=== PATIENT | male | born 1955 | race Hispanic/Latino ===

== ENCOUNTER 2017-03-17 17:38 | Inpatient (IN) | payer OTHER ==
[2017-03-17] MEDS ORDERED: NACL 0.9% 1000 ML 1,000 ML IV ONE (19:54)
[2017-03-17] MEDS ORDERED: ATIVAN IV ONE ×2 (19:54→23:19)
--- NOTE | 2017-03-17 20:03 | Emergency Department Report ---
ED Alcohol HPI - General Chief Complaint: Alcohol Stated Complaint: DIZZINESS Time Seen by Provider: 03/17/17 19:45 Source: patient, family Mode of arrival: Ambulatory Limitations: Altered Mental Status - History of Present Illness Initial Comments: 61 yo male who comes in today due to falls. The patient was brought in via ems after being found outside. The patient is under the influence of etoh, and also admits to a history of etoh abuse. He states that he wants to stop etoh intake. Denies any other pertinent past medical history. MD Complaint: alcohol intoxication Last Drink: unknown Chronic Alcohol Use: Yes Previous Visits for Alcohol Intoxication?: No Recent Trauma: Yes (falls-frequent ) Associated Symptoms: other (left wrist pain ) Treatments Prior to Arrival: none - Related Data Home Medications Medication Instructions Recorded Confirmed Last Taken No Known Home Medications [No 06/30/15 06/30/15 Unknown Reported Home Medications] Allergies Allergy/AdvReac Type Severity Reaction Status Date / Time olanzapine [From Zyprexa] Allergy Nausea Verified 07/01/15 10:54 ED Review of Systems ROS: Stated complaint: DIZZINESS Other details as noted in HPI Constitutional: denies: chills, fever Eyes: denies: eye pain, eye discharge, vision change Respiratory: denies: cough, shortness of breath, wheezing Cardiovascular: denies: chest pain, palpitations Endocrine: no symptoms reported Gastrointestinal: denies: abdominal pain, nausea, diarrhea Genitourinary: denies: urgency, dysuria Musculoskeletal: arthralgia, myalgia Skin: denies: rash, lesions Neurological: denies: headache, weakness, paresthesias Psychiatric: anxiety Hematological/Lymphatic: denies: easy bleeding, easy bruising ED Past Medical Hx - Past Medical History Previous Medical History?: Yes Hx Seizures: Yes Hx Psychiatric Treatment: Yes (anxiety psychosis) Additional medical history: Other Hx is unclear - Surgical History Past Surgical History?: Yes Additional Surgical History: R knee surgery, left lung injury - Social History Smoking Status: Unknown if ever smoked Substance Use Type: Alcohol - Medications Home Medications: Home Medications Medication Instructions Recorded Confirmed Last Taken Type No Known Home Medications [No 06/30/15 06/30/15 Unknown History Reported Home Medications] ED Physical Exam - General Limitations: Altered Mental Status General appearance: anxious - Head Head exam: Present: atraumatic, normocephalic - Eye Eye exam: Present: normal appearance - ENT ENT exam: Present: mucous membranes moist - Neck Neck exam: Present: normal inspection - Respiratory Respiratory exam: Present: normal lung sounds bilaterally. Absent: respiratory distress - Cardiovascular Cardiovascular Exam: Present: regular rate, normal rhythm. Absent: systolic murmur, diastolic murmur, rubs, gallop - Extremities Exam Extremities exam: Present: normal inspection - Back Exam Back exam: Present: normal inspection - Neurological Exam Neurological exam: Present: alert, other (anxious ) - Psychiatric Psychiatric exam: Present: anxious - Skin Skin exam: Present: warm, dry, intact, normal color. Absent: rash ED Course Vital Signs 03/17/17 03/17/17 19:23 21:44 Temperature 98.7 F Pulse Rate 84 54 L Respiratory 16 16 Rate Blood Pressure 128/75 Blood Pressure 130/72 [Left] O2 Sat by Pulse 96 96 Oximetry - Reevaluation(s) Reevaluation #1: 03/17/17 22:52 I spoke with the hospitalist about admitting the patient. Patient to be admitted for hyponatremia, dehydration, and a history of etoh abuse. ED Medical Decision Making - Lab Data Result diagrams: 03/17/17 20:05 03/17/17 20:05 - Radiology Data Radiology results: report reviewed (CT head/cervical spine-negative, forearm/ wrist radiograph-negative) - Medical Decision Making History of etoh abuse History of falls Hyponatremia Dehydration - Differential Diagnosis History of etoh abuse, history of falls, hyponatremia, dehydration Critical care attestation.: If time is entered above; I have spent that time in minutes in the direct care of this critically ill patient, excluding procedure time. ED Disposition Clinical Impression: ETOH abuse, Hyponatremia, Falls Disposition: OP ADMIT IP TO THIS HOSP Is pt being admited?: Yes Does the pt Need Aspirin: No Condition: Stable Referrals: NATALIA COLLAZO MD [Primary Care Provider] - 3-5 Days Time of Disposition: 22:57
[2017-03-17 20:08] LABS: Amphetamine Screen,Urine PRESUMPTIVE NEGATIVE; Benzodiazepines Screen,Urine PRESUMPTIVE NEGATIVE; Cannabinoid Screen,Urine PRESUMPTIVE NEGATIVE; Cocaine Screen,Urine PRESUMPTIVE NEGATIVE; Methadone Screen,Urine PRESUMPTIVE NEGATIVE; Opiate Screen,Urine PRESUMPTIVE NEGATIVE
[2017-03-17 20:15] LABS: Basophils % (Auto) 0.2 % (0.0-1.8); Eosinophils % (Auto) 0.1 % (0.0-4.3); Hemoglobin 13.6 gm/dl (11.8-15.2); Lymphocytes # (Auto) 1.5 K/mm3 (1.2-5.4); Mean Corpuscular HGB Conc 35 % (32-34); Mean Corpuscular Hemoglobin 33 pg (28-32); Mean Corpuscular Volume 94 fl (84-94); Monocytes % (Auto) 13.5 % (0.0-7.3); Platelet Count 197 K/mm3 (140-440); Red Blood Count 4.18 M/mm3 (3.65-5.03); Red Cell Distribution Width 13.9 % (13.2-15.2)
[2017-03-17] MEDS: 1: FOLVITE 1 MG, INFUVITE 10 ML, VITAMIN B-1 100 MG in NACL 0.9% 1000 ML 988.8 ML 2: NA IV SCH ×2 (20:20→20:41)
[2017-03-17 20:32] LABS: Alanine Aminotransferase 20 units/L (7-56); Albumin 3.7 g/dL (3.9-5); BUN/Creatinine Ratio 18; Blood Urea Nitrogen 9 mg/dL (9-20); Calcium 8.3 mg/dL (8.4-10.2); Hemolysis Index 15
--- NOTE | 2017-03-17 20:41 | Cat Scan Report ---
FINAL REPORT EXAM: CT HEAD/BRAIN WO CON HISTORY: fall TECHNIQUE: CT head without contrast PRIORS: None. FINDINGS: No acute intra-axial or extra-axial hemorrhage is identified. There is no evidence of midline shift or mass effect. The ventricles and sulci are within normal limits. Contreras-white matter differentiation is intact. No acute parenchymal abnormalities seen. Bony calvarium is grossly intact. There is mucosal thickening within the maxillary sinuses bilaterally IMPRESSION: Chronic maxillary sinusitis No acute intracranial findings
--- NOTE | 2017-03-17 20:47 | Cat Scan Report ---
FINAL REPORT EXAM: CT CERVICAL SPINE WO CON HISTORY: fall TECHNIQUE: CT cervical spine with reconstructions PRIORS: None. FINDINGS: Vertebral bodies demonstrate normal height and alignment. There is spondylosis with multiple prominent anterior osteophytes some of which are bridging throughout the cervical spine. There is disc space narrowing C3-C4-C5-C6 and C6-C7. The facet joints demonstrate normal alignment. The spinous processes are intact. Craniocervical junction is unremarkable. C1 and C2 are intact. IMPRESSION: Spondylosis multilevel degenerative disc disease No acute traumatic abnormality identified
--- NOTE | 2017-03-17 21:43 | XRay Report ---
FINAL REPORT PROCEDURE: Left forearm. TECHNIQUE: Single view. HISTORY: Injury, arm pain. COMPARISON: No prior studies are available for comparison. FINDINGS: The bones appear intact. There are no definite fractures. There is arthritis involving the radiocarpal joint. The soft tissues are unremarkable. IMPRESSION: Limited study. No evidence of fracture.
--- NOTE | 2017-03-17 21:44 | XRay Report ---
FINAL REPORT PROCEDURE: Left wrist. TECHNIQUE: Two views. HISTORY: Injury, wrist pain. COMPARISON: No prior studies are available for comparison. FINDINGS: The bones appear intact without evidence of fracture. There is osteoarthritis involving the radiocarpal joint. There is osteoarthritis involving the articulation of the 1st metacarpal with the trapezium. The soft tissues are unremarkable. IMPRESSION: Osteoarthritis. No evidence of fracture.
[2017-03-17] MEDS ORDERED: NACL 0.9% 1000 ML 1,000 ML IV SCH ×2 (23:00→23:45)
--- NOTE | 2017-03-17 23:55 | History and Physical Report ---
History of Present Illness Date of examination: 03/17/17 History of present illness: 61-year-old man with a history of alcohol abuse, hypertension, seizure, anxiety was brought to the emergency room because he sustained a fall, complaining of pain in the wrist. His last drink was 4 days ago Review Of Systems: Constitutional: no weight loss Ears, eyes, nose, mouth and throat: no nasal congestion, no nasal discharge, no sinus pressure, blurry vision, diplopia Neck: No neck pain or rigidity. Cardiovascular: No chest pain, palpitations Respiratory: No shortness of breath, cough Gastrointestinal: No abdominal pain, hematochezia Genitourinary : no dysuria, frequency , hematuria Musculoskeletal: no muscle ache Integumentary: no rash, no pruritis Neurological: no parathesias, focal weakness Endocrine: no cold or heat intolerance, no polyuria or polydipsia Hematologic/Lymphatic: no easy bruising, no easy bleeding, no gland swelling Allergic/Immunologic: no urticaria, no angioedema. PAST MEDICAL HISTORY:alcohol abuse, hypertension, seizure, anxiety PAST SURGICAL HISTORY: Right knee, neck surgery FAMILY HISTORY: Hypertension SOCIAL HISTORY: Drinks alcohol, refuse to quantify, no alcohol, drugs Medications and Allergies Allergies Allergy/AdvReac Type Severity Reaction Status Date / Time olanzapine [From Zyprexa] Allergy Nausea Verified 07/01/15 10:54 Home Medications Medication Instructions Recorded Confirmed Last Taken Type No Known Home Medications [No 06/30/15 06/30/15 Unknown History Reported Home Medications] Active Meds: Active Medications Folic Acid 1 mg/ Multivitamins /Minerals 10 ml/ Thiamine HCl 100 mg/ Sodium Chloride 1,000 mls @ 125 mls/hr IV .BY DURATION [facility] Last Admin: 03/17/17 20:41 Dose: 125 mls/hr Sodium Chloride (Nacl 0.9% 1000 Ml) 1,000 mls @ 125 mls/hr IV .BY DURATION [facility] Last Admin: 03/17/17 20:20 Dose: 125 mls/hr Sodium Chloride (Nacl 0.9% 1000 Ml) 1,000 mls @ 125 mls/hr IV DIRECT [facility] Exam - Physical Exam Narrative exam: Gen. appearance: Patient lying in bed in no acute distress HEENT: Normocephalic/atraumatic, pupils equal round reactive to light, extra occular movement intact, no scleral icterus, no JVD or thyromegaly or nodule, neck is supple, mucous membrane moist, no erythema or exudate Heart: S1-S2, regular rate and rhythm Lungs: Clear to auscultation bilateral breathing comfortable Abdomen: Positive bowel sounds, nontender, nondistended, no organomegaly Extremities: No edema, cyanosis, clubbing Neuro:: Oriented 3 , cranial nerves II-12 intact, speech, motor intact, + tremors Skin: No rash, nodules, warm dry - Constitutional Vitals: Temp Pulse Resp BP Pulse Ox 98.7 F 54 L 16 130/72 96 03/17/17 19:23 03/17/17 21:44 03/17/17 21:44 03/17/17 21:44 03/17/17 21:44 Results - Labs CBC & Chem 7: 03/23/17 05:45 03/23/17 05:45 Labs: Abnormal lab results 03/17/17 03/17/17 Range/Units 20:05 20:05 WBC 15.0 H (4.5-11.0) K/mm3 MCH 33 H (28-32) pg MCHC 35 H (32-34) % Lymph % (Auto) 10.0 L (13.4-35.0) % [place] % (Auto) 13.5 H (0.0-7.3) % [place] # 2.0 H (0.0-0.8) K/mm3 Seg Neutrophils % 76.2 H (40.0-70.0) % Seg Neutrophils # 11.4 H (1.8-7.7) K/mm3 Sodium 121 L (137-145) mmol/L Potassium 3.5 L (3.6-5.0) mmol/L Chloride 79.5 L (98-107) mmol/L Creatinine 0.5 L (0.8-1.5) mg/dL Glucose 118 H (75-100) mg/dL Calcium 8.3 L (8.4-10.2) mg/dL AST 49 H (5-40) units/L Total Protein 6.0 L (6.3-8.2) g/dL Albumin 3.7 L (3.9-5) g/dL - Imaging and Cardiology CT Scan - head: report reviewed Assessment and Plan CT spine, x-ray of the wrist and forearm reviewed Assessment Hyponatremia Alcohol abuse Seizure Hypertension Anxiety Plan Admit to medicine Start IV fluid, monitor sodium level Start CIWA protocol with IV Ativan Continued appropriate option medicationS DVT prophylaxis
[2017-03-17] MEDS ORDERED: MILK OF MAGNESIA PO PRN (23:56)
[2017-03-17] MEDS ORDERED: DULCOLAX PR PRN (23:56)
[2017-03-17] MEDS ORDERED: ZOFRAN IV PRN (23:56)
[2017-03-18] MEDS: LEVAQUIN 750MG/150ML 750 MG/150 ML BAG IV SCH ×2 (00:29→11:13)
[2017-03-18] MEDS ORDERED: ATIVAN ONE (00:33)
[2017-03-18] MEDS ORDERED: LEVAQUIN 750MG/150ML 750 MG/150 ML BAG IV ONE (00:34)
[2017-03-18 08:07] LABS: Basophils % (Auto) 0.5 % (0.0-1.8); Eosinophils % (Auto) 0.2 % (0.0-4.3); Hematocrit 38.4 % (35.5-45.6); Hemoglobin 13.4 gm/dl (11.8-15.2); Lymphocytes # (Auto) 1.2 K/mm3 (1.2-5.4); Lymphocytes % (Auto) 13.7 % (13.4-35.0); Mean Corpuscular HGB Conc 35 % (32-34); Mean Corpuscular Hemoglobin 33 pg (28-32); Mean Corpuscular Volume 93 fl (84-94); Monocytes # (Auto) 1.1 K/mm3 (0.0-0.8); Platelet Count 167 K/mm3 (140-440); Red Blood Count 4.11 M/mm3 (3.65-5.03); Red Cell Distribution Width 13.6 % (13.2-15.2)
[2017-03-18 08:36] LABS: BUN/Creatinine Ratio 14; Blood Urea Nitrogen 7 mg/dL (9-20); Calcium 8.1 mg/dL (8.4-10.2); Hemolysis Index 13
[2017-03-18 10:01] LABS: BUN/Creatinine Ratio 14; Blood Urea Nitrogen 7 mg/dL (9-20); Calcium 8.1 mg/dL (8.4-10.2); Hemolysis Index 15
[2017-03-18] MEDS: LOVENOX SUB-Q SCH (11:14)
[2017-03-18] MEDS: ATIVAN IV PRN ×2 (12:11→20:45)
[2017-03-18] MEDS: TYLENOL PO PRN (14:44)
[2017-03-18] MEDS: NACL 0.9% 1000 ML 1,000 ML IV SCH (14:49)
[2017-03-18 15:02] LABS: BUN/Creatinine Ratio 13; Blood Urea Nitrogen 9 mg/dL (9-20); Calcium 8.1 mg/dL (8.4-10.2); Hemolysis Index 6
--- NOTE | 2017-03-18 17:42 | Progress Note ---
Assessment and Plan Hyponatremia Alcohol abuse Hypokalemia and hypomagnesemia Seizure Hypertension Anxiety DVD Spine Plan Continue with IV fluid, monitor sodium level CIWA protocol with IV Ativan Anti Seizurre meds Continue with antihypertensive medications Supplemental potassium and magnesium DVT prophylaxis Subjective Date of service: 03/18/17 Principal diagnosis: alcohol withdrawal Interval history: Complains of not being able to sleep and shaking Objective - Constitutional Vitals: Vital Signs - 12hr 03/18/17 03/18/17 07:51 14:48 Temperature 99.3 F 98.8 F Pulse Rate 70 61 Respiratory 20 18 Rate Blood Pressure 133/68 99/56 O2 Sat by Pulse 93 93 Oximetry General appearance: Present: no acute distress, well-nourished - EENT Eyes: PERRL, EOM intact Ears: bilateral: normal - Neck Neck: supple, normal ROM - Respiratory Respiratory effort: normal Respiratory: bilateral: CTA - Cardiovascular Rhythm: regular Heart Sounds: Present: S1 & S2. Absent: gallop, rub Extremities: pulses intact, No edema, normal color, Full ROM - Gastrointestinal General gastrointestinal: Present: soft, non-tender, non-distended, normal bowel sounds - Integumentary Integumentary: clear, warm, dry - Musculoskeletal Musculoskeletal: 1, strength equal bilaterally - Neurologic Neurologic: moves all extremities - Psychiatric Psychiatric: memory intact, appropriate mood/affect, intact judgment & insight - Labs CBC & Chem 7: 03/18/17 Unknown 03/18/17 Unknown Labs: Abnormal lab results 03/17/17 03/17/17 03/18/17 Range/Units 20:05 20:05 09:05 WBC 15.0 H (4.5-11.0) K/mm3 MCH 33 H (28-32) pg MCHC 35 H (32-34) % Lymph % (Auto) 10.0 L (13.4-35.0) % [place] % (Auto) 13.5 H (0.0-7.3) % [place] # 2.0 H (0.0-0.8) K/mm3 Seg Neutrophils % 76.2 H (40.0-70.0) % Seg Neutrophils # 11.4 H (1.8-7.7) K/mm3 Sodium 121 L 128 L (137-145) mmol/L Potassium 3.5 L 3.0 L (3.6-5.0) mmol/L Chloride 79.5 L 88.3 L (98-107) mmol/L BUN 7 L (9-20) mg/dL Creatinine 0.5 L 0.5 L (0.8-1.5) mg/dL Glucose 118 H (75-100) mg/dL Calcium 8.3 L 8.1 L (8.4-10.2) mg/dL AST 49 H (5-40) units/L Total Protein 6.0 L (6.3-8.2) g/dL Albumin 3.7 L (3.9-5) g/dL 03/18/17 03/18/17 03/18/17 Range/Units 12:40 Unknown Unknown WBC (4.5-11.0) K/mm3 MCH 33 H (28-32) pg MCHC 35 H (32-34) % Lymph % (Auto) (13.4-35.0) % [place] % (Auto) 13.0 H (0.0-7.3) % [place] # 1.1 H (0.0-0.8) K/mm3 Seg Neutrophils % 72.6 H (40.0-70.0) % Seg Neutrophils # (1.8-7.7) K/mm3 Sodium 131 L 130 L D (137-145) mmol/L Potassium 3.0 L 3.0 L (3.6-5.0) mmol/L Chloride 89.5 L 89.6 L (98-107) mmol/L BUN 7 L (9-20) mg/dL Creatinine 0.7 L 0.5 L (0.8-1.5) mg/dL Glucose 102 H (75-100) mg/dL Calcium 8.1 L 8.1 L (8.4-10.2) mg/dL AST (5-40) units/L Total Protein (6.3-8.2) g/dL Albumin (3.9-5) g/dL
[2017-03-18] MEDS ORDERED: D5W/0.45% NACL/KCL 30 MEQ 30 MEQ/1,000 ML BAG IV SCH (18:00)
[2017-03-18] MEDS ORDERED: MAGNESIUM SULFATE 4GM/100ML 4 GM/100 ML BAG IV ONE (20:00)
[2017-03-18] MEDS ORDERED: VITAMIN B-1 100 MG, FOLVITE 1 MG, INFUVITE 10 ML in NACL 0.9% 1000 ML 1,000 ML IV ONE (20:00)
[2017-03-19] MEDS: ATIVAN IV PRN ×5 (00:42→20:50)
[2017-03-19] MEDS: LOVENOX SUB-Q SCH (10:02)
[2017-03-19] MEDS: FOLVITE PO SCH (10:02)
[2017-03-19] MEDS: VITAMIN B-1 PO SCH (10:02)
[2017-03-19] MEDS: LEVAQUIN PO SCH (10:03)
[2017-03-19] MEDS: THERAGRAN Tab PO SCH (10:03)
--- NOTE | 2017-03-19 18:11 | Progress Note ---
Assessment and Plan Delirium tremens Hyponatremia Alcohol abuse Hypokalemia and hypomagnesemia Seizure Hypertension Anxiety DVD Spine Plan Continue with IV fluid, monitor sodium level CIWA protocol with IV Ativan Anti Seizurre meds Continue with antihypertensive medications Supplemental potassium and magnesium DVT prophylaxis Subjective Date of service: 03/19/17 Principal diagnosis: alcohol withdrawal Interval history: Complains of not being able to sleep and shaking. Confused. Objective - Constitutional Vitals: Vital Signs - 12hr 03/19/17 03/19/17 07:46 17:08 Temperature 98.1 F 98.7 F Pulse Rate 99 H 113 H Respiratory 20 18 Rate Blood Pressure 149/81 144/89 O2 Sat by Pulse 95 97 Oximetry General appearance: Present: no acute distress, well-nourished, other (confused) - EENT Eyes: PERRL, EOM intact - Neck Neck: supple, normal ROM - Respiratory Respiratory effort: normal Respiratory: bilateral: CTA - Breasts Breasts: normal - Cardiovascular Rhythm: regular Heart Sounds: Present: S1 & S2. Absent: gallop, rub Extremities: pulses intact, No edema, normal color, Full ROM - Gastrointestinal General gastrointestinal: Present: soft, non-tender, non-distended, normal bowel sounds - Integumentary Integumentary: clear, warm, dry - Musculoskeletal Musculoskeletal: 1, strength equal bilaterally - Neurologic Neurologic: moves all extremities - Psychiatric Psychiatric: memory intact, appropriate mood/affect, intact judgment & insight - Labs CBC & Chem 7: 03/18/17 Unknown 03/18/17 Unknown
[2017-03-19] MEDS ORDERED: KCL 20MEQ/100ML 20 MEQ/100 ML BAG IV SCH (19:00)
[2017-03-19] MEDS: KCL 10MEQ/100ML 10 MEQ/100 ML BAG IV SCH (20:32)
[2017-03-19] MEDS: K-DUR PO SCH (21:11)
[2017-03-20] MEDS: KCL 10MEQ/100ML 10 MEQ/100 ML BAG IV SCH ×2 (00:02→03:41)
[2017-03-20] MEDS: ATIVAN IV PRN ×6 (00:02→19:26)
[2017-03-20] MEDS: D5W/0.45% NACL/KCL 30 MEQ 30 MEQ/1,000 ML BAG IV SCH ×2 (08:43→23:09)
[2017-03-20] MEDS: THERAGRAN Tab PO SCH (09:33)
[2017-03-20] MEDS: LOVENOX SUB-Q SCH (09:33)
[2017-03-20] MEDS: LEVAQUIN PO SCH (09:34)
[2017-03-20] MEDS: K-DUR PO SCH ×2 (09:34→23:10)
[2017-03-20] MEDS: FOLVITE PO SCH (09:34)
[2017-03-20] MEDS: VITAMIN B-1 PO SCH (09:37)
--- NOTE | 2017-03-20 13:56 | Progress Note ---
Assessment and Plan 61-year-old man with a history of alcohol abuse, hypertension, seizure, anxiety was brought to the emergency room because he sustained a fall, complaining of pain in the wrist. His last drink was 4 days ago Delirium tremens Hyponatremia Alcohol abuse Hypokalemia and hypomagnesemia Seizure Hypertension Anxiety DJD of the spine Plan Continue with IV fluid, monitor sodium level CIWA protocol with IV Ativan Anti Seizurre meds Continue with antihypertensive medications Supplemental potassium and magnesium Recheck labs DVT prophylaxis Subjective Date of service: 03/20/17 Principal diagnosis: alcohol withdrawal Interval history: Drowsy. Just had ativan per pt's nurse. No ovrnight event reported to me Objective - Exam Narrative Exam: Constitutional: Drowsy from lorazepam. Head: Normocephalic atraumatic Eyes: Pupils are equal round and reactive to light Nose: No enlarged turbinates, no septal deviation. Mouth: Moist mucous membranes. Neck: Supple no thyromegaly. No bruit. No JVD Heart: Regular rate and rhythm, S1-S2 abnormal. No rubs murmurs or gallop Lungs: Clear to auscultation bilaterally no rales or rhonchi Abdomen: Soft, nontender. Bowel sound are present. Extremities: No edema no cyanosis and no clubbing. Neuro: Drowsy. all his limbs. Second to 12th cranial nerves intact Skin: No rashes no hyperemic spots Psychiatry: Drowsy. Calm. - Constitutional Vitals: Vital Signs - 12hr 03/20/17 03/20/17 03/20/17 04:58 08:11 12:40 Temperature 97.9 F 98.9 F Pulse Rate 60 97 H 67 Respiratory 20 20 Rate Blood Pressure 153/113 161/82 152/90 O2 Sat by Pulse 95 97 96 Oximetry - Labs CBC & Chem 7: 03/18/17 Unknown 03/18/17 Unknown
[2017-03-20 14:25] LABS: Basophils # (Auto) 0.1 K/mm3 (0.0-0.1); Basophils % (Auto) 0.6 % (0.0-1.8); Eosinophils # (Auto) 0.1 K/mm3 (0.0-0.4); Eosinophils % (Auto) 0.8 % (0.0-4.3); Hematocrit 39.7 % (35.5-45.6); Hemoglobin 13.7 gm/dl (11.8-15.2); Lymphocytes # (Auto) 1.2 K/mm3 (1.2-5.4); Lymphocytes % (Auto) 10.4 % (13.4-35.0); Mean Corpuscular HGB Conc 35 % (32-34); Mean Corpuscular Hemoglobin 33 pg (28-32); Mean Corpuscular Volume 95 fl (84-94); Monocytes # (Auto) 1.7 K/mm3 (0.0-0.8); Monocytes % (Auto) 14.3 % (0.0-7.3); Platelet Count 218 K/mm3 (140-440); Red Cell Distribution Width 14.1 % (13.2-15.2)
[2017-03-20 14:57] LABS: BUN/Creatinine Ratio 8; Blood Urea Nitrogen 4 mg/dL (9-20); Calcium 8.5 mg/dL (8.4-10.2); Hemolysis Index 12
[2017-03-21] MEDS: ATIVAN IV PRN ×5 (00:30→22:11)
[2017-03-21 06:53] LABS: Hematocrit 40.5 % (35.5-45.6); Mean Corpuscular HGB Conc 35 % (32-34); Mean Corpuscular Hemoglobin 33 pg (28-32); Mean Corpuscular Volume 97 fl (84-94); Platelet Count 204 K/mm3 (140-440); Red Blood Count 4.19 M/mm3 (3.65-5.03); Red Cell Distribution Width 14.1 % (13.2-15.2)
[2017-03-21 07:01] LABS: BUN/Creatinine Ratio 10; Blood Urea Nitrogen 6 mg/dL (9-20); Calcium 8.8 mg/dL (8.4-10.2); Hemolysis Index 14
[2017-03-21 08:25] LABS: Band Neutrophils # (Manual) 0.3 K/mm3; Basophils % (Manual) 0 % (0.0-1.8); Total Cells Counted 100
[2017-03-21 08:26] LABS: Anisocytosis Few
[2017-03-21] MEDS: K-DUR PO SCH ×2 (10:20→22:11)
[2017-03-21] MEDS: FOLVITE PO SCH (10:20)
[2017-03-21] MEDS: LEVAQUIN PO SCH (10:20)
[2017-03-21] MEDS: LOVENOX SUB-Q SCH (10:20)
[2017-03-21] MEDS: THERAGRAN Tab PO SCH (10:21)
[2017-03-21] MEDS: VITAMIN B-1 PO SCH (10:21)
--- NOTE | 2017-03-21 19:29 | Progress Note ---
Assessment and Plan 61-year-old man with a history of alcohol abuse, hypertension, seizure, anxiety was brought to the emergency room because he sustained a fall, complaining of pain in the wrist. His last drink was 4 days ago Delirium tremens Hyponatremia Alcohol abuse Hypokalemia and hypomagnesemia Seizure Hypertension Anxiety DJD of the spine Plan Continue with IV fluid, monitor sodium level CIWA protocol with IV Ativan Anti Seizurre meds Continue with antihypertensive medications Supplemental potassium and magnesium Recheck labs DVT prophylaxis Disposition: For placement Subjective Date of service: 03/21/17 Principal diagnosis: alcohol withdrawal Interval history: Drowsy. still confused. No overnight event reported to me. reviewed lab and radiological data Objective - Exam Narrative Exam: Constitutional: Drowsy from lorazepam. Head: Normocephalic atraumatic Eyes: Pupils are equal round and reactive to light Nose: No enlarged turbinates, no septal deviation. Mouth: Moist mucous membranes. Neck: Supple no thyromegaly. No bruit. No JVD Heart: Regular rate and rhythm, S1-S2 abnormal. No rubs murmurs or gallop Lungs: Clear to auscultation bilaterally no rales or rhonchi Abdomen: Soft, nontender. Bowel sound are present. Extremities: No edema no cyanosis and no clubbing. Neuro: Drowsy. all his limbs. Second to 12th cranial nerves intact Skin: No rashes no hyperemic spots Psychiatry: Drowsy. Calm. - Constitutional Vitals: Vital Signs - 12hr 03/21/17 07:51 Temperature 99.5 F Pulse Rate 105 H Respiratory 30 H Rate Blood Pressure 126/84 O2 Sat by Pulse 96 Oximetry - Labs CBC & Chem 7: 03/21/17 04:40 03/21/17 04:40 Labs: Abnormal lab results 03/21/17 03/21/17 Range/Units 04:40 04:40 MCV 97 H (84-94) fl MCH 33 H (28-32) pg MCHC 35 H (32-34) % Seg Neuts % (Manual) 77.0 H (40.0-70.0) % Lymphocytes % (Manual) 11.0 L (13.4-35.0) % Monocytes % (Manual) 8.0 H (0.0-7.3) % Lymphocytes # (Manual) 1.1 L (1.2-5.4) K/mm3 Sodium 130 L (137-145) mmol/L Chloride 91.7 L (98-107) mmol/L BUN 6 L (9-20) mg/dL Creatinine 0.6 L (0.8-1.5) mg/dL Glucose 121 H (75-100) mg/dL
[2017-03-22] MEDS: ATIVAN IV PRN ×2 (02:48→23:43)
[2017-03-22] MEDS: NACL 0.9% 1000 ML 1,000 ML IV SCH ×2 (05:55→23:44)
[2017-03-22 07:33] LABS: Mean Corpuscular HGB Conc 33 % (32-34); Mean Corpuscular Hemoglobin 32 pg (28-32); Mean Corpuscular Volume 96 fl (84-94); Platelet Count 209 K/mm3 (140-440); Red Blood Count 4.08 M/mm3 (3.65-5.03); Red Cell Distribution Width 14.5 % (13.2-15.2)
[2017-03-22 07:48] LABS: BUN/Creatinine Ratio 15; Blood Urea Nitrogen 9 mg/dL (9-20); Calcium 8.3 mg/dL (8.4-10.2); Hemolysis Index 1
[2017-03-22 08:50] LABS: Basophils % (Manual) 0 % (0.0-1.8); Total Cells Counted 100
[2017-03-22 08:51] LABS: Anisocytosis Few; Macrocytosis Few; Platelet Estimate Consistent w Auto
[2017-03-22] MEDS: FOLVITE PO SCH (09:49)
[2017-03-22] MEDS: THERAGRAN Tab PO SCH (09:49)
[2017-03-22] MEDS: VITAMIN B-1 PO SCH (09:49)
[2017-03-22] MEDS: K-DUR PO SCH ×2 (09:49→22:52)
[2017-03-22] MEDS: LOVENOX SUB-Q SCH (09:49)
[2017-03-22] MEDS: LEVAQUIN PO SCH (09:50)
--- NOTE | 2017-03-22 10:05 | Progress Note ---
Assessment and Plan Assessment and plan: 61-year-old man with a history of alcohol abuse, hypertension, seizure, anxiety was brought to the emergency room because he sustained a fall, complaining of pain in the wrist. His last drink was 4 days ago Delirium tremens Hyponatremia Alcohol abuse Hypokalemia and hypomagnesemia Seizure Hypertension Anxiety DJD of the spine Plan Continue with IV fluid, monitor sodium level CIWA protocol with IV Ativan Anti Seizure meds Continue with antihypertensive medications Supplemental potassium and magnesium Recheck labs DVT prophylaxis Disposition: For placement History Interval history: Generalized weakness Hospitalist Physical - Physical exam Narrative exam: Gen Appearance: Not in acute distress HEENT: Normocephalic, atraumatic Lungs:Clear to auscultation bilaterally, no crackles or wheeze Heart :S1 and S2 regular, no murmurs, rubs or gallop Abdomen: Soft, non-tender, non distended, Normal bowel sounds Extremities no edema clubbing no cyanosis, Neuro: Awake,alert, no focal neurological signs - Constitutional Vitals: Temp Pulse Resp BP Pulse Ox 99.8 F H 109 H 20 116/60 97 03/21/17 23:30 03/22/17 08:19 03/21/17 23:30 03/22/17 08:19 03/22/17 08:19 Results - Labs CBC & Chem 7: 03/23/17 05:45 03/23/17 05:45 Labs: Laboratory Last Values WBC 7.3 K/mm3 (4.5-11.0) 03/22/17 06:40 RBC 4.08 M/mm3 (3.65-5.03) 03/22/17 06:40 Hgb 13.0 gm/dl (11.8-15.2) 03/22/17 06:40 Hct 39.0 % (35.5-45.6) 03/22/17 06:40 MCV 96 fl (84-94) H 03/22/17 06:40 MCH 32 pg (28-32) 03/22/17 06:40 MCHC 33 % (32-34) 03/22/17 06:40 RDW 14.5 % (13.2-15.2) 03/22/17 06:40 Plt Count 209 K/mm3 (140-440) 03/22/17 06:40 Lymph % (Auto) 10.4 % (13.4-35.0) L 03/20/17 13:44 Major % (Auto) Practice Managers 03/22/17 06:40 Eos % (Auto) 0.8 % (0.0-4.3) 03/20/17 13:44 Baso % (Auto) 0.6 % (0.0-1.8) 03/20/17 13:44 Lymph # 1.2 K/mm3 (1.2-5.4) 03/20/17 13:44 Major # 1.7 K/mm3 (0.0-0.8) H 03/20/17 13:44 Eos # 0.1 K/mm3 (0.0-0.4) 03/20/17 13:44 Baso # 0.1 K/mm3 (0.0-0.1) 03/20/17 13:44 Add Manual Diff Complete 03/22/17 06:40 Total Counted 100 03/22/17 06:40 Seg Neutrophils % 73.9 % (40.0-70.0) H 03/20/17 13:44 Seg Neuts % (Manual) 65.0 % (40.0-70.0) 03/22/17 06:40 Band Neutrophils % 0 % 03/22/17 06:40 Lymphocytes % (Manual) 11.0 % (13.4-35.0) L 03/22/17 06:40 Reactive Lymphs % (Man) 0 % 03/22/17 06:40 Monocytes % (Manual) 22.0 % (0.0-7.3) H 03/22/17 06:40 Eosinophils % (Manual) 2.0 % (0.0-4.3) 03/22/17 06:40 Basophils % (Manual) 0 % (0.0-1.8) 03/22/17 06:40 Metamyelocytes % 0 % 03/22/17 06:40 Myelocytes % 0 % 03/22/17 06:40 Promyelocytes % 0 % 03/22/17 06:40 Blast Cells % 0 % 03/22/17 06:40 Nucleated RBC % Not Reportable 03/22/17 06:40 Seg Neutrophils # 8.7 K/mm3 (1.8-7.7) H 03/20/17 13:44 Seg Neutrophils # Man 4.7 K/mm3 (1.8-7.7) 03/22/17 06:40 Band Neutrophils # 0.0 K/mm3 03/22/17 06:40 Lymphocytes # (Manual) 0.8 K/mm3 (1.2-5.4) L 03/22/17 06:40 Abs React Lymphs (Man) 0.0 K/mm3 03/22/17 06:40 Monocytes # (Manual) 1.6 K/mm3 (0.0-0.8) H 03/22/17 06:40 Eosinophils # (Manual) 0.1 K/mm3 (0.0-0.4) 03/22/17 06:40 Basophils # (Manual) 0.0 K/mm3 (0.0-0.1) 03/22/17 06:40 Metamyelocytes # 0.0 K/mm3 03/22/17 06:40 Myelocytes # 0.0 K/mm3 03/22/17 06:40 Promyelocytes # 0.0 K/mm3 03/22/17 06:40 Blast Cells # 0.0 K/mm3 03/22/17 06:40 WBC Morphology Not Reportable 03/22/17 06:40 Hypersegmented Neuts Not Reportable 03/22/17 06:40 Hyposegmented Neuts Not Reportable 03/22/17 06:40 Hypogranular Neuts Not Reportable 03/22/17 06:40 Smudge Cells Not Reportable 03/22/17 06:40 Toxic Granulation Not Reportable 03/22/17 06:40 Toxic Vacuolation Not Reportable 03/22/17 06:40 Dohle Bodies Not Reportable 03/22/17 06:40 Pelger-Huet Anomaly Not Reportable 03/22/17 06:40 Lana Rods Not Reportable 03/22/17 06:40 Platelet Estimate Consistent w auto 03/22/17 06:40 Clumped Platelets Not Reportable 03/22/17 06:40 Plt Clumps, EDTA Not Reportable 03/22/17 06:40 Large Platelets Not Reportable 03/22/17 06:40 Giant Platelets Not Reportable 03/22/17 06:40 Platelet Satelliting Not Reportable 03/22/17 06:40 Plt Morphology Comment Not Reportable 03/22/17 06:40 RBC Morphology Not Reportable 03/22/17 06:40 Dimorphic RBCs Not Reportable 03/22/17 06:40 Polychromasia Not Reportable 03/22/17 06:40 Hypochromasia Not Reportable 03/22/17 06:40 Poikilocytosis Not Reportable 03/22/17 06:40 Anisocytosis Few 03/22/17 06:40 Microcytosis Not Reportable 03/22/17 06:40 Macrocytosis Few 03/22/17 06:40 Spherocytes Not Reportable 03/22/17 06:40 Pappenheimer Bodies Not Reportable 03/22/17 06:40 Sickle Cells Not Reportable 03/22/17 06:40 Target Cells Not Reportable 03/22/17 06:40 Tear Drop Cells Not Reportable 03/22/17 06:40 Ovalocytes Not Reportable 03/22/17 06:40 Helmet Cells Not Reportable 03/22/17 06:40 Alfonso-Earth Bodies Not Reportable 03/22/17 06:40 [place] Rings Not Reportable 03/22/17 06:40 Osman Cells Not Reportable 03/22/17 06:40 Bite Cells Not Reportable 03/22/17 06:40 Crenated Cell Not Reportable 03/22/17 06:40 Elliptocytes Not Reportable 03/22/17 06:40 Acanthocytes (Spur) Not Reportable 03/22/17 06:40 Rouleaux Not Reportable 03/22/17 06:40 Hemoglobin C Crystals Not Reportable 03/22/17 06:40 Schistocytes Not Reportable 03/22/17 06:40 Malaria parasites Not Reportable 03/22/17 06:40 Shahzad Bodies Not Reportable 03/22/17 06:40 Hem Pathologist Commnt No 03/22/17 06:40 Sodium 132 mmol/L (137-145) L 03/22/17 06:40 Potassium 4.2 mmol/L (3.6-5.0) 03/22/17 06:40 Chloride 95.5 mmol/L (98-107) L 03/22/17 06:40 Carbon Dioxide 25 mmol/L (22-30) 03/22/17 06:40 Anion Gap 16 mmol/L 03/22/17 06:40 BUN 9 mg/dL (9-20) 03/22/17 06:40 Creatinine 0.6 mg/dL (0.8-1.5) L 03/22/17 06:40 Estimated GFR > 60 ml/min 03/22/17 06:40 BUN/Creatinine Ratio 15 % 03/22/17 06:40 Glucose 107 mg/dL (75-100) H 03/22/17 06:40 Calcium 8.3 mg/dL (8.4-10.2) L 03/22/17 06:40 Phosphorus 2.40 mg/dL (2.5-4.5) L 03/20/17 14:14 Magnesium 1.50 mg/dL (1.7-2.3) L 03/20/17 14:14 Total Bilirubin 1.20 mg/dL (0.1-1.2) 03/17/17 20:05 AST 49 units/L (5-40) H 03/17/17 20:05 ALT 20 units/L (7-56) 03/17/17 20:05 Alkaline Phosphatase 75 units/L (35-129) 03/17/17 20:05 Total Protein 6.0 g/dL (6.3-8.2) L 03/17/17 20:05 Albumin 3.7 g/dL (3.9-5) L 03/17/17 20:05 Albumin/Globulin Ratio 1.6 % 03/17/17 20:05 Urine Opiates Screen Presumptive negative 03/17/17 19:49 Urine Methadone Screen Presumptive negative 03/17/17 19:49 Ur Barbiturates Screen Presumptive negative 03/17/17 19:49 Ur Phencyclidine Scrn Presumptive negative 03/17/17 19:49 Ur Amphetamines Screen Presumptive negative 03/17/17 19:49 U Benzodiazepines Scrn Presumptive negative 03/17/17 19:49 Urine Cocaine Screen Presumptive negative 03/17/17 19:49 U Marijuana (THC) Screen Presumptive negative 03/17/17 19:49 Drugs of Abuse Note Disclamer 03/17/17 19:49 Plasma/Serum Alcohol < 0.01 gm% (0-0.07) 03/17/17 20:05
[2017-03-22 12:10] LABS: Magnesium 1.5 mg/dL (1.7-2.3)
[2017-03-22] MEDS ORDERED: MAGNESIUM SULFATE 4GM/100ML 4 GM/100 ML BAG IV ONE (14:11)
[2017-03-22] MEDS: TYLENOL PO PRN (23:45)
[2017-03-23] MEDS: ATIVAN IV PRN ×2 (03:15→22:02)
[2017-03-23 06:51] LABS: Hematocrit 36.1 % (35.5-45.6); Hemoglobin 12.4 gm/dl (11.8-15.2); Mean Corpuscular HGB Conc 34 % (32-34); Mean Corpuscular Hemoglobin 33 pg (28-32); Mean Corpuscular Volume 95 fl (84-94); Platelet Count 214 K/mm3 (140-440); Red Cell Distribution Width 14.7 % (13.2-15.2)
[2017-03-23 08:23] LABS: BUN/Creatinine Ratio 15; Blood Urea Nitrogen 9 mg/dL (9-20); Hemolysis Index 3
[2017-03-23 08:51] LABS: Anisocytosis Few; Band Neutrophils # (Manual) 0.1 K/mm3; Basophils % (Manual) 0 % (0.0-1.8); Total Cells Counted 100
[2017-03-23] MEDS: LEVAQUIN PO SCH (10:18)
[2017-03-23] MEDS: K-DUR PO SCH ×2 (10:18→22:02)
[2017-03-23] MEDS: FOLVITE PO SCH (10:18)
[2017-03-23] MEDS: THERAGRAN Tab PO SCH (10:18)
[2017-03-23] MEDS: LOVENOX SUB-Q SCH (10:19)
[2017-03-23] MEDS: VITAMIN B-1 PO SCH (10:19)
[2017-03-23] MEDS: NACL 0.9% 1000 ML 1,000 ML IV SCH ×2 (10:20→22:02)
--- NOTE | 2017-03-23 16:56 | Progress Note ---
Hospitalist Physical - Physical exam Narrative exam: Gen Appearance: Not in acute distress HEENT: Normocephalic, atraumatic Lungs:Clear to auscultation bilaterally, no crackles or wheeze Heart :S1 and S2 regular, no murmurs, rubs or gallop Abdomen: Soft, non-tender, non distended, Normal bowel sounds Extremities no edema clubbing no cyanosis, Neuro: AAO x 3, normal speech, no focal neurological signs - Constitutional Vitals: Temp Pulse Resp BP Pulse Ox 98.6 F 100 H 18 124/82 96 03/23/17 15:15 03/23/17 15:15 03/23/17 15:15 03/23/17 15:15 03/23/17 15:15 General appearance: Present: no acute distress, well-nourished, other (confused) Results - Labs CBC & Chem 7: 03/23/17 05:45 03/23/17 05:45 Labs: Laboratory Last Values WBC 6.6 K/mm3 (4.5-11.0) 03/23/17 05:45 RBC 3.80 M/mm3 (3.65-5.03) 03/23/17 05:45 Hgb 12.4 gm/dl (11.8-15.2) 03/23/17 05:45 Hct 36.1 % (35.5-45.6) 03/23/17 05:45 MCV 95 fl (84-94) H 03/23/17 05:45 MCH 33 pg (28-32) H 03/23/17 05:45 MCHC 34 % (32-34) 03/23/17 05:45 RDW 14.7 % (13.2-15.2) 03/23/17 05:45 Plt Count 214 K/mm3 (140-440) 03/23/17 05:45 Lymph % (Auto) 10.4 % (13.4-35.0) L 03/20/17 13:44 [place]mer % (Auto) Developer Programmer 03/23/17 05:45 Eos % (Auto) 0.8 % (0.0-4.3) 03/20/17 13:44 Baso % (Auto) 0.6 % (0.0-1.8) 03/20/17 13:44 Lymph # 1.2 K/mm3 (1.2-5.4) 03/20/17 13:44 [place] # 1.7 K/mm3 (0.0-0.8) H 03/20/17 13:44 Eos # 0.1 K/mm3 (0.0-0.4) 03/20/17 13:44 Baso # 0.1 K/mm3 (0.0-0.1) 03/20/17 13:44 Add Manual Diff Complete 03/23/17 05:45 Total Counted 100 03/23/17 05:45 Seg Neutrophils % 73.9 % (40.0-70.0) H 03/20/17 13:44 Seg Neuts % (Manual) 62.0 % (40.0-70.0) 03/23/17 05:45 Band Neutrophils % 1.0 % 03/23/17 05:45 Lymphocytes % (Manual) 15.0 % (13.4-35.0) 03/23/17 05:45 Reactive Lymphs % (Man) 0 % 03/23/17 05:45 Monocytes % (Manual) 18.0 % (0.0-7.3) H 03/23/17 05:45 Eosinophils % (Manual) 4.0 % (0.0-4.3) 03/23/17 05:45 Basophils % (Manual) 0 % (0.0-1.8) 03/23/17 05:45 Metamyelocytes % 0 % 03/23/17 05:45 Myelocytes % 0 % 03/23/17 05:45 Promyelocytes % 0 % 03/23/17 05:45 Blast Cells % 0 % 03/23/17 05:45 Nucleated RBC % Not Reportable 03/23/17 05:45 Seg Neutrophils # 8.7 K/mm3 (1.8-7.7) H 03/20/17 13:44 Seg Neutrophils # Man 4.1 K/mm3 (1.8-7.7) 03/23/17 05:45 Band Neutrophils # 0.1 K/mm3 03/23/17 05:45 Lymphocytes # (Manual) 1.0 K/mm3 (1.2-5.4) L 03/23/17 05:45 Abs React Lymphs (Man) 0.0 K/mm3 03/23/17 05:45 Monocytes # (Manual) 1.2 K/mm3 (0.0-0.8) H 03/23/17 05:45 Eosinophils # (Manual) 0.3 K/mm3 (0.0-0.4) 03/23/17 05:45 Basophils # (Manual) 0.0 K/mm3 (0.0-0.1) 03/23/17 05:45 Metamyelocytes # 0.0 K/mm3 03/23/17 05:45 Myelocytes # 0.0 K/mm3 03/23/17 05:45 Promyelocytes # 0.0 K/mm3 03/23/17 05:45 Blast Cells # 0.0 K/mm3 03/23/17 05:45 WBC Morphology Not Reportable 03/23/17 05:45 Hypersegmented Neuts Not Reportable 03/23/17 05:45 Hyposegmented Neuts Not Reportable 03/23/17 05:45 Hypogranular Neuts Not Reportable 03/23/17 05:45 Smudge Cells Not Reportable 03/23/17 05:45 Toxic Granulation Not Reportable 03/23/17 05:45 Toxic Vacuolation Not Reportable 03/23/17 05:45 Dohle Bodies Not Reportable 03/23/17 05:45 Pelger-Huet Anomaly Not Reportable 03/23/17 05:45 Lana Rods Not Reportable 03/23/17 05:45 Platelet Estimate Not Reportable 03/23/17 05:45 Clumped Platelets Not Reportable 03/23/17 05:45 Plt Clumps, EDTA Not Reportable 03/23/17 05:45 Large Platelets Not Reportable 03/23/17 05:45 Giant Platelets Not Reportable 03/23/17 05:45 Platelet Satelliting Not Reportable 03/23/17 05:45 Plt Morphology Comment Not Reportable 03/23/17 05:45 RBC Morphology Not Reportable 03/23/17 05:45 Dimorphic RBCs Not Reportable 03/23/17 05:45 Polychromasia Not Reportable 03/23/17 05:45 Hypochromasia Not Reportable 03/23/17 05:45 Poikilocytosis Not Reportable 03/23/17 05:45 Anisocytosis Few 03/23/17 05:45 Microcytosis Not Reportable 03/23/17 05:45 Macrocytosis Not Reportable 03/23/17 05:45 Spherocytes Not Reportable 03/23/17 05:45 Pappenheimer Bodies Not Reportable 03/23/17 05:45 Sickle Cells Not Reportable 03/23/17 05:45 Target Cells Not Reportable 03/23/17 05:45 Tear Drop Cells Not Reportable 03/23/17 05:45 Ovalocytes Not Reportable 03/23/17 05:45 Helmet Cells Not Reportable 03/23/17 05:45 Alfonso-Ak Chin Bodies Not Reportable 03/23/17 05:45 [place] Rings Not Reportable 03/23/17 05:45 Osman Cells Not Reportable 03/23/17 05:45 Bite Cells Not Reportable 03/23/17 05:45 Crenated Cell Not Reportable 03/23/17 05:45 Elliptocytes Not Reportable 03/23/17 05:45 Acanthocytes (Spur) Not Reportable 03/23/17 05:45 Rouleaux Not Reportable 03/23/17 05:45 Hemoglobin C Crystals Not Reportable 03/23/17 05:45 Schistocytes Not Reportable 03/23/17 05:45 Malaria parasites Not Reportable 03/23/17 05:45 Shahzad Bodies Not Reportable 03/23/17 05:45 Hem Pathologist Commnt No 03/23/17 05:45 Sodium 135 mmol/L (137-145) L 03/23/17 05:45 Potassium 4.4 mmol/L (3.6-5.0) 03/23/17 05:45 Chloride 98.6 mmol/L (98-107) 03/23/17 05:45 Carbon Dioxide 23 mmol/L (22-30) 03/23/17 05:45 Anion Gap 18 mmol/L 03/23/17 05:45 BUN 9 mg/dL (9-20) 03/23/17 05:45 Creatinine 0.6 mg/dL (0.8-1.5) L 03/23/17 05:45 Estimated GFR > 60 ml/min 03/23/17 05:45 BUN/Creatinine Ratio 15 % 03/23/17 05:45 Glucose 106 mg/dL (75-100) H 03/23/17 05:45 Calcium 8.0 mg/dL (8.4-10.2) L 03/23/17 05:45 Phosphorus 3.00 mg/dL (2.5-4.5) 03/22/17 11:09 Magnesium 2.00 mg/dL (1.7-2.3) 03/23/17 05:45 Total Bilirubin 1.20 mg/dL (0.1-1.2) 03/17/17 20:05 AST 49 units/L (5-40) H 03/17/17 20:05 ALT 20 units/L (7-56) 03/17/17 20:05 Alkaline Phosphatase 75 units/L (35-129) 03/17/17 20:05 Total Protein 6.0 g/dL (6.3-8.2) L 03/17/17 20:05 Albumin 3.7 g/dL (3.9-5) L 03/17/17 20:05 Albumin/Globulin Ratio 1.6 % 03/17/17 20:05 Urine Opiates Screen Presumptive negative 03/17/17 19:49 Urine Methadone Screen Presumptive negative 03/17/17 19:49 Ur Barbiturates Screen Presumptive negative 03/17/17 19:49 Ur Phencyclidine Scrn Presumptive negative 03/17/17 19:49 Ur Amphetamines Screen Presumptive negative 03/17/17 19:49 U Benzodiazepines Scrn Presumptive negative 03/17/17 19:49 Urine Cocaine Screen Presumptive negative 03/17/17 19:49 U Marijuana (THC) Screen Presumptive negative 03/17/17 19:49 Drugs of Abuse Note Disclamer 03/17/17 19:49 Plasma/Serum Alcohol < 0.01 gm% (0-0.07) 03/17/17 20:05
[2017-03-23] MEDS: TYLENOL PO PRN (22:03)
[2017-03-24] MEDS: NACL 0.9% 1000 ML 1,000 ML IV SCH (06:25)
[2017-03-24] MEDS: LEVAQUIN PO SCH (11:33)
[2017-03-24] MEDS: K-DUR PO SCH (11:33)
[2017-03-24] MEDS: THERAGRAN Tab PO SCH (11:33)
[2017-03-24] MEDS: FOLVITE PO SCH (11:33)
[2017-03-24] MEDS: VITAMIN B-1 PO SCH (11:34)
[2017-03-24] MEDS: LOVENOX SUB-Q SCH (11:34)
--- NOTE | 2017-03-24 12:15 | Discharge Summary ---
Providers - Providers Date of Admission: 03/17/17 23:56 Date of discharge: 03/24/17 Attending physician: NATALIA GOMEZ 03/23/17 10:13 Physical Therapy Evaluation and Treat [CONS] Routine Comment: Reason For Exam: Gen weakness Primary care physician: NATALIA COLLAZO Hospitalization Condition: Fair Disposition: DC-01 TO HOME OR SELFCARE Core Measure Documentation - Palliative Care Palliative Care/ Comfort Measures: Not Applicable - Core Measures Any of the following diagnoses?: none Exam - Constitutional Vitals: Temp Pulse Resp BP Pulse Ox 97.6 F 91 H 20 144/86 95 03/24/17 07:44 03/24/17 00:23 03/24/17 07:44 03/24/17 07:44 03/24/17 00:23 Plan Activity: advance as tolerated Diet: regular Additional Instructions: 1.Follow up with PCP or [facility] in 1 week. Follow up with: NATALIA COLLAZO MD [Primary Care Provider] - 3-5 Days Prescriptions: Atenolol [Tenormin] 25 mg PO QDAY #30 tablet Folic Acid [Folvite] 1 mg PO DAILY #30 tablet Multivitamin Tab [Multiple Vitamin TAB (Theragran)] 1 each PO DAILY #30 tablet Thiamine [Vitamin B-1] 100 mg PO QDAY #30 tablet
[2017-03-24] MEDS ORDERED: TENORMIN PO SCH (13:00)
[2017-03-24 13:42] VITALS: BP 127/73
== END 2017-03-24 16:20 | disposition home or self-care (01) | DRG 92 ==
LOC: ED 17:38 → 3A 23:56
PROVIDERS: ADMIT Internal Medicine; ATTEND Internal Medicine
DX: G25.2 Other specified forms of tremor (principal); E87.1 Hypo-osmolality and hyponatremia; F41.9 Anxiety disorder, unspecified; F10.10 Alcohol abuse, uncomplicated; Y90.9 Presence of alcohol in blood, level not specified; E87.6 Hypokalemia; E83.42 Hypomagnesemia; Z82.49 Family history of ischemic heart disease and other diseases of the circulatory system; Z88.8 Allergy status to other drugs, medicaments and biological substances
CPT/HCPCS: 36415; 70450; 72125; 80048; 80053; 80307; 80320; 83735; 84100; 85007; 85025; G0480; J1650; J1956; J2060; J3411; J3475; J3480; J7030

== ENCOUNTER 2017-03-25 18:51 | Emergency (ER) | payer SELFPAY ==
[2017-03-25] MEDS ORDERED: NACL 0.9% 1000 ML 1,000 ML IV ONE (23:25)
[2017-03-26] MEDS ORDERED: TYLENOL ONE (01:00)
[2017-03-26 01:01] LABS: Hematocrit 35.3 % (35.5-45.6); Hemoglobin 12.3 gm/dl (11.8-15.2); Mean Corpuscular HGB Conc 35 % (32-34); Mean Corpuscular Hemoglobin 33 pg (28-32); Mean Corpuscular Volume 94 fl (84-94); Platelet Count 413 K/mm3 (140-440); Red Blood Count 3.77 M/mm3 (3.65-5.03); Red Cell Distribution Width 14.2 % (13.2-15.2)
[2017-03-26] MEDS ORDERED: TYLENOL PO ONE (01:01)
[2017-03-26 01:04] LABS: BUN/Creatinine Ratio 20; Blood Urea Nitrogen 10 mg/dL (9-20); Calcium 8.5 mg/dL (8.4-10.2); Hemolysis Index 6
--- NOTE | 2017-03-26 01:22 | XRay Report ---
FINAL REPORT PROCEDURE: XR KNEE BILAT 1-2V TECHNIQUE: RIGHT knee radiographs, AP, lateral and sunrise views. CPT 19390 HISTORY: fall COMPARISON: No prior studies are available for comparison. FINDINGS: RIGHT KNEE: There is moderate degenerative arthrosis of the knee and patellofemoral joint. There are ossified bodies in the popliteal fossa which could be fabellas. Ossification in chronic popliteal cyst also considered. There is no fracture or malalignment. LEFT KNEE: There is chronic degenerative arthrosis of the knee joint and patellofemoral joint. There is no fracture or malalignment. Soft tissues are unremarkable. IMPRESSION: Chronic changes as described. There is no acute abnormality..
[2017-03-26 04:03] LABS: Band Neutrophils # (Manual) 0.3 K/mm3; Total Cells Counted 100
[2017-03-26 04:04] LABS: RBC Morphology Normal
[2017-03-26] MEDS ORDERED: NORCO 5/325 PO ONE (07:35)
--- NOTE | 2017-03-26 07:42 | Emergency Department Report ---
HPI - General Chief Complaint: Fall Time Seen by Provider: 03/26/17 07:23 - HPI HPI: Room 19 The patient is a 61-year-old male presenting with a chief complaint knee pain and back pain. Patient states for the past 2-3 days his knees would "pop out of place." The patient states yesterday he fell in the snow injuring his knees and low back. The patient is requesting a walker Location: [See above] Duration: 2-3 days Quality: Pain Severity: Moderate Modifying factors: [see above] Context: [see above] Mode of transportation: [not driving] ED Past Medical Hx - Past Medical History Hx Seizures: Yes Hx Psychiatric Treatment: Yes (anxiety psychosis) Additional medical history: Other Hx is unclear - Surgical History Past Surgical History?: No Additional Surgical History: R knee surgery, left lung injury - Family History Family history: no significant - Social History Smoking Status: Never Smoker Substance Use Type: None (denies illicit drug use) - Medications Home Medications: Home Medications Medication Instructions Recorded Confirmed Last Taken Type Atenolol [Tenormin] 25 mg PO QDAY #30 tablet 03/24/17 Unknown Rx Folic Acid [Folvite] 1 mg PO DAILY #30 tablet 03/24/17 Unknown Rx Multivitamin Tab [Multiple Vitamin 1 each PO DAILY #30 tablet 03/24/17 Unknown Rx TAB (Theragran)] Thiamine [Vitamin B-1] 100 mg PO QDAY #30 tablet 03/24/17 Unknown Rx HYDROcodone/APAP 5-325 [[place] 1 - 2 each PO Q6HR PRN #14 tablet 03/26/17 Unknown Rx 5/325] Naproxen [Naprosyn] 500 mg PO Q12H PRN #20 tablet 03/26/17 Unknown Rx ED Review of Systems ROS: Stated complaint: ETOH KNEES HURT Other details as noted in HPI Musculoskeletal: back pain, arthralgia Physical Exam - Physical Exam Vital Signs: Vital Signs 03/25/17 03/26/17 03/26/17 23:06 03:28 07:03 Temperature 98.9 F Pulse Rate 102 H 68 Respiratory 20 20 Rate Blood Pressure 74/50 115/68 [Left] O2 Sat by Pulse 98 Oximetry Physical Exam: GENERAL: The patient is well-developed male with poor hygiene lying on stretcher not appearing to be in acute distress HEENT: Normocephalic. Atraumatic. Extraocular motions are intact. Patient has moist mucous membranes. Partial blindness NECK: Supple. Trachea midline CHEST/LUNGS: Clear to auscultation. There is no respiratory distress noted. HEART/CARDIOVASCULAR: Regular. There is no tachycardia. There is no gallop rub or murmur. ABDOMEN: Abdomen is soft, nontender. Patient has normal bowel sounds. There is no abdominal distention. SKIN: There is no rash. There is no edema. There is no diaphoresis. NEURO: The patient is awake, alert, and oriented. The patient is cooperative. The patient has no focal neurologic deficits. The patient has normal speech. Cranial nerves II through XII grossly intact (except cranial nerve II with patient's partial blindness), no drift MUSCULOSKELETAL: There is no lumbar axial step off. No effusion appreciated or knees bilaterally. There is no evidence of acute injury. ED Course Vital Signs 03/25/17 03/26/17 03/26/17 23:06 03:28 07:03 Temperature 98.9 F Pulse Rate 102 H 68 Respiratory 20 20 Rate Blood Pressure 74/50 115/68 [Left] O2 Sat by Pulse 98 Oximetry ED Medical Decision Making - Lab Data Result diagrams: 03/25/17 23:18 03/25/17 23:18 Laboratory Tests 03/25/17 03/25/17 23:18 23:18 WBC 8.6 RBC 3.77 Hgb 12.3 Hct 35.3 L MCV 94 MCH 33 H MCHC 35 H RDW 14.2 Plt Count 413 [place] % (Auto) Hairspring Setter Add Manual Diff Complete Total Counted 100 Seg Neuts % (Manual) 68.0 Band Neutrophils % 3.0 Lymphocytes % (Manual) 14.0 Reactive Lymphs % (Man) 0 Monocytes % (Manual) 11.0 H Eosinophils % (Manual) 2.0 Basophils % (Manual) 2.0 H Metamyelocytes % 0 Myelocytes % 0 Promyelocytes % 0 Blast Cells % 0 Nucleated RBC % Not Reportable Seg Neutrophils # Man 5.8 Band Neutrophils # 0.3 Lymphocytes # (Manual) 1.2 Abs React Lymphs (Man) 0.0 Monocytes # (Manual) 0.9 H Eosinophils # (Manual) 0.2 Basophils # (Manual) 0.2 H Metamyelocytes # 0.0 Myelocytes # 0.0 Promyelocytes # 0.0 Blast Cells # 0.0 WBC Morphology Not Reportable Hypersegmented Neuts Not Reportable Hyposegmented Neuts Not Reportable Hypogranular Neuts Not Reportable Smudge Cells Not Reportable Toxic Granulation Not Reportable Toxic Vacuolation Not Reportable Dohle Bodies Not Reportable Pelger-Huet Anomaly Not Reportable Lana Rods Not Reportable Platelet Estimate Appears normal Clumped Platelets Not Reportable Plt Clumps, EDTA Not Reportable Large Platelets Not Reportable Giant Platelets Not Reportable Platelet Satelliting Not Reportable Plt Morphology Comment Not Reportable RBC Morphology Normal Dimorphic RBCs Not Reportable Polychromasia Not Reportable Hypochromasia Not Reportable Poikilocytosis Not Reportable Anisocytosis Not Reportable Microcytosis Not Reportable Macrocytosis Not Reportable Spherocytes Not Reportable Pappenheimer Bodies Not Reportable Sickle Cells Not Reportable Target Cells Not Reportable Tear Drop Cells Not Reportable Ovalocytes Not Reportable Helmet Cells Not Reportable Alfonso-George Bodies Not Reportable [place] Rings Not Reportable Osman Cells Not Reportable Bite Cells Not Reportable Crenated Cell Not Reportable Elliptocytes Not Reportable Acanthocytes (Spur) Not Reportable Rouleaux Not Reportable Hemoglobin C Crystals Not Reportable Schistocytes Not Reportable Malaria parasites Not Reportable Shahzad Bodies Not Reportable Hem Pathologist Commnt No Sodium 130 L Potassium 4.3 Chloride 94.2 L Carbon Dioxide 20 L Anion Gap 20 BUN 10 Creatinine 0.5 L Estimated GFR > 60 BUN/Creatinine Ratio 20 Glucose 97 Calcium 8.5 - Radiology Data Radiology results: report reviewed (bilateral knee x-ray), image reviewed ( bilateral knee x-ray, lumbar spine x-ray) interpreted by me: Bilateral knee [id number] changes. No acute fracture seen Lumbar spine x-ray-no acute fracture. Degenerative changes FINAL REPORT PROCEDURE: XR KNEE BILAT 1-2V TECHNIQUE: RIGHT knee radiographs, AP, lateral and sunrise views. CPT 52938 HISTORY: fall COMPARISON: No prior studies are available for comparison. FINDINGS: RIGHT KNEE: There is moderate degenerative arthrosis of the knee and patellofemoral joint. There are ossified bodies in the popliteal fossa which could be fabellas. Ossification in chronic popliteal cyst also considered. There is no fracture or malalignment. LEFT KNEE: There is chronic degenerative arthrosis of the knee joint and patellofemoral joint. There is no fracture or malalignment. Soft tissues are unremarkable. IMPRESSION: Chronic changes as described. There is no acute abnormality.. Transcribed By: CO Dictated By: EVANGELISTA AKERS MD Electronically Authenticated By: EVANGELISTA AKERS MD Signed Date/Time: 03/25/172044 DD/ 44 TD/TT: 03/25/172044 - Differential Diagnosis arthritis, knee contusion, lumbar strain Critical care attestation.: If time is entered above; I have spent that time in minutes in the direct care of this critically ill patient, excluding procedure time. ED Disposition Clinical Impression: Arthralgia, Back pain Disposition: TO HOME OR SELFCARE Is pt being admited?: No Does the pt Need Aspirin: No Condition: Stable Instructions: Low Back Strain (ED), Arthralgia (ED) Additional Instructions: Return to the emergency department immediately should you develop worsening symptoms, fever, inability to tolerate food or liquid or any other concerns. Prescriptions: HYDROcodone/APAP 5-325 [[place] 5/325] 1 - 2 each PO Q6HR PRN #14 tablet PRN Reason: Pain Naproxen [Naprosyn] 500 mg PO Q12H PRN #20 tablet PRN Reason: Pain Referrals: NATALIA COLLAZO MD [Primary Care Provider] - 3-5 Days JORGE LUIS MELENDEZ MD [Staff Physician] - 3-5 Days (Dr. Melendez is an orthopedic surgeon. Please follow up with him for further evaluation) Time of Disposition: 08:19
[2017-03-26 08:53] VITALS: BP 124/78
--- NOTE | 2017-03-26 08:58 | XRay Report ---
FINAL REPORT EXAM: XRAY LUMBAR LIMITED HISTORY: lumbar pain from fall TECHNIQUE: Three views lumbar spine PRIORS: None. FINDINGS: Mild leftward convexity of the lumbar spine is centered at L3. Diffuse anterior bridging endplate spondylosis. Diffuse mild intervertebral disc space narrowing. Vertebral body heights are otherwise preserved. No listhesis, spondylolysis or other fracture. IMPRESSION: No definite acute lumbar spine findings. Consider additional imaging including CT/MRI for worsening/persistent symptoms.
== END 2017-03-26 08:53 | disposition home or self-care (01) ==
LOC: ED 18:51
DX: M25.561 Pain in right knee (principal); M54.9 Dorsalgia, unspecified
CPT/HCPCS: 36415; 72100; 73560; 80048; 85007; 85025; 96360; 99284; J7030

== ENCOUNTER 2017-10-14 12:21 | Emergency (ER) | payer OTHER ==
[2017-10-14] MEDS ORDERED: NACL 0.9% 1000 ML 1,000 ML ONE (12:35)
[2017-10-14] MEDS ORDERED: NACL 0.9% 1000 ML 1,000 ML IV ONE ×2 (12:42)
--- NOTE | 2017-10-14 12:44 | Emergency Department Report ---
ED Dizziness HPI - General Chief Complaint: Dizziness Stated Complaint: LOW BP Time Seen by Provider: 10/14/17 12:39 Source: patient, EMS Mode of arrival: Stretcher Limitations: No Limitations - History of Present Illness Initial Comments: She was a 62-year-old male has a history of homelessness who states he 's been walking around in the sun quite a bit for the last 2 days and started becoming dizzy today. Patient was found by EMS attempted blood pressure 88/60. Patient states is worse when he stands. Patient denies any vomiting diarrhea or chest pain but does state he has some dry mouth. - Related Data Previous Rx's Medication Instructions Recorded Last Taken Type Atenolol [Tenormin] 25 mg PO QDAY #30 tablet 03/24/17 Unknown Rx Folic Acid [Folvite] 1 mg PO DAILY #30 tablet 03/24/17 Unknown Rx Multivitamin Tab [Multiple Vitamin 1 each PO DAILY #30 tablet 03/24/17 Unknown Rx TAB (Theragran)] Thiamine [Vitamin B-1] 100 mg PO QDAY #30 tablet 03/24/17 Unknown Rx HYDROcodone/APAP 5-325 [[place] 1 - 2 each PO Q6HR PRN #14 tablet 03/26/17 Unknown Rx 5/325] Naproxen [Naprosyn] 500 mg PO Q12H PRN #20 tablet 03/26/17 Unknown Rx Allergies Allergy/AdvReac Type Severity Reaction Status Date / Time olanzapine [From Zyprexa] Allergy Nausea Verified 07/01/15 10:54 ED Review of Systems ROS: Stated complaint: LOW BP Other details as noted in HPI Comment: All other systems reviewed and negative ED Past Medical Hx - Past Medical History Hx Hypertension: Yes Hx Seizures: Yes Hx Psychiatric Treatment: Yes (anxiety psychosis) Additional medical history: Other Hx is unclear - Surgical History Additional Surgical History: R knee surgery, left lung injury - Social History Smoking Status: Former Smoker Substance Use Type: Prescribed - Medications Home Medications: Home Medications Medication Instructions Recorded Confirmed Last Taken Type Atenolol [Tenormin] 25 mg PO QDAY #30 tablet 03/24/17 Unknown Rx Folic Acid [Folvite] 1 mg PO DAILY #30 tablet 03/24/17 Unknown Rx Multivitamin Tab [Multiple Vitamin 1 each PO DAILY #30 tablet 03/24/17 Unknown Rx TAB (Theragran)] Thiamine [Vitamin B-1] 100 mg PO QDAY #30 tablet 03/24/17 Unknown Rx HYDROcodone/APAP 5-325 [[place] 1 - 2 each PO Q6HR PRN #14 tablet 03/26/17 Unknown Rx 5/325] Naproxen [Naprosyn] 500 mg PO Q12H PRN #20 tablet 03/26/17 Unknown Rx ED Physical Exam - General Limitations: No Limitations General appearance: alert, in no apparent distress - Head Head exam: Present: atraumatic, normocephalic - Eye Eye exam: Present: normal appearance - ENT ENT exam: Present: mucous membranes dry - Neck Neck exam: Present: normal inspection - Respiratory Respiratory exam: Present: normal lung sounds bilaterally. Absent: respiratory distress, wheezes, rales, rhonchi - Cardiovascular Cardiovascular Exam: Present: regular rate, normal rhythm. Absent: systolic murmur, diastolic murmur, rubs, gallop - GI/Abdominal GI/Abdominal exam: Present: soft, normal bowel sounds. Absent: distended, tenderness, guarding, rebound - Rectal Rectal exam: Present: deferred - Extremities Exam Extremities exam: Present: normal inspection - Back Exam Back exam: Present: normal inspection - Neurological Exam Neurological exam: Present: alert, oriented X3 - Psychiatric Psychiatric exam: Present: normal affect, normal mood - Skin Skin exam: Present: warm, dry, intact, normal color. Absent: rash ED Course Vital Signs 10/14/17 10/14/17 10/14/17 12:24 13:46 15:03 Temperature 98 F 98.2 F Pulse Rate 92 H 104 H Respiratory 18 18 23 Rate Blood Pressure 108/64 Blood Pressure 122/79 [Left] O2 Sat by Pulse 96 96 95 Oximetry 10/14/17 18:52 Temperature Pulse Rate 79 Respiratory 18 Rate Blood Pressure Blood Pressure 122/79 [Left] O2 Sat by Pulse 100 Oximetry ED Medical Decision Making - Lab Data Result diagrams: 10/14/17 12:48 10/14/17 12:48 - Medical Decision Making IV fluids were ordered. For greater the time the patient's IV infusion rate was quite slow secondary to the IV had this was replaced and the patient received adequate bolus. Patient is feeling much improved after IV fluids is able to stand without dizziness blood pressure is improved patient be discharged home. Critical care attestation.: If time is entered above; I have spent that time in minutes in the direct care of this critically ill patient, excluding procedure time. ED Disposition Clinical Impression: Dehydration Hypotension Qualifiers: Hypotension type: hypotension due to hypovolemia Qualified Code(s): I95.89 - Other hypotension; E86.1 - Hypovolemia Disposition: DC-01 TO HOME OR SELFCARE Is pt being admited?: No Does the pt Need Aspirin: No Condition: Stable
[2017-10-14 13:13] LABS: Hematocrit 38.7 % (35.5-45.6); Hemoglobin 13.5 gm/dl (11.8-15.2); Mean Corpuscular HGB Conc 35 % (32-34); Mean Corpuscular Hemoglobin 37 pg (28-32); Mean Corpuscular Volume 107 fl (84-94); Platelet Count 253 K/mm3 (140-440); Red Blood Count 3.63 M/mm3 (3.65-5.03); Red Cell Distribution Width 14.4 % (13.2-15.2)
[2017-10-14 14:14] LABS: BUN/Creatinine Ratio 13; Blood Urea Nitrogen 9 mg/dL (9-20); Hemolysis Index 16
[2017-10-14 14:43] LABS: Total Cells Counted 100
[2017-10-14 14:44] LABS: Anisocytosis 1+; Basophils % (Manual) 0 % (0.0-1.8); Eosinophils % (Manual) 0 % (0.0-4.3); Macrocytosis 1+; Platelet Estimate Consistent w Auto
[2017-10-14 19:51] VITALS: BP 149/82
== END 2017-10-14 19:42 | disposition home or self-care (01) ==
LOC: ED 12:21
DX: E86.0 Dehydration (principal); I95.89 Other hypotension; E86.1 Hypovolemia; I10 Essential (primary) hypertension; F41.9 Anxiety disorder, unspecified; F23 Brief psychotic disorder; Z88.8 Allergy status to other drugs, medicaments and biological substances; Z87.891 Personal history of nicotine dependence
CPT/HCPCS: 36415; 80048; 85007; 85025; 96360; 96361; 99284; G0480; J7030; 80320

== ENCOUNTER 2017-12-22 19:36 | Emergency (ER) | payer OTHER ==
[2017-12-22] MEDS ORDERED: ATIVAN IV ONE (22:06)
[2017-12-22] MEDS ORDERED: NACL 0.9% 1000 ML 1,000 ML IV ONE (22:06)
--- NOTE | 2017-12-22 22:12 | Emergency Department Report ---
HPI - General Chief Complaint: Seizure Time Seen by Provider: 12/22/17 21:19 - HPI HPI: Room 18 The patient is 62-year-old male presenting with chief complaint seizure. The patient states she has a history of seizure disorder has not had his Dilantin in one month. Patient states she had a seizure today and [place] Bystanders found the patient insisted with EMS. Patient now only complains of chronic pain from her previously injured left wrist. The patient states he is homeless Location: [facility] Duration: [See above] Quality: Unknown Severity: Moderate Modifying factors: [see above] Context: [see above] Mode of transportation: [not driving] ED Past Medical Hx - Past Medical History Hx Hypertension: Yes Hx Seizures: Yes Hx Psychiatric Treatment: Yes (anxiety psychosis) Additional medical history: Other Hx is unclear - Surgical History Additional Surgical History: R knee surgery, left lung injury - Family History Family history: no significant - Social History Smoking Status: Never Smoker Substance Use Type: None (denies illicit drug use and states he hasn't consumed alcohol heavily for 10 years) - Medications Home Medications: Home Medications Medication Instructions Recorded Confirmed Last Taken Type Atenolol [Tenormin] 25 mg PO QDAY #30 tablet 03/24/17 Unknown Rx Folic Acid [Folvite] 1 mg PO DAILY #30 tablet 03/24/17 Unknown Rx Multivitamin Tab [Multiple Vitamin 1 each PO DAILY #30 tablet 03/24/17 Unknown Rx TAB (Theragran)] Thiamine [Vitamin B-1] 100 mg PO QDAY #30 tablet 03/24/17 Unknown Rx HYDROcodone/APAP 5-325 [[place] 1 - 2 each PO Q6HR PRN #14 tablet 03/26/17 Unknown Rx 5/325] Naproxen [Naprosyn] 500 mg PO Q12H PRN #20 tablet 03/26/17 Unknown Rx ED Review of Systems ROS: Stated complaint: HEADACHE, LEFT WRIST PAIN, RT KNEE PAIN Other details as noted in HPI Constitutional: no symptoms reported Eyes: denies: eye pain ENT: denies: throat pain Respiratory: no symptoms reported Cardiovascular: denies: chest pain Endocrine: no symptoms reported Gastrointestinal: denies: abdominal pain Genitourinary: denies: dysuria Musculoskeletal: arthralgia, myalgia Neurological: denies: headache Physical Exam - Physical Exam Vital Signs: Vital Signs 12/22/17 12/22/17 19:50 20:01 Temperature 97.9 F 97.8 F Pulse Rate 122 H 112 H Respiratory 24 24 Rate Blood Pressure 115/86 115/86 O2 Sat by Pulse 97 96 Oximetry Physical Exam: GENERAL: The patient is well-developed well-nourished male sitting on stretcher not appearing to be in acute distress. [] HEENT: Normocephalic. Atraumatic. Extraocular motions are intact. Patient has moist mucous membranes. NECK: Supple. Trachea midline CHEST/LUNGS: Clear to auscultation. There is no respiratory distress noted. HEART/CARDIOVASCULAR: Regular. There is no tachycardia. There is no gallop rub or murmur. ABDOMEN: Abdomen is soft, nontender. Patient has normal bowel sounds. There is no abdominal distention. SKIN: There is no rash. There is no edema. There is no diaphoresis. NEURO: The patient is awake, alert, and oriented. The patient is cooperative. The patient has no focal neurologic deficits. The patient has normal speech. Cranial nerves II through XII grossly intact, no drift MUSCULOSKELETAL: There is no evidence of acute injury. ED Course Vital Signs 12/22/17 12/22/17 19:50 20:01 Temperature 97.9 F 97.8 F Pulse Rate 122 H 112 H Respiratory 24 24 Rate Blood Pressure 115/86 115/86 O2 Sat by Pulse 97 96 Oximetry ED Medical Decision Making - Differential Diagnosis seizure disorder Critical care attestation.: If time is entered above; I have spent that time in minutes in the direct care of this critically ill patient, excluding procedure time. ED Disposition Clinical Impression: Seizures, Homelessness Condition: Stable
[2017-12-22 22:57] LABS: Hematocrit 39.3 % (35.5-45.6); Hemoglobin 13.8 gm/dl (11.8-15.2); Mean Corpuscular HGB Conc 35 % (32-34); Mean Corpuscular Hemoglobin 37 pg (28-32); Mean Corpuscular Volume 106 fl (84-94); Platelet Count 172 K/mm3 (140-440); Red Cell Distribution Width 16.2 % (13.2-15.2)
[2017-12-22 23:13] LABS: Alanine Aminotransferase 53 units/L (7-56); Albumin 3.5 g/dL (3.9-5); BUN/Creatinine Ratio 13; Blood Urea Nitrogen 10 mg/dL (9-20); Calcium 8.4 mg/dL (8.4-10.2); Hemolysis Index 3
[2017-12-22] MEDS ORDERED: CEREBYX 1,000 MG.PE in NACL 0.9% 100 ML IV ONE (23:17)
[2017-12-22 23:41] LABS: Basophils % (Manual) 0 % (0.0-1.8); Platelet Estimate Consistent w Auto; RBC Morphology Normal; Total Cells Counted 100
[2017-12-23 13:19] VITALS: BP 123/72
== END 2017-12-23 10:20 | disposition home or self-care (01) ==
LOC: ED 19:36
DX: R56.9 Unspecified convulsions (principal); F29 Unspecified psychosis not due to a substance or known physiological condition; F41.9 Anxiety disorder, unspecified; I10 Essential (primary) hypertension; Z59.0 Homelessness; Z88.8 Allergy status to other drugs, medicaments and biological substances
CPT/HCPCS: 36415; 80053; 80185; 85007; 85025; 96365; 96375; 99284; J2060; J7030; Q2009

== ENCOUNTER 2017-12-23 12:03 | Emergency (ER) | payer SELFPAY ==
[2017-12-23 12:20] VITALS: BP 123/104
== END 2017-12-23 12:30 | disposition left against medical advice (07) ==
LOC: ED 12:03
DX: Z00.8 Encounter for other general examination (principal); Z53.21 Procedure and treatment not carried out due to patient leaving prior to being seen by health care provider

== ENCOUNTER 2017-12-26 01:04 | Inpatient (IN) | payer OTHER ==
[2017-12-26] MEDS ORDERED: ASPIRIN PO ONE (01:30)
[2017-12-26 02:00] LABS: Hematocrit 44.3 % (35.5-45.6); Hemoglobin 15.4 gm/dl (11.8-15.2); Mean Corpuscular HGB Conc 35 % (32-34); Mean Corpuscular Hemoglobin 37 pg (28-32); Mean Corpuscular Volume 106 fl (84-94); Platelet Count 204 K/mm3 (140-440); Red Blood Count 4.17 M/mm3 (3.65-5.03); Red Cell Distribution Width 15.8 % (13.2-15.2)
[2017-12-26 02:15] LABS: BUN/Creatinine Ratio 8; Blood Urea Nitrogen 4 mg/dL (9-20); Calcium 8.7 mg/dL (8.4-10.2); Hemolysis Index 140
[2017-12-26 02:49] LABS: Band Neutrophils # (Manual) 0.3 K/mm3; Eosinophils % (Manual) 0 % (0.0-4.3); Total Cells Counted 100
[2017-12-26 02:50] LABS: Large Platelets Few; RBC Morphology Normal
--- NOTE | 2017-12-26 06:12 | Emergency Department Report ---
ED Chest Pain HPI - General Chief Complaint: Chest Pain Stated Complaint: CHEST PAIN Time Seen by Provider: 12/26/17 06:11 Source: patient, EMS Mode of arrival: Stretcher Limitations: No Limitations - History of Present Illness Initial Comments: Patient is homeless. He is an alcoholic and he said he fell and hit his head. Patient is a poor historian and attempt to get a good history from him was unsuccessful. MD Complaint: chest pain -: Sudden Onset: other (Alcoholic) Pain Location: substernal Pain Radiation: none Severity: mild Severity scale (0 -10): 2 Quality: aching Consistency: constant Improves With: nothing Worsens With: nothing Treatments Prior to Arrival: none Aspirin use within the Past 7 Days: (0) No - Related Data On Oral Contraceptives: No Previous Rx's Medication Instructions Recorded Last Taken Type Atenolol [Tenormin] 25 mg PO QDAY #30 tablet 03/24/17 Unknown Rx Folic Acid [Folvite] 1 mg PO DAILY #30 tablet 03/24/17 Unknown Rx Multivitamin Tab [Multiple Vitamin 1 each PO DAILY #30 tablet 03/24/17 Unknown Rx TAB (Theragran)] Thiamine [Vitamin B-1] 100 mg PO QDAY #30 tablet 03/24/17 Unknown Rx HYDROcodone/APAP 5-325 [[place] 1 - 2 each PO Q6HR PRN #14 tablet 03/26/17 Unknown Rx 5/325] Naproxen [Naprosyn] 500 mg PO Q12H PRN #20 tablet 03/26/17 Unknown Rx Phenytoin Sodium Extended 300 mg PO QHS #90 capsule 12/23/17 Unknown Rx [Dilantin] Allergies Allergy/AdvReac Type Severity Reaction Status Date / Time olanzapine [From Zyprexa] Allergy Nausea Verified 12/23/17 12:17 Heart Score - HEART Score History: Slightly suspicious EKG: Non-specific Age: 45-65 Risk factors: No known risk factors Troponin: < normal limit HEART Score: 2 - Critical Actions Critical Actions: 0-3 pts:0.9-1.7%risk of adverse cardiac event.Candidate for discharge ED Review of Systems ROS: Stated complaint: CHEST PAIN Other details as noted in HPI Comment: All other systems reviewed and negative Constitutional: denies: chills, fever Eyes: denies: eye pain, eye discharge, vision change ENT: denies: ear pain, throat pain Respiratory: denies: cough, shortness of breath, wheezing Cardiovascular: denies: chest pain, palpitations Endocrine: no symptoms reported Gastrointestinal: denies: abdominal pain, nausea, diarrhea Genitourinary: denies: urgency, dysuria Musculoskeletal: denies: back pain, joint swelling, arthralgia Skin: denies: rash, lesions Neurological: denies: headache, weakness, paresthesias Psychiatric: denies: anxiety, depression Hematological/Lymphatic: denies: easy bleeding, easy bruising ED Past Medical Hx - Past Medical History Hx Hypertension: Yes Hx Seizures: Yes Hx Psychiatric Treatment: Yes (anxiety psychosis) Additional medical history: Other Hx is unclear - Surgical History Additional Surgical History: R knee surgery, left lung injury - Social History Smoking Status: Current Every Day Smoker Substance Use Type: None - Medications Home Medications: Home Medications Medication Instructions Recorded Confirmed Last Taken Type Atenolol [Tenormin] 25 mg PO QDAY #30 tablet 03/24/17 Unknown Rx Folic Acid [Folvite] 1 mg PO DAILY #30 tablet 03/24/17 Unknown Rx Multivitamin Tab [Multiple Vitamin 1 each PO DAILY #30 tablet 03/24/17 Unknown Rx TAB (Theragran)] Thiamine [Vitamin B-1] 100 mg PO QDAY #30 tablet 03/24/17 Unknown Rx HYDROcodone/APAP 5-325 [[place] 1 - 2 each PO Q6HR PRN #14 tablet 03/26/17 Unknown Rx 5/325] Naproxen [Naprosyn] 500 mg PO Q12H PRN #20 tablet 03/26/17 Unknown Rx Phenytoin Sodium Extended 300 mg PO QHS #90 capsule 12/23/17 Unknown Rx [Dilantin] ED Physical Exam - General Limitations: No Limitations General appearance: alert, in no apparent distress - Head Head exam: Present: atraumatic, normocephalic - Eye Eye exam: Present: normal appearance - ENT ENT exam: Present: normal exam, mucous membranes moist, other (Poor dentition.) - Neck Neck exam: Present: normal inspection - Respiratory Respiratory exam: Present: normal lung sounds bilaterally. Absent: respiratory distress - Cardiovascular Cardiovascular Exam: Present: regular rate, normal rhythm. Absent: systolic murmur, diastolic murmur, rubs, gallop - GI/Abdominal GI/Abdominal exam: Present: soft, normal bowel sounds - Rectal Rectal exam: Present: deferred - Extremities Exam Extremities exam: Present: normal inspection, full ROM - Back Exam Back exam: Present: normal inspection - Neurological Exam Neurological exam: Present: alert, oriented X3 - Psychiatric Psychiatric exam: Present: normal affect, normal mood - Skin Skin exam: Present: warm, dry, intact, normal color. Absent: rash ED Course Vital Signs 12/26/17 01:31 Temperature 98 F Pulse Rate 98 H Respiratory 18 Rate Blood Pressure 142/79 O2 Sat by Pulse 97 Oximetry - Consultations Consultation #1: 12/26/17 07:58 [employer] Operator hospitalist nurse transition Dr. Sood. She wants patient to be admitted to Dr. Gabo So for further management. HEBER score - Heber Score Age > 65: (0) No Aspirin use within the Past 7 Days: (0) No 3 or more CAD Risk Factors: (0) No 2 or more Angina events in past 24 hrs: (0) No Known CAD with more than 50% Stenosis: (0) No Elevated Cardiac Markers: (0) No ST Deviation Greater than 0.5mm: (0) No HEBER Score: 0 ED Medical Decision Making - Lab Data Result diagrams: 12/26/17 01:32 12/26/17 01:32 Lab Results 12/26/17 12/26/17 12/26/17 Range/Units 01:32 01:32 04:34 WBC 6.4 (4.5-11.0) K/mm3 RBC 4.17 (3.65-5.03) M/mm3 Hgb 15.4 H (11.8-15.2) gm/dl Hct 44.3 (35.5-45.6) % MCV 106 H (84-94) fl MCH 37 H (28-32) pg MCHC 35 H (32-34) % RDW 15.8 H (13.2-15.2) % Plt Count 204 (140-440) K/mm3 Hall % (Auto) Teaching Specialists Add Manual Diff Complete Total Counted 100 Seg Neuts % (Manual) 63.0 (40.0-70.0) % Band Neutrophils % 5.0 % Lymphocytes % (Manual) 13.0 L (13.4-35.0) % Reactive Lymphs % (Man) 0 % Monocytes % (Manual) 17.0 H (0.0-7.3) % Eosinophils % (Manual) 0 (0.0-4.3) % Basophils % (Manual) 2.0 H (0.0-1.8) % Metamyelocytes % 0 % Myelocytes % 0 % Promyelocytes % 0 % Blast Cells % 0 % Nucleated RBC % Not Reportable Seg Neutrophils # Man 4.0 (1.8-7.7) K/mm3 Band Neutrophils # 0.3 K/mm3 Lymphocytes # (Manual) 0.8 L (1.2-5.4) K/mm3 Abs React Lymphs (Man) 0.0 K/mm3 Monocytes # (Manual) 1.1 H (0.0-0.8) K/mm3 Eosinophils # (Manual) 0.0 (0.0-0.4) K/mm3 Basophils # (Manual) 0.1 (0.0-0.1) K/mm3 Metamyelocytes # 0.0 K/mm3 Myelocytes # 0.0 K/mm3 Promyelocytes # 0.0 K/mm3 Blast Cells # 0.0 K/mm3 WBC Morphology Not Reportable Hypersegmented Neuts Not Reportable Hyposegmented Neuts Not Reportable Hypogranular Neuts Not Reportable Smudge Cells Not Reportable Toxic Granulation Not Reportable Toxic Vacuolation Not Reportable Dohle Bodies Not Reportable Pelger-Huet Anomaly Not Reportable Lana Rods Not Reportable Platelet Estimate Appears normal Clumped Platelets Not Reportable Plt Clumps, EDTA Not Reportable Large Platelets Few Giant Platelets Not Reportable Platelet Satelliting Not Reportable Plt Morphology Comment Not Reportable RBC Morphology Normal Dimorphic RBCs Not Reportable Polychromasia Not Reportable Hypochromasia Not Reportable Poikilocytosis Not Reportable Anisocytosis Not Reportable Microcytosis Not Reportable Macrocytosis Not Reportable Spherocytes Not Reportable Pappenheimer Bodies Not Reportable Sickle Cells Not Reportable Target Cells Not Reportable Tear Drop Cells Not Reportable Ovalocytes Not Reportable Helmet Cells Not Reportable [place] Bodies Not Reportable [place] Rings Not Reportable [place] Cells Not Reportable Bite Cells Not Reportable Crenated Cell Not Reportable Elliptocytes Not Reportable Acanthocytes (Spur) Not Reportable Rouleaux Not Reportable Hemoglobin C Crystals Not Reportable Schistocytes Not Reportable Malaria parasites Not Reportable Shahzad Bodies Not Reportable Hem Pathologist Commnt No Sodium 123 L D (137-145) mmol/L Potassium 4.7 (3.6-5.0) mmol/L Chloride 83.8 L (98-107) mmol/L Carbon Dioxide 25 (22-30) mmol/L Anion Gap 19 mmol/L BUN 4 L (9-20) mg/dL Creatinine 0.5 L (0.8-1.5) mg/dL Estimated GFR > 60 ml/min BUN/Creatinine Ratio 8 % Glucose 111 H (75-100) mg/dL Calcium 8.7 (8.4-10.2) mg/dL Troponin T < 0.010 < 0.010 (0.00-0.029) ng/mL - EKG Data -: EKG Interpreted by Me Rate: normal (96) - EKG Data When compared to previous EKG there are: previous EKG unavailable Interpretation: nonspecific ST-T wave pete 12/26/17 06:31 Atrial Fibrillation, Multiple Artifacts, No STEMI. - Radiology Data Radiology results: report reviewed, image reviewed - Medical Decision Making Atypical Chest pain. Alcohol Abuse. Patient will be admitted to the hospital for management of his hyponatremia and alcohol withdrawal. Critical Care Time: Yes Critical care time in (mins) excluding proc time.: 40 Critical care attestation.: If time is entered above; I have spent that time in minutes in the direct care of this critically ill patient, excluding procedure time. ED Disposition Clinical Impression: Acute hyponatremia, Alcohol abuse, Homelessness Alcohol withdrawal Qualifiers: Complication of substance-induced condition: uncomplicated Qualified Code(s): F10.230 - Alcohol dependence with withdrawal, uncomplicated Falls Qualifiers: Encounter type: initial encounter Qualified Code(s): W19.XXXA - Unspecified fall, initial encounter Disposition: OP ADMIT IP TO THIS HOSP Is pt being admited?: Yes Does the pt Need Aspirin: No Condition: Stable Referrals: PRIMARY CARE,MD [Primary Care Provider] - 3-5 Days Time of Disposition: 07:56
[2017-12-26] MEDS ORDERED: VITAMIN B-1 100 MG, FOLVITE 1 MG, INFUVITE 10 ML in NACL 0.9% 1000 ML 1,000 ML IV ONE (06:25)
[2017-12-26] MEDS ORDERED: NACL 0.9% 1000 ML 1,000 ML IV ONE (06:26)
--- NOTE | 2017-12-26 06:58 | Cat Scan Report ---
FINAL REPORT EXAM: CT HEAD/BRAIN WO CON HISTORY: Headache TECHNIQUE: CT imaging acquired through the head without intravenous contrast. Transaxial reformations are provided. PRIORS: 03/17/2017 FINDINGS: The ventricles, cisterns and sulci are within normal limits. No intraparenchymal or extra-axial mass, hemorrhage, or mass effect. Contreras and white-matter differentiation is within normal limits for patient age. Normal spherical shape of the globes. No significant abnormality involving the imaged portions of the paranasal sinuses and mastoid air cells. No skull or facial fracture visualized. IMPRESSION: No acute intracranial abnormality. Consider additional imaging for worsening/persistent symptoms.
--- NOTE | 2017-12-26 07:09 | XRay Report ---
FINAL REPORT EXAM: XR CHEST 1V AP HISTORY: Chest pain TECHNIQUE: AP portable view(s) of the chest obtained. PRIORS: None. FINDINGS: No mediastinal shift. Cardiac silhouette is not enlarged. No pneumothorax, effusion, or focal pulmonary opacity identified. No acute skeletal findings. IMPRESSION: No acute pulmonary finding identified.
[2017-12-26] MEDS ORDERED: ATIVAN IV ONE (07:10)
[2017-12-26 07:22] LABS: INR 0.9 (0.87-1.13)
[2017-12-26 07:23] LABS: Partial Thromboplastin Time 25.8 Sec. (24.2-36.6)
[2017-12-26 07:28] LABS: Albumin 3.6 g/dL (3.9-5); Bilirubin,Direct 0.3 mg/dL (0-0.2)
--- NOTE | 2017-12-26 10:11 | History and Physical Report ---
History of Present Illness Date of examination: 12/26/17 Date of admission: 12/26/17 07:56 Chief complaint: fall History of present illness: This is a 62-year-old male who presents with chief complaint status post fall. Patient reportedly from the ER record suffered a fall and hit his head. Patient is a poor historian and cannot give a complete events of why he is in the hospital. Patient reports that he has had some nausea and vomiting 4 in the emergency room waiting area. He denies any hematemesis. Patient has a history of EtOH abuse and is homeless. The patient had a recent ER visit on for seizure. The patient reportedly takes Dilantin for seizure disorder. No reports of seizure activity with this admission. However, patient again is a poor historian. No reports of fever chills. No cough, or cold-like symptoms. Past History Past Medical History: seizures Past Surgical History: No surgical history Social history: alcohol abuse Family history: no significant family history Medications and Allergies Allergies Allergy/AdvReac Type Severity Reaction Status Date / Time olanzapine [From Zyprexa] Allergy Nausea Verified 12/23/17 12:17 Home Medications Medication Instructions Recorded Confirmed Last Taken Type Atenolol [Tenormin] 25 mg PO QDAY #30 tablet 03/24/17 Unknown Rx Folic Acid [Folvite] 1 mg PO DAILY #30 tablet 03/24/17 Unknown Rx Multivitamin Tab [Multiple Vitamin 1 each PO DAILY #30 tablet 03/24/17 Unknown Rx TAB (Theragran)] Thiamine [Vitamin B-1] 100 mg PO QDAY #30 tablet 03/24/17 Unknown Rx HYDROcodone/APAP 5-325 [[place] 1 - 2 each PO Q6HR PRN #14 tablet 03/26/17 Unknown Rx 5/325] Naproxen [Naprosyn] 500 mg PO Q12H PRN #20 tablet 03/26/17 Unknown Rx Phenytoin Sodium Extended 300 mg PO QHS #90 capsule 12/23/17 Unknown Rx [Dilantin] Active Meds: Active Medications Thiamine HCl 100 mg/ Folic Acid 1 mg/ Multivitamins/Minerals 10 ml/ Sodium Chloride 1,011.2 mls @ 250 mls/hr IV ONCE ONE Stop: 12/26/17 10:27 Review of Systems All systems: negative Exam - Constitutional Vitals: Temp Pulse Resp BP Pulse Ox 98 F 98 H 18 142/79 97 12/26/17 01:31 12/26/17 01:31 12/26/17 01:31 12/26/17 01:31 12/26/17 01:31 General appearance: Present: no acute distress, well-nourished - EENT Eyes: Present: PERRL ENT: hearing intact, clear oral mucosa - Neck Neck: Present: supple, normal ROM - Respiratory Respiratory effort: normal Respiratory: bilateral: CTA - Cardiovascular Heart Sounds: Present: S1 & S2. Absent: rub, click - Extremities Extremities: pulses symmetrical, No edema Peripheral Pulses: within normal limits - Abdominal General gastrointestinal: Present: soft, non-tender, non-distended, normal bowel sounds Male genitourinary: Present: normal - Integumentary Integumentary: Present: clear, warm, dry - Musculoskeletal Musculoskeletal: gait normal, strength equal bilaterally - Psychiatric Psychiatric: appropriate mood/affect, intact judgment & insight - Neurologic Neurologic: CNII-XII intact, moves all extremities Results - Labs CBC & Chem 7: 12/26/17 01:32 12/26/17 01:32 Labs: Laboratory Last Values WBC 6.4 K/mm3 (4.5-11.0) 12/26/17 01:32 RBC 4.17 M/mm3 (3.65-5.03) 12/26/17 01:32 Hgb 15.4 gm/dl (11.8-15.2) H 12/26/17 01:32 Hct 44.3 % (35.5-45.6) 12/26/17 01:32 MCV 106 fl (84-94) H 12/26/17 01:32 MCH 37 pg (28-32) H 12/26/17 01:32 MCHC 35 % (32-34) H 12/26/17 01:32 RDW 15.8 % (13.2-15.2) H 12/26/17 01:32 Plt Count 204 K/mm3 (140-440) 12/26/17 01:32 Page % (Auto) Clinical Rehab Specialist 12/26/17 01:32 Add Manual Diff Complete 12/26/17 01:32 Total Counted 100 12/26/17 01:32 Seg Neuts % (Manual) 63.0 % (40.0-70.0) 12/26/17 01:32 Band Neutrophils % 5.0 % 12/26/17 01:32 Lymphocytes % (Manual) 13.0 % (13.4-35.0) L 12/26/17 01:32 Reactive Lymphs % (Man) 0 % 12/26/17 01:32 Monocytes % (Manual) 17.0 % (0.0-7.3) H 12/26/17 01:32 Eosinophils % (Manual) 0 % (0.0-4.3) 12/26/17 01:32 Basophils % (Manual) 2.0 % (0.0-1.8) H 12/26/17 01:32 Metamyelocytes % 0 % 12/26/17 01:32 Myelocytes % 0 % 12/26/17 01:32 Promyelocytes % 0 % 12/26/17 01:32 Blast Cells % 0 % 12/26/17 01:32 Nucleated RBC % Not Reportable 12/26/17 01:32 Seg Neutrophils # Man 4.0 K/mm3 (1.8-7.7) 12/26/17 01:32 Band Neutrophils # 0.3 K/mm3 12/26/17 01:32 Lymphocytes # (Manual) 0.8 K/mm3 (1.2-5.4) L 12/26/17 01:32 Abs React Lymphs (Man) 0.0 K/mm3 12/26/17 01:32 Monocytes # (Manual) 1.1 K/mm3 (0.0-0.8) H 12/26/17 01:32 Eosinophils # (Manual) 0.0 K/mm3 (0.0-0.4) 12/26/17 01:32 Basophils # (Manual) 0.1 K/mm3 (0.0-0.1) 12/26/17 01:32 Metamyelocytes # 0.0 K/mm3 12/26/17 01:32 Myelocytes # 0.0 K/mm3 12/26/17 01:32 Promyelocytes # 0.0 K/mm3 12/26/17 01:32 Blast Cells # 0.0 K/mm3 12/26/17 01:32 WBC Morphology Not Reportable 12/26/17 01:32 Hypersegmented Neuts Not Reportable 12/26/17 01:32 Hyposegmented Neuts Not Reportable 12/26/17 01:32 Hypogranular Neuts Not Reportable 12/26/17 01:32 Smudge Cells Not Reportable 12/26/17 01:32 Toxic Granulation Not Reportable 12/26/17 01:32 Toxic Vacuolation Not Reportable 12/26/17 01:32 Dohle Bodies Not Reportable 12/26/17 01:32 Pelger-Huet Anomaly Not Reportable 12/26/17 01:32 Lana Rods Not Reportable 12/26/17 01:32 Platelet Estimate Appears normal 12/26/17 01:32 Clumped Platelets Not Reportable 12/26/17 01:32 Plt Clumps, EDTA Not Reportable 12/26/17 01:32 Large Platelets Few 12/26/17 01:32 Giant Platelets Not Reportable 12/26/17 01:32 Platelet Satelliting Not Reportable 12/26/17 01:32 Plt Morphology Comment Not Reportable 12/26/17 01:32 RBC Morphology Normal 12/26/17 01:32 Dimorphic RBCs Not Reportable 12/26/17 01:32 Polychromasia Not Reportable 12/26/17 01:32 Hypochromasia Not Reportable 12/26/17 01:32 Poikilocytosis Not Reportable 12/26/17 01:32 Anisocytosis Not Reportable 12/26/17 01:32 Microcytosis Not Reportable 12/26/17 01:32 Macrocytosis Not Reportable 12/26/17 01:32 Spherocytes Not Reportable 12/26/17 01:32 Pappenheimer Bodies Not Reportable 12/26/17 01:32 Sickle Cells Not Reportable 12/26/17 01:32 Target Cells Not Reportable 12/26/17 01:32 Tear Drop Cells Not Reportable 12/26/17 01:32 Ovalocytes Not Reportable 12/26/17 01:32 Helmet Cells Not Reportable 12/26/17 01:32 [place]fon[place] Bodies Not Reportable 12/26/17 01:32 [place] Rings Not Reportable 12/26/17 01:32 [place] Cells Not Reportable 12/26/17 01:32 Bite Cells Not Reportable 12/26/17 01:32 Crenated Cell Not Reportable 12/26/17 01:32 Elliptocytes Not Reportable 12/26/17 01:32 Acanthocytes (Spur) Not Reportable 12/26/17 01:32 Rouleaux Not Reportable 12/26/17 01:32 Hemoglobin C Crystals Not Reportable 12/26/17 01:32 Schistocytes Not Reportable 12/26/17 01:32 Malaria parasites Not Reportable 12/26/17 01:32 Shahzad Bodies Not Reportable 12/26/17 01:32 Hem Pathologist Commnt No 12/26/17 01:32 PT 12.6 Sec. (12.2-14.9) 12/26/17 06:54 INR 0.90 (0.87-1.13) 12/26/17 06:54 APTT 25.8 Sec. (24.2-36.6) 12/26/17 06:54 Sodium 123 mmol/L (137-145) L D 12/26/17 01:32 Potassium 4.7 mmol/L (3.6-5.0) 12/26/17 01:32 Chloride 83.8 mmol/L (98-107) L 12/26/17 01:32 Carbon Dioxide 25 mmol/L (22-30) 12/26/17 01:32 Anion Gap 19 mmol/L 12/26/17 01:32 BUN 4 mg/dL (9-20) L 12/26/17 01:32 Creatinine 0.5 mg/dL (0.8-1.5) L 12/26/17 01:32 Estimated GFR > 60 ml/min 12/26/17 01:32 BUN/Creatinine Ratio 8 % 12/26/17 01:32 Glucose 111 mg/dL (75-100) H 12/26/17 01:32 Calcium 8.7 mg/dL (8.4-10.2) 12/26/17 01:32 Magnesium 1.10 mg/dL (1.7-2.3) L 12/26/17 06:58 Total Bilirubin 1.10 mg/dL (0.1-1.2) 12/26/17 06:58 Direct Bilirubin 0.3 mg/dL (0-0.2) H 12/26/17 06:58 Indirect Bilirubin 0.8 mg/dL 12/26/17 06:58 AST 153 units/L (5-40) H 12/26/17 06:58 ALT 65 units/L (7-56) H 12/26/17 06:58 Alkaline Phosphatase 151 units/L (35-129) H 12/26/17 06:58 Troponin T < 0.010 ng/mL (0.00-0.029) 12/26/17 07:15 NT-Pro-B Natriuret Pep 352.8 pg/mL (0-900) 12/26/17 06:58 Total Protein 6.7 g/dL (6.3-8.2) 12/26/17 06:58 Albumin 3.6 g/dL (3.9-5) L 12/26/17 06:58 Albumin/Globulin Ratio 1.2 % 12/26/17 06:58 Plasma/Serum Alcohol 0.05 % (0-0.07) 12/26/17 06:58 Assessment and Plan Assessment and plan: s/p fall. CT scan of the head shows no acute intracranial abnormalities. PT evaluation. EtOH abuse. Patient will placed on CIWA protocol. Seizure disorder. Resume home medication of Dilantin. Seizure precautions. Consider EEG. Hyponatremia. Continue IV fluid normal saline. Metabolic encephalopathy. Continue to treat underlying causes. Treatment hyponatremia and check ammonia levels.
[2017-12-26] MEDS ORDERED: SODIUM CHLORIDE FLUSH SYRINGE 10 ML IV PRN (10:14)
[2017-12-26] MEDS ORDERED: ZOFRAN IV PRN (10:14)
[2017-12-26] MEDS ORDERED: LOVENOX SUB-Q ONE (12:19)
[2017-12-26] MEDS ORDERED: NACL 0.9% 1000 ML 1,000 ML ONE (12:19)
[2017-12-26] MEDS: LOVENOX SUB-Q SCH (12:28)
[2017-12-26] MEDS ORDERED: ATIVAN ONE (12:29)
[2017-12-26] MEDS ORDERED: MAGNESIUM SULFATE IV ONE (13:10)
[2017-12-26 13:12] LABS: Bilirubin,Urine NEG (Negative); Blood,Urine NEG (Negative); Color,Urine Yellow (Yellow); Protein,Urine <15 mg/dL mg/dL (Negative)
[2017-12-26 13:21] LABS: Amphetamine Screen,Urine PRESUMPTIVE NEGATIVE; Benzodiazepines Screen,Urine PRESUMPTIVE NEGATIVE; Cannabinoid Screen,Urine PRESUMPTIVE NEGATIVE; Cocaine Screen,Urine PRESUMPTIVE NEGATIVE; Methadone Screen,Urine PRESUMPTIVE NEGATIVE; Opiate Screen,Urine PRESUMPTIVE NEGATIVE
[2017-12-26] MEDS ORDERED: MAGNESIUM SULFATE 2GM/50ML 2 GM/50 ML BAG IV ONE (14:00)
[2017-12-26] MEDS: TYLENOL PO PRN (14:12)
[2017-12-26] MEDS ORDERED: ATIVAN IV PRN ×2 (14:15)
[2017-12-26] MEDS: ATIVAN IV PRN ×2 (14:37→17:14)
[2017-12-26] MEDS: NACL 0.9% 1000 ML 1,000 ML IV SCH (16:15)
[2017-12-26] MEDS: SODIUM CHLORIDE FLUSH SYRINGE 10 ML IV SCH (22:16)
[2017-12-27 04:47] LABS: Basophils % (Auto) 0.6 % (0.0-1.8); Eosinophils % (Auto) 0.6 % (0.0-4.3); Hematocrit 36.8 % (35.5-45.6); Hemoglobin 12.9 gm/dl (11.8-15.2); Lymphocytes # (Auto) 0.5 K/mm3 (1.2-5.4); Lymphocytes % (Auto) 12.8 % (13.4-35.0); Mean Corpuscular HGB Conc 35 % (32-34); Mean Corpuscular Hemoglobin 37 pg (28-32); Mean Corpuscular Volume 106 fl (84-94); Monocytes # (Auto) 0.5 K/mm3 (0.0-0.8); Monocytes % (Auto) 11.4 % (0.0-7.3); Platelet Count 143 K/mm3 (140-440); Red Blood Count 3.47 M/mm3 (3.65-5.03); Red Cell Distribution Width 16.3 % (13.2-15.2)
[2017-12-27 05:01] LABS: BUN/Creatinine Ratio 10; Blood Urea Nitrogen 7 mg/dL (9-20); Hemolysis Index 6
[2017-12-27] MEDS: NACL 0.9% 1000 ML 1,000 ML IV SCH ×2 (05:52→22:16)
[2017-12-27] MEDS: K-DUR PO SCH ×2 (09:43→15:24)
[2017-12-27] MEDS: LOVENOX SUB-Q SCH (09:43)
[2017-12-27] MEDS: TYLENOL PO PRN ×3 (09:49→22:23)
[2017-12-27] MEDS: SODIUM CHLORIDE FLUSH SYRINGE 10 ML IV SCH ×2 (09:52→21:37)
--- NOTE | 2017-12-27 11:27 | Progress Note ---
Assessment and Plan Assessment and plan: s/p fall. CT scan of the head shows no acute intracranial abnormalities. PT evaluation. Alcohol withdrawal syndrome. On [facility] protocol. Seizure disorder. Resume home medication of Dilantin. Seizure precautions.. Hyponatremia. improved, Continue IV fluid normal saline. Metabolic encephalopathy. Continue to treat underlying causes. Treatment hyponatremia. doing better History Interval history: Patient presented with fall. Diagnosed with alcohol withdrawal, very poor eyesight Hospitalist Physical - Physical exam Narrative exam: GEN: Not in acute distress, HEENT: Normocephalic, atraumatic, Neck: supple, No JVD Lungs: Clear to auscultation bilaterally, no crackles, no wheeze Heart:S1 and S2 regular, no murmurs, rubs or gallop, Abd:soft, non-tender, non-distended, normal bowel sounds Ext: No edema, no clubbing, no cyanosis Neuro: AAO x 3, tremors both hands, - Constitutional Vitals: Temp Pulse Resp BP Pulse Ox 100.4 F H 101 H 18 156/90 93 12/27/17 06:15 12/27/17 06:15 12/27/17 06:15 12/27/17 06:15 12/27/17 06:15 General appearance: Present: no acute distress, well-nourished Results - Labs CBC & Chem 7: 12/27/17 04:32 12/27/17 04:32 Labs: Laboratory Last Values WBC 4.1 K/mm3 (4.5-11.0) L 12/27/17 04:32 RBC 3.47 M/mm3 (3.65-5.03) L 12/27/17 04:32 Hgb 12.9 gm/dl (11.8-15.2) 12/27/17 04:32 Hct 36.8 % (35.5-45.6) D 12/27/17 04:32 MCV 106 fl (84-94) H 12/27/17 04:32 MCH 37 pg (28-32) H 12/27/17 04:32 MCHC 35 % (32-34) H 12/27/17 04:32 RDW 16.3 % (13.2-15.2) H 12/27/17 04:32 Plt Count 143 K/mm3 (140-440) 12/27/17 04:32 Lymph % (Auto) 12.8 % (13.4-35.0) L 12/27/17 04:32 [place] % (Auto) 11.4 % (0.0-7.3) H 12/27/17 04:32 Eos % (Auto) 0.6 % (0.0-4.3) 12/27/17 04:32 Baso % (Auto) 0.6 % (0.0-1.8) 12/27/17 04:32 Lymph # 0.5 K/mm3 (1.2-5.4) L 12/27/17 04:32 [place] # 0.5 K/mm3 (0.0-0.8) 12/27/17 04:32 Eos # 0.0 K/mm3 (0.0-0.4) 12/27/17 04:32 Baso # 0.0 K/mm3 (0.0-0.1) 12/27/17 04:32 Add Manual Diff Complete 12/26/17 01:32 Total Counted 100 12/26/17 01:32 Seg Neutrophils % 74.6 % (40.0-70.0) H 12/27/17 04:32 Seg Neuts % (Manual) 63.0 % (40.0-70.0) 12/26/17 01:32 Band Neutrophils % 5.0 % 12/26/17 01:32 Lymphocytes % (Manual) 13.0 % (13.4-35.0) L 12/26/17 01:32 Reactive Lymphs % (Man) 0 % 12/26/17 01:32 Monocytes % (Manual) 17.0 % (0.0-7.3) H 12/26/17 01:32 Eosinophils % (Manual) 0 % (0.0-4.3) 12/26/17 01:32 Basophils % (Manual) 2.0 % (0.0-1.8) H 12/26/17 01:32 Metamyelocytes % 0 % 12/26/17 01:32 Myelocytes % 0 % 12/26/17 01:32 Promyelocytes % 0 % 12/26/17 01:32 Blast Cells % 0 % 12/26/17 01:32 Nucleated RBC % Not Reportable 12/26/17 01:32 Seg Neutrophils # 3.1 K/mm3 (1.8-7.7) 12/27/17 04:32 Seg Neutrophils # Man 4.0 K/mm3 (1.8-7.7) 12/26/17 01:32 Band Neutrophils # 0.3 K/mm3 12/26/17 01:32 Lymphocytes # (Manual) 0.8 K/mm3 (1.2-5.4) L 12/26/17 01:32 Abs React Lymphs (Man) 0.0 K/mm3 12/26/17 01:32 Monocytes # (Manual) 1.1 K/mm3 (0.0-0.8) H 12/26/17 01:32 Eosinophils # (Manual) 0.0 K/mm3 (0.0-0.4) 12/26/17 01:32 Basophils # (Manual) 0.1 K/mm3 (0.0-0.1) 12/26/17 01:32 Metamyelocytes # 0.0 K/mm3 12/26/17 01:32 Myelocytes # 0.0 K/mm3 12/26/17 01:32 Promyelocytes # 0.0 K/mm3 12/26/17 01:32 Blast Cells # 0.0 K/mm3 12/26/17 01:32 WBC Morphology Not Reportable 12/26/17 01:32 Hypersegmented Neuts Not Reportable 12/26/17 01:32 Hyposegmented Neuts Not Reportable 12/26/17 01:32 Hypogranular Neuts Not Reportable 12/26/17 01:32 Smudge Cells Not Reportable 12/26/17 01:32 Toxic Granulation Not Reportable 12/26/17 01:32 Toxic Vacuolation Not Reportable 12/26/17 01:32 Dohle Bodies Not Reportable 12/26/17 01:32 Pelger-Huet Anomaly Not Reportable 12/26/17 01:32 Lana Rods Not Reportable 12/26/17 01:32 Platelet Estimate Appears normal 12/26/17 01:32 Clumped Platelets Not Reportable 12/26/17 01:32 Plt Clumps, EDTA Not Reportable 12/26/17 01:32 Large Platelets Few 12/26/17 01:32 Giant Platelets Not Reportable 12/26/17 01:32 Platelet Satelliting Not Reportable 12/26/17 01:32 Plt Morphology Comment Not Reportable 12/26/17 01:32 RBC Morphology Normal 12/26/17 01:32 Dimorphic RBCs Not Reportable 12/26/17 01:32 Polychromasia Not Reportable 12/26/17 01:32 Hypochromasia Not Reportable 12/26/17 01:32 Poikilocytosis Not Reportable 12/26/17 01:32 Anisocytosis Not Reportable 12/26/17 01:32 Microcytosis Not Reportable 12/26/17 01:32 Macrocytosis Not Reportable 12/26/17 01:32 Spherocytes Not Reportable 12/26/17 01:32 Pappenheimer Bodies Not Reportable 12/26/17 01:32 Sickle Cells Not Reportable 12/26/17 01:32 Target Cells Not Reportable 12/26/17 01:32 Tear Drop Cells Not Reportable 12/26/17 01:32 Ovalocytes Not Reportable 12/26/17 01:32 Helmet Cells Not Reportable 12/26/17 01:32 [place] Bodies Not Reportable 12/26/17 01:32 [place] Rings Not Reportable 12/26/17 01:32 [place] Cells Not Reportable 12/26/17 01:32 Bite Cells Not Reportable 12/26/17 01:32 Crenated Cell Not Reportable 12/26/17 01:32 Elliptocytes Not Reportable 12/26/17 01:32 Acanthocytes (Spur) Not Reportable 12/26/17 01:32 Rouleaux Not Reportable 12/26/17 01:32 Hemoglobin C Crystals Not Reportable 12/26/17 01:32 Schistocytes Not Reportable 12/26/17 01:32 Malaria parasites Not Reportable 12/26/17 01:32 Shahzad Bodies Not Reportable 12/26/17 01:32 Hem Pathologist Commnt No 12/26/17 01:32 PT 12.6 Sec. (12.2-14.9) 12/26/17 06:54 INR 0.90 (0.87-1.13) 12/26/17 06:54 APTT 25.8 Sec. (24.2-36.6) 12/26/17 06:54 Sodium 134 mmol/L (137-145) L D 12/27/17 04:32 Potassium 3.2 mmol/L (3.6-5.0) L D 12/27/17 04:32 Chloride 97.8 mmol/L (98-107) L 12/27/17 04:32 Carbon Dioxide 26 mmol/L (22-30) 12/27/17 04:32 Anion Gap 13 mmol/L 12/27/17 04:32 BUN 7 mg/dL (9-20) L 12/27/17 04:32 Creatinine 0.7 mg/dL (0.8-1.5) L 12/27/17 04:32 Estimated GFR > 60 ml/min 12/27/17 04:32 BUN/Creatinine Ratio 10 % 12/27/17 04:32 Glucose 97 mg/dL (75-100) 12/27/17 04:32 Calcium 8.0 mg/dL (8.4-10.2) L 12/27/17 04:32 Phosphorus 2.70 mg/dL (2.5-4.5) 12/27/17 04:37 Magnesium 1.60 mg/dL (1.7-2.3) L 12/27/17 04:37 Total Bilirubin 1.10 mg/dL (0.1-1.2) 12/26/17 06:58 Direct Bilirubin 0.3 mg/dL (0-0.2) H 12/26/17 06:58 Indirect Bilirubin 0.8 mg/dL 12/26/17 06:58 AST 153 units/L (5-40) H 12/26/17 06:58 ALT 65 units/L (7-56) H 12/26/17 06:58 Alkaline Phosphatase 151 units/L (35-129) H 12/26/17 06:58 Ammonia 33.0 umol/L (25-60) 12/26/17 13:49 Troponin T < 0.010 ng/mL (0.00-0.029) 12/26/17 07:15 NT-Pro-B Natriuret Pep 352.8 pg/mL (0-900) 12/26/17 06:58 Total Protein 6.7 g/dL (6.3-8.2) 12/26/17 06:58 Albumin 3.6 g/dL (3.9-5) L 12/26/17 06:58 Albumin/Globulin Ratio 1.2 % 12/26/17 06:58 Urine Color Yellow (Yellow) 12/26/17 12:02 Urine Turbidity Clear (Clear) 12/26/17 12:02 Urine pH 8.0 (5.0-7.0) H 12/26/17 12:02 Ur Specific [place] 1.005 (1.003-1.030) 12/26/17 12:02 Urine Protein <15 mg/dl mg/dL (Negative) 12/26/17 12:02 Urine Glucose (UA) Neg mg/dL (Negative) 12/26/17 12:02 Urine Ketones Neg mg/dL (Negative) 12/26/17 12:02 Urine Blood Neg (Negative) 12/26/17 12:02 Urine Nitrite Neg (Negative) 12/26/17 12:02 Urine Bilirubin Neg (Negative) 12/26/17 12:02 Urine Urobilinogen 2.0 mg/dL (<2.0) 12/26/17 12:02 Ur Leukocyte Esterase Tr (Negative) 12/26/17 12:02 Urine WBC (Auto) 3.0 /HPF (0.0-6.0) 12/26/17 12:02 Urine RBC (Auto) 1.0 /HPF (0.0-6.0) 12/26/17 12:02 Urine Opiates Screen Presumptive negative 12/26/17 12:02 Urine Methadone Screen Presumptive negative 12/26/17 12:02 Ur Barbiturates Screen Presumptive negative 12/26/17 12:02 Ur Phencyclidine Scrn Presumptive negative 12/26/17 12:02 Ur Amphetamines Screen Presumptive negative 12/26/17 12:02 U Benzodiazepines Scrn Presumptive negative 12/26/17 12:02 Urine Cocaine Screen Presumptive negative 12/26/17 12:02 U Marijuana (THC) Screen Presumptive negative 12/26/17 12:02 Drugs of Abuse Note Disclamer 12/26/17 12:02 Plasma/Serum Alcohol 0.05 % (0-0.07) 12/26/17 06:58
[2017-12-27] MEDS ORDERED: AFLURIA QUAD 2018-2019 SYRINGE IM ONE (12:00)
[2017-12-27] MEDS: TENORMIN PO SCH (15:25)
[2017-12-27] MEDS: ATIVAN IV PRN ×2 (15:49→23:59)
[2017-12-28 03:34] LABS: BUN/Creatinine Ratio 14; Blood Urea Nitrogen 7 mg/dL (9-20); Calcium 7.8 mg/dL (8.4-10.2); Hemolysis Index 12
--- NOTE | 2017-12-28 09:30 | Progress Note ---
Assessment and Plan Assessment and plan: s/p fall. CT scan of the head shows no acute intracranial abnormalities. Alcohol withdrawal syndrome. On [facility] protocol. Seizure disorder. Resume home medication of Dilantin. Seizure precautions.. Hyponatremia. improved, Continue IV fluid normal saline. Hypokalemia. Improved Hypomagnesemia. Give Mg iv and repeat in am left wrist swollen. No acute fracture seen on x ray Metabolic encephalopathy. Continue to treat underlying causes. Treatment hyponatremia. Doing better History Interval history: Patient presented with multiple falls. Diagnosed with alcohol withdrawal, very poor eyesight Hospitalist Physical - Physical exam Narrative exam: GEN: Not in acute distress, HEENT: Normocephalic, atraumatic, Neck: supple, No JVD Lungs: Clear to auscultation bilaterally, no crackles, no wheeze Heart:S1 and S2 regular, no murmurs, rubs or gallop, Abd:soft, non-tender, non-distended, normal bowel sounds Ext: No edema, no clubbing, no cyanosis Neuro: AAO x 3, tremors both hands, - Constitutional Vitals: Temp Pulse Resp BP Pulse Ox 99.9 F H 78 18 159/92 94 12/28/17 04:40 12/28/17 04:40 12/28/17 04:40 12/28/17 04:40 12/28/17 04:40 General appearance: Present: no acute distress, well-nourished Results - Labs CBC & Chem 7: 12/27/17 04:32 12/28/17 02:57 Labs: Laboratory Last Values WBC 4.1 K/mm3 (4.5-11.0) L 12/27/17 04:32 RBC 3.47 M/mm3 (3.65-5.03) L 12/27/17 04:32 Hgb 12.9 gm/dl (11.8-15.2) 12/27/17 04:32 Hct 36.8 % (35.5-45.6) D 12/27/17 04:32 MCV 106 fl (84-94) H 12/27/17 04:32 MCH 37 pg (28-32) H 12/27/17 04:32 MCHC 35 % (32-34) H 12/27/17 04:32 RDW 16.3 % (13.2-15.2) H 12/27/17 04:32 Plt Count 143 K/mm3 (140-440) 12/27/17 04:32 Lymph % (Auto) 12.8 % (13.4-35.0) L 12/27/17 04:32 Schley % (Auto) 11.4 % (0.0-7.3) H 12/27/17 04:32 Eos % (Auto) 0.6 % (0.0-4.3) 12/27/17 04:32 Baso % (Auto) 0.6 % (0.0-1.8) 12/27/17 04:32 Lymph # 0.5 K/mm3 (1.2-5.4) L 12/27/17 04:32 Schley # 0.5 K/mm3 (0.0-0.8) 12/27/17 04:32 Eos # 0.0 K/mm3 (0.0-0.4) 12/27/17 04:32 Baso # 0.0 K/mm3 (0.0-0.1) 12/27/17 04:32 Add Manual Diff Complete 12/26/17 01:32 Total Counted 100 12/26/17 01:32 Seg Neutrophils % 74.6 % (40.0-70.0) H 12/27/17 04:32 Seg Neuts % (Manual) 63.0 % (40.0-70.0) 12/26/17 01:32 Band Neutrophils % 5.0 % 12/26/17 01:32 Lymphocytes % (Manual) 13.0 % (13.4-35.0) L 12/26/17 01:32 Reactive Lymphs % (Man) 0 % 12/26/17 01:32 Monocytes % (Manual) 17.0 % (0.0-7.3) H 12/26/17 01:32 Eosinophils % (Manual) 0 % (0.0-4.3) 12/26/17 01:32 Basophils % (Manual) 2.0 % (0.0-1.8) H 12/26/17 01:32 Metamyelocytes % 0 % 12/26/17 01:32 Myelocytes % 0 % 12/26/17 01:32 Promyelocytes % 0 % 12/26/17 01:32 Blast Cells % 0 % 12/26/17 01:32 Nucleated RBC % Not Reportable 12/26/17 01:32 Seg Neutrophils # 3.1 K/mm3 (1.8-7.7) 12/27/17 04:32 Seg Neutrophils # Man 4.0 K/mm3 (1.8-7.7) 12/26/17 01:32 Band Neutrophils # 0.3 K/mm3 12/26/17 01:32 Lymphocytes # (Manual) 0.8 K/mm3 (1.2-5.4) L 12/26/17 01:32 Abs React Lymphs (Man) 0.0 K/mm3 12/26/17 01:32 Monocytes # (Manual) 1.1 K/mm3 (0.0-0.8) H 12/26/17 01:32 Eosinophils # (Manual) 0.0 K/mm3 (0.0-0.4) 12/26/17 01:32 Basophils # (Manual) 0.1 K/mm3 (0.0-0.1) 12/26/17 01:32 Metamyelocytes # 0.0 K/mm3 12/26/17 01:32 Myelocytes # 0.0 K/mm3 12/26/17 01:32 Promyelocytes # 0.0 K/mm3 12/26/17 01:32 Blast Cells # 0.0 K/mm3 12/26/17 01:32 WBC Morphology Not Reportable 12/26/17 01:32 Hypersegmented Neuts Not Reportable 12/26/17 01:32 Hyposegmented Neuts Not Reportable 12/26/17 01:32 Hypogranular Neuts Not Reportable 12/26/17 01:32 Smudge Cells Not Reportable 12/26/17 01:32 Toxic Granulation Not Reportable 12/26/17 01:32 Toxic Vacuolation Not Reportable 12/26/17 01:32 Dohle Bodies Not Reportable 12/26/17 01:32 Pelger-Huet Anomaly Not Reportable 12/26/17 01:32 Lana Rods Not Reportable 12/26/17 01:32 Platelet Estimate Appears normal 12/26/17 01:32 Clumped Platelets Not Reportable 12/26/17 01:32 Plt Clumps, EDTA Not Reportable 12/26/17 01:32 Large Platelets Few 12/26/17 01:32 Giant Platelets Not Reportable 12/26/17 01:32 Platelet Satelliting Not Reportable 12/26/17 01:32 Plt Morphology Comment Not Reportable 12/26/17 01:32 RBC Morphology Normal 12/26/17 01:32 Dimorphic RBCs Not Reportable 12/26/17 01:32 Polychromasia Not Reportable 12/26/17 01:32 Hypochromasia Not Reportable 12/26/17 01:32 Poikilocytosis Not Reportable 12/26/17 01:32 Anisocytosis Not Reportable 12/26/17 01:32 Microcytosis Not Reportable 12/26/17 01:32 Macrocytosis Not Reportable 12/26/17 01:32 Spherocytes Not Reportable 12/26/17 01:32 Pappenheimer Bodies Not Reportable 12/26/17 01:32 Sickle Cells Not Reportable 12/26/17 01:32 Target Cells Not Reportable 12/26/17 01:32 Tear Drop Cells Not Reportable 12/26/17 01:32 Ovalocytes Not Reportable 12/26/17 01:32 Helmet Cells Not Reportable 12/26/17 01:32 Alfonso-[place] Bodies Not Reportable 12/26/17 01:32 [place] Rings Not Reportable 12/26/17 01:32 Osman Cells Not Reportable 12/26/17 01:32 Bite Cells Not Reportable 12/26/17 01:32 Crenated Cell Not Reportable 12/26/17 01:32 Elliptocytes Not Reportable 12/26/17 01:32 Acanthocytes (Spur) Not Reportable 12/26/17 01:32 Rouleaux Not Reportable 12/26/17 01:32 Hemoglobin C Crystals Not Reportable 12/26/17 01:32 Schistocytes Not Reportable 12/26/17 01:32 Malaria parasites Not Reportable 12/26/17 01:32 Shahzad Bodies Not Reportable 12/26/17 01:32 Hem Pathologist Commnt No 12/26/17 01:32 PT 12.6 Sec. (12.2-14.9) 12/26/17 06:54 INR 0.90 (0.87-1.13) 12/26/17 06:54 APTT 25.8 Sec. (24.2-36.6) 12/26/17 06:54 Sodium 132 mmol/L (137-145) L 12/28/17 02:57 Potassium 3.6 mmol/L (3.6-5.0) 12/28/17 02:57 Chloride 98.1 mmol/L (98-107) 12/28/17 02:57 Carbon Dioxide 23 mmol/L (22-30) 12/28/17 02:57 Anion Gap 15 mmol/L 12/28/17 02:57 BUN 7 mg/dL (9-20) L 12/28/17 02:57 Creatinine 0.5 mg/dL (0.8-1.5) L 12/28/17 02:57 Estimated GFR > 60 ml/min 12/28/17 02:57 BUN/Creatinine Ratio 14 % 12/28/17 02:57 Glucose 93 mg/dL (75-100) 12/28/17 02:57 Lactic Acid 0.50 mmol/L (0.7-2.0) L 12/28/17 01:11 Calcium 7.8 mg/dL (8.4-10.2) L 12/28/17 02:57 Phosphorus 2.70 mg/dL (2.5-4.5) 12/27/17 04:37 Magnesium 1.60 mg/dL (1.7-2.3) L 12/27/17 04:37 Total Bilirubin 1.10 mg/dL (0.1-1.2) 12/26/17 06:58 Direct Bilirubin 0.3 mg/dL (0-0.2) H 12/26/17 06:58 Indirect Bilirubin 0.8 mg/dL 12/26/17 06:58 AST 153 units/L (5-40) H 12/26/17 06:58 ALT 65 units/L (7-56) H 12/26/17 06:58 Alkaline Phosphatase 151 units/L (35-129) H 12/26/17 06:58 Ammonia 33.0 umol/L (25-60) 12/26/17 13:49 Troponin T < 0.010 ng/mL (0.00-0.029) 12/26/17 07:15 NT-Pro-B Natriuret Pep 352.8 pg/mL (0-900) 12/26/17 06:58 Total Protein 6.7 g/dL (6.3-8.2) 12/26/17 06:58 Albumin 3.6 g/dL (3.9-5) L 12/26/17 06:58 Albumin/Globulin Ratio 1.2 % 12/26/17 06:58 Urine Color Yellow (Yellow) 12/26/17 12:02 Urine Turbidity Clear (Clear) 12/26/17 12:02 Urine pH 8.0 (5.0-7.0) H 12/26/17 12:02 Ur Specific [place] 1.005 (1.003-1.030) 12/26/17 12:02 Urine Protein <15 mg/dl mg/dL (Negative) 12/26/17 12:02 Urine Glucose (UA) Neg mg/dL (Negative) 12/26/17 12:02 Urine Ketones Neg mg/dL (Negative) 12/26/17 12:02 Urine Blood Neg (Negative) 12/26/17 12:02 Urine Nitrite Neg (Negative) 12/26/17 12:02 Urine Bilirubin Neg (Negative) 12/26/17 12:02 Urine Urobilinogen 2.0 mg/dL (<2.0) 12/26/17 12:02 Ur Leukocyte Esterase Tr (Negative) 12/26/17 12:02 Urine WBC (Auto) 3.0 /HPF (0.0-6.0) 12/26/17 12:02 Urine RBC (Auto) 1.0 /HPF (0.0-6.0) 12/26/17 12:02 Urine Opiates Screen Presumptive negative 12/26/17 12:02 Urine Methadone Screen Presumptive negative 12/26/17 12:02 Ur Barbiturates Screen Presumptive negative 12/26/17 12:02 Ur Phencyclidine Scrn Presumptive negative 12/26/17 12:02 Ur Amphetamines Screen Presumptive negative 12/26/17 12:02 U Benzodiazepines Scrn Presumptive negative 12/26/17 12:02 Urine Cocaine Screen Presumptive negative 12/26/17 12:02 U Marijuana (THC) Screen Presumptive negative 12/26/17 12:02 Drugs of Abuse Note Disclamer 12/26/17 12:02 Plasma/Serum Alcohol 0.05 % (0-0.07) 12/26/17 06:58
[2017-12-28] MEDS: K-DUR PO SCH (09:55)
[2017-12-28] MEDS: TENORMIN PO SCH (09:55)
[2017-12-28] MEDS: LOVENOX SUB-Q SCH (09:56)
[2017-12-28] MEDS ORDERED: MAGNESIUM SULFATE 4GM/100ML 4 GM/100 ML BAG IV ONE (10:00)
--- NOTE | 2017-12-28 10:19 | XRay Report ---
LEFT WRIST, 3 views: HISTORY: Pain, swelling. Compared to 03/17/17. Mild osteopenia is suspected. 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 No evidence for acute fracture, dislocation or ligamentous injury. 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 Moderate diffuse soft tissue swelling. IMPRESSION: Chronic findings as outlined above. No acute injury is appreciated on x-ray. Soft tissue swelling.
[2017-12-28] MEDS: SODIUM CHLORIDE FLUSH SYRINGE 10 ML IV SCH ×2 (10:36→22:19)
[2017-12-28] MEDS: TYLENOL PO PRN ×2 (11:54→18:59)
[2017-12-28] MEDS: ATIVAN IV PRN ×2 (14:54→20:47)
[2017-12-28] MEDS: NACL 0.9% 1000 ML 1,000 ML IV SCH (18:58)
[2017-12-29] MEDS: TYLENOL PO PRN ×3 (05:45→20:13)
[2017-12-29 07:27] LABS: BUN/Creatinine Ratio 14; Blood Urea Nitrogen 7 mg/dL (9-20); Calcium 8.2 mg/dL (8.4-10.2); Hemolysis Index 8
--- NOTE | 2017-12-29 10:27 | Progress Note ---
Assessment and Plan Assessment and plan: s/p fall. CT scan of the head shows no acute intracranial abnormalities. Alcohol withdrawal syndrome. Continue [facility] protocol. Seizure disorder. Resume home medication of Dilantin. Seizure precautions.. Hyponatremia. improved, Continue IV fluid normal saline. Hypokalemia. Improved Hypomagnesemia. Now resolved left wrist swollen. No acute fracture seen on x ray Metabolic encephalopathy. Continue to treat underlying causes. Treatment hyponatremia. Fever. Blood cultures drawn Doing better. Poss dc tomorrow History Interval history: Patient presented with multiple falls. Diagnosed with alcohol withdrawal, very poor eyesight, Fever Hospitalist Physical - Physical exam Narrative exam: GEN: Not in acute distress, HEENT: Normocephalic, atraumatic, Neck: supple, No JVD Lungs: Clear to auscultation bilaterally, no crackles, no wheeze Heart:S1 and S2 regular, no murmurs, rubs or gallop, Abd:soft, non-tender, non-distended, normal bowel sounds Ext: No edema, no clubbing, no cyanosis Neuro: AAO x 3, tremors both hands, - Constitutional Vitals: Temp Pulse Resp BP Pulse Ox 99.2 F 70 18 152/89 95 12/29/17 05:45 12/29/17 05:45 12/29/17 05:45 12/29/17 05:45 12/29/17 05:45 General appearance: Present: no acute distress Results - Labs CBC & Chem 7: 12/27/17 04:32 12/29/17 05:48 Labs: Laboratory Last Values WBC 4.1 K/mm3 (4.5-11.0) L 12/27/17 04:32 RBC 3.47 M/mm3 (3.65-5.03) L 12/27/17 04:32 Hgb 12.9 gm/dl (11.8-15.2) 12/27/17 04:32 Hct 36.8 % (35.5-45.6) D 12/27/17 04:32 MCV 106 fl (84-94) H 12/27/17 04:32 MCH 37 pg (28-32) H 12/27/17 04:32 MCHC 35 % (32-34) H 12/27/17 04:32 RDW 16.3 % (13.2-15.2) H 12/27/17 04:32 Plt Count 143 K/mm3 (140-440) 12/27/17 04:32 Lymph % (Auto) 12.8 % (13.4-35.0) L 12/27/17 04:32 Bee % (Auto) 11.4 % (0.0-7.3) H 12/27/17 04:32 Eos % (Auto) 0.6 % (0.0-4.3) 12/27/17 04:32 Baso % (Auto) 0.6 % (0.0-1.8) 12/27/17 04:32 Lymph # 0.5 K/mm3 (1.2-5.4) L 12/27/17 04:32 Bee # 0.5 K/mm3 (0.0-0.8) 12/27/17 04:32 Eos # 0.0 K/mm3 (0.0-0.4) 12/27/17 04:32 Baso # 0.0 K/mm3 (0.0-0.1) 12/27/17 04:32 Add Manual Diff Complete 12/26/17 01:32 Total Counted 100 12/26/17 01:32 Seg Neutrophils % 74.6 % (40.0-70.0) H 12/27/17 04:32 Seg Neuts % (Manual) 63.0 % (40.0-70.0) 12/26/17 01:32 Band Neutrophils % 5.0 % 12/26/17 01:32 Lymphocytes % (Manual) 13.0 % (13.4-35.0) L 12/26/17 01:32 Reactive Lymphs % (Man) 0 % 12/26/17 01:32 Monocytes % (Manual) 17.0 % (0.0-7.3) H 12/26/17 01:32 Eosinophils % (Manual) 0 % (0.0-4.3) 12/26/17 01:32 Basophils % (Manual) 2.0 % (0.0-1.8) H 12/26/17 01:32 Metamyelocytes % 0 % 12/26/17 01:32 Myelocytes % 0 % 12/26/17 01:32 Promyelocytes % 0 % 12/26/17 01:32 Blast Cells % 0 % 12/26/17 01:32 Nucleated RBC % Not Reportable 12/26/17 01:32 Seg Neutrophils # 3.1 K/mm3 (1.8-7.7) 12/27/17 04:32 Seg Neutrophils # Man 4.0 K/mm3 (1.8-7.7) 12/26/17 01:32 Band Neutrophils # 0.3 K/mm3 12/26/17 01:32 Lymphocytes # (Manual) 0.8 K/mm3 (1.2-5.4) L 12/26/17 01:32 Abs React Lymphs (Man) 0.0 K/mm3 12/26/17 01:32 Monocytes # (Manual) 1.1 K/mm3 (0.0-0.8) H 12/26/17 01:32 Eosinophils # (Manual) 0.0 K/mm3 (0.0-0.4) 12/26/17 01:32 Basophils # (Manual) 0.1 K/mm3 (0.0-0.1) 12/26/17 01:32 Metamyelocytes # 0.0 K/mm3 12/26/17 01:32 Myelocytes # 0.0 K/mm3 12/26/17 01:32 Promyelocytes # 0.0 K/mm3 12/26/17 01:32 Blast Cells # 0.0 K/mm3 12/26/17 01:32 WBC Morphology Not Reportable 12/26/17 01:32 Hypersegmented Neuts Not Reportable 12/26/17 01:32 Hyposegmented Neuts Not Reportable 12/26/17 01:32 Hypogranular Neuts Not Reportable 12/26/17 01:32 Smudge Cells Not Reportable 12/26/17 01:32 Toxic Granulation Not Reportable 12/26/17 01:32 Toxic Vacuolation Not Reportable 12/26/17 01:32 Dohle Bodies Not Reportable 12/26/17 01:32 Pelger-Huet Anomaly Not Reportable 12/26/17 01:32 Lana Rods Not Reportable 12/26/17 01:32 Platelet Estimate Appears normal 12/26/17 01:32 Clumped Platelets Not Reportable 12/26/17 01:32 Plt Clumps, EDTA Not Reportable 12/26/17 01:32 Large Platelets Few 12/26/17 01:32 Giant Platelets Not Reportable 12/26/17 01:32 Platelet Satelliting Not Reportable 12/26/17 01:32 Plt Morphology Comment Not Reportable 12/26/17 01:32 RBC Morphology Normal 12/26/17 01:32 Dimorphic RBCs Not Reportable 12/26/17 01:32 Polychromasia Not Reportable 12/26/17 01:32 Hypochromasia Not Reportable 12/26/17 01:32 Poikilocytosis Not Reportable 12/26/17 01:32 Anisocytosis Not Reportable 12/26/17 01:32 Microcytosis Not Reportable 12/26/17 01:32 Macrocytosis Not Reportable 12/26/17 01:32 Spherocytes Not Reportable 12/26/17 01:32 Pappenheimer Bodies Not Reportable 12/26/17 01:32 Sickle Cells Not Reportable 12/26/17 01:32 Target Cells Not Reportable 12/26/17 01:32 Tear Drop Cells Not Reportable 12/26/17 01:32 Ovalocytes Not Reportable 12/26/17 01:32 Helmet Cells Not Reportable 12/26/17 01:32 Alfonso-[place] Bodies Not Reportable 12/26/17 01:32 [place] Rings Not Reportable 12/26/17 01:32 Osman Cells Not Reportable 12/26/17 01:32 Bite Cells Not Reportable 12/26/17 01:32 Crenated Cell Not Reportable 12/26/17 01:32 Elliptocytes Not Reportable 12/26/17 01:32 Acanthocytes (Spur) Not Reportable 12/26/17 01:32 Rouleaux Not Reportable 12/26/17 01:32 Hemoglobin C Crystals Not Reportable 12/26/17 01:32 Schistocytes Not Reportable 12/26/17 01:32 Malaria parasites Not Reportable 12/26/17 01:32 Shahzad Bodies Not Reportable 12/26/17 01:32 Hem Pathologist Commnt No 12/26/17 01:32 PT 12.6 Sec. (12.2-14.9) 12/26/17 06:54 INR 0.90 (0.87-1.13) 12/26/17 06:54 APTT 25.8 Sec. (24.2-36.6) 12/26/17 06:54 Sodium 133 mmol/L (137-145) L 12/29/17 05:48 Potassium 4.0 mmol/L (3.6-5.0) 12/29/17 05:48 Chloride 98.6 mmol/L (98-107) 12/29/17 05:48 Carbon Dioxide 25 mmol/L (22-30) 12/29/17 05:48 Anion Gap 13 mmol/L 12/29/17 05:48 BUN 7 mg/dL (9-20) L 12/29/17 05:48 Creatinine 0.5 mg/dL (0.8-1.5) L 12/29/17 05:48 Estimated GFR > 60 ml/min 12/29/17 05:48 BUN/Creatinine Ratio 14 % 12/29/17 05:48 Glucose 85 mg/dL (75-100) 12/29/17 05:48 Lactic Acid 0.50 mmol/L (0.7-2.0) L 12/28/17 01:11 Calcium 8.2 mg/dL (8.4-10.2) L 12/29/17 05:48 Phosphorus 2.70 mg/dL (2.5-4.5) 12/27/17 04:37 Magnesium 1.70 mg/dL (1.7-2.3) 12/29/17 05:48 Total Bilirubin 1.10 mg/dL (0.1-1.2) 12/26/17 06:58 Direct Bilirubin 0.3 mg/dL (0-0.2) H 12/26/17 06:58 Indirect Bilirubin 0.8 mg/dL 12/26/17 06:58 AST 153 units/L (5-40) H 12/26/17 06:58 ALT 65 units/L (7-56) H 12/26/17 06:58 Alkaline Phosphatase 151 units/L (35-129) H 12/26/17 06:58 Ammonia 33.0 umol/L (25-60) 12/26/17 13:49 Troponin T < 0.010 ng/mL (0.00-0.029) 12/26/17 07:15 NT-Pro-B Natriuret Pep 352.8 pg/mL (0-900) 12/26/17 06:58 Total Protein 6.7 g/dL (6.3-8.2) 12/26/17 06:58 Albumin 3.6 g/dL (3.9-5) L 12/26/17 06:58 Albumin/Globulin Ratio 1.2 % 12/26/17 06:58 Urine Color Yellow (Yellow) 12/26/17 12:02 Urine Turbidity Clear (Clear) 12/26/17 12:02 Urine pH 8.0 (5.0-7.0) H 12/26/17 12:02 Ur Specific [place] 1.005 (1.003-1.030) 12/26/17 12:02 Urine Protein <15 mg/dl mg/dL (Negative) 12/26/17 12:02 Urine Glucose (UA) Neg mg/dL (Negative) 12/26/17 12:02 Urine Ketones Neg mg/dL (Negative) 12/26/17 12:02 Urine Blood Neg (Negative) 12/26/17 12:02 Urine Nitrite Neg (Negative) 12/26/17 12:02 Urine Bilirubin Neg (Negative) 12/26/17 12:02 Urine Urobilinogen 2.0 mg/dL (<2.0) 12/26/17 12:02 Ur Leukocyte Esterase Tr (Negative) 12/26/17 12:02 Urine WBC (Auto) 3.0 /HPF (0.0-6.0) 12/26/17 12:02 Urine RBC (Auto) 1.0 /HPF (0.0-6.0) 12/26/17 12:02 Urine Opiates Screen Presumptive negative 12/26/17 12:02 Urine Methadone Screen Presumptive negative 12/26/17 12:02 Ur Barbiturates Screen Presumptive negative 12/26/17 12:02 Ur Phencyclidine Scrn Presumptive negative 12/26/17 12:02 Ur Amphetamines Screen Presumptive negative 12/26/17 12:02 U Benzodiazepines Scrn Presumptive negative 12/26/17 12:02 Urine Cocaine Screen Presumptive negative 12/26/17 12:02 U Marijuana (THC) Screen Presumptive negative 12/26/17 12:02 Drugs of Abuse Note Disclamer 12/26/17 12:02 Plasma/Serum Alcohol 0.05 % (0-0.07) 12/26/17 06:58
[2017-12-29] MEDS: TENORMIN PO SCH (11:05)
[2017-12-29] MEDS: K-DUR PO SCH (11:05)
[2017-12-29] MEDS: LOVENOX SUB-Q SCH (11:06)
[2017-12-29] MEDS: SODIUM CHLORIDE FLUSH SYRINGE 10 ML IV SCH ×2 (11:07→21:08)
[2017-12-29] MEDS: ATIVAN IV PRN (11:13)
[2017-12-29] MEDS: FOLVITE PO SCH (14:27)
[2017-12-29] MEDS: THERAGRAN Tab PO SCH (14:27)
[2017-12-29] MEDS: NACL 0.9% 1000 ML 1,000 ML IV SCH (21:10)
[2017-12-29] MEDS ORDERED: DILANTIN PO SCH (22:00)
[2017-12-30] MEDS: TENORMIN PO SCH (09:32)
[2017-12-30] MEDS: K-DUR PO SCH (09:32)
[2017-12-30] MEDS: LOVENOX SUB-Q SCH (09:32)
[2017-12-30] MEDS: THERAGRAN Tab PO SCH (09:33)
[2017-12-30] MEDS: FOLVITE PO SCH (09:33)
[2017-12-30] MEDS: TYLENOL PO PRN ×2 (09:35→14:56)
[2017-12-30] MEDS: SODIUM CHLORIDE FLUSH SYRINGE 10 ML IV SCH (10:00)
[2017-12-30] MEDS ORDERED: NORVASC PO SCH (10:00)
--- NOTE | 2017-12-30 10:26 | Discharge Summary ---
Providers - Providers Date of Admission: 12/26/17 07:56 Date of discharge: 12/30/17 Attending physician: NATALIA GOMEZ 12/27/17 11:47 Consult to Wound/ET Nurse [CONS] Routine Reason For Exam: wound eval 12/27/17 13:03 Physical Therapy Evaluation and Treat [CONS] Routine Comment: Reason For Exam: multiple falls Primary care physician: SONOGRAPHER Hospitalization Condition: Fair Disposition: DC-01 TO HOME OR SELFCARE Exam - Constitutional Vitals: Temp Pulse Resp BP Pulse Ox 98.4 F 124 H 20 150/103 96 12/30/17 05:34 12/30/17 09:33 12/30/17 05:34 12/30/17 09:33 12/30/17 05:34 Plan Activity: advance as tolerated Diet: regular Durable Medical Equipment Needed Upon Discharge: Walker-Rolling Additional Instructions: 1.Follow up with PCP or [facility] in 1 week. Follow up with: PRIMARY CARE,MD [Primary Care Provider] - 3-5 Days Prescriptions: amLODIPine [Norvasc] 5 mg PO QDAY #30 tablet Atenolol [Tenormin] 50 mg PO QDAY #30 tablet Multivitamin Tab [Multiple Vitamin TAB (Theragran)] 1 each PO DAILY #30 tablet Phenytoin Sodium Extended [Dilantin] 300 mg PO QHS #30 capsule Thiamine [Vitamin B-1] 100 mg PO QDAY #30 tablet
[2017-12-30] MEDS: ATIVAN IV PRN (10:45)
[2017-12-30] MEDS: NACL 0.9% 1000 ML 1,000 ML IV SCH (11:02)
[2017-12-30 12:58] VITALS: BP 134/81
== END 2017-12-30 15:05 | disposition home or self-care (01) | DRG 640 ==
LOC: ED 01:04 → 4A 07:56 → 3A 10:27
PROVIDERS: ADMIT Hospitalist; ATTEND Internal Medicine
DX: E87.1 Hypo-osmolality and hyponatremia (principal); G93.41 Metabolic encephalopathy; F10.239 Alcohol dependence with withdrawal, unspecified; G40.909 Epilepsy, unspecified, not intractable, without status epilepticus; E87.6 Hypokalemia; E83.42 Hypomagnesemia; F17.200 Nicotine dependence, unspecified, uncomplicated; M79.89 Other specified soft tissue disorders; Z79.899 Other long term (current) drug therapy
CPT/HCPCS: 36415; 70450; 71045; 80048; 80074; 80185; 80307; 80320; 81001; 82140; 82962; 83735; 83880; 84100; 84484; 85007; 85025; 85610; 85730; 87040; 87086; 90686; 93005; 93010; 96361; 96365; 96366; 96375; G0480; J1650; J2060; J3411; J3475; J7030

== ENCOUNTER 2019-01-04 22:02 | Emergency (ER) | payer SELFPAY ==
--- NOTE | 2019-01-04 22:35 | Emergency Department Report ---
Blank Doc - Documentation Documentation: 63-year-old male that presents with SZ and right hip pain after SZ. This initial assessment/diagnostic orders/clinical plan/treatment(s) is/are subject to change based on patient's health status, clinical progression and re- assessment by fellow clinical providers in the ED. Further treatment and workup at subsequent clinical providers discretion. Patient/guardians urged not to elope from the ED as their condition may be serious if not clinically assessed and managed. Initial orders include: 1- Patient sent to [facility] for further evaluation and treatment 2- EKG 3- labs 4- CT head
[2019-01-04 23:20] LABS: Mean Corpuscular HGB Conc 37 % (32-34); Mean Corpuscular Volume 100 fl (84-94); Platelet Count 317 K/mm3 (140-440); Red Blood Count 3.88 M/mm3 (3.65-5.03); Red Cell Distribution Width 16.2 % (13.2-15.2)
[2019-01-04 23:40] LABS: Albumin 3.9 g/dL (3.9-5); BUN/Creatinine Ratio 11; Blood Urea Nitrogen 9 mg/dL (9-20); Calcium 8.7 mg/dL (8.4-10.2); Hemolysis Index 478
[2019-01-04 23:51] LABS: Hematocrit 38.9 % (35.5-45.6); Hemoglobin 14.2 gm/dl (11.8-15.2)
[2019-01-04 23:52] LABS: Alanine Aminotransferase 28 units/L (7-56)
--- NOTE | 2019-01-05 01:08 | Cat Scan Report ---
CT HEAD WITHOUT CONTRAST INDICATION: Seizure TECHNIQUE: All CT scans at this location are performed using CT dose reduction for ALARA by means of automated exposure control. COMPARISON: 06/22/2018 FINDINGS: BRAIN: No hemorrhage or mass effect are seen. No evidence of acute infarction is noted. Mild white ma tter microvascular changes are noted. ORBITS: Normal as visualized. SOFT TISSUES OF HEAD: Normal. CALVARIUM: Normal. VISUALIZED PARANASAL SINUSES AND MASTOID AIR CELLS: Visualized sinuses are clear. Right mastoid thick ening is unchanged. ADDITIONAL FINDINGS: None. IMPRESSION: No acute intracranial abnormality. Signer Name: Wesley So MD Signed: 01/05/2019 1:03 AM Workstation Name: [id number]
[2019-01-05] MEDS ORDERED: SODIUM CHLORIDE 0.9% 1000 ML 1,000 ML IV ONE ×2 (01:20→03:49)
--- NOTE | 2019-01-05 01:23 | Emergency Department Report ---
HPI - General Chief Complaint: Seizure Time Seen by Provider: 01/04/19 22:31 - HPI HPI: Room 17 The patient is a 63-year-old male presenting with a chief complaint seizure. The patient has a history of seizure disorder but states she's been noncompliant with Dilantin secondary to being unable to afford the medication. Patient states she had a seizure today prompted him to come to the emergency department. Patient complains of pain in the neck and left hip since the seizure. Location: [See above] Duration: [See above] Quality: [See above] Severity: [See above] Timing: [See above] Context: [See above] Modifying factors: [See above] Associated signs and symptoms: [see above] ED Past Medical Hx - Past Medical History Previous Medical History?: Yes Hx Hypertension: Yes Hx Seizures: Yes Hx Psychiatric Treatment: Yes (anxiety psychosis) Additional medical history: Other Hx is unclear - Surgical History Past Surgical History?: Yes Additional Surgical History: R knee surgery, left lung injury - Family History Family history: no significant - Social History Smoking Status: Current Some Day Smoker Substance Use Type: None - Medications Home Medications: Home Medications Medication Instructions Recorded Confirmed Last Taken Type Folic Acid [Folvite] 1 mg PO DAILY #30 tablet 03/24/17 01/01/18 Unknown Rx Atenolol [Tenormin] 50 mg PO QDAY #30 tablet 12/30/17 01/01/18 Unknown Rx Multivitamin Tab [Multiple Vitamin 1 each PO DAILY #30 tablet 12/30/17 01/01/18 Unknown Rx TAB (Theragran)] Thiamine [Vitamin B-1] 100 mg PO QDAY #30 tablet 12/30/17 01/01/18 Unknown Rx amLODIPine 5 mg PO QDAY #30 tablet 12/30/17 01/01/18 Unknown Rx Phenytoin Sodium Extended 400 mg PO QHS #120 capsule 01/04/18 Unknown Rx [Dilantin] Phenytoin [Dilantin] 100 mg PO Q8HR #90 capsule 01/05/19 Unknown Rx ED Review of Systems ROS: Stated complaint: SEIZURE,LEFT HIP PAIN Other details as noted in HPI Constitutional: no symptoms reported Eyes: denies: eye pain ENT: denies: throat pain Respiratory: no symptoms reported Cardiovascular: denies: chest pain Endocrine: no symptoms reported Musculoskeletal: arthralgia Physical Exam - Physical Exam Vital Signs: Vital Signs 01/04/19 22:32 Temperature 97.5 F L Pulse Rate 89 Respiratory 16 Rate Blood Pressure 135/77 O2 Sat by Pulse 97 Oximetry Physical Exam: GENERAL: The patient is well-developed well-nourished male sitting in wheelchair not appearing to be in acute distress. [] HEENT: Normocephalic. Atraumatic. Extraocular motions are intact. Patient has moist mucous membranes. NECK: Supple. Trachea midline. No axial step off CHEST/LUNGS: Clear to auscultation. There is no respiratory distress noted. HEART/CARDIOVASCULAR: Regular. There is no tachycardia. There is no gallop rub or murmur. ABDOMEN: Abdomen is soft, nontender. Patient has normal bowel sounds. There is no abdominal distention. SKIN: There is no rash. There is no edema. There is no diaphoresis. NEURO: The patient is awake, alert, and oriented. The patient is cooperative. The patient has no focal neurologic deficits. The patient has normal speech MUSCULOSKELETAL: There is no evidence of acute injury. ED Course Vital Signs 01/04/19 22:32 Temperature 97.5 F L Pulse Rate 89 Respiratory 16 Rate Blood Pressure 135/77 O2 Sat by Pulse 97 Oximetry ED Medical Decision Making - Lab Data Result diagrams: 01/04/19 22:59 01/05/19 05:02 Laboratory Tests 01/04/19 01/04/19 01/04/19 22:59 22:59 22:59 WBC 6.4 RBC 3.88 Hgb 14.2 Hct 38.9 MCV 100 H MCH 37 H MCHC 37 H RDW 16.2 H Plt Count 317 Baso % (Auto) First Dyer Add Manual Diff Complete Total Counted 100 Seg Neuts % (Manual) 71.0 H Band Neutrophils % 0 Lymphocytes % (Manual) 18.0 Reactive Lymphs % (Man) 0 Monocytes % (Manual) 11.0 H Eosinophils % (Manual) 0 Basophils % (Manual) 0 Metamyelocytes % 0 Myelocytes % 0 Promyelocytes % 0 Blast Cells % 0 Nucleated RBC % Not Reportable Seg Neutrophils # Man 4.5 Band Neutrophils # 0.0 Lymphocytes # (Manual) 1.2 Abs React Lymphs (Man) 0.0 Monocytes # (Manual) 0.7 Eosinophils # (Manual) 0.0 Basophils # (Manual) 0.0 Metamyelocytes # 0.0 Myelocytes # 0.0 Promyelocytes # 0.0 Blast Cells # 0.0 WBC Morphology Not Reportable Hypersegmented Neuts Not Reportable Hyposegmented Neuts Not Reportable Hypogranular Neuts Not Reportable Smudge Cells Not Reportable Toxic Granulation Not Reportable Toxic Vacuolation Not Reportable Dohle Bodies Not Reportable Pelger-Huet Anomaly Not Reportable Lana Rods Not Reportable Platelet Estimate Consistent w auto Clumped Platelets Not Reportable Plt Clumps, EDTA Not Reportable Large Platelets Not Reportable Giant Platelets Not Reportable Platelet Satelliting Not Reportable Plt Morphology Comment Not Reportable RBC Morphology Not Reportable Dimorphic RBCs Not Reportable Polychromasia Not Reportable Hypochromasia Not Reportable Poikilocytosis Not Reportable Anisocytosis 1+ Microcytosis Not Reportable Macrocytosis Not Reportable Spherocytes Not Reportable Pappenheimer Bodies Not Reportable Sickle Cells Not Reportable Target Cells Not Reportable Tear Drop Cells Not Reportable Ovalocytes Not Reportable Helmet Cells Not Reportable Alfonso-Baskin Bodies Not Reportable [place] Rings Not Reportable [place] Cells Not Reportable Bite Cells Not Reportable Crenated Cell Not Reportable Elliptocytes Not Reportable Acanthocytes (Spur) Not Reportable Rouleaux Not Reportable Hemoglobin C Crystals Not Reportable Schistocytes Not Reportable Malaria parasites Not Reportable Shahzad Bodies Not Reportable Hem Pathologist Commnt No Sodium 124 L Potassium 5.9 H Chloride 87.9 L Carbon Dioxide 24 Anion Gap 18 BUN 9 Creatinine 0.8 Estimated GFR > 60 BUN/Creatinine Ratio 11 Glucose 76 Calcium 8.7 Total Bilirubin 0.30 AST 75 H ALT 28 Alkaline Phosphatase 101 Troponin T < 0.010 Total Protein 7.1 Albumin 3.9 Albumin/Globulin Ratio 1.2 Urine Color Urine Turbidity Urine pH Ur Specific [place] Urine Protein Urine Glucose (UA) Urine Ketones Urine Blood Urine Nitrite Urine Bilirubin Urine Urobilinogen Ur Leukocyte Esterase Urine WBC (Auto) Urine RBC (Auto) Salicylates < 0.3 L Urine Opiates Screen Urine Methadone Screen Acetaminophen Ur Barbiturates Screen Phenytoin Ur Phencyclidine Scrn Ur Amphetamines Screen U Benzodiazepines Scrn Urine Cocaine Screen U Marijuana (THC) Screen Drugs of Abuse Note Plasma/Serum Alcohol 01/04/19 01/04/19 01/05/19 22:59 22:59 01:23 WBC RBC Hgb Hct MCV MCH MCHC RDW Plt Count Baso % (Auto) Add Manual Diff Total Counted Seg Neuts % (Manual) Band Neutrophils % Lymphocytes % (Manual) Reactive Lymphs % (Man) Monocytes % (Manual) Eosinophils % (Manual) Basophils % (Manual) Metamyelocytes % Myelocytes % Promyelocytes % Blast Cells % Nucleated RBC % Seg Neutrophils # Man Band Neutrophils # Lymphocytes # (Manual) Abs React Lymphs (Man) Monocytes # (Manual) Eosinophils # (Manual) Basophils # (Manual) Metamyelocytes # Myelocytes # Promyelocytes # Blast Cells # WBC Morphology Hypersegmented Neuts Hyposegmented Neuts Hypogranular Neuts Smudge Cells Toxic Granulation Toxic Vacuolation Dohle Bodies Pelger-Huet Anomaly Lana Rods Platelet Estimate Clumped Platelets Plt Clumps, EDTA Large Platelets Giant Platelets Platelet Satelliting Plt Morphology Comment RBC Morphology Dimorphic RBCs Polychromasia Hypochromasia Poikilocytosis Anisocytosis Microcytosis Macrocytosis Spherocytes Pappenheimer Bodies Sickle Cells Target Cells Tear Drop Cells Ovalocytes Helmet Cells Alfonso-Baskin Bodies [place] Rings [place] Cells Bite Cells Crenated Cell Elliptocytes Acanthocytes (Spur) Rouleaux Hemoglobin C Crystals Schistocytes Malaria parasites Shahzad Bodies Hem Pathologist Commnt Sodium 126 L Potassium 4.3 D Chloride 87.8 L Carbon Dioxide 25 Anion Gap 18 BUN 11 Creatinine 0.8 Estimated GFR > 60 BUN/Creatinine Ratio 14 Glucose 86 Calcium 9.2 Total Bilirubin AST ALT Alkaline Phosphatase Troponin T Total Protein Albumin Albumin/Globulin Ratio Urine Color Urine Turbidity Urine pH Ur Specific [place] Urine Protein Urine Glucose (UA) Urine Ketones Urine Blood Urine Nitrite Urine Bilirubin Urine Urobilinogen Ur Leukocyte Esterase Urine WBC (Auto) Urine RBC (Auto) Salicylates Urine Opiates Screen Urine Methadone Screen Acetaminophen < 5.0 L Ur Barbiturates Screen Phenytoin Ur Phencyclidine Scrn Ur Amphetamines Screen U Benzodiazepines Scrn Urine Cocaine Screen U Marijuana (THC) Screen Drugs of Abuse Note Plasma/Serum Alcohol 0.14 H 01/05/19 01/05/19 01/05/19 02:40 02:40 05:02 WBC RBC Hgb Hct MCV MCH MCHC RDW Plt Count Baso % (Auto) Add Manual Diff Total Counted Seg Neuts % (Manual) Band Neutrophils % Lymphocytes % (Manual) Reactive Lymphs % (Man) Monocytes % (Manual) Eosinophils % (Manual) Basophils % (Manual) Metamyelocytes % Myelocytes % Promyelocytes % Blast Cells % Nucleated RBC % Seg Neutrophils # Man Band Neutrophils # Lymphocytes # (Manual) Abs React Lymphs (Man) Monocytes # (Manual) Eosinophils # (Manual) Basophils # (Manual) Metamyelocytes # Myelocytes # Promyelocytes # Blast Cells # WBC Morphology Hypersegmented Neuts Hyposegmented Neuts Hypogranular Neuts Smudge Cells Toxic Granulation Toxic Vacuolation Dohle Bodies Pelger-Huet Anomaly Lana Rods Platelet Estimate Clumped Platelets Plt Clumps, EDTA Large Platelets Giant Platelets Platelet Satelliting Plt Morphology Comment RBC Morphology Dimorphic RBCs Polychromasia Hypochromasia Poikilocytosis Anisocytosis Microcytosis Macrocytosis Spherocytes Pappenheimer Bodies Sickle Cells Target Cells Tear Drop Cells Ovalocytes Helmet Cells Alfonso-Baskin Bodies [place] Rings [place] Cells Bite Cells Crenated Cell Elliptocytes Acanthocytes (Spur) Rouleaux Hemoglobin C Crystals Schistocytes Malaria parasites Shahzad Bodies Hem Pathologist Commnt Sodium 132 L Potassium Chloride Carbon Dioxide Anion Gap BUN Creatinine Estimated GFR BUN/Creatinine Ratio Glucose Calcium Total Bilirubin AST ALT Alkaline Phosphatase Troponin T Total Protein Albumin Albumin/Globulin Ratio Urine Color Yellow Urine Turbidity Clear Urine pH 6.0 Ur Specific [place]man 1.010 Urine Protein <15 mg/dl Urine Glucose (UA) Neg Urine Ketones Neg Urine Blood Neg Urine Nitrite Neg Urine Bilirubin Neg Urine Urobilinogen < 2.0 Ur Leukocyte Esterase Neg Urine WBC (Auto) 1.0 Urine RBC (Auto) 1.0 Salicylates Urine Opiates Screen Presumptive negative Urine Methadone Screen Presumptive negative Acetaminophen Ur Barbiturates Screen Presumptive negative Phenytoin Ur Phencyclidine Scrn Presumptive negative Ur Amphetamines Screen Presumptive negative U Benzodiazepines Scrn Presumptive negative Urine Cocaine Screen Presumptive negative U Marijuana (THC) Screen Presumptive negative Drugs of Abuse Note Disclamer Plasma/Serum Alcohol 01/05/19 Unknown WBC RBC Hgb Hct MCV MCH MCHC RDW Plt Count Baso % (Auto) Add Manual Diff Total Counted Seg Neuts % (Manual) Band Neutrophils % Lymphocytes % (Manual) Reactive Lymphs % (Man) Monocytes % (Manual) Eosinophils % (Manual) Basophils % (Manual) Metamyelocytes % Myelocytes % Promyelocytes % Blast Cells % Nucleated RBC % Seg Neutrophils # Man Band Neutrophils # Lymphocytes # (Manual) Abs React Lymphs (Man) Monocytes # (Manual) Eosinophils # (Manual) Basophils # (Manual) Metamyelocytes # Myelocytes # Promyelocytes # Blast Cells # WBC Morphology Hypersegmented Neuts Hyposegmented Neuts Hypogranular Neuts Smudge Cells Toxic Granulation Toxic Vacuolation Dohle Bodies Pelger-Huet Anomaly Lana Rods Platelet Estimate Clumped Platelets Plt Clumps, EDTA Large Platelets Giant Platelets Platelet Satelliting Plt Morphology Comment RBC Morphology Dimorphic RBCs Polychromasia Hypochromasia Poikilocytosis Anisocytosis Microcytosis Macrocytosis Spherocytes Pappenheimer Bodies Sickle Cells Target Cells Tear Drop Cells Ovalocytes Helmet Cells Alfonso-Baskin Bodies [place] Rings [place] Cells Bite Cells Crenated Cell Elliptocytes Acanthocytes (Spur) Rouleaux Hemoglobin C Crystals Schistocytes Malaria parasites Shahzad Bodies Hem Pathologist Commnt Sodium Potassium Chloride Carbon Dioxide Anion Gap BUN Creatinine Estimated GFR BUN/Creatinine Ratio Glucose Calcium Total Bilirubin AST ALT Alkaline Phosphatase Troponin T Total Protein Albumin Albumin/Globulin Ratio Urine Color Urine Turbidity Urine pH Ur Specific [place]man Urine Protein Urine Glucose (UA) Urine Ketones Urine Blood Urine Nitrite Urine Bilirubin Urine Urobilinogen Ur Leukocyte Esterase Urine WBC (Auto) Urine RBC (Auto) Salicylates Urine Opiates Screen Urine Methadone Screen Acetaminophen Ur Barbiturates Screen Phenytoin 1.2 L Ur Phencyclidine Scrn Ur Amphetamines Screen U Benzodiazepines Scrn Urine Cocaine Screen U Marijuana (THC) Screen Drugs of Abuse Note Plasma/Serum Alcohol - Radiology Data Radiology results: report reviewed (CT head, CT cervical spine), image reviewed (CT head, CT cervical spine, left hip x-ray) interpreted by me: Left hip x-ray-no acute fractures. Prosthesis in place [facility] [address] [place] [address] Cat Scan Report Signed Patient: ANDREW RASHID MR#: [id number] : 1955 Acct:[id number] Age/Sex: 63 / M ADM Date: 01/04/19 Loc: ED Attending Dr: Ordering Physician: SANGITA COBOS MD Date of Service: 01/05/19 Procedure(s): CT cervical spine wo con Accession Number(s): [id number] cc: SANGITA COBOS MD CT CERVICAL SPINE WITHOUT CONTRAST INDICATION: pain after seizure TECHNIQUE: All CT scans at this location are performed using CT dose reduction for ALARA by means of automated exposure control. Axial CT images were obtained through the cervical spine. Sagittal and coronal reformatted images were produced. COMPARISON: None available. Cervical spine findings: Prominent cervical degene rative changes are noted. Prominent disc space narrowing is seen at C5-6 and C6- 7. Slight anterolisthesis at C5-6 and probably related to degenerative change. Degenerative changes are seen at C3-4 with slight retrolisthesis and moderate disc space narrowing. Multiple anterior osteophytes are seen and small posterior osteophytes are noted at C6-7. Mild facet arthritic changes are seen. C1 to arthritic changes are noted. No obvious disc herniation is seen. No fractures are noted. Additional findings: None. IMPRESSION: No acute findings. Signer Name: Wesley So MD Signed: 01/05/2019 3:15 AM Workstation Name: [id number] Transcribed By: GJ Dictated By: Wesley So MD Electronically A uthenticated By: Wesley So MD Signed Date/Time: 01/05/19314 DD/ 9 TD/TT: [facility] [address] [place] [address] Cat Scan Report Signed Patient: ANDREW RASHID MR#: [id number] : 1955 Acct:[id number] Age/Sex: 63 / M ADM Date: 01/04/19 Loc: ED Attending Dr: Ordering Physician: JEFFREY MADISON NP Date of Service: 01/04/19 Procedure(s): CT head/brain wo con Accession Number(s): [id number] cc: JEFFREY MADISON NP CT HEAD WITHOUT CONTRAST INDICATION: Seizure TECHNIQUE: All CT scans at this location a re performed using CT dose reduction for ALARA by means of automated exposure control. COMPARISON: 06/22/2018 FINDINGS: BRAIN: No hemorrhage or mass effect are seen. No evidence of acute infarction is noted. Mild white matter microvascular changes are noted. ORBITS: Normal as visualized. SOFT TISSUES OF HEAD: Normal. CALVARIUM: Normal. VISUALIZED PARANASAL SINUSES AND MASTOID AIR CELLS: Visualized sinuses are clear. Right mastoid thickening is unchanged. ADDITIONAL FINDINGS: None. IMPRESSION: No acute intracranial abnormality. Signer Name: Wesley So MD Signed: 01/05/2019 1:03 AM Workstation Name: [id number] Transcribed By: HOSSEIN Dictated By: Wesley So MD Electronically Authentica sun By: Wesley So MD Signed Date/Time: 01/05/19 0103 DD/ 0058 TD/TT: [facility] [address] [place] [address] XRay Report Signed Patient: ANDREW RASHID MR#: [id number] : 1955 Acct:[id number] Age/Sex: 63 / M ADM Date: 01/04/19 Loc: ED Attending Dr: Ordering Physician: SANGITA COBOS MD Date of Service: 01/05/19 Procedure(s): XR hip 2-3V LT Accession Number(s): [id number] cc: SANGITA COBOS MD Fluoro Time In Minutes: LEFT HIP 3 VIEWS 0126 INDICATION: pain after seizure COMPARISON: None available. FINDINGS: Mild lower lumbar degenerative changes are seen. Left hip prosthesis is noted. No fractures or dislocations are seen. Signer Name: Wesley So MD Signed: 01/05/2019 3:25 AM Workstation Name: [id number] Transcribed By: HOSSEIN Dictated By: Wesley So MD Electronically Authenticated By: Joaquina So MD Signed Date/Time: 01/05/19324 DD/ 3 TD/TT: - Differential Diagnosis seizure disorder Critical care attestation.: If time is entered above; I have spent that time in minutes in the direct care of this critically ill patient, excluding procedure time. ED Disposition Clinical Impression: Seizure, Acute cervical myofascial strain, Hyponatremia Disposition: -01 TO HOME OR SELFCARE Is pt being admited?: No Does the pt Need Aspirin: No Condition: Stable Instructions: Muscle Strain (ED) Additional Instructions: Return to the emergency department should you develop worsening symptoms, inability to tolerate food or liquids, high fever or any other concerns Prescriptions: Phenytoin [Dilantin] 100 mg PO Q8HR #90 capsule Referrals: PRIMARY CAREMD [Primary Care Provider] - 3-5 Days FELICITA SANTANA MD [Staff Physician] - 3-5 Days Time of Disposition: 05:42
[2019-01-05 01:58] LABS: BUN/Creatinine Ratio 14; Blood Urea Nitrogen 11 mg/dL (9-20); Calcium 9.2 mg/dL (8.4-10.2); Hemolysis Index 72
[2019-01-05] MEDS ORDERED: FOSPHENYTOIN 1,000 MG.PE in SODIUM CHLORIDE 0.9% 100 ML IV ONE (02:45)
--- NOTE | 2019-01-05 03:19 | Cat Scan Report ---
CT CERVICAL SPINE WITHOUT CONTRAST INDICATION: pain after seizure TECHNIQUE: All CT scans at this location are performed using CT dose reduction for ALARA by means of automated exposure control. Axial CT images were obtained through the cervical spine. Sagittal and co farshad reformatted images were produced. COMPARISON: None available. Cervical spine findings: Prominent cervical degenerative changes are noted. Prominent disc space narr owing is seen at C5-6 and C6-7. Slight anterolisthesis at C5-6 and probably related to degenerative c hange. Degenerative changes are seen at C3-4 with slight retrolisthesis and moderate disc space narro wing. Multiple anterior osteophytes are seen and small posterior osteophytes are noted at C6-7. Mild facet arthritic changes are seen. C1 to arthritic changes are noted. No obvious disc herniation is se en. No fractures are noted. Additional findings: None. IMPRESSION: No acute findings. Signer Name: Wesley So MD Signed: 01/05/2019 3:15 AM Workstation Name: [id number]
[2019-01-05 03:21] LABS: Bilirubin,Urine NEG (Negative); Blood,Urine NEG (Negative); Color,Urine Yellow (Yellow); Protein,Urine <15 mg/dL mg/dL (Negative); Urobilinogen,Urine < 2.0 mg/dL (<2.0)
[2019-01-05 03:28] LABS: Amphetamine Screen,Urine PRESUMPTIVE NEGATIVE; Benzodiazepines Screen,Urine PRESUMPTIVE NEGATIVE; Cannabinoid Screen,Urine PRESUMPTIVE NEGATIVE; Cocaine Screen,Urine PRESUMPTIVE NEGATIVE; Methadone Screen,Urine PRESUMPTIVE NEGATIVE; Opiate Screen,Urine PRESUMPTIVE NEGATIVE
--- NOTE | 2019-01-05 03:29 | XRay Report ---
LEFT HIP 3 VIEWS 0126 INDICATION: pain after seizure COMPARISON: None available. FINDINGS: Mild lower lumbar degenerative changes are seen. Left hip prosthesis is noted. No fractures or dislocations are seen. Signer Name: Wesley So MD Signed: 01/05/2019 3:25 AM Workstation Name: [id number]
[2019-01-05 03:58] LABS: Anisocytosis 1+; Basophils % (Manual) 0 % (0.0-1.8); Eosinophils % (Manual) 0 % (0.0-4.3); Platelet Estimate Consistent w Auto; Total Cells Counted 100
[2019-01-05 05:32] VITALS: BP 138/72
== END 2019-01-05 06:00 | disposition home or self-care (01) ==
LOC: ED 22:02
DX: S16.1XXA Strain of muscle, fascia and tendon at neck level, initial encounter (principal); E87.1 Hypo-osmolality and hyponatremia; M25.552 Pain in left hip; R56.9 Unspecified convulsions; I10 Essential (primary) hypertension; F41.9 Anxiety disorder, unspecified; F17.200 Nicotine dependence, unspecified, uncomplicated; Z79.899 Other long term (current) drug therapy; Z98.890 Other specified postprocedural states; Z88.8 Allergy status to other drugs, medicaments and biological substances; Z91.14 Patient's other noncompliance with medication regimen; X58.XXXA Exposure to other specified factors, initial encounter; Y93.89 Activity, other specified; Y92.89 Other specified places as the place of occurrence of the external cause; Y99.8 Other external cause status
CPT/HCPCS: 36415; 70450; 72125; 73502; 80048; 80053; 80185; 80307; 81001; 84295; 84484; 85007; 85025; 93005; 93010; 96365; 96366; 99285; J7030; Q2009; 80320; G0480

== ENCOUNTER 2019-01-05 21:27 | Emergency (ER) | payer SELFPAY ==
[2019-01-06] MEDS ORDERED: PHENYTOIN 100 MG CAPSULE.ER PO ONE (00:11)
--- NOTE | 2019-01-06 00:14 | Emergency Department Report ---
HPI - General Chief Complaint: Fall Time Seen by Provider: 01/06/19 00:05 - HPI HPI: Room 19 The patient is a 63-year-old male presenting with a chief complaint of headache after seizure and fall. The patient states just prior to arrival he had a seizu re and fell striking the right side of his head. Patient complains of having a swollen area to the right side of his head and right-sided headache. Location: [See above] Duration: [See above] Quality: [See above] Severity: [See above] Timing: [See above] Context: [See above] Modifying factors: [See above] Associated signs and symptoms: [see above] ED Past Medical Hx - Past Medical History Hx Hypertension: Yes Hx Seizures: Yes Hx Psychiatric Treatment: Yes (anxiety psychosis) Additional medical history: Other Hx is unclear - Surgical History Past Surgical History?: No Additional Surgical History: R knee surgery, left lung injury - Family History Family history: no significant - Social History Smoking Status: Never Smoker Substance Use Type: None - Medications Home Medications: Home Medications Medication Instructions Recorded Confirmed Last Taken Type Folic Acid [Folvite] 1 mg PO DAILY #30 tablet 03/24/17 01/01/18 Unknown Rx Atenolol [Tenormin] 50 mg PO QDAY #30 tablet 12/30/17 01/01/18 Unknown Rx Multivitamin Tab [Multiple Vitamin 1 each PO DAILY #30 tablet 12/30/17 01/01/18 Unknown Rx TAB (Theragran)] Thiamine [Vitamin B-1] 100 mg PO QDAY #30 tablet 12/30/17 01/01/18 Unknown Rx amLODIPine 5 mg PO QDAY #30 tablet 12/30/17 01/01/18 Unknown Rx Phenytoin Sodium Extended 400 mg PO QHS #120 capsule 01/04/18 Unknown Rx [Dilantin] Phenytoin [Dilantin] 100 mg PO Q8HR #90 capsule 01/05/19 Unknown Rx Ibuprofen [Motrin 800 MG tab] 800 mg PO Q8HR PRN #10 tablet 01/06/19 Unknown Rx ED Review of Systems ROS: Stated complaint: FELL Other details as noted in HPI Neurological: headache Physical Exam - Physical Exam Vital Signs: Vital Signs 01/05/19 21:32 Temperature 98.5 F Pulse Rate 93 H Respiratory 20 Rate Blood Pressure 107/71 O2 Sat by Pulse 97 Oximetry Physical Exam: GENERAL: The patient is well-developed well-nourished male lying on stretcher not appearing to be in acute distress. [] HEENT: Normocephalic. Approximately 1 cm pome the right parietal region. Extraocular motions are intact. Patient has moist mucous membranes. NECK: Supple. Trachea midline CHEST/LUNGS: Clear to auscultation. There is no respiratory distress noted. HEART/CARDIOVASCULAR: Regular. There is no tachycardia. There is no gallop rub or murmur. ABDOMEN: Abdomen is soft, nontender. Patient has normal bowel sounds. There is no abdominal distention. SKIN: There is no rash. There is no edema. There is no diaphoresis. NEURO: The patient is awake, alert, and oriented. The patient is cooperative. The patient has no focal neurologic deficits. The patient has normal speech. Cranial nerves II through XII grossly intact, no drift MUSCULOSKELETAL: There is no evidence of acute injury. ED Course Vital Signs 01/05/19 21:32 Temperature 98.5 F Pulse Rate 93 H Respiratory 20 Rate Blood Pressure 107/71 O2 Sat by Pulse 97 Oximetry ED Medical Decision Making - Radiology Data Radiology results: report reviewed (CT head), image reviewed (CT head) [facility] [address] [place] [address] Cat Scan Report Signed Patient: ANDREW RASHID MR#: [id number] : 1955 Acct:[id number] Age/Sex: 63 / M ADM Date: 01/05/19 Loc: ED Attending Dr: Ordering Physician: SANGITA COBOS MD Date of Service: 01/06/19 Procedure(s): CT head/brain wo con Accession Number(s): [id number] cc: SANGITA COBOS MD CT HEAD WITHOUT CONTRAST INDICATION / CLINICAL INFORMATION: R sided headache after seizure and fall. TECHNIQUE: All CT scans at this location are performed using CT dose reduction for ALARA by means of automated exposure control. COMPARISON: CT dated 01/05/19 FINDINGS: HEMORRHAGE: None. EXTRA-AXIAL SPACES: Normal in size and morphology for the patient's age. VENTRICULAR SYSTEM: Normal in size and morphology for the patient's age. CEREBRAL PARENCHYMA: No significant abnormality. No acute territorial infarct. MIDLINE SHIFT OR HERNIATION: None. CEREBELLUM / BRAINSTEM: No significant abnormality. ORBITS: Normal as visualized. SOFT TISSUES of HEAD: No significant abnormality. CALVARIUM: No significant abnormality. PARANASAL SINUSES / MASTOID AIR CELLS: Normal as visualized. ADDITIONAL FINDINGS: None. IMPRESSION: 1. No acute intracranial abnormality. No significant change. Signer Name: Jason Dean MD Signed: 01/06/2019 1:18 AM Workstation Name: [id number] Transcribed By: DT Dictated By: Brennan Dean MD Electronically Authenticated By: Brennan Dean MD Signed Date/Time: 01/06/19117 DD/ 2 TD/TT: - Differential Diagnosis closed head injury, ICH, Critical care attestation.: If time is entered above; I have spent that time in minutes in the direct care of this critically ill patient, excluding procedure time. ED Disposition Clinical Impression: Closed head injury, Seizures Disposition: - TO HOME OR SELFCARE Is pt being admited?: No Does the pt Need Aspirin: No Condition: Stable Additional Instructions: Return to the emergency department should you develop worsening symptoms, inability to tolerate food or liquids, high fever or any other concerns Prescriptions: Ibuprofen [Motrin 800 MG tab] 800 mg PO Q8HR PRN #10 tablet PRN Reason: Pain , Severe (7-10) Referrals: PRIMARY CARE, [Primary Care Provider] - 3-5 Days Time of Disposition: 01:30
[2019-01-06] MEDS ORDERED: HYDROcodone/ACETAMINOPHEN 5-325 MG TAB PO ONE (00:59)
--- NOTE | 2019-01-06 01:23 | Cat Scan Report ---
CT HEAD WITHOUT CONTRAST INDICATION / CLINICAL INFORMATION: R sided headache after seizure and fall. TECHNIQUE: All CT scans at this location are performed using CT dose reduction for ALARA by means of automated e xposure control. COMPARISON: CT dated 01/05/19 FINDINGS: HEMORRHAGE: None. EXTRA-AXIAL SPACES: Normal in size and morphology for the patient's age. VENTRICULAR SYSTEM: Normal in size and morphology for the patient's age. CEREBRAL PARENCHYMA: No significant abnormality. No acute territorial infarct. MIDLINE SHIFT OR HERNIATION: None. CEREBELLUM / BRAINSTEM: No significant abnormality. ORBITS: Normal as visualized. SOFT TISSUES of HEAD: No significant abnormality. CALVARIUM: No significant abnormality. PARANASAL SINUSES / MASTOID AIR CELLS: Normal as visualized. ADDITIONAL FINDINGS: None. IMPRESSION: 1. No acute intracranial abnormality. No significant change. Signer Name: Jason Dean MD Signed: 01/06/2019 1:18 AM Workstation Name: [id number]
[2019-01-06 02:59] VITALS: BP 114/54
== END 2019-01-06 02:00 | disposition home or self-care (01) ==
LOC: ED 21:27
DX: S09.90XA Unspecified injury of head, initial encounter (principal); R56.9 Unspecified convulsions; F41.9 Anxiety disorder, unspecified; I10 Essential (primary) hypertension; F29 Unspecified psychosis not due to a substance or known physiological condition; Z98.890 Other specified postprocedural states; Z88.1 Allergy status to other antibiotic agents; W19.XXXA Unspecified fall, initial encounter; Y93.89 Activity, other specified; Y92.89 Other specified places as the place of occurrence of the external cause; Y99.8 Other external cause status
CPT/HCPCS: 70450

== ENCOUNTER 2019-01-12 04:10 | Inpatient (IN) | payer SELFPAY ==
[2019-01-12] MEDS ORDERED: KETOROLAC 30 MG/1 ML INJ IV ONE (05:38)
--- NOTE | 2019-01-12 05:46 | Event Note ---
ED Screening Note Date of service: 01/12/19 Time: 05:41 ED Screening Note: This initial assessment/diagnostic orders/clinical plan/treatment(s) is/are subject to change based on patients health status, clinical progression and re- assessment by fellow clinical providers in the ED. Further treatment and workup at subsequent clinical providers discretion. Patient/guardian urged not to elope from the ED as their condition may be serious if not clinically assessed and managed. Patient is a 63-year-old male with a past history of seizures who is presenting status post seizure. Patient states that he did fall is a and has neck pain. Patient takes Dilantin. Initial orders include: To the head and C-spine been ordered secondary to the patient's fall. Electrolytes and Dilantin level is been ordered.
[2019-01-12 05:54] LABS: Basophils # (Auto) 0.1 K/mm3 (0.0-0.1); Basophils % (Auto) 1.7 % (0.0-1.8); Eosinophils # (Auto) 0.1 K/mm3 (0.0-0.4); Eosinophils % (Auto) 1.7 % (0.0-4.3); Hemoglobin 14.2 gm/dl (11.8-15.2); Lymphocytes # (Auto) 0.9 K/mm3 (1.2-5.4); Lymphocytes % (Auto) 18.4 % (13.4-35.0); Mean Corpuscular HGB Conc 35 % (32-34); Mean Corpuscular Volume 100 fl (84-94); Monocytes # (Auto) 0.8 K/mm3 (0.0-0.8); Monocytes % (Auto) 15.8 % (0.0-7.3); Platelet Count 265 K/mm3 (140-440); Red Cell Distribution Width 15.5 % (13.2-15.2)
[2019-01-12 06:11] LABS: BUN/Creatinine Ratio 16; Blood Urea Nitrogen 8 mg/dL (9-20); Calcium 8.6 mg/dL (8.4-10.2); Hemolysis Index 5
--- NOTE | 2019-01-12 06:59 | Cat Scan Report ---
CT HEAD WITHOUT CONTRAST INDICATION / CLINICAL INFORMATION: Seizure with fall c/o pain. TECHNIQUE: All CT scans at this location are performed using CT dose reduction for ALARA by means of automated e xposure control. COMPARISON: CT dated 01/06/19 FINDINGS: HEMORRHAGE: None. EXTRA-AXIAL SPACES: Normal in size and morphology for the patient's age. VENTRICULAR SYSTEM: Normal in size and morphology for the patient's age. CEREBRAL PARENCHYMA: No significant abnormality. No acute territorial infarct. MIDLINE SHIFT OR HERNIATION: None. CEREBELLUM / BRAINSTEM: No significant abnormality. ORBITS: Normal as visualized. SOFT TISSUES of HEAD: No significant abnormality. CALVARIUM: No significant abnormality. PARANASAL SINUSES / MASTOID AIR CELLS: Normal as visualized. ADDITIONAL FINDINGS: None. IMPRESSION: 1. No acute intracranial abnormality. No significant change. Signer Name: Jason Dean MD Signed: 01/12/2019 6:55 AM Workstation Name: [id number]
--- NOTE | 2019-01-12 07:02 | Cat Scan Report ---
CT CERVICAL SPINE WITHOUT CONTRAST INDICATION / CLINICAL INFORMATION: Patient states he had a seizure with fall and injured his head & neck.. TECHNIQUE: Axial CT images were obtained through the cervical spine. Sagittal and coronal reformatted images wer e produced. All CT scans at this location are performed using CT dose reduction for ALARA by means of automated exposure control. COMPARISON: CT dated 01/05/19 FINDINGS: VERTEBRAE: No significant abnormality. ALIGNMENT: No significant abnormality. DISC SPACES: Mild multilevel disc space narrowing, unchanged. FACET JOINTS: No significant abnormality. CRANIOCERVICAL JUNCTION:No significant abnormality. SPINAL CANAL: No significant abnormality. PARASPINAL SOFT TISSUES: No significant abnormality. ADDITIONAL FINDINGS: None. LUNG APICES: No significant abnormality of visualized lungs. IMPRESSION: 1. No acute abnormality. No significant change. Signer Name: Jason Dean MD Signed: 01/12/2019 6:57 AM Workstation Name: [id number]
[2019-01-12] MEDS ORDERED: SODIUM CHLORIDE 0.9% 1000 ML 1,000 ML IV ONE ×2 (07:11)
[2019-01-12] MEDS ORDERED: PHENYTOIN 100 MG/4 ML ORAL.LIQD PO ONE (08:00)
--- NOTE | 2019-01-12 09:14 | Emergency Department Report ---
ED Seizure HPI - General Chief Complaint: Seizure Stated Complaint: SYNCOPE/SEIZURE Time Seen by Provider: 01/12/19 05:47 Source: patient Mode of arrival: Ambulatory Limitations: No Limitations, Altered Mental Status (seizure reported) - History of Present Illness Initial Comments: Patient reports he had a seizure and fell. Hx seizures and noncompliant with medications Complaint: seizure Description of Episode: tonic-clonic movement Seizure History: history of non-compliance Possible Precipitating Event: head injury Associated Symptoms: denies other symptoms - Related Data Previous Rx's Medication Instructions Recorded Last Taken Type Folic Acid [Folvite] 1 mg PO DAILY #30 tablet 03/24/17 Unknown Rx Atenolol [Tenormin] 50 mg PO QDAY #30 tablet 12/30/17 Unknown Rx Multivitamin Tab [Multiple Vitamin 1 each PO DAILY #30 tablet 12/30/17 Unknown Rx TAB (Theragran)] Thiamine [Vitamin B-1] 100 mg PO QDAY #30 tablet 12/30/17 Unknown Rx amLODIPine 5 mg PO QDAY #30 tablet 12/30/17 Unknown Rx Phenytoin Sodium Extended 400 mg PO QHS #120 capsule 01/04/18 Unknown Rx [Dilantin] Phenytoin [Dilantin] 100 mg PO Q8HR #90 capsule 01/05/19 Unknown Rx Ibuprofen [Motrin 800 MG tab] 800 mg PO Q8HR PRN #10 tablet 01/06/19 Unknown Rx Allergies Allergy/AdvReac Type Severity Reaction Status Date / Time olanzapine [From Zyprexa] Allergy Nausea Verified 12/23/17 12:17 ED Review of Systems ROS: Stated complaint: SYNCOPE/SEIZURE Other details as noted in HPI Other: GENERAL: No weight change, fatigue, fever, chills, or night sweats SKIN: No changes in skin or hair, no itching, no rashes, no jaundice HEAD: No trauma EYES: No blurriness, tearing, itching, acute visual loss, conjunctival discoloration, or scleral icterus EARS: No hearing loss, tinnitus, vertigo, or earache NOSE: No rhinorrhea, stuffiness, sneezing, itching, or epistaxis MOUTH: No bleeding gums, hoarseness, sore throat, or swelling CARDIAC: No new murmur, chest pain, palpitations, dyspnea on exertion, orthopnea, PND, or edema RESPIRATORY: No shortness of breath, wheeze, cough, sputum production, hemoptysis GI: No nausea, vomiting, dysphagia, diarrhea, constipation, hematemesis, melena, hematochezia, or abdominal pain URINARY: No frequency, urgency, polyuria, dysuria, hematuria, or incontinence MUSCULOSKELETAL: No muscle weakness, joint stiffness, decrease in range of alok on, redness, swelling NEUROLOGIC: Seizure. No headache, syncope, loss of sensation, numbness, tingl ing, tremors, weakness, paralysis HEMATOLOGIC: No anemia, easy bruising, bleeding, petechiae, or purpura ENDOCRINE: No hot or cold intolerance, sweating, polyuria, polydipsia or, polyphagia no thyroid problems PSYCHIATRIC: No change in mood, no anxiety, no depression ED Past Medical Hx - Past Medical History Previous Medical History?: Yes Hx Hypertension: Yes Hx Seizures: Yes Hx Psychiatric Treatment: Yes (anxiety psychosis) Additional medical history: Other Hx is unclear - Surgical History Past Surgical History?: Yes Additional Surgical History: R knee surgery, left lung injury - Social History Smoking Status: Former Smoker Substance Use Type: None - Medications Home Medications: Home Medications Medication Instructions Recorded Confirmed Last Taken Type Folic Acid [Folvite] 1 mg PO DAILY #30 tablet 03/24/17 01/01/18 Unknown Rx Atenolol [Tenormin] 50 mg PO QDAY #30 tablet 12/30/17 01/01/18 Unknown Rx Multivitamin Tab [Multiple Vitamin 1 each PO DAILY #30 tablet 12/30/17 01/01/18 Unknown Rx TAB (Theragran)] Thiamine [Vitamin B-1] 100 mg PO QDAY #30 tablet 12/30/17 01/01/18 Unknown Rx amLODIPine 5 mg PO QDAY #30 tablet 12/30/17 01/01/18 Unknown Rx Phenytoin Sodium Extended 400 mg PO QHS #120 capsule 01/04/18 Unknown Rx [Dilantin] Phenytoin [Dilantin] 100 mg PO Q8HR #90 capsule 01/05/19 Unknown Rx Ibuprofen [Motrin 800 MG tab] 800 mg PO Q8HR PRN #10 tablet 01/06/19 Unknown Rx ED Physical Exam - General Limitations: No Limitations - Other Other exam information: GENERAL: Patient in no acute distress HEAD: Normocephalic, atraumatic EYES: PERRLA, EOM intact, no scleral icterus, no conjunctival hemorrhage, visual cabrera and acuity wnl NOSE: No tenderness, discharge, sinus tenderness MOUTH: No erythema, bleeding, exudate HEART: Regular rate and rhythm, no murmur, S1-S2 are auscultated, no edema, pulses are symmetric LUNGS: No respiratory distress. Bilateral breath sounds, No tachypnea, No retractions, No wheezing, rales, rhonchi ABDOMEN: Normal bowel sounds, abdomen soft, no tenderness, no rebound, no guarding, no distention, no masses, no CVA tenderness MUSCULOSKELETAL: Normal joint range of motion, no redness, no swelling, no tenderness NEUROLOGIC: GCS 15, Alert and Oriented x3, Cranial nerves intact, normal sensation, normal strength, no cerebellar deficit, NIHSS 0 SKIN: Skin is warm and dry, no wounds, no rashes ED Course Vital Signs 01/12/19 07:07 Respiratory 13 Rate O2 Sat by Pulse 97 Oximetry ED Medical Decision Making - Lab Data Result diagrams: 01/12/19 05:45 01/12/19 05:45 Laboratory Results - last 24 hr 01/12/19 01/12/19 01/12/19 05:45 05:45 05:45 WBC 4.8 RBC 4.00 Hgb 14.2 Hct 40.0 MCV 100 H MCH 35 H MCHC 35 H RDW 15.5 H Plt Count 265 Lymph % (Auto) 18.4 [place] % (Auto) 15.8 H Eos % (Auto) 1.7 Baso % (Auto) 1.7 Lymph # 0.9 L [place] # 0.8 Eos # 0.1 Baso # 0.1 Seg Neutrophils % 62.4 Seg Neutrophils # 3.0 Sodium 121 L Potassium 4.1 Chloride 86.9 L Carbon Dioxide 23 Anion Gap 15 BUN 8 L Creatinine 0.5 L Estimated GFR > 60 BUN/Creatinine Ratio 16 Glucose 90 Calcium 8.6 Phenytoin 0.9 L Plasma/Serum Alcohol 01/12/19 05:45 WBC RBC Hgb Hct MCV MCH MCHC RDW Plt Count Lymph % (Auto) [place] % (Auto) Eos % (Auto) Baso % (Auto) Lymph # [place] # Eos # Baso # Seg Neutrophils % Seg Neutrophils # Sodium Potassium Chloride Carbon Dioxide Anion Gap BUN Creatinine Estimated GFR BUN/Creatinine Ratio Glucose Calcium Phenytoin Plasma/Serum Alcohol 0.06 - Radiology Data Radiology results: report reviewed - Medical Decision Making Patient comfortable. Reports symptom improvement. Updated with results. Plan admit for further evaluation. Hospitalist updated and accepts admission. Critical care attestation.: If time is entered above; I have spent that time in minutes in the direct care of this critically ill patient, excluding procedure time. ED Disposition Clinical Impression: Hyponatremia, Seizures Disposition: OP ADMIT IP TO THIS HOSP Is pt being admited?: Yes Condition: Stable Referrals: WALLACE GOMEZ MD [Primary Care Provider] - 3-5 Days
[2019-01-12] MEDS ORDERED: ONDANSETRON 4 MG/2 ML INJ IV PRN ×2 (09:15→12:11)
[2019-01-12] MEDS ORDERED: ACETAMINOPHEN 325 MG TAB PO PRN (09:15)
--- NOTE | 2019-01-12 12:26 | History and Physical Report ---
History of Present Illness Date of examination: 01/12/19 Date of admission: 01/12/19 09:15 Chief complaint: Seizure History of present illness: 64-year-old man with past medical history significant for seizure, alcohol dependence, hypertension was presented to the emergency department complaining of seizure episode. Patient said he had seizure episode last night, he fell and hit his neck. Currently patient doesn't have any complaints. In the emergency department, patient has hyponatremia and low Dilantin level. patient said he was not taking dilantin for the last 2 months. REVIEW OF SYSTEMS: GENERAL: no weight change, no fatigue, no fever HEAD: no head ache EYES: no blurry vision, no acute visual loss EARS: no hearing loss, no discharge, no earache NOSE: no stuffiness, no sneezing, no discharge MOUTH, THROAT AND NECK: no bleeding gums, no sore throat, no swollen neck CARDIAC: no palpitations, no dyspnea on exertion, no orthopnea, no PND, no edema, no chest pain RESPIRATORY: no shortness of breath, no wheeze, no cough, no sputum, no hemoptysis, no asthma GI: no decreased appetite, no nausea, no vomiting, no dysphagia, no diarrhea, no constipation, no abdominal pain URINARY: No urgency, hematuria, dysuria or frequency. MUSCULOSKELETAL: no muscle weakness, no pain, no joint stiffness NEUROLOGIC: no loss of sensation/numbness, no tingling, no tremors, no weakness/paralysis HEMATOLOGIC: no anemia, no easy bruising SKIN: no rashes ENDOCRINE: no heat/cold intolerance, no polyuria, no polydipsia, no thyroid problems, no diabetes PSYCHIATRIC: no anxiety, no depression, no suicidal ideations Past History Past Medical History: hypertension, seizures Past Surgical History: total hip replacement Social history: smoking (1-2 cigarettes a day), alcohol abuse (2 ), full code. denies: prescription drug abuse, IV drug use Family history: other (No family history of seizures) Medications and Allergies Allergies Allergy/AdvReac Type Severity Reaction Status Date / Time olanzapine [From Zyprexa] Allergy Nausea Verified 12/23/17 12:17 Home Medications Medication Instructions Recorded Confirmed Last Taken Type Folic Acid [Folvite] 1 mg PO DAILY #30 tablet 03/24/17 01/01/18 Unknown Rx Atenolol [Tenormin] 50 mg PO QDAY #30 tablet 12/30/17 01/01/18 Unknown Rx Multivitamin Tab [Multiple Vitamin 1 each PO DAILY #30 tablet 12/30/17 01/01/18 Unknown Rx TAB (Theragran)] Thiamine [Vitamin B-1] 100 mg PO QDAY #30 tablet 12/30/17 01/01/18 Unknown Rx amLODIPine 5 mg PO QDAY #30 tablet 12/30/17 01/01/18 Unknown Rx Phenytoin Sodium Extended 400 mg PO QHS #120 capsule 01/04/18 Unknown Rx [Dilantin] Phenytoin [Dilantin] 100 mg PO Q8HR #90 capsule 01/05/19 Unknown Rx Ibuprofen [Motrin 800 MG tab] 800 mg PO Q8HR PRN #10 tablet 01/06/19 Unknown Rx Active Meds: Active Medications Acetaminophen (Tylenol) 650 mg PO Q4H PRN PRN Reason: Pain MILD(1-3)/Fever >100.5/CAAL Acetaminophen (Tylenol) 650 mg PO Q4H PRN PRN Reason: Pain MILD(1-3)/Fever >100.5/CAAL Amlodipine Besylate (Amlodipine) 5 mg PO QDAY DG Atenolol (Tenormin) 50 mg PO QDAY DG Docusate Sodium (Colace) 100 mg PO BID DG Famotidine (Pepcid) 20 mg PO BID DG Folic Acid (Folvite) 1 mg PO DAILY DG Sodium Chloride (Nacl 0.9% 1000 Ml) 1,000 mls @ 125 mls/hr IV DIRECT ONE Stop: 01/12/19 15:10 Last Admin: 01/12/19 08:20 Dose: 125 mls/hr Documented by: Sodium Chloride (Nacl 0.9% 1000 Ml) 1,000 mls @ 100 mls/hr IV DIRECT DG Multivitamins (Theragran Tab) 1 each PO DAILY DG Ondansetron HCl (Zofran) 4 mg IV Q8H PRN PRN Reason: Nausea And Vomiting Ondansetron HCl (Zofran) 4 mg IV Q8H PRN PRN Reason: Nausea And Vomiting Phenytoin (Dilantin) 100 mg PO Q8HR DG Phenytoin (Dilantin) 400 mg PO QHS [facility] Sodium Chloride (Sodium Chloride Flush Syringe 10 Ml) 10 ml IV BID DG Sodium Chloride (Sodium Chloride Flush Syringe 10 Ml) 10 ml IV PRN PRN PRN Reason: LINE FLUSH Sodium Chloride (Sodium Chloride Flush Syringe 10 Ml) 10 ml IV BID DG Sodium Chloride (Sodium Chloride Flush Syringe 10 Ml) 10 ml IV PRN PRN PRN Reason: LINE FLUSH Thiamine HCl (Vitamin B-1) 100 mg PO QDAY DG Exam - Physical Exam Narrative exam: Not in cardiopulmonary distress. The patient appeared well nourished and normally developed. Vital signs as documented. Head exam is unremarkable. No scleral icterus . Neck is without jugular venous distension, thyromegaly, or carotid bruits. Lungs are clear to auscultation. Cardiac exam reveals regular rate and Rhythm. Abdominal exam reveals normal bowel sounds, nontender, no organomegaly. Extremities are nonedematous and both femoral and pedal pulses are normal. 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 No focal weakness. - Constitutional Vitals: Temp Pulse Resp BP Pulse Ox 101 H 14 148/82 99 01/12/19 09:46 01/12/19 09:46 01/12/19 11:00 01/12/19 11:00 Results - Labs CBC & Chem 7: 01/12/19 05:45 01/12/19 05:45 Labs: Laboratory Last Values WBC 4.8 K/mm3 (4.5-11.0) 01/12/19 05:45 RBC 4.00 M/mm3 (3.65-5.03) 01/12/19 05:45 Hgb 14.2 gm/dl (11.8-15.2) 01/12/19 05:45 Hct 40.0 % (35.5-45.6) 01/12/19 05:45 MCV 100 fl (84-94) H 01/12/19 05:45 MCH 35 pg (28-32) H 01/12/19 05:45 MCHC 35 % (32-34) H 01/12/19 05:45 RDW 15.5 % (13.2-15.2) H 01/12/19 05:45 Plt Count 265 K/mm3 (140-440) 01/12/19 05:45 Lymph % (Auto) 18.4 % (13.4-35.0) 01/12/19 05:45 [place] % (Auto) 15.8 % (0.0-7.3) H 01/12/19 05:45 Eos % (Auto) 1.7 % (0.0-4.3) 01/12/19 05:45 Baso % (Auto) 1.7 % (0.0-1.8) 01/12/19 05:45 Lymph # 0.9 K/mm3 (1.2-5.4) L 01/12/19 05:45 [place] # 0.8 K/mm3 (0.0-0.8) 01/12/19 05:45 Eos # 0.1 K/mm3 (0.0-0.4) 01/12/19 05:45 Baso # 0.1 K/mm3 (0.0-0.1) 01/12/19 05:45 Seg Neutrophils % 62.4 % (40.0-70.0) 01/12/19 05:45 Seg Neutrophils # 3.0 K/mm3 (1.8-7.7) 01/12/19 05:45 Sodium 121 mmol/L (137-145) L 01/12/19 05:45 Potassium 4.1 mmol/L (3.6-5.0) 01/12/19 05:45 Chloride 86.9 mmol/L (98-107) L 01/12/19 05:45 Carbon Dioxide 23 mmol/L (22-30) 01/12/19 05:45 Anion Gap 15 mmol/L 01/12/19 05:45 BUN 8 mg/dL (9-20) L 01/12/19 05:45 Creatinine 0.5 mg/dL (0.8-1.5) L 01/12/19 05:45 Estimated GFR > 60 ml/min 01/12/19 05:45 BUN/Creatinine Ratio 16 % 01/12/19 05:45 Glucose 90 mg/dL (75-100) 01/12/19 05:45 Calcium 8.6 mg/dL (8.4-10.2) 01/12/19 05:45 Phenytoin 0.9 ug/mL (10.0-20.0) L 01/12/19 05:45 Plasma/Serum Alcohol 0.06 % (0-0.07) 01/12/19 05:45 Assessment and Plan Assessment and plan: Seizure disorder - Patient's put back on Dilantin Medication noncompliance - counselled about medication adherence Hyponatremia - Patient's sodium level was 120 - will monitor sodium level - Patient is on IV fluids Alcohol withdrawal - on [facility] protocol Homelessness - Will consult social security benefits interviewer DVT prophylaxis - On lovenox Disposition - Admit to the floor for inpatient care Advance Directives: Yes VTE prophylaxis?: Chemical Plan of care discussed with patient/family: Yes
[2019-01-12] MEDS ORDERED: SODIUM CHLORIDE 0.9% 1000 ML 1,000 ML IV SCH (13:00)
[2019-01-12] MEDS: MULTIVITAMINS ,THERAPEUTIC TAB PO SCH (16:13)
[2019-01-12] MEDS: THIAMINE 100 MG TAB PO SCH (16:13)
[2019-01-12] MEDS: ACETAMINOPHEN 325 MG TAB PO PRN ×2 (16:13→21:41)
[2019-01-12] MEDS: PHENYTOIN 100 MG CAPSULE.ER PO SCH ×2 (16:14→21:39)
[2019-01-12] MEDS: DOCUSATE SODIUM 100 MG CAP PO SCH ×2 (16:14→21:38)
[2019-01-12] MEDS: FOLIC ACID 1 MG TAB PO SCH (16:14)
[2019-01-12] MEDS: FAMOTIDINE 20 MG TAB PO SCH (21:39)
[2019-01-12] MEDS: ENOXAPARIN 40 MG/0.4 ML INJ SUB-Q SCH (21:39)
[2019-01-12] MEDS ORDERED: PHENYTOIN 100 MG CAPSULE.ER PO SCH (22:00)
[2019-01-13] MEDS: PHENYTOIN 100 MG CAPSULE.ER PO SCH ×3 (05:25→21:51)
[2019-01-13] MEDS: ACETAMINOPHEN 325 MG TAB PO PRN ×4 (05:26→18:36)
[2019-01-13 07:02] LABS: BUN/Creatinine Ratio 15; Blood Urea Nitrogen 9 mg/dL (9-20); Calcium 8.5 mg/dL (8.4-10.2); Hemolysis Index 8
--- NOTE | 2019-01-13 09:31 | Progress Note ---
Assessment and Plan Assessment and plan: Seizure disorder - Patient's put back on Dilantin Medication noncompliance - counselled about medication adherence Hyponatremia - Improved today - will monitor sodium level - Patient is on IV fluids Alcohol withdrawal - on [facility] protocol Homelessness - social media marketing manager consult DVT prophylaxis - On lovenox Disposition - continue inpatient care - Possible DC tomorrow. History Interval history: patient was seen and evaluated this morning, patient didn't have any seizure episode overnight. Hospitalist Physical - Physical exam Narrative exam: Not in cardiopulmonary distress. The patient appeared well nourished and normally developed. Vital signs as documented. Head exam is unremarkable. No scleral icterus . Neck is without jugular venous distension, thyromegaly, or carotid bruits. Lungs are clear to auscultation. Cardiac exam reveals regular rate and Rhythm. Abdominal exam reveals normal bowel sounds, nontender, no organomegaly. Extremities are nonedematous and both femoral and pedal pulses are normal. 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 No focal weakness. - Constitutional Vitals: Temp Pulse Resp BP Pulse Ox 98.7 F 67 16 140/88 96 01/13/19 08:42 01/13/19 07:58 01/13/19 08:42 01/13/19 08:42 01/13/19 07:58 Results - Labs CBC & Chem 7: 01/12/19 05:45 01/13/19 05:12 Labs: Laboratory Last Values WBC 4.8 K/mm3 (4.5-11.0) 01/12/19 05:45 RBC 4.00 M/mm3 (3.65-5.03) 01/12/19 05:45 Hgb 14.2 gm/dl (11.8-15.2) 01/12/19 05:45 Hct 40.0 % (35.5-45.6) 01/12/19 05:45 MCV 100 fl (84-94) H 01/12/19 05:45 MCH 35 pg (28-32) H 01/12/19 05:45 MCHC 35 % (32-34) H 01/12/19 05:45 RDW 15.5 % (13.2-15.2) H 01/12/19 05:45 Plt Count 265 K/mm3 (140-440) 01/12/19 05:45 Lymph % (Auto) 18.4 % (13.4-35.0) 01/12/19 05:45 [place] % (Auto) 15.8 % (0.0-7.3) H 01/12/19 05:45 Eos % (Auto) 1.7 % (0.0-4.3) 01/12/19 05:45 Baso % (Auto) 1.7 % (0.0-1.8) 01/12/19 05:45 Lymph # 0.9 K/mm3 (1.2-5.4) L 01/12/19 05:45 [place] # 0.8 K/mm3 (0.0-0.8) 01/12/19 05:45 Eos # 0.1 K/mm3 (0.0-0.4) 01/12/19 05:45 Baso # 0.1 K/mm3 (0.0-0.1) 01/12/19 05:45 Seg Neutrophils % 62.4 % (40.0-70.0) 01/12/19 05:45 Seg Neutrophils # 3.0 K/mm3 (1.8-7.7) 01/12/19 05:45 Sodium 131 mmol/L (137-145) L 01/13/19 05:12 Potassium 4.1 mmol/L (3.6-5.0) 01/13/19 05:12 Chloride 94.9 mmol/L (98-107) L 01/13/19 05:12 Carbon Dioxide 24 mmol/L (22-30) 01/13/19 05:12 Anion Gap 16 mmol/L 01/13/19 05:12 BUN 9 mg/dL (9-20) 01/13/19 05:12 Creatinine 0.6 mg/dL (0.8-1.5) L 01/13/19 05:12 Estimated GFR > 60 ml/min 01/13/19 05:12 BUN/Creatinine Ratio 15 % 01/13/19 05:12 Glucose 76 mg/dL (75-100) 01/13/19 05:12 Calcium 8.5 mg/dL (8.4-10.2) 01/13/19 05:12 Phenytoin 0.9 ug/mL (10.0-20.0) L 01/12/19 05:45 Plasma/Serum Alcohol 0.06 % (0-0.07) 01/12/19 05:45 Active Medications - Current Medications Current Medications: Generic Name Dose Route Start Last Admin Trade Name Freq PRN Reason Stop Dose Admin Acetaminophen 650 mg 01/12/19 12:11 01/13/19 09:04 Tylenol PO 650 mg Q4H PRN Administration Pain MILD(1-3)/Fever >100.5/CAAL Amlodipine Besylate 5 mg 01/13/19 10:00 Amlodipine PO QDAY DG Atenolol 50 mg 01/13/19 10:00 Tenormin PO QDAY DG Docusate Sodium 100 mg 01/12/19 14:00 01/12/19 21:38 Colace PO 100 mg BID DG Administration Enoxaparin Sodium 40 mg 01/12/19 22:00 01/12/19 21:39 Enoxaparin SUB-Q 40 mg QDAY@2200 DG Administration Famotidine 20 mg 01/12/19 22:00 01/12/19 21:39 Pepcid PO 20 mg BID DG Administration Folic Acid 1 mg 01/12/19 13:00 01/12/19 16:14 Folvite PO 1 mg DAILY DG Administration Sodium Chloride 1,000 mls @ 100 mls/hr 01/13/19 10:00 Nacl 0.9% 1000 Ml IV DIRECT DG Multivitamins 1 each 01/12/19 13:00 01/12/19 16:13 Theragran Tab PO 1 each DAILY DG Administration Ondansetron HCl 4 mg 01/12/19 12:11 Zofran IV Q8H PRN Nausea And Vomiting Phenytoin 100 mg 01/12/19 14:00 01/13/19 05:25 Dilantin PO 100 mg Q8HR DG Administration Phenytoin 400 mg 01/12/19 22:00 01/12/19 21:38 Dilantin PO 400 mg QHS DG Administration Sodium Chloride 10 ml 01/12/19 13:00 01/12/19 21:38 Sodium Chloride Flush Syringe 10 Ml IV 10 ml BID DG Administration Sodium Chloride 10 ml 01/12/19 12:11 Sodium Chloride Flush Syringe 10 Ml IV PRN PRN LINE FLUSH Thiamine HCl 100 mg 01/12/19 13:00 01/12/19 16:13 Vitamin B-1 PO 100 mg QDAY DG Administration
[2019-01-13] MEDS: SODIUM CHLORIDE 0.9% 1000 ML 1,000 ML IV SCH (09:38)
[2019-01-13] MEDS: MULTIVITAMINS ,THERAPEUTIC TAB PO SCH (09:40)
[2019-01-13] MEDS: DOCUSATE SODIUM 100 MG CAP PO SCH ×2 (09:40→21:52)
[2019-01-13] MEDS: atenoloL 50 MG TAB PO SCH (09:40)
[2019-01-13] MEDS: FAMOTIDINE 20 MG TAB PO SCH ×2 (09:40→21:51)
[2019-01-13] MEDS: THIAMINE 100 MG TAB PO SCH (09:40)
[2019-01-13] MEDS: FOLIC ACID 1 MG TAB PO SCH (09:41)
[2019-01-13] MEDS: amLODIPine 5 MG TAB PO SCH (09:41)
[2019-01-13] MEDS: ENOXAPARIN 40 MG/0.4 ML INJ SUB-Q SCH (21:51)
[2019-01-14] MEDS: ACETAMINOPHEN 325 MG TAB PO PRN (03:01)
[2019-01-14] MEDS: SODIUM CHLORIDE 0.9% 1000 ML 1,000 ML IV SCH ×2 (03:02→13:20)
[2019-01-14] MEDS: PHENYTOIN 100 MG CAPSULE.ER PO SCH ×3 (05:17→22:30)
[2019-01-14 08:07] LABS: BUN/Creatinine Ratio 18; Blood Urea Nitrogen 9 mg/dL (9-20); Calcium 8.5 mg/dL (8.4-10.2); Hemolysis Index 10
[2019-01-14] MEDS: MULTIVITAMINS ,THERAPEUTIC TAB PO SCH (11:26)
[2019-01-14] MEDS: DOCUSATE SODIUM 100 MG CAP PO SCH ×2 (11:26→22:30)
[2019-01-14] MEDS: THIAMINE 100 MG TAB PO SCH (11:27)
[2019-01-14] MEDS: FAMOTIDINE 20 MG TAB PO SCH ×2 (11:27→22:30)
[2019-01-14] MEDS: FOLIC ACID 1 MG TAB PO SCH (11:27)
[2019-01-14] MEDS: amLODIPine 5 MG TAB PO SCH (11:27)
[2019-01-14] MEDS: diazePAM 5 MG TAB PO SCH ×2 (11:27→22:30)
[2019-01-14] MEDS: atenoloL 50 MG TAB PO SCH (11:40)
--- NOTE | 2019-01-14 12:42 | Progress Note ---
Assessment and Plan Assessment and plan: Acute on chronic hyponatremia - Na level trended down today - Continue IV fluid, will monitor Alcohol withdrawal - Improved - Continue CIWA protocol Breakthrough seizure in a known seizure disorder - Due to medication noncompliance - Stable - Continue Dilantin. Level low at 0.9 - Continue seizure precautions - pt counselled on compliance Homelessness - social work case manager consulted DVT prophylaxis - On lovenox Disposition - For possible discharge in a.m. if sodium level improves. Pt has high risk for hospital readmission History Interval history: Patient has no new complaints. He denied chest pain or shortness of breath. No abdominal pain, nausea or vomiting. Hospitalist Physical - Constitutional Vitals: Temp Pulse Resp BP Pulse Ox 98.2 F 61 18 135/81 97 01/14/19 11:42 01/14/19 11:42 01/14/19 11:42 01/14/19 11:42 01/14/19 11:42 General appearance: Present: no acute distress, well-nourished, other (Tremors noted on the right arm) - EENT Eyes: Present: PERRL, EOM intact ENT: hearing intact, clear oral mucosa - Neck Neck: Present: supple - Respiratory Respiratory effort: normal Respiratory: bilateral: CTA - Cardiovascular Rhythm: regular Heart Sounds: Present: S1 & S2 - Extremities Extremities: No edema - Abdominal General gastrointestinal: soft, non-tender, normal bowel sounds - Integumentary Integumentary: Present: clear, warm, dry - Psychiatric Psychiatric: cooperative - Neurologic Neurologic: moves all extremities Results - Labs CBC & Chem 7: 01/12/19 05:45 01/14/19 06:38 Labs: Laboratory Last Values WBC 4.8 K/mm3 (4.5-11.0) 01/12/19 05:45 RBC 4.00 M/mm3 (3.65-5.03) 01/12/19 05:45 Hgb 14.2 gm/dl (11.8-15.2) 01/12/19 05:45 Hct 40.0 % (35.5-45.6) 01/12/19 05:45 MCV 100 fl (84-94) H 01/12/19 05:45 MCH 35 pg (28-32) H 01/12/19 05:45 MCHC 35 % (32-34) H 01/12/19 05:45 RDW 15.5 % (13.2-15.2) H 01/12/19 05:45 Plt Count 265 K/mm3 (140-440) 01/12/19 05:45 Lymph % (Auto) 18.4 % (13.4-35.0) 01/12/19 05:45 Butler % (Auto) 15.8 % (0.0-7.3) H 01/12/19 05:45 Eos % (Auto) 1.7 % (0.0-4.3) 01/12/19 05:45 Baso % (Auto) 1.7 % (0.0-1.8) 01/12/19 05:45 Lymph # 0.9 K/mm3 (1.2-5.4) L 01/12/19 05:45 Butler # 0.8 K/mm3 (0.0-0.8) 01/12/19 05:45 Eos # 0.1 K/mm3 (0.0-0.4) 01/12/19 05:45 Baso # 0.1 K/mm3 (0.0-0.1) 01/12/19 05:45 Seg Neutrophils % 62.4 % (40.0-70.0) 01/12/19 05:45 Seg Neutrophils # 3.0 K/mm3 (1.8-7.7) 01/12/19 05:45 Sodium 127 mmol/L (137-145) L 01/14/19 06:38 Potassium 4.3 mmol/L (3.6-5.0) 01/14/19 06:38 Chloride 93.7 mmol/L (98-107) L 01/14/19 06:38 Carbon Dioxide 21 mmol/L (22-30) L 01/14/19 06:38 Anion Gap 17 mmol/L 01/14/19 06:38 BUN 9 mg/dL (9-20) 01/14/19 06:38 Creatinine 0.5 mg/dL (0.8-1.5) L 01/14/19 06:38 Estimated GFR > 60 ml/min 01/14/19 06:38 BUN/Creatinine Ratio 18 % 01/14/19 06:38 Glucose 88 mg/dL (75-100) 01/14/19 06:38 Calcium 8.5 mg/dL (8.4-10.2) 01/14/19 06:38 Phenytoin 0.9 ug/mL (10.0-20.0) L 01/12/19 05:45 Plasma/Serum Alcohol 0.06 % (0-0.07) 01/12/19 05:45 Active Medications - Current Medications Current Medications: Generic Name Dose Route Start Last Admin Trade Name Freq PRN Reason Stop Dose Admin Acetaminophen 650 mg 01/12/19 12:11 01/14/19 03:01 Tylenol PO 650 mg Q4H PRN Administration Pain MILD(1-3)/Fever >100.5/CAAL Amlodipine Besylate 5 mg 01/13/19 10:00 01/14/19 11:27 Amlodipine PO 5 mg QDAY DG Administration Atenolol 50 mg 01/13/19 10:00 01/14/19 11:40 Tenormin PO 50 mg QDAY DG Administration Diazepam 5 mg 01/14/19 10:00 01/14/19 11:27 Valium PO 5 mg BID DG Administration Docusate Sodium 100 mg 01/12/19 14:00 01/14/19 11:26 Colace PO 100 mg BID DG Administration Enoxaparin Sodium 40 mg 01/12/19 22:00 01/13/19 21:51 Enoxaparin SUB-Q 40 mg QDAY@2200 DG Administration Famotidine 20 mg 01/12/19 22:00 01/14/19 11:27 Pepcid PO 20 mg BID GD Administration Folic Acid 1 mg 01/12/19 13:00 01/14/19 11:27 Folvite PO 1 mg DAILY DG Administration Sodium Chloride 1,000 mls @ 125 mls/hr 01/13/19 10:00 01/14/19 03:02 Nacl 0.9% 1000 Ml IV 100 mls/hr DIRECT DG Administration Lorazepam 2 mg 01/14/19 09:26 Ativan IV Q4H PRN Agitation Multivitamins 1 each 01/12/19 13:00 01/14/19 11:26 Theragran Tab PO 1 each DAILY DG Administration Ondansetron HCl 4 mg 01/12/19 12:11 Zofran IV Q8H PRN Nausea And Vomiting Phenytoin 100 mg 01/12/19 14:00 01/14/19 05:17 Dilantin PO 100 mg Q8HR DG Administration Sodium Chloride 10 ml 01/12/19 13:00 01/14/19 11:27 Sodium Chloride Flush Syringe 10 Ml IV 10 ml BID DG Administration Sodium Chloride 10 ml 01/12/19 12:11 Sodium Chloride Flush Syringe 10 Ml IV PRN PRN LINE FLUSH Thiamine HCl 100 mg 01/12/19 13:00 01/14/19 11:27 Vitamin B-1 PO 100 mg QDAY DG Administration
[2019-01-14] MEDS: LORazepam 2 MG/ML VIAL IV PRN ×2 (15:06→22:38)
[2019-01-14] MEDS: ENOXAPARIN 40 MG/0.4 ML INJ SUB-Q SCH (22:30)
[2019-01-15] MEDS: SODIUM CHLORIDE 0.9% 1000 ML 1,000 ML IV SCH (01:59)
[2019-01-15] MEDS: PHENYTOIN 100 MG CAPSULE.ER PO SCH ×2 (05:37→14:21)
[2019-01-15 06:49] LABS: BUN/Creatinine Ratio 18; Blood Urea Nitrogen 11 mg/dL (9-20); Calcium 8.5 mg/dL (8.4-10.2); Hemolysis Index 7
[2019-01-15] MEDS: THIAMINE 100 MG TAB PO SCH (10:36)
[2019-01-15] MEDS: DOCUSATE SODIUM 100 MG CAP PO SCH (10:36)
[2019-01-15] MEDS: MULTIVITAMINS ,THERAPEUTIC TAB PO SCH (10:36)
[2019-01-15] MEDS: FAMOTIDINE 20 MG TAB PO SCH (10:36)
[2019-01-15] MEDS: diazePAM 5 MG TAB PO SCH (10:36)
[2019-01-15] MEDS: amLODIPine 5 MG TAB PO SCH (10:36)
[2019-01-15] MEDS: FOLIC ACID 1 MG TAB PO SCH (10:36)
[2019-01-15] MEDS: atenoloL 50 MG TAB PO SCH (10:46)
--- NOTE | 2019-01-15 14:36 | Discharge Summary ---
Providers - Providers Date of Admission: 01/12/19 09:15 Attending physician: CARYL REN MD 01/14/19 12:52 Consult to Case Management [CONS] Routine Services Needed at Discharge: Other Notified:: housing case manager Additional Physician Instructions: homelessness Primary care physician: [facility] MD MARK Hospitalization Condition: Stable Hospital course: 63-year-old man who presents to the hospital after having a seizure. Patient was put back on Dilantin which had been taking previously. He was counseled about nonadherence Preventative health counseling performed for 17 minutes He was given IV fluids, his serum sodium improved, he received CIWA protocol for alcohol withdrawal He was offered custodial placement given that he was homeless. Diagnosis Status epilepticus Nonadherence to medications Alcohol abuse/dependence Homelessness Hyponatremia Disposition: TO HOME OR SELFCARE Time spent for discharge: 33 mins Core Measure Documentation - Palliative Care Palliative Care/ Comfort Measures: Not Applicable - Core Measures Any of the following diagnoses?: none Exam - Constitutional Vitals: Temp Pulse Resp BP Pulse Ox 98.6 F 61 18 143/81 98 01/15/19 11:31 01/15/19 11:31 01/15/19 11:31 01/15/19 11:31 01/15/19 11:31 General appearance: Present: no acute distress, well-nourished - EENT Eyes: Present: PERRL ENT: hearing intact, clear oral mucosa - Neck Neck: Present: supple, normal ROM - Respiratory Respiratory effort: normal Respiratory: bilateral: CTA - Cardiovascular Heart Sounds: Present: S1 & S2. Absent: rub, click - Extremities Extremities: pulses symmetrical, No edema Peripheral Pulses: within normal limits - Abdominal General gastrointestinal: Present: soft, non-tender, non-distended, normal bowel sounds Male genitourinary: Present: normal - Integumentary Integumentary: Present: clear, warm, dry - Musculoskeletal Musculoskeletal: gait normal, strength equal bilaterally - Psychiatric Psychiatric: appropriate mood/affect, intact judgment & insight - Neurologic Neurologic: CNII-XII intact, moves all extremities Plan Follow up with: WALLACE GOMEZ MD [Primary Care Provider] - 3-5 Days Prescriptions: RX: Phenytoin [Dilantin] 100 mg PO Q8HR #90 capsule RX: Folic Acid [Folvite] 1 mg PO DAILY #30 tablet RX: Multivitamin Tab [Multiple Vitamin TAB (Theragran)] 1 each PO DAILY #30 tablet RX: Thiamine [Vitamin B-1] 100 mg PO QDAY #30 tablet
[2019-01-15 15:56] VITALS: BP 133/76
== END 2019-01-15 16:45 | disposition home or self-care (01) | DRG 101 ==
LOC: ED 04:10 → 4A 09:15
PROVIDERS: ADMIT Internal Medicine; ATTEND Internal Medicine
DX: G40.909 Epilepsy, unspecified, not intractable, without status epilepticus (principal); E87.1 Hypo-osmolality and hyponatremia; F10.239 Alcohol dependence with withdrawal, unspecified; Y90.9 Presence of alcohol in blood, level not specified; W18.39XA Other fall on same level, initial encounter; F17.210 Nicotine dependence, cigarettes, uncomplicated; I10 Essential (primary) hypertension; F41.9 Anxiety disorder, unspecified; Z91.19 Patient's noncompliance with other medical treatment and regimen; Z88.8 Allergy status to other drugs, medicaments and biological substances; Y93.89 Activity, other specified; Y92.098 Other place in other non-institutional residence as the place of occurrence of the external cause; Y99.8 Other external cause status; Z59.0 Homelessness
CPT/HCPCS: 36415; 70450; 72125; 80048; 80185; 80320; 84295; 85025; 96374; G0378; G0480; J1650; J1885; J2060; J7030

== ENCOUNTER 2019-01-16 20:55 | Inpatient (IN) | payer OTHER ==
[2019-01-16 22:14] LABS: Hematocrit 42.3 % (35.5-45.6); Hemoglobin 14.4 gm/dl (11.8-15.2); Mean Corpuscular HGB Conc 34 % (32-34); Mean Corpuscular Volume 102 fl (84-94); Platelet Count 177 K/mm3 (140-440); Red Blood Count 4.15 M/mm3 (3.65-5.03); Red Cell Distribution Width 15.8 % (13.2-15.2)
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
[2019-01-16 22:36] LABS: BUN/Creatinine Ratio 20; Blood Urea Nitrogen 10 mg/dL (9-20); Calcium 8.4 mg/dL (8.4-10.2); Hemolysis Index 42
[2019-01-17] MEDS ORDERED: FOSPHENYTOIN 1,000 MG.PE in SODIUM CHLORIDE 0.9% 100 ML IV ONE (01:00)
--- NOTE | 2019-01-17 01:14 | XRay Report ---
CHEST 1 VIEW INDICATION / CLINICAL INFORMATION: Chest pain. COMPARISON: Chest radiograph 12/26/2017 FINDINGS: SUPPORT DEVICES: None. HEART / MEDIASTINUM: No significant abnormality. LUNGS / PLEURA: No significant pulmonary or pleural abnormality. No pneumothorax. ADDITIONAL FINDINGS: No significant additional findings. IMPRESSION: 1. No acute findings. Signer Name: Chelsea Paniagua MD Signed: 01/16/2019 11:22 PM Workstation Name: [id number]
--- NOTE | 2019-01-17 01:14 | XRay Report ---
XR LEFT HIP 3 VIEWS INDICATION / CLINICAL INFORMATION: hip ppain COMPARISON: Left hip radiograph 01/05/2019 FINDINGS: BONES / JOINT(S): No acute displaced fracture or subluxation. Left hip prosthesis without evidence of complication. Degenerative changes in the visualized lower lumbar spine. SOFT TISSUES: No significant abnormality. ADDITIONAL FINDINGS: None. Signer Name: Chelsea Paniagua MD Signed: 01/16/2019 11:24 PM Workstation Name: [id number]
[2019-01-17 02:16] LABS: Amphetamine Screen,Urine PRESUMPTIVE NEGATIVE; Benzodiazepines Screen,Urine PRESUMPTIVE NEGATIVE; Cannabinoid Screen,Urine PRESUMPTIVE NEGATIVE; Cocaine Screen,Urine PRESUMPTIVE NEGATIVE; Methadone Screen,Urine PRESUMPTIVE NEGATIVE; Opiate Screen,Urine PRESUMPTIVE NEGATIVE
--- NOTE | 2019-01-17 04:26 | History and Physical Report ---
History of Present Illness Date of examination: 01/16/19 Date of admission: 01/17/19 03:51 Chief complaint: Seizures History of present illness: 63-year-old male who was just recently discharged from this hospital for hyponatremia. Had a seizure activity today. He denies any urinary or fecal incontinence. Indicates he has been having some nausea and vomiting and has been unable to tolerate any p.o. intake. Denies any fever or chills, no chest pain or shortness of breath. Past History Past Medical History: hypertension, seizures Past Surgical History: Other (Right knee surgery, neck surgery.) Social history: smoking (Smokes less than half), alcohol abuse (Drinks alcohol occasionally) Family history: no significant family history Medications and Allergies Allergies Allergy/AdvReac Type Severity Reaction Status Date / Time olanzapine [From Zyprexa] Allergy Nausea Verified 12/23/17 12:17 Home Medications Medication Instructions Recorded Confirmed Last Taken Type Atenolol [Tenormin] 50 mg PO QDAY #30 tablet 12/30/17 01/16/19 Unknown Rx amLODIPine 5 mg PO QDAY #30 tablet 12/30/17 01/16/19 Unknown Rx Ibuprofen [Motrin 800 MG tab] 800 mg PO Q8HR PRN #10 tablet 01/06/19 01/16/19 Unknown Rx Folic Acid [Folvite] 1 mg PO DAILY #30 tablet 01/15/19 01/16/19 Unknown Rx Multivitamin Tab [Multiple Vitamin 1 each PO DAILY #30 tablet 01/15/19 01/16/19 Unknown Rx TAB (Theragran)] Phenytoin [Dilantin] 100 mg PO Q8HR #90 capsule 01/15/19 01/16/19 Unknown Rx Thiamine [Vitamin B-1] 100 mg PO QDAY #30 tablet 01/15/19 01/16/19 Unknown Rx diazePAM TAB [Valium] 5 mg PO BID #7 tablet 01/15/19 01/16/19 Unknown Rx Review of Systems Gastrointestinal: nausea, vomiting Exam - Constitutional Vitals: Temp Pulse Resp BP Pulse Ox 97.5 F L 80 16 138/69 97 01/16/19 21:19 01/17/19 04:00 01/17/19 04:00 01/17/19 04:00 01/17/19 04:00 General appearance: Present: no acute distress - EENT Eyes: Present: PERRL, EOM intact ENT: hearing intact, clear oral mucosa, dentition normal - Neck Neck: Present: supple, normal ROM - Respiratory Respiratory: bilateral: CTA - Cardiovascular Rhythm: regular Heart Sounds: Present: S1 & S2 - Extremities Extremities: no ischemia, No edema Peripheral Pulses: within normal limits - Abdominal General gastrointestinal: Present: soft, non-tender, non-distended - Integumentary Integumentary: Present: clear, warm, dry - Musculoskeletal Musculoskeletal: strength equal bilaterally - Psychiatric Psychiatric: appropriate mood/affect, intact judgment & insight - Neurologic Neurologic: CNII-XII intact, moves all extremities Results - Labs CBC & Chem 7: 01/16/19 21:45 01/16/19 21:45 Labs: Abnormal lab results 01/16/19 01/16/19 01/17/19 Range/Units 21:45 21:45 Unknown MCV 102 H (84-94) fl MCH 35 H (28-32) pg RDW 15.8 H (13.2-15.2) % Sodium 120 L D (137-145) mmol/L Chloride 88.4 L (98-107) mmol/L Carbon Dioxide 17 L (22-30) mmol/L Creatinine 0.5 L (0.8-1.5) mg/dL Total Creatine Kinase (55-170) units/L Salicylates < 0.3 L (2.8-20.0) mg/dL Acetaminophen (10.0-30.0) ug/mL Phenytoin 1.2 L (10.0-20.0) ug/mL 01/17/19 01/17/19 Range/Units Unknown Unknown MCV (84-94) fl MCH (28-32) pg RDW (13.2-15.2) % Sodium (137-145) mmol/L Chloride (98-107) mmol/L Carbon Dioxide (22-30) mmol/L Creatinine (0.8-1.5) mg/dL Total Creatine Kinase 49 L (55-170) units/L Salicylates (2.8-20.0) mg/dL Acetaminophen < 5.0 L (10.0-30.0) ug/mL Phenytoin (10.0-20.0) ug/mL Assessment and Plan - Patient Problems (1) Hyponatremia Current Visit: Yes Status: Acute (2) Seizures Current Visit: Yes Status: Acute (3) Nausea & vomiting Current Visit: No Status: Acute (4) DVT prophylaxis Current Visit: Yes Status: Acute (5) Full code status Current Visit: Yes Status: Acute
[2019-01-17] MEDS ORDERED: ACETAMINOPHEN 325 MG TAB PO PRN (06:40)
[2019-01-17] MEDS ORDERED: SODIUM CHLORIDE 0.9% 1000 ML 1,000 ML IV SCH (07:00)
[2019-01-17] MEDS: THIAMINE 100 MG TAB PO SCH (10:10)
[2019-01-17] MEDS: atenoloL 50 MG TAB PO SCH (10:10)
[2019-01-17] MEDS: MULTIVITAMINS ,THERAPEUTIC TAB PO SCH (10:10)
[2019-01-17] MEDS: diazePAM 5 MG TAB PO SCH ×2 (10:10→22:28)
[2019-01-17] MEDS: FOLIC ACID 1 MG TAB PO SCH (10:10)
[2019-01-17] MEDS: amLODIPine 5 MG TAB PO SCH (10:10)
[2019-01-17] MEDS ORDERED: LORazepam 2 MG/ML VIAL IV PRN ×2 (10:54)
[2019-01-17] MEDS ORDERED: LORazepam 2 MG TAB PO PRN (10:54)
[2019-01-17] MEDS ORDERED: ONDANSETRON 4 MG/2 ML INJ IV PRN (10:56)
[2019-01-17] MEDS ORDERED: PNEUMOCOCCAL 23 Valent 0.5 ML VIAL IM ONE (12:00)
[2019-01-17] MEDS: HEPARIN 5,000 UNIT/1 ML VIAL SUB-Q SCH ×2 (13:12→22:28)
[2019-01-17] MEDS: PHENYTOIN 100 MG CAPSULE.ER PO SCH (22:27)
[2019-01-17] MEDS: IBUPROFEN 800 MG TAB PO PRN (23:04)
[2019-01-17] MEDS: D5W/0.9% NACL 1,000 ML IV SCH (23:04)
[2019-01-18] MEDS: HEPARIN 5,000 UNIT/1 ML VIAL SUB-Q SCH ×2 (05:57→14:33)
[2019-01-18] MEDS: PHENYTOIN 100 MG CAPSULE.ER PO SCH ×2 (05:57→14:32)
[2019-01-18] MEDS: D5W/0.9% NACL 1,000 ML IV SCH (06:39)
[2019-01-18] MEDS: atenoloL 50 MG TAB PO SCH (09:19)
[2019-01-18] MEDS: amLODIPine 5 MG TAB PO SCH (09:20)
[2019-01-18] MEDS: FOLIC ACID 1 MG TAB PO SCH (09:20)
[2019-01-18] MEDS: THIAMINE 100 MG TAB PO SCH (09:20)
[2019-01-18] MEDS: MULTIVITAMINS ,THERAPEUTIC TAB PO SCH (09:20)
[2019-01-18] MEDS: diazePAM 5 MG TAB PO SCH (09:20)
[2019-01-18] MEDS: IBUPROFEN 800 MG TAB PO PRN (09:26)
[2019-01-18] MEDS ORDERED: atenoloL 50 MG TAB PO SCH (10:00)
--- NOTE | 2019-01-18 10:04 | Discharge Summary ---
Providers - Providers Date of Admission: 01/17/19 03:51 Attending physician: CARYL REN MD 01/17/19 10:55 Consult to Case Management [CONS] Routine Services Needed at Discharge: Other Family Support Worker Notified:: sue Comment:: homeless Primary care physician: MONITORING SPECIALIST Hospitalization Condition: Fair Hospital course: 63-year-old man with a history of alcoholism and seizure disorder. Patient is currently homeless, abuses tobacco and states that he gets seizures when he stops drinking. Patient received IV fluids, anti epileptic medications, -He was counseled on medication compliance and advised to quit alcohol Preventative health counseling performed for 17 minutes Tobacco abuse/dependence Smoking cessation counseling performed for 10 minutes, nicotine patches when necessary He was offered usp placement and he refused Diagnosis Status epilepticus Delirium tremens Hyponatremia Tobacco abuse/dependence Alcohol dependence/delirium tremens Disposition: - TO HOME OR SELFCARE Time spent for discharge: 35 minutes Core Measure Documentation - Palliative Care Palliative Care/ Comfort Measures: Not Applicable - Core Measures Any of the following diagnoses?: none Exam - Constitutional Vitals: Temp Pulse Resp BP Pulse Ox 97.5 F L 72 14 141/78 94 01/18/19 04:12 01/18/19 09:20 01/18/19 06:04 01/18/19 09:20 01/18/19 04:12 General appearance: Present: no acute distress, well-nourished - EENT Eyes: Present: PERRL ENT: hearing intact, clear oral mucosa - Neck Neck: Present: supple, normal ROM - Respiratory Respiratory effort: normal Respiratory: bilateral: CTA - Cardiovascular Heart Sounds: Present: S1 & S2. Absent: rub, click - Extremities Extremities: pulses symmetrical, No edema Peripheral Pulses: within normal limits - Abdominal General gastrointestinal: Present: soft, non-tender, non-distended, normal bowel sounds Male genitourinary: Present: normal - Integumentary Integumentary: Present: clear, warm, dry - Musculoskeletal Musculoskeletal: gait normal, strength equal bilaterally - Psychiatric Psychiatric: appropriate mood/affect, intact judgment & insight - Neurologic Neurologic: CNII-XII intact, moves all extremities Plan Follow up with: PRIMARY CARE, [Primary Care Provider] - 3-5 Days
[2019-01-18 10:42] LABS: BUN/Creatinine Ratio 18; Blood Urea Nitrogen 9 mg/dL (9-20); Calcium 8.2 mg/dL (8.4-10.2); Hemolysis Index 13
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
[2019-01-18 12:28] VITALS: BP 143/83
== END 2019-01-18 15:45 | disposition home or self-care (01) | DRG 101 ==
LOC: ED 20:55 → 3A 01-17 03:51
PROVIDERS: ADMIT Internal Medicine Geriatric Medicine; ATTEND Internal Medicine
DX: R56.9 Unspecified convulsions (principal); E87.1 Hypo-osmolality and hyponatremia; I10 Essential (primary) hypertension; F10.10 Alcohol abuse, uncomplicated; F17.200 Nicotine dependence, unspecified, uncomplicated; Z79.899 Other long term (current) drug therapy; Z59.0 Homelessness
CPT/HCPCS: 36415; 70450; 71045; 80048; 80185; 80307; 80320; 82550; 82962; 85027; 87116; 90471; 90732; 93005; 93010; 99406; G0378; G0480; J1644; J7030; J7042; Q2009

== ENCOUNTER 2019-02-15 17:48 | Emergency (ER) | payer SELFPAY ==
[2019-02-15 18:27] VITALS: BP 158/92
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
--- NOTE | 2019-02-15 19:12 | XRay Report ---
LEFT HIP 3 VIEWS INDICATION / CLINICAL INFORMATION: fell having hip pain. COMPARISON: 02/14/2019 FINDINGS: Left hip prosthesis remains in position. No fracture or other acute abnormality. Signer Name: Mayank Rogers MD Signed: 02/15/2019 7:08 PM Workstation Name: [id number]
--- NOTE | 2019-02-15 20:47 | Emergency Department Report ---
ED Seizure HPI - General Chief Complaint: Seizure Stated Complaint: BODY PAIN Time Seen by Provider: 02/15/19 18:31 Source: EMS Mode of arrival: Ambulatory Limitations: Other - History of Present Illness Initial Comments: Patient is a 63-year-old mellitus emergency room with complaints of seizure activity. Patient states he had a seizure today. Patient states he has a history of seizures. Patient states he is compliant with his medications. Patient states he takes all of his medications. Patient denies headache. Patient denies chest pain or shortness of breath. Patient denies nausea vomiting. Patient states he is having 10 out of 10 hip pain. Patient states she had a hip replacement in the past. Patient denies fall. Patient denies tra sarmad. Patient denies dizziness. Patient denies headache. Patient states his seizure was witnessed by his friends. Patient states his friend states she did not hit his head. Patient states he only had 1 seizure. MD Complaint: seizure -: Sudden Description of Episode: loss of consciousness, tonic-clonic movement, bladder incontinence -: second(s) Witnessed:: Yes Trauma: No Seizure History: known seizure disorder, compliant with medication Place: street/outdoors Possible Precipitating Event: none Associated Symptoms: denies: chest pain, confusion, cough, diaphoresis, fever/chills, loss of appetite, malaise, rash, shortness of breath, syncope, weakness, tongue injury, shoulder dislocation Treatments Prior to Arrival: none - Related Data Previous Rx's Medication Instructions Recorded Last Taken Type Atenolol [Tenormin] 50 mg PO QDAY #30 tablet 12/30/17 Unknown Rx amLODIPine 5 mg PO QDAY #30 tablet 12/30/17 Unknown Rx Ibuprofen [Motrin 800 MG tab] 800 mg PO Q8HR PRN #10 tablet 01/06/19 Unknown Rx Folic Acid [Folvite] 1 mg PO DAILY #30 tablet 01/15/19 Unknown Rx Multivitamin Tab [Multiple Vitamin 1 each PO DAILY #30 tablet 01/15/19 Unknown Rx TAB (Theragran)] Thiamine [Vitamin B-1] 100 mg PO QDAY #30 tablet 01/15/19 Unknown Rx Phenytoin [Dilantin] 100 mg PO Q8HR 15 Days #45 capsule 02/15/19 Unknown Rx Allergies Allergy/AdvReac Type Severity Reaction Status Date / Time olanzapine [From Zyprexa] Allergy Nausea Verified 02/15/19 18:02 ED Review of Systems ROS: Stated complaint: BODY PAIN Other details as noted in HPI Constitutional: denies: chills, fever Eyes: denies: eye pain, eye discharge, vision change ENT: denies: ear pain, throat pain Respiratory: denies: cough, shortness of breath, wheezing Cardiovascular: denies: chest pain, palpitations Endocrine: no symptoms reported Gastrointestinal: denies: abdominal pain, nausea, diarrhea Genitourinary: denies: urgency, dysuria Musculoskeletal: denies: back pain, joint swelling, arthralgia Skin: denies: rash, lesions Neurological: denies: headache, weakness, paresthesias Psychiatric: denies: anxiety, depression Hematological/Lymphatic: denies: easy bleeding, easy bruising ED Past Medical Hx - Past Medical History Previous Medical History?: Yes Hx Hypertension: Yes Hx Congestive Heart Failure: No Hx Diabetes: No Hx Seizures: Yes Hx Psychiatric Treatment: Yes (anxiety psychosis) Hx Asthma: Yes Hx COPD: No Additional medical history: Other Hx is unclear - Surgical History Past Surgical History?: Yes Additional Surgical History: R knee surgery, left lung injury HIP SURGERY - Family History Family history: no significant - Social History Smoking Status: Current Every Day Smoker Substance Use Type: Alcohol - Medications Home Medications: Home Medications Medication Instructions Recorded Confirmed Last Taken Type Atenolol [Tenormin] 50 mg PO QDAY #30 tablet 12/30/17 01/16/19 Unknown Rx amLODIPine 5 mg PO QDAY #30 tablet 12/30/17 01/16/19 Unknown Rx Ibuprofen [Motrin 800 MG tab] 800 mg PO Q8HR PRN #10 tablet 01/06/19 01/16/19 Unknown Rx Folic Acid [Folvite] 1 mg PO DAILY #30 tablet 01/15/19 01/16/19 Unknown Rx Multivitamin Tab [Multiple Vitamin 1 each PO DAILY #30 tablet 01/15/19 01/16/19 Unknown Rx TAB (Theragran)] Thiamine [Vitamin B-1] 100 mg PO QDAY #30 tablet 01/15/19 01/16/19 Unknown Rx Phenytoin [Dilantin] 100 mg PO Q8HR 15 Days #45 capsule 02/15/19 Unknown Rx ED Physical Exam - General Limitations: No Limitations, Other General appearance: alert, in no apparent distress - Head Head exam: Present: atraumatic, normocephalic - Eye Eye exam: Present: normal appearance, PERRL Pupils: Present: normal accommodation - ENT ENT exam: Present: mucous membranes moist - Neck Neck exam: Present: normal inspection - Respiratory Respiratory exam: Present: normal lung sounds bilaterally. Absent: respiratory distress, wheezes, rales - Cardiovascular Cardiovascular Exam: Present: regular rate, normal rhythm. Absent: systolic murmur, diastolic murmur, rubs, gallop - GI/Abdominal GI/Abdominal exam: Present: soft, normal bowel sounds. Absent: distended, tenderness, guarding - Rectal Rectal exam: Present: deferred - Extremities Exam Extremities exam: Present: normal inspection - Back Exam Back exam: Present: normal inspection - Neurological Exam Neurological exam: Present: alert, oriented X3 - Psychiatric Psychiatric exam: Present: normal affect, normal mood - Skin Skin exam: Present: warm, dry, intact, normal color. Absent: rash ED Course Vital Signs 02/15/19 18:26 Temperature 98.6 F Pulse Rate 97 H Respiratory 24 Rate Blood Pressure 158/92 O2 Sat by Pulse 96 Oximetry - Reevaluation(s) Reevaluation #1: I discussed all results with patient. Patient has not had any seizure activity in the hospital. Patient states she would like some Tylenol for his hip pain. Patient given a gram of Tylenol. Patient is stable for discharge. Patient was discharged home. Patient given discharge instructions. Patient voiced understanding of discharge instructions. 02/15/19 21:12 ED Medical Decision Making - Radiology Data Radiology results: report reviewed, image reviewed interpreted by me: No acute fractures on x-ray. - Medical Decision Making Patient is a 63-year-old male up since emergency room with seizure. Patient has a long history of seizures. Patient is compliant with his medications. Patient given a refill of his medications. Patient had one seizure prior to arrival and did not have any further seizure activity the entire time patient was in the ER and in the waiting room. Patient had complained of left hip pain and had a hip x-ray done which was negative for acute fracture. Patient does not require further evaluation the ER. Patient given a new prescription and discharged home. Patient given discharge instructions. - Differential Diagnosis seizure. Miss doses. Critical care attestation.: If time is entered above; I have spent that time in minutes in the direct care of this critically ill patient, excluding procedure time. ED Disposition Clinical Impression: Seizures Hip pain Qualifiers: Laterality: left Qualified Code(s): M25.552 - Pain in left hip Sprain of left hip Qualifiers: Encounter type: initial encounter Qualified Code(s): S73.102A - Unspecified sprain of left hip, initial encounter Disposition: TO HOME OR SELFCARE Is pt being admited?: No Does the pt Need Aspirin: No Condition: Stable Instructions: Epilepsy (ED), Hip Sprain (ED), Recurrent Seizures Adult (ED) Additional Instructions: Patient to follow up with primary care in 2-3 days. Patient to follow-up with neurologist in 2-3 days. Patient to return to ER if condition worsens. Patient to rest. Patient to continue all meds. Patient to take Tylenol or ibuprofen when necessary for pain. Patient to avoid driving. Prescriptions: Phenytoin [Dilantin] 100 mg PO Q8HR 15 Days #45 capsule Referrals: PRIMARY CARE, [Primary Care Provider] - 3-5 Days Time of Disposition: 21:08
[2019-02-15] MEDS ORDERED: ACETAMINOPHEN 500 MG TAB PO ONE (21:10)
[2019-02-15] MEDS ORDERED: ACETAMINOPHEN 500 MG TAB ONE (21:14)
== END 2019-02-15 21:38 | disposition home or self-care (01) ==
LOC: ED 17:48
DX: S73.102A Unspecified sprain of left hip, initial encounter (principal); R56.9 Unspecified convulsions; I10 Essential (primary) hypertension; F41.9 Anxiety disorder, unspecified; J45.909 Unspecified asthma, uncomplicated; F17.200 Nicotine dependence, unspecified, uncomplicated; F10.10 Alcohol abuse, uncomplicated; Z79.899 Other long term (current) drug therapy; Z88.8 Allergy status to other drugs, medicaments and biological substances; Z59.0 Homelessness; X58.XXXA Exposure to other specified factors, initial encounter; Y93.89 Activity, other specified; Y92.89 Other specified places as the place of occurrence of the external cause; Y99.8 Other external cause status

== ENCOUNTER 2019-02-18 21:01 | Inpatient (IN) | payer OTHER ==
[2019-02-18 22:16] LABS: Hematocrit 40.1 % (35.5-45.6); Hemoglobin 14.2 gm/dl (11.8-15.2); Mean Corpuscular HGB Conc 36 % (32-34); Mean Corpuscular Volume 102 fl (84-94); Platelet Count 218 K/mm3 (140-440); Red Blood Count 3.93 M/mm3 (3.65-5.03); Red Cell Distribution Width 15.2 % (13.2-15.2)
[2019-02-18 22:37] LABS: BUN/Creatinine Ratio 16; Blood Urea Nitrogen 8 mg/dL (9-20); Calcium 9.9 mg/dL (8.4-10.2); Hemolysis Index 65
[2019-02-18] MEDS ORDERED: SODIUM CHLORIDE 0.9% 1000 ML 1,000 ML IV ONE (23:55)
[2019-02-18] MEDS ORDERED: PHENYTOIN 1,000 MG in SODIUM CHLORIDE 0.9% 250ML 250 ML IV ONE (23:56)
[2019-02-18] MEDS ORDERED: LORazepam 2 MG/ML VIAL IV PRN ×2 (23:56)
[2019-02-18] MEDS ORDERED: THIAMINE 100 MG, FOLIC ACID 1 MG, MULTIPLE VITAMIN INJ, ADULT 10 ML in SODIUM CHLORIDE ... IV ONE (23:57)
--- NOTE | 2019-02-19 00:02 | Emergency Department Report ---
ED Seizure HPI - General Chief Complaint: Seizure Stated Complaint: SEIZURE Time Seen by Provider: 02/18/19 23:47 Source: patient, EMS Mode of arrival: Stretcher Limitations: Physical Limitation - History of Present Illness Initial Comments: Patient is 63 years old male, homeless, history of seizure and chronic alcohol abuse with previous history of his withdrawal seizure and DTs. He should also have a history of bipolar disorder. Patient presented to the ER stating that he had two seizures since yesterday. Patient stated that he is not feeling well. Patient also stated that he is hearing voices in seeing stuff that is not there. Patient is shaking. Patient presentation is consistent with DTs. Patient stated that he is unable to refill his Dilantin because he is unable to walk to the pharmacy. MD Complaint: seizure -: days(s) (2) Description of Episode: loss of consciousness, tonic-clonic movement Witnessed:: Yes Trauma: No Seizure History: known seizure disorder, history of withdrawal se Place: street/outdoors Possible Precipitating Event: none Associated Symptoms: denies other symptoms Treatments Prior to Arrival: none - Related Data Previous Rx's Medication Instructions Recorded Last Taken Type Atenolol [Tenormin] 50 mg PO QDAY #30 tablet 12/30/17 Unknown Rx amLODIPine 5 mg PO QDAY #30 tablet 12/30/17 Unknown Rx Ibuprofen [Motrin 800 MG tab] 800 mg PO Q8HR PRN #10 tablet 01/06/19 Unknown Rx Folic Acid [Folvite] 1 mg PO DAILY #30 tablet 01/15/19 Unknown Rx Multivitamin Tab [Multiple Vitamin 1 each PO DAILY #30 tablet 01/15/19 Unknown Rx TAB (Theragran)] Thiamine [Vitamin B-1] 100 mg PO QDAY #30 tablet 01/15/19 Unknown Rx Phenytoin [Dilantin] 100 mg PO Q8HR 15 Days #45 capsule 02/15/19 Unknown Rx Allergies Allergy/AdvReac Type Severity Reaction Status Date / Time olanzapine [From Zyprexa] Allergy Nausea Verified 02/15/19 18:02 ED Review of Systems ROS: Stated complaint: SEIZURE Other details as noted in HPI Comment: All other systems reviewed and negative Constitutional: denies: chills, fever Respiratory: denies: cough, shortness of breath, SOB with exertion, SOB at rest, wheezing Cardiovascular: denies: chest pain, palpitations Gastrointestinal: denies: abdominal pain, nausea, vomiting, diarrhea, constipation, hematemesis, melena, hematochezia Genitourinary: denies: urgency, dysuria Musculoskeletal: denies: back pain Neurological: denies: headache, weakness Psychiatric: anxiety, auditory hallucinations, visual hallucinations. denies: depression, homicidal thoughts, suicidal thoughts ED Past Medical Hx - Past Medical History Previous Medical History?: Yes Hx Hypertension: Yes Hx Congestive Heart Failure: No Hx Diabetes: No Hx Seizures: Yes Hx Psychiatric Treatment: Yes (anxiety psychosis) Hx Asthma: Yes Hx COPD: No Additional medical history: Other Hx is unclear - Surgical History Past Surgical History?: Yes Additional Surgical History: R knee surgery, left lung injury HIP SURGERY - Social History Smoking Status: Never Smoker Substance Use Type: None - Medications Home Medications: Home Medications Medication Instructions Recorded Confirmed Last Taken Type Atenolol [Tenormin] 50 mg PO QDAY #30 tablet 12/30/17 01/16/19 Unknown Rx amLODIPine 5 mg PO QDAY #30 tablet 12/30/17 01/16/19 Unknown Rx Ibuprofen [Motrin 800 MG tab] 800 mg PO Q8HR PRN #10 tablet 01/06/19 01/16/19 Unknown Rx Folic Acid [Folvite] 1 mg PO DAILY #30 tablet 01/15/19 01/16/19 Unknown Rx Multivitamin Tab [Multiple Vitamin 1 each PO DAILY #30 tablet 01/15/19 01/16/19 Unknown Rx TAB (Theragran)] Thiamine [Vitamin B-1] 100 mg PO QDAY #30 tablet 01/15/19 01/16/19 Unknown Rx Phenytoin [Dilantin] 100 mg PO Q8HR 15 Days #45 capsule 02/15/19 Unknown Rx ED Physical Exam - General Limitations: Physical Limitation General appearance: alert, anxious - Head Head exam: Present: atraumatic, normocephalic, normal inspection - Eye Eye exam: Present: normal appearance - ENT ENT exam: Present: normal exam, normal orophraynx, mucous membranes moist - Neck Neck exam: Present: normal inspection, full ROM. Absent: tenderness, meningismus, lymphadenopathy, thyromegaly - Respiratory Respiratory exam: Present: normal lung sounds bilaterally - Cardiovascular Cardiovascular Exam: Present: tachycardia - GI/Abdominal GI/Abdominal exam: Present: soft, normal bowel sounds. Absent: distended, tenderness, guarding, rebound, rigid, organomegaly, mass, bruit, pulsatile mass, hernia - Extremities Exam Extremities exam: Present: normal inspection, full ROM, normal capillary refill. Absent: pedal edema, calf tenderness - Back Exam Back exam: Present: normal inspection, full ROM. Absent: CVA tenderness (R), CVA tenderness (L), muscle spasm, paraspinal tenderness, vertebral tenderness - Neurological Exam Neurological exam: Present: alert, oriented X3, CN II-XII intact, normal gait, reflexes normal. Absent: motor sensory deficit - Psychiatric Psychiatric exam: Present: normal mood, depressed, agitated, anxious. Absent: homicidal ideation, suicidal ideation - Skin Skin exam: Present: warm, intact, normal color ED Course Vital Signs 02/18/19 02/18/19 02/19/19 21:09 21:31 00:15 Temperature 98.1 F 98.1 F Pulse Rate 117 H 117 H 122 H Respiratory 18 18 20 Rate Blood Pressure 164/88 164/88 158/102 O2 Sat by Pulse 96 96 98 Oximetry 02/19/19 02/19/19 02/19/19 00:30 00:45 01:00 Temperature Pulse Rate 116 H 120 H 124 H Respiratory 19 16 16 Rate Blood Pressure 178/103 182/102 182/102 O2 Sat by Pulse 97 92 97 Oximetry 02/19/19 01:04 Temperature Pulse Rate Respiratory 22 Rate Blood Pressure O2 Sat by Pulse 95 Oximetry ED Medical Decision Making - Lab Data Result diagrams: 02/18/19 22:04 02/18/19 22:04 - Medical Decision Making Patient is 63 years old male, homeless, history of seizure and chronic alcohol abuse with previous history of his withdrawal seizure and DTs. He should also have a history of bipolar disorder. Patient presented to the ER stating that he had two seizures since yesterday. Patient stated that he is not feeling well. Patient also stated that he is hearing voices in seeing stuff that is not there. Patient is shaking. Patient presentation is consistent with DTs. Patient stated that he is unable to refill his Dilantin because he is unable to walk to the pharmacy. Patient started on CIWA protocol. Patient found to have a sodium of 125. Patient is started on normal saline. Patient also given Zofran 4 vomiting. I d iscussed the patient is Dr. Clancy, he agreed to admit the patient to medical service for further management. Critical Care Time: Yes Critical care time in (mins) excluding proc time.: 30 Critical care attestation.: If time is entered above; I have spent that time in minutes in the direct care of this critically ill patient, excluding procedure time. ED Disposition Clinical Impression: ETOH abuse, Delirium tremens, Alcohol withdrawal, Seizures, Acute hyponatremia Disposition: DC-09 OP ADMIT IP TO THIS HOSP Is pt being admited?: Yes Condition: Stable
[2019-02-19] MEDS ORDERED: ONDANSETRON 4 MG/2 ML INJ IV ONE (00:59)
[2019-02-19 02:11] LABS: Bacteria,Urine 1+ /HPF (Negative); Bilirubin,Urine NEG (Negative); Blood,Urine NEG (Negative); Color,Urine Yellow (Yellow); Mucus,Urine FEW /HPF
[2019-02-19 02:13] LABS: Amphetamine Screen,Urine PRESUMPTIVE NEGATIVE; Benzodiazepines Screen,Urine PRESUMPTIVE NEGATIVE; Cannabinoid Screen,Urine PRESUMPTIVE NEGATIVE; Cocaine Screen,Urine PRESUMPTIVE NEGATIVE; Methadone Screen,Urine PRESUMPTIVE NEGATIVE; Opiate Screen,Urine PRESUMPTIVE NEGATIVE
[2019-02-19] MEDS: LORazepam 2 MG/ML VIAL IV PRN ×2 (03:41→17:08)
[2019-02-19] MEDS ORDERED: ONDANSETRON 4 MG/2 ML INJ ONE (03:53)
--- NOTE | 2019-02-19 07:20 | History and Physical Report ---
History of Present Illness Date of examination: 02/19/19 Date of admission: 02/19/19 04:43 Chief complaint: Alcohol withdrawal seizures with DTs History of present illness: Patient is 63 years old male, homeless, history of seizure and chronic alcohol abuse, bipolar disorder with previous history of his withdrawal seizure and DTs. Patient presented to the ER stating that he had two seizures since yesterday. Patient stated that he is not feeling well. He also reported hearing voices and seeing stuff that is not there and was shaking at the time of presentation to the ED. He was diagnosed with DTs and was recommended for admission. The patient states he has been unable to refill his Dilantin as he is unable to walk to the pharmacist due to weakness and recurrent seizures. Past History Past Medical History: seizures, other (EtOH dependence) Past Surgical History: No surgical history Social history: Lives alone, full code Family history: no significant family history (Homeless) Medications and Allergies Allergies Allergy/AdvReac Type Severity Reaction Status Date / Time olanzapine [From Zyprexa] Allergy Nausea Verified 02/15/19 18:02 Home Medications Medication Instructions Recorded Confirmed Last Taken Type Atenolol [Tenormin] 50 mg PO QDAY #30 tablet 12/30/17 02/19/19 Unknown Rx amLODIPine 5 mg PO QDAY #30 tablet 12/30/17 02/19/19 Unknown Rx Ibuprofen [Motrin 800 MG tab] 800 mg PO Q8HR PRN #10 tablet 01/06/19 02/19/19 Unknown Rx Folic Acid [Folvite] 1 mg PO DAILY #30 tablet 01/15/19 02/19/19 Unknown Rx Multivitamin Tab [Multiple Vitamin 1 each PO DAILY #30 tablet 01/15/19 02/19/19 Unknown Rx TAB (Theragran)] Thiamine [Vitamin B-1] 100 mg PO QDAY #30 tablet 01/15/19 02/19/19 Unknown Rx Phenytoin [Dilantin] 100 mg PO Q8HR 15 Days #45 capsule 02/15/19 02/19/19 Unknown Rx Active Meds: Active Medications Lorazepam (Ativan) 4 mg IV Q1H PRN PRN Reason: Rolando Last Admin: 02/19/19 00:30 Dose: 4 mg Documented by: Lorazepam (Ativan) 2 mg IV Q1H PRN PRN Reason: PHYLLISAr 8-15 Last Admin: 02/19/19 03:41 Dose: 2 mg Documented by: Lorazepam (Ativan) 4 mg IV Q15MIN PRN PRN Reason: CIWA-Ar >25 Review of Systems All systems: negative Constitutional: weakness, lethargy, no weight loss, no weight gain, no fever, no chills, no sweats, no night sweats, no anorexia, no fatigue, no malaise, no chronic headaches, no poor appetite, no daytime sleepiness, no chronic pain Cardiovascular: no chest pain Respiratory: no cough, no cough with sputum, no excessive sputum, no hemoptysis, no shortness of breath, no dyspnea on exertion Neurological: seizures, tremors, lack of coordination, no change in speech, no change in mentation, no confusion, no memory loss Psychiatric: hallucinations Exam - Physical Exam Narrative exam: VITAL SIGNS: Reviewed. GENERAL: The patient appears normally developed, generalized tremor, flushed appearance. Vital signs as documented. HEAD: No signs of head trauma. EYES: Pupils are equal. Extraocular motions intact. EARS: Hearing grossly intact. MOUTH: Oropharynx is normal. NECK: No adenopathy, no JVD. CHEST: Chest with clear breath sounds bilaterally. No wheezes, rales, or rhonchi. CARDIAC: Tachycardia with regular rhythm. S1 and S2, without murmurs, gallops, or rubs. VASCULAR: Trace dependent edema. Peripheral pulses normal and equal in all extremities. ABDOMEN: Soft, non tender and non distended. No rebound or guarding, and no masses palpated. Bowel Sounds normal. MUSCULOSKELETAL: Good range of motion of all major joints. Extremities without clubbing, cyanosis. Trace dependent edema. NEUROLOGIC EXAM: Alert and oriented x 3 No focal sensory or strength deficits . Speech normal. Follows commands. PSYCHIATRIC: Mood normal. SKIN: detail exam as documented in skin assessment - Constitutional Vitals: Temp Pulse Resp BP Pulse Ox 99.8 F H 109 H 19 126/78 95 02/19/19 03:57 02/19/19 07:00 02/19/19 07:00 02/19/19 07:00 02/19/19 07:00 Results - Labs CBC & Chem 7: 02/18/19 22:04 02/18/19 22:04 Labs: Laboratory Last Values WBC 11.9 K/mm3 (4.5-11.0) H 02/18/19 22:04 RBC 3.93 M/mm3 (3.65-5.03) 02/18/19 22:04 Hgb 14.2 gm/dl (11.8-15.2) 02/18/19 22:04 Hct 40.1 % (35.5-45.6) 02/18/19 22:04 MCV 102 fl (84-94) H 02/18/19 22:04 MCH 36 pg (28-32) H 02/18/19 22:04 MCHC 36 % (32-34) H 02/18/19 22:04 RDW 15.2 % (13.2-15.2) 02/18/19 22:04 Plt Count 218 K/mm3 (140-440) 02/18/19 22:04 Sodium 125 mmol/L (137-145) L 02/18/19 22:04 Potassium 3.9 mmol/L (3.6-5.0) 02/18/19 22:04 Chloride 83.3 mmol/L (98-107) L 02/18/19 22:04 Carbon Dioxide 18 mmol/L (22-30) L 02/18/19 22:04 Anion Gap 28 mmol/L 02/18/19 22:04 BUN 8 mg/dL (9-20) L 02/18/19 22:04 Creatinine 0.5 mg/dL (0.8-1.5) L 02/18/19 22:04 Estimated GFR > 60 ml/min 02/18/19 22:04 BUN/Creatinine Ratio 16 % 02/18/19 22:04 Glucose 120 mg/dL (75-100) H 02/18/19 22:04 Calcium 9.9 mg/dL (8.4-10.2) 02/18/19 22:04 Magnesium 1.60 mg/dL (1.7-2.3) L 02/19/19 00:48 Urine Color Yellow (Yellow) 02/18/19 01:53 Urine Turbidity Clear (Clear) 02/18/19 01:53 Urine pH 7.0 (5.0-7.0) 02/18/19 01:53 Ur Specific [place] 1.010 (1.003-1.030) 02/18/19 01:53 Urine Protein 30 mg/dl mg/dL (Negative) 02/18/19 01:53 Urine Glucose (UA) Neg mg/dL (Negative) 02/18/19 01:53 Urine Ketones Tr mg/dL (Negative) 02/18/19 01:53 Urine Blood Neg (Negative) 02/18/19 01:53 Urine Nitrite Neg (Negative) 02/18/19 01:53 Urine Bilirubin Neg (Negative) 02/18/19 01:53 Urine Urobilinogen 4.0 mg/dL (<2.0) 02/18/19 01:53 Ur Leukocyte Esterase Tr (Negative) 02/18/19 01:53 Urine WBC (Auto) 5.0 /HPF (0.0-6.0) 02/18/19 01:53 Urine RBC (Auto) 3.0 /HPF (0.0-6.0) 02/18/19 01:53 U Epithel Cells (Auto) < 1.0 /HPF (0-13.0) 02/18/19 01:53 Urine Bacteria (Auto) 1+ /HPF (Negative) 02/18/19 01:53 Urine Mucus Few /HPF 02/18/19 01:53 Urine Opiates Screen Presumptive negative 02/18/19 01:53 Urine Methadone Screen Presumptive negative 02/18/19 01:53 Ur Barbiturates Screen Presumptive negative 02/18/19 01:53 Phenytoin 0.9 ug/mL (10.0-20.0) L 02/19/19 00:48 Ur Phencyclidine Scrn Presumptive negative 02/18/19 01:53 Ur Amphetamines Screen Presumptive negative 02/18/19 01:53 U Benzodiazepines Scrn Presumptive negative 02/18/19 01:53 Urine Cocaine Screen Presumptive negative 02/18/19 01:53 U Marijuana (THC) Screen Presumptive negative 02/18/19 01:53 Drugs of Abuse Note Disclamer 02/18/19 01:53 Plasma/Serum Alcohol < 0.01 % (0-0.07) 02/19/19 00:48 Assessment and Plan Assessment and plan: Patient is 63 years old male, homeless, history of seizure and chronic alcohol abuse, bipolar disorder with previous history of his withdrawal seizure and DTs. Patient presented to the ER stating that he had two seizures since yesterday. Patient stated that he is not feeling well. He also reported hearing voices and seeing stuff that is not there and was shaking at the time of presentation to the ED. He was diagnosed with DTs and was recommended for admission. The patient states he has been unable to refill his Dilantin as he is unable to walk to the pharmacist due to weakness and recurrent seizures. * In the ED he was noted to have a sodium of 125 was started on CIWA protocol he also received some Zofran. * He was admitted to [facility] but subsequently downgraded to [facility] * He is talking in complete sentences at this time. Diagnosis Delirium tremens Seizure secondary to alcohol withdrawal Alcohol withdrawal Severe hyponatremia Hypomagnesemia Hypophosphatemia Bipolar disorder Leukocytosis Severe metabolic acidosis Plan Patient clinically stable although still with tachycardia can be safely downgraded to MedSur with telemetry Give bolus normal saline 2 L and resume banana bag CIWA protocol Extensive counseling on compliance provided to the patient patient verbalized understanding he states that his bipolar disorder sometimes affects his thinking no acute manic episode at this time Obtain chest x-ray rule out any aspiration. He reports last drink was 2 days ago Replace electrolytes as needed 15 minutes tobacco cessation counseling also provided Recommended AA on discharge Nicotine patch as needed Case management consult for disposition. Plan discussed with the patient and the ED nurse at bedside. Advance Directives: Yes Plan of care discussed with patient/family: Yes
[2019-02-19] MEDS ORDERED: SODIUM CHLORIDE 0.9% 1000 ML 2,000 ML ONE (07:31)
[2019-02-19] MEDS ORDERED: LORazepam 2 MG/ML VIAL ONE (07:31)
[2019-02-19] MEDS ORDERED: LORazepam 2 MG/ML VIAL IV ONE (07:35)
[2019-02-19] MEDS ORDERED: SODIUM CHLORIDE 0.9% 1000 ML 1,000 ML IV ONE ×2 (07:35→07:36)
[2019-02-19] MEDS ORDERED: SODIUM CHLORIDE 0.9% 1000 ML 1,000 ML IV SCH ×2 (07:45→12:00)
--- NOTE | 2019-02-19 07:58 | XRay Report ---
CHEST 1 VIEW INDICATION / CLINICAL INFORMATION: ASPIRATION. COMPARISON: 01/16/2019 FINDINGS: SUPPORT DEVICES: None. HEART / MEDIASTINUM: No significant abnormality. LUNGS / PLEURA: No significant pulmonary or pleural abnormality. No pneumothorax. ADDITIONAL FINDINGS: No significant additional findings. IMPRESSION: 1. No significant change Signer Name: Abhishek Medel MD Signed: 02/19/2019 7:54 AM Workstation Name: [id number]
[2019-02-19] MEDS ORDERED: 1: FOLIC ACID 1 MG, MULTIPLE VITAMIN INJ, ADULT 10 ML, THIAMINE 100 MG in SODIUM CHLORID IV SCH (08:00)
[2019-02-19] MEDS ORDERED: MAGNESIUM SULFATE 2 GM in SODIUM CHLORIDE 0.9% 50 ML IV ONE (08:30)
[2019-02-19] MEDS: ACETAMINOPHEN 325 MG TAB PO PRN (10:19)
[2019-02-19] MEDS: atenoloL 50 MG TAB PO SCH (10:19)
[2019-02-19] MEDS: amLODIPine 5 MG TAB PO SCH (10:20)
[2019-02-19] MEDS: HEPARIN 5,000 UNIT/1 ML VIAL SUB-Q SCH ×2 (10:21→22:52)
[2019-02-19] MEDS: THIAMINE 100 MG, FOLIC ACID 1 MG, MULTIPLE VITAMIN INJ, ADULT 10 ML in SODIUM CHLORIDE ... IV SCH (12:59)
[2019-02-19] MEDS ORDERED: PHENYTOIN 100 MG CAPSULE.ER PO SCH (14:00)
[2019-02-19] MEDS: PHENYTOIN 100 MG/2 ML VIAL IV SCH ×2 (16:31→22:51)
[2019-02-19] MEDS: SODIUM CHLORIDE 0.9% 1000 ML 1,000 ML IV SCH (22:51)
[2019-02-20] MEDS: LORazepam 2 MG/ML VIAL IV PRN ×3 (00:28→18:00)
[2019-02-20] MEDS: ACETAMINOPHEN 325 MG TAB PO PRN (00:28)
[2019-02-20] MEDS: PHENYTOIN 100 MG/2 ML VIAL IV SCH ×2 (05:28→18:43)
[2019-02-20] MEDS: SODIUM CHLORIDE 0.9% 1000 ML 1,000 ML IV SCH ×2 (06:45→21:35)
[2019-02-20 07:58] LABS: BUN/Creatinine Ratio 11; Blood Urea Nitrogen 8 mg/dL (9-20); Calcium 8.4 mg/dL (8.4-10.2)
[2019-02-20 07:59] LABS: Alanine Aminotransferase 13 units/L (7-56); Albumin 3.5 g/dL (3.9-5); Hemolysis Index 4
[2019-02-20] MEDS: atenoloL 50 MG TAB PO SCH (09:21)
[2019-02-20] MEDS: amLODIPine 5 MG TAB PO SCH (09:21)
[2019-02-20] MEDS: HEPARIN 5,000 UNIT/1 ML VIAL SUB-Q SCH ×2 (09:22→21:34)
[2019-02-20] MEDS ORDERED: MAGNESIUM SULFATE 1 GM in SODIUM CHLORIDE 0.9% 50 ML IV ONE (09:30)
[2019-02-20] MEDS: THIAMINE 100 MG, FOLIC ACID 1 MG, MULTIPLE VITAMIN INJ, ADULT 10 ML in SODIUM CHLORIDE ... IV SCH (10:35)
[2019-02-20] MEDS ORDERED: FLU VACC QUAD 2019-20 (3 YR UP)/PF 60 MCG/0.5 ML SYRINGE IM ONE (12:00)
[2019-02-20] MEDS: POTASSIUM CHLORIDE 10 MEQ 10 MEQ/100 ML BAG IV SCH ×2 (13:01→13:02)
--- NOTE | 2019-02-20 17:50 | Progress Note ---
Assessment and Plan Assessment and plan: Patient is 63 years old male, homeless, history of seizure and chronic alcohol abuse, bipolar disorder with previous history of his withdrawal seizure and DTs. Patient presented to the ER stating that he had two seizures since yesterday. Patient stated that he is not feeling well. He also reported hearing voices and seeing stuff that is not there and was shaking at the time of presentation to the ED. He was diagnosed with DTs and was recommended for admission. The patient states he has been unable to refill his Dilantin as he is unable to walk to the pharmacist due to weakness and recurrent seizures. * In the ED he was noted to have a sodium of 125 was started on CIWA protocol he also received some Zofran. * He was admitted to [facility] but subsequently downgraded to [facility] * He is talking in complete sentences at this time. * Chest x-ray reviewed shows no acute pathology Diagnosis Delirium tremens Seizure secondary to alcohol withdrawal Alcohol withdrawal Severe hyponatremia Hypokalemia Hypomagnesemia Hypophosphatemia Bipolar disorder Leukocytosis Severe metabolic acidosis Plan Continue supportive care We will likely see a further reduction in CIWA score prior to discharge CIWA protocol Sodium is improved, chest x-ray reviewed as noted above. Extensive counseling on compliance provided to the patient patient verbalized understanding he states that his bipolar disorder sometimes affects his thinking no acute manic episode at this time He reports last drink was 2 days ago Replace electrolytes as needed 15 minutes tobacco cessation counseling also provided Recommended AA on discharge Nicotine patch as needed Case management consult for disposition. Plan discussed with the patient and the ED nurse at bedside. Anticipation for discharge tomorrow History Interval history: Patient seen and examined still with increased delirium with a CIWA score of 10 requiring multiple doses of Ativan. Denies any chest pain at this time. Denies any nausea vomiting. Still feels that he has food poisoning but after discussion with him he does understand that his alcoholism played a big role to this. No further diarrhea noted today. Hospitalist Physical - Physical exam Narrative exam: VITAL SIGNS: Reviewed. GENERAL: The patient appears normally developed, generalized tremor, a little more calm today. Vital signs as documented. HEAD: No signs of head trauma. EYES: Pupils are equal. Extraocular motions intact. EARS: Hearing grossly intact. MOUTH: Oropharynx is normal. NECK: No adenopathy, no JVD. CHEST: Chest with clear breath sounds bilaterally. No wheezes, rales, or rhonchi. CARDIAC: Tachycardia with regular rhythm. S1 and S2, without murmurs, gallops, or rubs. VASCULAR: Trace dependent edema. Peripheral pulses normal and equal in all e xtremities. ABDOMEN: Soft, non tender and non distended. No rebound or guarding, and no masses palpated. Bowel Sounds normal. MUSCULOSKELETAL: Good range of motion of all major joints. Extremities without clubbing, cyanosis. Trace dependent edema. NEUROLOGIC EXAM: Alert and oriented x 3 No focal sensory or strength deficits. Speech normal. Follows commands. PSYCHIATRIC: Mood normal. SKIN: detail exam as documented in skin assessment - Constitutional Vitals: Temp Pulse Resp BP Pulse Ox 98.0 F 81 20 158/89 95 02/20/19 12:44 02/20/19 12:44 02/20/19 12:44 02/20/19 12:44 02/20/19 12:44 Results - Labs CBC & Chem 7: 02/18/19 22:04 02/20/19 07:10 Labs: Laboratory Last Values WBC 11.9 K/mm3 (4.5-11.0) H 02/18/19 22:04 RBC 3.93 M/mm3 (3.65-5.03) 02/18/19 22:04 Hgb 14.2 gm/dl (11.8-15.2) 02/18/19 22:04 Hct 40.1 % (35.5-45.6) 02/18/19 22:04 MCV 102 fl (84-94) H 02/18/19 22:04 MCH 36 pg (28-32) H 02/18/19 22:04 MCHC 36 % (32-34) H 02/18/19 22:04 RDW 15.2 % (13.2-15.2) 02/18/19 22:04 Plt Count 218 K/mm3 (140-440) 02/18/19 22:04 Sodium 133 mmol/L (137-145) L 02/20/19 07:10 Potassium 3.1 mmol/L (3.6-5.0) L D 02/20/19 07:10 Chloride 97.0 mmol/L (98-107) L 02/20/19 07:10 Carbon Dioxide 22 mmol/L (22-30) 02/20/19 07:10 Anion Gap 17 mmol/L 02/20/19 07:10 BUN 8 mg/dL (9-20) L 02/20/19 07:10 Creatinine 0.7 mg/dL (0.8-1.5) L 02/20/19 07:10 Estimated GFR > 60 ml/min 02/20/19 07:10 BUN/Creatinine Ratio 11 % 02/20/19 07:10 Glucose 105 mg/dL (75-100) H 02/20/19 07:10 Calcium 8.4 mg/dL (8.4-10.2) D 02/20/19 07:10 Magnesium 1.60 mg/dL (1.7-2.3) L 02/19/19 00:48 Total Bilirubin 0.80 mg/dL (0.1-1.2) 02/20/19 07:10 AST 17 units/L (5-40) 02/20/19 07:10 ALT 13 units/L (7-56) 02/20/19 07:10 Alkaline Phosphatase 83 units/L (35-129) 02/20/19 07:10 Ammonia 61.0 umol/L (25-60) H 02/19/19 10:57 Total Protein 6.1 g/dL (6.3-8.2) L 02/20/19 07:10 Albumin 3.5 g/dL (3.9-5) L 02/20/19 07:10 Albumin/Globulin Ratio 1.3 % 02/20/19 07:10 Urine Color Yellow (Yellow) 02/18/19 01:53 Urine Turbidity Clear (Clear) 02/18/19 01:53 Urine pH 7.0 (5.0-7.0) 02/18/19 01:53 Ur Specific [place] 1.010 (1.003-1.030) 02/18/19 01:53 Urine Protein 30 mg/dl mg/dL (Negative) 02/18/19 01:53 Urine Glucose (UA) Neg mg/dL (Negative) 02/18/19 01:53 Urine Ketones Tr mg/dL (Negative) 02/18/19 01:53 Urine Blood Neg (Negative) 02/18/19 01:53 Urine Nitrite Neg (Negative) 02/18/19 01:53 Urine Bilirubin Neg (Negative) 02/18/19 01:53 Urine Urobilinogen 4.0 mg/dL (<2.0) 02/18/19 01:53 Ur Leukocyte Esterase Tr (Negative) 02/18/19 01:53 Urine WBC (Auto) 5.0 /HPF (0.0-6.0) 02/18/19 01:53 Urine RBC (Auto) 3.0 /HPF (0.0-6.0) 02/18/19 01:53 U Epithel Cells (Auto) < 1.0 /HPF (0-13.0) 02/18/19 01:53 Urine Bacteria (Auto) 1+ /HPF (Negative) 02/18/19 01:53 Urine Mucus Few /HPF 02/18/19 01:53 Urine Opiates Screen Presumptive negative 02/18/19 01:53 Urine Methadone Screen Presumptive negative 02/18/19 01:53 Ur Barbiturates Screen Presumptive negative 02/18/19 01:53 Phenytoin 0.9 ug/mL (10.0-20.0) L 02/19/19 00:48 Ur Phencyclidine Scrn Presumptive negative 02/18/19 01:53 Ur Amphetamines Screen Presumptive negative 02/18/19 01:53 U Benzodiazepines Scrn Presumptive negative 02/18/19 01:53 Urine Cocaine Screen Presumptive negative 02/18/19 01:53 U Marijuana (THC) Screen Presumptive negative 02/18/19 01:53 Drugs of Abuse Note Disclamer 02/18/19 01:53 Plasma/Serum Alcohol < 0.01 % (0-0.07) 02/19/19 00:48 Active Medications - Current Medications Current Medications: Generic Name Dose Route Start Last Admin Trade Name Freq PRN Reason Stop Dose Admin Acetaminophen 650 mg 02/19/19 07:28 02/20/19 00:28 Tylenol PO 650 mg Q6H PRN Administration Pain MILD(1-3)/Fever >100.5/CAAL Amlodipine Besylate 5 mg 02/19/19 10:00 02/20/19 09:21 Amlodipine PO 5 mg QDAY DG Administration Atenolol 50 mg 02/19/19 10:00 02/20/19 09:21 Tenormin PO 50 mg QDAY DG Administration Heparin Sodium (Porcine) 5,000 unit 02/19/19 10:00 02/20/19 09:22 Heparin SUB-Q 5,000 unit Q12HR DG Administration Thiamine HCl 100 mg/ Folic 1,011.2 mls @ 125 mls/hr 02/19/19 10:00 02/20/19 10:35 Acid 1 mg/ Multivitamins/ IV 125 mls/hr Minerals 10 ml/ Sodium DAILY DG Administration Chloride Sodium Chloride 1,000 mls @ 125 mls/hr 02/19/19 15:00 02/20/19 06:45 Nacl 0.9% 1000 Ml IV 125 mls/hr DIRECT DG Administration Lorazepam 4 mg 02/18/19 23:56 02/19/19 00:30 Ativan IV 4 mg Q1H PRN Administration CIWA-Ar 16-25 Lorazepam 2 mg 02/18/19 23:56 02/20/19 09:26 Ativan IV 2 mg Q1H PRN Administration CIWA-Ar 8-15 Lorazepam 4 mg 02/18/19 23:56 Ativan IV Q15MIN PRN CIWA-Ar >25 Phenytoin 100 mg 02/19/19 14:00 02/20/19 05:28 Dilantin IV 100 mg Q8HR DG Administration Sodium Chloride 10 ml 02/19/19 10:00 02/20/19 10:38 Sodium Chloride Flush Syringe 10 Ml IV 10 ml BID DG Administration Sodium Chloride 10 ml 02/19/19 07:28 Sodium Chloride Flush Syringe 10 Ml IV PRN PRN LINE FLUSH Nutrition/Malnutrition Assess - Dietary Evaluation Nutrition/Malnutrition Findings: Nutrition Notes Start: 02/20/19 11:49 Freq: Status: Active Protocol: Document 02/20/19 11:49 CW (Rec: 02/20/19 11:52 CW [id number]) Co-Sign 02/20/19 11:49 LP Nutrition Notes Need for Assessment generated from: [employer] Initial or Follow up Brief Note Subjective/Other Information Pt. has a screen risk assessment of 21; nutrition screening not needed Nutrition Intervention Revisit per MD consult or patient Sign Off request:
[2019-02-20] MEDS: PHENYTOIN 100 MG CAPSULE.ER PO SCH (21:33)
[2019-02-21] MEDS: PHENYTOIN 100 MG CAPSULE.ER PO SCH ×2 (05:30→14:12)
[2019-02-21] MEDS: ACETAMINOPHEN 325 MG TAB PO PRN (06:34)
[2019-02-21] MEDS: LORazepam 2 MG/ML VIAL IV PRN (06:35)
[2019-02-21 07:29] LABS: Hematocrit 37.5 % (35.5-45.6); Hemoglobin 13.2 gm/dl (11.8-15.2); Mean Corpuscular HGB Conc 35 % (32-34); Mean Corpuscular Volume 101 fl (84-94); Platelet Count 164 K/mm3 (140-440); Red Cell Distribution Width 14.5 % (13.2-15.2)
[2019-02-21 07:57] LABS: BUN/Creatinine Ratio 8; Blood Urea Nitrogen 5 mg/dL (9-20); Calcium 8.3 mg/dL (8.4-10.2); Hemolysis Index 4
--- NOTE | 2019-02-21 09:42 | Discharge Summary ---
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 Patient presented to the ER stating that he had two seizures since yesterday. Patient stated that he is not feeling well. He also reported hearing voices and seeing stuff that is not there and was shaking at the time of presentation to the ED. He was diagnosed with DTs and was recommended for admission. The patient states he has been unable to refill his Dilantin as he is unable to walk to the pharmacist due to weakness and recurrent seizures. * In the ED he was noted to have a sodium of 125 was started on CIWA protocol he also received some Zofran. * He was admitted to [facility] but subsequently downgraded to [facility] * He is talking in complete sentences at this time. * Chest x-ray reviewed shows no acute pathology * Patient was treated with [place] protocol and electrolyte replacement with good results. Patient was also noted to be encephalopathic with elevated ammonia level lactulose was initiated and was discharged on the same. His clinical condition is stable we did have extensive discussion on need to be compliant patient verbalized understanding. * Extensive counseling was provided to the patient the need to quit alcohol use he verbalized understanding. Diagnosis Delirium tremens Metabolic Encephalopathy Seizure secondary to alcohol withdrawal Alcohol withdrawal Severe hyponatremia Hypokalemia Hypomagnesemia Hypophosphatemia Bipolar disorder Leukocytosis Severe metabolic acidosis Disposition: DC-01 TO HOME OR SELFCARE Time spent for discharge: Thought approximately Core Measure Documentation - Palliative Care Palliative Care/ Comfort Measures: Not Applicable - Core Measures Any of the following diagnoses?: none Exam - Physical Exam Narrative exam: VITAL SIGNS: Reviewed. GENERAL: The patient appears normally developed, tremor greatly improved. Vital signs as documented. HEAD: No signs of head trauma. EYES: Pupils are equal. Extraocular motions intact. EARS: Hearing grossly intact. MOUTH: Oropharynx is normal. NECK: No adenopathy, no JVD. CHEST: Chest with clear breath sounds bilaterally. No wheezes, rales, or rhonchi. CARDIAC: Tachycardia with regular rhythm. S1 and S2, without murmurs, gallops, or rubs. VASCULAR: Trace dependent edema. Peripheral pulses normal and equal in all extremities. ABDOMEN: Soft, non tender and non distended. No rebound or guarding, and no masses palpated. Bowel Sounds normal. MUSCULOSKELETAL: Good range of motion of all major joints. Extremities without clubbing, cyanosis. Trace dependent edema. NEUROLOGIC EXAM: Alert and oriented x 3 No focal sensory or strength deficits. Speech normal. Follows commands. PSYCHIATRIC: Mood normal. SKIN: detail exam as documented in skin assessment - Constitutional Vitals: Temp Pulse Resp BP Pulse Ox 98.3 F 90 17 177/105 96 02/21/19 04:51 02/21/19 04:51 02/21/19 07:20 02/21/19 04:51 02/21/19 04:51 Plan Activity: advance as tolerated, fall precautions Diet: low fat Special Instructions: record daily BP diary, smoking cessation (also quit etoh) Follow up with: [facility] [Outside] - 7 Days Prescriptions: amLODIPine 5 mg PO QDAY #30 tablet Lactulose [Cephulac] 20 gm PO Q6HR #30 oral.liqd Phenytoin [Dilantin] 100 mg PO Q8HR #90 capsule.er Folic Acid [Folvite] 1 mg PO DAILY #30 tablet chlordiazePOXIDE [Librium] 25 mg PO Q8H #20 capsule Multivitamin Tab [Multiple Vitamin TAB (Theragran)] 1 each PO DAILY #30 tablet Atenolol [Tenormin] 50 mg PO QDAY #30 tablet Thiamine [Vitamin B-1] 100 mg PO QDAY #30 tablet
[2019-02-21] MEDS ORDERED: MAGNESIUM SULFATE 1 GM in SODIUM CHLORIDE 0.9% 50 ML IV ONE (10:30)
[2019-02-21] MEDS: POTASSIUM CHLORIDE 10 MEQ 10 MEQ/100 ML BAG IV SCH ×4 (10:33→14:11)
[2019-02-21] MEDS: atenoloL 50 MG TAB PO SCH (10:33)
[2019-02-21] MEDS: amLODIPine 5 MG TAB PO SCH (10:33)
[2019-02-21] MEDS: HEPARIN 5,000 UNIT/1 ML VIAL SUB-Q SCH (10:38)
[2019-02-21] MEDS: THIAMINE 100 MG, FOLIC ACID 1 MG, MULTIPLE VITAMIN INJ, ADULT 10 ML in SODIUM CHLORIDE ... IV SCH (11:40)
[2019-02-21] MEDS ORDERED: LACTULOSE 20 GM/30 ML ORAL LIQD PO SCH (12:00)
[2019-02-21 12:18] VITALS: BP 151/88
== END 2019-02-21 17:54 | disposition home or self-care (01) | DRG 101 ==
LOC: ED 21:01 → IMCU 02-19 04:43 → 3A 02-19 08:36
PROVIDERS: ADMIT Emergency Medicine; ATTEND Internal Medicine
DX: G40.909 Epilepsy, unspecified, not intractable, without status epilepticus (principal); F10.231 Alcohol dependence with withdrawal delirium; E87.1 Hypo-osmolality and hyponatremia; E87.2 Acidosis; E87.6 Hypokalemia; E83.42 Hypomagnesemia; E83.39 Other disorders of phosphorus metabolism; F31.9 Bipolar disorder, unspecified; D72.829 Elevated white blood cell count, unspecified; Z59.0 Homelessness; F41.9 Anxiety disorder, unspecified; Z60.2 Problems related to living alone; J45.909 Unspecified asthma, uncomplicated; I10 Essential (primary) hypertension; Z88.8 Allergy status to other drugs, medicaments and biological substances
CPT/HCPCS: 36415; 71045; 80048; 80053; 80185; 80307; 80320; 81001; 82140; 83735; 84295; 85027; 87116; 90686; 99406; G0378; G0480; J1165; J1644; J2060; J2405; J3411; J3475; J3480; J7030; J7050

== ENCOUNTER 2019-02-22 03:06 | Emergency (ER) | payer SELFPAY ==
[2019-02-22 04:07] LABS: Basophils % (Auto) 0.9 % (0.0-1.8); Eosinophils # (Auto) 0.1 K/mm3 (0.0-0.4); Eosinophils % (Auto) 1.7 % (0.0-4.3); Hematocrit 39.6 % (35.5-45.6); Lymphocytes # (Auto) 0.9 K/mm3 (1.2-5.4); Lymphocytes % (Auto) 18.6 % (13.4-35.0); Mean Corpuscular HGB Conc 35 % (32-34); Mean Corpuscular Volume 101 fl (84-94); Monocytes # (Auto) 0.7 K/mm3 (0.0-0.8); Monocytes % (Auto) 13.8 % (0.0-7.3); Platelet Count 203 K/mm3 (140-440); Red Blood Count 3.92 M/mm3 (3.65-5.03); Red Cell Distribution Width 14.7 % (13.2-15.2)
[2019-02-22 04:34] LABS: Alanine Aminotransferase 14 units/L (7-56); Albumin 3.9 g/dL (3.9-5); BUN/Creatinine Ratio 10; Blood Urea Nitrogen 5 mg/dL (9-20); Calcium 8.8 mg/dL (8.4-10.2); Hemolysis Index 6
--- NOTE | 2019-02-22 05:22 | Cat Scan Report ---
Head CT without intravenous contrast INDICATION: Seizure COMPARISON: 01/16/2019 FINDINGS: The ventricles are normal in size and position. No hemorrhage or extra-axial fluid collecti on. No edema or mass effect. No focal infarct seen. Portions of the sinuses visualized are clear. No skull fracture identified. May be a small right-sided scalp hematoma. IMPRESSION: Negative head CT Automated exposure control was utilized to diminish radiation dose Signer Name: Abhishek Medel MD Signed: 02/22/2019 5:18 AM Workstation Name: [id number]
--- NOTE | 2019-02-22 05:27 | Cat Scan Report ---
CT of the cervical spine INDICATION: Neck pain following injury tonight FINDINGS: The vertebral body heights are intact with no compression fracture seen. There is moderate to severe disc space narrowing throughout the cervical spine with moderate sized anterior spurs at se veral levels. No subluxation is seen however. There is mild facet arthropathy but no posterior elemen t fracture or facet lock. No evidence of epidural hematoma. The odontoid spinous processes are intact . IMPRESSION: Moderate to severe cervical spondylosis. No acute traumatic abnormality. All CT scans at this location are performed using CT dose reduction for ALARA by means of automated e xposure control Signer Name: Abhishek Medel MD Signed: 02/22/2019 5:22 AM Workstation Name: [id number]
[2019-02-22] MEDS ORDERED: FOSPHENYTOIN 1,000 MG.PE in SODIUM CHLORIDE 0.9% 100 ML IV ONE (07:48)
--- NOTE | 2019-02-22 07:59 | Emergency Department Report ---
HPI - General Chief Complaint: Seizure Time Seen by Provider: 02/22/19 07:48 - HPI HPI: Room 9 The patient is a 63-year-old male presented with a chief complaint of seizures. The patient has a history of seizure disorder but states he has not been taking his Dilantin because he cannot afford the medication. The patient states she is also homeless. The patient had a seizure last night states he injured his left hip during the fall. Location: [See above] Duration: [See above] Quality: [See above] Severity: [See above] Timing: [See above] Context: [See above] Modifying factors: [See above] Associated signs and symptoms: [see above] ED Past Medical Hx - Past Medical History Hx Hypertension: Yes Hx Seizures: Yes Hx Psychiatric Treatment: Yes (anxiety psychosis) Hx Asthma: Yes Additional medical history: Other Hx is unclear - Surgical History Additional Surgical History: R knee surgery, left lung injury HIP SURGERY - Family History Family history: no significant - Social History Smoking Status: Current Some Day Smoker Substance Use Type: Alcohol - Medications Home Medications: Home Medications Medication Instructions Recorded Confirmed Last Taken Type Folic Acid [Folvite] 1 mg PO DAILY #30 tablet 02/21/19 Unknown Rx Lactulose [Cephulac] 20 gm PO Q6HR #30 oral.liqd 02/21/19 Unknown Rx Multivitamin Tab [Multiple Vitamin 1 each PO DAILY #30 tablet 02/21/19 Unknown Rx TAB (Theragran)] Phenytoin [Dilantin] 100 mg PO Q8HR #90 capsule.er 02/21/19 Unknown Rx Thiamine [Vitamin B-1] 100 mg PO QDAY #30 tablet 02/21/19 Unknown Rx amLODIPine 5 mg PO QDAY #30 tablet 02/21/19 Unknown Rx atenoloL [Tenormin] 50 mg PO QDAY #30 tablet 02/21/19 Unknown Rx chlordiazePOXIDE [Librium] 25 mg PO Q8H #20 capsule 02/21/19 Unknown Rx ED Review of Systems ROS: Stated complaint: SEIZURE Other details as noted in HPI Constitutional: no symptoms reported Eyes: denies: eye pain ENT: denies: throat pain Respiratory: no symptoms reported Cardiovascular: denies: chest pain Gastrointestinal: denies: abdominal pain Musculoskeletal: arthralgia Neurological: other (seizure) Physical Exam - Physical Exam Vital Signs: Vital Signs 02/22/19 03:21 Temperature 97.7 F Pulse Rate 75 Respiratory 20 Rate Blood Pressure 166/91 O2 Sat by Pulse 99 Oximetry Physical Exam: GENERAL: The patient is well-developed male with poor hygiene, smelling of urine HEENT: Normocephalic. Atraumatic. Extraocular motions are intact. Patient has moist mucous membranes. NECK: Trachea midline CHEST/LUNGS: There is no respiratory distress noted. SKIN: There is no diaphoresis. NEURO: The patient is awake, alert, and oriented. The patient is cooperative. The patient has no focal neurologic deficits. The patient has normal speech. Cranial nerves II through XII grossly intact MUSCULOSKELETAL: There is no evidence of acute injury. ED Course Vital Signs 02/22/19 03:21 Temperature 97.7 F Pulse Rate 75 Respiratory 20 Rate Blood Pressure 166/91 O2 Sat by Pulse 99 Oximetry ED Medical Decision Making - Lab Data Result diagrams: 02/22/19 03:51 02/22/19 03:51 Laboratory Tests 02/22/19 02/22/19 02/22/19 03:51 03:51 03:51 WBC 5.0 RBC 3.92 Hgb 14.0 Hct 39.6 MCV 101 H MCH 36 H MCHC 35 H RDW 14.7 Plt Count 203 Lymph % (Auto) 18.6 Powell % (Auto) 13.8 H Eos % (Auto) 1.7 Baso % (Auto) 0.9 Lymph # 0.9 L Powell # 0.7 Eos # 0.1 Baso # 0.0 Seg Neutrophils % 65.0 Seg Neutrophils # 3.3 Sodium Potassium Chloride Carbon Dioxide Anion Gap BUN Creatinine Estimated GFR BUN/Creatinine Ratio Glucose Calcium Magnesium 1.50 L Total Bilirubin AST ALT Alkaline Phosphatase Total Protein Albumin Albumin/Globulin Ratio Phenytoin 1.7 L Plasma/Serum Alcohol 02/22/19 02/22/19 03:51 03:51 WBC RBC Hgb Hct MCV MCH MCHC RDW Plt Count Lymph % (Auto) [place] % (Auto) Eos % (Auto) Baso % (Auto) Lymph # Powell # Eos # Baso # Seg Neutrophils % Seg Neutrophils # Sodium 130 L Potassium 3.4 L Chloride 96.7 L Carbon Dioxide 19 L Anion Gap 18 BUN 5 L Creatinine 0.5 L Estimated GFR > 60 BUN/Creatinine Ratio 10 Glucose 95 Calcium 8.8 Magnesium Total Bilirubin 0.40 AST 19 ALT 14 Alkaline Phosphatase 94 Total Protein 6.7 Albumin 3.9 Albumin/Globulin Ratio 1.4 Phenytoin Plasma/Serum Alcohol 0.02 - Radiology Data Radiology results: report reviewed (CT head, CT cervical spine, left hip x-ray), image reviewed (CT head, CT cervical spine) Left hip x-ray (read by radiologist)-left hip prosthesis which appears to be normally located [address] [address] Cat Scan Report Signed Patient: ANDREW RASHID MR#: [id number] : 1955 Acct:[id number] Age/Sex: 63 / M ADM Date: 02/22/19 Loc: ED Attending Dr: Ordering Physician: KAVYA GORDON MD Date of Service: 02/22/19 Procedure(s): CT head/brain wo con Accession Number(s): [id number] cc: KAVYA GORDON MD Head CT without intravenous contrast INDICATION: Seizure COMPARISON: 01/16/2019 FINDINGS: The ventricles are normal in size and position. No hemorrhage or extra-axial fluid collection. No edema or mass effect. No focal infarct seen. Portions of the sinuses visualized are clear. No skull fracture identified. May be a small right-sided scalp hematoma. IMPRESSION: Negative head CT Automated exposure control was utilized to diminish radiation dose Signer Name: Abhishek Medel MD Signed: 02/22/2019 5:18 AM Workstation Name: [id number] Transcribed By: Dictated By: Abhishek Medel MD Electronically Authenticated By: Abhishek Medel MD Signed Date/Time: 02/22/19517 DD/ 4 TD/TT: [address] [address] Cat Scan Report Signed Patient: ANDREW RASHID MR#: [id number] : 1955 Acct:[id number] Age/Sex: 63 / M ADM Date: 02/22/19 Loc: ED Attending Dr: Ordering Physician: KAVYA GORDON MD Date of Service: 02/22/19 Procedure(s): CT cervical spine wo con Accession Number(s): [id number] cc: KAVYA GORDON MD CT of the cervical spine INDICATION: Neck pain following injury tonight FINDINGS: The vertebral body heights are intact with no compression fracture seen. There is moderate to severe disc space narrowing throughout the cervical spine with moderate sized anterior spurs at several levels. No subluxation is seen however. There is mild facet arthropathy but no posterior element fracture or facet lock. No evidence of epidural hematoma. The odontoid spinous processes are intact. IMPRESSION: Moderate to severe cervical spondylosis. No acute traumatic abnormality. All CT scans at this location are performed using CT dose reduction for ALARA by means of automated exposure control Signer Name: Abhishek Medel MD Signed: 02/22/2019 5:22 AM Workstation Name: [id number] Transcribed By: DELILAH Dictated By: Abhishek Medel MD Electronically Authenticated By: Abhishek Medel MD Signed Date/Time: 02/22/19521 DD/ 7 TD/TT: - Differential Diagnosis seizure Critical care attestation.: If time is entered above; I have spent that time in minutes in the direct care of this critically ill patient, excluding procedure time. ED Disposition Clinical Impression: Seizure secondary to subtherapeutic anticonvulsant medication, Left hip pain, Homelessness Disposition: -01 TO HOME OR SELFCARE Is pt being admited?: No Does the pt Need Aspirin: No Condition: Stable Referrals: PRIMARY CARE, [Primary Care Provider] - 3-5 Days Time of Disposition: 11:15 (dispo per social work)
--- NOTE | 2019-02-22 08:28 | XRay Report ---
LEFT HIP 3 VIEWS INDICATION / CLINICAL INFORMATION: pain after fall. COMPARISON: 02/15/2019 FINDINGS: Left bipolar hip prosthesis is present and appears to be normally located. No other significant skele luke abnormality. No change from prior examination dated 02/15/2019 Signer Name: Ken Dye MD FACWendy Signed: 02/22/2019 8:23 AM Workstation Name: [id number]
[2019-02-22 08:52] VITALS: BP 152/88
== END 2019-02-22 10:29 | disposition home or self-care (01) ==
LOC: ED 03:06
DX: R56.9 Unspecified convulsions (principal); M25.552 Pain in left hip; J45.909 Unspecified asthma, uncomplicated; F41.9 Anxiety disorder, unspecified; F17.200 Nicotine dependence, unspecified, uncomplicated; Z79.899 Other long term (current) drug therapy; Z88.6 Allergy status to analgesic agent
CPT/HCPCS: 36415; 70450; 72125; 73502; 80053; 80185; 83735; 85025; 96365; 99285; Q2009; 80320; G0480

== ENCOUNTER 2019-03-08 23:36 | Emergency (ER) | payer SELFPAY ==
[2019-03-09 02:33] VITALS: BP 167/89
[2019-03-09] MEDS ORDERED: KETOROLAC 60 MG/2 ML INJ IM ONE (02:58)
--- NOTE | 2019-03-09 03:35 | XRay Report ---
LEFT HIP 2 VIEWS INDICATION / CLINICAL INFORMATION: pain after fall. COMPARISON: None available. FINDINGS: Left hip prosthesis. No fracture or other acute abnormality. Signer Name: Mayank Rogers MD Signed: 03/09/2019 3:31 AM Workstation Name: [id number]
[2019-03-09 03:39] LABS: Basophils # (Auto) 0.1 K/mm3 (0.0-0.1); Basophils % (Auto) 1.5 % (0.0-1.8); Eosinophils # (Auto) 0.1 K/mm3 (0.0-0.4); Eosinophils % (Auto) 1.5 % (0.0-4.3); Hemoglobin 14.2 gm/dl (11.8-15.2); Lymphocytes # (Auto) 1.3 K/mm3 (1.2-5.4); Lymphocytes % (Auto) 22.1 % (13.4-35.0); Mean Corpuscular HGB Conc 35 % (32-34); Mean Corpuscular Volume 102 fl (84-94); Monocytes # (Auto) 0.9 K/mm3 (0.0-0.8); Monocytes % (Auto) 15.1 % (0.0-7.3); Platelet Count 313 K/mm3 (140-440); Red Blood Count 3.92 M/mm3 (3.65-5.03); Red Cell Distribution Width 14.9 % (13.2-15.2)
[2019-03-09 03:59] LABS: BUN/Creatinine Ratio 15; Blood Urea Nitrogen 9 mg/dL (9-20); Calcium 8.7 mg/dL (8.4-10.2); Hemolysis Index 22
[2019-03-09] MEDS ORDERED: PHENYTOIN 1,000 MG in SODIUM CHLORIDE 0.9% 250ML 250 ML IV ONE (04:29)
--- NOTE | 2019-03-09 05:04 | Emergency Department Report ---
ED Seizure HPI - General Chief Complaint: Seizure Stated Complaint: POSS SEIZURE Time Seen by Provider: 03/09/19 02:54 Source: patient, EMS Mode of arrival: Stretcher Limitations: Physical Limitation - History of Present Illness Initial Comments: 63-year-old male with a past medical history of asthma and seizure disorder as well as schizophrenia and anxiety who is presenting with history of seizures. Patient states that he has been out of his Dilantin for several weeks. Patient states he had several seizures today. Patient states during one of the seizures he may have fallen and hurt his left hip. He denies any current headache or head injury. Patient states that he does have a history of mental health issues however the patient states he is not homicidal suicidal or hearing voices at this time. - Related Data Previous Rx's Medication Instructions Recorded Last Taken Type Folic Acid [Folvite] 1 mg PO DAILY #30 tablet 02/21/19 Unknown Rx Lactulose [Cephulac] 20 gm PO Q6HR #30 oral.liqd 02/21/19 Unknown Rx Multivitamin Tab [Multiple Vitamin 1 each PO DAILY #30 tablet 02/21/19 Unknown Rx TAB (Theragran)] Phenytoin [Dilantin] 100 mg PO Q8HR #90 capsule.er 02/21/19 Unknown Rx Thiamine [Vitamin B-1] 100 mg PO QDAY #30 tablet 02/21/19 Unknown Rx amLODIPine 5 mg PO QDAY #30 tablet 02/21/19 Unknown Rx atenoloL [Tenormin] 50 mg PO QDAY #30 tablet 02/21/19 Unknown Rx chlordiazePOXIDE [Librium] 25 mg PO Q8H #20 capsule 02/21/19 Unknown Rx Ibuprofen [Motrin 600 MG tab] 600 mg PO Q8H PRN #10 tablet 03/09/19 Unknown Rx Phenytoin [Dilantin] 100 mg PO Q8HR #90 capsule 03/09/19 Unknown Rx Allergies Allergy/AdvReac Type Severity Reaction Status Date / Time olanzapine [From Zyprexa] Allergy Nausea Verified 02/15/19 18:02 ED Review of Systems ROS: Stated complaint: POSS SEIZURE Other details as noted in HPI Comment: All other systems reviewed and negative ED Past Medical Hx - Past Medical History Previous Medical History?: Yes Hx Hypertension: Yes Hx Congestive Heart Failure: No Hx Diabetes: No Hx Seizures: Yes Hx Psychiatric Treatment: Yes (anxiety psychosis) Hx Asthma: Yes Hx COPD: No Additional medical history: Other Hx is unclear - Surgical History Past Surgical History?: Yes Additional Surgical History: R knee surgery, left lung injury HIP SURGERY - Social History Smoking Status: Current Some Day Smoker Substance Use Type: Alcohol - Medications Home Medications: Home Medications Medication Instructions Recorded Confirmed Last Taken Type Folic Acid [Folvite] 1 mg PO DAILY #30 tablet 02/21/19 Unknown Rx Lactulose [Cephulac] 20 gm PO Q6HR #30 oral.liqd 02/21/19 Unknown Rx Multivitamin Tab [Multiple Vitamin 1 each PO DAILY #30 tablet 02/21/19 Unknown Rx TAB (Theragran)] Phenytoin [Dilantin] 100 mg PO Q8HR #90 capsule.er 02/21/19 Unknown Rx Thiamine [Vitamin B-1] 100 mg PO QDAY #30 tablet 02/21/19 Unknown Rx amLODIPine 5 mg PO QDAY #30 tablet 02/21/19 Unknown Rx atenoloL [Tenormin] 50 mg PO QDAY #30 tablet 02/21/19 Unknown Rx chlordiazePOXIDE [Librium] 25 mg PO Q8H #20 capsule 02/21/19 Unknown Rx Ibuprofen [Motrin 600 MG tab] 600 mg PO Q8H PRN #10 tablet 03/09/19 Unknown Rx Phenytoin [Dilantin] 100 mg PO Q8HR #90 capsule 03/09/19 Unknown Rx ED Physical Exam - General Limitations: Physical Limitation General appearance: alert, in no apparent distress - Head Head exam: Present: atraumatic, normocephalic - Eye Eye exam: Present: normal appearance - ENT ENT exam: Present: mucous membranes moist - Neck Neck exam: Present: normal inspection - Respiratory Respiratory exam: Present: normal lung sounds bilaterally. Absent: respiratory distress, wheezes, rales, rhonchi - Cardiovascular Cardiovascular Exam: Present: regular rate, normal rhythm, normal heart sounds. Absent: systolic murmur, diastolic murmur, rubs, gallop - GI/Abdominal GI/Abdominal exam: Present: soft, normal bowel sounds. Absent: distended, tenderness, guarding, rebound - Rectal Rectal exam: Present: deferred - Extremities Exam Extremities exam: Present: normal inspection - Back Exam Back exam: Present: normal inspection - Neurological Exam Neurological exam: Present: alert, oriented X3 - Psychiatric Psychiatric exam: Present: normal affect, normal mood - Skin Skin exam: Present: warm, dry, intact, normal color. Absent: rash ED Course Vital Signs 03/09/19 02:31 Temperature 97.8 F Pulse Rate 72 Respiratory 18 Rate Blood Pressure 167/89 [Left] O2 Sat by Pulse 97 Oximetry ED Medical Decision Making - Lab Data Result diagrams: 03/09/19 03:21 03/09/19 03:21 Lab Results 03/09/19 03/09/19 03/09/19 Range/Units 03:21 03:21 03:21 WBC 5.7 (4.5-11.0) K/mm3 RBC 3.92 (3.65-5.03) M/mm3 Hgb 14.2 (11.8-15.2) gm/dl Hct 40.0 (35.5-45.6) % MCV 102 H (84-94) fl MCH 36 H (28-32) pg MCHC 35 H (32-34) % RDW 14.9 (13.2-15.2) % Plt Count 313 (140-440) K/mm3 Lymph % (Auto) 22.1 (13.4-35.0) % [place] % (Auto) 15.1 H (0.0-7.3) % Eos % (Auto) 1.5 (0.0-4.3) % Baso % (Auto) 1.5 (0.0-1.8) % Lymph # 1.3 (1.2-5.4) K/mm3 [place] # 0.9 H (0.0-0.8) K/mm3 Eos # 0.1 (0.0-0.4) K/mm3 Baso # 0.1 (0.0-0.1) K/mm3 Seg Neutrophils % 59.8 (40.0-70.0) % Seg Neutrophils # 3.4 (1.8-7.7) K/mm3 Sodium 137 (137-145) mmol/L Potassium 3.9 (3.6-5.0) mmol/L Chloride 99.6 (98-107) mmol/L Carbon Dioxide 22 (22-30) mmol/L Anion Gap 19 mmol/L BUN 9 (9-20) mg/dL Creatinine 0.6 L (0.8-1.5) mg/dL Estimated GFR > 60 ml/min BUN/Creatinine Ratio 15 % Glucose 83 (75-100) mg/dL Calcium 8.7 (8.4-10.2) mg/dL Phenytoin 0.9 L (10.0-20.0) ug/mL Plasma/Serum Alcohol (0-0.07) % 03/09/19 Range/Units 03:21 WBC (4.5-11.0) K/mm3 RBC (3.65-5.03) M/mm3 Hgb (11.8-15.2) gm/dl Hct (35.5-45.6) % MCV (84-94) fl MCH (28-32) pg MCHC (32-34) % RDW (13.2-15.2) % Plt Count (140-440) K/mm3 Lymph % (Auto) (13.4-35.0) % [place] % (Auto) (0.0-7.3) % Eos % (Auto) (0.0-4.3) % Baso % (Auto) (0.0-1.8) % Lymph # (1.2-5.4) K/mm3 [place] # (0.0-0.8) K/mm3 Eos # (0.0-0.4) K/mm3 Baso # (0.0-0.1) K/mm3 Seg Neutrophils % (40.0-70.0) % Seg Neutrophils # (1.8-7.7) K/mm3 Sodium (137-145) mmol/L Potassium (3.6-5.0) mmol/L Chloride (98-107) mmol/L Carbon Dioxide (22-30) mmol/L Anion Gap mmol/L BUN (9-20) mg/dL Creatinine (0.8-1.5) mg/dL Estimated GFR ml/min BUN/Creatinine Ratio % Glucose (75-100) mg/dL Calcium (8.4-10.2) mg/dL Phenytoin (10.0-20.0) ug/mL Plasma/Serum Alcohol 0.03 (0-0.07) % - Radiology Data LEFT HIP 2 VIEWS INDICATION / CLINICAL INFORMATION: pain after fall. COMPARISON: None available. FINDINGS: Left hip prosthesis. No fracture or other acute abnormality. Signer Name: Mayank Rogers MD Signed: 03/09/2019 3:31 AM Workstation Name: [email or web address] Transcribed By: TM Dictated By: Mayank Rogers MD Electronically Authenticated By: Mayank Rogers MD Signed Date/Time: 03/09/19 0331 - Medical Decision Making Patient's Dilantin level was low and he'll be loaded. Consult to our social insurance specialist has been placed to help the patient does receive his medications that he does not have to continue to come to the emergency department with subtherapeutic levels. His left hip showed no acute fracture the patient will be discharged Critical care attestation.: If time is entered above; I have spent that time in minutes in the direct care of this critically ill patient, excluding procedure time. ED Disposition Clinical Impression: Subtherapeutic serum dilantin level, Seizure, Alcohol abuse Contusion, hip Qualifiers: Encounter type: initial encounter Laterality: left Qualified Code(s): S70.02XA - Contusion of left hip, initial encounter Disposition: DC-01 TO HOME OR SELFCARE Is pt being admited?: No Does the pt Need Aspirin: No Condition: Stable [facility] - 3-5 Days Time of Disposition: 05:04
== END 2019-03-09 08:56 | disposition home or self-care (01) ==
LOC: ED 23:36
DX: S70.02XA Contusion of left hip, initial encounter (principal); F10.10 Alcohol abuse, uncomplicated; G40.909 Epilepsy, unspecified, not intractable, without status epilepticus; F20.9 Schizophrenia, unspecified; I10 Essential (primary) hypertension; J45.909 Unspecified asthma, uncomplicated; F17.200 Nicotine dependence, unspecified, uncomplicated; Z91.14 Patient's other noncompliance with medication regimen; Z79.899 Other long term (current) drug therapy; Z88.8 Allergy status to other drugs, medicaments and biological substances; X58.XXXA Exposure to other specified factors, initial encounter; Y93.89 Activity, other specified; Y92.89 Other specified places as the place of occurrence of the external cause; Y99.8 Other external cause status
CPT/HCPCS: 36415; 73502; 80048; 80185; 85025; 96365; 96372; 99284; J1165; J7050; 80320; G0480

== ENCOUNTER 2019-03-13 19:12 | Emergency (ER) | payer SELFPAY ==
[2019-03-13] MEDS ORDERED: ACETAMINOPHEN 325 MG TAB PO ONE (21:01)
[2019-03-13 21:23] LABS: Basophils # (Auto) 0.1 K/mm3 (0.0-0.1); Basophils % (Auto) 1.3 % (0.0-1.8); Eosinophils # (Auto) 0.1 K/mm3 (0.0-0.4); Eosinophils % (Auto) 1.5 % (0.0-4.3); Lymphocytes # (Auto) 1.2 K/mm3 (1.2-5.4); Lymphocytes % (Auto) 18.8 % (13.4-35.0); Mean Corpuscular HGB Conc 36 % (32-34); Mean Corpuscular Volume 101 fl (84-94); Monocytes # (Auto) 0.9 K/mm3 (0.0-0.8); Platelet Count 218 K/mm3 (140-440); Red Blood Count 3.75 M/mm3 (3.65-5.03); Red Cell Distribution Width 15.1 % (13.2-15.2)
[2019-03-13 21:25] LABS: Hematocrit 37.9 % (35.5-45.6); Hemoglobin 13.8 gm/dl (11.8-15.2)
[2019-03-13 21:49] LABS: Alanine Aminotransferase 18 units/L (7-56); Albumin 3.4 g/dL (3.9-5); BUN/Creatinine Ratio 13; Blood Urea Nitrogen 9 mg/dL (9-20); Calcium 8.4 mg/dL (8.4-10.2); Hemolysis Index 57
--- NOTE | 2019-03-13 21:51 | Emergency Department Report ---
HPI - General Chief Complaint: Seizure Time Seen by Provider: 03/13/19 20:43 - HPI HPI: 63-year-old male presents to the emergency department with a complaint of having a few seizures earlier today. The patient is on Dilantin but has not been able to fill the medication. He says he fell and hit his head earlier today but there was no loss of consciousness. The patient was here 4 days ago, 03/09/19, with the same complaint of seizures at that time. He was found to be subtherapeutic on his Dilantin and given a prescription. The patient says he is unable to fill as he is homeless. Patient also has a psychiatric history of anxiety, depression and schizophrenia. Patient denies any suicidal or homicidal ideations or any current hallucinations. Patient does have a history of alcohol abuse and dependence but denies drinking today. ED Past Medical Hx - Past Medical History Hx Hypertension: Yes Hx Congestive Heart Failure: No Hx Diabetes: No Hx Seizures: Yes Hx Psychiatric Treatment: Yes (anxiety psychosis) Hx Asthma: Yes Hx COPD: No Additional medical history: Other Hx is unclear - Surgical History Additional Surgical History: R knee surgery, left lung injury HIP SURGERY - Social History Smoking Status: Current Every Day Smoker Substance Use Type: Alcohol - Medications Home Medications: Home Medications Medication Instructions Recorded Confirmed Last Taken Type Folic Acid [Folvite] 1 mg PO DAILY #30 tablet 02/21/19 Unknown Rx Lactulose [Cephulac] 20 gm PO Q6HR #30 oral.liqd 02/21/19 Unknown Rx Multivitamin Tab [Multiple Vitamin 1 each PO DAILY #30 tablet 02/21/19 Unknown Rx TAB (Theragran)] Thiamine [Vitamin B-1] 100 mg PO QDAY #30 tablet 02/21/19 Unknown Rx amLODIPine 5 mg PO QDAY #30 tablet 02/21/19 Unknown Rx atenoloL [Tenormin] 50 mg PO QDAY #30 tablet 02/21/19 Unknown Rx chlordiazePOXIDE [Librium] 25 mg PO Q8H #20 capsule 02/21/19 Unknown Rx Ibuprofen [Motrin 600 MG tab] 600 mg PO Q8H PRN #10 tablet 03/09/19 Unknown Rx Phenytoin [Dilantin] 100 mg PO Q8HR #90 capsule 03/09/19 Unknown Rx Phenytoin [Dilantin] 100 mg PO Q8HR #90 capsule.er 03/14/19 Unknown Rx ED Review of Systems ROS: Stated complaint: SICK Other details as noted in HPI Comment: All other systems reviewed and negative Constitutional: denies: chills, fever Eyes: denies: eye pain, vision change Respiratory: denies: cough, shortness of breath Cardiovascular: denies: chest pain, palpitations Gastrointestinal: denies: abdominal pain, vomiting Genitourinary: denies: dysuria, discharge Musculoskeletal: denies: back pain, arthralgia Skin: denies: rash, lesions Neurological: headache, other (seizures). denies: weakness, numbness Psychiatric: anxiety, depression. denies: homicidal thoughts, suicidal thoughts Physical Exam - Physical Exam Vital Signs: Vital Signs 03/13/19 20:40 Temperature 98.4 F Pulse Rate 101 H Respiratory 20 Rate Blood Pressure 125/81 O2 Sat by Pulse 97 Oximetry Physical Exam: GENERAL: The patient is well-developed well-nourished. HEENT: Normocephalic. Atraumatic. Patient has moist mucous membranes. EYES: Extraocular motions are intact. Pupils equal and reactive to light bilaterally. NECK: Supple. Trachea is midline. CHEST/LUNGS: Clear to auscultation. There is no respiratory distress noted. HEART/CARDIOVASCULAR: Regular. There is no tachycardia. ABDOMEN: Abdomen is soft, nontender. Patient has normal bowel sounds. There is no abdominal distention. SKIN:Skin is warm and dry. . NEURO: The patient is awake, alert, and oriented. The patient is cooperative. The patient has no focal neurologic deficits. Normal speech. Cranial nerves II through XII grossly intact. MUSCULOSKELETAL: There is no tenderness or deformity. There is no limitation range of motion. There is no evidence of acute injury. ED Course Vital Signs 03/13/19 20:40 Temperature 98.4 F Pulse Rate 101 H Respiratory 20 Rate Blood Pressure 125/81 O2 Sat by Pulse 97 Oximetry ED Medical Decision Making - Lab Data Result diagrams: 03/13/19 21:08 03/13/19 21:08 - Radiology Data Radiology results: report reviewed Examination: CT of the head without contrast Clinical information: Trauma. Fall. Comparison: CT of the head without contrast, 02/22/2019 Technical: Multiple axial CT images of the head were obtained without intravenous contrast. Sagittal and coronal reformats were obtained. All CTs at this facility utilize dose reduction techniques including automated exposure control, iterative reconstruction and weight based dosing when appropriate to reduce patient radiation dose to as low as reasonable achievable. Findings: There is no CT evidence of acute intracranial hemorrhage or large territorial infarct. The ventricular system remains normal in size. Subtle hypodensities are noted within the bilateral periventricular white matter, similar to the previous study. Evaluation of the calvarium demonstrates no evidence of acute bony fracture. The visualized paranasal sinuses and mastoid air cells are clear. Bilateral orbits and globes a ppear grossly normal. Impression: 1. No CT evidence of acute intracranial process. Examination: CT of the cervical spine without contrast Clinical information: Trauma. Fall. Comparison: CT of the cervical spine, 02/22/2019 Technical: Multiple axial CT images of the cervical spine were obtained without intravenous contrast. Sagittal and coronal reformats were obtained. All CTs at this facility utilize dose reduction techniques including automated exposure control, iterative reconstruction and weight based dosing when appropriate to reduce patient radiation dose to as low as reasonable achievable. Findings: Moderate multilevel bony degenerative change is again noted throughout the cervi jennifer spine, as evidenced by multilevel disc space narrowing, bridging osteophyte formation and facet arthropathy. No subluxation is identified. Vertebral body height appears normal. Limited visualization of soft tissue structures shows no focal abnormality. The bilateral lung apices are clear. Impression: 1. Moderate bony degenerative change throughout the cervical spine. - Medical Decision Making This patient presents to the emergency department with the complaint that he has had one or 2 seizures prior to arrival today. He does have a seizure history but he also has a history of medication noncompliance as he is homeless. This patient was last here 4 days ago for the same issue. Since the patient has been in the emergency department he has been awake, alert, oriented and there has been no further seizure-like activity. He does not have any focal, motor or sensory deficits and his cranial nerves are intact. Given his complaint of having a fall and hitting his head, and knowing the patient has consumed alcohol, I ordered a CT scan of the head and cervical spine. These imaging studies resulted as negative for any fracture, subluxation, bleed, shift, mass or any other acute process. Patient's labs were mostly unremarkable except for subtherapeutic Dilantin level. He was given a loading dose of the Dilantin. His vital signs are stable throughout his ED course. A case management consult has been placed to assist with placement and to see if there is anything that they can do regarding getting him his medications. The patient also requested a refill of his anxiety medication, Ativan. However, given the patient's proclivity for alcohol consumption I do not fill comfortable prescribing him this medication. He will be given a referral for the [facility] which does take walk-in appointments. Despite his psychiatric history, the patient denies any suicidal or homicidal ideations or any hallucinations. - Differential Diagnosis hyperglycemia, medication noncompliance, electrolyte abnormalities Critical Care Time: No Critical care attestation.: If time is entered above; I have spent that time in minutes in the direct care of this critically ill patient, excluding procedure time. ED Disposition Clinical Impression: Seizures, Subtherapeutic serum dilantin level, Noncompliance with medication regimen Disposition: TO HOME OR SELFCARE Is pt being admited?: No Condition: Stable Instructions: Recurrent Seizures Adult (ED) Additional Instructions: Please follow up with a primary care physician in the next few days. Please take your seizure medication. Return to the emergency Department with any worsening of your symptoms or any acute distress. Given your seizure history, you are not allowed to drive a car or operate any heavy machinery until you are cleared by a neurologist for your primary care physician. Given your request for a refill of your anxiety medication, I have given you a referral for the [facility] facility. They take walk-in appointments Tuesday through Tuesday. Prescriptions: Phenytoin [Dilantin] 100 mg PO Q8HR #90 capsule.er Referrals: SHIRA CHRISTIAN MD [Primary Care Provider] - 3-5 Days TANA DEL VALLE MD [Staff Physician] - 3-5 Days [facility] [Outside] - 3-5 Days [facility] [Outside] - 3-5 Days Time of Disposition: 02:36
[2019-03-13] MEDS ORDERED: PHENYTOIN 1,000 MG in SODIUM CHLORIDE 0.9% 250ML 250 ML IV ONE (22:28)
[2019-03-13 22:57] LABS: Bilirubin,Urine NEG (Negative); Blood,Urine NEG (Negative); Color,Urine Yellow (Yellow); Mucus,Urine FEW /HPF; Protein,Urine <15 mg/dL mg/dL (Negative); Urobilinogen,Urine < 2.0 mg/dL (<2.0)
--- NOTE | 2019-03-13 22:59 | Cat Scan Report ---
Examination: CT of the cervical spine without contrast Clinical information: Trauma. Fall. Comparison: CT of the cervical spine, 02/22/2019 Technical: Multiple axial CT images of the cervical spine were obtained without intravenous contrast. Sagittal and coronal reformats were obtained. All CTs at this facility utilize dose reduction techn iques including automated exposure control, iterative reconstruction and weight based dosing when mary ropriate to reduce patient radiation dose to as low as reasonable achievable. Findings: Moderate multilevel bony degenerative change is again noted throughout the cervical spine, as evidenc ed by multilevel disc space narrowing, bridging osteophyte formation and facet arthropathy. No sublux ation is identified. Vertebral body height appears normal. Limited visualization of soft tissue structures shows no focal abnormality. The bilateral lung apices are clear. Impression: 1. Moderate bony degenerative change throughout the cervical spine. Signer Name: Shawna Combs MD Signed: 03/13/2019 10:54 PM Workstation Name: [id number]
[2019-03-13 23:02] LABS: Amphetamine Screen,Urine PRESUMPTIVE NEGATIVE; Cannabinoid Screen,Urine PRESUMPTIVE NEGATIVE; Cocaine Screen,Urine PRESUMPTIVE NEGATIVE; Methadone Screen,Urine PRESUMPTIVE NEGATIVE; Opiate Screen,Urine PRESUMPTIVE NEGATIVE
--- NOTE | 2019-03-13 23:05 | Cat Scan Report ---
Examination: CT of the head without contrast Clinical information: Trauma. Fall. Comparison: CT of the head without contrast, 02/22/2019 Technical: Multiple axial CT images of the head were obtained without intravenous contrast. Sagittal and coronal reformats were obtained. All CTs at this facility utilize dose reduction techniques inc luding automated exposure control, iterative reconstruction and weight based dosing when appropriate to reduce patient radiation dose to as low as reasonable achievable. Findings: There is no CT evidence of acute intracranial hemorrhage or large territorial infarct. The ventricular system remains normal in size. Subtle hypodensities are noted within the bilateral perive ntricular white matter, similar to the previous study. Evaluation of the calvarium demonstrates no evidence of acute bony fracture. The visualized paranasal sinuses and mastoid air cells are clear. Bilateral orbits and globes appear grossly normal. Impression: 1. No CT evidence of acute intracranial process. Signer Name: Shawna Combs MD Signed: 03/13/2019 11:00 PM Workstation Name: [id number]
[2019-03-13 23:17] LABS: Benzodiazepines Screen,Urine PRESUMPTIVE POSITIVE
[2019-03-14 03:09] VITALS: BP 124/72
[2019-03-14] MEDS ORDERED: ACETAMINOPHEN 325 MG TAB ONE (06:34)
[2019-03-14] MEDS ORDERED: ACETAMINOPHEN 325 MG TAB PO ONE (06:42)
--- NOTE | 2019-03-14 14:24 | Consultation ---
History of Present Illness - Reason for Consult Consult date: 03/14/19 Reason for consult: psychiatric assessment - History of Present Psychiatric Illness mr garcia is a 63 year old male, he is aaox3. he appears older than his age, he is dishevel. he reported that he was brought to the ER because he had a seizure. He reports that he eats when he has money and he sleeps Well. He denies SI, stating , "I am episcopalian I would hurt myself . He reports that he has always s ees shallows and hear voices talking but, he doesn't listen, when asked what the voices are saying he states, nothing really, they are there for years. he reports that he hasn't taken medication in about one year. he constantly ask for ativan, Stated, "all I need is some ativan". PAST PSYCHIATRIC HISTORY: Diagnoses: Suicide attempts or Self-harm behavior: NO Prior psychiatric hospitalizations: [facility] 1 year ago Substance Abuse history:yes Previous psychiatric medications tried:can't remember Outpatient treatment: no PAST MEDICAL HISTORY: seizure Family Psychiatric History None reported or documented SOCIAL HISTORY Marital Status: single Living Arrangements:homeless Employment Status: unemployed Access to guns/weapons:no Education: [employer] History of Abuse: no Legal History: yes REVIEW OF SYSTEMS Constitutional: Negative for weight loss ENT: Negative for stridor Respiratory: Negative for cough or hemoptysis All other systems reviewed and are negative MENTAL STATUS General Appearance and Behavior: appear older, good eye contact, cooperative with questioning and polite Cooperation: Cooperative Psychomotor Behavior: within normal limits Mood: OK Affect and affective range: Congruent with stated mood Thought Process: Fluent/Logical and Goal-directed Thought Content: Within reality Speech: Normal volume and Regular rate and rhythm Intellectual Functioning Average Suicidal Ideation: Denies SI Homicidal Ideation: Denies HI Impulse Control: intact Insight and Judgment: normal insight and judgment Memory: Normal Attention: Normal Orientation: alert and oriented RECOMMENDATIONS MEDICATIONS: Risks, benefits and alternatives of medications discussed with the patient, questions answered and consent obtained from patient. PSYCHOTHERAPY: Supportive psychotherapy provided MEDICAL: Per primary team DELIRIUM PRECAUTIONS: Please re-orient patient frequently, keep lights on during the day, and minimize benzodiazepines and opiates as these medications could worsen patient's confusion. PRINCIPAL IOS DEVELOPER: DISPOSITION: Per primary team; no indication for acute inpatient psychiatric hospitalization at this time LEGAL STATUS:voluntary FOLLOW-UP: aaox3, denies SI/HI , contract for safety, sign off Medications and Allergies Allergies Allergy/AdvReac Type Severity Reaction Status Date / Time olanzapine [From Zyprexa] Allergy Nausea Verified 02/15/19 18:02 Home Medications Medication Instructions Recorded Confirmed Last Taken Type Folic Acid [Folvite] 1 mg PO DAILY #30 tablet 02/21/19 Unknown Rx Lactulose [Cephulac] 20 gm PO Q6HR #30 oral.liqd 02/21/19 Unknown Rx Multivitamin Tab [Multiple Vitamin 1 each PO DAILY #30 tablet 02/21/19 Unknown Rx TAB (Theragran)] Thiamine [Vitamin B-1] 100 mg PO QDAY #30 tablet 02/21/19 Unknown Rx amLODIPine 5 mg PO QDAY #30 tablet 02/21/19 Unknown Rx atenoloL [Tenormin] 50 mg PO QDAY #30 tablet 02/21/19 Unknown Rx chlordiazePOXIDE [Librium] 25 mg PO Q8H #20 capsule 02/21/19 Unknown Rx Ibuprofen [Motrin 600 MG tab] 600 mg PO Q8H PRN #10 tablet 03/09/19 Unknown Rx Phenytoin [Dilantin] 100 mg PO Q8HR #90 capsule 03/09/19 Unknown Rx Phenytoin [Dilantin] 100 mg PO Q8HR #90 capsule.er 03/14/19 Unknown Rx Mental Status Exam - Vital signs Last Vital Signs Temp 98.4 F 03/13/19 20:40 Pulse 108 H 03/14/19 02:45 Resp 14 03/14/19 02:45 BP 124/72 03/14/19 06:31 Pulse Ox 95 03/14/19 06:31 Results Result Diagrams: 03/13/19 21:08 03/13/19 21:08 Abnormal lab results 03/13/19 03/13/19 03/13/19 Range/Units 21:08 21:08 21:08 MCV 101 H (84-94) fl MCH 37 H (28-32) pg MCHC 36 H (32-34) % Nicholas % (Auto) 15.0 H (0.0-7.3) % Nicholas # 0.9 H (0.0-0.8) K/mm3 Sodium 131 L (137-145) mmol/L Chloride 96.6 L (98-107) mmol/L Carbon Dioxide 19 L (22-30) mmol/L Creatinine 0.7 L (0.8-1.5) mg/dL AST 41 H (5-40) units/L Albumin 3.4 L (3.9-5) g/dL Phenytoin 0.8 L (10.0-20.0) ug/mL All other labs normal.
== END 2019-03-14 15:30 | disposition home or self-care (01) ==
LOC: ED 19:12
DX: R56.9 Unspecified convulsions (principal); I10 Essential (primary) hypertension; F23 Brief psychotic disorder; J45.909 Unspecified asthma, uncomplicated; F17.200 Nicotine dependence, unspecified, uncomplicated; Z98.890 Other specified postprocedural states; Z79.899 Other long term (current) drug therapy; Z88.8 Allergy status to other drugs, medicaments and biological substances; Z59.0 Homelessness
CPT/HCPCS: 36415; 70450; 72125; 80053; 80185; 80307; 81001; 85025; 96365; 99285; J1165; J7050; 80320; G0480

== ENCOUNTER 2019-04-02 09:38 | Inpatient (IN) | payer OTHER ==
--- NOTE | 2019-04-02 10:54 | XRay Report ---
LEFT WRIST 3 VIEWS INDICATION / CLINICAL INFORMATION: injury. COMPARISON: 12/28/2017 FINDINGS: Diffuse marked degenerative change in the wrist joint and in the thumb carpometacarpal joint. No defi nite acute findings or interval change from prior examination dated 12/28/2017 Signer Name: Ken Dye MD FACR Signed: 04/02/2019 10:49 AM Workstation Name: [id number] [facility]
--- NOTE | 2019-04-02 10:57 | Emergency Department Report ---
ED General Adult HPI - General Chief complaint: Seizure Stated complaint: FALL/ LT WRIST PAIN Time Seen by Provider: 04/02/19 10:02 Source: EMS Mode of arrival: Ambulatory Limitations: No Limitations - History of Present Illness Initial comments: 63 yo M, hx of seizures, presents to ED with left wrist pain. Pt states he had a seizure this morning and sustained an injury to the left wrist. Reports pain and swelling. Patient reports he has injured the same wrist multiple times in the past. -: This morning Location: left, upper extremity Severity scale (0 -10): 8 Quality: aching Consistency: constant Improves with: immobilization Worsens with: movement Associated Symptoms: seizure Treatments Prior to Arrival: none - Related Data Previous Rx's Medication Instructions Recorded Last Taken Type Clindamycin [Clindamycin CAP] 600 mg PO BID #14 capsule 04/04/19 Unknown Rx Folic Acid [Folvite] 1 mg PO DAILY #30 tablet 04/04/19 Unknown Rx Ibuprofen [Motrin 600 MG tab] 600 mg PO Q8H PRN #10 tablet 04/04/19 Unknown Rx Lactulose [Cephulac] 20 gm PO QDAY 30 Days 04/04/19 Unknown Rx Multivitamin Tab [Multiple Vitamin 1 each PO DAILY #30 tablet 04/04/19 Unknown Rx TAB (Theragran)] Phenytoin [Dilantin] 100 mg PO Q8HR #90 capsule 04/04/19 Unknown Rx Thiamine [Vitamin B-1] 100 mg PO QDAY #30 tablet 04/04/19 Unknown Rx amLODIPine 5 mg PO QDAY #30 tablet 04/04/19 Unknown Rx atenoloL [Tenormin] 50 mg PO QDAY #30 tablet 04/04/19 Unknown Rx chlordiazePOXIDE [Librium] 25 mg PO Q8H #7 capsule 04/04/19 Unknown Rx Allergies Allergy/AdvReac Type Severity Reaction Status Date / Time olanzapine [From Zyprexa] Allergy Nausea Verified 02/15/19 18:02 ED Review of Systems ROS: Stated complaint: FALL/ LT WRIST PAIN Other details as noted in HPI Comment: All other systems reviewed and negative Constitutional: denies: fever Musculoskeletal: as per HPI Neurological: denies: headache ED Past Medical Hx - Past Medical History Previous Medical History?: Yes Hx Hypertension: Yes Hx Congestive Heart Failure: No Hx Diabetes: No Hx Seizures: Yes Hx Psychiatric Treatment: Yes (anxiety psychosis) Hx Asthma: Yes Hx COPD: No Additional medical history: Other Hx is unclear - Surgical History Past Surgical History?: Yes Additional Surgical History: R knee surgery, left lung injury HIP SURGERY - Social History Smoking Status: Current Every Day Smoker Substance Use Type: Alcohol - Medications Home Medications: Home Medications Medication Instructions Recorded Confirmed Last Taken Type Clindamycin [Clindamycin CAP] 600 mg PO BID #14 capsule 04/04/19 Unknown Rx Folic Acid [Folvite] 1 mg PO DAILY #30 tablet 04/04/19 Unknown Rx Ibuprofen [Motrin 600 MG tab] 600 mg PO Q8H PRN #10 tablet 04/04/19 Unknown Rx Lactulose [Cephulac] 20 gm PO QDAY 30 Days 04/04/19 Unknown Rx Multivitamin Tab [Multiple Vitamin 1 each PO DAILY #30 tablet 04/04/19 Unknown Rx TAB (Theragran)] Phenytoin [Dilantin] 100 mg PO Q8HR #90 capsule 04/04/19 Unknown Rx Thiamine [Vitamin B-1] 100 mg PO QDAY #30 tablet 04/04/19 Unknown Rx amLODIPine 5 mg PO QDAY #30 tablet 04/04/19 Unknown Rx atenoloL [Tenormin] 50 mg PO QDAY #30 tablet 04/04/19 Unknown Rx chlordiazePOXIDE [Librium] 25 mg PO Q8H #7 capsule 04/04/19 Unknown Rx ED Physical Exam - General Limitations: No Limitations General appearance: alert, in no apparent distress, other (appears unkempt) - Head Head exam: Present: atraumatic, normocephalic - Eye Eye exam: Present: normal appearance - ENT ENT exam: Present: mucous membranes moist - Neck Neck exam: Present: normal inspection, full ROM - Respiratory Respiratory exam: Present: normal lung sounds bilaterally. Absent: respiratory distress - Cardiovascular Cardiovascular Exam: Present: regular rate, normal rhythm - GI/Abdominal GI/Abdominal exam: Absent: distended - Extremities Exam Extremities exam: Present: other (mild swelling to left wrist w/ painful ROM) - Neurological Exam Neurological exam: Present: alert, oriented X3, other (no tremor present). Absent: motor sensory deficit - Psychiatric Psychiatric exam: Present: normal affect, normal mood - Skin Skin exam: Present: warm, dry, intact ED Course Vital Signs 04/02/19 04/02/19 10:00 10:06 Temperature 98.0 F 98.0 F Pulse Rate 92 H 92 H Respiratory 17 17 Rate Blood Pressure 162/90 Blood Pressure 162/90 [Left] O2 Sat by Pulse 99 99 Oximetry ED Medical Decision Making - Lab Data Result diagrams: 04/02/19 11:16 04/03/19 14:43 - Radiology Data Radiology results: report reviewed, image reviewed - Medical Decision Making 63 yo M reports seizure earlier this morning, presents to ED complaining of left wrist pain. Xrays show no acute findings. Dialntin level is low, so pt loaded w/ dilantin. Pt is also hyponatremic, much lower sodium level compared to previous visits. IV fluids initiated. Will admit to hospitalist, Dr Espinosa, for further management. - Differential Diagnosis subtherapeutic dilantin level, fracture, sprain, electrolyte abnormality Critical care attestation.: If time is entered above; I have spent that time in minutes in the direct care of this critically ill patient, excluding procedure time. ED Disposition Clinical Impression: Seizures, Hyponatremia, Contusion of left wrist Disposition: - OP ADMIT IP TO THIS HOSP Is pt being admited?: Yes Condition: Stable Time of Disposition: 12:26
[2019-04-02 11:41] LABS: Basophils # (Auto) 0.1 K/mm3 (0.0-0.1); Basophils % (Auto) 0.6 % (0.0-1.8); Eosinophils % (Auto) 0.1 % (0.0-4.3); Lymphocytes # (Auto) 0.5 K/mm3 (1.2-5.4); Lymphocytes % (Auto) 4.5 % (13.4-35.0); Mean Corpuscular HGB Conc 36 % (32-34); Mean Corpuscular Volume 102 fl (84-94); Monocytes # (Auto) 1.3 K/mm3 (0.0-0.8); Monocytes % (Auto) 11.2 % (0.0-7.3); Platelet Count 236 K/mm3 (140-440); Red Blood Count 4.34 M/mm3 (3.65-5.03); Red Cell Distribution Width 14.8 % (13.2-15.2)
[2019-04-02 11:43] LABS: Hematocrit 44.1 % (35.5-45.6); Hemoglobin 15.8 gm/dl (11.8-15.2)
[2019-04-02 12:01] LABS: BUN/Creatinine Ratio 18; Blood Urea Nitrogen 7 mg/dL (9-20); Calcium 8.7 mg/dL (8.4-10.2); Hemolysis Index 68
[2019-04-02] MEDS ORDERED: SODIUM CHLORIDE 0.9% 1000 ML 1,000 ML IV ONE (12:05)
[2019-04-02] MEDS ORDERED: ONDANSETRON 4 MG/2 ML INJ IV PRN (13:02)
[2019-04-02] MEDS ORDERED: ALBUTEROL 2.5 MG/3 ML NEBU IH PRN (13:02)
--- NOTE | 2019-04-02 13:05 | History and Physical Report ---
History of Present Illness Chief complaint: I had a seizure and fell and hurt my hand History of present illness: 63-year-old male who is homeless with alcohol dependence, seizure disorder, bipolar disorder presents to ED for evaluation. Patient states that he had a seizure this morning and subsequently fell and injured she injured his left wrist. EMS notified and upon arrival the patient was found to be in distress and subsequently transported to [facility] for further care and evaluation. Patient seen and evaluated in the emergency department. Lab and imaging studies reviewed. Patient found to have hyponatremia. X-ray of the left wrist did not reveal an acute fracture. Patient placed in observation status and treated with supportive care, IV fluid resuscitation therapy and repeat BMP to evaluate for serum sodium level changes. Patient denies fever, chills, chest pain, palpitations, shortness of breath, bright red blood per rectum, productive cough, recent ill contacts. Patient is acknowledges noncompliance with medication. Patient denies suicidal/homicidal ideation or formulation of plan. Prior admission on 02/19/2019 reviewed. All medication listed at time of admission has been reconciled. Past History Past Medical History: seizures, other (See HPI) Past Surgical History: No surgical history, Other (Reviewed) Social history: single, alcohol abuse Family history: denies: hypertension Medications and Allergies Allergies Allergy/AdvReac Type Severity Reaction Status Date / Time olanzapine [From Zyprexa] Allergy Nausea Verified 02/15/19 18:02 Home Medications Medication Instructions Recorded Confirmed Last Taken Type Folic Acid [Folvite] 1 mg PO DAILY #30 tablet 02/21/19 Unknown Rx Lactulose [Cephulac] 20 gm PO Q6HR #30 oral.liqd 02/21/19 Unknown Rx Multivitamin Tab [Multiple Vitamin 1 each PO DAILY #30 tablet 02/21/19 Unknown Rx TAB (Theragran)] Thiamine [Vitamin B-1] 100 mg PO QDAY #30 tablet 02/21/19 Unknown Rx amLODIPine 5 mg PO QDAY #30 tablet 02/21/19 Unknown Rx atenoloL [Tenormin] 50 mg PO QDAY #30 tablet 02/21/19 Unknown Rx chlordiazePOXIDE [Librium] 25 mg PO Q8H #20 capsule 02/21/19 Unknown Rx Ibuprofen [Motrin 600 MG tab] 600 mg PO Q8H PRN #10 tablet 01/03/20 Unknown Rx Phenytoin [Dilantin] 100 mg PO Q8HR #90 capsule 03/09/19 Unknown Rx Phenytoin [Dilantin] 100 mg PO Q8HR #90 capsule.er 03/14/19 Unknown Rx Active Meds: Active Medications Acetaminophen (Tylenol) 650 mg PO Q4H PRN PRN Reason: Pain MILD(1-3)/Fever >100.5/CAAL Albuterol (Proventil) 2.5 mg IH Q3HRT PRN PRN Reason: Shortness Of Breath Ondansetron HCl (Zofran) 4 mg IV Q8H PRN PRN Reason: Nausea And Vomiting Sodium Chloride (Sodium Chloride) 1 gm PO BID DG Sodium Chloride (Sodium Chloride Flush Syringe 10 Ml) 10 ml IV BID DG Sodium Chloride (Sodium Chloride Flush Syringe 10 Ml) 10 ml IV PRN PRN PRN Reason: LINE FLUSH Review of Systems Constitutional: weakness, no weight loss, no weight gain, no fever, no chills Ears, nose, mouth and throat: no ear pain, no ear discharge, no nose pain, no nasal congestion Cardiovascular: no chest pain, no palpitations, no edema, no syncope, no lightheadedness, no shortness of breath Respiratory: no cough, no cough with sputum, no hemoptysis, no shortness of doug ath, no dyspnea on exertion Gastrointestinal: no nausea, no vomiting, no diarrhea, no constipation Genitourinary Male: no hematuria, no flank pain, no discharge, no urinary frequency, no urinary hesitancy Rectal: no pain, no incontinence, no bleeding Musculoskeletal: no neck stiffness, no neck pain, no shooting arm pain, no arm numbness/tingling, no low back pain, no shooting leg pain Integumentary: no rash, no pruritis, no redness, no sores, no wounds, no jaundice Neurological: no head injury, no transient paralysis, no weakness, no parathesia s, no tingling, no ataxia Psychiatric: no anxiety, no memory loss, no sleep disturbances, no insomnia, no change in libido, no disorientation, no hallucinations Endocrine: no cold intolerance, no heat intolerance, no excessive thirst, no polydipsia, no polyuria, no nocturia Hematologic/Lymphatic: no easy bruising, no easy bleeding, no lymphedema Allergic/Immunologic: no urticaria, no allergic rhinitis, no persistent infections, no anaphylaxis, no angioedema Exam - Constitutional Vitals: Temp Pulse Resp BP Pulse Ox 98.0 F 92 H 17 162/90 99 04/02/19 10:06 04/02/19 10:06 04/02/19 10:06 04/02/19 10:06 04/02/19 10:06 General appearance: Present: no acute distress, malodorous - EENT Eyes: Present: PERRL ENT: hearing intact, clear oral mucosa - Neck Neck: Present: supple, normal ROM - Respiratory Respiratory effort: normal Respiratory: bilateral: CTA - Cardiovascular Heart Sounds: Present: S1 & S2. Absent: rub, click - Extremities Extremities: pulses symmetrical, No edema Peripheral Pulses: within normal limits - Abdominal General gastrointestinal: Present: soft, non-tender, non-distended, normal bowel sounds Male genitourinary: Present: normal - Integumentary Integumentary: Present: clear, warm, dry - Musculoskeletal Musculoskeletal: gait normal, strength equal bilaterally - Psychiatric Psychiatric: appropriate mood/affect, intact judgment & insight - Neurologic Neurologic: CNII-XII intact, moves all extremities Results - Labs CBC & Chem 7: 04/02/19 11:16 04/02/19 11:16 Labs: Abnormal lab results 04/02/19 04/02/19 04/02/19 Range/Units 11:16 11:16 11:16 WBC 12.0 H (4.5-11.0) K/mm3 Hgb 15.8 H (11.8-15.2) gm/dl MCV 102 H (84-94) fl MCH 36 H (28-32) pg MCHC 36 H (32-34) % Lymph % (Auto) 4.5 L (13.4-35.0) % Baker % (Auto) 11.2 H (0.0-7.3) % Lymph # 0.5 L (1.2-5.4) K/mm3 Baker # 1.3 H (0.0-0.8) K/mm3 Seg Neutrophils % 83.6 H (40.0-70.0) % Seg Neutrophils # 10.0 H (1.8-7.7) K/mm3 Sodium 123 L (137-145) mmol/L Chloride 86.1 L (98-107) mmol/L Carbon Dioxide 18 L (22-30) mmol/L BUN 7 L (9-20) mg/dL Creatinine 0.4 L (0.8-1.5) mg/dL Phenytoin 1.2 L (10.0-20.0) ug/mL Assessment and Plan - Patient Problems (1) Hyponatremia Current Visit: Yes Status: Acute Plan to address problem: IV fluid resuscitation therapy, supportive care, sodium repletion, (2) Alcohol dependence Current Visit: Yes Status: Acute Qualifiers: Complication of substance-induced condition: uncomplicated Plan to address problem: Supportive care, Alcoholics Anonymous follow-up at discharge. Thiamine, folic acid, multivitamin daily. (3) Alcohol withdrawal seizure Current Visit: Yes Status: Acute Qualifiers: Complication of substance-induced condition: uncomplicated Qualified Code(s): F10.230 - Alcohol dependence with withdrawal, uncomplicated Plan to address problem: Banana bag, blood alcohol level, supportive care. (4) DVT prophylaxis Current Visit: Yes Status: Acute Plan to address problem: SCD to bilateral lower extremities, patient is ambulatory
[2019-04-02] MEDS: ACETAMINOPHEN 325 MG TAB PO PRN ×3 (13:23→21:57)
[2019-04-02] MEDS ORDERED: PHENYTOIN 1,000 MG in SODIUM CHLORIDE 0.9% 250ML 250 ML IV ONE (13:30)
[2019-04-02] MEDS ORDERED: THIAMINE 100 MG, FOLIC ACID 1 MG, MULTIPLE VITAMIN INJ, ADULT 10 ML in SODIUM CHLORIDE ... IV ONE (14:00)
[2019-04-02] MEDS: SODIUM CHLORIDE 1 GM TAB PO SCH ×2 (15:12→23:49)
[2019-04-03] MEDS: ACETAMINOPHEN 325 MG TAB PO PRN ×4 (04:10→21:07)
[2019-04-03] MEDS: FOLIC ACID 1 MG TAB PO SCH (09:35)
[2019-04-03] MEDS: THIAMINE 100 MG TAB PO SCH (09:35)
[2019-04-03] MEDS: amLODIPine 5 MG TAB PO SCH (09:35)
[2019-04-03] MEDS: MULTIVITAMINS ,THERAPEUTIC TAB PO SCH (09:35)
[2019-04-03] MEDS: SODIUM CHLORIDE 1 GM TAB PO SCH ×2 (10:00→22:01)
[2019-04-03] MEDS ORDERED: LACTULOSE 20 GM/30 ML ORAL LIQD PO SCH (12:00)
[2019-04-03] MEDS: CLINDAMYCIN 600 MG/50 mL 600 MG/50 ML BAG IV SCH ×2 (14:00→21:56)
--- NOTE | 2019-04-03 14:12 | Progress Note ---
Assessment and Plan / Hyponatremia IV fluid resuscitation therapy, Na level improving / Alcohol dependence with withdrawal Supportive care, Alcoholics Anonymous follow-up at discharge. cont Thiamine, folic acid, multivitamin daily. place iv fluid / Breakthrough seizure, likely from noncompliance and alcohol withdrawal cont phenytoin / Left hand cellulites - start on abx, get blood cx /DVT prophylaxis SCD to bilateral lower extremities, patient is ambulatory Disposition: Need inpt care for alcohol withdrawal, left hand cellulites. if stable then plan to d/c to skilled nursing Subjective Date of service: 04/03/19 Interval history: Patient seen and examined c/o left hand pain and swelling unable to get up from bed patient is homeless Objective - Constitutional Vitals: Vital Signs - 12hr 04/03/19 04/03/19 04/03/19 04:10 04:36 07:55 Temperature 98.0 F Pulse Rate 102 H Respiratory 18 20 Rate Blood Pressure 126/77 O2 Sat by Pulse 97 96 Oximetry General appearance: Present: no acute distress, disheveled, malodorous - EENT Eyes: PERRL, EOM intact ENT: hearing intact, clear oral mucosa Ears: bilateral: normal - Neck Neck: supple, normal ROM - Respiratory Respiratory effort: normal Respiratory: bilateral: CTA - Cardiovascular Rhythm: regular Heart Sounds: Present: S1 & S2. Absent: gallop, rub Extremities: pulses intact, normal color, abnormal (left hand swelling and tenderness) - Gastrointestinal General gastrointestinal: Present: soft, non-tender, non-distended, normal bowel sounds - Integumentary Integumentary: dry, erythema (left arm) - Musculoskeletal Musculoskeletal: generalized weakness - Neurologic Neurologic: moves all extremities - Psychiatric Psychiatric: memory intact, other (appears lathergic ) - Labs CBC & Chem 7: 04/02/19 11:16 04/03/19 14:43 Labs: Abnormal lab results 04/02/19 Range/Units 16:55 Sodium 123 L (137-145) mmol/L
[2019-04-03 15:28] LABS: BUN/Creatinine Ratio 15; Blood Urea Nitrogen 12 mg/dL (9-20); Calcium 8.5 mg/dL (8.4-10.2); Hemolysis Index 5
[2019-04-03] MEDS: SODIUM CHLORIDE 0.9% 1000 ML 1,000 ML IV SCH (16:44)
[2019-04-04] MEDS: ACETAMINOPHEN 325 MG TAB PO PRN ×2 (03:07→06:18)
[2019-04-04] MEDS: SODIUM CHLORIDE 0.9% 1000 ML 1,000 ML IV SCH (06:14)
[2019-04-04] MEDS: CLINDAMYCIN 600 MG/50 mL 600 MG/50 ML BAG IV SCH ×2 (06:15→13:34)
[2019-04-04] MEDS: amLODIPine 5 MG TAB PO SCH (09:11)
[2019-04-04] MEDS: MULTIVITAMINS ,THERAPEUTIC TAB PO SCH (09:12)
[2019-04-04] MEDS: THIAMINE 100 MG TAB PO SCH (09:12)
[2019-04-04] MEDS: FOLIC ACID 1 MG TAB PO SCH (09:12)
[2019-04-04] MEDS: SODIUM CHLORIDE 1 GM TAB PO SCH (09:15)
[2019-04-04] MEDS ORDERED: LACTULOSE 20 GM/30 ML ORAL LIQD PO SCH (10:00)
[2019-04-04] MEDS ORDERED: amLODIPine 5 MG TAB PO SCH (13:14)
--- NOTE | 2019-04-04 13:23 | Discharge Summary ---
Providers - Providers Date of Admission: 04/04/19 10:13 Date of discharge: 04/04/19 Attending physician: ROSE OROZCO 04/03/19 12:43 Physical Therapy Evaluation and Treat [CONS] Routine Comment: Reason For Exam: placement Primary care physician: BLOCK HACKER Hospitalization Condition: Stable Pertinent studies: Wrist XRY: Diffuse marked degenerative change in the wrist joint and in the thumb carpometacarpal joint. No definite acute findings or interval change from prior examination dated 12/28/2017 Hospital course: Discharge diagnosis; / Hyponatremia IV fluid resuscitation therapy, Na level improved / Alcohol dependence with withdrawal Provided supportive care, Alcoholics Anonymous follow-up at discharge. cont Thiamine, folic acid, multivitamin daily. / Breakthrough seizure, likely from noncompliance and alcohol withdrawal cont phenytoin / Left hand cellulites - started on abx, negative blood cx /DVT prophylaxis SCD to bilateral lower extremities, patient is ambulatory Time spent for discharge: 34 minutes Core Measure Documentation - Palliative Care Palliative Care/ Comfort Measures: Not Applicable - Core Measures Any of the following diagnoses?: none Exam - Physical Exam Narrative exam: General appearance: Present: no acute distress, disheveled, malodorous - EENT Eyes: PERRL, EOM intact ENT: hearing intact, clear oral mucosa Ears: bilateral: normal - Neck Neck: supple, normal ROM - Respiratory Respiratory effort: normal Respiratory: bilateral: CTA - Cardiovascular Rhythm: regular Heart Sounds: Present: S1 & S2. Absent: gallop, rub Extremities: pulses intact, normal color, abnormal (mild left hand swelling and tenderness) - Gastrointestinal General gastrointestinal: Present: soft, non-tender, non-distended, normal bowel sounds - Integumentary Integumentary: dry, erythema (left arm) - Musculoskeletal Musculoskeletal: generalized weakness - Neurologic Neurologic: moves all extremities - Psychiatric Psychiatric: memory intact, AAOx3 - Constitutional Vitals: Temp Pulse Resp BP Pulse Ox 98.0 F 93 H 16 144/93 97 04/04/19 03:57 04/04/19 03:57 04/04/19 03:57 04/04/19 09:11 04/04/19 03:57 Plan Activity: advance as tolerated Weight Bearing Status: Weight Bear as Tolerated Diet: low fat, low salt Follow up with: SHIRA CHRISTIAN MD [Primary Care Provider] - 3-5 Days YULI SHOEMAKER MD [Staff Physician] - 7 Days Prescriptions: amLODIPine 5 mg PO QDAY #30 tablet Lactulose [Cephulac] 20 gm PO QDAY 30 Days Clindamycin [Clindamycin CAP] 600 mg PO BID #14 capsule Phenytoin [Dilantin] 100 mg PO Q8HR #90 capsule Folic Acid [Folvite] 1 mg PO DAILY #30 tablet chlordiazePOXIDE [Librium] 25 mg PO Q8H #7 capsule Ibuprofen [Motrin 600 MG tab] 600 mg PO Q8H PRN #10 tablet PRN Reason: Pain Multivitamin Tab [Multiple Vitamin TAB (Theragran)] 1 each PO DAILY #30 tablet atenoloL [Tenormin] 50 mg PO QDAY #30 tablet Thiamine [Vitamin B-1] 100 mg PO QDAY #30 tablet
[2019-04-04 13:36] VITALS: BP 136/83
== END 2019-04-04 15:10 | disposition home or self-care (01) | DRG 101 ==
LOC: ED 09:38 → 3A 13:02 → OBSVTOIN 04-04 10:13
PROVIDERS: ADMIT Internal Medicine; ATTEND Internal Medicine
DX: G40.89 Other seizures (principal); L03.114 Cellulitis of left upper limb; E87.1 Hypo-osmolality and hyponatremia; F10.230 Alcohol dependence with withdrawal, uncomplicated; S60.212A Contusion of left wrist, initial encounter; I10 Essential (primary) hypertension; F17.210 Nicotine dependence, cigarettes, uncomplicated; J45.909 Unspecified asthma, uncomplicated; F29 Unspecified psychosis not due to a substance or known physiological condition; W18.39XA Other fall on same level, initial encounter; F31.9 Bipolar disorder, unspecified; Z71.6 Tobacco abuse counseling; Z91.14 Patient's other noncompliance with medication regimen; Z79.899 Other long term (current) drug therapy; Z88.2 Allergy status to sulfonamides; Y93.89 Activity, other specified; Y92.89 Other specified places as the place of occurrence of the external cause; Y99.8 Other external cause status
CPT/HCPCS: 36415; 80048; 80185; 80320; 84295; 85025; 87040; G0378; G0480; J1165; J2405; J3411; J7030; J7050

== ENCOUNTER 2019-04-12 20:41 | Emergency (ER) | payer SELFPAY ==
--- NOTE | 2019-04-12 21:55 | Emergency Department Report ---
Blank Doc - Documentation Documentation: 63-year-old male that presents with SZ. Denies any other complaints. Had a n ormal CT of head 2 weeks ago. This initial assessment/diagnostic orders/clinical plan/treatment(s) is/are subject to change based on patient's health status, clinical progression and re- assessment by fellow clinical providers in the ED. Further treatment and workup at subsequent clinical providers discretion. Patient/guardians urged not to elope from the ED as their condition may be serious if not clinically assessed and managed. Initial orders include: 1- Patient sent to MAIN ED for further evaluation and treatment 2- labs 3- EKG
[2019-04-12 23:15] LABS: Basophils % (Auto) 0.6 % (0.0-1.8); Eosinophils # (Auto) 0.1 K/mm3 (0.0-0.4); Eosinophils % (Auto) 1.3 % (0.0-4.3); Hematocrit 43.6 % (35.5-45.6); Hemoglobin 15.1 gm/dl (11.8-15.2); Lymphocytes # (Auto) 1.4 K/mm3 (1.2-5.4); Lymphocytes % (Auto) 20.5 % (13.4-35.0); Mean Corpuscular HGB Conc 35 % (32-34); Mean Corpuscular Volume 105 fl (84-94); Monocytes # (Auto) 0.8 K/mm3 (0.0-0.8); Monocytes % (Auto) 11.2 % (0.0-7.3); Platelet Count 336 K/mm3 (140-440); Red Blood Count 4.15 M/mm3 (3.65-5.03); Red Cell Distribution Width 14.5 % (13.2-15.2)
[2019-04-12 23:39] LABS: Alanine Aminotransferase 37 units/L (7-56); BUN/Creatinine Ratio 13; Blood Urea Nitrogen 8 mg/dL (9-20); Calcium 9.2 mg/dL (8.4-10.2); Hemolysis Index 9
[2019-04-13] MEDS ORDERED: levETIRAcetam 1000 MG/NS 0.75% 1,000 MG/100 ML BAG IV ONE (01:51)
[2019-04-13] MEDS ORDERED: LORazepam 1 MG TAB PO ONE (01:53)
--- NOTE | 2019-04-13 01:59 | Emergency Department Report ---
ED Seizure HPI - General Chief Complaint: Seizure Stated Complaint: POSS SEIZURE Time Seen by Provider: 04/12/19 21:52 Source: patient, old records reviewed Mode of arrival: Ambulatory Limitations: No Limitations - History of Present Illness Initial Comments: Mr. Alonso is a 63 yo male with hx of seizure disorder, alcohol dependence, bipolar disorder who presents with seizure. He had a witnessed seizure outside of a restaurant. He does not have the money for his seizure medications. Denies fever or pain. Hx of alcohol withdrawal. MD Complaint: seizure -: This evening Witnessed:: Yes Trauma: No Seizure History: known seizure disorder, history of withdrawal se, history of non-compliance Place: street/outdoors Possible Precipitating Event: medication Associated Symptoms: denies other symptoms - Related Data Previous Rx's Medication Instructions Recorded Last Taken Type Clindamycin [Clindamycin CAP] 600 mg PO BID #14 capsule 04/04/19 Unknown Rx Folic Acid [Folvite] 1 mg PO DAILY #30 tablet 04/04/19 Unknown Rx Ibuprofen [Motrin 600 MG tab] 600 mg PO Q8H PRN #10 tablet 04/04/19 Unknown Rx Lactulose [Cephulac] 20 gm PO QDAY 30 Days 04/04/19 Unknown Rx Multivitamin Tab [Multiple Vitamin 1 each PO DAILY #30 tablet 04/04/19 Unknown Rx TAB (Theragran)] Phenytoin [Dilantin] 100 mg PO Q8HR #90 capsule 04/04/19 Unknown Rx Thiamine [Vitamin B-1] 100 mg PO QDAY #30 tablet 04/04/19 Unknown Rx amLODIPine 5 mg PO QDAY #30 tablet 04/04/19 Unknown Rx atenoloL [Tenormin] 50 mg PO QDAY #30 tablet 04/04/19 Unknown Rx chlordiazePOXIDE [Librium] 25 mg PO Q8H #7 capsule 04/04/19 Unknown Rx Phenytoin [Dilantin] 3 tab PO QHS 30 Days #90 capsule 04/13/19 Unknown Rx Allergies Allergy/AdvReac Type Severity Reaction Status Date / Time olanzapine [From Zyprexa] Allergy Nausea Verified 02/15/19 18:02 ED Review of Systems ROS: Stated complaint: POSS SEIZURE Other details as noted in HPI Comment: All other systems reviewed and negative Constitutional: denies: fever, malaise Respiratory: denies: cough Cardiovascular: denies: chest pain Neurological: denies: numbness, paresthesias Psychiatric: denies: auditory hallucinations, visual hallucinations ED Past Medical Hx - Past Medical History Previous Medical History?: Yes Hx Hypertension: Yes Hx Congestive Heart Failure: No Hx Diabetes: No Hx Seizures: Yes Hx Psychiatric Treatment: Yes (anxiety psychosis) Hx Asthma: Yes Hx COPD: No Additional medical history: Other Hx is unclear - Surgical History Additional Surgical History: R knee surgery, left lung injury HIP SURGERY - Social History Smoking Status: Never Smoker Substance Use Type: None - Medications Home Medications: Home Medications Medication Instructions Recorded Confirmed Last Taken Type Clindamycin [Clindamycin CAP] 600 mg PO BID #14 capsule 04/04/19 Unknown Rx Folic Acid [Folvite] 1 mg PO DAILY #30 tablet 04/04/19 Unknown Rx Ibuprofen [Motrin 600 MG tab] 600 mg PO Q8H PRN #10 tablet 04/04/19 Unknown Rx Lactulose [Cephulac] 20 gm PO QDAY 30 Days 04/04/19 Unknown Rx Multivitamin Tab [Multiple Vitamin 1 each PO DAILY #30 tablet 04/04/19 Unknown Rx TAB (Theragran)] Phenytoin [Dilantin] 100 mg PO Q8HR #90 capsule 04/04/19 Unknown Rx Thiamine [Vitamin B-1] 100 mg PO QDAY #30 tablet 04/04/19 Unknown Rx amLODIPine 5 mg PO QDAY #30 tablet 04/04/19 Unknown Rx atenoloL [Tenormin] 50 mg PO QDAY #30 tablet 04/04/19 Unknown Rx chlordiazePOXIDE [Librium] 25 mg PO Q8H #7 capsule 04/04/19 Unknown Rx Phenytoin [Dilantin] 3 tab PO QHS 30 Days #90 capsule 04/13/19 Unknown Rx ED Physical Exam - General Limitations: No Limitations General appearance: alert, in no apparent distress, other (disheveled clothing awake alert insightful) - Head Head exam: Present: atraumatic, normocephalic - Eye Eye exam: Present: normal appearance - ENT ENT exam: Present: mucous membranes moist - Neck Neck exam: Present: normal inspection, full ROM - Respiratory Respiratory exam: Present: normal lung sounds bilaterally. Absent: respiratory distress, wheezes, rales, rhonchi - Cardiovascular Cardiovascular Exam: Present: regular rate, normal rhythm, normal heart sounds. Absent: systolic murmur, diastolic murmur, rubs, gallop - GI/Abdominal GI/Abdominal exam: Present: soft, normal bowel sounds. Absent: distended, tenderness, guarding, rebound - Rectal Rectal exam: Present: deferred - Extremities Exam Extremities exam: Present: normal inspection - Neurological Exam Neurological exam: Present: alert, oriented X3 - Psychiatric Psychiatric exam: Present: normal affect, normal mood - Skin Skin exam: Present: warm, dry, intact, normal color. Absent: rash ED Course Vital Signs 04/12/19 21:41 Temperature 98.4 F Pulse Rate 87 Respiratory 20 Rate Blood Pressure 123/70 O2 Sat by Pulse 96 Oximetry ED Medical Decision Making - Lab Data Result diagrams: 04/12/19 22:43 04/12/19 22:43 Laboratory Results - last 24 hr 04/12/19 04/12/19 04/12/19 22:43 22:43 22:43 WBC 6.9 RBC 4.15 Hgb 15.1 Hct 43.6 MCV 105 H MCH 36 H MCHC 35 H RDW 14.5 Plt Count 336 Lymph % (Auto) 20.5 [place] % (Auto) 11.2 H Eos % (Auto) 1.3 Baso % (Auto) 0.6 Lymph # 1.4 [place] # 0.8 Eos # 0.1 Baso # 0.0 Seg Neutrophils % 66.4 Seg Neutrophils # 4.6 Sodium 134 L Potassium 4.1 Chloride 95.0 L Carbon Dioxide 22 Anion Gap 21 BUN 8 L Creatinine 0.6 L Estimated GFR > 60 BUN/Creatinine Ratio 13 Glucose 83 Calcium 9.2 Total Bilirubin 0.30 AST 39 ALT 37 Alkaline Phosphatase 120 Total Protein 6.5 Albumin 4.0 Albumin/Globulin Ratio 1.6 Salicylates < 0.3 L Acetaminophen Plasma/Serum Alcohol 04/12/19 04/12/19 22:43 22:43 WBC RBC Hgb Hct MCV MCH MCHC RDW Plt Count Lymph % (Auto) [place] % (Auto) Eos % (Auto) Baso % (Auto) Lymph # [place] # Eos # Baso # Seg Neutrophils % Seg Neutrophils # Sodium Potassium Chloride Carbon Dioxide Anion Gap BUN Creatinine Estimated GFR BUN/Creatinine Ratio Glucose Calcium Total Bilirubin AST ALT Alkaline Phosphatase Total Protein Albumin Albumin/Globulin Ratio Salicylates Acetaminophen < 5.0 L Plasma/Serum Alcohol 0.09 H - Medical Decision Making seizure, breakthrough seizure suspected, no overt signs of alcohol withdrawal, normal vital signs, normal mental status. Observed in the ED for 6 hours without seizure Given IV keppra load and PO ativan Dc'd to selfcare rx: dilantin Critical care attestation.: If time is entered above; I have spent that time in minutes in the direct care of this critically ill patient, excluding procedure time. ED Disposition Clinical Impression: Seizures, Alcohol dependence Disposition: DC- TO HOME OR SELFCARE Is pt being admited?: No Does the pt Need Aspirin: No Condition: Stable Instructions: Recurrent Seizures Adult (ED) Prescriptions: Phenytoin [Dilantin] 3 tab PO QHS 30 Days #90 capsule Referrals: TANA DEL VALLE MD [Staff Physician] - 3-5 Days
[2019-04-13 02:24] VITALS: BP 150/87
[2019-04-13] MEDS ORDERED: levETIRAcetam 500 MG TAB PO ONE ×2 (02:37→02:40)
== END 2019-04-13 02:44 | disposition home or self-care (01) ==
LOC: ED 20:41
DX: G40.909 Epilepsy, unspecified, not intractable, without status epilepticus (principal); F10.20 Alcohol dependence, uncomplicated; I10 Essential (primary) hypertension; F41.9 Anxiety disorder, unspecified; J45.909 Unspecified asthma, uncomplicated; Z98.890 Other specified postprocedural states; Z79.1 Long term (current) use of non-steroidal anti-inflammatories (NSAID); Z79.899 Other long term (current) drug therapy; Z88.8 Allergy status to other drugs, medicaments and biological substances
CPT/HCPCS: 36415; 80053; 85025; 99283; J1953; 80320; G0480

== ENCOUNTER 2019-04-14 04:18 | Emergency (ER) | payer SELFPAY ==
[2019-04-14 04:57] VITALS: BP 140/80
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
== END 2019-04-14 08:30 | disposition left against medical advice (07) ==
LOC: ED 04:18
DX: Z59.0 Homelessness (principal)
CPT/HCPCS: 99281

== ENCOUNTER 2019-04-14 23:59 | Emergency (ER) | payer SELFPAY ==
[2019-04-15] MEDS ORDERED: levETIRAcetam 500 MG TAB PO ONE (04:29)
--- NOTE | 2019-04-15 05:33 | Emergency Department Report ---
ED Seizure HPI - General Chief Complaint: Medical Clearance Stated Complaint: SEIZURE Time Seen by Provider: 04/15/19 04:21 Source: patient, police Mode of arrival: Ambulatory Limitations: Other - History of Present Illness Initial Comments: Patient is a 63-year-old male who presented with possible seizure activity. Patient was a while for house when this occurred. Patient had seizure-like activity from the police after they have been called because of a disturbance involving the patient. Patient states he does not remember this incident MD Complaint: possible seizure (patient has been here several times for seizures seizure-like activity. Patient has a history of being noncompliant with medications. Patient states that lately he has taken keppa here and there but not consistently) Seizure History: history of non-compliance - Related Data Previous Rx's Medication Instructions Recorded Last Taken Type Clindamycin [Clindamycin CAP] 600 mg PO BID #14 capsule 04/04/19 Unknown Rx Folic Acid [Folvite] 1 mg PO DAILY #30 tablet 04/04/19 Unknown Rx Ibuprofen [Motrin 600 MG tab] 600 mg PO Q8H PRN #10 tablet 04/04/19 Unknown Rx Lactulose [Cephulac] 20 gm PO QDAY 30 Days 04/04/19 Unknown Rx Multivitamin Tab [Multiple Vitamin 1 each PO DAILY #30 tablet 04/04/19 Unknown Rx TAB (Theragran)] Phenytoin [Dilantin] 100 mg PO Q8HR #90 capsule 04/04/19 Unknown Rx Thiamine [Vitamin B-1] 100 mg PO QDAY #30 tablet 04/04/19 Unknown Rx amLODIPine 5 mg PO QDAY #30 tablet 04/04/19 Unknown Rx atenoloL [Tenormin] 50 mg PO QDAY #30 tablet 04/04/19 Unknown Rx chlordiazePOXIDE [Librium] 25 mg PO Q8H #7 capsule 04/04/19 Unknown Rx Phenytoin [Dilantin] 3 tab PO QHS 30 Days #90 capsule 04/13/19 Unknown Rx levETIRAcetam [Keppra TAB] 500 mg PO BID #60 tablet 04/15/19 Unknown Rx Allergies Allergy/AdvReac Type Severity Reaction Status Date / Time olanzapine [From Zyprexa] Allergy Nausea Verified 02/15/19 18:02 ED Review of Systems ROS: Stated complaint: SEIZURE Other details as noted in HPI Comment: All other systems reviewed and negative ED Past Medical Hx - Past Medical History Previous Medical History?: Yes Hx Hypertension: Yes Hx Congestive Heart Failure: No Hx Diabetes: No Hx Seizures: Yes Hx Psychiatric Treatment: Yes (anxiety psychosis) Hx Asthma: Yes Hx COPD: No Additional medical history: Other Hx is unclear - Surgical History Past Surgical History?: Yes Additional Surgical History: R knee surgery, left lung injury HIP SURGERY - Social History Smoking Status: Current Every Day Smoker Substance Use Type: None - Medications Home Medications: Home Medications Medication Instructions Recorded Confirmed Last Taken Type Clindamycin [Clindamycin CAP] 600 mg PO BID #14 capsule 04/04/19 Unknown Rx Folic Acid [Folvite] 1 mg PO DAILY #30 tablet 04/04/19 Unknown Rx Ibuprofen [Motrin 600 MG tab] 600 mg PO Q8H PRN #10 tablet 04/04/19 Unknown Rx Lactulose [Cephulac] 20 gm PO QDAY 30 Days 04/04/19 Unknown Rx Multivitamin Tab [Multiple Vitamin 1 each PO DAILY #30 tablet 04/04/19 Unknown Rx TAB (Theragran)] Phenytoin [Dilantin] 100 mg PO Q8HR #90 capsule 04/04/19 Unknown Rx Thiamine [Vitamin B-1] 100 mg PO QDAY #30 tablet 04/04/19 Unknown Rx amLODIPine 5 mg PO QDAY #30 tablet 04/04/19 Unknown Rx atenoloL [Tenormin] 50 mg PO QDAY #30 tablet 04/04/19 Unknown Rx chlordiazePOXIDE [Librium] 25 mg PO Q8H #7 capsule 04/04/19 Unknown Rx Phenytoin [Dilantin] 3 tab PO QHS 30 Days #90 capsule 04/13/19 Unknown Rx levETIRAcetam [Keppra TAB] 500 mg PO BID #60 tablet 04/15/19 Unknown Rx ED Physical Exam - General Limitations: Other General appearance: alert, in no apparent distress - Head Head exam: Present: atraumatic, normocephalic - Eye Eye exam: Present: normal appearance - ENT ENT exam: Present: mucous membranes moist - Neck Neck exam: Present: normal inspection - Respiratory Respiratory exam: Present: normal lung sounds bilaterally. Absent: respiratory distress, wheezes, rales, rhonchi - Cardiovascular Cardiovascular Exam: Present: regular rate, normal rhythm. Absent: systolic murmur, diastolic murmur, rubs, gallop - GI/Abdominal GI/Abdominal exam: Present: soft, normal bowel sounds. Absent: distended, tenderness, guarding - Rectal Rectal exam: Present: deferred - Extremities Exam Extremities exam: Present: normal inspection - Back Exam Back exam: Present: normal inspection - Neurological Exam Neurological exam: Present: alert, oriented X3 - Psychiatric Psychiatric exam: Present: normal affect, normal mood - Skin Skin exam: Present: warm, dry, intact, normal color. Absent: rash ED Course Vital Signs 04/15/19 04/15/19 04/15/19 00:12 04:19 04:23 Temperature 97.6 F Pulse Rate 88 76 Respiratory 18 10 L 10 L Rate Blood Pressure 150/89 145/81 O2 Sat by Pulse 98 97 97 Oximetry ED Medical Decision Making - Medical Decision Making Patient has had no evidence of seizure activity here. Been given a loading dose of Keppra orally. We watched the patient. Patient will be discharged home. I do question whether the patient actually had a seizure tonight secondary to him having a seizure only after police were called due to a disturbance. Nevertheless patient will be given a prescription for Her discharged home. Critical care attestation.: If time is entered above; I have spent that time in minutes in the direct care of this critically ill patient, excluding procedure time. ED Disposition Clinical Impression: Seizure Disposition: DC-01 TO HOME OR SELFCARE Is pt being admited?: No Does the pt Need Aspirin: No Condition: Stable Instructions: Recurrent Seizures Adult (ED) Prescriptions: levETIRAcetam [Keppra TAB] 500 mg PO BID #60 tablet Referrals: WALLACE GOMEZ MD [Referring] - 3-5 Days Time of Disposition: 05:32
[2019-04-15] MEDS ORDERED: ACETAMINOPHEN 325 MG TAB PO ONE (05:42)
[2019-04-15 07:01] VITALS: BP 142/80
== END 2019-04-15 06:15 | disposition home or self-care (01) ==
LOC: ED 23:59
DX: R56.9 Unspecified convulsions (principal); I10 Essential (primary) hypertension; J45.909 Unspecified asthma, uncomplicated; F17.200 Nicotine dependence, unspecified, uncomplicated; F41.9 Anxiety disorder, unspecified; Z98.890 Other specified postprocedural states; Z79.899 Other long term (current) drug therapy; Z88.8 Allergy status to other drugs, medicaments and biological substances

== ENCOUNTER 2019-04-17 21:11 | Emergency (ER) | payer SELFPAY ==
[2019-04-17 21:56] LABS: Basophils # (Auto) 0.1 K/mm3 (0.0-0.1); Basophils % (Auto) 2.7 % (0.0-1.8); Eosinophils # (Auto) 0.1 K/mm3 (0.0-0.4); Eosinophils % (Auto) 2.7 % (0.0-4.3); Hematocrit 42.4 % (35.5-45.6); Hemoglobin 14.4 gm/dl (11.8-15.2); Lymphocytes # (Auto) 1.4 K/mm3 (1.2-5.4); Lymphocytes % (Auto) 28.9 % (13.4-35.0); Mean Corpuscular HGB Conc 34 % (32-34); Mean Corpuscular Volume 106 fl (84-94); Monocytes # (Auto) 0.5 K/mm3 (0.0-0.8); Monocytes % (Auto) 9.7 % (0.0-7.3); Platelet Count 335 K/mm3 (140-440); Red Blood Count 4.01 M/mm3 (3.65-5.03); Red Cell Distribution Width 14.6 % (13.2-15.2)
[2019-04-17 22:17] LABS: Alanine Aminotransferase 20 units/L (7-56); Albumin 3.4 g/dL (3.9-5); BUN/Creatinine Ratio 12; Blood Urea Nitrogen 7 mg/dL (9-20); Calcium 8.6 mg/dL (8.4-10.2); Hemolysis Index 9
--- NOTE | 2019-04-17 23:01 | XRay Report ---
IF WRIST 4 VIEWS INDICATION / CLINICAL INFORMATION: sz left wrist pain and swelling COMPARISON: None available. FINDINGS: BONES / JOINT(S): No acute fracture or subluxation. Chronic avulsion of the ulnar styloid. Degenerati ve change at the distal radial ulnar joint, radiocarpal joint and more advanced DJD at the first carp ometacarpal joint. SOFT TISSUES: No significant abnormality. ADDITIONAL FINDINGS: None. Signer Name: Manuel Hamilton MD Signed: 04/17/2019 10:57 PM Workstation Name: [id number]
[2019-04-17] MEDS ORDERED: levETIRAcetam 500 MG TAB PO ONE (23:15)
[2019-04-17] MEDS ORDERED: LORazepam 1 MG TAB PO ONE (23:15)
[2019-04-17] MEDS ORDERED: HYDROcodone/ACETAMINOPHEN 5-325 MG TAB PO ONE (23:18)
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
[2019-04-18 01:23] VITALS: BP 118/80
== END 2019-04-18 00:04 | disposition home or self-care (01) ==
LOC: ED 21:11
DX: S60.212A Contusion of left wrist, initial encounter (principal); G40.909 Epilepsy, unspecified, not intractable, without status epilepticus; F10.10 Alcohol abuse, uncomplicated; I10 Essential (primary) hypertension; F41.9 Anxiety disorder, unspecified; F32.9 Major depressive disorder, single episode, unspecified; F17.200 Nicotine dependence, unspecified, uncomplicated; Z98.890 Other specified postprocedural states; Z79.899 Other long term (current) drug therapy; Z88.8 Allergy status to other drugs, medicaments and biological substances; Z91.14 Patient's other noncompliance with medication regimen; X58.XXXA Exposure to other specified factors, initial encounter; Y93.89 Activity, other specified; Y92.89 Other specified places as the place of occurrence of the external cause; Y99.8 Other external cause status
CPT/HCPCS: 36415; 80053; 80320; 85025; G0480

== ENCOUNTER 2019-05-02 15:11 | Emergency (ER) | payer SELFPAY ==
--- NOTE | 2019-05-02 21:03 | Cat Scan Report ---
NONENHANCED CT SCAN OF THE HEAD: INDICATION / CLINICAL INFORMATION: 63 years Male; head trauma with LOC. TECHNIQUE: Routine CT head without contrast. All CT scans at this location are performed using CT dos e reduction for ALARA by means of automated exposure control. COMPARISON: CT scan of the head from March 13, 2019 FINDINGS: BRAIN / INTRACRANIAL CONTENTS: No intracranial sequela from the trauma. No scalp hematoma. No air-flu id level in the visualized portions of the paranasal sinuses. No acute hemorrhage, mass effect, midline shift, hydrocephalus, or acute, large territorial infarct. No chronic infarct or focal atrophy. Normal brain volume and ventricular/sulcal size for age. Conflu ent periventricular low-attenuation areas are seen around the occipital horns and around the frontal horns probably due to mild chronic small vessel ischemic changes. These findings remain unchanged. Prominent. However, this remains unchanged since December 2017. Mild volume loss is seen in the cerebellar vermis, cerebellar hemispheres. CRANIOCERVICAL JUNCTION: No significant abnormality. ORBITS: No significant abnormality of visualized orbits. SINUSES / MASTOIDS: No significant abnormality of the visualized paranasal sinuses or mastoid air deepika ls. ADDITIONAL FINDINGS: None. IMPRESSION: No intracranial sequela from the trauma CT findings remain unchanged since March 13, 2019. Signer Name: Allen Sotelo MD Signed: 05/02/2019 8:58 PM Workstation Name: [id number]
[2019-05-02 21:18] LABS: Hematocrit 39.3 % (35.5-45.6); Hemoglobin 13.4 gm/dl (11.8-15.2); Mean Corpuscular HGB Conc 34 % (32-34); Mean Corpuscular Volume 104 fl (84-94); Platelet Count 195 K/mm3 (140-440); Red Blood Count 3.79 M/mm3 (3.65-5.03); Red Cell Distribution Width 14.1 % (13.2-15.2)
[2019-05-02 21:29] LABS: Alanine Aminotransferase 12 units/L (7-56); Albumin 3.6 g/dL (3.9-5); BUN/Creatinine Ratio 18; Blood Urea Nitrogen 14 mg/dL (9-20); Calcium 8.5 mg/dL (8.4-10.2); Hemolysis Index 22
--- NOTE | 2019-05-02 22:05 | Emergency Department Report ---
ED General Adult HPI - General Chief complaint: Head Injury Stated complaint: SEIZURE SX Time Seen by Provider: 05/02/19 20:13 Source: patient Mode of arrival: Wheelchair Limitations: No Limitations - History of Present Illness Initial comments: Patient presents emergency department chief complaint of a fall and a headache. Patient states that he tripped and hit his head against an unknown object. Patient does report loss of consciousness status post a fall. Patient states he remembers events prior to the fall. Patient also complains of being suicidal and states he needs medications for his psychiatric issues. Patient states he has schizophrenia. Patient has no plan for his suicidal thoughts. -: Sudden Location: head Radiation: non-radiation Severity scale (0 -10): 3 Quality: aching Consistency: constant Improves with: none Worsens with: none Associated Symptoms: denies other symptoms Treatments Prior to Arrival: none - Related Data Previous Rx's Medication Instructions Recorded Last Taken Type Clindamycin [Clindamycin CAP] 600 mg PO BID #14 capsule 04/04/19 Unknown Rx Folic Acid [Folvite] 1 mg PO DAILY #30 tablet 04/04/19 Unknown Rx Ibuprofen [Motrin 600 MG tab] 600 mg PO Q8H PRN #10 tablet 04/04/19 Unknown Rx Lactulose [Cephulac] 20 gm PO QDAY 30 Days 04/04/19 Unknown Rx Multivitamin Tab [Multiple Vitamin 1 each PO DAILY #30 tablet 04/04/19 Unknown Rx TAB (Theragran)] Phenytoin [Dilantin] 100 mg PO Q8HR #90 capsule 04/04/19 Unknown Rx Thiamine [Vitamin B-1] 100 mg PO QDAY #30 tablet 04/04/19 Unknown Rx amLODIPine 5 mg PO QDAY #30 tablet 04/04/19 Unknown Rx atenoloL [Tenormin] 50 mg PO QDAY #30 tablet 04/04/19 Unknown Rx chlordiazePOXIDE [Librium] 25 mg PO Q8H #7 capsule 04/04/19 Unknown Rx Phenytoin [Dilantin] 3 tab PO QHS 30 Days #90 capsule 04/13/19 Unknown Rx levETIRAcetam [Keppra TAB] 500 mg PO BID #60 tablet 04/15/19 Unknown Rx Allergies Allergy/AdvReac Type Severity Reaction Status Date / Time olanzapine [From Zyprexa] Allergy Nausea Verified 02/15/19 18:02 ED Review of Systems ROS: Stated complaint: SEIZURE SX Other details as noted in HPI Comment: All other systems reviewed and negative Constitutional: denies: chills, fever Eyes: denies: eye pain, eye discharge, vision change ENT: denies: ear pain, throat pain Respiratory: denies: cough, shortness of breath, wheezing Cardiovascular: denies: chest pain, palpitations Endocrine: no symptoms reported Gastrointestinal: denies: abdominal pain, nausea, diarrhea Genitourinary: denies: urgency, dysuria Musculoskeletal: denies: back pain, joint swelling, arthralgia Skin: denies: rash, lesions Neurological: headache. denies: weakness, paresthesias Psychiatric: suicidal thoughts. denies: anxiety, depression, auditory brittney lucinations, visual hallucinations, homicidal thoughts Hematological/Lymphatic: denies: easy bleeding, easy bruising ED Past Medical Hx - Past Medical History Previous Medical History?: Yes Hx Hypertension: Yes Hx Congestive Heart Failure: No Hx Diabetes: No Hx Seizures: Yes Hx Psychiatric Treatment: Yes (anxiety psychosis) Hx Asthma: Yes Hx COPD: No Additional medical history: Pancreatisis. legally blind - Surgical History Past Surgical History?: Yes Additional Surgical History: R knee surgery, left lung injury HIP SURGERY - Social History Smoking Status: Never Smoker Substance Use Type: None - Medications Home Medications: Home Medications Medication Instructions Recorded Confirmed Last Taken Type Clindamycin [Clindamycin CAP] 600 mg PO BID #14 capsule 04/04/19 Unknown Rx Folic Acid [Folvite] 1 mg PO DAILY #30 tablet 04/04/19 Unknown Rx Ibuprofen [Motrin 600 MG tab] 600 mg PO Q8H PRN #10 tablet 04/04/19 Unknown Rx Lactulose [Cephulac] 20 gm PO QDAY 30 Days 04/04/19 Unknown Rx Multivitamin Tab [Multiple Vitamin 1 each PO DAILY #30 tablet 04/04/19 Unknown Rx TAB (Theragran)] Phenytoin [Dilantin] 100 mg PO Q8HR #90 capsule 04/04/19 Unknown Rx Thiamine [Vitamin B-1] 100 mg PO QDAY #30 tablet 04/04/19 Unknown Rx amLODIPine 5 mg PO QDAY #30 tablet 04/04/19 Unknown Rx atenoloL [Tenormin] 50 mg PO QDAY #30 tablet 04/04/19 Unknown Rx chlordiazePOXIDE [Librium] 25 mg PO Q8H #7 capsule 04/04/19 Unknown Rx Phenytoin [Dilantin] 3 tab PO QHS 30 Days #90 capsule 04/13/19 Unknown Rx levETIRAcetam [Keppra TAB] 500 mg PO BID #60 tablet 04/15/19 Unknown Rx ED Physical Exam - General Limitations: No Limitations General appearance: alert, in no apparent distress - Head Head exam: Present: atraumatic, normocephalic - Eye Eye exam: Present: normal appearance, PERRL, EOMI - ENT ENT exam: Present: mucous membranes moist - Neck Neck exam: Present: normal inspection - Respiratory Respiratory exam: Present: normal lung sounds bilaterally. Absent: respiratory distress - Cardiovascular Cardiovascular Exam: Present: regular rate, normal rhythm. Absent: systolic murmur, diastolic murmur, rubs, gallop - GI/Abdominal GI/Abdominal exam: Present: soft, normal bowel sounds. Absent: distended, tenderness - Rectal Rectal exam: Present: deferred - Extremities Exam Extremities exam: Present: normal inspection - Back Exam Back exam: Present: normal inspection - Neurological Exam Neurological exam: Present: alert, oriented X3, CN II-XII intact. Absent: motor sensory deficit - Psychiatric Psychiatric exam: Present: normal affect, normal mood, suicidal ideation. Absent: homicidal ideation - Skin Skin exam: Present: warm, dry, intact, normal color. Absent: rash ED Course Vital Signs 05/02/19 05/02/19 05/02/19 15:29 20:19 20:22 Temperature 98 F Pulse Rate 97 H 103 H Respiratory 18 17 17 Rate Blood Pressure 96/58 148/79 O2 Sat by Pulse 94 98 100 Oximetry ED Medical Decision Making - Lab Data Result diagrams: 05/02/19 20:56 05/02/19 20:56 Lab Results 05/02/19 05/02/19 05/02/19 Range/Units 20:56 20:56 20:56 WBC 5.8 (4.5-11.0) K/mm3 RBC 3.79 (3.65-5.03) M/mm3 Hgb 13.4 (11.8-15.2) gm/dl Hct 39.3 (35.5-45.6) % MCV 104 H (84-94) fl MCH 35 H (28-32) pg MCHC 34 (32-34) % RDW 14.1 (13.2-15.2) % Plt Count 195 (140-440) K/mm3 Wise % (Auto) [employer] Service [employer]r Sodium 139 (137-145) mmol/L Potassium 4.1 (3.6-5.0) mmol/L Chloride 105.2 (98-107) mmol/L Carbon Dioxide 21 L (22-30) mmol/L Anion Gap 17 mmol/L BUN 14 (9-20) mg/dL Creatinine 0.8 (0.8-1.5) mg/dL Estimated GFR > 60 ml/min BUN/Creatinine Ratio 18 % Glucose 107 H (75-100) mg/dL Calcium 8.5 (8.4-10.2) mg/dL Total Bilirubin 0.20 (0.1-1.2) mg/dL AST 18 (5-40) units/L ALT 12 (7-56) units/L Alkaline Phosphatase 90 (35-129) units/L Total Protein 6.2 L (6.3-8.2) g/dL Albumin 3.6 L (3.9-5) g/dL Albumin/Globulin Ratio 1.4 % Salicylates < 0.3 L (2.8-20.0) mg/dL Acetaminophen (10.0-30.0) ug/mL Plasma/Serum Alcohol (0-0.07) % 05/02/19 05/02/19 Range/Units 20:56 20:56 WBC (4.5-11.0) K/mm3 RBC (3.65-5.03) M/mm3 Hgb (11.8-15.2) gm/dl Hct (35.5-45.6) % MCV (84-94) fl MCH (28-32) pg MCHC (32-34) % RDW (13.2-15.2) % Plt Count (140-440) K/mm3 [place] % (Auto) Sodium (137-145) mmol/L Potassium (3.6-5.0) mmol/L Chloride (98-107) mmol/L Carbon Dioxide (22-30) mmol/L Anion Gap mmol/L BUN (9-20) mg/dL Creatinine (0.8-1.5) mg/dL Estimated GFR ml/min BUN/Creatinine Ratio % Glucose (75-100) mg/dL Calcium (8.4-10.2) mg/dL Total Bilirubin (0.1-1.2) mg/dL AST (5-40) units/L ALT (7-56) units/L Alkaline Phosphatase (35-129) units/L Total Protein (6.3-8.2) g/dL Albumin (3.9-5) g/dL Albumin/Globulin Ratio % Salicylates (2.8-20.0) mg/dL Acetaminophen < 5.0 L (10.0-30.0) ug/mL Plasma/Serum Alcohol < 0.01 (0-0.07) % - Radiology Data Radiology results: report reviewed - Medical Decision Making Patient medically cleared Patient awaiting mental health evaluation Critical care attestation.: If time is entered above; I have spent that time in minutes in the direct care of this critically ill patient, excluding procedure time. ED Disposition Clinical Impression: Closed head injury, Suicidal ideation Disposition: DC/TX-65 PSY HOSP/PSY UNIT Is pt being admited?: No Does the pt Need Aspirin: No Condition: Stable Referrals: PRIMARY CARE, [Primary Care Provider] - 3-5 Days
[2019-05-02 22:18] LABS: RBC Morphology Normal; Total Cells Counted 100
[2019-05-02 22:24] LABS: Bilirubin,Urine NEG (Negative); Blood,Urine NEG (Negative); Color,Urine Yellow (Yellow); Mucus,Urine FEW /HPF; Protein,Urine <15 mg/dL mg/dL (Negative)
[2019-05-02 22:30] LABS: Amphetamine Screen,Urine PRESUMPTIVE NEGATIVE; Benzodiazepines Screen,Urine PRESUMPTIVE NEGATIVE; Cannabinoid Screen,Urine PRESUMPTIVE NEGATIVE; Cocaine Screen,Urine PRESUMPTIVE NEGATIVE; Methadone Screen,Urine PRESUMPTIVE NEGATIVE; Opiate Screen,Urine PRESUMPTIVE NEGATIVE
[2019-05-02] MEDS ORDERED: ACETAMINOPHEN 325 MG TAB PO ONE (23:07)
[2019-05-03 09:41] VITALS: BP 173/97
== END 2019-05-03 13:10 ==
LOC: ED 15:11
DX: S09.90XA Unspecified injury of head, initial encounter (principal); R45.851 Suicidal ideations; I10 Essential (primary) hypertension; G40.909 Epilepsy, unspecified, not intractable, without status epilepticus; F41.9 Anxiety disorder, unspecified; J45.909 Unspecified asthma, uncomplicated; Z98.890 Other specified postprocedural states; Z79.1 Long term (current) use of non-steroidal anti-inflammatories (NSAID); Z79.899 Other long term (current) drug therapy; Z88.8 Allergy status to other drugs, medicaments and biological substances; W18.00XA Striking against unspecified object with subsequent fall, initial encounter; Y93.89 Activity, other specified; Y92.89 Other specified places as the place of occurrence of the external cause; Y99.8 Other external cause status
CPT/HCPCS: 36415; 70450; 80053; 80307; 80320; 81001; 85007; 85025; G0480

== ENCOUNTER 2020-01-03 21:27 | Emergency (ER) | payer SELFPAY ==
[2020-01-04 02:43] LABS: Basophils # (Auto) 0.1 K/mm3 (0.0-0.1); Basophils % (Auto) 1.1 % (0.0-1.8); Eosinophils % (Auto) 0.4 % (0.0-4.3); Lymphocytes # (Auto) 1.2 K/mm3 (1.2-5.4); Lymphocytes % (Auto) 16.9 % (13.4-35.0); Mean Corpuscular HGB Conc 36 % (32-34); Mean Corpuscular Volume 107 fl (84-94); Monocytes # (Auto) 0.7 K/mm3 (0.0-0.8); Monocytes % (Auto) 9.6 % (0.0-7.3); Platelet Count 283 K/mm3 (140-440); Red Blood Count 4.52 M/mm3 (3.65-5.03); Red Cell Distribution Width 13.9 % (13.2-15.2)
[2020-01-04 03:04] LABS: Hematocrit 48.3 % (35.5-45.6); Hemoglobin 17.4 gm/dl (11.8-15.2)
[2020-01-04 03:07] LABS: Alanine Aminotransferase 78 units/L (7-56); BUN/Creatinine Ratio 10; Blood Urea Nitrogen 6 mg/dL (9-20); Calcium 8.6 mg/dL (8.4-10.2); Hemolysis Index 14
[2020-01-04 05:21] VITALS: BP 131/107
--- NOTE | 2020-01-04 06:24 | Emergency Department Report ---
HPI - General Chief Complaint: Weakness Time Seen by Provider: 01/04/20 06:06 - HPI HPI: This is a 64-year-old male who presents to the emergency department via EMS with the original complaint of having a questionable seizure about 1 hour prior to his EMS call. The EMS report says that once the patient got into the rig he felt that maybe he was just "cold and shivering." At the time of my examination the patient complains of "I have been sick for the past 6 months" with symptoms of an abdominal virus. The patient complains of persistent nausea and vomiting. The patient also admits to a history of regular alcohol consumption. The patient says that he is drinking alcohol to "treat my mental illness" which he says includes anxiety and depression. He denies any suicidal or homicidal ideations. ED Past Medical Hx - Past Medical History Previous Medical History?: Yes Hx Hypertension: Yes Hx Congestive Heart Failure: No Hx Diabetes: No Hx Seizures: Yes Hx Psychiatric Treatment: Yes (anxiety psychosis) Hx Asthma: Yes Hx COPD: No Additional medical history: Pancreatisis. legally blind - Surgical History Past Surgical History?: Yes Additional Surgical History: R knee surgery, left lung injury HIP SURGERY - Social History Smoking Status: Never Smoker Substance Use Type: Alcohol - Medications Home Medications: Home Medications Medication Instructions Recorded Confirmed Last Taken Type Ibuprofen [Motrin 600 MG tab] 600 mg PO Q8H PRN #10 tablet 04/04/19 05/03/19 Unknown Rx Multivitamin Tab [Multiple Vitamin 1 each PO DAILY #30 tablet 04/04/19 05/03/19 Unknown Rx TAB (Theragran)] Phenytoin [Dilantin] 100 mg PO Q8HR #90 capsule 04/04/19 05/03/19 Unknown Rx amLODIPine 5 mg PO QDAY #30 tablet 04/04/19 05/03/19 Unknown Rx atenoloL [Tenormin] 50 mg PO QDAY #30 tablet 04/04/19 05/03/19 Unknown Rx chlordiazePOXIDE [Librium] 25 mg PO Q8H #7 capsule 04/04/19 05/03/19 Unknown Rx levETIRAcetam [Keppra TAB] 500 mg PO BID #60 tablet 04/15/19 05/03/19 Unknown Rx chlordiazePOXIDE [Librium] 25 mg PO Q8H PRN #8 capsule 01/04/20 Unknown Rx ED Review of Systems ROS: Stated complaint: WEAKNESS POSSIBLE SEIZURE Other details as noted in HPI Comment: All other systems reviewed and negative Constitutional: chills. denies: fever Eyes: denies: eye pain, vision change ENT: denies: ear pain, throat pain Respiratory: denies: cough, shortness of breath Cardiovascular: denies: palpitations, edema Gastrointestinal: nausea, vomiting Genitourinary: denies: dysuria, discharge Musculoskeletal: denies: back pain, arthralgia Skin: denies: rash, lesions Neurological: denies: numbness, paresthesias Physical Exam - Physical Exam Vital Signs: Vital Signs 01/04/20 01/04/20 01/04/20 02:03 02:18 05:20 Temperature 98.0 F 98.1 F Pulse Rate 131 H 116 H 102 H Respiratory 18 20 Rate Blood Pressure 140/85 Blood Pressure 131/107 [Right] O2 Sat by Pulse 97 100 Oximetry Physical Exam: GENERAL: The patient is well-developed well-nourished. Disheveled appearance. HENT: Normocephalic. Atraumatic. Patient has moist mucous membranes. EYES: Extraocular motions are intact. NECK: Supple. Trachea is midline. CHEST/LUNGS: Clear to auscultation. There is no respiratory distress noted. HEART/CARDIOVASCULAR: Regular. There is mild tachycardia. There is no murmur. ABDOMEN: Abdomen is soft, nontender. Patient has normal bowel sounds. There is no abdominal distention. SKIN: Skin is warm and dry. NEURO: The patient is awake, alert, and oriented. The patient is cooperative. The patient has no focal neurologic deficits. Normal speech. MUSCULOSKELETAL: There is no tenderness or deformity. There is no limitation range of motion. ED Course Vital Signs 01/04/20 01/04/20 01/04/20 02:03 02:18 05:20 Temperature 98.0 F 98.1 F Pulse Rate 131 H 116 H 102 H Respiratory 18 20 Rate Blood Pressure 140/85 Blood Pressure 131/107 [Right] O2 Sat by Pulse 97 100 Oximetry - Reevaluation(s) Reevaluation #1: 01/04/20 14:17 Lab Results 01/04/20 01/04/20 01/04/20 Range/Units 02:18 02:18 06:57 WBC 7.0 (4.5-11.0) K/mm3 RBC 4.52 (3.65-5.03) M/mm3 Hgb 17.4 H (11.8-15.2) gm/dl Hct 48.3 H (35.5-45.6) % MCV 107 H (84-94) fl MCH 38 H (28-32) pg MCHC 36 H (32-34) % RDW 13.9 (13.2-15.2) % Plt Count 283 (140-440) K/mm3 Lymph % (Auto) 16.9 (13.4-35.0) % [place] % (Auto) 9.6 H (0.0-7.3) % Eos % (Auto) 0.4 (0.0-4.3) % Baso % (Auto) 1.1 (0.0-1.8) % Lymph # (Auto) 1.2 (1.2-5.4) K/mm3 [place] # (Auto) 0.7 (0.0-0.8) K/mm3 Eos # (Auto) 0.0 (0.0-0.4) K/mm3 Baso # (Auto) 0.1 (0.0-0.1) K/mm3 Seg Neutrophils % 72.0 H (40.0-70.0) % Seg Neutrophils # 5.0 (1.8-7.7) K/mm3 Sodium 136 L (137-145) mmol/L Potassium 4.1 (3.6-5.0) mmol/L Chloride 95.7 L (98-107) mmol/L Carbon Dioxide 20 L (22-30) mmol/L Anion Gap 24 mmol/L BUN 6 L (9-20) mg/dL Creatinine 0.6 L (0.8-1.3) mg/dL Estimated GFR > 60 ml/min BUN/Creatinine Ratio 10 % Glucose 107 H (75-100) mg/dL Calcium 8.6 (8.4-10.2) mg/dL Magnesium (1.7-2.3) mg/dL Total Bilirubin 0.70 (0.1-1.2) mg/dL AST 94 H (5-40) units/L ALT 78 H (7-56) units/L Alkaline Phosphatase 132 H (35-129) units/L Troponin T (0.00-0.029) ng/mL Total Protein 7.0 (6.3-8.2) g/dL Albumin 4.0 (3.9-5) g/dL Albumin/Globulin Ratio 1.3 % Plasma/Serum Alcohol 0.15 H (0-0.07) % 01/03/ Range/Units 06:57 WBC (4.5-11.0) K/mm3 RBC (3.65-5.03) M/mm3 Hgb (11.8-15.2) gm/dl Hct (35.5-45.6) % MCV (84-94) fl MCH (28-32) pg MCHC (32-34) % RDW (13.2-15.2) % Plt Count (140-440) K/mm3 Lymph % (Auto) (13.4-35.0) % [place] % (Auto) (0.0-7.3) % Eos % (Auto) (0.0-4.3) % Baso % (Auto) (0.0-1.8) % Lymph # (Auto) (1.2-5.4) K/mm3 [place] # (Auto) (0.0-0.8) K/mm3 Eos # (Auto) (0.0-0.4) K/mm3 Baso # (Auto) (0.0-0.1) K/mm3 Seg Neutrophils % (40.0-70.0) % Seg Neutrophils # (1.8-7.7) K/mm3 Sodium (137-145) mmol/L Potassium (3.6-5.0) mmol/L Chloride (98-107) mmol/L Carbon Dioxide (22-30) mmol/L Anion Gap mmol/L BUN (9-20) mg/dL Creatinine (0.8-1.3) mg/dL Estimated GFR ml/min BUN/Creatinine Ratio % Glucose (75-100) mg/dL Calcium (8.4-10.2) mg/dL Magnesium 1.60 L (1.7-2.3) mg/dL Total Bilirubin (0.1-1.2) mg/dL AST (5-40) units/L ALT (7-56) units/L Alkaline Phosphatase (35-129) units/L Troponin T < 0.010 (0.00-0.029) ng/mL Total Protein (6.3-8.2) g/dL Albumin (3.9-5) g/dL Albumin/Globulin Ratio % Plasma/Serum Alcohol (0-0.07) % ED Medical Decision Making - Lab Data Result diagrams: 01/04/20 02:18 01/04/20 02:18 - EKG Data -: EKG Interpreted by Me EKG shows normal: sinus rhythm, axis, intervals, QRS complexes (Q waves to the septal leads), ST-T waves Rate: tachycardia (107 bpm) - EKG Data When compared to previous EKG there are: no significant change Interpretation: unchanged when compared t (01/2019) - Radiology Data Radiology results: image reviewed interpreted by me: Chest x-ray does not show any acute process. There are no pleural effusions, obvious pneumonia and there is no pneumothorax. No significant cardiomegaly. - Medical Decision Making This patient presents to the emergency department with complaint of having a seizure prior to arrival. The patient arrived overnight and my shift started at 6 AM, which is when I saw this patient. At the time my examination he is awake, alert, oriented and in no acute distress. He does not have any apparent focal, motor or sensory deficits. Patient's labs shows a blood alcohol level of 0.15, some mild transaminitis, and mild hypomagnesemia. The patient was given some IV fluid resuscitation including banana bag, magnesium replacement, and was given 1 dose of Ativan for his complaint of some anxiety and/or alcohol withdra wal symptoms. EKG did not have any morphology consistent with ST elevation myocardial infarction. His vital signs have been reassuring throughout his ED course including being afebrile. Overall the patient has been in the emergency department for over 16 hours and there has been no further seizure-like activity, hallucinations, signs of delirium tremens. The patient will be discharged home with some Librium to help with the alcohol withdrawal and avoid any further alcohol abuse. He has been given outpatient referrals for both primary care and mental health. He will return to the emergency department with any worsening of his symptoms or with any acute distress. Critical Care Time: No Critical care attestation.: If time is entered above; I have spent that time in minutes in the direct care of this critically ill patient, excluding procedure time. ED Disposition Clinical Impression: ETOH abuse, Hypomagnesemia Alcohol dependence Qualifiers: Substance use status: unspecified alcohol-induced disorder Qualified Code(s): F10.29 - Alcohol dependence with unspecified alcohol-induced disorder Alcohol withdrawal Qualifiers: Complication of substance-induced condition: uncomplicated Qualified Code(s): F10.230 - Alcohol dependence with withdrawal, uncomplicated Disposition: DC-01 TO HOME OR SELFCARE Is pt being admited?: No Condition: Stable Instructions: Abuse of Alcohol (ED), Alcohol Withdrawal (ED) Additional Instructions: Please follow-up with a primary care physician in the next few days. I have given you a referral for the [facility] to follow-up regarding your anxiety and for any other mental health needs. I have also given you multiple referrals for outpatient substance abuse programs. Please avoid any further alcohol abuse. I have given you a prescription for Librium to assist you with your alcohol withdrawals. Please do not drink any alcohol on this medication. Return to the emergency department with any worsening of your symptoms, any further seizure-like activity, new or concerning symptoms not addressed during this current emergency department visit, or with any acute distress. Prescriptions: chlordiazePOXIDE [Librium] 25 mg PO Q8H PRN #8 capsule PRN Reason: Alcohol Withdrawal Referrals: PRIMARY CARE [Primary Care Provider] - 2-3 Days [facility] [Outside] - 2-3 Days [facility] [Provider Group] - 2-3 Days Time of Disposition: 10:43
--- NOTE | 2020-01-04 06:58 | XRay Report ---
CHEST 1 VIEW 6:24 AM INDICATION / CLINICAL INFORMATION: Cough. COMPARISON: 02/19/19. FINDINGS: SUPPORT DEVICES: None. HEART / MEDIASTINUM: The heart size and pulmonary vasculature are normal. LUNGS / PLEURA: No significant pulmonary or pleural abnormality. No pneumothorax. ADDITIONAL FINDINGS: No significant additional findings. IMPRESSION: No acute abnormality or significant change. Signer Name: Luis Germain MD Signed: 01/04/2020 6:53 AM Workstation Name: [id number]
[2020-01-04] MEDS ORDERED: MAGNESIUM SULFATE 1 GM in SODIUM CHLORIDE 0.9% 50 ML IV ONE (08:15)
[2020-01-04] MEDS ORDERED: THIAMINE 100 MG, FOLIC ACID 1 MG, MULTIPLE VITAMIN INJ, ADULT 10 ML in SODIUM CHLORIDE ... IV ONE (08:30)
[2020-01-04] MEDS ORDERED: LORazepam 2 MG/ML VIAL ONE (08:52)
[2020-01-04] MEDS ORDERED: LORazepam 2 MG/ML VIAL IV ONE (08:53)
== END 2020-01-04 11:30 | disposition home or self-care (01) ==
LOC: ED 21:27
DX: E83.42 Hypomagnesemia (principal); F10.230 Alcohol dependence with withdrawal, uncomplicated; I10 Essential (primary) hypertension; F41.9 Anxiety disorder, unspecified; J45.909 Unspecified asthma, uncomplicated; Z79.899 Other long term (current) drug therapy; Z98.890 Other specified postprocedural states; Z88.6 Allergy status to analgesic agent
CPT/HCPCS: 36415; 71045; 80053; 83735; 84484; 85025; 93005; 96365; 96368; 96375; 99284; J2060; J3411; J3475; J7030; 80320; G0480

== ENCOUNTER 2020-02-11 17:58 | Emergency (ER) | payer SELFPAY ==
[2020-02-11 18:02] VITALS: BP 120/80
--- NOTE | 2020-02-11 19:40 | Event Note ---
ED Screening Note ED Screening Note: states he had a seizure and is now having neck pain states he is supposed to be taking dilantin states he has not taken his meds in a month This initial assessment/diagnostic orders/clinical plan/treatment(s) is/are subject to change based on patients health status, clinical progression and re-assessment by fellow clinical providers in the ED. Further treatment and workup at subsequent clinical providers discretion. Patient/guardian urged not to elope from the ED as their condition may be serious if not clinically assessed and managed. Initial orders include: labs, CT
[2020-02-11 20:40] LABS: Basophils # (Auto) 0.1 K/mm3 (0.0-0.1); Basophils % (Auto) 1.4 % (0.0-1.8); Eosinophils # (Auto) 0.1 K/mm3 (0.0-0.4); Eosinophils % (Auto) 1.2 % (0.0-4.3); Hematocrit 45.4 % (35.5-45.6); Hemoglobin 15.9 gm/dl (11.8-15.2); Lymphocytes # (Auto) 1.5 K/mm3 (1.2-5.4); Lymphocytes % (Auto) 22.2 % (13.4-35.0); Mean Corpuscular HGB Conc 35 % (32-34); Mean Corpuscular Volume 108 fl (84-94); Monocytes % (Auto) 14.7 % (0.0-7.3); Platelet Count 229 K/mm3 (140-440); Red Blood Count 4.19 M/mm3 (3.65-5.03); Red Cell Distribution Width 13.9 % (13.2-15.2)
[2020-02-11 20:58] LABS: Alanine Aminotransferase 43 units/L (7-56); Albumin 3.6 g/dL (3.9-5); Blood Urea Nitrogen 6 mg/dL (9-20); Calcium 9.1 mg/dL (8.4-10.2); Hemolysis Index 41
[2020-02-11 21:01] LABS: BUN/Creatinine Ratio 12
--- NOTE | 2020-02-11 22:02 | Cat Scan Report ---
. CT head/brain wo con INDICATION / CLINICAL INFORMATION: 64 years Male; Patient had a fall / seizure, now with head pain. TECHNIQUE: Routine CT head without contrast. All CT scans at this location are performed using CT dos e reduction for ALARA by means of automated exposure control. COMPARISON: None. FINDINGS: BRAIN / INTRACRANIAL CONTENTS: No acute hemorrhage, mass effect, midline shift, hydrocephalus, or acu te, large territorial infarct. Minimal cerebral and cerebellar atrophy. There are cerk-me-fxaevsgw areas of decreased attenuation in the white matter of the cerebral hemisph eres, as well as the gangliocapsular regions. These are nonspecific findings and may be related to mi croangiopathy (hypertension, diabetes, atherosclerosis), given the patient's age. It might be difficu lt to evaluate for small areas of ischemia without diffusion imaging by MRI. CRANIOCERVICAL JUNCTION: No significant abnormality. ORBITS: No significant abnormality of visualized orbits. SINUSES / MASTOIDS: There is a focal dehiscence of the lamina papyracea on the right-of no clinical s ignificance. ADDITIONAL FINDINGS: Small lipoma seen superficial left frontal bone-of no clinical significance. No significant atherosclerotic disease appreciated. IMPRESSION: 1. No focal mass, hemorrhage, hydrocephalus, or acute, large territorial infarct. Signer Name: Igor Fiore MD, III Signed: 02/11/2020 9:57 PM Workstation Name: [facility]BARRY ROADSkytreeATLANTICARE REG[facility]AL [email or web address]
--- NOTE | 2020-02-11 22:05 | Cat Scan Report ---
. CT cervical spine wo con INDICATION / CLINICAL INFORMATION: 64 years Male; Patient had a fall / seizure, now with neck pain. TECHNIQUE: Axial CT images of the cervical spine were obtained. Sagittal and coronal reformatted images were pr oduced. All CT scans at this location are performed using CT dose reduction for ALARA by means of aut omated exposure control. COMPARISON: None available. FINDINGS: POST-SURGICAL CHANGES: None. ALIGNMENT: Straightening of the cervical spine noted, which may be related to patient positioning. VERTEBRAE: No signs of fracture. Vertebral bodies are grossly normal in height throughout. There is moderate osseous foraminal narrowing on the right at C3-4 and C6-7 related uncinate hypertro phy. Similar findings seen on the left at C3-4, to a lesser degree. Mild to moderate, multilevel facet hypertrophy is seen. Most marked findings on the right at C4-5 and C5-6. There may be bony fusion of the C5-6 facet joint on the right and the left C2-3 facet joint. INTRAVERTEBRAL DISCS:Disc spaces are fairly well-maintained throughout without significant canal sten osis. PARASPINAL SOFT TISSUES: No significant abnormality. ADDITIONAL FINDINGS: Atherosclerotic disease suggested in the left carotid bifurcation region. IMPRESSION: 1. No signs of acute bony trauma to the cervical spine. Signer Name: Igor Fiore MD, III Signed: 02/11/2020 10:00 PM Workstation Name: [email or web address]
[2020-02-12] MEDS ORDERED: IBUPROFEN 800 MG TAB PO ONE (08:49)
--- NOTE | 2020-02-12 08:49 | Emergency Department Report ---
Chief Complaint: Neck Pain/Injury Stated Complaint: NECKP pAIN Time Seen by Provider: 02/11/20 19:38 - HPI History of Present Illness: Mr. Alonso is a 64-year-old male who comes to the emergency department last night with complaints of knee and hip pain. Patient reports a history of gout. Patient is homeless. He states that he sees Dr. Liao He reports taking Ativan and Motrin daily. I suspect that this is a psychosocial issue more so than a medical issue for the patient is ambulatory and in his usual state of health on exam in ACC approximately 13 hours after his ER arrival. In fact when I asked patient if he was having pain at the current time he says no he just needed somewhere to stay for the night. Patient denies any chest pain, shortness of breath, fever or chills. Patient is ambulatory, nontoxic and [id number] in ACC - ROS Review of Systems: Acute on chronic knee and hip-on exam in ACC patient denies No fall or trauma - Exam Vital Signs: Vital Signs 02/11/20 18:01 Temperature 98.5 F Pulse Rate 100 H Respiratory 16 Rate Blood Pressure 120/80 [Right] O2 Sat by Pulse 98 Oximetry Ambulatory and taking p.o. Heart rate 90 on provider exam in ACC. Patient asking for food tray. He is taking p.o. without difficulty. Physical Exam: Alert and oriented x4. Homeless. No focal deficit. Bilateral DP pulses +2. Full range of motion of all extremities. Ambulatory. S1-S2. Lungs clear to auscultation. Abdomen soft nontender MSE screening note: Focused history and physical exam performed. Due to findings the following was ordered: Labs were ordered by the triage notes. Noted by provider. LFTs with mild bump in AST to 58. T bili is 1.3. Sodium is 127. Patient is euvolemic. Patient does drink alcohol. Patient is known to us in the ER. EMR reviewed. Patient has no chest pain, shortness of breath or extremity edema. There is no JVD on exam. Creatinine normal on labs. Patient has no jaundice, altered mental status or abdominal pain or complaints. Labs 02/11/20 02/11/20 19:53 19:53 WBC 6.7 RBC 4.19 Hgb 15.9 H Hct 45.4 MCV 108 H MCH 38 H MCHC 35 H RDW 13.9 Plt Count 229 Lymph % (Auto) 22.2 [place] % (Auto) 14.7 H Eos % (Auto) 1.2 Baso % (Auto) 1.4 Lymph # (Auto) 1.5 [place] # (Auto) 1.0 H Eos # (Auto) 0.1 Baso # (Auto) 0.1 Seg Neutrophils % 60.5 Seg Neutrophils # 4.1 Sodium 127 L Potassium 3.7 Chloride 91.6 L Carbon Dioxide 22 Anion Gap 17 BUN 6 L Creatinine 0.5 L Estimated GFR > 60 BUN/Creatinine Ratio 12 Glucose 81 Calcium 9.1 Total Bilirubin 1.30 H AST 58 H ALT 43 Alkaline Phosphatase 111 Total Protein 7.0 Albumin 3.6 L Albumin/Globulin Ratio 1.1 Vital signs normal in the emergency room. Vital Signs 02/11/20 02/12/20 18:01 08:55 Temperature 98.5 F Pulse Rate 100 H Respiratory 16 20 Rate Blood Pressure 120/80 [Right] O2 Sat by Pulse 98 Oximetry Medicated with Motrin for pain. Patient being discharged home with discharge plan of care diet, activity and follow-up. He has been given a referral to our local primary care. He verbalizes understanding of discharge plan of care. ED Medical Decision Making - Lab Data Result diagrams: 02/11/20 19:53 02/11/20 19:53 - Medical Decision Making Lab Results 02/11/20 02/11/20 Range/Units 19:53 19:53 WBC 6.7 (4.5-11.0) K/mm3 RBC 4.19 (3.65-5.03) M/mm3 Hgb 15.9 H (11.8-15.2) gm/dl Hct 45.4 (35.5-45.6) % MCV 108 H (84-94) fl MCH 38 H (28-32) pg MCHC 35 H (32-34) % RDW 13.9 (13.2-15.2) % Plt Count 229 (140-440) K/mm3 Lymph % (Auto) 22.2 (13.4-35.0) % [place] % (Auto) 14.7 H (0.0-7.3) % Eos % (Auto) 1.2 (0.0-4.3) % Baso % (Auto) 1.4 (0.0-1.8) % Lymph # (Auto) 1.5 (1.2-5.4) K/mm3 [place] # (Auto) 1.0 H (0.0-0.8) K/mm3 Eos # (Auto) 0.1 (0.0-0.4) K/mm3 Baso # (Auto) 0.1 (0.0-0.1) K/mm3 Seg Neutrophils % 60.5 (40.0-70.0) % Seg Neutrophils # 4.1 (1.8-7.7) K/mm3 Sodium 127 L (137-145) mmol/L Potassium 3.7 (3.6-5.0) mmol/L Chloride 91.6 L (98-107) mmol/L Carbon Dioxide 22 (22-30) mmol/L Anion Gap 17 mmol/L BUN 6 L (9-20) mg/dL Creatinine 0.5 L (0.8-1.3) mg/dL Estimated GFR > 60 ml/min BUN/Creatinine Ratio 12 % Glucose 81 (75-100) mg/dL Calcium 9.1 (8.4-10.2) mg/dL Total Bilirubin 1.30 H (0.1-1.2) mg/dL AST 58 H (5-40) units/L ALT 43 (7-56) units/L Alkaline Phosphatase 111 (35-129) units/L Total Protein 7.0 (6.3-8.2) g/dL Albumin 3.6 L (3.9-5) g/dL Albumin/Globulin Ratio 1.1 % Vital Signs 02/11/20 02/12/20 18:01 08:55 Temperature 98.5 F Pulse Rate 100 H Respiratory 16 20 Rate Blood Pressure 120/80 [Right] O2 Sat by Pulse 98 Oximetry - Differential Diagnosis Acute on chronic pain, in a homeless patient presenting to the ER last [facility] ED Disposition for MSE Clinical Impression: Chronic pain, Homeless Disposition: MED SCREENING EXAM-LEFT Is pt being admited?: No Does the pt Need Aspirin: No Condition: Stable Instructions: Pain Medicine Instructions, [id number] Referrals: MARK OWUSUCONESTOGA MD BETH [Primary Care Provider] - 3-5 Days TANA DEL VALLE MD [Staff Physician] - 3-5 Days Time of Disposition: 08:49
== END 2020-02-12 08:58 | disposition left against medical advice (07) ==
LOC: ED 17:58
DX: M54.2 Cervicalgia (principal); M25.569 Pain in unspecified knee; M25.559 Pain in unspecified hip; Z53.21 Procedure and treatment not carried out due to patient leaving prior to being seen by health care provider
CPT/HCPCS: 36415; 70450; 72125; 80053; 85025

== ENCOUNTER 2020-09-07 03:04 | Emergency (ER) | payer SELFPAY ==
[2020-09-07 03:11] VITALS: BP 135/79
[2020-09-07] MEDS ORDERED: IBUPROFEN 600 MG TAB PO ONE (07:31)
--- NOTE | 2020-09-07 07:31 | Emergency Department Report ---
ED General Adult HPI - General Chief complaint: Abdominal Pain Stated complaint: SEIZURE/ELBOW PAIN Time Seen by Provider: 09/07/20 07:02 Source: patient, EMS Mode of arrival: Wheelchair Limitations: No Limitations - History of Present Illness Initial comments: 65-year-old male presents to the emergency room stating that he ran out of his seizure medication. Patient states is been off her for a few days. Reports he is on Dilantin and Keppra. Does not have a primary care provider. States he does not have money to purchase his psych meds. Patient also complains of right wrist. Onset/Timin -: days(s) Location: upper extremity (Right wrist) Consistency: intermittent Improves with: none Worsens with: none Associated Symptoms: other (Seizure) Treatments Prior to Arrival: none - Related Data Previous Rx's Medication Instructions Recorded Last Taken Type Ibuprofen [Motrin 600 MG tab] 600 mg PO Q8H PRN #10 tablet 04/04/19 Unknown Rx Multivitamin Tab [Multiple Vitamin 1 each PO DAILY #30 tablet 04/04/19 Unknown Rx TAB (Theragran)] amLODIPine 5 mg PO QDAY #30 tablet 04/04/19 Unknown Rx atenoloL [Tenormin] 50 mg PO QDAY #30 tablet 04/04/19 Unknown Rx chlordiazePOXIDE [Librium] 25 mg PO Q8H #7 capsule 04/04/19 Unknown Rx chlordiazePOXIDE [Librium] 25 mg PO Q8H PRN #8 capsule 01/04/20 Unknown Rx Phenytoin [Dilantin] 100 mg PO Q8HR #90 capsule 09/07/20 Unknown Rx levETIRAcetam [Keppra TAB] 500 mg PO BID #60 tablet 09/07/20 Unknown Rx Allergies Allergy/AdvReac Type Severity Reaction Status Date / Time olanzapine [From Zyprexa] Allergy Nausea Verified 02/15/19 18:02 ED Review of Systems ROS: Stated complaint: SEIZURE/ELBOW PAIN Other details as noted in HPI Comment: All other systems reviewed and negative ED Past Medical Hx - Past Medical History Hx Hypertension: Yes Hx Congestive Heart Failure: No Hx Diabetes: No Hx Seizures: Yes Hx Psychiatric Treatment: Yes (anxiety psychosis) Hx Asthma: Yes Hx COPD: No Additional medical history: Pancreatisis. legally blind - Surgical History Additional Surgical History: R knee surgery, left lung injury HIP SURGERY - Social History Smoking Status: Current Every Day Smoker Substance Use Type: Alcohol - Medications Home Medications: Home Medications Medication Instructions Recorded Confirmed Last Taken Type Ibuprofen [Motrin 600 MG tab] 600 mg PO Q8H PRN #10 tablet 04/04/19 05/03/19 Unknown Rx Multivitamin Tab [Multiple Vitamin 1 each PO DAILY #30 tablet 04/04/19 05/03/19 Unknown Rx TAB (Theragran)] amLODIPine 5 mg PO QDAY #30 tablet 04/04/19 05/03/19 Unknown Rx atenoloL [Tenormin] 50 mg PO QDAY #30 tablet 04/04/19 05/03/19 Unknown Rx chlordiazePOXIDE [Librium] 25 mg PO Q8H #7 capsule 04/04/19 05/03/19 Unknown Rx chlordiazePOXIDE [Librium] 25 mg PO Q8H PRN #8 capsule 01/04/20 Unknown Rx Phenytoin [Dilantin] 100 mg PO Q8HR #90 capsule 09/07/20 Unknown Rx levETIRAcetam [Keppra TAB] 500 mg PO BID #60 tablet 09/07/20 Unknown Rx ED Physical Exam - General Limitations: No Limitations General appearance: alert, in no apparent distress, other (Disheveled) - Head Head exam: Present: atraumatic - Eye Eye exam: Present: normal appearance - ENT ENT exam: Present: mucous membranes moist - Neck Neck exam: Present: normal inspection, full ROM - Respiratory Respiratory exam: Absent: accessory muscle use - Cardiovascular Cardiovascular Exam: Present: regular rate - Expanded Upper Extremity Exam Right Shoulder Exam: Present: normal inspection, full ROM Upper Arm exam: Present: normal inspection, full ROM Elbow exam: Present: full ROM Forearm Wrist exam: Present: full ROM Hand Wrist exam: Present: full ROM - Back Exam Back exam: Present: normal inspection, full ROM - Neurological Exam Neurological exam: Present: alert, oriented X3 - Psychiatric Psychiatric exam: Present: depressed, flat affect - Skin Skin exam: Present: warm, dry, intact, normal color. Absent: rash ED Course Vital Signs 09/07/20 03:10 Temperature 98.4 F Pulse Rate 17 L Respiratory 18 Rate Blood Pressure 135/79 [Left] O2 Sat by Pulse 99 Oximetry ED Medical Decision Making - Medical Decision Making 65-year-old male presents to the emergency room stating that he ran out of his seizure medication. Patient states is been off her for a few days. Reports he is on Dilantin and Keppra. Does not have a primary care provider. States he does not have money to purchase his psych meds. Patient also complains of right wrist. Critical care attestation.: If time is entered above; I have spent that time in minutes in the direct care of this critically ill patient, excluding procedure time. ED Disposition Clinical Impression: Seizures Disposition: TO HOME OR SELFCARE Is pt being admited?: No Does the pt Need Aspirin: No Condition: Stable Instructions: Seizure, Adult, [id number] Additional Instructions: Please take your seizure medications. Ibuprofen for wrist contusion follow-up with your neurologist. Prescriptions: Phenytoin [Dilantin] 100 mg PO Q8HR #90 capsule levETIRAcetam [Keppra TAB] 500 mg PO BID #60 tablet Referrals: PRIMARY CARE, [Primary Care Provider] - 3-5 Days [facility] [Provider Group] - 3-5 Days Time of Disposition: 07:32
== END 2020-09-07 08:04 | disposition home or self-care (01) ==
LOC: ED 03:04
DX: R56.9 Unspecified convulsions (principal); M25.531 Pain in right wrist; I10 Essential (primary) hypertension; F41.9 Anxiety disorder, unspecified; J45.909 Unspecified asthma, uncomplicated; F17.200 Nicotine dependence, unspecified, uncomplicated; Z72.89 Other problems related to lifestyle; Z88.8 Allergy status to other drugs, medicaments and biological substances; Z79.899 Other long term (current) drug therapy
CPT/HCPCS: 99283

== ENCOUNTER 2020-09-15 17:32 | Emergency (ER) | payer OTHER, SELFPAY ==
--- NOTE | 2020-09-15 18:19 | Emergency Department Report ---
HPI - HPI HPI: Room 12 The patient is a 65-year-old male present with a chief complaint of auditory hallucinations. The patient states for the past several weeks he has had auditory hallucinations. When asked what the voices are staying the patient replies "I do not know I just need to go to [facility]." Patient also admits to visual hallucinations stating he is seeing "people's faces." Patient denies suicidal or homicidal ideation. Patient states he has not been taking any of his medications. The patient is a poor historian ED Past Medical Hx - Past Medical History Hx Hypertension: Yes Hx Seizures: Yes Hx Psychiatric Treatment: Yes (anxiety psychosis) Hx Asthma: Yes Additional medical history: Pancreatitis. legally blind - Surgical History Additional Surgical History: R knee surgery, left lung injury HIP SURGERY - Family History Family history: no significant - Social History Smoking Status: Former Smoker Substance Use Type: None (Denies illicit drugs), Alcohol (Occasional) - Medications Home Medications: Home Medications Medication Instructions Recorded Confirmed Last Taken Type Ibuprofen [Motrin 600 MG tab] 600 mg PO Q8H PRN #10 tablet 04/04/19 05/03/19 Unknown Rx Multivitamin Tab [Multiple Vitamin 1 each PO DAILY #30 tablet 04/04/19 05/03/19 Unknown Rx TAB (Theragran)] amLODIPine 5 mg PO QDAY #30 tablet 04/04/19 05/03/19 Unknown Rx atenoloL [Tenormin] 50 mg PO QDAY #30 tablet 04/04/19 05/03/19 Unknown Rx chlordiazePOXIDE [Librium] 25 mg PO Q8H #7 capsule 04/04/19 05/03/19 Unknown Rx chlordiazePOXIDE [Librium] 25 mg PO Q8H PRN #8 capsule 01/04/20 Unknown Rx Phenytoin [Dilantin] 100 mg PO Q8HR #90 capsule 09/07/20 Unknown Rx levETIRAcetam [Keppra TAB] 500 mg PO BID #60 tablet 09/07/20 Unknown Rx ED Review of Systems ROS: Stated complaint: MH EVAL Other details as noted in HPI Constitutional: no symptoms reported Eyes: denies: eye pain ENT: denies: throat pain Respiratory: no symptoms reported Cardiovascular: denies: chest pain Endocrine: no symptoms reported Gastrointestinal: denies: abdominal pain Genitourinary: denies: dysuria Musculoskeletal: denies: back pain Skin: denies: lesions Neurological: denies: headache Psychiatric: auditory hallucinations, visual hallucinations. denies: homicidal thoughts, suicidal thoughts Physical Exam - Physical Exam Vital Signs: Vital Signs 09/15/20 20:06 Temperature 97.8 F Pulse Rate 83 Respiratory 18 Rate Blood Pressure 144/77 [Left] O2 Sat by Pulse 97 Oximetry Physical Exam: GENERAL: The patient is well-developed well-nourished male sitting in chair not appearing to be in acute distress. [] HEENT: Normocephalic. Atraumatic. Extraocular motions are intact. Patient has moist mucous membranes. NECK: Supple. Trachea midline CHEST/LUNGS: Clear to auscultation. There is no respiratory distress noted. HEART/CARDIOVASCULAR: Regular. There is no tachycardia. There is no gallop rub or murmur. ABDOMEN: Abdomen is soft, nontender. Patient has normal bowel sounds. There is no abdominal distention. SKIN: There is no rash. There is no edema. There is no diaphoresis. NEURO: The patient is awake, alert, and oriented. The patient is cooperative. The patient has no focal neurologic deficits. The patient has normal speech and gait but has to hold onto the railing secondary to legal blindness. MUSCULOSKELETAL: There is no evidence of acute injury. ED Medical Decision Making - Lab Data Result diagrams: 09/15/20 18:38 09/15/20 18:38 Laboratory Tests 09/15/20 09/15/20 09/15/20 18:11 18:11 18:38 WBC RBC Hgb Hct MCV MCH MCHC RDW Plt Count Lymph % (Auto) [place] % (Auto) Eos % (Auto) Baso % (Auto) Lymph # (Auto) [place] # (Auto) Eos # (Auto) Baso # (Auto) Seg Neutrophils % Seg Neutrophils # Sodium Potassium Chloride Carbon Dioxide Anion Gap BUN Creatinine Estimated GFR BUN/Creatinine Ratio Glucose Calcium Urine Color Yellow Urine Turbidity Clear Urine pH 5.0 Ur Specific Ruth 1.008 Urine Protein <15 mg/dl Urine Glucose (UA) Neg Urine Ketones Neg Urine Blood Neg Urine Nitrite Neg Urine Bilirubin Neg Urine Urobilinogen < 2.0 Ur Leukocyte Esterase Tr Urine WBC (Auto) 4.0 Urine RBC (Auto) 1.0 U Epithel Cells (Auto) < 1.0 Urine Bacteria (Auto) 1+ Urine Mucus Few Salicylates < 0.3 L Urine Opiates Screen Presumptive negative Urine Methadone Screen Presumptive negative Acetaminophen Ur Barbiturates Screen Presumptive negative Phenytoin 0.8 L Ur Phencyclidine Scrn Presumptive negative Ur Amphetamines Screen Presumptive negative U Benzodiazepines Scrn Presumptive negative Urine Cocaine Screen Presumptive negative U Marijuana (THC) Screen Presumptive negative Drugs of Abuse Note Disclamer Plasma/Serum Alcohol 09/15/20 09/15/20 09/15/20 18:38 18:38 18:38 WBC RBC Hgb Hct MCV MCH MCHC RDW Plt Count Lymph % (Auto) [place] % (Auto) Eos % (Auto) Baso % (Auto) Lymph # (Auto) [place] # (Auto) Eos # (Auto) Baso # (Auto) Seg Neutrophils % Seg Neutrophils # Sodium 135 L Potassium 4.8 Chloride 100.5 Carbon Dioxide 20 L Anion Gap 19 BUN 7 L Creatinine 0.8 Estimated GFR > 60 BUN/Creatinine Ratio 9 Glucose 88 Calcium 8.9 Urine Color Urine Turbidity Urine pH Ur Specific Ruth Urine Protein Urine Glucose (UA) Urine Ketones Urine Blood Urine Nitrite Urine Bilirubin Urine Urobilinogen Ur Leukocyte Esterase Urine WBC (Auto) Urine RBC (Auto) U Epithel Cells (Auto) Urine Bacteria (Auto) Urine Mucus Salicylates Urine Opiates Screen Urine Methadone Screen Acetaminophen 5.0 L Ur Barbiturates Screen Phenytoin Ur Phencyclidine Scrn Ur Amphetamines Screen U Benzodiazepines Scrn Urine Cocaine Screen U Marijuana (THC) Screen Drugs of Abuse Note Plasma/Serum Alcohol 0.18 H 09/15/20 18:38 WBC 5.9 RBC 4.60 Hgb 16.1 H Hct 45.3 MCV 99 H MCH 35 H MCHC 36 H RDW 16.0 H Plt Count 237 Lymph % (Auto) 25.8 [place] % (Auto) 11.6 H Eos % (Auto) 1.2 Baso % (Auto) 1.0 Lymph # (Auto) 1.5 [place] # (Auto) 0.7 Eos # (Auto) 0.1 Baso # (Auto) 0.1 Seg Neutrophils % 60.4 Seg Neutrophils # 3.5 Sodium Potassium Chloride Carbon Dioxide Anion Gap BUN Creatinine Estimated GFR BUN/Creatinine Ratio Glucose Calcium Urine Color Urine Turbidity Urine pH Ur Specific Ruth Urine Protein Urine Glucose (UA) Urine Ketones Urine Blood Urine Nitrite Urine Bilirubin Urine Urobilinogen Ur Leukocyte Esterase Urine WBC (Auto) Urine RBC (Auto) U Epithel Cells (Auto) Urine Bacteria (Auto) Urine Mucus Salicylates Urine Opiates Screen Urine Methadone Screen Acetaminophen Ur Barbiturates Screen Phenytoin Ur Phencyclidine Scrn Ur Amphetamines Screen U Benzodiazepines Scrn Urine Cocaine Screen U Marijuana (THC) Screen Drugs of Abuse Note Plasma/Serum Alcohol - Differential Diagnosis Hallucinations Critical care attestation.: If time is entered above; I have spent that time in minutes in the direct care of this critically ill patient, excluding procedure time. ED Disposition Clinical Impression: Auditory hallucinations, Visual hallucinations Disposition: [id number] PSY HOSP/PSY UNIT Is pt being admited?: No Does the pt Need Aspirin: No Condition: Stable Time of Disposition: 21:33 (Awaiting acceptance)
[2020-09-15 18:31] LABS: Bacteria,Urine 1+ /HPF (Negative); Bilirubin,Urine NEG (Negative); Blood,Urine NEG (Negative); Color,Urine Yellow (Yellow); Mucus,Urine FEW /HPF; Protein,Urine <15 mg/dL mg/dL (Negative); Urobilinogen,Urine < 2.0 mg/dL (<2.0)
[2020-09-15 18:37] LABS: Amphetamine Screen,Urine PRESUMPTIVE NEGATIVE; Benzodiazepines Screen,Urine PRESUMPTIVE NEGATIVE; Cannabinoid Screen,Urine PRESUMPTIVE NEGATIVE; Cocaine Screen,Urine PRESUMPTIVE NEGATIVE; Methadone Screen,Urine PRESUMPTIVE NEGATIVE; Opiate Screen,Urine PRESUMPTIVE NEGATIVE
[2020-09-15 18:49] LABS: Basophils # (Auto) 0.1 K/mm3 (0.0-0.1); Eosinophils # (Auto) 0.1 K/mm3 (0.0-0.4); Eosinophils % (Auto) 1.2 % (0.0-4.3); Lymphocytes # (Auto) 1.5 K/mm3 (1.2-5.4); Lymphocytes % (Auto) 25.8 % (13.4-35.0); Mean Corpuscular HGB Conc 36 % (32-34); Mean Corpuscular Volume 99 fl (84-94); Monocytes # (Auto) 0.7 K/mm3 (0.0-0.8); Monocytes % (Auto) 11.6 % (0.0-7.3); Platelet Count 237 K/mm3 (140-440)
[2020-09-15 18:51] LABS: Hematocrit 45.3 % (35.5-45.6); Hemoglobin 16.1 gm/dl (11.8-15.2)
[2020-09-15 19:31] LABS: BUN/Creatinine Ratio 9; Blood Urea Nitrogen 7 mg/dL (9-20); Calcium 8.9 mg/dL (8.4-10.2); Hemolysis Index 72
[2020-09-15] MEDS ORDERED: LORazepam 2 MG/ML VIAL IV PRN ×3 (19:34)
[2020-09-15] MEDS: levETIRAcetam 500 MG TAB PO SCH (22:44)
--- NOTE | 2020-09-16 09:36 | Consultation ---
History of Present Illness - Reason for Consult Consult date: 09/16/20 Reason for consult: Mental Health Evaluation - History of Present Psychiatric Illness Per Ed Note: The patient is a 65-year-old male present with a chief complaint of auditory hallucinations. The patient states for the past several weeks he has had auditory hallucinations. When asked what the voices are staying the patient replies "I do not know I just need to go to [facility]." Patient also admits to visual hallucinations stating he is seeing "people's faces." Patient denies suicidal or homicidal ideation. Patient states he has not been taking any of his medications. The patient is a poor historian. Mayank garcia is a 65 year old male with a history of Schizophrenia, Anxiety and Alcohol use disorder who presents to the ED for auditory hallucinations. In my interview with the patient, he reports hearing voices however, he is unable to state what the voices are saying " just voices, I don't know what they are saying." He states voices are not commanding. He reports having difficulty with sleep stating " I can't sleep, I get only a couple of hours at night." The patient endorses anxiety rating as 8/10 in a scale of 1-10. He denies any current suicidal/homicidal ideation and denies visual hallucinations. PAST PSYCHIATRIC HISTORY: Diagnoses: Schizophrenia, and Alcohol use Disorder Suicide attempts or Self-harm behavior: Denies Prior psychiatric hospitalizations: Yes Substance Abuse history: alcohol Previous psychiatric medications tried: Ativan, Depakote Outpatient treatment: Denies PAST MEDICAL HISTORY: None reported or document Family Psychiatric History: None reported or documented SOCIAL HISTORY Marital Status: single Living Arrangements: Homeless Employment Status: Unemployed Access to guns/weapons: Denies Education: 10th grade History of Abuse: Denies Legal History: unknown REVIEW OF SYSTEMS Constitutional: Negative for weight loss ENT: Negative for stridor Respiratory: Negative for cough or hemoptysis All other systems reviewed and are negative MENTAL STATUS EXAMINATION General Appearance and Behavior: Age appropriate, wearing appropriate clothes, cooperative, polite with questioning, fair eye contact, calm Cooperation: cooperative Psychomotor Behavior: Psychomotor normal Mood: "anxious" Affect and affective range: congruent with stated mood Thought Process: goal directed Thought Content: Denies SI Speech: Normal volume, Regular rate and rhythm Suicidal Ideation: Denies Homicidal Ideation: Denies hallucination: Denies Delusions: None elicited Impulse Control: Intact Insight and Judgment: Limited Memory: Intact Attention:Distractible Orientation: Alert and oriented Diagnoses: (1)Schizophrenia- F20.9 (2)Insomnia- G47.00 (3)Anxiety Disorder, unspecified- F41.1 Treatment Plan Start Abilify 2 mg po Daily Start Vistaril 25mg po BID Start Trazodone 50mg po QHS PSYCHOTHERAPY: Supportive psychotherapy provided MEDICAL: Per primary team DELIRIUM PRECAUTIONS: Please re-orient patient frequently, keep lights on during the day, and minimize benzodiazepines and opiates as these medications could worsen patient's confusion. LINE COOK: Per medical team DISPOSITION: Recommend acute psychiatric inpatient treatment Will follow. Please contact with any questions and/or concerns. Thank you for the consult. Case staffed with Dr. Patel Medications and Allergies Allergies Allergy/AdvReac Type Severity Reaction Status Date / Time olanzapine [From Zyprexa] Allergy Nausea Verified 02/15/19 18:02 Home Medications Medication Instructions Recorded Confirmed Last Taken Type Ibuprofen [Motrin 600 MG tab] 600 mg PO Q8H PRN #10 tablet 04/04/19 05/03/19 Unknown Rx Multivitamin Tab [Multiple Vitamin 1 each PO DAILY #30 tablet 04/04/19 05/03/19 Unknown Rx TAB (Theragran)] amLODIPine 5 mg PO QDAY #30 tablet 04/04/19 05/03/19 Unknown Rx atenoloL [Tenormin] 50 mg PO QDAY #30 tablet 04/04/19 05/03/19 Unknown Rx chlordiazePOXIDE [Librium] 25 mg PO Q8H #7 capsule 04/04/19 05/03/19 Unknown Rx chlordiazePOXIDE [Librium] 25 mg PO Q8H PRN #8 capsule 01/04/20 Unknown Rx Phenytoin [Dilantin] 100 mg PO Q8HR #90 capsule 09/07/20 Unknown Rx levETIRAcetam [Keppra TAB] 500 mg PO BID #60 tablet 09/07/20 Unknown Rx Active Meds: Active Medications Levetiracetam (Levetiracetam 500 Mg Tab) 500 mg PO BID DG Last Admin: 09/15/20 22:44 Dose: 500 mg Documented by: Lorazepam (Lorazepam 2 Mg/Ml Vial) 2 mg IV Q1HR PRN PRN Reason: CIWA-Ar 8-15 Lorazepam (Lorazepam 2 Mg/Ml Vial) 4 mg IV Q1HR PRN PRN Reason: CIWA-Ar 16-25 Lorazepam (Lorazepam 2 Mg/Ml Vial) 4 mg IV Q15MIN PRN PRN Reason: CIWA-Ar >25 Mental Status Exam - Vital signs Last Vital Signs Temp 97.6 F 09/16/20 07:50 Pulse 117 H 09/16/20 09:25 Resp 20 09/16/20 07:50 BP 116/77 09/16/20 07:50 Pulse Ox 96 09/16/20 07:50 Results Result Diagrams: 09/15/20 18:38 09/15/20 18:38 Abnormal lab results 09/15/20 09/15/20 09/15/20 Range/Units 18:38 18:38 18:38 Hgb (11.8-15.2) gm/dl MCV (84-94) fl MCH (28-32) pg MCHC (32-34) % RDW (13.2-15.2) % [place] % (Auto) (0.0-7.3) % Sodium 135 L (137-145) mmol/L Carbon Dioxide 20 L (22-30) mmol/L BUN 7 L (9-20) mg/dL Salicylates < 0.3 L (2.8-20.0) mg/dL Acetaminophen 5.0 L (10.0-30.0) ug/mL Phenytoin 0.8 L (10.0-20.0) ug/mL Plasma/Serum Alcohol (0-0.07) % 09/15/20 09/15/20 Range/Units 18:38 18:38 Hgb 16.1 H (11.8-15.2) gm/dl MCV 99 H (84-94) fl MCH 35 H (28-32) pg MCHC 36 H (32-34) % RDW 16.0 H (13.2-15.2) % [place] % (Auto) 11.6 H (0.0-7.3) % Sodium (137-145) mmol/L Carbon Dioxide (22-30) mmol/L BUN (9-20) mg/dL Salicylates (2.8-20.0) mg/dL Acetaminophen (10.0-30.0) ug/mL Phenytoin (10.0-20.0) ug/mL Plasma/Serum Alcohol 0.18 H (0-0.07) % All other labs normal.
[2020-09-16] MEDS ORDERED: chlordiazePOXIDE 25 MG CAP PO PRN ×2 (10:11)
[2020-09-16] MEDS ORDERED: LORazepam 2 MG/ML VIAL IV PRN (10:11)
--- NOTE | 2020-09-16 10:23 | Emergency Department Report ---
Blank Doc - Documentation Documentation: Overnight the patient has been tachycardic. CIWA protocol has been discussed with the nurse and orders put in for medications. Besides continued tachycardia there are no new events overnight.
[2020-09-16] MEDS: levETIRAcetam 500 MG TAB PO SCH ×2 (10:24→21:37)
[2020-09-16] MEDS: hydrOXYzine PAMOATE 25 MG CAP PO SCH ×2 (10:24→21:37)
[2020-09-16] MEDS: ARIPiprazole 5 MG TAB PO SCH (10:24)
[2020-09-16] MEDS: amLODIPine 5 MG TAB PO SCH (11:44)
[2020-09-17 07:59] VITALS: BP 119/94
[2020-09-17] MEDS ORDERED: atenoloL 50 MG TAB PO SCH (10:00)
--- NOTE | 2020-09-17 10:26 | Event Note ---
Date: 09/17/20 65-year-old male with history of schizophrenia who presents with auditory hallucinations. He was seen by my colleague and was medically cleared for psychiatric evaluation. He was seen by the psychiatry/mental health team who recommended further inpatient psychiatric treatment. Vital signs are stable. There were no acute events overnight. He is currently awaiting psychiatric placement.
[2020-09-17] MEDS: amLODIPine 5 MG TAB PO SCH (11:41)
[2020-09-17] MEDS: levETIRAcetam 500 MG TAB PO SCH (11:41)
[2020-09-17] MEDS: ARIPiprazole 5 MG TAB PO SCH (11:41)
[2020-09-17] MEDS: hydrOXYzine PAMOATE 25 MG CAP PO SCH (11:41)
--- NOTE | 2020-09-17 11:44 | Progress Note ---
Subjective - Reason for Consult Consult date: 09/17/20 Reason for consult: auditory hallucinations - Chief Complaint Chief complaint: The patient was seen resting quietly. He continues to endorse auditory hallucinations. He reports sleep and appetite as good. The patient denies any suicidal ideation. REVIEW OF SYSTEMS Constitutional: Negative for weight loss ENT: Negative for stridor Respiratory: Negative for cough or hemoptysis All other systems reviewed and are negative MENTAL STATUS EXAMINATION General Appearance and Behavior: Age appropriate, wearing appropriate clothes, cooperative, polite with questioning, fair eye contact, calm Cooperation: cooperative Psychomotor Behavior: Psychomotor normal Mood: "Ok" Affect and affective range: congruent with stated mood Thought Process: goal directed Thought Content: Denies SI Speech: Normal volume, Regular rate and rhythm Suicidal Ideation: Denies Homicidal Ideation: Denies hallucination: Denies Delusions: None elicited Impulse Control: Intact Insight and Judgment: Limited Memory: Intact Attention:Distractible Orientation: Alert and oriented Diagnoses: (1)Schizophrenia- F20.9 (2)Insomnia- G47.00 (3)Anxiety Disorder, unspecified- F41.1 Treatment Plan Continue Abilify 2 mg po Daily Continue Vistaril 25mg po BID Continue Trazodone 50mg po QHS PSYCHOTHERAPY: Supportive psychotherapy provided MEDICAL: Per primary team DELIRIUM PRECAUTIONS: Please re-orient patient frequently, keep lights on during the day, and minimize benzodiazepines and opiates as these medications could worsen patient's confusion. 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 Please contact with any questions and/or concerns. Thank you for the consult. Case staffed with Dr. Patel Mental Status Exam - Vital signs Last Vital Signs Temp 97.5 F L 09/17/20 07:58 Pulse 89 09/17/20 07:58 Resp 16 09/17/20 07:58 BP 119/94 09/17/20 07:58 Pulse Ox 96 09/17/20 07:58
== END 2020-09-17 18:00 ==
LOC: EEVIPCON 17:32 → ED 17:32
DX: R44.0 Auditory hallucinations (principal); Z20.822 Contact with and (suspected) exposure to COVID-19; R44.1 Visual hallucinations; I10 Essential (primary) hypertension; J45.909 Unspecified asthma, uncomplicated; Z86.69 Personal history of other diseases of the nervous system and sense organs; Z87.891 Personal history of nicotine dependence
CPT/HCPCS: 36415; 80048; 80185; 80307; 81001; 85025; 96374; 96376; 99285; J2060; Q0177; U0003; 80320; G0480

== ENCOUNTER 2020-10-18 14:55 | Emergency (ER) | payer SELFPAY ==
[2020-10-18 20:21] VITALS: BP 156/94
== END 2020-10-18 21:00 | disposition home or self-care (01) ==
LOC: ED 14:55
DX: G40.909 Epilepsy, unspecified, not intractable, without status epilepticus (principal); F10.239 Alcohol dependence with withdrawal, unspecified; R11.0 Nausea; F41.9 Anxiety disorder, unspecified; I10 Essential (primary) hypertension; J45.901 Unspecified asthma with (acute) exacerbation; Z87.891 Personal history of nicotine dependence; Z88.8 Allergy status to other drugs, medicaments and biological substances; Z79.899 Other long term (current) drug therapy; Z98.890 Other specified postprocedural states
CPT/HCPCS: 36415; 80053; 85025; 96360; 96372; 99283; J2060; J2405; J7030

== ENCOUNTER 2020-10-19 21:15 | Emergency (ER) | payer OTHER ==
[2020-10-20 08:49] VITALS: BP 127/87
[2020-10-20 10:02] LABS: Basophils # (Auto) 0.1 K/mm3 (0.0-0.1); Eosinophils # (Auto) 0.2 K/mm3 (0.0-0.4); Eosinophils % (Auto) 2.2 % (0.0-4.3); Hemoglobin 17.6 gm/dl (11.8-15.2); Lymphocytes # (Auto) 1.9 K/mm3 (1.2-5.4); Lymphocytes % (Auto) 27.1 % (13.4-35.0); Mean Corpuscular HGB Conc 35 % (32-34); Mean Corpuscular Volume 104 fl (84-94); Monocytes # (Auto) 0.7 K/mm3 (0.0-0.8); Monocytes % (Auto) 10.4 % (0.0-7.3); Platelet Count 159 K/mm3 (140-440); Red Blood Count 4.83 M/mm3 (3.65-5.03)
[2020-10-20 10:05] LABS: Red Cell Distribution Width 21.6 % (13.2-15.2)
[2020-10-20 10:06] LABS: Basophils % (Auto) 0.9 % (0.0-1.8)
[2020-10-20 10:13] LABS: Alanine Aminotransferase 26 units/L (7-56); Albumin 3.9 g/dL (3.9-5); Blood Urea Nitrogen 12 mg/dL (9-20); Calcium 9.1 mg/dL (8.4-10.2); Hemolysis Index 29
[2020-10-20 10:36] LABS: BUN/Creatinine Ratio 17
[2020-10-20] MEDS ORDERED: ONDANSETRON 4 MG ODT TAB PO ONE (10:46)
[2020-10-20] MEDS ORDERED: LORazepam 2 MG/ML VIAL IM STA (10:46)
--- NOTE | 2020-10-20 10:51 | Emergency Department Report ---
ED N/V/D HPI - General Chief complaint: Nausea/Vomiting/Diarrhea Stated complaint: GOUT PUI?: No Time Seen by Provider: 10/20/20 10:44 Source: patient Mode of arrival: Ambulatory Limitations: No Limitations - History of Present Illness Initial comments: Chief complaint: "I need Ativan. I lost my prescription. Also I am nauseous." HPI: This is a 65-year-old male with history of alcohol dependence, seizure disorder who presents with "anxiety" and nausea. Denies suicidal homicidal ideation. He recently was evaluated at [facility]. He stated that he lost his prescription for Ativan he denies any pain. He denies headache, chest pain,. MD complaint: nausea, vomiting -: Gradual, days(s) (1 day of nausea) Description of Vomiting: food contents Associated Abdominal Pain: No Radiation: none Severity: mild Consistency: constant Improves with: none Worsens with: none Context: alcohol abuse Associated Symptoms: denies other symptoms - Related Data Previous Rx's Medication Instructions Recorded Last Taken Type Ibuprofen [Motrin 600 MG tab] 600 mg PO Q8H PRN #10 tablet 04/04/19 Unknown Rx Multivitamin Tab [Multiple Vitamin 1 each PO DAILY #30 tablet 04/04/19 Unknown Rx TAB (Theragran)] amLODIPine 5 mg PO QDAY #30 tablet 04/04/19 Unknown Rx atenoloL [Tenormin] 50 mg PO QDAY #30 tablet 04/04/19 Unknown Rx chlordiazePOXIDE [Librium] 25 mg PO Q8H #7 capsule 04/04/19 Unknown Rx chlordiazePOXIDE [Librium] 25 mg PO Q8H PRN #8 capsule 01/04/20 Unknown Rx Phenytoin [Dilantin] 100 mg PO Q8HR #90 capsule 09/07/20 Unknown Rx levETIRAcetam [Keppra TAB] 500 mg PO BID #60 tablet 09/07/20 Unknown Rx levETIRAcetam [Keppra TAB] 500 mg PO BID #60 tablet 10/18/20 Unknown Rx Promethazine [Phenergan] 25 mg PO Q6HR PRN #10 tab 10/20/20 Unknown Rx Allergies Allergy/AdvReac Type Severity Reaction Status Date / Time olanzapine [From Zyprexa] Allergy Nausea Verified 02/15/19 18:02 ED Review of Systems ROS: Stated complaint: GOUT Other details as noted in HPI Comment: All other systems reviewed and negative Constitutional: denies: fever, malaise Respiratory: denies: cough, shortness of breath Gastrointestinal: nausea, vomiting. denies: abdominal pain ED Past Medical Hx - Past Medical History Previous Medical History?: Yes Hx Hypertension: Yes Hx Congestive Heart Failure: No Hx Diabetes: No Hx Seizures: Yes Hx Psychiatric Treatment: Yes (anxiety psychosis) Hx Asthma: Yes Hx COPD: No Additional medical history: Pancreatitis. legally blind - Surgical History Past Surgical History?: Yes Additional Surgical History: R knee surgery, left lung injury HIP SURGERY - Social History Smoking Status: Former Smoker Substance Use Type: Alcohol (Occasional) - Medications Home Medications: Home Medications Medication Instructions Recorded Confirmed Last Taken Type Ibuprofen [Motrin 600 MG tab] 600 mg PO Q8H PRN #10 tablet 04/04/19 05/03/19 Unknown Rx Multivitamin Tab [Multiple Vitamin 1 each PO DAILY #30 tablet 04/04/19 05/03/19 Unknown Rx TAB (Theragran)] amLODIPine 5 mg PO QDAY #30 tablet 04/04/19 05/03/19 Unknown Rx atenoloL [Tenormin] 50 mg PO QDAY #30 tablet 04/04/19 05/03/19 Unknown Rx chlordiazePOXIDE [Librium] 25 mg PO Q8H #7 capsule 04/04/19 05/03/19 Unknown Rx chlordiazePOXIDE [Librium] 25 mg PO Q8H PRN #8 capsule 01/04/20 Unknown Rx Phenytoin [Dilantin] 100 mg PO Q8HR #90 capsule 09/07/20 Unknown Rx levETIRAcetam [Keppra TAB] 500 mg PO BID #60 tablet 09/07/20 Unknown Rx levETIRAcetam [Keppra TAB] 500 mg PO BID #60 tablet 10/18/20 Unknown Rx Promethazine [Phenergan] 25 mg PO Q6HR PRN #10 tab 10/20/20 Unknown Rx ED Physical Exam - General Limitations: No Limitations General appearance: alert, in no apparent distress, other (Appears chronically ill) - Head Head exam: Present: atraumatic, normocephalic - Eye Eye exam: Present: normal appearance - ENT ENT exam: Present: mucous membranes moist - Neck Neck exam: Present: normal inspection - Respiratory Respiratory exam: Present: normal lung sounds bilaterally. Absent: respiratory distress, wheezes, rales, rhonchi, stridor - Cardiovascular Cardiovascular Exam: Present: regular rate, normal rhythm, normal heart sounds. Absent: systolic murmur, diastolic murmur, rubs, gallop - GI/Abdominal GI/Abdominal exam: Present: soft. Absent: distended, tenderness, guarding - Rectal Rectal exam: Present: deferred - Extremities Exam Extremities exam: Present: normal inspection - Neurological Exam Neurological exam: Present: alert, oriented X3 - Psychiatric Psychiatric exam: Present: normal mood, flat affect - Skin Skin exam: Present: warm, dry, intact, normal color. Absent: rash ED Course Vital Signs 10/20/20 08:48 Pulse Rate 87 Respiratory 16 Rate Blood Pressure 127/87 [Right] O2 Sat by Pulse 96 Oximetry ED Medical Decision Making - Lab Data Result diagrams: 10/20/20 09:07 10/20/20 09:07 Laboratory Results - last 24 hr 10/20/20 10/20/20 09:07 09:07 WBC 7.0 RBC 4.83 Hgb 17.6 H Hct 50.0 H MCV 104 H MCH 37 H MCHC 35 H RDW 21.6 H Plt Count 159 Lymph % (Auto) 27.1 [place] % (Auto) 10.4 H Eos % (Auto) 2.2 Baso % (Auto) 0.9 Lymph # (Auto) 1.9 [place] # (Auto) 0.7 Eos # (Auto) 0.2 Baso # (Auto) 0.1 Seg Neutrophils % 59.4 Seg Neutrophils # 4.2 Sodium 133 L Potassium 3.7 Chloride 95.1 L Carbon Dioxide 28 Anion Gap 14 BUN 12 Creatinine 0.7 L Estimated GFR > 60 BUN/Creatinine Ratio 17 Glucose 96 Calcium 9.1 Total Bilirubin 1.20 AST 48 H ALT 26 Alkaline Phosphatase 138 H Total Protein 7.0 Albumin 3.9 Albumin/Globulin Ratio 1.3 - Medical Decision Making 1. Anxiety: Patient received Ativan IM in emergency department. Referred to [facility] 2. Nausea: Likely related to alcohol use or alcoholic gastritis. Prescribed promethazine, patient received Zofran ODT in emergency department. Critical care attestation.: If time is entered above; I have spent that time in minutes in the direct care of this critically ill patient, excluding procedure time. ED Disposition Clinical Impression: Alcohol dependence, Anxiety Disposition: HOME / SELF CARE / HOMELESS Is pt being admited?: No Does the pt Need Aspirin: No Condition: Stable Prescriptions: Promethazine [Phenergan] 25 mg PO Q6HR PRN #10 tab PRN Reason: Nausea Referrals: [facility] [Outside] - 3-5 Days
== END 2020-10-20 12:25 | disposition home or self-care (01) ==
LOC: ED 21:15
DX: F10.20 Alcohol dependence, uncomplicated (principal); F41.9 Anxiety disorder, unspecified; I10 Essential (primary) hypertension; J45.909 Unspecified asthma, uncomplicated; Z87.891 Personal history of nicotine dependence; Z98.890 Other specified postprocedural states; Z88.8 Allergy status to other drugs, medicaments and biological substances
CPT/HCPCS: 36415; 80053; 85025; 96372; 99283; J2060; Q0162

== ENCOUNTER 2020-11-18 07:48 | Emergency (ER) | payer SELFPAY ==
--- NOTE | 2020-11-18 08:34 | Emergency Department Report ---
ED Recheck HPI - General Chief Complaint: Medical Clearance Stated Complaint: OUT OF MEDICATION Time Seen by Provider: 11/18/20 08:25 Source: patient Mode of arrival: Ambulatory Limitations: No Limitations - History of Present Illness Initial Comments: This is a 65-year-old male who presents to the emergency room for medication refills. Patient states he was discharged from [facility] and prescribed medication for schizophrenia and anxiety. Patient states he ran out of money and was unable to refill his prescriptions and occasionally feel anxious. He also reports some nausea or vomiting symptoms that are occasional. He denies SI/HI, abdominal pain, chest pain, chills, fever, cough, or weakness. MD Complaint: medication refill request Initial Visit For: other (Medication refill) Returns Today for: request for prescription Associated Symptoms: none - Related Data Previous Rx's Medication Instructions Recorded Last Taken Type Ibuprofen [Motrin 600 MG tab] 600 mg PO Q8H PRN #10 tablet 04/04/19 Unknown Rx Multivitamin Tab [Multiple Vitamin 1 each PO DAILY #30 tablet 04/04/19 Unknown Rx TAB (Theragran)] amLODIPine 5 mg PO QDAY #30 tablet 04/04/19 Unknown Rx atenoloL [Tenormin] 50 mg PO QDAY #30 tablet 04/04/19 Unknown Rx chlordiazePOXIDE [Librium] 25 mg PO Q8H #7 capsule 04/04/19 Unknown Rx chlordiazePOXIDE [Librium] 25 mg PO Q8H PRN #8 capsule 01/04/20 Unknown Rx Phenytoin [Dilantin] 100 mg PO Q8HR #90 capsule 09/07/20 Unknown Rx levETIRAcetam [Keppra TAB] 500 mg PO BID #60 tablet 09/07/20 Unknown Rx levETIRAcetam [Keppra TAB] 500 mg PO BID #60 tablet 10/18/20 Unknown Rx Promethazine [Phenergan] 25 mg PO Q6HR PRN #10 tab 10/20/20 Unknown Rx Allergies Allergy/AdvReac Type Severity Reaction Status Date / Time olanzapine [From Zyprexa] Allergy Nausea Verified 02/15/19 18:02 ED Review of Systems ROS: Stated complaint: OUT OF MEDICATION Other details as noted in HPI Constitutional: denies: chills, fever Respiratory: denies: cough, shortness of breath, wheezing Cardiovascular: denies: chest pain, palpitations Gastrointestinal: denies: abdominal pain, nausea, diarrhea Skin: denies: rash, lesions Neurological: denies: headache, weakness, paresthesias Psychiatric: denies: anxiety, depression ED Past Medical Hx - Past Medical History Previous Medical History?: Yes Hx Hypertension: Yes Hx Congestive Heart Failure: No Hx Diabetes: No Hx Seizures: Yes Hx Psychiatric Treatment: Yes (anxiety psychosis) Hx Asthma: Yes Hx COPD: No Additional medical history: Pancreatitis. legally blind - Surgical History Additional Surgical History: R knee surgery, left lung injury HIP SURGERY - Social History Smoking Status: Never Smoker Substance Use Type: None - Medications Home Medications: Home Medications Medication Instructions Recorded Confirmed Last Taken Type Ibuprofen [Motrin 600 MG tab] 600 mg PO Q8H PRN #10 tablet 04/04/19 05/03/19 Unknown Rx Multivitamin Tab [Multiple Vitamin 1 each PO DAILY #30 tablet 04/04/19 05/03/19 Unknown Rx TAB (Theragran)] amLODIPine 5 mg PO QDAY #30 tablet 04/04/19 05/03/19 Unknown Rx atenoloL [Tenormin] 50 mg PO QDAY #30 tablet 04/04/19 05/03/19 Unknown Rx chlordiazePOXIDE [Librium] 25 mg PO Q8H #7 capsule 04/04/19 05/03/19 Unknown Rx chlordiazePOXIDE [Librium] 25 mg PO Q8H PRN #8 capsule 01/04/20 Unknown Rx Phenytoin [Dilantin] 100 mg PO Q8HR #90 capsule 09/07/20 Unknown Rx levETIRAcetam [Keppra TAB] 500 mg PO BID #60 tablet 09/07/20 Unknown Rx levETIRAcetam [Keppra TAB] 500 mg PO BID #60 tablet 10/18/20 Unknown Rx Promethazine [Phenergan] 25 mg PO Q6HR PRN #10 tab 10/20/20 Unknown Rx ED Physical Exam - General Limitations: No Limitations General appearance: alert, in no apparent distress - Respiratory Respiratory exam: Present: normal lung sounds bilaterally. Absent: respiratory distress - Cardiovascular Cardiovascular Exam: Present: regular rate, normal rhythm. Absent: systolic murmur, diastolic murmur, rubs, gallop - GI/Abdominal GI/Abdominal exam: Present: soft, normal bowel sounds. Absent: distended, tenderness, guarding, rebound, rigid, organomegaly, mass - Extremities Exam Extremities exam: Present: normal inspection - Back Exam Back exam: Present: normal inspection - Neurological Exam Neurological exam: Present: alert, oriented X3 - Psychiatric Psychiatric exam: Present: anxious. Absent: agitated, homicidal ideation, suicidal ideation - Skin Skin exam: Present: warm, dry, intact, normal color. Absent: rash ED Course Vital Signs 11/18/20 11/18/20 07:53 09:26 Temperature 98.2 F 98.4 F Pulse Rate 111 H 89 Respiratory 16 16 Rate Blood Pressure 152/98 170/99 [Right] O2 Sat by Pulse 98 97 Oximetry ED Recheck MDM - Differential Diagnosis Prescription Refill(s) - Medical Decision Making This is a 65-year-old male who presents for medication refills. There is low suspicion for acute cardiopulmonary process, PE, thoracic dissection. There is no evidence of alcohol withdrawal symptoms. His presentation is benign consistent with a medical emergency. There are no indications for psychiatric consultation. Patient given 1 dose of antipsychotic medication. Medications were unable to be refilled because patient cannot remember dose. Instructed to follow-up with PCP for refills. Patient discharged home stable. Given strict return instructions. Critical care attestation.: If time is entered above; I have spent that time in minutes in the direct care of this critically ill patient, excluding procedure time. ED Disposition Clinical Impression: Medication refill, Anxiety Disposition: HOME / SELF CARE / HOMELESS Is pt being admited?: No Condition: Stable Instructions: Managing Anxiety, Adult Referrals: [facility] [Provider Group] - 3-5 Days TANA DEL VALLE MD [Staff Physician] - 3-5 Days Time of Disposition: 10:26
[2020-11-18] MEDS ORDERED: PANTOPRAZOLE 40 MG TAB PO ONE ×2 (08:38→10:58)
[2020-11-18] MEDS ORDERED: ALPRAZolam 0.5 MG TAB PO ONE ×2 (08:38→10:57)
[2020-11-18 09:29] VITALS: BP 170/99
== END 2020-11-18 11:44 | disposition home or self-care (01) ==
LOC: ED 07:48
DX: F41.8 Other specified anxiety disorders (principal); Z76.0 Encounter for issue of repeat prescription; R56.9 Unspecified convulsions; F29 Unspecified psychosis not due to a substance or known physiological condition; J45.909 Unspecified asthma, uncomplicated; K85.90 Acute pancreatitis without necrosis or infection, unspecified; Z98.890 Other specified postprocedural states; Z88.8 Allergy status to other drugs, medicaments and biological substances
CPT/HCPCS: 99283

== ENCOUNTER 2020-12-09 20:59 | Emergency (ER) | payer SELFPAY ==
[2020-12-10] MEDS ORDERED: LORazepam 1 MG TAB PO ONE (02:25)
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
--- NOTE | 2020-12-10 03:05 | XRay Report ---
CHEST 1 VIEW INDICATION / CLINICAL INFORMATION: sob. Dyspnea FINDINGS: SUPPORT DEVICES: None. HEART / MEDIASTINUM: No significant abnormality. LUNGS / PLEURA: No significant pulmonary or pleural abnormality. No pneumothorax. ADDITIONAL FINDINGS: No significant additional findings. IMPRESSION: 1. No acute findings. Signer Name: Yaakov Oakes MD Signed: 12/10/2020 3:01 AM Workstation Name: [id number]
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
[2020-12-10 03:09] LABS: Basophils # (Auto) 0.1 K/mm3 (0.0-0.1); Basophils % (Auto) 1.8 % (0.0-1.8); Eosinophils # (Auto) 0.1 K/mm3 (0.0-0.4); Eosinophils % (Auto) 1.2 % (0.0-4.3); Hematocrit 51.3 % (35.5-45.6); Hemoglobin 17.6 gm/dl (11.8-15.2); Lymphocytes # (Auto) 1.7 K/mm3 (1.2-5.4); Lymphocytes % (Auto) 32.6 % (13.4-35.0); Mean Corpuscular HGB Conc 34 % (32-34); Mean Corpuscular Volume 110 fl (84-94); Monocytes # (Auto) 0.6 K/mm3 (0.0-0.8); Monocytes % (Auto) 11.4 % (0.0-7.3); Platelet Count 279 K/mm3 (140-440); Red Blood Count 4.69 M/mm3 (3.65-5.03); Red Cell Distribution Width 18.4 % (13.2-15.2)
[2020-12-10 03:25] LABS: Blood Urea Nitrogen 6 mg/dL (9-20)
[2020-12-10 03:26] LABS: Alanine Aminotransferase 86 units/L (7-56); Albumin 3.4 g/dL (3.9-5); BUN/Creatinine Ratio 7; Calcium 8.4 mg/dL (8.4-10.2); Hemolysis Index 17
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
[2020-12-10 06:49] VITALS: BP 140/89
== END 2020-12-10 06:44 | disposition home or self-care (01) ==
LOC: ED 20:59
DX: F10.10 Alcohol abuse, uncomplicated (principal); I10 Essential (primary) hypertension; F41.9 Anxiety disorder, unspecified; Z98.890 Other specified postprocedural states; Z79.899 Other long term (current) drug therapy; Z88.8 Allergy status to other drugs, medicaments and biological substances; Y90.9 Presence of alcohol in blood, level not specified
CPT/HCPCS: 36415; 71045; 80053; 84484; 85025; 99283

== ENCOUNTER 2020-12-10 23:20 | Emergency (ER) | payer SELFPAY ==
[2020-12-10] MEDS ORDERED: levETIRAcetam 1,000 MG in SODIUM CHLORIDE 0.9% 100 ML IV ONE (23:56)
[2020-12-10] MEDS ORDERED: LORazepam 2 MG/ML VIAL IV ONE (23:56)
[2020-12-10] MEDS ORDERED: SODIUM CHLORIDE 0.9% 1000 ML 1,000 ML IV ONE (23:57)
--- NOTE | 2020-12-11 00:06 | Emergency Department Report ---
ED Seizure HPI - General Chief Complaint: Seizure Stated Complaint: SEIZURE, WEAKNESS Time Seen by Provider: 12/10/20 23:44 Source: patient, EMS Mode of arrival: Stretcher Limitations: No Limitations - History of Present Illness Initial Comments: 65-year-old male, history of seizure disorder, alcohol abuse, anxiety, presents to ED following seizure. Patient states he does not drink as often as he used to. States he cut back drinking 1 month ago because he started "throwing up a lot" when he drinks. Patient reports he had 1 wine cooler today. Patient was found at [employer] Per employee, patient had a seizure. Patient states he was recently given a prescription for Keppra but has not picked it up yet. MD Complaint: seizure -: This evening Description of Episode: loss of consciousness Witnessed:: Yes Seizure History: known seizure disorder, history of withdrawal se, history of non-compliance Place: other Associated Symptoms: denies other symptoms Treatments Prior to Arrival: none - Related Data Previous Rx's Medication Instructions Recorded Last Taken Type Ibuprofen [Motrin 600 MG tab] 600 mg PO Q8H PRN #10 tablet 04/04/19 Unknown Rx Multivitamin Tab [Multiple Vitamin 1 each PO DAILY #30 tablet 04/04/19 Unknown Rx TAB (Theragran)] amLODIPine 5 mg PO QDAY #30 tablet 04/04/19 Unknown Rx atenoloL [Tenormin] 50 mg PO QDAY #30 tablet 04/04/19 Unknown Rx chlordiazePOXIDE [Librium] 25 mg PO Q8H #7 capsule 04/04/19 Unknown Rx chlordiazePOXIDE [Librium] 25 mg PO Q8H PRN #8 capsule 01/04/20 Unknown Rx Phenytoin [Dilantin] 100 mg PO Q8HR #90 capsule 09/07/20 Unknown Rx levETIRAcetam [Keppra TAB] 500 mg PO BID #60 tablet 09/07/20 Unknown Rx levETIRAcetam [Keppra TAB] 500 mg PO BID #60 tablet 10/18/20 Unknown Rx Promethazine [Phenergan] 25 mg PO Q6HR PRN #10 tab 10/20/20 Unknown Rx Allergies Allergy/AdvReac Type Severity Reaction Status Date / Time olanzapine [From Zyprexa] Allergy Nausea Verified 02/15/19 18:02 ED Review of Systems ROS: Stated complaint: SEIZURE, WEAKNESS Other details as noted in HPI Comment: All other systems reviewed and negative Constitutional: denies: chills, fever Neurological: other (Seizure reported) ED Past Medical Hx - Past Medical History Hx Hypertension: Yes Hx Congestive Heart Failure: No Hx Diabetes: No Hx Seizures: Yes Hx Psychiatric Treatment: Yes (anxiety psychosis) Hx Asthma: Yes Hx COPD: No Additional medical history: Pancreatitis. legally blind - Surgical History Additional Surgical History: R knee surgery, left lung injury HIP SURGERY - Social History Smoking Status: Never Smoker - Medications Home Medications: Home Medications Medication Instructions Recorded Confirmed Last Taken Type Ibuprofen [Motrin 600 MG tab] 600 mg PO Q8H PRN #10 tablet 04/04/19 05/03/19 Unknown Rx Multivitamin Tab [Multiple Vitamin 1 each PO DAILY #30 tablet 04/04/19 05/03/19 Unknown Rx TAB (Theragran)] amLODIPine 5 mg PO QDAY #30 tablet 04/04/19 05/03/19 Unknown Rx atenoloL [Tenormin] 50 mg PO QDAY #30 tablet 04/04/19 05/03/19 Unknown Rx chlordiazePOXIDE [Librium] 25 mg PO Q8H #7 capsule 04/04/19 05/03/19 Unknown Rx chlordiazePOXIDE [Librium] 25 mg PO Q8H PRN #8 capsule 01/04/20 Unknown Rx Phenytoin [Dilantin] 100 mg PO Q8HR #90 capsule 09/07/20 Unknown Rx levETIRAcetam [Keppra TAB] 500 mg PO BID #60 tablet 09/07/20 Unknown Rx levETIRAcetam [Keppra TAB] 500 mg PO BID #60 tablet 10/18/20 Unknown Rx Promethazine [Phenergan] 25 mg PO Q6HR PRN #10 tab 10/20/20 Unknown Rx ED Physical Exam - General Limitations: No Limitations General appearance: alert, in no apparent distress, other (Appears unkempt) - Head Head exam: Present: atraumatic, normocephalic - Eye Eye exam: Present: normal appearance, EOMI - ENT ENT exam: Present: mucous membranes moist - Neck Neck exam: Present: normal inspection - Respiratory Respiratory exam: Present: normal lung sounds bilaterally. Absent: respiratory distress - Cardiovascular Cardiovascular Exam: Present: normal rhythm, tachycardia - GI/Abdominal GI/Abdominal exam: Present: soft. Absent: distended, tenderness - Extremities Exam Extremities exam: Present: normal inspection - Neurological Exam Neurological exam: Present: alert, oriented X3, CN II-XII intact. Absent: motor sensory deficit - Psychiatric Psychiatric exam: Present: normal affect, normal mood - Skin Skin exam: Present: warm, dry, intact, normal color ED Course Vital Signs 12/10/20 12/10/20 12/10/20 23:42 23:50 23:59 Temperature 98.5 F Pulse Rate 110 H Respiratory 18 Rate Blood Pressure Blood Pressure 122/89 139/80 [Left] O2 Sat by Pulse 95 96 97 Oximetry 12/11/20 12/11/20 12/11/20 00:01 00:15 01:45 Temperature Pulse Rate Respiratory Rate Blood Pressure 139/80 139/80 Blood Pressure 124/75 [Left] O2 Sat by Pulse 96 97 99 Oximetry ED Medical Decision Making - Lab Data Result diagrams: 12/11/20 00:05 12/11/20 00:05 - Medical Decision Making 65-year-old male with reported seizure prior to ED arrival. No seizure activity here in the ED. Patient initially arrived somewhat tachycardic heart rate in the 110s. IV fluids, Ativan, Keppra given. Heart rate has currently normalized. I do not believe patient is an alcohol withdrawal. He reports he cut back his alcohol intake 1 month ago. Reports he had one wine cooler today. Patient is not hypertensive or tremulous. Patient is agreeable with discharge. 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 Outpatient follow-up advised, return precautions given. - Differential Diagnosis Seizure, medication noncompliance Critical care attestation.: If time is entered above; I have spent that time in minutes in the direct care of this critically ill patient, excluding procedure time. ED Disposition Clinical Impression: Seizures Disposition: HOME / SELF CARE / HOMELESS Is pt being admited?: No Condition: Stable Instructions: Seizure, Adult, [id number] Referrals: PRIMARY CARE, [Primary Care Provider] - 3-5 Days Time of Disposition: 01:15
[2020-12-11] MEDS ORDERED: levETIRAcetam 1000 MG/NS 0.75% 1,000 MG/100 ML BAG IV ONE ×2 (00:18→01:10)
[2020-12-11 00:37] LABS: Basophils # (Auto) 0.1 K/mm3 (0.0-0.1); Basophils % (Auto) 2.3 % (0.0-1.8); Eosinophils % (Auto) 0.7 % (0.0-4.3); Lymphocytes # (Auto) 1.2 K/mm3 (1.2-5.4); Lymphocytes % (Auto) 19.5 % (13.4-35.0); Mean Corpuscular HGB Conc 36 % (32-34); Monocytes # (Auto) 0.8 K/mm3 (0.0-0.8); Monocytes % (Auto) 12.3 % (0.0-7.3); Platelet Count 230 K/mm3 (140-440); Red Blood Count 4.19 M/mm3 (3.65-5.03); Red Cell Distribution Width 17.8 % (13.2-15.2)
[2020-12-11 00:40] LABS: Hematocrit 46.2 % (35.5-45.6); Hemoglobin 16.5 gm/dl (11.8-15.2); Mean Corpuscular Volume 110 fl (84-94)
[2020-12-11 00:43] LABS: BUN/Creatinine Ratio 6; Blood Urea Nitrogen 5 mg/dL (9-20); Hemolysis Index 16
[2020-12-11] MEDS ORDERED: POTASSIUM CHLORIDE ER 20 MEQ TAB PO ONE (01:14)
[2020-12-11 02:22] VITALS: BP 124/75
== END 2020-12-11 01:45 | disposition home or self-care (01) ==
LOC: ED 23:20
DX: G40.909 Epilepsy, unspecified, not intractable, without status epilepticus (principal); I10 Essential (primary) hypertension; J45.909 Unspecified asthma, uncomplicated; Z88.8 Allergy status to other drugs, medicaments and biological substances; Z79.899 Other long term (current) drug therapy
CPT/HCPCS: 36415; 80048; 85025; 96365; 96375; 99284; J1953; J2060; J7030

== ENCOUNTER 2020-12-13 21:45 | Inpatient (IN) | payer SELFPAY ==
[2020-12-13] MEDS ORDERED: SODIUM CHLORIDE 0.9% 1000 ML 1,000 ML IV ONE (22:05)
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
--- NOTE | 2020-12-13 22:59 | XRay Report ---
CHEST 1 VIEW 12/13/2020 10:46 PM INDICATION / CLINICAL INFORMATION: Fall. Chest pain COMPARISON: 12/10/2020 FINDINGS: SUPPORT DEVICES: None. HEART / MEDIASTINUM: No significant abnormality. LUNGS / PLEURA: No significant pulmonary or pleural abnormality. No pneumothorax. ADDITIONAL FINDINGS: No significant additional findings. IMPRESSION: 1. No acute findings. Signer Name: Socrates Ontiveros MD Signed: 12/13/2020 10:54 PM Workstation Name: [id number]
[2020-12-14] MEDS ORDERED: MORPHINE 4 MG/1 ML INJ IV ONE (00:03)
[2020-12-14] MEDS ORDERED: ONDANSETRON 4 MG/2 ML INJ IV ONE ×2 (00:03→07:03)
[2020-12-14 00:04] LABS: Basophils # (Auto) 0.1 K/mm3 (0.0-0.1); Basophils % (Auto) 0.5 % (0.0-1.8); Lymphocytes # (Auto) 0.6 K/mm3 (1.2-5.4); Lymphocytes % (Auto) 4.1 % (13.4-35.0); Mean Corpuscular HGB Conc 36 % (32-34); Mean Corpuscular Volume 108 fl (84-94); Monocytes # (Auto) 1.2 K/mm3 (0.0-0.8); Monocytes % (Auto) 8.1 % (0.0-7.3); Red Blood Count 4.44 M/mm3 (3.65-5.03)
[2020-12-14 00:17] LABS: Alanine Aminotransferase 48 units/L (7-56); Albumin 3.1 g/dL (3.9-5); BUN/Creatinine Ratio 14; Bilirubin,Direct 0.9 mg/dL (0-0.2); Blood Urea Nitrogen 17 mg/dL (9-20); Calcium 8.7 mg/dL (8.4-10.2); Hemolysis Index 15
[2020-12-14 00:27] LABS: Bacteria,Urine 1+ /HPF (Negative); Bilirubin,Urine NEG (Negative); Blood,Urine NEG (Negative); Color,Urine Amber (Yellow); Hyaline Casts,Urine 1 /LPF; Mucus,Urine FEW /HPF
[2020-12-14 00:33] LABS: Partial Thromboplastin Time 27.4 Sec. (24.2-36.6)
[2020-12-14] MEDS ORDERED: MORPHINE 2 MG/1 ML INJ IV ONE ×2 (00:33→07:02)
[2020-12-14 00:35] LABS: Amphetamine Screen,Urine PRESUMPTIVE NEGATIVE; Benzodiazepines Screen,Urine PRESUMPTIVE NEGATIVE; Cannabinoid Screen,Urine PRESUMPTIVE NEGATIVE; Cocaine Screen,Urine PRESUMPTIVE NEGATIVE; Methadone Screen,Urine PRESUMPTIVE NEGATIVE; Opiate Screen,Urine PRESUMPTIVE NEGATIVE
[2020-12-14 00:43] LABS: Hemoglobin 17.4 gm/dl (11.8-15.2); Platelet Count 217 K/mm3 (140-440)
[2020-12-14] MEDS ORDERED: cefTRIAXone/NS 1 GM/50 ML 1 GM/50 ML BAG IV ONE (00:52)
[2020-12-14] MEDS ORDERED: POTASSIUM CHLORIDE ER 20 MEQ TAB PO ONE ×2 (00:52→09:00)
[2020-12-14] MEDS ORDERED: SODIUM CHLORIDE 0.9% 1000 ML 1,000 ML IV ONE (00:52)
--- NOTE | 2020-12-14 01:50 | Cat Scan Report ---
CT HEAD WITHOUT CONTRAST INDICATION / CLINICAL INFORMATION: Fall. Headache TECHNIQUE: All CT scans at this location are performed using CT dose reduction for ALARA by means of automated e xposure control. COMPARISON: Head CT 02/11/2020 FINDINGS: HEMORRHAGE: New asymmetric mild hyperdense thickening along the left tentorium characteristic for tin y 2 mm subdural. EXTRA-AXIAL SPACES: Normal in size and morphology for the patient's age. VENTRICULAR SYSTEM: Normal in size and morphology for the patient's age. CEREBRAL PARENCHYMA: Mild to moderate periventricular white matter microangiopathy, unchanged No sign ificant abnormality. No acute territorial infarct. MIDLINE SHIFT OR HERNIATION: None. CEREBELLUM / BRAINSTEM: No significant abnormality. ORBITS: Normal as visualized. SOFT TISSUES of HEAD: No significant abnormality. CALVARIUM: No significant abnormality. PARANASAL SINUSES / MASTOID AIR CELLS: Normal as visualized. ADDITIONAL FINDINGS: None. IMPRESSION: 1. Probable tiny left tentorial subdural hematoma 2. Mild to moderate microangiopathy, unchanged CRITICAL RESULT: Tiny left tentorial subdural hematoma, new since February 2020 Time of Discovery (PRODUCTION BOW MAKER/CDT): 12:45 AM Central standard time 12/14/2020 Time of Communication (PRODUCTION BOW MAKER/CDT): 12:46 AM Central standard time Licensed Practitioner Receiving Report: Bridget Kimble Read-Back Performed: Yes. Signer Name: Socrates Ontiveros MD Signed: 12/14/2020 1:46 AM Workstation Name: [id number]
--- NOTE | 2020-12-14 01:54 | Cat Scan Report ---
CT CERVICAL SPINE WITHOUT CONTRAST INDICATION: Fall. Neck pain TECHNIQUE: All CT scans at this location are performed using CT dose reduction for ALARA by means of automated e xposure control. Axial CT images were obtained through the cervical spine. Sagittal and coronal reformatted images we re produced. COMPARISON: None available. FINDINGS: Fracture: None. Subluxation: None. Spinal canal: No significant compromise. Disc spaces: Moderate discogenic degenerative disease C3-4 and C5-7 Facet joints: Moderate facet degenerative disease C2-3 and C5-6 Paraspinal soft tissues: No soft tissue swelling. Normal. Additional findings: None. Lung apices: Normal. IMPRESSION: 1. No acute findings. Signer Name: Socrates Ontiveros MD Signed: 12/14/2020 1:49 AM Workstation Name: [id number]
[2020-12-14] MEDS ORDERED: MORPHINE 4 MG/1 ML INJ IM ONE (02:02)
[2020-12-14] MEDS ORDERED: MORPHINE 2 MG/1 ML INJ IM ONE (06:14)
[2020-12-14 06:45] LABS: BUN/Creatinine Ratio 20
[2020-12-14 06:46] LABS: Blood Urea Nitrogen 22 mg/dL (9-20); Calcium 7.8 mg/dL (8.4-10.2); Hemolysis Index 12
[2020-12-14] MEDS ORDERED: LORazepam 2 MG/ML VIAL IV PRN (07:16)
--- NOTE | 2020-12-14 07:18 | Event Note ---
Date: 12/14/[address] Kimble. This is a 65-year-old male with history of alcohol use disorder and seizure disorder who was found down in a parking lot after suspected ground-level fall. The patient states that he had a seizure. Work-up was performed here in the emergency department and Noncon CT of the head revealed small 2 mm tentorial subdural hemorrhage. Neurosurgery was consulted and recommended repeat 6-hour CT with instructions that if unchanged, the patient could be discharged from a neurosurgical standpoint. However, the [facility] labs reveal several abnormalities including leukocytosis with white blood cell count of 14.9, elevated hemoglobin of 17.4 which may suggest hemoconcentration, as well as positive troponin of 0.091 and significant hypokalemia with potassium of 2.5. Patient was given oral potassium repletion. His urinalysis also showed evidence of UTI and he was given ceftriaxone. He has a repeat CT ordered for 8 AM. I personally spoke with Kalyan in radiology and stressed the importance of the timing of this CT scan. I went and performed an assessment myself and the patient is lying down in bed in no acute distress. He is ANO x4 and speaking in full sentences. He reports that his only complaint at this time is headache and some slight nausea. He denies any chest pain, shortness of breath, cough, fevers, abdominal pain, back pain, focal weakness, sensory changes, or any other complaints. He has a nonfocal neurologic exam. EKG was performed and was interpreted by me. EKG shows sinus tachycardia with normal axis and normal intervals. There are frequent PVCs. There are diffuse T wave inversions noted especially in the inferior and lateral leads with what appears to be prolonged QT but is likely fusion between T and U waves. Review of patient's prior EKG which was last performed almost 1 year ago reveals that these abnormalities are new and are likely a manifestation of severe h ypokalemia. We will consult cardiology. At 7:01 AM I spoke with Dr. Maloney of Cardiology who recommended aggressive potassium repletion and admission for close monitoring. He recommends holding anticoagulation despite the positive troponin. Will provide further inpatient recommendations. I have added on repeat troponin level, repeat BMP. Repeat BMP shows potassium of 2.6, troponin is trending down with subsequent level of 0.07. I will order 40 mEq of IV potassium as well as the CIWA order set given that the patient has history of severe alcohol withdrawal with delirium tremens. At 7:55 AM labs has resulted revealing hypomagnesemia with level of 1.0. We will replete the magnesium along with the potassium. Repeat CT of the head is still pending. I spoke to the patient regarding the need for admission due to several acute medical issues which require management, close observation, and possible further work-up. He expressed understanding and agreement with the plan for admission. At 7:10 AM I spoke with the hospitalist Dr. Bustamante regarding admission. He accepts the patient for admission and the admitting physician will be Dr. Curtis. The hospitalist team will assume care of the patient. They understand that further diagnostic studies are still pending including repeat CT of the head, which I will follow up and discuss with them if abnormal. Repeat [address] of the head shows stable small tentorial hemorrhage without significant change.
[2020-12-14 07:42] LABS: Chol/HDL Ratio 1.94 %; HDL Cholesterol 58 mg/dL (40-59); LDL Cholesterol,Direct 43 mg/dL (50-130)
--- NOTE | 2020-12-14 07:45 | History and Physical Report ---
History of Present Illness Date of examination: 12/14/20 Date of admission: 12/14/2020 Chief complaint: s/p fall, neck pain History of present illness: 65-year-old male patient with significant past medical history of chronic alcohol use, seizure disorder presented to the emergency room with history of fall and neck pain, patient was brought by the EMS and neck collar. CT cervical spine no acute abnormalities noted However CT head without contrast show small left tentorial subdural hematoma. ER physician consulted neurosurgeon who recommended repeat CT head without contrast in 6 [address] obtained after 6 hours, no change in the findings Other work-up is consistent with severe hypokalemia, hyponatremia, elevated cardiac enzymes and UA consistent with UTI patient also has leukocytosis. Patient complains of neck pain asking for pain medications, Mild headache, denies nausea vomiting or abdominal pain Alert awake oriented x3 Past History Past Medical History: hypertension, seizures, other (Pancreatitis, chronic alc ohol use,) Past Surgical History: Other (Right knee surgery, hip surgery, lung injury) Social history: alcohol abuse. denies: smoking Family history: no significant family history Medications and Allergies Allergies Allergy/AdvReac Type Severity Reaction Status Date / Time olanzapine [From Zyprexa] Allergy Nausea Verified 02/15/19 18:02 Home Medications Medication Instructions Recorded Confirmed Last Taken Type Ibuprofen [Motrin 600 MG tab] 600 mg PO Q8H PRN #10 tablet 04/04/19 05/03/19 Unknown Rx Multivitamin Tab [Multiple Vitamin 1 each PO DAILY #30 tablet 04/04/19 05/03/19 Unknown Rx TAB (Theragran)] amLODIPine 5 mg PO QDAY #30 tablet 04/04/19 05/03/19 Unknown Rx atenoloL [Tenormin] 50 mg PO QDAY #30 tablet 04/04/19 05/03/19 Unknown Rx chlordiazePOXIDE [Librium] 25 mg PO Q8H #7 capsule 04/04/19 05/03/19 Unknown Rx chlordiazePOXIDE [Librium] 25 mg PO Q8H PRN #8 capsule 01/04/20 Unknown Rx Phenytoin [Dilantin] 100 mg PO Q8HR #90 capsule 09/07/20 Unknown Rx levETIRAcetam [Keppra TAB] 500 mg PO BID #60 tablet 09/07/20 Unknown Rx levETIRAcetam [Keppra TAB] 500 mg PO BID #60 tablet 10/18/20 Unknown Rx Promethazine [Phenergan] 25 mg PO Q6HR PRN #10 tab 10/20/20 Unknown Rx Ciprofloxacin HCl 500 mg PO BID 10 Days #20 tablet 12/14/20 Unknown Rx Active Meds: Active Medications Potassium Chloride (Kcl 10meq/100ml) 10 meq in 100 mls @ 100 mls/hr IV Q1H DG Stop: 12/14/20 11:59 Lorazepam (Lorazepam 2 Mg/Ml Vial) 2 mg IV Q1HR PRN PRN Reason: [facility]-Ar 8-15 Lorazepam (Lorazepam 2 Mg/Ml Vial) 4 mg IV Q1HR PRN PRN Reason: [facility]-Me 16- Review of Systems Constitutional: weakness, no fever, no chills Ears, nose, mouth and throat: no nasal congestion, no nasal discharge Cardiovascular: no chest pain, no palpitations Respiratory: no cough, no shortness of breath Gastrointestinal: no abdominal pain, no nausea, no vomiting Genitourinary Male: no dysuria, no hematuria Musculoskeletal: low back pain, myalgias, other Integumentary: no rash, no lesions Neurological: head injury, other (Subdural hematoma) Psychiatric: no anxiety, no depression Endocrine: no cold intolerance, no heat intolerance Hematologic/Lymphatic: no easy bruising, no easy bleeding Allergic/Immunologic: no urticaria, no allergic rhinitis Exam - Constitutional Vitals: Temp Pulse Resp BP Pulse Ox 112 H 14 12/14/20 02:31 12/14/20 02:31 General appearance: Present: no acute distress, well-nourished - EENT Eyes: Present: PERRL, EOM intact - Neck Neck: Present: supple, normal ROM - Respiratory Respiratory effort: normal Respiratory: bilateral: diminished, negative: rales, rhonchi, wheezing - Cardiovascular Rhythm: regular Heart Sounds: Present: S1 & S2 - Extremities Extremities: no ischemia, No edema - Abdominal General gastrointestinal: Present: soft, non-tender, non-distended, normal bowel sounds - Integumentary Integumentary: Present: clear, warm - Musculoskeletal Musculoskeletal: strength equal bilaterally - Psychiatric Psychiatric: appropriate mood/affect, cooperative - Neurologic Neurologic: moves all extremities HEART Score - HEART Score Troponin: Troponin T 0.074 ng/mL (0.00-0.029) H 12/14/20 06:11 Results - Labs CBC & Chem 7: 12/13/20 23:01 12/14/20 10:01 Labs: Abnormal lab results 12/13/20 12/13/20 12/13/20 Range/Units 23:01 23:01 23:23 WBC 14.9 H (4.5-11.0) K/mm3 Hgb 17.4 H (11.8-15.2) gm/dl Hct 48.0 H (35.5-45.6) % MCV 108 H (84-94) fl MCH 39 H (28-32) pg MCHC 36 H (32-34) % RDW 17.0 H (13.2-15.2) % Lymph % (Auto) 4.1 L (13.4-35.0) % [place] % (Auto) 8.1 H (0.0-7.3) % Lymph # (Auto) 0.6 L (1.2-5.4) K/mm3 [place] # (Auto) 1.2 H (0.0-0.8) K/mm3 Seg Neutrophils % 87.3 H (40.0-70.0) % Seg Neutrophils # 13.0 H (1.8-7.7) K/mm3 Sodium 134 L (137-145) mmol/L Potassium 2.5 L* D (3.6-5.0) mmol/L Chloride 84.4 L (98-107) mmol/L Carbon Dioxide 32 H (22-30) mmol/L BUN (9-20) mg/dL Glucose 142 H (75-100) mg/dL Calcium (8.4-10.2) mg/dL Total Bilirubin 2.80 H (0.1-1.2) mg/dL Direct Bilirubin 0.9 H (0-0.2) mg/dL AST 72 H (5-40) units/L Troponin T 0.091 H (0.00-0.029) ng/mL Albumin 3.1 L (3.9-5) g/dL LDL Cholesterol Direct (50-130) mg/dL Urine WBC (Auto) (0.0-6.0) /HPF 12/13/20 12/14/20 Range/Units Unknown 06:11 WBC (4.5-11.0) K/mm3 Hgb (11.8-15.2) gm/dl Hct (35.5-45.6) % MCV (84-94) fl MCH (28-32) pg MCHC (32-34) % RDW (13.2-15.2) % Lymph % (Auto) (13.4-35.0) % [place] % (Auto) (0.0-7.3) % Lymph # (Auto) (1.2-5.4) K/mm3 [place] # (Auto) (0.0-0.8) K/mm3 Seg Neutrophils % (40.0-70.0) % Seg Neutrophils # (1.8-7.7) K/mm3 Sodium 133 L (137-145) mmol/L Potassium 2.6 L* (3.6-5.0) mmol/L Chloride 86.6 L (98-107) mmol/L Carbon Dioxide 34 H (22-30) mmol/L BUN 22 H (9-20) mg/dL Glucose 126 H (75-100) mg/dL Calcium 7.8 L (8.4-10.2) mg/dL Total Bilirubin (0.1-1.2) mg/dL Direct Bilirubin (0-0.2) mg/dL AST (5-40) units/L Troponin T 0.074 H (0.00-0.029) ng/mL Albumin (3.9-5) g/dL LDL Cholesterol Direct 43 L (50-130) mg/dL Urine WBC (Auto) 27.0 H (0.0-6.0) /HPF Assessment and Plan - Patient Problems (1) Subdural hematoma, acute Current Visit: Yes Status: Acute Plan to address problem: Small subdural hematoma, ED discussed with neurosurgeon, recommend repeat CT head in 6 hours If no increase in SDH, patient may be discharged from his standpoint, continue to monitor CT head without contrast probable tiny left tentorial subdural hematoma Mild to moderate micro angiopathy unchanged (2) Falls Current Visit: Yes Status: Acute Plan to address problem: Fall precautions, fall secondary to alcohol intoxication CT cervical spine; no acute abnormality Chest x-ray no acute findings CT head without contrast probable tiny left tentorial subdural hematoma Mild to moderate micro angiopathy unchanged (3) Hypokalemia Current Visit: Yes Status: Acute Plan to address problem: Replenished with oral and IV KCl Check magnesium levels (4) Hyponatremia Current Visit: No Status: Acute Plan to address problem: Normal saline, supportive care, monitor electrolytes (5) Hypomagnesemia Current Visit: Yes Status: Acute Plan to address problem: Replenished with magnesium sulfate 4 g IV, monitor electrolytes (6) Chronic alcohol use Current Visit: Yes Status: Acute Plan to address problem: Strongly advised to quit alcohol intake, also advised alcohol rehabilitation (7) Elevated troponin Current Visit: Yes Status: Acute Plan to address problem: Nonspecific elevation of troponin, will closely monitor Patient does not complain of any chest pain or shortness of breath (8) Leukocytosis Current Visit: Yes Status: Acute Plan to address problem: Secondary to urinary tract infection, empiric antibiotics, follow urine cultures (9) Urinary tract infection Current Visit: Yes Status: Acute Plan to address problem: Urinary tract infection per urinalysis, empiric antibiotics, follow cultures (10) Alcohol withdrawal Current Visit: Yes Status: Acute Plan to address problem: Closely monitor for any alcohol withdrawal symptoms Initiate CIWA protocol if needed (11) DVT prophylaxis Current Visit: No Status: Acute Plan to address problem: SCDs, no pharmacological anticoagulation due to small subdural hematoma We will closely monitor the patient and adjust the management as needed Follow consultants evaluation and recommendations Closely monitor electrolytes potassium and magnesium Plan of care reviewed with the patient and his nurse
[2020-12-14] MEDS ORDERED: MAGNESIUM SULFATE 2 GM/50 ML BAG IV ONE (07:55)
--- NOTE | 2020-12-14 08:37 | Cat Scan Report ---
CT head/brain wo con INDICATION / CLINICAL INFORMATION: 8AM- [address] TECHNIQUE: Axial CT imaging of the brain was obtained without contrast. Coronal and sagittal reformatted imaging obtained and reviewed. All CT scans at this location are performed using CT dose reduction for ALAR A by means of automated exposure control. COMPARISON: Prior head CT 12/14/2020 at 0108 hours. This is a follow-up CT scan for small left subdural hematoma. FINDINGS: Previously noted very small focal subdural hematoma along the left tentorium is again noted and uncha nged in size. The thickness of the subdural hematoma remains stable at 2-3 MM. No new area of intracr anial hemorrhage is identified. No intracranial mass or midline shift is noted. Ventricular system system and basilar cisterns are un remarkable. As noted on the recent prior study, there is moderate degree of microangiopathy. Mild cerebral and ce rebellar atrophy also present. There is moderate mucosal thickening throughout the right maxillary antrum. There is partial opacific ation of the right mastoid air cells. The remainder the paranasal sinuses and the left mastoid air ce lls are well aerated and clear. IMPRESSION: 1. Stable appearance of very small left tentorial subdural hematoma. No new findings. Signer Name: Norma Orellana MD Signed: 12/14/2020 8:33 AM Workstation Name: [id number]
[2020-12-14] MEDS ORDERED: MORPHINE 4 MG/1 ML INJ IV PRN (09:08)
[2020-12-14] MEDS ORDERED: MAGNESIUM SULFATE 4 GM/100 ML BAG IV ONE (09:56)
[2020-12-14] MEDS: LORazepam 2 MG/ML VIAL IV PRN ×3 (09:57→23:11)
[2020-12-14] MEDS: FAMOTIDINE 20 MG TAB PO SCH ×2 (10:09→23:10)
[2020-12-14] MEDS: THIAMINE 100 MG TAB PO SCH (10:09)
[2020-12-14] MEDS: FOLIC ACID 1 MG TAB PO SCH (10:09)
[2020-12-14] MEDS: levETIRAcetam 500 MG TAB PO SCH ×2 (10:10→23:11)
[2020-12-14] MEDS: MULTIVITAMINS ,THERAPEUTIC TAB PO SCH (10:10)
--- NOTE | 2020-12-14 10:34 | Consultation ---
History of Present Illness Consult date: 12/14/20 Consult reason: other (Abnormal EKG) History of present illness: The patient is a 65-year-old man with chronic alcoholism and a chronic seizure disorder. He is chronically noncompliant with medical therapy and has had multiple emergency room visits over the past month for alcohol intoxication and recurrent seizures. Today, he is admitted to the emergency room after he was found in a parking lot, suspected to have sustained a ground-level fall, resulting in a laceration to the back of the skull. There was no reported syncope, his fall was associated with observed seizure activity as he was being brought to the emergency room. He was also reported with a strong smell of alcohol on his presentation to the emergency room. A CT scan of the head reports a probable small subdural hematoma. Cardiology consultation is requested for evaluation of an abnormal ECG. Patient reports no chest pain or shortness of breath or palpitations. The ECG is a sinus rhythm, with prolongation of the QT interval and sinusoidal appearing ST segment depression and T wave inversion in the inferolateral leads. It will be noted that these ST and T wave changes are new from his previous electrocardiogram, but this is in the setting of marked electrolyte abnormalities including hypokalemia with a potassium of 2.5 and hypomagnesemia with a magnesium level of 1.0. Troponin levels were measured and were borderline at 0.09. Chest x-ray reveals normal-sized cardiac silhouette, and mild bilateral interstitial opacities, no interstitial edema or heart failure. Patient is still in the emergency room at this time, appears markedly unkempt, but is breathing comfortably on room air in no acute distress. Past History Past Medical History: hypertension, seizures, other (Pancreatitis, chronic alcohol use,) Past Surgical History: Other (Right knee surgery, hip surgery, lung injury) Social history: alcohol abuse. denies: smoking Family history: no significant family history Medications and Allergies Allergies Allergy/AdvReac Type Severity Reaction Status Date / Time olanzapine [From Zyprexa] Allergy Nausea Verified 02/15/19 18:02 Home Medications Medication Instructions Recorded Confirmed Last Taken Type Ibuprofen [Motrin 600 MG tab] 600 mg PO Q8H PRN #10 tablet 04/04/19 05/03/19 Unknown Rx Multivitamin Tab [Multiple Vitamin 1 each PO DAILY #30 tablet 04/04/19 05/03/19 Unknown Rx TAB (Theragran)] amLODIPine 5 mg PO QDAY #30 tablet 04/04/19 05/03/19 Unknown Rx atenoloL [Tenormin] 50 mg PO QDAY #30 tablet 04/04/19 05/03/19 Unknown Rx chlordiazePOXIDE [Librium] 25 mg PO Q8H #7 capsule 04/04/19 05/03/19 Unknown Rx chlordiazePOXIDE [Librium] 25 mg PO Q8H PRN #8 capsule 01/04/20 Unknown Rx Phenytoin [Dilantin] 100 mg PO Q8HR #90 capsule 09/07/20 Unknown Rx levETIRAcetam [Keppra TAB] 500 mg PO BID #60 tablet 09/07/20 Unknown Rx levETIRAcetam [Keppra TAB] 500 mg PO BID #60 tablet 10/18/20 Unknown Rx Promethazine [Phenergan] 25 mg PO Q6HR PRN #10 tab 10/20/20 Unknown Rx Ciprofloxacin HCl 500 mg PO BID 10 Days #20 tablet 12/14/20 Unknown Rx Active Meds: Active Medications Famotidine (Famotidine 20 Mg Tab) 20 mg PO BID [facility] Last Admin: 12/14/20 10:09 Dose: 20 mg Documented by: Folic Acid (Folic Acid 1 Mg Tab) 1 mg PO QDAY DG Last Admin: 12/14/20 10:09 Dose: 1 mg Documented by: Potassium Chloride (Kcl 10meq/100ml) 10 meq in 100 mls @ 100 mls/hr IV Q1H DG Stop: 12/14/20 11:59 Sodium Chloride (Nacl 0.9% 1000 Ml) 1,000 mls @ 100 mls/hr IV DIRECT DG Ceftriaxone Sodium (Rocephin/Ns 2 Gm/100 Ml) 2 gm in 100 mls @ 200 mls/hr IV Q24H DG; Protocol Magnesium Sulfate (Magnesium Sulfate 4gm/100ml) 4 gm in 100 mls @ 25 mls/hr IV ONCE ONE Stop: 12/14/20 13:55 Levetiracetam (Levetiracetam 500 Mg Tab) 500 mg PO BID DG Last Admin: 12/14/20 10:10 Dose: 500 mg Documented by: Lorazepam (Lorazepam 2 Mg/Ml Vial) 2 mg IV Q1HR PRN PRN Reason: [facility]-Ar 8- Last Admin: 12/14/20 09:57 Dose: 2 mg Documented by: Lorazepam (Lorazepam 2 Mg/Ml Vial) 4 mg IV Q1HR PRN PRN Reason: [place] 16- Multivitamins (Multivitamins ,Therapeutic Tab) 1 each PO QDAY [facility] Last Admin: 12/14/20 10:10 Dose: 1 each Documented by: Phenytoin (Phenytoin 100 Mg Capsule.Er) 100 mg PO Q8HR [facility] Thiamine HCl (Thiamine 100 Mg Tab) 100 mg PO QDAY [facility] Last Admin: 12/14/20 10:09 Dose: 100 mg Documented by: Review of Systems Cardiovascular: no chest pain, no orthopnea, no palpitations, no rapid/irregular heart beat, no edema, no syncope, no lightheadedness, no shortness of breath Physical Examination Vital Signs Pulse Resp 112 H 14 12/14/20 02:31 12/14/20 02:31 General appearance: cachectic, disheveled, other (Patient appears markedly unkempt, no acute distress) HEENT: Positive: PERRL Neck: Positive: neck supple Cardiac: Positive: Reg Rate and Rhythm Lungs: Positive: Decreased Breath Sounds Neuro: Positive: Grossly Intact Abdomen: Positive: Soft Male genitourinary: Positive: deferred Skin: Positive: Clear Extremities: Absent: edema Results 12/13/20 23:01 12/14/20 06:11 Cardiac Enzymes 12/13/20 Range/Units 23:01 AST 72 H (5-40) units/L Coagulation 12/13/20 Range/Units 23:01 PT 13.7 (12.2-14.9) Sec. INR 1.00 (0.87-1.13) APTT 27.4 (24.2-36.6) Sec. Lipids 12/14/20 Range/Units 06:11 Triglycerides 65 (2-149) mg/dL Cholesterol 113 (50-199) mg/dL HDL Cholesterol 58 (40-59) mg/dL Cholesterol/HDL Ratio 1.94 % CBC 12/13/20 Range/Units 23:01 WBC 14.9 H (4.5-11.0) K/mm3 RBC 4.44 (3.65-5.03) M/mm3 Hgb 17.4 H (11.8-15.2) gm/dl Hct 48.0 H (35.5-45.6) % Plt Count 217 (140-440) K/mm3 Lymph # (Auto) 0.6 L (1.2-5.4) K/mm3 [place] # (Auto) 1.2 H (0.0-0.8) K/mm3 Eos # (Auto) 0.0 (0.0-0.4) K/mm3 Baso # (Auto) 0.1 (0.0-0.1) K/mm3 Comprehensive Metabolic Panel 12/13/20 12/14/20 Range/Units 23:01 06:11 Sodium 134 L 133 L (137-145) mmol/L Potassium 2.5 L* D 2.6 L* (3.6-5.0) mmol/L Chloride 84.4 L 86.6 L (98-107) mmol/L Carbon Dioxide 32 H 34 H (22-30) mmol/L BUN 17 22 H (9-20) mg/dL Creatinine 1.2 1.1 (0.8-1.3) mg/dL Glucose 142 H 126 H (75-100) mg/dL Calcium 8.7 7.8 L (8.4-10.2) mg/dL Direct Bilirubin 0.9 H (0-0.2) mg/dL Indirect Bilirubin 1.9 mg/dL AST 72 H (5-40) units/L ALT 48 (7-56) units/L Alkaline Phosphatase 118 (35-129) units/L Total Protein 6.3 (6.3-8.2) g/dL Albumin 3.1 L (3.9-5) g/dL EKG interpretations - Telemetry EKG Rhythm: Sinus Rhythm (With sinusoidal appearing inferolateral ST depression and T wave inversions) Assessment and Plan - Patient Problems (1) Abnormal EKG Current Visit: Yes Status: Acute Plan to address problem: Patient with chronic alcoholism and seizures, presents following a fall, associated with alcohol intoxication and seizure activity. EKG is abnormal with ST depression and T wave inversions which do not appear to have the morphology of acute ischemia, likely due to underlying severe metabolic abnormality including marked hypomagnesemia of 1.0. We will recommend aggressive and immediate replenishment of potassium and magnesium levels, following which EKG will be repeated. We will also order an echocardiogram for left ventricular function assessment.
[2020-12-14 10:38] LABS: BUN/Creatinine Ratio 24; Blood Urea Nitrogen 24 mg/dL (9-20); Calcium 7.7 mg/dL (8.4-10.2); Hemolysis Index 10
[2020-12-14] MEDS: POTASSIUM CHLORIDE 10 MEQ 10 MEQ/100 ML BAG IV SCH ×6 (10:42→18:12)
--- NOTE | 2020-12-14 12:17 | Progress Note ---
Subjective Date of service: 12/14/20 Interval history: NSGY update: imaging studies reviewed, CT demonstrates small left tentorial SDH without significant mass effect or MLS. Repeat CT head is stable. Recommend PT consultation. If cleared, patient may discharge home. I will arrange for outpatient follow up. Objective - Vital Sign Vital Signs - 12hr 12/14/20 12/14/20 12/14/20 02:31 02:46 03:01 Pulse Rate 112 H 111 H 111 H Respiratory 14 19 22 Rate Blood Pressure 96/51 O2 Sat by Pulse 97 Oximetry 12/14/20 12/14/20 12/14/20 03:15 03:31 03:45 Pulse Rate 112 H 113 H 119 H Respiratory 19 15 22 Rate Blood Pressure 119/83 121/80 109/75 O2 Sat by Pulse Oximetry 12/14/20 12/14/20 12/14/20 04:01 04:15 04:31 Pulse Rate 111 H 114 H 114 H Respiratory 16 18 19 Rate Blood Pressure 121/86 114/74 109/75 O2 Sat by Pulse Oximetry 12/14/20 12/14/20 12/14/20 04:45 05:01 05:15 Pulse Rate 108 H 111 H 106 H Respiratory 17 14 20 Rate Blood Pressure 94/60 109/74 93/66 O2 Sat by Pulse Oximetry 12/14/20 12/14/20 12/14/20 05:31 05:45 06:01 Pulse Rate 104 H 122 H 106 H Respiratory 21 33 H 20 Rate Blood Pressure 109/70 102/65 116/81 O2 Sat by Pulse Oximetry 12/14/20 12/14/20 12/14/20 06:15 06:31 06:45 Pulse Rate 110 H 105 H 110 H Respiratory 19 13 24 Rate Blood Pressure 114/77 114/77 111/78 O2 Sat by Pulse 99 Oximetry 12/14/20 12/14/20 12/14/20 07:01 07:15 07:31 Pulse Rate 102 H 122 H 118 H Respiratory Rate Blood Pressure 93/72 130/90 91/71 O2 Sat by Pulse 95 95 98 Oximetry 12/14/20 12/14/20 12/14/20 07:45 08:00 08:15 Pulse Rate 108 H 114 H Respiratory Rate Blood Pressure 119/82 109/75 99/70 O2 Sat by Pulse 91 93 99 Oximetry 1012/14/20 12/14/20 08:31 09:01 09:31 Pulse Rate 117 H 115 H Respiratory 12 16 Rate Blood Pressure 99/70 111/75 119/80 O2 Sat by Pulse 97 92 Oximetry 12/14/20 12/14/20 12/14/20 10:01 10:31 11:01 Pulse Rate 114 H 116 H 111 H Respiratory 17 16 17 Rate Blood Pressure 114/81 105/77 105/77 O2 Sat by Pulse 93 91 92 Oximetry - Laboratory Findings CBC and BMP: 12/13/20 23:01 12/14/20 10:01 Abnormal Lab Findings: Abnormal Labs 12/13/20 12/13/20 12/13/20 23:01 23:01 23:23 WBC 14.9 H Hgb 17.4 H Hct 48.0 H MCV 108 H MCH 39 H MCHC 36 H RDW 17.0 H Lymph % (Auto) 4.1 L [place] % (Auto) 8.1 H Lymph # (Auto) 0.6 L [place] # (Auto) 1.2 H Seg Neutrophils % 87.3 H Seg Neutrophils # 13.0 H Sodium 134 L Potassium 2.5 L* D Chloride 84.4 L Carbon Dioxide 32 H BUN Glucose 142 H Calcium Magnesium Total Bilirubin 2.80 H Direct Bilirubin 0.9 H AST 72 H Troponin T 0.091 H Albumin 3.1 L LDL Cholesterol Direct Lipase Urine WBC (Auto) 12/13/20 12/14/20 12/14/20 Unknown 06:11 07:24 WBC Hgb Hct MCV MCH MCHC RDW Lymph % (Auto) [place] % (Auto) Lymph # (Auto) [place] # (Auto) Seg Neutrophils % Seg Neutrophils # Sodium 133 L Potassium 2.6 L* Chloride 86.6 L Carbon Dioxide 34 H BUN 22 H Glucose 126 H Calcium 7.8 L Magnesium 1.00 L Total Bilirubin Direct Bilirubin AST Troponin T 0.074 H Albumin LDL Cholesterol Direct 43 L Lipase 7 L Urine WBC (Auto) 27.0 H 12/14/20 10:01 WBC Hgb Hct MCV MCH MCHC RDW Lymph % (Auto) [place] % (Auto) Lymph # (Auto) [place] # (Auto) Seg Neutrophils % Seg Neutrophils # Sodium 133 L Potassium 2.6 L* Chloride 85.7 L Carbon Dioxide 34 H BUN 24 H Glucose 117 H Calcium 7.7 L Magnesium Total Bilirubin Direct Bilirubin AST Troponin T 0.072 H Albumin LDL Cholesterol Direct Lipase Urine WBC (Auto)
[2020-12-14] MEDS: POTASSIUM CHLORIDE ER 20 MEQ TAB PO SCH ×2 (14:13→18:03)
[2020-12-14] MEDS: PHENYTOIN 100 MG CAPSULE.ER PO SCH ×2 (14:13→23:11)
[2020-12-14] MEDS: MORPHINE 4 MG/1 ML INJ IV PRN (22:12)
[2020-12-15] MEDS: cefTRIAXone/NS 2 GM/100 ML 2 GM/100 ML BAG IV SCH (04:29)
[2020-12-15] MEDS: LORazepam 2 MG/ML VIAL IV PRN ×2 (04:30→10:15)
[2020-12-15] MEDS: MORPHINE 4 MG/1 ML INJ IV PRN ×3 (04:30→21:53)
[2020-12-15 06:35] LABS: BUN/Creatinine Ratio 29; Blood Urea Nitrogen 23 mg/dL (9-20); Calcium 7.6 mg/dL (8.4-10.2); Hemolysis Index 16
[2020-12-15] MEDS: PHENYTOIN 100 MG CAPSULE.ER PO SCH ×3 (06:43→21:52)
--- NOTE | 2020-12-15 08:36 | Progress Note ---
Assessment and Plan Assessment and plan: --Small subdural hematoma, acute[stable] Current Visit: Yes Status: Acute Plan to address problem: Small subdural hematoma, ED discussed with neurosurgeon, recommend repeat CT head in 6 hours If no increase in SDH, patient may be discharged from his standpoint, continue to monitor 12/13/2020 CT head without contrast probable tiny left tentorial subdural hematoma Mild to moderate micro angiopathy unchanged 12/14/[address] head without contrast; after 6 hours; Stable appearance of very small left tentorial subdural hematoma. No new findings Cleared for discharge from neurosurgical point with outpatient follow-up --History of falls Current Visit: Yes Status: Acute Plan to address problem: Fall precautions, fall secondary to alcohol intoxication CT cervical spine; no acute abnormality Chest x-ray no acute findings CT head without contrast probable tiny left tentorial subdural hematoma Mild to moderate micro angiopathy unchanged --Severe hypokalemia; 2.6 -3.1 Current Visit: Yes Status: Acute Replenished with oral and IV KCl, Significantly improved Today potassium is 3.1, replenished with oral KCl Monitor electrolytes -- Hyponatremia; Current Visit: No Status: Acute Gradually improving, continue normal saline Monitor electrolytes --Severe hypomagnesemia 1.0-2. 0 Current Visit: Yes Status: Acute Replenished with magnesium sulfate 4 g IV, monitor electrolytes Improved today within normal limits, monitor electrolytes --Elevated troponin/NSTEMI Current Visit: Yes Status: Acute Nonspecific elevation of troponin, will closely monitor Patient does not complain of any chest pain or shortness of breath Abnormal EKG, cardiology evaluation and recommendations noted and appreciated Continue current management --Leukocytosis Current Visit: Yes Status: Acute Secondary to urinary tract infection, empiric antibiotics, follow urine cultures --Urinary tract infection Current Visit: Yes Status: Acute Urinary tract infection per urinalysis, empiric antibiotics, follow cultures --Chronic alcohol use Current Visit: Yes Status: Acute Strongly advised to quit alcohol intake and advised alcohol rehabilitation Advised to join alcohol Anonymous Thiamine folic acid --Alcohol withdrawal Current Visit: Yes Status: Acute Closely monitor for any alcohol withdrawal symptoms On CIWA protocol if needed -- DVT prophylaxis Current Visit: No Status: Acute SCDs, no pharmacological anticoagulation due to small subdural hematoma We will closely monitor the patient and adjust the management as needed Follow consultants evaluation and recommendations Closely monitor electrolytes potassium and magnesium PT evaluation noted and appreciated, recommend home health PT Plan of care reviewed with the patient and his nurse Brief history and hospital course: 65-year-old male patient with significant past medical history of chronic alcohol use, seizure disorder presented to the emergency room with history of fall and neck pain, patient was brought by the EMS and neck collar. CT cervical spine no acute abnormalities noted,However CT head without contrast show small left tentorial subdural hematoma Neurosurgery evaluated, repeat CT scan did not show any new changes, cleared for discharge follow-up outpatient for further evaluation. 12/15/2020; Patient on CIWA protocol, Hypokalemia, replaced with KCl PT recommended home health PT, Discharge a.m. if medically stable Neurosurgeon cleared for discharge follow-up as outpatient History Interval history: I have seen and examined the patient at the bedside Patient's chart and medications reviewed Patient feels better symptoms complains of neck pain No other complaints No tremulousness no withdrawal symptoms Hospitalist Physical - Constitutional Vitals: Temp Pulse Resp BP Pulse Ox 98.9 F 114 H 17 116/66 91 12/15/20 05:48 12/15/20 05:48 12/15/20 05:48 12/15/20 05:48 12/15/20 05:48 General appearance: Present: no acute distress, well-nourished - EENT Eyes: Present: PERRL, EOM intact - Neck Neck: Present: supple, normal ROM - Respiratory Respiratory effort: normal Respiratory: bilateral: diminished, negative: rales, rhonchi, wheezing - Cardiovascular Rhythm: regular Heart Sounds: Present: S1 & S2 - Extremities Extremities: no ischemia, No edema - Abdominal General gastrointestinal: soft, non-tender, non-distended, normal bowel sounds - Integumentary Integumentary: Present: clear, warm - Psychiatric Psychiatric: appropriate mood/affect, cooperative - Neurologic Neurologic: moves all extremities HEART Score - HEART Score Troponin: Troponin T 0.072 ng/mL (0.00-0.029) H 12/14/20 10:01 Results - Labs CBC & Chem 7: 12/13/20 23:01 12/15/20 04:23 Labs: Laboratory Last Values WBC 14.9 K/mm3 (4.5-11.0) H 12/13/20 23:01 RBC 4.44 M/mm3 (3.65-5.03) 12/13/20 23: Hgb 17.4 gm/dl (11.8-15.2) H 12/13/20 23: Hct 48.0 % (35.5-45.6) H 12/13/20 23: MCV 108 fl (84-94) H 12/13/20 23: MCH 39 pg (28-32) H 12/13/20 23: MCHC 36 % (32-34) H 12/13/20 23: RDW 17.0 % (13.2-15.2) H 12/13/20 23: Plt Count 217 K/mm3 (140-440) 12/13/20 23: Lymph % (Auto) 4.1 % (13.4-35.0) L 12/13/20 23: [place] % (Auto) 8.1 % (0.0-7.3) H 12/13/20 23: [place] % (Auto) 0.0 % (0.0-4.3) 12/13/20 23: Baso % (Auto) 0.5 % (0.0-1.8) 12/13/20 23: Lymph # (Auto) 0.6 K/mm3 (1.2-5.4) L 12/13/20 23: [place] # (Auto) 1.2 K/mm3 (0.0-0.8) H 12/13/20 23:01 [place] # (Auto) 0.0 K/mm3 (0.0-0.4) 12/13/20 23: Baso # (Auto) 0.1 K/mm3 (0.0-0.1) 12/13/20 23: Seg Neutrophils % 87.3 % (40.0-70.0) H 12/13/20 23: Seg Neutrophils # 13.0 K/mm3 (1.8-7.7) H 12/13/20 23: PT 13.7 Sec. (12.2-14.9) 12/13/20 23: INR 1.00 (0.87-1.13) 12/13/20 23: APTT 27.4 Sec. (24.2-36.6) 12/13/20 23:01 Sodium 135 mmol/L (137-145) L 12/15/20 04:23 Potassium 3.1 mmol/L (3.6-5.0) L 12/15/20 04:23 Chloride 95.6 mmol/L (98-107) L 12/15/20 04:23 Carbon Dioxide 31 mmol/L (22-30) H 12/15/20 04:23 Anion Gap 12 mmol/L 12/15/20 04:23 BUN 23 mg/dL (9-20) H 12/15/20 04:23 Creatinine 0.8 mg/dL (0.8-1.3) 12/15/20 04:23 Estimated GFR > 60 ml/min 12/15/20 04:23 BUN/Creatinine Ratio 29 % 12/15/20 04:23 Glucose 96 mg/dL (75-100) 12/15/20 04:23 Calcium 7.6 mg/dL (8.4-10.2) L 12/15/20 04:23 Phosphorus 2.90 mg/dL (2.5-4.5) 12/14/20 07:24 Magnesium 2.00 mg/dL (1.7-2.3) 12/15/20 04:23 Total Bilirubin 2.80 mg/dL (0.1-1.2) H 12/13/20 23:01 Direct Bilirubin 0.9 mg/dL (0-0.2) H 12/13/20 23:01 Indirect Bilirubin 1.9 mg/dL 12/13/20 23:01 AST 72 units/L (5-40) H 12/13/20 23:01 ALT 48 units/L (7-56) 12/13/20 23:01 Alkaline Phosphatase 118 units/L (35-129) 12/13/20 23:01 Troponin T 0.072 ng/mL (0.00-0.029) H 12/14/20 10:01 Total Protein 6.3 g/dL (6.3-8.2) 12/13/20 23:01 Albumin 3.1 g/dL (3.9-5) L 12/13/20 23:01 Albumin/Globulin Ratio 1.0 % 12/13/20 23:01 Triglycerides 65 mg/dL (2-149) 12/14/20 06:11 Cholesterol 113 mg/dL (50-199) 10/10/21 06:11 LDL Cholesterol Direct 43 mg/dL (50-130) L 12/14/20 06:11 HDL Cholesterol 58 mg/dL (40-59) 12/14/20 06:11 Cholesterol/HDL Ratio 1.94 % 12/14/20 06:11 Lipase 7 units/L (13-60) L 12/14/20 07:24 Urine Color (Yellow) 12/13/20 Unknown Urine Turbidity Clear (Clear) 12/13/20 Unknown Urine pH 7.0 (5.0-7.0) 12/13/20 Unknown Ur Specific [place] 1.021 (1.003-1.030) 12/13/20 Unknown Urine Protein 100 mg/dl mg/dL (Negative) 12/13/20 Unknown Urine Glucose (UA) 50 mg/dL (Negative) 12/13/20 Unknown Urine Ketones Neg mg/dL (Negative) 12/13/20 Unknown Urine Blood Neg (Negative) 12/13/20 Unknown Urine Nitrite Neg (Negative) 12/13/20 Unknown Urine Bilirubin Neg (Negative) 12/13/20 Unknown Urine Urobilinogen 4.0 mg/dL (<2.0) 12/13/20 Unknown Ur Leukocyte Esterase Tr (Negative) 12/13/20 Unknown Urine WBC (Auto) 27.0 /HPF (0.0-6.0) H 12/13/20 Unknown Urine RBC (Auto) 5.0 /HPF (0.0-6.0) 12/13/20 Unknown U Epithel Cells (Auto) < 1.0 /HPF (0-13.0) 12/13/20 Unknown Urine Bacteria (Auto) 1+ /HPF (Negative) 12/13/20 Unknown Hyaline Casts 1 /LPF 12/13/20 Unknown Urine Mucus Few /HPF 12/13/20 Unknown Urine Opiates Screen Presumptive negative 12/13/20 Unknown Urine Methadone Screen Presumptive negative 12/13/20 Unknown Ur Barbiturates Screen Presumptive negative 12/13/20 Unknown Ur Phencyclidine Scrn Presumptive negative 12/13/20 Unknown Ur Amphetamines Screen Presumptive negative 12/13/20 Unknown U Benzodiazepines Scrn Presumptive negative 12/13/20 Unknown Urine Cocaine Screen Presumptive negative 12/13/20 Unknown U Marijuana (THC) Screen Presumptive negative 12/13/20 Unknown Drugs of Abuse Note Disclamer 12/13/20 Unknown Plasma/Serum Alcohol < 0.01 % (0-0.07) 12/14/20 07:24 Microbiology: Microbiology 12/14/20 01:46 Peripheral/Venous Blood Culture - Preliminary NO GROWTH AFTER 24 HOURS 12/14/20 01:46 Peripheral/Venous Blood Culture - Preliminary NO GROWTH AFTER 24 HOURS Active Medications - Current Medications Current Medications: Generic Name Dose Route Start Last Admin Trade Name Freq PRN Reason Stop Dose Admin Famotidine 20 mg 12/14/20 10:00 12/14/20 23:10 Famotidine 20 Mg Tab PO 20 mg BID DG Administration Folic Acid 1 mg 12/14/20 10:00 12/14/20 10:09 Folic Acid 1 Mg Tab PO 1 mg QDAY DG Administration Sodium Chloride 1,000 mls @ 100 mls/hr 12/14/20 08:00 Nacl 0.9% 1000 Ml IV DIRECT DG Ceftriaxone Sodium 2 gm in 100 mls @ 200 mls/hr 12/15/20 02:00 12/15/20 05:41 Rocephin/Ns 2 Gm/100 Ml IV Infused Q24H GD Infusion Protocol Levetiracetam 500 mg 12/14/20 10:00 12/14/20 23:11 Levetiracetam 500 Mg Tab PO 500 mg BID DG Administration Lorazepam 2 mg 12/14/20 07:16 12/15/20 04:30 Lorazepam 2 Mg/Ml Vial IV 2 mg Q1HR PRN Administration CIWA-Ar 8-15 Lorazepam 4 mg 12/14/20 07:16 Lorazepam 2 Mg/Ml Vial IV Q1HR PRN CIWA-Ar 16-25 Morphine Sulfate 2 mg 12/14/20 14:01 12/15/20 04:30 Morphine 4 Mg/1 Ml Inj IV 2 mg Q6H PRN Administration Pain , Severe (7-10) Multivitamins 1 each 12/14/20 10:00 12/14/20 10:10 Multivitamins ,Therapeutic Tab PO 1 each QDAY DG Administration Phenytoin 100 mg 12/14/20 14:00 12/15/20 06:43 Phenytoin 100 Mg Capsule.Er PO 100 mg Q8HR DG Administration Potassium Chloride 40 meq 12/15/20 09:00 Potassium Chloride Er 20 Meq Tab PO 12/15/20 12:01 Q3H DG Thiamine HCl 100 mg 12/14/20 10:00 12/14/20 10:09 Thiamine 100 Mg Tab PO 100 mg QDAY DG Administration
[2020-12-15] MEDS: levETIRAcetam 500 MG TAB PO SCH ×2 (10:08→21:52)
[2020-12-15] MEDS: FOLIC ACID 1 MG TAB PO SCH (10:08)
[2020-12-15] MEDS: THIAMINE 100 MG TAB PO SCH (10:09)
[2020-12-15] MEDS: MULTIVITAMINS ,THERAPEUTIC TAB PO SCH (10:09)
[2020-12-15] MEDS: FAMOTIDINE 20 MG TAB PO SCH ×2 (10:09→21:52)
[2020-12-15] MEDS: POTASSIUM CHLORIDE ER 20 MEQ TAB PO SCH ×2 (10:09→14:34)
[2020-12-15] MEDS: SODIUM CHLORIDE 0.9% 1000 ML 1,000 ML IV SCH ×2 (10:15→22:00)
--- NOTE | 2020-12-15 11:05 | Electrocardiograph Report ---
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
--- NOTE | 2020-12-15 11:48 | Progress Note ---
Assessment and Plan - Patient Problems (1) Abnormal EKG Current Visit: Yes Status: Acute Plan to address problem: 65-year-old man with long history of alcohol abuse and seizure disorder, admitted following a fall, suspected seizure episode. EKG was abnormal on pr esentation, in the setting of a markedly low potassium and a markedly low magnesium. An echocardiogram has been ordered for left ventricular function assessment, and echocardiogram will be reassessed after electrolyte abnormalities are corrected. Subjective Date of service: 12/15/20 Interval history: Patient is comfortable, no new cardiac complaints, no acute distress. On monitoring engineer, he is in a sinus tachycardia at 111. Potassium today is still low at 3.1, but magnesium level is improved at 2.0. Objective Vital Signs Temp Pulse Resp BP BP Pulse Ox 12/15/20 08:43 98.2 F 113 H 18 129/89 93 12/15/20 05:48 98.9 F 114 H 17 116/66 91 12/15/20 01:21 109 H 18 145/77 98 12/15/20 01:11 145/77 97 12/15/20 01:01 145/77 93 12/15/20 00:17 99.0 F 113 H 18 124/84 93 12/14/20 22:11 93 12/14/20 22:03 99.0 F 120 H 19 123/85 93 12/14/20 21:40 110/71 96 12/14/20 21:34 110/71 95 12/14/20 21:31 126/89 96 12/14/20 21:21 126/89 93 12/14/20 21:20 98.7 F 72 20 154/79 100 12/14/20 21:11 126/89 95 12/14/20 21:01 126/89 96 12/14/20 20:51 111/80 90 12/14/20 20:23 126/89 96 12/14/20 19:50 126 H 19 111/80 12/14/20 19:01 110/71 92 12/14/20 18:01 107 H 22 118/80 94 12/14/20 17:01 111 H 19 117/75 94 12/14/20 16:01 111 H 18 121/83 94 12/14/20 15:01 123 H 21 97/41 12/14/20 14:31 110 H 18 113/80 93 12/14/20 14:01 112 H 20 88/50 95 12/14/20 13:31 109 H 18 88/50 94 12/14/20 13:01 110 H 17 88/50 92 12/14/20 12:31 109 H 18 127/104 95 12/14/20 12:01 95 H 19 105/77 93 12/14/20 11:53 98.3 F - Physical Examination General: Cachectic, Other (Appears unkempt) HEENT: Positive: PERRL Neck: Positive: neck supple Cardiac: Positive: Regular Rhythm Lungs: Positive: Decreased Breath Sounds Neuro: Positive: Grossly Intact Abdomen: Positive: Soft Skin: Positive: Clear Extremities: Absent: edema - Labs and Meds Comprehensive Metabolic Panel 12/14/20 12/15/20 Range/Units 18:15 04:23 Sodium 135 L (137-145) mmol/L Potassium 3.4 L D 3.1 L (3.6-5.0) mmol/L Chloride 95.6 L (98-107) mmol/L Carbon Dioxide 31 H (22-30) mmol/L BUN 23 H (9-20) mg/dL Creatinine 0.8 (0.8-1.3) mg/dL Glucose 96 (75-100) mg/dL Calcium 7.6 L (8.4-10.2) mg/dL
[2020-12-15] MEDS ORDERED: POTASSIUM CHLORIDE ER 20 MEQ TAB PO SCH (15:00)
--- NOTE | 2020-12-15 17:24 | Consultation ---
History of Present Illness Consult date: 12/15/20 Reason for Consult: sdh Chief complaint: altered mental status History of present illness: Mayank Alonso is a 65 y/o Male that was admitted to [facility] a few days ago for management of AMS. He has a history of alcohol dependence. He had a ground level fall, which prompted his presentation. CT head revealed a small tentorial SDH without mass effect or MLS. He was admitted for stabilization and further management. Repeat CT head stable. Presently, he denies significant headache, nausea or vomiting. Past History Past Medical History: hypertension, seizures, other (Pancreatitis, chronic alcohol use,) Past Surgical History: Other (Right knee surgery, hip surgery, lung injury) Social history: alcohol abuse. denies: smoking Family history: no significant family history Medications and Allergies Allergies Allergy/AdvReac Type Severity Reaction Status Date / Time olanzapine [From Zyprexa] Allergy Nausea Verified 02/15/19 18:02 Home Medications Medication Instructions Recorded Confirmed Last Taken Type Ibuprofen [Motrin 600 MG tab] 600 mg PO Q8H PRN #10 tablet 04/04/19 12/15/20 12/05/20 Rx Multivitamin Tab [Multiple Vitamin 1 each PO DAILY #30 tablet 04/04/19 12/15/20 12/13/20 Rx TAB (Theragran)] amLODIPine 5 mg PO QDAY #30 tablet 04/04/19 12/15/20 12/05/20 Rx atenoloL [Tenormin] 50 mg PO QDAY #30 tablet 04/04/19 12/15/20 12/05/20 Rx chlordiazePOXIDE [Librium] 25 mg PO Q8H #7 capsule 04/04/19 12/15/20 12/05/20 Rx chlordiazePOXIDE [Librium] 25 mg PO Q8H PRN #8 capsule 01/04/20 12/15/20 Rx Phenytoin [Dilantin] 100 mg PO Q8HR #90 capsule 09/07/20 12/15/20 12/14/20 Rx levETIRAcetam [Keppra TAB] 500 mg PO BID #60 tablet 09/07/20 12/15/20 12/14/20 Rx levETIRAcetam [Keppra TAB] 500 mg PO BID #60 tablet 10/18/20 12/15/20 12/14/20 Rx Promethazine [Phenergan] 25 mg PO Q6HR PRN #10 tab 10/20/20 12/15/20 12/13/20 Rx Ciprofloxacin HCl 500 mg PO BID 10 Days #20 tablet 12/14/20 Unknown Rx Active Meds: Active Medications Famotidine (Famotidine 20 Mg Tab) 20 mg PO BID [facility] Last Admin: 12/15/20 10:09 Dose: 20 mg Documented by: Folic Acid (Folic Acid 1 Mg Tab) 1 mg PO QDAY [facility] Last Admin: 12/15/20 10:08 Dose: 1 mg Documented by: Sodium Chloride (Nacl 0.9% 1000 Ml) 1,000 mls @ 100 mls/hr IV DIRECT [facility] Last Admin: 12/15/20 10:15 Dose: 100 mls/hr Documented by: Ceftriaxone Sodium (Rocephin/Ns 2 Gm/100 Ml) 2 gm in 100 mls @ 200 mls/hr IV Q24H [facility]; Protocol Last Infusion: 12/15/20 05:41 Dose: Infused Documented by: Levetiracetam (Levetiracetam 500 Mg Tab) 500 mg PO BID [facility] Last Admin: 12/15/20 10:08 Dose: 500 mg Documented by: Lorazepam (Lorazepam 2 Mg/Ml Vial) 2 mg IV Q1HR PRN PRN Reason: CIWA-Ar 8-15 Last Admin: 12/15/20 10:15 Dose: 2 mg Documented by: Lorazepam (Lorazepam 2 Mg/Ml Vial) 4 mg IV Q1HR PRN PRN Reason: CIWA-Ar 16-25 Morphine Sulfate (Morphine 4 Mg/1 Ml Inj) 2 mg IV Q6H PRN PRN Reason: Pain , Severe (7-10) Last Admin: 12/15/20 14:35 Dose: 2 mg Documented by: Multivitamins (Multivitamins ,Therapeutic Tab) 1 each PO QDAY [facility] Last Admin: 12/15/20 10:09 Dose: 1 each Documented by: Phenytoin (Phenytoin 100 Mg Capsule.Er) 100 mg PO Q8HR [facility] Last Admin: 12/15/20 14:35 Dose: 100 mg Documented by: Thiamine HCl (Thiamine 100 Mg Tab) 100 mg PO QDAY [facility] Last Admin: 12/15/20 10:09 Dose: 100 mg Documented by: Review of Systems All systems: negative (what is specified in HPI) Physical Examination - Vital Signs Vital Signs: Vital Signs Pulse Resp 112 H 14 12/14/20 02:31 12/14/20 02:31 - Physical Exam Narrative exam: seen and examined no acute distress lethargic NC/AT RRR breathing non-labored abdomen soft no cyanosis or clubbing A&Ox3 CNII-XII Intact motor strength full sensation intact no drift Results - Laboratory Findings CBC and BMP: 12/13/20 23:01 12/15/20 04:23 Abnormal Lab Findings: Abnormal Labs 12/13/20 12/13/20 12/13/20 23:01 23:01 23:23 WBC 14.9 H Hgb 17.4 H Hct 48.0 H MCV 108 H MCH 39 H MCHC 36 H RDW 17.0 H Lymph % (Auto) 4.1 L [place] % (Auto) 8.1 H Lymph # (Auto) 0.6 L [place] # (Auto) 1.2 H Seg Neutrophils % 87.3 H Seg Neutrophils # 13.0 H Sodium 134 L Potassium 2.5 L* D Chloride 84.4 L Carbon Dioxide 32 H BUN Glucose 142 H Calcium Magnesium Total Bilirubin 2.80 H Direct Bilirubin 0.9 H AST 72 H Troponin T 0.091 H Albumin 3.1 L LDL Cholesterol Direct Lipase Urine WBC (Auto) 12/13/20 12/14/20 12/14/20 Unknown 06:11 07:24 WBC Hgb Hct MCV MCH MCHC RDW Lymph % (Auto) [place] % (Auto) Lymph # (Auto) [place] # (Auto) Seg Neutrophils % Seg Neutrophils # Sodium 133 L Potassium 2.6 L* Chloride 86.6 L Carbon Dioxide 34 H BUN 22 H Glucose 126 H Calcium 7.8 L Magnesium 1.00 L Total Bilirubin Direct Bilirubin AST Troponin T 0.074 H Albumin LDL Cholesterol Direct 43 L Lipase 7 L Urine WBC (Auto) 27.0 H 12/14/20 12/14/20 12/15/20 10:01 18:15 04:23 WBC Hgb Hct MCV MCH MCHC RDW Lymph % (Auto) [place] % (Auto) Lymph # (Auto) [place] # (Auto) Seg Neutrophils % Seg Neutrophils # Sodium 133 L 135 L Potassium 2.6 L* 3.4 L D 3.1 L Chloride 85.7 L 95.6 L Carbon Dioxide 34 H 31 H BUN 24 H 23 H Glucose 117 H Calcium 7.7 L 7.6 L Magnesium Total Bilirubin Direct Bilirubin AST Troponin T 0.072 H Albumin LDL Cholesterol Direct Lipase Urine WBC (Auto) 12/15/20 09:13 WBC Hgb Hct MCV MCH MCHC RDW Lymph % (Auto) [place] % (Auto) Lymph # (Auto) [place] # (Auto) Seg Neutrophils % Seg Neutrophils # Sodium Potassium Chloride Carbon Dioxide BUN Glucose Calcium Magnesium Total Bilirubin Direct Bilirubin AST Troponin T 0.055 H D Albumin LDL Cholesterol Direct Lipase Urine WBC (Auto) Assessment and Plan 65 y/o M w/ acute tentorial SDH, no mass effect -no surgical intervention -clear for PT/OT evaluation and discharge planning -he may follow up as an outpatient as needed
[2020-12-16] MEDS: LORazepam 2 MG/ML VIAL IV PRN (01:15)
[2020-12-16] MEDS: cefTRIAXone/NS 2 GM/100 ML 2 GM/100 ML BAG IV SCH (02:35)
[2020-12-16] MEDS: PHENYTOIN 100 MG CAPSULE.ER PO SCH ×3 (05:56→21:15)
[2020-12-16 06:51] LABS: Blood Urea Nitrogen 17 mg/dL (9-20); Calcium 7.8 mg/dL (8.4-10.2); Hemolysis Index 7
[2020-12-16 07:02] LABS: BUN/Creatinine Ratio 24
[2020-12-16] MEDS: THIAMINE 100 MG TAB PO SCH (09:00)
[2020-12-16] MEDS: FOLIC ACID 1 MG TAB PO SCH (09:00)
[2020-12-16] MEDS: MULTIVITAMINS ,THERAPEUTIC TAB PO SCH (09:00)
[2020-12-16] MEDS: FAMOTIDINE 20 MG TAB PO SCH ×2 (09:00→21:15)
[2020-12-16] MEDS: levETIRAcetam 500 MG TAB PO SCH ×2 (09:00→21:15)
[2020-12-16] MEDS: MORPHINE 4 MG/1 ML INJ IV PRN ×3 (09:01→21:18)
--- NOTE | 2020-12-16 09:34 | Progress Note ---
<ILA PERKINS - Last Filed: 12/16/20 11:39> Assessment and Plan Abnormal EKG likely due to metabolic abnormality including potassium of 2.5 and magnesium of 1.0. s/p Fall associated with alcoholism and observed seizure activity CT head revealed a small tentorial SDH as per Neurology Chronic Alcoholism Seizure disorder Recommendations: Magnesium repletion. Will repeat an ECG following electrolyte correction. An echocardiogram will be done for LVEF assessment. Subjective Date of service: 12/16/20 Interval history: No cardiac complaints. Potassium has improved to 3.8 but serum magnesium is low at 1.5. Objective Vital Signs Temp Pulse Pulse Resp BP BP Pulse Ox 12/16/20 09:01 20 12/16/20 07:33 98.0 F 113 H 22 140/96 93 12/16/20 04:57 98.6 F 117 H 18 129/98 94 12/15/20 23:25 99.5 F 18 12/15/20 23:00 112 H 18 116/70 98 12/15/20 22:00 119 H 18 93 12/15/20 19:42 99.0 F 119 H 18 135/95 92 12/15/20 17:20 98.6 F 116 H 18 160/98 95 12/15/20 10:00 93 - Physical Examination General: No Apparent Distress, Cachectic HEENT: Positive: PERRL Neck: Positive: neck supple Cardiac: Positive: Tachycardia Lungs: Positive: Decreased Breath Sounds Neuro: Positive: Grossly Intact - Labs and Meds Comprehensive Metabolic Panel 12/16/20 Range/Units 04:45 Sodium 135 L (137-145) mmol/L Potassium 3.8 D (3.6-5.0) mmol/L Chloride 99.0 (98-107) mmol/L Carbon Dioxide 24 D (22-30) mmol/L BUN 17 (9-20) mg/dL Creatinine 0.7 L (0.8-1.3) mg/dL Glucose 69 L (75-100) mg/dL Calcium 7.8 L (8.4-10.2) mg/dL <KIERRA CONTRERAS - Last Filed: 12/21/20 17:54> Subjective Interval history: I SAW THIS PT & AGREE WITH THE Dx & Tx PLAN.
[2020-12-16] MEDS ORDERED: MAGNESIUM SULFATE 2 GM/50 ML BAG IV NR (11:00)
[2020-12-16] MEDS ORDERED: POTASSIUM PHOSPHATE 30 MMOL in SODIUM CHLORIDE 0.9% 500 ML 500 ML IV NR (11:00)
--- NOTE | 2020-12-16 23:12 | Progress Note ---
Assessment and Plan --Acute Small subdural hematoma, stable Neurosurgery was consulted in the ER, patient was monitored with serial CT head No need for surgical intervention 12/13/2020 CT head without contrast probable tiny left tentorial subdural hematoma Mild to moderate micro angiopathy unchanged 12/14/[address] head without contrast; after 6 hours; Stable appearance of very small left tentorial subdural hematoma. No new findings Cleared for discharge from neurosurgical point with outpatient follow-up --History of falls Fall precautions, fall secondary to alcohol intoxication CT cervical spine; no acute abnormality Chest x-ray no acute findings CT head without contrast probable tiny left tentorial subdural hematoma Mild to moderate micro angiopathy unchanged --Severe hypokalemia; 2.6 -3.1 Replenished with oral and IV KCl, Significantly improved Today potassium is 3.1, replenished with oral KCl Monitor electrolytes -- Hyponatremia; Gradually improving, continue normal saline Monitor electrolytes --Severe hypomagnesemia 1.0-2. 0 Replenished with magnesium sulfate IV, monitor electrolytes --Elevated troponin/NSTEMI Nonspecific elevation of troponin, will closely monitor Patient does not complain of any chest pain or shortness of breath Abnormal EKG, cardiology evaluation and recommendations noted and appreciated Continue current management --Leukocytosis Secondary to urinary tract infection, empiric antibiotics, follow urine cultures --Urinary tract infection Urinary tract infection per urinalysis, empiric antibiotics, follow cultures --Chronic alcohol use Strongly advised to quit alcohol intake and advised alcohol rehabilitation Advised to join alcohol Anonymous Thiamine folic acid --Alcohol withdrawal Closely monitor for any alcohol withdrawal symptoms On CIWA protocol if needed --History of seizure disorder, continue Keppra twice daily -- DVT prophylaxis SCDs, no pharmacological anticoagulation due to small subdural hematoma Brief history and hospital course: 65-year-old male patient with significant past medical history of chronic alcohol use, seizure disorder presented to the emergency room with history of fall and neck pain, patient was brought by the EMS and neck collar. CT cervical spine no acute abnormalities noted,However CT head without contrast show small left tentorial subdural hematoma. Neurosurgery evaluated, repeat CT scan did not show any new changes, cleared for discharge follow-up outpatient for further evaluation. 12/15/2020; Patient on CIWA protocol, Hypokalemia, replaced with KCl PT recommended home health PT, Discharge a.m. if medically stable Neurosurgeon cleared for discharge follow-up as outpatient 12/16/20: Continue on CIWA protocol, replete magnesium and phosphate, follow clinically, order for 2D echo -result pending. Closely monitor electrolytes potassium and magnesium PT evaluation noted and appreciated, recommend home health PT Subjective Date of service: 12/16/20 Interval history: Patient seen and examined. Medical records and medication list reviewed. No acute event overnight noted by the RN. Patient complains of anxiety and back pain. Patient is tolerating diet. Discussed plan of care at bedside with patient. Objective - Exam Narrative Exam: General appearance: Present: no acute distress, well-nourished - EENT Eyes: Present: PERRL, EOM intact - Neck Neck: Present: supple, normal ROM - Respiratory Respiratory effort: normal Respiratory: bilateral: diminished, negative: rales, rhonchi, wheezing - Cardiovascular Rhythm: regular Heart Sounds: Present: S1 & S2 - Extremities Extremities: no ischemia, No edema - Abdominal General gastrointestinal: soft, non-tender, non-distended, normal bowel sounds - Integumentary Integumentary: Present: clear, warm - Psychiatric Psychiatric: appropriate mood/affect, cooperative - Neurologic Neurologic: moves all extremities - Constitutional Vitals: Vital Signs - 12hr 12/16/20 12/16/20 13:50 15:25 Temperature 97.6 F Pulse Rate 111 H Respiratory 20 18 Rate Blood Pressure 139/96 O2 Sat by Pulse 93 Oximetry - Labs CBC & Chem 7: 12/13/20 23:01 12/18/20 04:50 Labs: Abnormal lab results 12/16/20 Range/Units 04:45 Sodium 135 L (137-145) mmol/L Creatinine 0.7 L (0.8-1.3) mg/dL Glucose 69 L (75-100) mg/dL Calcium 7.8 L (8.4-10.2) mg/dL Phosphorus 2.00 L (2.5-4.5) mg/dL Magnesium 1.50 L (1.7-2.3) mg/dL HEART Score - HEART Score Troponin: Troponin T 0.055 ng/mL (0.00-0.029) H D 12/15/20 09:13
[2020-12-17] MEDS: cefTRIAXone/NS 2 GM/100 ML 2 GM/100 ML BAG IV SCH (01:19)
[2020-12-17] MEDS: MORPHINE 4 MG/1 ML INJ IV PRN ×3 (07:43→22:21)
[2020-12-17] MEDS: PHENYTOIN 100 MG CAPSULE.ER PO SCH ×3 (07:47→22:13)
[2020-12-17] MEDS: MULTIVITAMINS ,THERAPEUTIC TAB PO SCH (09:44)
[2020-12-17] MEDS: FOLIC ACID 1 MG TAB PO SCH (09:44)
[2020-12-17] MEDS: levETIRAcetam 500 MG TAB PO SCH ×2 (09:44→22:13)
[2020-12-17] MEDS: FAMOTIDINE 20 MG TAB PO SCH ×2 (09:44→22:14)
[2020-12-17] MEDS: THIAMINE 100 MG TAB PO SCH (09:44)
--- NOTE | 2020-12-17 11:25 | Progress Note ---
Assessment and Plan Abnormal EKG likely due to metabolic abnormality including potassium of 2.5 and magnesium of 1.0. s/p Fall associated with alcoholism and observed seizure activity CT head revealed a small tentorial SDH as per Neurology Chronic Alcoholism Seizure disorder Recommendations: Will repeat an ECG following electrolyte correction. An echocardiogram has been done for LVEF assessment. Result is pending Subjective Date of service: 12/17/20 Interval history: Patient complains of dizziness. No cardiac complaints. There were no labs done this morning. Objective Vital Signs Temp Pulse Resp BP BP Pulse Ox 12/17/20 07:43 22 12/17/20 07:31 98.0 F 16 137/96 12/17/20 05:47 98.4 F 112 H 18 146/80 100 12/17/20 05:46 98.4 F 18 12/17/20 02:33 96 12/17/20 00:29 97.6 F 122 H 18 140/98 93 12/16/20 21:14 98.5 F 119 H 18 145/105 93 12/16/20 15:25 97.6 F 111 H 18 139/96 93 12/16/20 13:50 20 - Physical Examination General: No Apparent Distress, Cachectic HEENT: Positive: PERRL Neck: Positive: neck supple Cardiac: Positive: Tachycardia Lungs: Positive: Decreased Breath Sounds Neuro: Positive: Grossly Intact Abdomen: Positive: Soft Extremities: Absent: edema
[2020-12-17] MEDS: LOSARTAN 25 MG TAB PO SCH (16:58)
[2020-12-17] MEDS: carvediloL 6.25 MG TAB PO SCH ×2 (16:58→22:13)
[2020-12-17] MEDS: LORazepam 2 MG/ML VIAL IV PRN (20:45)
--- NOTE | 2020-12-17 23:53 | Progress Note ---
Assessment and Plan --Acute Small subdural hematoma, stable Neurosurgery was consulted in the ER, patient was monitored with serial CT head No need for surgical intervention 12/13/2020 CT head without contrast probable tiny left tentorial subdural hematoma Mild to moderate micro angiopathy unchanged 12/14/[address] head without contrast; after 6 hours; Stable appearance of very small left tentorial subdural hematoma. No new findings Cleared for discharge from neurosurgical point with outpatient follow-up --History of falls Fall precautions, fall secondary to alcohol intoxication CT cervical spine; no acute abnormality Chest x-ray no acute findings CT head without contrast probable tiny left tentorial subdural hematoma Mild to moderate micro angiopathy unchanged --Acute systolic CHF with Ef 30-35% Cardiology following, recommended medical management --Severe hypokalemia; 2.6 -3.1 Replenished with oral and IV KCl, Significantly improved Today potassium is 3.1, replenished with oral KCl Monitor electrolytes -- Hyponatremia; Gradually improving, continue normal saline Monitor electrolytes --Severe hypomagnesemia 1.0-2. 0 Replenished with magnesium sulfate IV, monitor electrolytes --Elevated troponin/NSTEMI Nonspecific elevation of troponin, will closely monitor Patient does not complain of any chest pain or shortness of breath Abnormal EKG, cardiology evaluation and recommendations noted and appreciated Continue current management --Leukocytosis Secondary to urinary tract infection, empiric antibiotics, follow urine cultures --Urinary tract infection Urinary tract infection per urinalysis, empiric antibiotics, follow cultures --Chronic alcohol use Strongly advised to quit alcohol intake and advised alcohol rehabilitation Advised to join alcohol Anonymous Thiamine folic acid --Alcohol withdrawal Closely monitor for any alcohol withdrawal symptoms On CIWA protocol if needed --History of seizure disorder, continue Keppra twice daily -- DVT prophylaxis SCDs, no pharmacological anticoagulation due to small subdural hematoma Brief history and hospital course: 65-year-old male patient with significant past medical history of chronic alcohol use, seizure disorder presented to the emergency room with history of fall and neck pain, patient was brought by the EMS and neck collar. CT cervical spine no acute abnormalities noted,However CT head without contrast show small left tentorial subdural hematoma. Neurosurgery evaluated, repeat CT scan did not show any new changes, cleared for discharge follow-up outpatient for further evaluation. 12/15/2020; Patient on CIWA protocol, Hypokalemia, replaced with KCl PT recommended home health PT, Discharge a.m. if medically stable Neurosurgeon cleared for discharge follow-up as outpatient 12/16/20: Continue on CIWA protocol, replete magnesium and phosphate, follow clinically, order for 2D echo -result pending. Closely monitor electrolytes potassium and magnesium PT evaluation noted and appreciated, recommend home health PT 12/17/20: 2D echo suggestive of chronic cardiomyopathy with EF 30 to 35%. Continue supportive care, if clinically stable possible discharge tomorrow. Subjective Date of service: 12/17/20 Interval history: Patient seen and examined. Medical records and medication list reviewed. No acute event overnight noted by the RN. Patient still has back pain. Patient is tolerating diet. Discussed plan of care at bedside with patient. Objective - Exam Narrative Exam: General appearance: Present: no acute distress, well-nourished - EENT Eyes: Present: PERRL, EOM intact - Neck Neck: Present: supple, normal ROM - Respiratory Respiratory effort: normal Respiratory: bilateral: diminished, negative: rales, rhonchi, wheezing - Cardiovascular Rhythm: regular Heart Sounds: Present: S1 & S2 - Extremities Extremities: no ischemia, No edema - Abdominal General gastrointestinal: soft, non-tender, non-distended, normal bowel sounds - Integumentary Integumentary: Present: clear, warm - Psychiatric Psychiatric: appropriate mood/affect, cooperative - Neurologic Neurologic: moves all extremities - Constitutional Vitals: Vital Signs - 12hr 12/17/20 12/17/20 12/17/20 14:00 14:05 16:09 Temperature 98.0 F Pulse Rate 111 H Respiratory 20 20 Rate Blood Pressure 133/93 Blood Pressure [Right] O2 Sat by Pulse 95 96 Oximetry 12/17/20 12/17/20 12/17/20 19:41 22:13 23:29 Temperature 98.6 F 98.4 F Pulse Rate 107 H 107 H 72 Respiratory 18 18 Rate Blood Pressure 132/90 132/90 Blood Pressure 121/68 [Right] O2 Sat by Pulse 95 Oximetry - Labs CBC & Chem 7: 12/13/20 23:01 12/18/20 04:50 HEART Score - HEART Score Troponin: Troponin T 0.055 ng/mL (0.00-0.029) H D 12/15/20 09:13
[2020-12-18] MEDS: cefTRIAXone/NS 2 GM/100 ML 2 GM/100 ML BAG IV SCH (02:52)
[2020-12-18] MEDS: PHENYTOIN 100 MG CAPSULE.ER PO SCH ×2 (05:33→22:09)
[2020-12-18] MEDS: SODIUM CHLORIDE 0.9% 1000 ML 1,000 ML IV SCH (05:33)
[2020-12-18 05:39] LABS: Blood Urea Nitrogen 9 mg/dL (9-20); Calcium 7.9 mg/dL (8.4-10.2); Hemolysis Index 6
[2020-12-18] MEDS: MORPHINE 4 MG/1 ML INJ IV PRN (05:41)
[2020-12-18 05:42] LABS: BUN/Creatinine Ratio 15
[2020-12-18] MEDS: THIAMINE 100 MG TAB PO SCH (10:01)
[2020-12-18] MEDS: carvediloL 6.25 MG TAB PO SCH ×2 (10:01→22:09)
[2020-12-18] MEDS: levETIRAcetam 500 MG TAB PO SCH ×2 (10:01→22:09)
[2020-12-18] MEDS: FOLIC ACID 1 MG TAB PO SCH (10:01)
[2020-12-18] MEDS: LOSARTAN 25 MG TAB PO SCH (10:01)
[2020-12-18] MEDS: FAMOTIDINE 20 MG TAB PO SCH ×2 (10:01→22:09)
[2020-12-18] MEDS: MULTIVITAMINS ,THERAPEUTIC TAB PO SCH (10:01)
[2020-12-18] MEDS ORDERED: MAGNESIUM SULFATE 2 GM/50 ML BAG IV ONE (10:30)
--- NOTE | 2020-12-18 11:42 | Discharge Summary ---
Providers - Providers Date of Admission: 12/14/20 07:13 Date of discharge: 12/19/20 Attending physician: ROSE OROZCO 12/14/20 07:14 Consult to Physician [CONS] Stat Comment: Consulting Provider: ERNESTO HOGUE II Physician Instructions: Reason For Exam: subdural hem 12/14/20 07:15 Consult to Physician [CONS] Stat Comment: Consulting Provider: DOUG PALAFOX Physician Instructions: Reason For Exam: EKG changes 12/14/20 17:50 Physical Therapy Evaluation and Treat [CONS] Routine Comment: Reason For Exam: Recurrent falls/chronic alcohol use/DC needs Primary care physician: THREADER Hospitalization Condition: Undetermined Hospital course: Brief history and hospital course: 65-year-old male patient with significant past medical history of chronic alcohol use, seizure disorder presented to the emergency room with history of fall and neck pain, patient was brought by the EMS and neck collar. CT cervical spine no acute abnormalities noted,However CT head without contrast show small left tentorial subdural hematoma. Neurosurgery evaluated, repeat CT scan did not show any new changes, cleared for discharge follow-up outpatient for further evaluation. 12/15/2020; Patient on CIWA protocol, Hypokalemia, replaced with KCl PT recommended home health PT, Discharge a.m. if medically stable Neurosurgeon cleared for discharge follow-up as outpatient 12/16/20: Continue on CIWA protocol, replete magnesium and phosphate, follow clinically, order for 2D echo -result pending. Closely monitor electrolytes potassium and magnesium PT evaluation noted and appreciated, recommend home health PT 12/17/20: 2D echo suggestive of chronic cardiomyopathy with EF 30 to 35%. Continue supportive care, if clinically stable possible discharge tomorrow. 12/18/20; patient still complains of shortness of breath, continue guideline directed heart failure therapy including losartan, carvedilol, baby aspirin and spironolactone. Magnesium noted to be 1.3, continue to replete 12/19/20; replete electrolytes, clinically stable. Cardiology cleared for discharge. Patient will be discharged home in stable condition with outpatient follow-up. Discharge diagnosis and management: --Acute Small subdural hematoma, stable Neurosurgery was consulted in the ER, patient was monitored with serial CT head No need for surgical intervention 12/13/2020 CT head without contrast probable tiny left tentorial subdural hematoma Mild to moderate micro angiopathy unchanged 12/14/[address] head without contrast; after 6 hours; Stable appearance of very small left tentorial subdural hematoma. No new findings Cleared for discharge from neurosurgical point with outpatient follow-up --History of falls Fall precautions, fall secondary to alcohol intoxication CT cervical spine; no acute abnormality Chest x-ray no acute findings CT head without contrast probable tiny left tentorial subdural hematoma Mild to moderate micro angiopathy unchanged --Acute systolic CHF with Ef 30-35% Cardiology following, recommended medical management --Severe hypokalemia; 2.6 -3.1 Replenished with oral and IV KCl, Significantly improved -- Hyponatremia; improved with gentle IV fluid hydration --Severe hypomagnesemia 1.0-2. 0 Replenished with magnesium sulfate IV --Elevated troponin/NSTEMI Nonspecific elevation of troponin, will closely monitor Patient does not complain of any chest pain or shortness of breath Abnormal EKG, cardiology evaluation and recommendations noted and appreciated Continue medical management per cardiology --Leukocytosis Secondary to urinary tract infection, Treated with empiric antibiotics, --Urinary tract infection Urinary tract infection per urinalysis, Treated with empiric antibiotics, --Chronic alcohol use Strongly advised to quit alcohol intake and advised alcohol rehabilitation Advised to join alcohol Anonymous Placed on thiamine folic acid --Alcohol withdrawal Closely monitored for any alcohol withdrawal symptoms ORDERED [facility] protocol if needed --History of seizure disorder, continue Keppra twice daily -- DVT prophylaxis SCDs, no pharmacological anticoagulation due to small subdural hematoma Disposition: HOME HEALTH CARE SERVICE Final Discharge Diagnosis (Prints w/discharge instructions): --s/p falls with SDH. --Severe hypokalemia; 2.6 -3.1. -- Hyponatremia;. --Severe hypomagnesemia 1.0-2.0. --Elevated troponin/NSTEMI type 2. --Alcohol withdrawal. --Chronic alcohol use. --Urinary tract infection. --Leukocytosis. --Abnormal EKG likely due to metabolic abnormality including potassium of 2.5 and magnesium of 1.0. --Seizure disorder. --Acute systolic CHFrEF 30-35% Time spent for discharge: 34 minutes Core Measure Documentation - Palliative Care Palliative Care/ Comfort Measures: Not Applicable - Core Measures Any of the following diagnoses?: heart failure - Heart Failure Discharge Requirements BONNY/ARB for LVSD if EF <40%: Yes Beta kalpana at discharge: Yes Exam - Physical Exam Narrative exam: General appearance: Present: no acute distress, well-nourished - EENT Eyes: Present: PERRL, EOM intact - Neck Neck: Present: supple, normal ROM - Respiratory Respiratory effort: normal Respiratory: bilateral: diminished, negative: rales, rhonchi, wheezing - Cardiovascular Rhythm: regular Heart Sounds: Present: S1 & S2 - Extremities Extremities: no ischemia, No edema - Abdominal General gastrointestinal: soft, non-tender, non-distended, normal bowel sounds - Integumentary Integumentary: Present: clear, warm - Psychiatric Psychiatric: appropriate mood/affect, cooperative - Neurologic Neurologic: moves all extremities - Constitutional Vitals: Temp Pulse Resp BP Pulse Ox 97.1 F L 98 H 18 139/95 95 12/18/20 07:56 12/18/20 07:56 12/18/20 07:41 12/18/20 07:41 12/18/20 03:34 Plan Activity: advance as tolerated Weight Bearing Status: Non-Weight Bearing Diet: low fat, low salt Special Instructions: restrict fluid intake to (1.2L per day ), record daily weights, record daily BP diary Additional Instructions: Follow-up with Dr. Storey in 1 week for further outpatient management and follow-up Follow up with: PRIMARY CAREMD [Primary Care Provider] - 3-5 Days IZABEL STOREY MD [Staff Physician] - 7 Days Forms: Discharge Signature Page Prescriptions: Spironolactone [Aldactone] 25 mg PO QDAY #30 tablet carvediloL [Coreg] 6.25 mg PO BID #60 tablet Losartan [Cozaar] 25 mg PO QDAY #30 tablet Aspirin EC [Halfprin EC] 81 mg PO QDAY #30 tablet Furosemide [Lasix] 20 mg PO QDAY #30 tablet
--- NOTE | 2020-12-18 12:04 | Progress Note ---
Assessment and Plan - Patient Problems (1) Abnormal EKG Current Visit: Yes Status: Acute Plan to address problem: 65-year-old man with seizure disorder, noncompliant, presented with an apparent seizure episode. Comorbidities include chronic alcoholism. On presentation was found with an abnormal ECG associated with marked hypokalemia and marked hypomagnesemia. Electrolyte abnormalities have been corrected. Additional cardiac testing with an echocardiogram shows a dilated cardiomyopathy, left ventricular ejection fraction 30%. The chronicity of the cardiomyopathy is uncertain. Patient has no cardiac related symptoms at this time. We have initiated guideline directed heart failure therapy including losartan, carvedilol, baby aspirin and spironolactone. Patient is recommended to follow-up in our office in 5 to 7 days, where we will continue outpatient management of the asymptomatic cardiomyopathy including myocardial perfusion imaging and future device therapies as indicated. Subjective Date of service: 12/18/20 Interval history: Patient is comfortable, no cardiac complaints. Discharge planning is in progress. Objective Vital Signs Temp Pulse Resp BP BP Pulse Ox 12/18/20 07:56 97.1 F L 98 H 12/18/20 07:41 18 139/95 12/18/20 03:34 98.6 F 104 H 18 121/88 95 12/17/20 23:29 98.4 F 72 18 121/68 12/17/20 22:13 107 H 132/90 12/17/20 22:00 96 12/17/20 19:41 98.6 F 107 H 18 132/90 95 12/17/20 16:09 98.0 F 111 H 20 133/93 96 12/17/20 14:05 20 12/17/20 14:00 95 - Physical Examination General: No Apparent Distress, Cachectic HEENT: Positive: PERRL Neck: Positive: neck supple Cardiac: Positive: Reg Rate and Rhythm Lungs: Positive: Decreased Breath Sounds Neuro: Positive: Grossly Intact Abdomen: Positive: Soft Skin: Positive: Clear Extremities: Absent: edema - Labs and Meds Comprehensive Metabolic Panel 12/18/20 Range/Units 04:50 Sodium 131 L (137-145) mmol/L Potassium 3.7 (3.6-5.0) mmol/L Chloride 95.4 L (98-107) mmol/L Carbon Dioxide 24 (22-30) mmol/L BUN 9 (9-20) mg/dL Creatinine 0.6 L (0.8-1.3) mg/dL Glucose 90 (75-100) mg/dL Calcium 7.9 L (8.4-10.2) mg/dL
[2020-12-18] MEDS: ASPIRIN EC 81 MG TAB PO SCH (15:59)
[2020-12-18] MEDS ORDERED: IBUPROFEN 600 MG TAB PO ONE (22:15)
[2020-12-19] MEDS: cefTRIAXone/NS 2 GM/100 ML 2 GM/100 ML BAG IV SCH (04:00)
[2020-12-19] MEDS: PHENYTOIN 100 MG CAPSULE.ER PO SCH ×3 (05:54→21:25)
[2020-12-19] MEDS: ASPIRIN EC 81 MG TAB PO SCH (09:59)
[2020-12-19] MEDS: LOSARTAN 25 MG TAB PO SCH (10:00)
[2020-12-19] MEDS: MULTIVITAMINS ,THERAPEUTIC TAB PO SCH (10:00)
[2020-12-19] MEDS: THIAMINE 100 MG TAB PO SCH (10:00)
[2020-12-19] MEDS: SPIRONOLACTONE 25 MG TAB PO SCH (10:00)
[2020-12-19] MEDS: FAMOTIDINE 20 MG TAB PO SCH ×2 (10:00→21:25)
[2020-12-19] MEDS: levETIRAcetam 500 MG TAB PO SCH ×2 (10:00→21:25)
[2020-12-19] MEDS: FOLIC ACID 1 MG TAB PO SCH (10:00)
[2020-12-19] MEDS: carvediloL 6.25 MG TAB PO SCH ×2 (10:00→21:25)
--- NOTE | 2020-12-19 13:26 | Progress Note ---
Assessment and Plan - Patient Problems (1) Abnormal EKG Current Visit: Yes Status: Acute Plan to address problem: 65-year-old man with seizure disorder, noncompliant, presented with an apparent seizure episode. Comorbidities include chronic alcoholism. On presentation was found with an abnormal ECG associated with marked hypokalemia and marked hypomagnesemia. Electrolyte abnormalities have been corrected. Additional cardiac testing with an echocardiogram shows a dilated cardiomyopathy, left ventricular ejection fraction 30%. The chronicity of the cardiomyopathy is uncertain. Patient has no cardiac related symptoms at this time. We have initiated guideline directed heart failure therapy including losartan, carvedilol, baby aspirin and spironolactone. Patient is recommended to follow-up in our office in 5 to 7 days after discharge, where we will continue outpatient management of the asymptomatic cardiomyopathy including myocardial perfusion imaging and future device therapies as indicated. Subjective Date of service: 12/19/20 Interval history: Patient is comfortable, no new cardiac complaints. Objective Vital Signs Temp Pulse Resp BP Pulse Ox 12/19/20 07:33 98.5 F 94 H 20 129/87 96 12/19/20 03:36 96.7 F L 99 H 18 144/103 95 12/18/20 22:09 104 H 135/96 12/18/20 22:00 95 12/18/20 21:35 100.3 F H 104 H 18 135/96 97 - Physical Examination General: No Apparent Distress, Cachectic HEENT: Positive: PERRL Neck: Positive: neck supple Cardiac: Positive: Reg Rate and Rhythm Lungs: Positive: Decreased Breath Sounds Neuro: Positive: Grossly Intact Abdomen: Positive: Soft Skin: Positive: Clear Extremities: Absent: edema
[2020-12-19] MEDS: MORPHINE 4 MG/1 ML INJ IV PRN (23:33)
[2020-12-20] MEDS: oxyCODONE /ACETAMINOPHEN 5-325MG TAB PO PRN ×2 (00:01→07:53)
[2020-12-20] MEDS: PHENYTOIN 100 MG CAPSULE.ER PO SCH ×2 (07:22→07:23)
--- NOTE | 2020-12-20 08:57 | Progress Note ---
Assessment and Plan --Acute Small subdural hematoma, stable Neurosurgery was consulted in the ER, patient was monitored with serial CT head No need for surgical intervention 12/13/2020 CT head without contrast probable tiny left tentorial subdural hematoma Mild to moderate micro angiopathy unchanged 12/14/[address] head without contrast; after 6 hours; Stable appearance of very small left tentorial subdural hematoma. No new findings Cleared for discharge from neurosurgical point with outpatient follow-up --History of falls Fall precautions, fall secondary to alcohol intoxication CT cervical spine; no acute abnormality Chest x-ray no acute findings CT head without contrast probable tiny left tentorial subdural hematoma Mild to moderate micro angiopathy unchanged --Acute systolic CHF with Ef 30-35% Cardiology following, recommended medical management --Severe hypokalemia; 2.6 -3.1 Replenished with oral and IV KCl, Significantly improved Today potassium is 3.1, replenished with oral KCl Monitor electrolytes -- Hyponatremia; Gradually improving, continue normal saline Monitor electrolytes --Severe hypomagnesemia 1.0-2. 0 Replenished with magnesium sulfate IV, monitor electrolytes --Elevated troponin/NSTEMI Nonspecific elevation of troponin, will closely monitor Patient does not complain of any chest pain or shortness of breath Abnormal EKG, cardiology evaluation and recommendations noted and appreciated Continue current management --Leukocytosis Secondary to urinary tract infection, empiric antibiotics, follow urine cultures --Urinary tract infection Urinary tract infection per urinalysis, empiric antibiotics, follow cultures --Chronic alcohol use Strongly advised to quit alcohol intake and advised alcohol rehabilitation Advised to join alcohol Anonymous Thiamine folic acid --Alcohol withdrawal Closely monitor for any alcohol withdrawal symptoms On CIWA protocol if needed --History of seizure disorder, continue Keppra twice daily -- DVT prophylaxis SCDs, no pharmacological anticoagulation due to small subdural hematoma Brief history and hospital course: 65-year-old male patient with significant past medical history of chronic alcohol use, seizure disorder presented to the emergency room with history of fall and neck pain, patient was brought by the EMS and neck collar. CT cervical spine no acute abnormalities noted,However CT head without contrast show small left tentorial subdural hematoma. Neurosurgery evaluated, repeat CT scan did not show any new changes, cleared for discharge follow-up outpatient for further evaluation. 12/15/2020; Patient on CIWA protocol, Hypokalemia, replaced with KCl PT recommended home health PT, Discharge a.m. if medically stable Neurosurgeon cleared for discharge follow-up as outpatient 12/16/20: Continue on CIWA protocol, replete magnesium and phosphate, follow clinically, order for 2D echo -result pending. Closely monitor electrolytes potassium and magnesium PT evaluation noted and appreciated, recommend home health PT 12/17/20: 2D echo suggestive of chronic cardiomyopathy with EF 30 to 35%. Continue supportive care, if clinically stable possible discharge tomorrow. 12/18/20; patient still complains of shortness of breath, continue guideline directed heart failure therapy including losartan, carvedilol, baby aspirin and spironolactone. Magnesium noted to be 1.3, continue to replete Subjective Date of service: 12/18/20 Interval history: Patient seen and examined. Medical records and medication list reviewed. No acute event overnight noted by the RN. SOB improving. Patient is tolerating diet. Discussed plan of care at bedside with patient. Objective - Exam Narrative Exam: General appearance: Present: no acute distress, well-nourished - EENT Eyes: Present: PERRL, EOM intact - Neck Neck: Present: supple, normal ROM - Respiratory Respiratory effort: normal Respiratory: bilateral: diminished, negative: rales, rhonchi, wheezing - Cardiovascular Rhythm: regular Heart Sounds: Present: S1 & S2 - Extremities Extremities: no ischemia, No edema - Abdominal General gastrointestinal: soft, non-tender, non-distended, normal bowel sounds - Integumentary Integumentary: Present: clear, warm - Psychiatric Psychiatric: appropriate mood/affect, cooperative - Neurologic Neurologic: moves all extremities - Constitutional Vitals: Vital Signs - 12hr 12/19/20 12/19/20 12/19/20 21:25 22:00 23:21 Temperature 98.2 F Pulse Rate 89 102 H Respiratory 18 Rate Blood Pressure 113/72 111/70 O2 Sat by Pulse 98 94 Oximetry 12/20/20 12/20/20 04:15 07:43 Temperature 98.5 F 98.6 F Pulse Rate 95 H 92 H Respiratory 18 16 Rate Blood Pressure 145/96 139/91 O2 Sat by Pulse 92 95 Oximetry - Labs CBC & Chem 7: 12/13/20 23:01 12/18/20 04:50 HEART Score - HEART Score Troponin: Troponin T 0.055 ng/mL (0.00-0.029) H D 12/15/20 09:13
[2020-12-20] MEDS: LOSARTAN 25 MG TAB PO SCH (10:26)
[2020-12-20] MEDS: ASPIRIN EC 81 MG TAB PO SCH (10:26)
[2020-12-20] MEDS: FOLIC ACID 1 MG TAB PO SCH (10:26)
[2020-12-20] MEDS: MULTIVITAMINS ,THERAPEUTIC TAB PO SCH (10:26)
[2020-12-20] MEDS: SPIRONOLACTONE 25 MG TAB PO SCH (10:26)
[2020-12-20] MEDS: FAMOTIDINE 20 MG TAB PO SCH (10:26)
[2020-12-20] MEDS: carvediloL 6.25 MG TAB PO SCH (10:26)
[2020-12-20] MEDS: THIAMINE 100 MG TAB PO SCH (10:27)
[2020-12-20] MEDS: levETIRAcetam 500 MG TAB PO SCH (10:27)
[2020-12-20 11:45] VITALS: BP 110/78
--- NOTE | 2020-12-24 14:21 | Electrocardiograph Report ---
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
== END 2020-12-20 12:38 | disposition home health service (06) | DRG 85 ==
LOC: ED 21:45 → 3A 12-14 07:13 → 4A 12-14 19:55
PROVIDERS: ADMIT Internal Medicine; ATTEND Internal Medicine
DX: S06.5X0A Traumatic subdural hemorrhage without loss of consciousness, initial encounter (principal); I21.A1 Myocardial infarction type 2; I50.21 Acute systolic (congestive) heart failure; E87.1 Hypo-osmolality and hyponatremia; N39.0 Urinary tract infection, site not specified; F10.239 Alcohol dependence with withdrawal, unspecified; W18.39XA Other fall on same level, initial encounter; Y93.89 Activity, other specified; Y92.89 Other specified places as the place of occurrence of the external cause; Y99.8 Other external cause status; H54.8 Legal blindness, as defined in USA; E87.6 Hypokalemia; E83.42 Hypomagnesemia; E86.0 Dehydration; S00.93XA Contusion of unspecified part of head, initial encounter; G40.909 Epilepsy, unspecified, not intractable, without status epilepticus; I11.0 Hypertensive heart disease with heart failure
CPT/HCPCS: 36415; 70450; 71045; 72125; 80048; 80061; 80076; 80307; 80320; 81001; 83690; 83735; 84100; 84132; 84484; 85025; 85610; 85730; 87040; 87086; 93005; 93306; G0378; G0480; J0696; J2060; J2270; J2405; J3475; J3480; J7030; J7040

== ENCOUNTER 2021-01-27 14:21 | Emergency (ER) | payer SELFPAY ==
--- NOTE | 2021-01-27 16:19 | Cat Scan Report ---
CT HEAD WITHOUT CONTRAST INDICATION / CLINICAL INFORMATION: fall. Head injury TECHNIQUE: Axial imaging performed from the skull apex through the skull base without the use of cont rast. Sagittal and coronal reformatted images. All CT scans at this location are performed using CT dose reduction for ALARA by means of automated exposure control. COMPARISON: 12/14/2020 FINDINGS: CEREBRAL PARENCHYMA: No acute parenchymal abnormality. Nonspecific chronic white matter changes are a gain noted. HEMORRHAGE: None. EXTRA-AXIAL SPACES: Normal in size and morphology for the patient's age. Previously described small s ubdural hemorrhage along the left tentorium is no longer seen. VENTRICULAR SYSTEM: Normal in size and morphology for the patient's age. MIDLINE SHIFT OR HERNIATION: None. CEREBELLUM / BRAINSTEM: No significant abnormality. CALVARIUM: No significant abnormality. ORBITS: Normal as visualized. Chronic right medial orbital wall fracture is noted. PARANASAL SINUSES / MASTOID AIR CELLS: Normal as visualized. SOFT TISSUES of HEAD: No significant abnormality. ADDITIONAL FINDINGS: None. IMPRESSION: No acute intracranial abnormality. Signer Name: Francisco Rivers Jr, MD Signed: 01/27/2021 4:15 PM Workstation Name: [id number]
--- NOTE | 2021-01-27 16:48 | Emergency Department Report ---
ED Fall HPI - General Chief Complaint: Fall Stated Complaint: FALL Time Seen by Provider: 01/27/21 14:39 Source: patient, EMS Mode of arrival: Stretcher - History of Present Illness Initial Comments: 65-year-old male presents to ED following trip and fall at gas station. Unknown LOC. Patient complaining of headache. MD Complaint: fall -: This afternoon Fall From: standing Place Fall Occurred: other Loss of Consciousness: unsure Symptoms Prior to Fall: none Location: head Severity: moderate Context: tripped/slipped Associated Symptoms: headache. denies: chest paint, shortness of breath - Related Data Previous Rx's Medication Instructions Recorded Last Taken Type Multivitamin Tab [Multiple Vitamin 1 each PO DAILY #30 tablet 04/04/19 12/13/20 Rx TAB (Theragran)] Phenytoin [Dilantin] 100 mg PO Q8HR #90 capsule 09/07/20 12/14/20 Rx levETIRAcetam [Keppra TAB] 500 mg PO BID #60 tablet 09/07/20 12/14/20 Rx Aspirin EC [Halfprin EC] 81 mg PO QDAY #30 tablet 12/18/20 Unknown Rx Ciprofloxacin HCl [Ciprofloxacin 500 mg PO BID #10 tablet 12/18/20 Unknown Rx TAB] Folic Acid [Folvite] 1 mg PO QDAY #30 tablet 12/18/20 Unknown Rx Furosemide [Lasix] 20 mg PO QDAY #30 tablet 12/18/20 Unknown Rx Losartan [Cozaar] 25 mg PO QDAY #30 tablet 12/18/20 Unknown Rx Magnesium 200 mg PO DAILY #7 tablet 12/18/20 Unknown Rx Spironolactone [Aldactone] 25 mg PO QDAY #30 tablet 12/18/20 Unknown Rx Thiamine [Vitamin B-1] 100 mg PO QDAY #30 tablet 12/18/20 Unknown Rx carvediloL [Coreg] 6.25 mg PO BID #60 tablet 12/18/20 Unknown Rx Allergies Allergy/AdvReac Type Severity Reaction Status Date / Time olanzapine [From Zyprexa] Allergy Nausea Verified 02/15/19 18:02 ED Review of Systems ROS: Stated complaint: FALL Other details as noted in HPI Comment: All other systems reviewed and negative Respiratory: denies: SOB with exertion Cardiovascular: denies: chest pain Neurological: headache ED Past Medical Hx - Past Medical History Hx Hypertension: Yes Hx Congestive Heart Failure: No Hx Diabetes: No Hx Seizures: Yes Hx Psychiatric Treatment: Yes (anxiety psychosis) Hx Asthma: Yes Hx COPD: No Additional medical history: Pancreatitis. legally blind - Surgical History Additional Surgical History: R knee surgery, left lung injury HIP SURGERY - Social History Smoking Status: Former Smoker - Medications Home Medications: Home Medications Medication Instructions Recorded Confirmed Last Taken Type Multivitamin Tab [Multiple Vitamin 1 each PO DAILY #30 tablet 04/04/19 12/15/20 12/13/20 Rx TAB (Theragran)] Phenytoin [Dilantin] 100 mg PO Q8HR #90 capsule 09/07/20 12/15/20 12/14/20 Rx levETIRAcetam [Keppra TAB] 500 mg PO BID #60 tablet 09/07/20 12/15/20 12/14/20 Rx Aspirin EC [Halfprin EC] 81 mg PO QDAY #30 tablet 12/18/20 Unknown Rx Ciprofloxacin HCl [Ciprofloxacin 500 mg PO BID #10 tablet 12/18/20 Unknown Rx TAB] Folic Acid [Folvite] 1 mg PO QDAY #30 tablet 12/18/20 Unknown Rx Furosemide [Lasix] 20 mg PO QDAY #30 tablet 12/18/20 Unknown Rx Losartan [Cozaar] 25 mg PO QDAY #30 tablet 12/18/20 Unknown Rx Magnesium 200 mg PO DAILY #7 tablet 12/18/20 Unknown Rx Spironolactone [Aldactone] 25 mg PO QDAY #30 tablet 12/18/20 Unknown Rx Thiamine [Vitamin B-1] 100 mg PO QDAY #30 tablet 12/18/20 Unknown Rx carvediloL [Coreg] 6.25 mg PO BID #60 tablet 12/18/20 Unknown Rx ED Physical Exam - General Limitations: No Limitations General appearance: alert, in no apparent distress - Head Head exam: Present: atraumatic, normocephalic - Eye Eye exam: Present: normal appearance, PERRL, EOMI - ENT ENT exam: Present: mucous membranes moist - Neck Neck exam: Present: normal inspection - Respiratory Respiratory exam: Present: normal lung sounds bilaterally. Absent: respiratory distress - Cardiovascular Cardiovascular Exam: Present: regular rate, normal rhythm - GI/Abdominal GI/Abdominal exam: Present: soft. Absent: distended, tenderness - Extremities Exam Extremities exam: Present: normal inspection - Neurological Exam Neurological exam: Present: alert, oriented X3 - Psychiatric Psychiatric exam: Present: normal affect, normal mood - Skin Skin exam: Present: warm, dry, intact, normal color ED Course Vital Signs 01/27/21 01/27/21 14:39 17:08 Temperature 98.2 F Pulse Rate 82 Respiratory 18 Rate Blood Pressure 142/78 [Left] O2 Sat by Pulse 97 97 Oximetry ED Medical Decision Making - Radiology Data Radiology results: report reviewed, image reviewed - Medical Decision Making 65-year-old male presents to ED following fall at a gas station. Vital signs are normal. CT head normal. Patient was given a snack bag which he has eaten. He will be discharged at this time. Outpatient follow-up advised, return precautions given. - Differential Diagnosis Intracranial abnormality, fracture, contusion Critical care attestation.: If time is entered above; I have spent that time in minutes in the direct care of this critically ill patient, excluding procedure time. ED Disposition Clinical Impression: Closed head injury Disposition: HOME / SELF CARE / HOMELESS Is pt being admited?: No Condition: Stable Instructions: Head Injury, Adult, [id number] Referrals: PRIMARY CARE [Primary Care Provider] - 3-5 Days [facility] [Provider Group] - 3-5 Days Time of Disposition: 16:48
[2021-01-27] MEDS: IBUPROFEN 800 MG TAB PO ONE (17:01)
[2021-01-27 17:10] VITALS: BP 142/78
== END 2021-01-27 17:11 | disposition home or self-care (01) ==
LOC: ED 14:21
DX: S09.8XXA Other specified injuries of head, initial encounter (principal); J45.909 Unspecified asthma, uncomplicated; I10 Essential (primary) hypertension; W01.0XXA Fall on same level from slipping, tripping and stumbling without subsequent striking against object, initial encounter; Y93.89 Activity, other specified; Y92.524 Gas station as the place of occurrence of the external cause; Y99.8 Other external cause status; Z98.890 Other specified postprocedural states
CPT/HCPCS: 70450; 99284

== ENCOUNTER 2021-02-13 18:08 | Emergency (ER) | payer SELFPAY ==
[2021-02-13] MEDS ORDERED: LORazepam 1 MG TAB PO ONE (18:41)
[2021-02-13] MEDS ORDERED: levETIRAcetam 500 MG TAB PO ONE (18:41)
--- NOTE | 2021-02-13 18:44 | Emergency Department Report ---
ED Seizure HPI - General Chief Complaint: Neck Pain/Injury Stated Complaint: SI Time Seen by Provider: 02/13/21 18:28 Source: patient, EMS Mode of arrival: Wheelchair Limitations: No Limitations - History of Present Illness Initial Comments: 65-year-old male with a past medical history of seizures, alcohol abuse, anxiety, and schizophrenia presents to the hospital after being picked up from a gas station. Patient states he had a seizure and fell on the ground. Complains of headache and neck pain. He is currently not taking any seizure medication. Last alcoholic drink was 1 beer this morning. Patient has had frequent ER visits for same presentation with history of subdural in December that did not require surgical intervention but has had negative CT head scans since then. - Related Data Previous Rx's Medication Instructions Recorded Last Taken Type Phenytoin [Dilantin] 100 mg PO Q8HR #90 capsule 09/07/20 12/14/20 Rx Aspirin EC [Halfprin EC] 81 mg PO QDAY #30 tablet 12/18/20 Unknown Rx Ciprofloxacin HCl [Ciprofloxacin 500 mg PO BID #10 tablet 12/18/20 Unknown Rx TAB] Furosemide [Lasix] 20 mg PO QDAY #30 tablet 12/18/20 Unknown Rx Losartan [Cozaar] 25 mg PO QDAY #30 tablet 12/18/20 Unknown Rx Spironolactone [Aldactone] 25 mg PO QDAY #30 tablet 12/18/20 Unknown Rx carvediloL [Coreg] 6.25 mg PO BID #60 tablet 12/18/20 Unknown Rx Folic Acid [Folvite] 1 mg PO QDAY #30 tablet 02/13/21 Unknown Rx Magnesium 200 mg PO DAILY #7 tablet 02/13/21 Unknown Rx Multivitamin Tab [Multiple Vitamin 1 each PO DAILY #30 tablet 02/13/21 Unknown Rx TAB (Theragran)] Thiamine [Vitamin B-1] 100 mg PO QDAY #30 tablet 02/13/21 Unknown Rx levETIRAcetam [Keppra TAB] 500 mg PO BID #60 tablet 02/13/21 Unknown Rx Allergies Allergy/AdvReac Type Severity Reaction Status Date / Time olanzapine [From Zyprexa] Allergy Nausea Verified 02/15/19 18:02 ED Review of Systems ROS: Stated complaint: SI Other details as noted in HPI Comment: All other systems reviewed and negative ED Past Medical Hx - Past Medical History Previous Medical History?: Yes Hx Hypertension: Yes Hx Congestive Heart Failure: No Hx Diabetes: No Hx Seizures: Yes Hx Psychiatric Treatment: Yes (anxiety psychosis) Hx Asthma: Yes Hx COPD: No Additional medical history: Pancreatitis. legally blind - Surgical History Past Surgical History?: Yes Additional Surgical History: R knee surgery, left lung injury HIP SURGERY - Social History Smoking Status: Unknown if ever smoked Substance Use Type: None - Medications Home Medications: Home Medications Medication Instructions Recorded Confirmed Last Taken Type Phenytoin [Dilantin] 100 mg PO Q8HR #90 capsule 09/07/20 12/15/20 12/14/20 Rx Aspirin EC [Halfprin EC] 81 mg PO QDAY #30 tablet 12/18/20 Unknown Rx Ciprofloxacin HCl [Ciprofloxacin 500 mg PO BID #10 tablet 12/18/20 Unknown Rx TAB] Furosemide [Lasix] 20 mg PO QDAY #30 tablet 12/18/20 Unknown Rx Losartan [Cozaar] 25 mg PO QDAY #30 tablet 12/18/20 Unknown Rx Spironolactone [Aldactone] 25 mg PO QDAY #30 tablet 12/18/20 Unknown Rx carvediloL [Coreg] 6.25 mg PO BID #60 tablet 12/18/20 Unknown Rx Folic Acid [Folvite] 1 mg PO QDAY #30 tablet 02/13/21 Unknown Rx Magnesium 200 mg PO DAILY #7 tablet 02/13/21 Unknown Rx Multivitamin Tab [Multiple Vitamin 1 each PO DAILY #30 tablet 02/13/21 Unknown Rx TAB (Theragran)] Thiamine [Vitamin B-1] 100 mg PO QDAY #30 tablet 02/13/21 Unknown Rx levETIRAcetam [Keppra TAB] 500 mg PO BID #60 tablet 02/13/21 Unknown Rx ED Physical Exam - General Limitations: No Limitations - Other Other exam information: General: No acute distress Head: Atraumatic Eyes: normal appearance ENT: Moist mucous membranes Neck: Normal appearance, midline upper cervical tenderness Chest: Clear to auscultation bilaterally CV: Regular rate and rhythm Abdomen: Soft, normal bowel sounds, nontender, nondistended, no rebound or guarding Back: Normal inspection Extremity: Normal inspection, full range of motion Neuro: Alert O x 3, no facial asymmetry, speech clear, no gross motor sensory deficit, no true Psych: Appropriate behavior, denies suicidal ideation Skin: No rash ED Course Vital Signs 02/13/21 18:21 Temperature 98.3 F Pulse Rate 70 Respiratory 16 Rate Blood Pressure 160/80 [Left] O2 Sat by Pulse 97 Oximetry ED Medical Decision Making - Lab Data Result diagrams: 02/13/21 18:48 02/13/21 18:48 Lab Results 02/13/21 02/13/21 02/13/21 Range/Units 18:48 18:48 18:48 WBC 6.2 (4.5-11.0) K/mm3 RBC 4.41 (3.65-5.03) M/mm3 Hgb 15.6 H (11.8-15.2) gm/dl Hct 46.5 H (35.5-45.6) % MCV 105 H (84-94) fl MCH 35 H (28-32) pg MCHC 34 (32-34) % RDW 15.3 H (13.2-15.2) % Plt Count 184 (140-440) K/mm3 Lymph % (Auto) 15.9 (13.4-35.0) % Sharkey % (Auto) 13.0 H (0.0-7.3) % Eos % (Auto) 0.6 (0.0-4.3) % Baso % (Auto) 0.6 (0.0-1.8) % Lymph # (Auto) 1.0 L (1.2-5.4) K/mm3 Sharkey # (Auto) 0.8 (0.0-0.8) K/mm3 Eos # (Auto) 0.0 (0.0-0.4) K/mm3 Baso # (Auto) 0.0 (0.0-0.1) K/mm3 Seg Neutrophils % 69.9 (40.0-70.0) % Seg Neutrophils # 4.3 (1.8-7.7) K/mm3 Sodium 128 L (137-145) mmol/L Potassium 3.8 (3.6-5.0) mmol/L Chloride 90.9 L (98-107) mmol/L Carbon Dioxide 19 L (22-30) mmol/L Anion Gap 22 mmol/L BUN 8 L (9-20) mg/dL Creatinine 0.6 L (0.8-1.3) mg/dL Estimated GFR > 60 ml/min BUN/Creatinine Ratio 13 % Glucose 100 (75-100) mg/dL Calcium 8.5 (8.4-10.2) mg/dL Magnesium 1.30 L (1.7-2.3) mg/dL Total Bilirubin 1.20 (0.1-1.2) mg/dL AST 32 (5-40) units/L ALT 21 (7-56) units/L Alkaline Phosphatase 127 (35-129) units/L Total Protein 5.9 L (6.3-8.2) g/dL Albumin 3.8 L (3.9-5) g/dL Albumin/Globulin Ratio 1.8 % Urine Opiates Screen Urine Methadone Screen Ur Barbiturates Screen Ur Phencyclidine Scrn Ur Amphetamines Screen U Benzodiazepines Scrn Urine Cocaine Screen U Marijuana (THC) Screen Drugs of Abuse Note Plasma/Serum Alcohol 0.11 H (0-0.07) % 02/13/21 Range/Units Unknown WBC (4.5-11.0) K/mm3 RBC (3.65-5.03) M/mm3 Hgb (11.8-15.2) gm/dl Hct (35.5-45.6) % MCV (84-94) fl MCH (28-32) pg MCHC (32-34) % RDW (13.2-15.2) % Plt Count (140-440) K/mm3 Lymph % (Auto) (13.4-35.0) % Sharkey % (Auto) (0.0-7.3) % Eos % (Auto) (0.0-4.3) % Baso % (Auto) (0.0-1.8) % Lymph # (Auto) (1.2-5.4) K/mm3 Sharkey # (Auto) (0.0-0.8) K/mm3 Eos # (Auto) (0.0-0.4) K/mm3 Baso # (Auto) (0.0-0.1) K/mm3 Seg Neutrophils % (40.0-70.0) % Seg Neutrophils # (1.8-7.7) K/mm3 Sodium (137-145) mmol/L Potassium (3.6-5.0) mmol/L Chloride (98-107) mmol/L Carbon Dioxide (22-30) mmol/L Anion Gap mmol/L BUN (9-20) mg/dL Creatinine (0.8-1.3) mg/dL Estimated GFR ml/min BUN/Creatinine Ratio % Glucose (75-100) mg/dL Calcium (8.4-10.2) mg/dL Magnesium (1.7-2.3) mg/dL Total Bilirubin (0.1-1.2) mg/dL AST (5-40) units/L ALT (7-56) units/L Alkaline Phosphatase (35-129) units/L Total Protein (6.3-8.2) g/dL Albumin (3.9-5) g/dL Albumin/Globulin Ratio % Urine Opiates Screen Negative Urine Methadone Screen Negative Ur Barbiturates Screen Negative Ur Phencyclidine Scrn Negative Ur Amphetamines Screen Negative U Benzodiazepines Scrn Negative Urine Cocaine Screen Negative U Marijuana (THC) Screen Negative Drugs of Abuse Note Disclamer Plasma/Serum Alcohol (0-0.07) % - Radiology Data Radiology results: report reviewed ct head naf ct cervical spine naf - Medical Decision Making Once again patient presents to the hospital complaints of seizure, head injury, headache, and neck pain. CT head and cervical spine unremarkable. Labs reveal hyponatremia which is likely chronic based on patient's previous laboratory va lues and beer abuse. Patient also has low magnesium likely secondary to alcoholism. Patient treated in the ED with IV magnesium, normal saline, and p.o. Ativan and Keppra. At this time is unclear patient has alcohol withdrawal seizures or primary seizure disorder. Patient has a longstanding history of noncompliance. He will be discharged with meds. Critical Care Time: No Critical care attestation.: If time is entered above; I have spent that time in minutes in the direct care of this critically ill patient, excluding procedure time. ED Disposition Clinical Impression: Alcohol abuse, Seizures, Frequent falls, Hypomagnesemia, Hyponatremia Disposition: 01 HOME / SELF CARE / HOMELESS Is pt being admited?: No Does the pt Need Aspirin: No Condition: Stable Instructions: Seizure, Adult, [id number], Alcohol Abuse and Nutrition Additional Instructions: Take the medication as prescribed. Take Tylenol or Motrin as needed for pain. Follow-up with your doctor or doctor/clinic provided. Return if symptoms worsen as indicated by your discharge instructions. Prescriptions: Folic Acid [Folvite] 1 mg PO QDAY #30 tablet levETIRAcetam [Keppra TAB] 500 mg PO BID #60 tablet Magnesium 200 mg PO DAILY #7 tablet Multivitamin Tab [Multiple Vitamin TAB (Theragran)] 1 each PO DAILY #30 tablet Thiamine [Vitamin B-1] 100 mg PO QDAY #30 tablet Referrals: WALLACE GOMEZ MD [Primary Care Provider[facility] Time of Disposition: 22:55
[2021-02-13 19:29] LABS: Basophils % (Auto) 0.6 % (0.0-1.8); Eosinophils % (Auto) 0.6 % (0.0-4.3); Hematocrit 46.5 % (35.5-45.6); Hemoglobin 15.6 gm/dl (11.8-15.2); Lymphocytes % (Auto) 15.9 % (13.4-35.0); Mean Corpuscular HGB Conc 34 % (32-34); Mean Corpuscular Volume 105 fl (84-94); Monocytes # (Auto) 0.8 K/mm3 (0.0-0.8); Platelet Count 184 K/mm3 (140-440); Red Blood Count 4.41 M/mm3 (3.65-5.03); Red Cell Distribution Width 15.3 % (13.2-15.2)
[2021-02-13 19:33] LABS: Alanine Aminotransferase 21 units/L (7-56); Albumin 3.8 g/dL (3.9-5); Blood Urea Nitrogen 8 mg/dL (9-20); Calcium 8.5 mg/dL (8.4-10.2); Hemolysis Index 21
[2021-02-13] MEDS ORDERED: SODIUM CHLORIDE 0.9% 1000 ML 1,000 ML IV ONE (19:42)
[2021-02-13] MEDS ORDERED: MAGNESIUM SULFATE 2 GM/50 ML BAG IV ONE (19:43)
[2021-02-13 19:46] LABS: BUN/Creatinine Ratio 13
--- NOTE | 2021-02-13 21:10 | Cat Scan Report ---
NONENHANCED CT SCAN OF THE HEAD: INDICATION / CLINICAL INFORMATION: 65 years Male; SEIZURE, CAAL, HEAD INJURY. TECHNIQUE: Routine CT head without contrast. All CT scans at this location are performed using CT dos e reduction for ALARA by means of automated exposure control. COMPARISON: CT scans of the head from 01/27/2021, 12/14/2020 (2) and 02/11/2020 FINDINGS: BRAIN / INTRACRANIAL CONTENTS: No intracranial sequela from the trauma; no scalp hematoma; no fluid l evel in the paranasal sinuses; incidental left supraorbital scalp lipoma No acute hemorrhage, mass effect, midline shift, hydrocephalus, or acute, large territorial infarct. No chronic infarct or focal atrophy. Normal brain volume and ventricular/sulcal size for age. Conflue nt periventricular and focal deep hemispheric white matter low-attenuation areas due to chronic small vessel disease; no space taking lesion in the temporal lobes; however, volume loss in the right medi al temporal lobe; unchanged since 12/14/2020 CRANIOCERVICAL JUNCTION: No significant abnormality. ORBITS: Bony remodeling along the medial wall of right orbit probably from old fracture SINUSES / MASTOIDS: No significant abnormality of the visualized paranasal sinuses or mastoid air deepika ls. ADDITIONAL FINDINGS: None. IMPRESSION: No acute/subacute intracranial sequela from the trauma Signer Name: Allen Sotelo MD Signed: 02/13/2021 9:06 PM Workstation Name: [id number]
--- NOTE | 2021-02-13 21:15 | Cat Scan Report ---
Exam: CT cervical spine History: SZ, HEAD INJURY, NECK PAIN; Technique: Contiguous thin cut axial images obtained through the cervical spine. Sagittal and rebolledo l reconstructions performed by the technologist. All CT scans at this location are performed using CT dose reduction for ALARA by means of automated exposure control. Findings: CT scan of the cervical spine from December 2020 There is no evidence of fracture or traumatic subluxation. Vertebral bodies are normal in height and alignment. Intervertebral disc spaces: C3-C4: Bony spur extending bilaterally more towards right side; right foraminal stenoses; bridging os teophyte C4-C5: Mild to moderate facet joint hypertrophic changes on the right side; neuroforamina are normal C5-C6: Disc height loss; bony spur towards right side; moderate right foraminal stenoses C6-C7: Disc height loss; shallow bony spur Multilevel uncovertebral joint hypertrophic changes Surrounding soft tissues are grossly normal. Impression: No signs of acute bony trauma to the cervical spine. Signer Name: Allen Sotelo MD Signed: 02/13/2021 9:11 PM Workstation Name: [id number]
[2021-02-13 22:12] LABS: Benzodiazepines Screen,Urine Negative; Cannabinoid Screen,Urine Negative; Cocaine Screen,Urine Negative; Methadone Screen,Urine Negative; Opiate Screen,Urine Negative
[2021-02-13 22:27] LABS: Amphetamine Screen,Urine Negative
[2021-02-14 00:41] VITALS: BP 138/86
== END 2021-02-14 00:41 | disposition home or self-care (01) ==
LOC: ED 18:08
DX: R56.9 Unspecified convulsions (principal); E83.42 Hypomagnesemia; E87.1 Hypo-osmolality and hyponatremia; F10.10 Alcohol abuse, uncomplicated; I10 Essential (primary) hypertension; J45.909 Unspecified asthma, uncomplicated; F41.9 Anxiety disorder, unspecified; Z88.8 Allergy status to other drugs, medicaments and biological substances; Z79.82 Long term (current) use of aspirin; Z79.899 Other long term (current) drug therapy; W18.39XA Other fall on same level, initial encounter; Y93.89 Activity, other specified; Y92.89 Other specified places as the place of occurrence of the external cause; Y99.8 Other external cause status; Y90.9 Presence of alcohol in blood, level not specified
CPT/HCPCS: 36415; 70450; 72125; 80053; 80307; 83735; 85025; 96365; 96366; 99284; J3475; J7030; 80320; Q0162; G0480

== ENCOUNTER 2021-03-10 19:30 | Emergency (ER) | payer SELFPAY ==
--- NOTE | 2021-03-10 19:37 | Emergency Department Report ---
ED General Adult HPI - General Stated complaint: SEIZURE Time Seen by Provider: 03/10/21 19:33 - History of Present Illness Initial comments: Patient presents by EMS because of a seizure. Patient has seizure disorder. He is noncompliant with medication. He states he has not had medication in over a month. He feels as though he is going to have a seizure. He states that he then thinks he is going to have a stroke. He reports that he has been in the hospital here for over a month because he had fallen and hit his head and broken his neck. He states that those have not healed. He states that he cannot walk because of gout when I tell him that bones sometimes do not heal well. He then goes on to state that he is worried that his blood pressure is going to be elevated. He then proceeds to tell me that he was admitted to a psychiatric hospital several months and years ago and thinks that he still has psychiatric disease. He states that he needs to be taking care of. Patient admits that he is homeless. He states that he has not really fallen or injured himself lately. He has not had chest pain. He has had no vomiting. He states that he has had no diarrhea or fever. There is no cough or congestion. EMS reports that the patient is homeless, and told them that he wanted a place to eat and rest. - Related Data Previous Rx's Medication Instructions Recorded Last Taken Type Aspirin EC [Halfprin EC] 81 mg PO QDAY #30 tablet 12/18/20 Unknown Rx Furosemide [Lasix] 20 mg PO QDAY #30 tablet 12/18/20 Unknown Rx Losartan [Cozaar] 25 mg PO QDAY #30 tablet 12/18/20 Unknown Rx Spironolactone [Aldactone] 25 mg PO QDAY #30 tablet 12/18/20 Unknown Rx carvediloL [Coreg] 6.25 mg PO BID #60 tablet 12/18/20 Unknown Rx Folic Acid [Folvite] 1 mg PO QDAY #30 tablet 02/13/21 Unknown Rx Magnesium 200 mg PO DAILY #7 tablet 02/13/21 Unknown Rx Multivitamin Tab [Multiple Vitamin 1 each PO DAILY #30 tablet 02/13/21 Unknown Rx TAB (Theragran)] Thiamine [Vitamin B-1] 100 mg PO QDAY #30 tablet 02/13/21 Unknown Rx Phenytoin [Dilantin] 100 mg PO Q8HR #90 capsule 03/10/21 Unknown Rx Allergies Allergy/AdvReac Type Severity Reaction Status Date / Time olanzapine [From Zyprexa] Allergy Nausea Verified 02/15/19 18:02 ED Review of Systems ROS: Stated complaint: SEIZURE Other details as noted in HPI Comment: All other systems reviewed and negative Constitutional: denies: fever Eyes: denies: vision change ENT: denies: throat pain Respiratory: denies: cough Cardiovascular: denies: chest pain Endocrine: denies: unexplained weight loss Gastrointestinal: denies: vomiting Genitourinary: denies: hematuria Musculoskeletal: as per HPI Skin: denies: rash Neurological: denies: headache Psychiatric: anxiety Hematological/Lymphatic: denies: easy bruising ED Past Medical Hx - Past Medical History Hx Hypertension: Yes Hx Congestive Heart Failure: No Hx Diabetes: No Hx Seizures: Yes Hx Psychiatric Treatment: Yes (anxiety psychosis) Hx Asthma: Yes Hx COPD: No Additional medical history: Pancreatitis. legally blind - Surgical History Additional Surgical History: R knee surgery, left lung injury HIP SURGERY - Family History Family history: hypertension - Social History Smoking Status: Unknown if ever smoked Substance Use Type: None - Medications Home Medications: Home Medications Medication Instructions Recorded Confirmed Last Taken Type Aspirin EC [Halfprin EC] 81 mg PO QDAY #30 tablet 12/18/20 Unknown Rx Furosemide [Lasix] 20 mg PO QDAY #30 tablet 12/18/20 Unknown Rx Losartan [Cozaar] 25 mg PO QDAY #30 tablet 12/18/20 Unknown Rx Spironolactone [Aldactone] 25 mg PO QDAY #30 tablet 12/18/20 Unknown Rx carvediloL [Coreg] 6.25 mg PO BID #60 tablet 12/18/20 Unknown Rx Folic Acid [Folvite] 1 mg PO QDAY #30 tablet 02/13/21 Unknown Rx Magnesium 200 mg PO DAILY #7 tablet 02/13/21 Unknown Rx Multivitamin Tab [Multiple Vitamin 1 each PO DAILY #30 tablet 02/13/21 Unknown Rx TAB (Theragran)] Thiamine [Vitamin B-1] 100 mg PO QDAY #30 tablet 02/13/21 Unknown Rx Phenytoin [Dilantin] 100 mg PO Q8HR #90 capsule 03/10/21 Unknown Rx ED Physical Exam - General Limitations: No Limitations, Other (Pulse ox noted and normal by EMS) General appearance: alert, in no apparent distress, other (Disheveled and unkempt) - Head Head exam: Present: atraumatic, normocephalic - Eye Eye exam: Present: normal appearance, EOMI. Absent: scleral icterus - ENT ENT exam: Present: normal orophraynx. Absent: normal external ear exam - Neck Neck exam: Present: normal inspection. Absent: meningismus - Respiratory Respiratory exam: Present: normal lung sounds bilaterally. Absent: respiratory distress - Cardiovascular Cardiovascular Exam: Present: regular rate, normal rhythm - GI/Abdominal GI/Abdominal exam: Present: soft. Absent: tenderness, pulsatile mass - Extremities Exam Extremities exam: Present: normal capillary refill - Back Exam Back exam: Absent: CVA tenderness (R), CVA tenderness (L) - Neurological Exam Neurological exam: Present: alert, oriented X3, CN II-XII intact. Absent: motor sensory deficit - Psychiatric Psychiatric exam: Absent: homicidal ideation, suicidal ideation - Skin Skin exam: Present: warm, dry ED Course - Reevaluation(s) Reevaluation #1: 03/10/21 19:37 EMS was met upon arrival. Patient's glucose was noted for EMS. He was given Dilantin here to prevent seizures which he states he is taken before and discharged. Old records noted. ED Medical Decision Making - Medical Decision Making Patient presented by EMS with multiple issues and complaints. He reportedly told them that he wanted a place to sleep and rest because he was homeless. He talks to me about various other chronic ailments and illnesses. The only thing that was remotely new was the report of a seizure which was unwitnessed. He admits that he is not on any medication for this. He was given a dose of Dilantin here. I did write a prescription for Dilantin. Patient does not have any evidence of metabolic derangement. He is not tachycardic or tachypneic. There is no vital sign instability. He certainly does not have symptoms suggestive of status epilepticus. There is no visible sign of trauma suggestive of a head injury. Patient does not have abdominal pain or distention suggest tristen of any type of bowel obstruction. He reported gout, but has been ambulatory. He was subsequently discharged. Critical Care Time: No Critical care attestation.: If time is entered above; I have spent that time in minutes in the direct care of this critically ill patient, excluding procedure time. ED Disposition Clinical Impression: Seizure, Noncompliance, Homeless Disposition: 01 HOME / SELF CARE / HOMELESS Is pt being admited?: No Condition: Stable Instructions: Epilepsy Additional Instructions: Drink water. Take medications as prescribed. Follow-up with a regular doctor or the referral physician. Return for problems. Prescriptions: Phenytoin [Dilantin] 100 mg PO Q8HR #90 capsule Referrals: DALIA CURRAN MD [Staff Physician] - 3-5 Days
[2021-03-10 19:39] VITALS: BP 142/88
[2021-03-10] MEDS ORDERED: PHENYTOIN 100 MG CAPSULE.ER PO ONE (19:40)
== END 2021-03-10 20:33 | disposition home or self-care (01) ==
LOC: ED 19:30
DX: G40.909 Epilepsy, unspecified, not intractable, without status epilepticus (principal); I10 Essential (primary) hypertension; J45.909 Unspecified asthma, uncomplicated; Z59.00 Homelessness unspecified
CPT/HCPCS: 99282

== ENCOUNTER 2021-03-12 18:52 | Emergency (ER) | payer SELFPAY ==
[2021-03-12 19:21] VITALS: BP 134/98
--- NOTE | 2021-03-12 19:22 | Emergency Department Report ---
ED General Adult HPI - General Chief complaint: Seizure Stated complaint: ETOH Time Seen by Provider: 03/12/21 19:21 Source: EMS Mode of arrival: Stretcher Limitations: No Limitations - History of Present Illness Initial comments: Patient was brought in by EMS for seizure. He called EMS because he reportedly had a seizure in the bathroom. This was unwitnessed. Patient was not postictal. Upon arrival, the patient states that he had a seizure. He states that they started years ago. He does not know when his last seizure was. He cannot tell me if he had a seizure today. Patient admits that he has a prescription for seizure medication in his pocket but he has no money to fill the prescription. He does admit that he has been drinking alcohol and he can afford alcohol. Patient states that his last drink was "a long time ago." When questioned further, he was drinking earlier today. He states that he needs something for mental illness. Patient states that he had been in [facility] and other psychiatric hospitals and he needs medication for anxiety. He asked specifically for Ativan. Patient states that he just needs something to help him relax. He then states that he needs medicine for seizures and that we need to fill his prescription for him. He was informed that we do not have samples and do not have that ability. - Related Data Previous Rx's Medication Instructions Recorded Last Taken Type Aspirin EC [Halfprin EC] 81 mg PO QDAY #30 tablet 12/18/20 Unknown Rx Furosemide [Lasix TAB] 20 mg PO QDAY #30 tablet 12/18/20 Unknown Rx Losartan [Cozaar] 25 mg PO QDAY #30 tablet 12/18/20 Unknown Rx Spironolactone [Aldactone] 25 mg PO QDAY #30 tablet 12/18/20 Unknown Rx carvediloL [Coreg] 6.25 mg PO BID #60 tablet 12/18/20 Unknown Rx Folic Acid [Folvite] 1 mg PO QDAY #30 tablet 02/13/21 Unknown Rx Magnesium 200 mg PO DAILY #7 tablet 02/13/21 Unknown Rx Multivitamin Tab [Multiple Vitamin 1 each PO DAILY #30 tablet 02/13/21 Unknown Rx TAB (Theragran)] Thiamine [Vitamin B-1] 100 mg PO QDAY #30 tablet 02/13/21 Unknown Rx Phenytoin [Dilantin] 100 mg PO Q8HR #90 capsule 03/10/21 Unknown Rx hydrOXYzine HCL [Atarax] 25 mg PO Q6HR PRN #10 tablet 03/12/21 Unknown Rx Allergies Allergy/AdvReac Type Severity Reaction Status Date / Time olanzapine [From Zyprexa] Allergy Nausea Verified 03/12/21 19:20 ED Review of Systems ROS: Stated complaint: ETOH Other details as noted in HPI Comment: All other systems reviewed and negative Constitutional: denies: fever Eyes: denies: eye pain ENT: denies: throat pain Respiratory: cough (Chronically) Cardiovascular: denies: chest pain Endocrine: denies: unexplained weight loss Gastrointestinal: denies: hematemesis Genitourinary: denies: hematuria Musculoskeletal: denies: myalgia Skin: denies: rash Neurological: denies: headache Hematological/Lymphatic: denies: easy bruising ED Past Medical Hx - Past Medical History Hx Hypertension: Yes Hx Congestive Heart Failure: No Hx Diabetes: No Hx Seizures: Yes Hx Psychiatric Treatment: Yes (anxiety psychosis) Hx Asthma: Yes Hx COPD: No Additional medical history: Alcoholism. pancreatitis. legally blind - Surgical History Additional Surgical History: R knee surgery, left lung injury HIP SURGERY - Family History Family history: hypertension - Social History Smoking Status: Unknown if ever smoked Substance Use Type: None - Medications Home Medications: Home Medications Medication Instructions Recorded Confirmed Last Taken Type Aspirin EC [Halfprin EC] 81 mg PO QDAY #30 tablet 12/18/20 Unknown Rx Furosemide [Lasix TAB] 20 mg PO QDAY #30 tablet 12/18/20 Unknown Rx Losartan [Cozaar] 25 mg PO QDAY #30 tablet 12/18/20 Unknown Rx Spironolactone [Aldactone] 25 mg PO QDAY #30 tablet 12/18/20 Unknown Rx carvediloL [Coreg] 6.25 mg PO BID #60 tablet 12/18/20 Unknown Rx Folic Acid [Folvite] 1 mg PO QDAY #30 tablet 02/13/21 Unknown Rx Magnesium 200 mg PO DAILY #7 tablet 02/13/21 Unknown Rx Multivitamin Tab [Multiple Vitamin 1 each PO DAILY #30 tablet 02/13/21 Unknown Rx TAB (Theragran)] Thiamine [Vitamin B-1] 100 mg PO QDAY #30 tablet 02/13/21 Unknown Rx Phenytoin [Dilantin] 100 mg PO Q8HR #90 capsule 03/10/21 Unknown Rx hydrOXYzine HCL [Atarax] 25 mg PO Q6HR PRN #10 tablet 03/12/21 Unknown Rx ED Physical Exam - General Limitations: No Limitations, Other (Pulse ox noted and normal) General appearance: alert, in no apparent distress, other (Appears older than stated age. Disheveled and unkempt) - Head Head exam: Present: atraumatic, normocephalic - Eye Eye exam: Present: normal appearance, EOMI. Absent: scleral icterus - ENT ENT exam: Present: normal external ear exam - Neck Neck exam: Present: normal inspection. Absent: meningismus - Respiratory Respiratory exam: Present: normal lung sounds bilaterally. Absent: respiratory distress - Cardiovascular Cardiovascular Exam: Present: regular rate, normal rhythm - GI/Abdominal GI/Abdominal exam: Present: soft. Absent: distended - Extremities Exam Extremities exam: Present: normal capillary refill - Back Exam Back exam: Present: full ROM - Neurological Exam Neurological exam: Present: alert, oriented X3, reflexes normal. Absent: motor sensory deficit - Psychiatric Psychiatric exam: Absent: suicidal ideation - Skin Skin exam: Present: warm, dry ED Course Vital Signs 03/12/21 19:20 Temperature 98.9 F Pulse Rate 96 H Respiratory 18 Rate Blood Pressure 134/98 [Left] O2 Sat by Pulse 98 Oximetry - Reevaluation(s) Reevaluation #1: 03/12/21 19:22 EMS was met upon arrival. Patient was discharged. Old records noted. Critical Care Time: No Critical care attestation.: If time is entered above; I have spent that time in minutes in the direct care of this critically ill patient, excluding procedure time. ED Disposition Clinical Impression: History of seizure, Alcohol abuse, Homeless, Anxiety Disposition: HOME / SELF CARE / HOMELESS Is pt being admited?: No Condition: Stable Instructions: Alcohol Use Disorder, Substance Use Disorder and Mental Illness, Stress, Adult Additional Instructions: Take your medication. Fill your prescription for seizure medicine. Avoid alcohol and other illicit drugs. Drink plenty of water. Follow-up as discussed and directed with a regular doctor. Prescriptions: hydrOXYzine HCL [Atarax] 25 mg PO Q6HR PRN #10 tablet PRN Reason: Anxiety Referrals: GAIL ALVRAEZ MD [Staff Physician] - 3-5 Days
[2021-03-12] MEDS ORDERED: hydrOXYzine HCL 10 MG TAB PO ONE (20:22)
== END 2021-03-12 21:30 | disposition home or self-care (01) ==
LOC: ED 18:52
DX: R56.9 Unspecified convulsions (principal); F41.9 Anxiety disorder, unspecified; Z59.00 Homelessness unspecified; I10 Essential (primary) hypertension; J45.909 Unspecified asthma, uncomplicated
CPT/HCPCS: 99283; J3490

== ENCOUNTER 2021-03-13 14:59 | Emergency (ER) | payer SELFPAY ==
[2021-03-13 15:03] VITALS: BP 164/89
--- NOTE | 2021-03-13 15:21 | Event Note ---
ED Screening Note ED Screening Note: This is a 65-year-old male with history of alcohol dependence, seizure who presents via EMS. Bystanders called 911 because he was found loitering at a gas patient. When EMS arrived he states that he is "cold and hungry. He requestsa sack lunch. Denies any physical complaints at this time. Medical screening exam performed and completed. He does not have any acute emergent condition. Vital signs are stable. Discharged to self-care.
[2021-03-13] MEDS ORDERED: ETOMIDATE 20 MG/10 ML INJ IV ONE (21:19)
[2021-03-13] MEDS ORDERED: ROCURONIUM 50 MG/5 ML INJ IV ONE (21:20)
[2021-03-13] MEDS ORDERED: NALOXONE 2 MG/2 ML INJ ONE (21:24)
== END 2021-03-15 00:07 | disposition home or self-care (01) ==
LOC: ED 14:59
DX: Z00.00 Encounter for general adult medical examination without abnormal findings (principal); R56.9 Unspecified convulsions; T73.0XXA Starvation, initial encounter
CPT/HCPCS: 99283; J2310; J3490

== ENCOUNTER 2021-03-14 05:59 | Emergency (ER) | payer SELFPAY ==
[2021-03-14 06:05] VITALS: BP 166/99
== END 2021-03-14 19:30 | disposition home or self-care (01) ==
LOC: ED 05:59
DX: R07.9 Chest pain, unspecified (principal); Z53.21 Procedure and treatment not carried out due to patient leaving prior to being seen by health care provider

== ENCOUNTER 2021-03-14 19:49 | Inpatient (IN) | payer SELFPAY, OTHER ==
[2021-03-14] MEDS ORDERED: hydrOXYzine PAMOATE 25 MG CAP PO ONE (22:27)
--- NOTE | 2021-03-14 22:37 | Emergency Department Report ---
HPI - General Time Seen by Provider: 03/14/21 22:18 - HPI HPI: Room 44 The patient is a 65-year-old male present with a chief complaint of seizure. The patient states he had a seizure today. Patient states he has not taken his Dilantin in approximately 1 month. Patient also admits to nausea vomiting for the past 2 to 3 days with an occasional cough. Patient denies history of fever. Patient states he was not vaccinated against COVID. The patient also states he has had suicidal ideation for "a long time. Patient denies any attempts at harming himself ED Past Medical Hx - Past Medical History Hx Hypertension: Yes Hx Seizures: Yes Hx Psychiatric Treatment: Yes (anxiety psychosis) Hx Asthma: Yes Additional medical history: Alcoholism. pancreatitis. legally blind - Surgical History Additional Surgical History: R knee surgery, left lung injury HIP SURGERY - Family History Family history: no significant - Social History Smoking Status: Unknown if ever smoked Substance Use Type: None - Medications Home Medications: Home Medications Medication Instructions Recorded Confirmed Last Taken Type Aspirin EC [Halfprin EC] 81 mg PO QDAY #30 tablet 12/18/20 Unknown Rx Furosemide [Lasix TAB] 20 mg PO QDAY #30 tablet 12/18/20 Unknown Rx Losartan [Cozaar] 25 mg PO QDAY #30 tablet 12/18/20 Unknown Rx Spironolactone [Aldactone] 25 mg PO QDAY #30 tablet 12/18/20 Unknown Rx carvediloL [Coreg] 6.25 mg PO BID #60 tablet 12/18/20 Unknown Rx Folic Acid [Folvite] 1 mg PO QDAY #30 tablet 02/13/21 Unknown Rx Magnesium 200 mg PO DAILY #7 tablet 02/13/21 Unknown Rx Multivitamin Tab [Multiple Vitamin 1 each PO DAILY #30 tablet 02/13/21 Unknown Rx TAB (Theragran)] Thiamine [Vitamin B-1] 100 mg PO QDAY #30 tablet 02/13/21 Unknown Rx Phenytoin [Dilantin] 100 mg PO Q8HR #90 capsule 03/10/21 Unknown Rx hydrOXYzine HCL [Atarax] 25 mg PO Q6HR PRN #10 tablet 03/12/21 Unknown Rx ED Review of Systems ROS: Stated complaint: LEFT HIP PAIN Other details as noted in HPI Constitutional: no symptoms reported Eyes: denies: eye pain Respiratory: cough Cardiovascular: denies: chest pain Endocrine: no symptoms reported Gastrointestinal: nausea, vomiting Genitourinary: denies: dysuria Musculoskeletal: denies: back pain Neurological: denies: headache Psychiatric: suicidal thoughts Physical Exam - Physical Exam Vital Signs: Vital Signs 03/14/21 23:49 Temperature 97.8 F Pulse Rate 99 H Respiratory 20 Rate Blood Pressure 145/78 [Left] O2 Sat by Pulse 96 Oximetry Physical Exam: GENERAL: The patient is a disheveled male sitting in chair not appearing to be in acute distress HEENT: Normocephalic. Atraumatic. Extraocular motions are intact. Patient has moist mucous membranes. NECK: Supple. Trachea midline CHEST/LUNGS: Clear to auscultation. There is no respiratory distress noted. HEART/CARDIOVASCULAR: Regular. There is no tachycardia. There is no gallop rub or murmur. ABDOMEN: Abdomen is soft, nontender. Patient has normal bowel sounds. There is no abdominal distention. SKIN: There is no rash. There is no edema. There is no diaphoresis. NEURO: The patient is awake, alert, and oriented. The patient is cooperative. The patient has no focal neurologic deficits. The patient has normal speech. GCS 15 MUSCULOSKELETAL: There is no evidence of acute injury. ED Medical Decision Making - Lab Data Result diagrams: 03/14/21 22:43 03/14/21 22:43 Laboratory Tests 03/14/21 03/14/21 03/14/21 22:43 22:43 22:43 WBC 5.4 RBC 4.24 Hgb 15.3 H Hct 45.5 MCV 107 H MCH 36 H MCHC 34 RDW 21.0 H Plt Count 241 Lymph % (Auto) 19.8 [place] % (Auto) 15.5 H Eos % (Auto) 1.0 Baso % (Auto) 0.8 Lymph # (Auto) 1.1 L [place] # (Auto) 0.8 Eos # (Auto) 0.1 Baso # (Auto) 0.0 Seg Neutrophils % 62.9 Seg Neutrophils # 3.4 Sodium 120 L Potassium 3.4 L Chloride 83.4 L Carbon Dioxide 24 Anion Gap 16 BUN 8 L Creatinine 0.5 L Estimated GFR > 60 BUN/Creatinine Ratio 16 Glucose 95 Calcium 8.2 L Magnesium Salicylates < 0.3 L Acetaminophen Phenytoin 0.8 L Plasma/Serum Alcohol 01/10/2603/14/21 03/14/21 22:43 22:43 22:43 WBC RBC Hgb Hct MCV MCH MCHC RDW Plt Count Lymph % (Auto) [place] % (Auto) Eos % (Auto) Baso % (Auto) Lymph # (Auto) [place] # (Auto) Eos # (Auto) Baso # (Auto) Seg Neutrophils % Seg Neutrophils # Sodium Potassium Chloride Carbon Dioxide Anion Gap BUN Creatinine Estimated GFR BUN/Creatinine Ratio Glucose Calcium Magnesium 1.20 L Salicylates Acetaminophen 5.0 L Phenytoin Plasma/Serum Alcohol 0.19 H - Differential Diagnosis Suicidal ideation, gastritis, seizure Critical care attestation.: If time is entered above; I have spent that time in minutes in the direct care of this critically ill patient, excluding procedure time. ED Disposition Clinical Impression: Seizure, Suicidal ideation, Hyponatremia, Hypomagnesemia Disposition: ADMITTED INPATIENT Is pt being admited?: Yes Does the pt Need Aspirin: No Condition: Stable Time of Disposition: 23:45 (Hospitalist called (Dr Clancy))
[2021-03-14 23:06] LABS: Basophils % (Auto) 0.8 % (0.0-1.8); Eosinophils # (Auto) 0.1 K/mm3 (0.0-0.4); Hematocrit 45.5 % (35.5-45.6); Hemoglobin 15.3 gm/dl (11.8-15.2); Lymphocytes # (Auto) 1.1 K/mm3 (1.2-5.4); Lymphocytes % (Auto) 19.8 % (13.4-35.0); Mean Corpuscular HGB Conc 34 % (32-34); Mean Corpuscular Volume 107 fl (84-94); Monocytes # (Auto) 0.8 K/mm3 (0.0-0.8); Monocytes % (Auto) 15.5 % (0.0-7.3); Platelet Count 241 K/mm3 (140-440); Red Blood Count 4.24 M/mm3 (3.65-5.03)
[2021-03-14 23:22] LABS: Blood Urea Nitrogen 8 mg/dL (9-20); Calcium 8.2 mg/dL (8.4-10.2); Hemolysis Index 10
[2021-03-14 23:35] LABS: BUN/Creatinine Ratio 16
[2021-03-14] MEDS ORDERED: SODIUM CHLORIDE 0.9% 1000 ML 1,000 ML IV ONE (23:38)
[2021-03-14] MEDS ORDERED: MAGNESIUM SULFATE 2 GM/50 ML BAG IV ONE (23:39)
[2021-03-14] MEDS ORDERED: POTASSIUM CHLORIDE ER 20 MEQ TAB PO ONE (23:55)
[2021-03-15] MEDS ORDERED: FOSPHENYTOIN 1,000 MG.PE in SODIUM CHLORIDE 0.9% 100 ML IV ONE (00:15)
[2021-03-15] MEDS ORDERED: MAGNESIUM HYDROXIDE (MOM) ORAL LIQD UDC PO PRN (00:46)
[2021-03-15] MEDS ORDERED: MORPHINE 2 MG/1 ML INJ IV PRN (00:46)
[2021-03-15] MEDS ORDERED: LORazepam 2 MG/ML VIAL IV PRN ×2 (00:46)
[2021-03-15] MEDS ORDERED: MORPHINE 4 MG/1 ML INJ IV PRN (00:46)
[2021-03-15] MEDS ORDERED: ONDANSETRON 4 MG/2 ML INJ IV PRN (00:46)
--- NOTE | 2021-03-15 00:58 | History and Physical Report ---
History of Present Illness Date of examination: 03/15/21 Date of admission: 03/15/2021 Chief complaint: Seizure History of present illness: 65-year-old male with known history of anxiety/psychosis, seizure disorder and alcohol dependence presents to the emergency room today with complaint of seizure. Patient is well-known to this facility and has been here on multiple occasions. He states he has been having nausea and vomiting with occasional cough over the past 2 to 3 days. He denies any fever or chills, no chest pain, no headache or dizziness and no diaphoresis. Patient also indicates that he has had suicidal ideation for a long time but denies harming himself at the moment. Patient states he is homeless and currently notes vaccinated against COVID-19. His last alcohol intake was about 24 hours ago. Work-up in the emergency room today, significant findings were that of hyponatremia of 120, hypokalemia of 3.4, hypomagnesemia 1.2. Dilantin level was 0.8 and alcohol level was 0.19. Patient is being admitted today for electrolyte abnormalities, suicidal ideations and is history of seizure. He is currently placed on 1013. Past History Past Medical History: hypertension, seizures, other (Anxiety, psychosis, alcoholism, pancreatitis, legally blind, asthma) Past Surgical History: No surgical history Social history: alcohol abuse (Patient has a long-term history of alcohol abuse) Family history: no significant family history Medications and Allergies Allergies Allergy/AdvReac Type Severity Reaction Status Date / Time olanzapine [From Zyprexa] Allergy Nausea Verified 03/12/21 19:20 Home Medications Medication Instructions Recorded Confirmed Last Taken Type Aspirin EC [Halfprin EC] 81 mg PO QDAY #30 tablet 12/18/20 Unknown Rx Furosemide [Lasix TAB] 20 mg PO QDAY #30 tablet 12/18/20 Unknown Rx Losartan [Cozaar] 25 mg PO QDAY #30 tablet 12/18/20 Unknown Rx Spironolactone [Aldactone] 25 mg PO QDAY #30 tablet 12/18/20 Unknown Rx carvediloL [Coreg] 6.25 mg PO BID #60 tablet 12/18/20 Unknown Rx Folic Acid [Folvite] 1 mg PO QDAY #30 tablet 02/13/21 Unknown Rx Magnesium 200 mg PO DAILY #7 tablet 02/13/21 Unknown Rx Multivitamin Tab [Multiple Vitamin 1 each PO DAILY #30 tablet 02/13/21 Unknown Rx TAB (Theragran)] Thiamine [Vitamin B-1] 100 mg PO QDAY #30 tablet 02/13/21 Unknown Rx Phenytoin [Dilantin] 100 mg PO Q8HR #90 capsule 03/10/21 Unknown Rx hydrOXYzine HCL [Atarax] 25 mg PO Q6HR PRN #10 tablet 03/12/21 Unknown Rx Active Meds: Active Medications Acetaminophen (Acetaminophen 325 Mg Tab) 650 mg PO Q4H PRN PRN Reason: Pain MILD(1-3)/Fever >100.5/CAAL Phenytoin (Phenytoin 100 Mg Capsule.Er) 100 mg PO Q8HR DG Review of Systems Constitutional: no fever, no chills Ears, nose, mouth and throat: no nasal congestion, no sore throat Cardiovascular: no chest pain, no palpitations Respiratory: no cough, no shortness of breath Gastrointestinal: nausea, vomiting, no abdominal pain, no diarrhea Genitourinary Male: no dysuria, no hematuria, no flank pain, no nocturia Musculoskeletal: no neck pain, no low back pain Integumentary: no rash, no pruritis Neurological: no headaches, no change in speech Psychiatric: no anxiety, no depression, no confusion Endocrine: no polyphagia, no polydipsia, no polyuria, no nocturia Exam - Constitutional Vitals: Temp Pulse Resp BP Pulse Ox 97.8 F 99 H 20 145/78 96 03/14/21 23:49 03/14/21 23:49 03/14/21 23:49 03/14/21 23:49 03/14/21 23:49 General appearance: Present: no acute distress, well-nourished - EENT Eyes: Present: PERRL, EOM intact. Absent: scleral icterus ENT: hearing intact, clear oral mucosa, dentition normal - Neck Neck: Present: supple, normal ROM - Respiratory Respiratory effort: normal Respiratory: bilateral: CTA - Cardiovascular Rhythm: regular Heart Sounds: Present: S1 & S2. Absent: gallop, systolic murmur, diastolic murmur, rub, click - Extremities Extremities: no ischemia, pulses intact, pulses symmetrical, No edema, normal temperature, normal color, Full ROM Peripheral Pulses: within normal limits - Abdominal General gastrointestinal: Present: soft, non-tender, non-distended, normal bowel sounds - Integumentary Integumentary: Present: clear, warm, dry, normal turgor. Absent: rash - Musculoskeletal Musculoskeletal: strength equal bilaterally - Psychiatric Psychiatric: appropriate mood/affect, intact judgment & insight, memory intact - Neurologic Neurologic: CNII-XII intact, no focal deficits, moves all extremities Results - Labs CBC & Chem 7: 03/14/21 22:43 03/16/21 03:59 Labs: Abnormal lab results 03/14/21 03/14/21 03/14/21 Range/Units 22:43 22:43 22:43 Hgb 15.3 H (11.8-15.2) gm/dl MCV 107 H (84-94) fl MCH 36 H (28-32) pg RDW 21.0 H (13.2-15.2) % [place] % (Auto) 15.5 H (0.0-7.3) % Lymph # (Auto) 1.1 L (1.2-5.4) K/mm3 Sodium 120 L (137-145) mmol/L Potassium 3.4 L (3.6-5.0) mmol/L Chloride 83.4 L (98-107) mmol/L BUN 8 L (9-20) mg/dL Creatinine 0.5 L (0.8-1.3) mg/dL Calcium 8.2 L (8.4-10.2) mg/dL Magnesium (1.7-2.3) mg/dL Salicylates < 0.3 L (2.8-20.0) mg/dL Acetaminophen (10.0-30.0) ug/mL Phenytoin 0.8 L (10.0-20.0) ug/mL Plasma/Serum Alcohol (0-0.07) % 03/14/21 03/14/21 03/14/21 Range/Units 22:43 22:43 22:43 Hgb (11.8-15.2) gm/dl MCV (84-94) fl MCH (28-32) pg RDW (13.2-15.2) % [place] % (Auto) (0.0-7.3) % Lymph # (Auto) (1.2-5.4) K/mm3 Sodium (137-145) mmol/L Potassium (3.6-5.0) mmol/L Chloride (98-107) mmol/L BUN (9-20) mg/dL Creatinine (0.8-1.3) mg/dL Calcium (8.4-10.2) mg/dL Magnesium 1.20 L (1.7-2.3) mg/dL Salicylates (2.8-20.0) mg/dL Acetaminophen 5.0 L (10.0-30.0) ug/mL Phenytoin (10.0-20.0) ug/mL Plasma/Serum Alcohol 0.19 H (0-0.07) % Assessment and Plan - Patient Problems (1) Acute hyponatremia Current Visit: No Status: Acute Plan to address problem: Patient placed on IV fluid normal saline. Will monitor chemistry. Consult placed to nephrology for evaluation. (2) Hypomagnesemia Current Visit: Yes Status: Acute Plan to address problem: Possibly secondary to his alcohol dependence. Magnesium will be repleted. Will monitor magnesium level. (3) Seizures Current Visit: Yes Status: Acute Plan to address problem: Patient placed on Dilantin. Will place on seizure precautions. (4) Alcohol dependence Current Visit: No Status: Acute Plan to address problem: Patient will be placed on the CIWA protocol. (5) Hypokalemia Current Visit: No Status: Acute Plan to address problem: Potassium will be repleted and will monitor chemistry. (6) DVT prophylaxis Current Visit: No Status: Acute Plan to address problem: Patient placed on subcutaneous heparin. (7) Full code status Current Visit: No Status: Acute Plan to address problem: Patient is full code.
[2021-03-15] MEDS ORDERED: SODIUM CHLORIDE 0.9% 1000 ML 1,000 ML IV SCH (01:00)
[2021-03-15] MEDS ORDERED: THIAMINE 100 MG, FOLIC ACID 1 MG, MULTIPLE VITAMIN INJ, ADULT 10 ML in SODIUM CHLORIDE ... IV ONE (01:48)
--- NOTE | 2021-03-15 02:07 | XRay Report ---
CHEST 1 VIEW INDICATION: Cough. COMPARISON: 12/13/2020 FINDINGS: SUPPORT DEVICES: None. HEART: Within normal limits. LUNGS/PLEURA: No acute air space or interstitial disease. ADDITIONAL FINDINGS: None. IMPRESSION: 1. No acute findings. Signer Name: Primitivo Pereira MD Signed: 03/15/2021 2:02 AM Workstation Name: [id number]
[2021-03-15] MEDS: LORazepam 2 MG/ML VIAL IV PRN ×2 (04:25→15:06)
[2021-03-15] MEDS: PHENYTOIN 100 MG CAPSULE.ER PO SCH ×3 (06:00→23:17)
[2021-03-15 09:19] LABS: Bacteria,Urine 1+ /HPF (Negative); Bilirubin,Urine NEG (Negative); Blood,Urine SM (Negative); Color,Urine Yellow (Yellow); Protein,Urine <15 mg/dL mg/dL (Negative)
[2021-03-15 09:26] LABS: Amphetamine Screen,Urine Negative; Benzodiazepines Screen,Urine Negative; Cannabinoid Screen,Urine Negative; Cocaine Screen,Urine Negative; Methadone Screen,Urine Negative; Opiate Screen,Urine Negative
[2021-03-15] MEDS: carvediloL 6.25 MG TAB PO SCH ×2 (09:30→17:39)
[2021-03-15] MEDS: ASPIRIN EC 81 MG TAB PO SCH (10:28)
[2021-03-15] MEDS: MAGNESIUM OXIDE 400 MG TAB PO SCH (10:29)
[2021-03-15 11:08] LABS: Blood Urea Nitrogen 7 mg/dL (9-20); Calcium 8.6 mg/dL (8.4-10.2); Hemolysis Index 19
[2021-03-15 11:14] LABS: BUN/Creatinine Ratio 12
--- NOTE | 2021-03-15 12:01 | Consultation ---
History of Present Illness - Reason for Consult Consult date: 03/15/21 Reason for consult: suicidal ideation - Chief Complaint Chief complaint: Seizure - History of Present Psychiatric Illness ED Note: The patient is a 65-year-old male present with a chief complaint of seizure. The patient states he had a seizure today. Patient states he has not taken his Dilantin in approximately 1 month. Patient also admits to nausea vomiting for the past 2 to 3 days with an occasional cough. Patient denies h istory of fever. Patient states he was not vaccinated against COVID. The patient also states he has had suicidal ideation for "a long time. Patient denies any attempts at harming himself Mayank Alonso is 65 year old male with history of Schizophrenia, anxiety and Alcohol use Disorder who was admitted to the ED with compliant of seizure. In my interview with the patient, he is calm, alert and oriented x2. The patient reports noncompliant with psychotropic medications. The patient is a poor historian; he states he is homeless and needs help. He denies any current suicidal/homicidal ideation but admits having intermittent auditory/visual hallucinations. PAST PSYCHIATRIC HISTORY: Diagnoses: Schizophrenia, Anxiety and Alcohol use Disorder Suicide attempts or Self-harm behavior: Denies Prior psychiatric hospitalizations: Yes Substance Abuse history: alcohol Previous psychiatric medications tried: Ativan, Depakote Outpatient treatment: Denies PAST MEDICAL HISTORY: None reported or document Family Psychiatric History: None reported or documented SOCIAL HISTORY Marital Status: single Living Arrangements: Homeless Employment Status: Unemployed Access to guns/weapons: Denies Education: 10th grade History of Abuse: Denies Legal History: unknown REVIEW OF SYSTEMS Constitutional: Negative for weight loss ENT: Negative for stridor Respiratory: Negative for cough or hemoptysis All other systems reviewed and are negative MENTAL STATUS EXAMINATION General Appearance and Behavior: Age appropriate, wearing appropriate clothes, cooperative, polite with questioning, fair eye contact, calm Cooperation: cooperative Psychomotor Behavior: Psychomotor normal Mood: "anxious" Affect and affective range: congruent with stated mood Thought Process: goal directed Thought Content: Denies SI Speech: Normal volume, Regular rate and rhythm Suicidal Ideation: Denies Homicidal Ideation: Denies hallucination: Denies Delusions: None elicited Impulse Control: Intact Insight and Judgment: Limited Memory: Intact Attention:Distractible Orientation: Alert and oriented Diagnoses: (1)Schizophrenia- F20.9 Treatment Plan [facility] protocol Start Vistaril 25mg po BID PSYCHOTHERAPY: Supportive psychotherapy provided MEDICAL: Per primary team DELIRIUM PRECAUTIONS: Please re-orient patient frequently, keep lights on during the day, and minimize benzodiazepines and opiates as these medications could worsen patient's confusion. 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 Please contact with any questions and/or concerns. Thank you for the consult. Case staffed with Dr. Patel Medications and Allergies Medications and Allergies Allergies Allergy/AdvReac Type Severity Reaction Status Date / Time olanzapine [From Zyprexa] Allergy Nausea Verified 03/12/21 19:20 Home Medications Medication Instructions Recorded Confirmed Last Taken Type Aspirin EC [Halfprin EC] 81 mg PO QDAY #30 tablet 12/18/20 Unknown Rx Furosemide [Lasix TAB] 20 mg PO QDAY #30 tablet 12/18/20 Unknown Rx Losartan [Cozaar] 25 mg PO QDAY #30 tablet 12/18/20 Unknown Rx Spironolactone [Aldactone] 25 mg PO QDAY #30 tablet 12/18/20 Unknown Rx carvediloL [Coreg] 6.25 mg PO BID #60 tablet 12/18/20 Unknown Rx Folic Acid [Folvite] 1 mg PO QDAY #30 tablet 02/13/21 Unknown Rx Magnesium 200 mg PO DAILY #7 tablet 02/13/21 Unknown Rx Multivitamin Tab [Multiple Vitamin 1 each PO DAILY #30 tablet 02/13/21 Unknown Rx TAB (Theragran)] Thiamine [Vitamin B-1] 100 mg PO QDAY #30 tablet 02/13/21 Unknown Rx Phenytoin [Dilantin] 100 mg PO Q8HR #90 capsule 03/10/21 Unknown Rx hydrOXYzine HCL [Atarax] 25 mg PO Q6HR PRN #10 tablet 03/12/21 Unknown Rx Active Meds: Active Medications Acetaminophen (Acetaminophen 325 Mg Tab) 650 mg PO Q4H PRN PRN Reason: Pain MILD(1-3)/Fever >100.5/CAAL Aspirin (Aspirin Ec 81 Mg Tab) 81 mg PO QDAY [facility] Last Admin: 03/15/21 10:28 Dose: 81 mg Carvedilol (Carvedilol 6.25 Mg Tab) 6.25 mg PO BID@0800,1700 [facility] Last Admin: 03/15/21 09:30 Dose: 6.25 mg Sodium Chloride (Nacl 0.9% 1000 Ml) 1,000 mls @ 125 mls/hr IV DIRECT DG Lorazepam (Lorazepam 2 Mg/Ml Vial) 2 mg IV Q1H PRN PRN Reason: CIWA-Ar 8-15 Last Admin: 03/15/21 04:25 Dose: 2 mg Lorazepam (Lorazepam 2 Mg/Ml Vial) 4 mg IV Q1H PRN PRN Reason: CIWA-Ar 16-25 Lorazepam (Lorazepam 2 Mg/Ml Vial) 4 mg IV Q15MIN PRN PRN Reason: CIWA-Ar >25 Losartan Potassium (Losartan 25 Mg Tab) 25 mg PO QDAY [facility] Magnesium Hydroxide (Magnesium Hydroxide (Mom) Oral Liqd Udc) 30 ml PO Q4H PRN PRN Reason: Constipation Magnesium Oxide (Magnesium Oxide 400 Mg Tab) 200 mg PO DAILY [facility] Last Admin: 03/15/21 10:29 Dose: 200 mg Morphine Sulfate (Morphine 2 Mg/1 Ml Inj) 2 mg IV Q4H PRN PRN Reason: Pain, Moderate (4-6) Morphine Sulfate (Morphine 4 Mg/1 Ml Inj) 4 mg IV Q4H PRN PRN Reason: Pain , Severe (7-10) Ondansetron HCl (Ondansetron 4 Mg/2 Ml Inj) 4 mg IV Q8H PRN PRN Reason: Nausea And Vomiting Phenytoin (Phenytoin 100 Mg Capsule.Er) 100 mg PO Q8HR [facility] Last Admin: 03/15/21 06:00 Dose: 100 mg Sodium Chloride (Sodium Chloride 0.9% 10 Ml Flush Syringe) 10 ml IV BID [facility] Last Admin: 03/15/21 09:59 Dose: Not Given Sodium Chloride (Sodium Chloride 0.9% 10 Ml Flush Syringe) 10 ml IV PRN PRN PRN Reason: LINE FLUSH Mental Status Exam - Vital signs Last Vital Signs Temp 97.8 F 03/14/21 23:49 Pulse 88 03/15/21 09:30 Resp 20 03/14/21 23:49 BP 179/89 03/15/21 09:30 Pulse Ox 96 03/14/21 23:49 Results Result Diagrams: 03/14/21 22:43 03/15/21 10:38 Abnormal lab results 03/14/21 03/14/21 03/14/21 Range/Units 22:43 22:43 22:43 Hgb 15.3 H (11.8-15.2) gm/dl MCV 107 H (84-94) fl MCH 36 H (28-32) pg RDW 21.0 H (13.2-15.2) % [place] % (Auto) 15.5 H (0.0-7.3) % Lymph # (Auto) 1.1 L (1.2-5.4) K/mm3 Sodium 120 L (137-145) mmol/L Potassium 3.4 L (3.6-5.0) mmol/L Chloride 83.4 L (98-107) mmol/L BUN 8 L (9-20) mg/dL Creatinine 0.5 L (0.8-1.3) mg/dL Calcium 8.2 L (8.4-10.2) mg/dL Magnesium (1.7-2.3) mg/dL Salicylates < 0.3 L (2.8-20.0) mg/dL Acetaminophen (10.0-30.0) ug/mL Phenytoin 0.8 L (10.0-20.0) ug/mL Plasma/Serum Alcohol (0-0.07) % 03/14/21 03/14/21 03/14/21 Range/Units 22:43 22:43 22:43 Hgb (11.8-15.2) gm/dl MCV (84-94) fl MCH (28-32) pg RDW (13.2-15.2) % [place] % (Auto) (0.0-7.3) % Lymph # (Auto) (1.2-5.4) K/mm3 Sodium (137-145) mmol/L Potassium (3.6-5.0) mmol/L Chloride (98-107) mmol/L BUN (9-20) mg/dL Creatinine (0.8-1.3) mg/dL Calcium (8.4-10.2) mg/dL Magnesium 1.20 L (1.7-2.3) mg/dL Salicylates (2.8-20.0) mg/dL Acetaminophen 5.0 L (10.0-30.0) ug/mL Phenytoin (10.0-20.0) ug/mL Plasma/Serum Alcohol 0.19 H (0-0.07) % 03/15/21 Range/Units 10:38 Hgb (11.8-15.2) gm/dl MCV (84-94) fl MCH (28-32) pg RDW (13.2-15.2) % [place] % (Auto) (0.0-7.3) % Lymph # (Auto) (1.2-5.4) K/mm3 Sodium 125 L (137-145) mmol/L Potassium (3.6-5.0) mmol/L Chloride 87.6 L (98-107) mmol/L BUN 7 L (9-20) mg/dL Creatinine 0.6 L (0.8-1.3) mg/dL Calcium (8.4-10.2) mg/dL Magnesium 1.20 L (1.7-2.3) mg/dL Salicylates (2.8-20.0) mg/dL Acetaminophen (10.0-30.0) ug/mL Phenytoin (10.0-20.0) ug/mL Plasma/Serum Alcohol (0-0.07) % All other labs normal.
--- NOTE | 2021-03-15 12:17 | Consultation ---
History of Present Illness - History of Present Illness Thank you for the consultation Patient was evaluated today My assessment and plan are as follows Hyponatremia: Improving in the setting of hypokalemia which is corrected sodium yesterday was 120 which is currently at 125 with creatinine of 0.5, Urine specific gravity was only 1.003, Will check urine sodium, osmolality, uric acid, #Mild hypocalcemia 8.2 currently at 8.6 may have underlying vitamin D deficiency. patient has been on Dilantin, check vitamin D level Empirically can replace with 5000 units daily for now #Suicidal ideations, seizure disorder, being followed by psychiatry I have ordered renal labs osmolality studies to follow-up Author: Az Jason M.D. [facility], [address] [place] [address] Tel; [phone] Source of information: From the current chart History of present illness 65-year-old patient admitted here with seizure disorder, was noted to have hyponatremia, has also not been taking his Dilantin for the past 1 month, has had some nausea vomiting and poor by mouth intake for last 3-4 days Prior to admission patient was taking spironolactone as well as furosemide in addition to several other medications, Even to this hospitalization were noted Past medical history: Seizure disorder Noncompliant with medication did not take medicine for 1 month Current allergies: Reviewed from the current chart Social history: Reviewed from the current chart Family history: Reviewed from the current chart Review of system: Positive for seizure weakness fatigue All other review of systems negative Physical examination Vitals: Reviewed General: No acute distress HEENT: Oral mucosa moist no pallor or icterus Neck: Supple without any JVD thyromegaly or nodular mass Chest: Clear to auscultation Heart: Regular rate and rhythm S1-S2 heard no S3-S4 Abdomen: Soft nontender, bowel sounds present no renal bruit no suprapubic masses no CVA tenderness noted Extremity: Minimal edema dry skin no peripheral cyanosis Endocrine: Thyroid not enlarged Psychiatric: No agitation and aggression noted Musculoskeletal: No joint effusion noted Labs and x-rays: Reviewed from this admission Past History Past Medical History: hypertension, seizures, other (Anxiety, psychosis, alcoholism, pancreatitis, legally blind, asthma) Past Surgical History: No surgical history Social history: alcohol abuse (Patient has a long-term history of alcohol abuse) Family history: no significant family history Medications and Allergies Allergies Allergy/AdvReac Type Severity Reaction Status Date / Time olanzapine [From Zyprexa] Allergy Nausea Verified 03/12/21 19:20 Home Medications Medication Instructions Recorded Confirmed Last Taken Type Aspirin EC [Halfprin EC] 81 mg PO QDAY #30 tablet 12/18/20 Unknown Rx Furosemide [Lasix TAB] 20 mg PO QDAY #30 tablet 12/18/20 Unknown Rx Losartan [Cozaar] 25 mg PO QDAY #30 tablet 12/18/20 Unknown Rx Spironolactone [Aldactone] 25 mg PO QDAY #30 tablet 12/18/20 Unknown Rx carvediloL [Coreg] 6.25 mg PO BID #60 tablet 12/18/20 Unknown Rx Folic Acid [Folvite] 1 mg PO QDAY #30 tablet 02/13/21 Unknown Rx Magnesium 200 mg PO DAILY #7 tablet 02/13/21 Unknown Rx Multivitamin Tab [Multiple Vitamin 1 each PO DAILY #30 tablet 02/13/21 Unknown Rx TAB (Theragran)] Thiamine [Vitamin B-1] 100 mg PO QDAY #30 tablet 02/13/21 Unknown Rx Phenytoin [Dilantin] 100 mg PO Q8HR #90 capsule 03/10/21 Unknown Rx hydrOXYzine HCL [Atarax] 25 mg PO Q6HR PRN #10 tablet 03/12/21 Unknown Rx Active Meds: Active Medications Acetaminophen (Acetaminophen 325 Mg Tab) 650 mg PO Q4H PRN PRN Reason: Pain MILD(1-3)/Fever >100.5/CAAL Aspirin (Aspirin Ec 81 Mg Tab) 81 mg PO QDAY [facility] Last Admin: 03/15/21 10:28 Dose: 81 mg Carvedilol (Carvedilol 6.25 Mg Tab) 6.25 mg PO BID@0800,1700 [facility] Last Admin: 03/15/21 09:30 Dose: 6.25 mg Hydroxyzine HCl (Hydroxyzine Hcl 25 Mg Tab) 25 mg PO Q6HR PRN PRN Reason: Anxiety Sodium Chloride (Nacl 0.9% 1000 Ml) 1,000 mls @ 125 mls/hr IV DIRECT DG Lorazepam (Lorazepam 2 Mg/Ml Vial) 2 mg IV Q1H PRN PRN Reason: CIWA-Ar 8-15 Last Admin: 03/15/21 04:25 Dose: 2 mg Lorazepam (Lorazepam 2 Mg/Ml Vial) 4 mg IV Q1H PRN PRN Reason: CIWA-Ar 16-25 Lorazepam (Lorazepam 2 Mg/Ml Vial) 4 mg IV Q15MIN PRN PRN Reason: CIWA-Ar >25 Losartan Potassium (Losartan 25 Mg Tab) 25 mg PO QDAY [facility] Magnesium Hydroxide (Magnesium Hydroxide (Mom) Oral Liqd Udc) 30 ml PO Q4H PRN PRN Reason: Constipation Magnesium Oxide (Magnesium Oxide 400 Mg Tab) 200 mg PO DAILY [facility] Last Admin: 03/15/21 10:29 Dose: 200 mg Morphine Sulfate (Morphine 2 Mg/1 Ml Inj) 2 mg IV Q4H PRN PRN Reason: Pain, Moderate (4-6) Morphine Sulfate (Morphine 4 Mg/1 Ml Inj) 4 mg IV Q4H PRN PRN Reason: Pain , Severe (7-10) Ondansetron HCl (Ondansetron 4 Mg/2 Ml Inj) 4 mg IV Q8H PRN PRN Reason: Nausea And Vomiting Phenytoin (Phenytoin 100 Mg Capsule.Er) 100 mg PO Q8HR [facility] Last Admin: 03/15/21 06:00 Dose: 100 mg Sodium Chloride (Sodium Chloride 0.9% 10 Ml Flush Syringe) 10 ml IV BID [facility] Last Admin: 03/15/21 09:59 Dose: Not Given Sodium Chloride (Sodium Chloride 0.9% 10 Ml Flush Syringe) 10 ml IV PRN PRN PRN Reason: LINE FLUSH Thiamine HCl (Thiamine 100 Mg Tab) 100 mg PO QDAY [facility] Exam - Vital Signs Vital signs: Vital Signs Temp Pulse Resp BP Pulse Ox 97.8 F 99 H 20 145/78 96 03/14/21 23:49 03/14/21 23:49 03/14/21 23:49 03/14/21 23:49 03/14/21 23:49 Results - Lab Results 03/14/21 22:43 03/15/21 10:38 Most recent lab results Calcium 8.6 mg/dL (8.4-10.2) 03/15/21 10:38 Magnesium 1.20 mg/dL (1.7-2.3) L 03/15/21 10:38
--- NOTE | 2021-03-15 13:25 | Event Note ---
Date: 03/15/21 Patient seen and examined this morning feels drowsy repeat labs show some improvement in sodium and hyponatremia. Continue CIWA protocol his mental status precludes any counseling at this time we will do this when the patient is more awake. Anticipate discharge in a.m.
[2021-03-15] MEDS: LOSARTAN 25 MG TAB PO SCH (15:58)
[2021-03-16 05:26] LABS: Blood Urea Nitrogen 13 mg/dL (9-20); Calcium 8.6 mg/dL (8.4-10.2); Hemolysis Index 21
[2021-03-16 05:48] LABS: BUN/Creatinine Ratio 19
[2021-03-16] MEDS: PHENYTOIN 100 MG CAPSULE.ER PO SCH ×2 (07:42→14:34)
[2021-03-16 07:50] LABS: Hematocrit 43.9 % (35.5-45.6); Hemoglobin 14.8 gm/dl (11.8-15.2); Mean Corpuscular HGB Conc 34 % (32-34); Mean Corpuscular Volume 108 fl (84-94); Platelet Count 177 K/mm3 (140-440); Red Blood Count 4.06 M/mm3 (3.65-5.03); Red Cell Distribution Width 20.4 % (13.2-15.2)
[2021-03-16] MEDS: LORazepam 2 MG/ML VIAL IV PRN (07:57)
[2021-03-16] MEDS: carvediloL 6.25 MG TAB PO SCH ×2 (07:57→16:50)
--- NOTE | 2021-03-16 08:43 | Consultation ---
History of Present Illness Consult date: 03/16/21 Reason for Consult: Seizure,low NA ,schizophrenia ,poor compliance with med History of present illness: Seizure History of present illness: 65-year-old male with known history of anxiety/psychosis, seizure disorder and alcohol dependence presents to the emergency room today with complaint of seizure. Patient is well-known to this facility and has been here on multiple occasions. He states he has been having nausea and vomiting with occasional cough over the past 2 to 3 days. He denies any fever or chills, no chest pain, no headache or dizziness and no diaphoresis. Patient also indicates that he has had suicidal ideation for a long time but denies harming himself at the moment. Patient states he is homeless and currently not vaccinated against COVID-19. His last alcohol intake was about 24 hours ago. Work-up in the emergency room today, significant findings were that of hyponatremia of 120, hypokalemia of 3.4, hypomagnesemia 1.2. Dilantin level was 0.8 and alcohol level was 0.19. Patient is being admitted today for electrolyte abnormalities, suicidal ideations and is history of seizure. He is currently placed on 1013. Past History Past Medical History: hypertension, seizures, other (Anxiety, psychosis, alcoholism, pancreatitis, legally blind, asthma) Past Surgical History: No surgical history Social history: alcohol abuse (Patient has a long-term history of alcohol abuse) Family history: no significant family history Medications and Allergies Allergies Allergy/AdvReac Type Severity Reaction Status Date / Time olanzapine [From Zyprexa] Allergy Nausea Verified 03/12/21 19:20 Home Medications Medication Instructions Recorded Confirmed Last Taken Type Aspirin EC [Halfprin EC] 81 mg PO QDAY #30 tablet 12/18/20 Unknown Rx Furosemide [Lasix TAB] 20 mg PO QDAY #30 tablet 12/18/20 Unknown Rx Losartan [Cozaar] 25 mg PO QDAY #30 tablet 12/18/20 Unknown Rx Spironolactone [Aldactone] 25 mg PO QDAY #30 tablet 12/18/20 Unknown Rx carvediloL [Coreg] 6.25 mg PO BID #60 tablet 12/18/20 Unknown Rx Folic Acid [Folvite] 1 mg PO QDAY #30 tablet 02/13/21 Unknown Rx Magnesium 200 mg PO DAILY #7 tablet 02/13/21 Unknown Rx Multivitamin Tab [Multiple Vitamin 1 each PO DAILY #30 tablet 02/13/21 Unknown Rx TAB (Theragran)] Thiamine [Vitamin B-1] 100 mg PO QDAY #30 tablet 02/13/21 Unknown Rx Phenytoin [Dilantin] 100 mg PO Q8HR #90 capsule 03/10/21 Unknown Rx hydrOXYzine HCL [Atarax] 25 mg PO Q6HR PRN #10 tablet 03/12/21 Unknown Rx Active Meds: Active Medications Acetaminophen (Acetaminophen 325 Mg Tab) 650 mg PO Q4H PRN PRN Reason: Pain MILD(1-3)/Fever >100.5/CAAL Phenytoin (Phenytoin 100 Mg Capsule.Er) 100 mg PO Q8HR DG Review of Systems Constitutional: no fever, no chills Ears, nose, mouth and throat: no nasal congestion, no sore throat Cardiovascular: no chest pain, no palpitations Respiratory: no cough, no shortness of breath Gastrointestinal: nausea, vomiting, no abdominal pain, no diarrhea Genitourinary Male: no dysuria, no hematuria, no flank pain, no nocturia Musculoskeletal: no neck pain, no low back pain Integumentary: no rash, no pruritis Neurological: no headaches, no change in speech Psychiatric: no anxiety, no depression, no confusion Endocrine: no polyphagia, no polydipsia, no polyuria, no nocturia Past History Past Medical History: hypertension, seizures, other (Anxiety, psychosis, alcoholism, pancreatitis, legally blind, asthma) Past Surgical History: No surgical history Social history: alcohol abuse (Patient has a long-term history of alcohol abuse) Family history: no significant family history Medications and Allergies Allergies Allergy/AdvReac Type Severity Reaction Status Date / Time olanzapine [From Zyprexa] Allergy Nausea Verified 03/12/21 19:20 Home Medications Medication Instructions Recorded Confirmed Last Taken Type Aspirin EC [Halfprin EC] 81 mg PO QDAY #30 tablet 12/18/20 Unknown Rx Furosemide [Lasix TAB] 20 mg PO QDAY #30 tablet 12/18/20 Unknown Rx Losartan [Cozaar] 25 mg PO QDAY #30 tablet 12/18/20 Unknown Rx Spironolactone [Aldactone] 25 mg PO QDAY #30 tablet 12/18/20 Unknown Rx carvediloL [Coreg] 6.25 mg PO BID #60 tablet 12/18/20 Unknown Rx Folic Acid [Folvite] 1 mg PO QDAY #30 tablet 02/13/21 Unknown Rx Magnesium 200 mg PO DAILY #7 tablet 02/13/21 Unknown Rx Multivitamin Tab [Multiple Vitamin 1 each PO DAILY #30 tablet 02/13/21 Unknown Rx TAB (Theragran)] Thiamine [Vitamin B-1] 100 mg PO QDAY #30 tablet 02/13/21 Unknown Rx Phenytoin [Dilantin] 100 mg PO Q8HR #90 capsule 03/10/21 Unknown Rx hydrOXYzine HCL [Atarax] 25 mg PO Q6HR PRN #10 tablet 03/12/21 Unknown Rx Active Meds: Active Medications Acetaminophen (Acetaminophen 325 Mg Tab) 650 mg PO Q4H PRN PRN Reason: Pain MILD(1-3)/Fever >100.5/CAAL Aspirin (Aspirin Ec 81 Mg Tab) 81 mg PO QDAY [facility] Last Admin: 03/15/21 10:28 Dose: 81 mg Carvedilol (Carvedilol 6.25 Mg Tab) 6.25 mg PO BID@0800,1700 [facility] Last Admin: 03/16/21 07:57 Dose: 6.25 mg Hydroxyzine HCl (Hydroxyzine Hcl 25 Mg Tab) 25 mg PO Q6HR PRN PRN Reason: Anxiety Sodium Chloride (Nacl 0.9% 1000 Ml) 1,000 mls @ 125 mls/hr IV DIRECT [facility] Lorazepam (Lorazepam 2 Mg/Ml Vial) 2 mg IV Q1H PRN PRN Reason: CIWA-Ar 8-15 Last Admin: 03/16/21 07:57 Dose: 2 mg Lorazepam (Lorazepam 2 Mg/Ml Vial) 4 mg IV Q1H PRN PRN Reason: CIWA-Ar 16-25 Lorazepam (Lorazepam 2 Mg/Ml Vial) 4 mg IV Q15MIN PRN PRN Reason: CIWA-Ar >25 Losartan Potassium (Losartan 25 Mg Tab) 25 mg PO QDAY [facility] Last Admin: 03/15/21 15:58 Dose: Not Given Magnesium Hydroxide (Magnesium Hydroxide (Mom) Oral Liqd Udc) 30 ml PO Q4H PRN PRN Reason: Constipation Magnesium Oxide (Magnesium Oxide 400 Mg Tab) 200 mg PO DAILY [facility] Last Admin: 03/15/21 10:29 Dose: 200 mg Morphine Sulfate (Morphine 2 Mg/1 Ml Inj) 2 mg IV Q4H PRN PRN Reason: Pain, Moderate (4-6) Morphine Sulfate (Morphine 4 Mg/1 Ml Inj) 4 mg IV Q4H PRN PRN Reason: Pain , Severe (7-10) Ondansetron HCl (Ondansetron 4 Mg/2 Ml Inj) 4 mg IV Q8H PRN PRN Reason: Nausea And Vomiting Phenytoin (Phenytoin 100 Mg Capsule.Er) 100 mg PO Q8HR [facility] Last Admin: 03/16/21 07:42 Dose: 100 mg Sodium Chloride (Sodium Chloride 0.9% 10 Ml Flush Syringe) 10 ml IV BID [facility] Last Admin: 03/15/21 23:17 Dose: Not Given Sodium Chloride (Sodium Chloride 0.9% 10 Ml Flush Syringe) 10 ml IV PRN PRN PRN Reason: LINE FLUSH Thiamine HCl (Thiamine 100 Mg Tab) 100 mg PO QDAY [facility] Physical Examination - Vital Signs Vital Signs: Vital Signs Temp Pulse Resp BP Pulse Ox 97.8 F 99 H 20 145/78 96 03/14/21 23:49 03/14/21 23:49 03/14/21 23:49 03/14/21 23:49 03/14/21 23:49 - Constitutional General appearance: comfortable - EENT EENT: Present: PERRL, mucous membranes moist - Respiratory Respiratory: Present: chest non-tender, lungs clear, rhonchi - Cardiovascular Cardiovascular: Present: regular rate, normal S1, normal S2 Extremities: Present: no peripheral edema bilatateraly, no clubbing, cyanosis - Gastrointestinal Gastrointestinal: Present: normoactive bowel sounds - Integumentary Integumentary: Present: normal - Neurologic Cranial nerve examination: PERRL, EOMI, intact Speech examination: intact Sensorimotor examination: intact Detailed motor examination: grossly full strength in Results - Laboratory Findings CBC and BMP: 03/16/21 03:59 03/16/21 03:59 Abnormal Lab Findings: Abnormal Labs 03/14/21 03/14/21 03/14/21 22:43 22:43 22:43 WBC Hgb 15.3 H MCV 107 H MCH 36 H RDW 21.0 H [place] % (Auto) 15.5 H Lymph # (Auto) 1.1 L Sodium 120 L Potassium 3.4 L Chloride 83.4 L BUN 8 L Creatinine 0.5 L Calcium 8.2 L Magnesium Salicylates < 0.3 L Acetaminophen Phenytoin 0.8 L Plasma/Serum Alcohol Coronavirus (PCR) 03/14/21 03/14/21 03/14/21 22:43 22:43 22:43 WBC Hgb MCV MCH RDW [place] % (Auto) Lymph # (Auto) Sodium Potassium Chloride BUN Creatinine Calcium Magnesium 1.20 L Salicylates Acetaminophen 5.0 L Phenytoin Plasma/Serum Alcohol 0.19 H Coronavirus (PCR) 03/15/21 03/15/21 03/16/21 09:09 10:38 03:59 WBC 3.7 L Hgb MCV 108 H MCH 36 H RDW 20.4 H [place] % (Auto) Lymph # (Auto) Sodium 125 L Potassium Chloride 87.6 L BUN 7 L Creatinine 0.6 L Calcium Magnesium 1.20 L Salicylates Acetaminophen Phenytoin Plasma/Serum Alcohol Coronavirus (PCR) Positive A 03/16/21 03:59 WBC Hgb MCV MCH RDW [place] % (Auto) Lymph # (Auto) Sodium 133 L D Potassium 3.2 L Chloride 95.2 L BUN Creatinine 0.7 L Calcium Magnesium Salicylates Acetaminophen Phenytoin Plasma/Serum Alcohol Coronavirus (PCR) Assessment and Plan Assessment and Plan - Patient Problems # Seizures, as per pt. he is not taking medication can not afford it -placed on phenytoin and thiamine IV -patient placed on Dilantin. can take X3 tablet 100 mg once a day -Will place on seizure precautions.{ No driving, avoid alcohol,} -EEG -ativan prn for seizure -Ct brain consider MRI if not done before -UDS is unremarkable # COVID positive # Alcohol dependence -Patient will be placed on the CIWA protoco # Acute hyponatremia -Patient placed on IV fluid normal saline. -Will monitor chemistry. # Hypomagnesemia,Hypokalemia -Possibly secondary to his alcohol dependence. -Magnesium will be repleted. Will monitor magnesium level. # DVT prophylaxis -Patient placed on subcutaneous heparin. # Full code status -Patient is full code. will follow
[2021-03-16] MEDS ORDERED: POTASSIUM CHLORIDE ER 20 MEQ TAB PO NR (09:30)
[2021-03-16] MEDS: ASPIRIN EC 81 MG TAB PO SCH (10:27)
[2021-03-16] MEDS: MAGNESIUM OXIDE 400 MG TAB PO SCH (10:27)
--- NOTE | 2021-03-16 10:32 | Progress Note ---
Subjective Date of service: 03/16/21 Principal diagnosis: hyponatremia Interval history: Impression/Plan: Hyponatremia: Improving in the setting of hypokalemia add NS with KCL today Urine specific gravity was only 1.003, Will check urine sodium, osmolality, uric acid, #Mild hypocalcemia underlying vitamin D deficiency. patient has been on Dilantin, check vitamin D level Empirically can replace with 5000 units daily for now #Suicidal ideations, seizure disorder, being followed by psychiatry Source of information: From the current chart SUbjective: labs and chart reviewed 65-year-old patient admitted here with seizure disorder, was noted to have hyponatremia, has also not been taking his Dilantin for the past 1 month, has had some nausea vomiting and poor by mouth intake for last 3-4 days Prior to admission patient was taking spironolactone as well as furosemide in addition to several other medications, Even to this hospitalization were noted Physical examination Vitals: Reviewed General: No acute distress HEENT: Oral mucosa moist no pallor or icterus Neck: Supple without any JVD thyromegaly or nodular mass Chest: Clear to auscultation Heart: Regular rate and rhythm S1-S2 heard no S3-S4 Abdomen: Soft nontender, bowel sounds present no renal bruit no suprapubic masses no CVA tenderness noted Extremity: Minimal edema dry skin no peripheral cyanosis Endocrine: Thyroid not enlarged Psychiatric: No agitation and aggression noted Musculoskeletal: No joint effusion noted Objective - Vital Signs Vital signs: Vital Signs - 12hr 03/16/21 08:09 O2 Sat by Pulse 97 Oximetry - Lab 03/16/21 03:59 03/16/21 03:59 Most recent lab results Calcium 8.6 mg/dL (8.4-10.2) 03/16/21 03:59 Magnesium 1.20 mg/dL (1.7-2.3) L 03/15/21 10:38 Urine Sodium 11 mmol/L 03/15/21 12:51 Medications & Allergies - Medications Allergies/Adverse Reactions: Allergies olanzapine [From Zyprexa] Allergy (Verified 03/12/21 19:20) Nausea Home Medications: Home Medications Medication Instructions Recorded Confirmed Last Taken Type Aspirin EC [Halfprin EC] 81 mg PO QDAY #30 tablet 12/18/20 Unknown Rx Furosemide [Lasix TAB] 20 mg PO QDAY #30 tablet 12/18/20 Unknown Rx Losartan [Cozaar] 25 mg PO QDAY #30 tablet 12/18/20 Unknown Rx Spironolactone [Aldactone] 25 mg PO QDAY #30 tablet 12/18/20 Unknown Rx carvediloL [Coreg] 6.25 mg PO BID #60 tablet 12/18/20 Unknown Rx Folic Acid [Folvite] 1 mg PO QDAY #30 tablet 02/13/21 Unknown Rx Magnesium 200 mg PO DAILY #7 tablet 02/13/21 Unknown Rx Multivitamin Tab [Multiple Vitamin 1 each PO DAILY #30 tablet 02/13/21 Unknown Rx TAB (Theragran)] Thiamine [Vitamin B-1] 100 mg PO QDAY #30 tablet 02/13/21 Unknown Rx Phenytoin [Dilantin] 100 mg PO Q8HR #90 capsule 03/10/21 Unknown Rx hydrOXYzine HCL [Atarax] 25 mg PO Q6HR PRN #10 tablet 03/12/21 Unknown Rx Active Medications: Generic Name Dose Route Start Last Admin Trade Name Freq PRN Reason Stop Dose Admin Acetaminophen 650 mg 03/15/21 00:46 Acetaminophen 325 Mg Tab PO Q4H PRN Pain MILD(1-3)/Fever >100.5/CAAL Aspirin 81 mg 03/15/21 10:00 03/16/21 10:27 Aspirin Ec 81 Mg Tab PO 81 mg QDAY DG Administration Carvedilol 6.25 mg 03/15/21 08:00 03/16/21 07:57 Carvedilol 6.25 Mg Tab PO 6.25 mg BID@0800,1700 DG Administration Hydroxyzine HCl 25 mg 03/15/21 12:08 Hydroxyzine Hcl 25 Mg Tab PO Q6HR PRN Anxiety Potassium Chloride/Sodium Chloride 20 meq in 1,000 mls @ 100 mls/hr 03/16/21 11:00 Ns/Kcl 20meq IV DIRECT DG Lorazepam 2 mg 03/15/21 00:46 03/16/21 07:57 Lorazepam 2 Mg/Ml Vial IV 2 mg Q1H PRN Administration CIWA-Ar 8-15 Lorazepam 4 mg 03/15/21 00:46 Lorazepam 2 Mg/Ml Vial IV Q1H PRN CIWA-Ar 16-25 Lorazepam 4 mg 03/15/21 00:46 Lorazepam 2 Mg/Ml Vial IV Q15MIN PRN CIWA-Ar >25 Losartan Potassium 25 mg 03/15/21 10:00 03/15/21 15:58 Losartan 25 Mg Tab PO Not Given QDAY DG Magnesium Hydroxide 30 ml 03/15/21 00:46 Magnesium Hydroxide (Mom) Oral Liqd Udc PO Q4H PRN Constipation Magnesium Oxide 200 mg 03/15/21 10:00 03/16/21 10:27 Magnesium Oxide 400 Mg Tab PO 200 mg DAILY DG Administration Morphine Sulfate 2 mg 03/15/21 00:46 Morphine 2 Mg/1 Ml Inj IV Q4H PRN Pain, Moderate (4-6) Morphine Sulfate 4 mg 03/15/21 00:46 Morphine 4 Mg/1 Ml Inj IV Q4H PRN Pain , Severe (7-10) Ondansetron HCl 4 mg 03/15/21 00:46 Ondansetron 4 Mg/2 Ml Inj IV Q8H PRN Nausea And Vomiting Phenytoin 100 mg 03/15/21 06:00 03/16/21 07:42 Phenytoin 100 Mg Capsule.Er PO 100 mg Q8HR DG Administration Potassium Chloride 40 meq 03/16/21 09:30 Potassium Chloride Er 20 Meq Tab PO 03/16/21 13:00 ONCE NR Sodium Chloride 10 ml 03/15/21 10:00 03/16/21 10:27 Sodium Chloride 0.9% 10 Ml Flush Syringe IV 10 ml BID DG Administration Sodium Chloride 10 ml 03/15/21 00:46 Sodium Chloride 0.9% 10 Ml Flush Syringe IV PRN PRN LINE FLUSH Thiamine HCl 100 mg 03/16/21 10:00 Thiamine 100 Mg Tab PO QDAY DG
[2021-03-16] MEDS ORDERED: NACL 0.9%/KCL 20 MEQ 20 MEQ/1,000 ML BAG IV SCH (11:00)
[2021-03-16] MEDS: LOSARTAN 25 MG TAB PO SCH (11:04)
[2021-03-16] MEDS: THIAMINE 100 MG TAB PO SCH (14:30)
--- NOTE | 2021-03-16 15:48 | Progress Note ---
Subjective Date of service: 03/16/21 Principal diagnosis: hyponatremia Interval history: 65-year-old male with known history of anxiety/psychosis, seizure disorder and alcohol dependence presents to the emergency room today with complaint of seizure. Patient is well-known to this facility and has been here on multiple occasions. He states he has been having nausea and vomiting with occasional cough over the past 2 to 3 days. He denies any fever or chills, no chest pain, no headache or dizziness and no diaphoresis. Patient also indicates that he has had suicidal ideation for a long time but denies harming himself at the moment. Patient states he is homeless and currently notes vaccinated against COVID-19. His last alcohol intake was about 24 hours ago. Work-up in the emergency room today, significant findings were that of hyponatremia of 120, hypokalemia of 3.4, hypomagnesemia 1.2. Dilantin level was 0.8 and alcohol level was 0.19. Patient is being admitted today for electrolyte abnormalities, suicidal ideations and is history of seizure. He is currently placed on 1013. 03/16 patient is alert and oriented and responds to questions appropriately. States he has gout and states he needs Percocet. Nephrology and neurology notes reviewed. Lab results reviewed 12 point review of systems is essentially unremarkable except for pain in the feet Patient denies any chest pain or shortness of breath. He does complain of anxiety and states he has schizophrenia Assessment and plan Acute hyponatremia Improving well serum sodium up Serum sodium improved to 133 this morning Monitor electrolytes Nephrology note reviewed History of seizure disorder Neurology note reviewed Continue Dilantin 100 mg 3 times daily EtOH dependence Continue [facility] protocol History of schizophrenia/anxiety Psychiatry nurse practitioner note reviewed Continue management per psych recommendations Hypokalemia Potassium supplements ordered Monitor electrolytes Hypomagnesemia Magnesium supplemented Recheck magnesium level in a.m. Erythema of the feet No signs of cellulitis Objective - Constitutional Vitals: Vital Signs - 12hr 03/16/21 03/16/21 03/16/21 08:09 09:39 11:04 Temperature 98.0 F Pulse Rate 99 H 99 H Respiratory 20 Rate Blood Pressure 145/88 Blood Pressure 159/98 [Left] O2 Sat by Pulse 97 99 Oximetry 03/16/21 13:15 Temperature Pulse Rate 89 Respiratory 19 Rate Blood Pressure Blood Pressure 136/79 [Left] O2 Sat by Pulse 96 Oximetry General appearance: Present: no acute distress, well-nourished - EENT Eyes: PERRL, EOM intact ENT: hearing intact, clear oral mucosa Ears: bilateral: normal - Neck Neck: supple, normal ROM - Respiratory Respiratory effort: normal Respiratory: bilateral: CTA, diminished - Cardiovascular Rhythm: regular Heart Sounds: Present: S1 & S2. Absent: gallop, rub Extremities: pulses intact Extremity abnormal: edema (Pedal edema with mild erythema) - Gastrointestinal General gastrointestinal: Present: soft, non-tender, non-distended Rectal Exam: deferred - Genitourinary Male genitourinary: deferred - Integumentary Integumentary: warm, dry - Musculoskeletal Musculoskeletal: 1, strength equal bilaterally - Neurologic Neurologic: moves all extremities - Psychiatric Psychiatric: memory intact, appropriate mood/affect, intact judgment & insight - Labs CBC & Chem 7: 03/16/21 03:59 03/16/21 03:59 Labs: Abnormal lab results 03/15/21 03/16/21 03/16/21 Range/Units 09:09 03:59 03:59 WBC 3.7 L (4.5-11.0) K/mm3 MCV 108 H (84-94) fl MCH 36 H (28-32) pg RDW 20.4 H (13.2-15.2) % Sodium 133 L D (137-145) mmol/L Potassium 3.2 L (3.6-5.0) mmol/L Chloride 95.2 L (98-107) mmol/L Creatinine 0.7 L (0.8-1.3) mg/dL Coronavirus (PCR) Positive A (Negative)
[2021-03-17 05:12] LABS: Blood Urea Nitrogen 10 mg/dL (9-20); Calcium 8.4 mg/dL (8.4-10.2); Hemolysis Index 45
[2021-03-17 05:43] LABS: BUN/Creatinine Ratio 20
[2021-03-17] MEDS ORDERED: POTASSIUM CHLORIDE ER 20 MEQ TAB PO NR ×2 (08:21→09:50)
--- NOTE | 2021-03-17 09:53 | Progress Note ---
Subjective Date of service: 03/17/21 Principal diagnosis: hyponatremia Interval history: Impression/Plan: Hyponatremia: Improving in the setting of hypokalemia add NS with KCL today Urine specific gravity was only 1.003, Will check urine sodium, osmolality, uric acid, #hypomagnesemia add mag sulfate and replete potassium #Mild hypocalcemia underlying vitamin D deficiency. patient has been on Dilantin, check vitamin D level Empirically can replace with 5000 units daily for now #Suicidal ideations, seizure disorder, being followed by psychiatry Source of information: From the current chart SUbjective: labs and chart reviewed events noted Physical examination Vitals: Reviewed General: No acute distress HEENT: Oral mucosa moist no pallor or icterus Neck: Supple without any JVD thyromegaly or nodular mass Chest: Clear to auscultation Heart: Regular rate and rhythm S1-S2 heard no S3-S4 Abdomen: Soft nontender, bowel sounds present no renal bruit no suprapubic masses no CVA tenderness noted Extremity: Minimal edema dry skin no peripheral cyanosis Endocrine: Thyroid not enlarged Psychiatric: No agitation and aggression noted Musculoskeletal: No joint effusion noted Objective - Lab 03/16/21 03:59 03/17/21 03:24 Most recent lab results Calcium 8.4 mg/dL (8.4-10.2) 03/17/21 03:24 Magnesium 1.30 mg/dL (1.7-2.3) L 03/17/21 03:24 Urine Sodium 11 mmol/L 03/15/21 12:51 Medications & Allergies - Medications Allergies/Adverse Reactions: Allergies olanzapine [From Zyprexa] Allergy (Verified 03/12/21 19:20) Nausea Home Medications: Home Medications Medication Instructions Recorded Confirmed Last Taken Type Aspirin EC [Halfprin EC] 81 mg PO QDAY #30 tablet 12/18/20 Unknown Rx Furosemide [Lasix TAB] 20 mg PO QDAY #30 tablet 12/18/20 Unknown Rx Losartan [Cozaar] 25 mg PO QDAY #30 tablet 12/18/20 Unknown Rx Spironolactone [Aldactone] 25 mg PO QDAY #30 tablet 12/18/20 Unknown Rx carvediloL [Coreg] 6.25 mg PO BID #60 tablet 12/18/20 Unknown Rx Folic Acid [Folvite] 1 mg PO QDAY #30 tablet 02/13/21 Unknown Rx Magnesium 200 mg PO DAILY #7 tablet 02/13/21 Unknown Rx Multivitamin Tab [Multiple Vitamin 1 each PO DAILY #30 tablet 02/13/21 Unknown Rx TAB (Theragran)] Thiamine [Vitamin B-1] 100 mg PO QDAY #30 tablet 02/13/21 Unknown Rx Phenytoin [Dilantin] 100 mg PO Q8HR #90 capsule 03/10/21 Unknown Rx hydrOXYzine HCL [Atarax] 25 mg PO Q6HR PRN #10 tablet 03/12/21 Unknown Rx Active Medications: Generic Name Dose Route Start Last Admin Trade Name Freq PRN Reason Stop Dose Admin Acetaminophen 650 mg 03/15/21 00:46 Acetaminophen 325 Mg Tab PO Q4H PRN Pain MILD(1-3)/Fever >100.5/CAAL Aspirin 81 mg 03/15/21 10:00 03/16/21 10:27 Aspirin Ec 81 Mg Tab PO 81 mg QDAY DG Administration Carvedilol 6.25 mg 03/15/21 08:00 03/16/21 16:50 Carvedilol 6.25 Mg Tab PO 6.25 mg BID@0800,1700 DG Administration Hydroxyzine HCl 25 mg 03/15/21 12:08 Hydroxyzine Hcl 25 Mg Tab PO Q6HR PRN Anxiety Potassium Chloride/Sodium Chloride 20 meq in 1,000 mls @ 100 mls/hr 03/16/21 11:00 Ns/Kcl 20meq IV DIRECT DG Magnesium Sulfate 4 gm in 100 mls @ 25 mls/hr 03/17/21 10:00 Magnesium Sulfate 4gm/100ml IV 03/17/21 13:59 ONCE ONE Lorazepam 2 mg 03/15/21 00:46 03/16/21 07:57 Lorazepam 2 Mg/Ml Vial IV 2 mg Q1H PRN Administration CIWA-Ar 8-15 Lorazepam 4 mg 03/15/21 00:46 Lorazepam 2 Mg/Ml Vial IV Q1H PRN CIWA-Ar 16-25 Lorazepam 4 mg 03/15/21 00:46 Lorazepam 2 Mg/Ml Vial IV Q15MIN PRN CIWA-Ar >25 Losartan Potassium 25 mg 03/15/21 10:00 03/16/21 11:04 Losartan 25 Mg Tab PO 25 mg QDAY DG Administration Magnesium Hydroxide 30 ml 03/15/21 00:46 Magnesium Hydroxide (Mom) Oral Liqd Udc PO Q4H PRN Constipation Magnesium Oxide 200 mg 03/15/21 10:00 03/16/21 10:27 Magnesium Oxide 400 Mg Tab PO 200 mg DAILY DG Administration Ondansetron HCl 4 mg 03/15/21 00:46 Ondansetron 4 Mg/2 Ml Inj IV Q8H PRN Nausea And Vomiting Phenytoin 300 mg 03/17/21 10:00 Phenytoin 100 Mg Capsule.Er PO DAILY DG Potassium Chloride 40 meq 03/17/21 08:21 Potassium Chloride Er 20 Meq Tab PO 03/17/21 13:00 ONCE NR Potassium Chloride 40 meq 03/17/21 09:50 Potassium Chloride Er 20 Meq Tab PO 03/17/21 09:51 ONCE ONE Sodium Chloride 10 ml 03/15/21 10:00 03/16/21 10:27 Sodium Chloride 0.9% 10 Ml Flush Syringe IV 10 ml BID DG Administration Sodium Chloride 10 ml 03/15/21 00:46 Sodium Chloride 0.9% 10 Ml Flush Syringe IV PRN PRN LINE FLUSH Thiamine HCl 100 mg 03/16/21 10:00 03/16/21 14:30 Thiamine 100 Mg Tab PO Not Given QDAY DG
[2021-03-17] MEDS ORDERED: MAGNESIUM SULFATE 4 GM/100 ML BAG IV ONE (10:00)
--- NOTE | 2021-03-17 11:23 | Progress Note ---
Subjective - Reason for Consult Consult date: 03/17/21 Reason for consult: suicidal ideation - Chief Complaint Chief complaint: The patient was seen this morning. He states that he is "ok" but complains of pain to his feet. The patint denies any current suicidal/homicidal ideation but admits having hallucinations " just friendly stuff. " He denies visual hallucinations. REVIEW OF SYSTEMS Constitutional: Negative for weight loss ENT: Negative for stridor Respiratory: Negative for cough or hemoptysis All other systems reviewed and are negative MENTAL STATUS EXAMINATION General Appearance and Behavior: Age appropriate, wearing appropriate clothes, cooperative, polite with questioning, fair eye contact, calm Cooperation: cooperative Psychomotor Behavior: Psychomotor normal Mood: "ok" Affect and affective range: congruent with stated mood Thought Process: goal directed Thought Content: Denies Speech: Normal volume, Regular rate and rhythm Suicidal Ideation: Denies Homicidal Ideation: Denies Hallucination: Yes Delusions: None elicited Impulse Control: Intact Insight and Judgment: Limited Memory: Intact Attention:Distractible Orientation: Alert and oriented Diagnoses: (1)Schizophrenia- F20.9 Treatment Plan Continue home meds Continue Vistaril 25mg po BID PSYCHOTHERAPY: Supportive psychotherapy provided MEDICAL: Per primary team DELIRIUM PRECAUTIONS: Please re-orient patient frequently, keep lights on during the day, and minimize benzodiazepines and opiates as these medications could worsen patient's confusion. INTERNET CONSULTANT: Per medical team DISPOSITION:Do not recommend acute psychiatric inpatient treatment. test hole driller will provide patient with psychiatric outpatient resources. Will sign off. Please contact with any questions and/or concerns. Thank you for the consult. Case staffed with Dr. Patel Medications and Allergies Mental Status Exam Mental Status Exam - Vital signs Last Vital Signs Temp 98.9 F 03/16/21 17:02 Pulse 111 H 03/16/21 17:02 Resp 18 03/16/21 17:02 BP 127/85 03/16/21 17:02 Pulse Ox 96 03/16/21 17:02
[2021-03-17] MEDS: PHENYTOIN 100 MG CAPSULE.ER PO SCH (11:37)
[2021-03-17] MEDS: ASPIRIN EC 81 MG TAB PO SCH (11:37)
[2021-03-17] MEDS: carvediloL 6.25 MG TAB PO SCH (11:37)
[2021-03-17] MEDS: THIAMINE 100 MG TAB PO SCH (11:37)
[2021-03-17] MEDS: LOSARTAN 25 MG TAB PO SCH (11:37)
[2021-03-17] MEDS: MAGNESIUM OXIDE 400 MG TAB PO SCH (11:37)
--- NOTE | 2021-03-17 12:28 | Progress Note ---
Assessment and Plan Assessment and Plan - Patient Problems # Seizures, as per pt. he is not taking medication can not afford it -placed on phenytoin and thiamine IV -patient placed on Dilantin. can take X3 tablet 100 mg once a day -Will place on seizure precautions.{ No driving, avoid alcohol,} -EEG is pending -ativan prn for seizure - MRI brain ,none is in file -UDS is unremarkable # COVID positive # Alcohol dependence -Patient will be placed on the CIWA protoco # Gout -always complains of pain and wants morphine and ativan !!! # Acute hyponatremia-- improved #136 today -Patient placed on IV fluid normal saline. -Will monitor chemistry. # Hypomagnesemia,Hypokalemia -Possibly secondary to his alcohol dependence. -Magnesium will be repleted. Will monitor magnesium level. # DVT prophylaxis -Patient placed on subcutaneous heparin. # Full code status -Patient is full code. will follow as needed Subjective Date of service: 03/17/21 Principal diagnosis: hyponatremia, seizure,alcoholism,gout Interval history: no seizure reported he is asking for morphin and ativan to help with his gout !!! NA#136 today EEG and MRI not done magnesium#1.3 Objective - General Apperance Constitutional: comfortable - EENT EENT: PERRL, mucous membranes moist - Respiratory Respiratory: lungs clear, rhonchi - Cardiovascular Cardiovascular: regular rate, normal S1, normal S2 Extremities: no peripheral edema bilat, no clubbing, cyanosis - Gastrointestinal Gastrointestinal: normoactive bowel sounds - Integumentary Integumentary: normal - Neurologic Cranial nerve examination: PERRL, EOMI, intact Detailed motor examination: grossly full strength in - Laboratory Findings CBC and BMP: 03/16/21 03:59 03/17/21 03:24 Abnormal Lab Findings: Abnormal Labs 03/14/21 03/14/21 03/14/21 22:43 22:43 22:43 WBC Hgb 15.3 H MCV 107 H MCH 36 H RDW 21.0 H [place] % (Auto) 15.5 H Lymph # (Auto) 1.1 L Sodium 120 L Potassium 3.4 L Chloride 83.4 L BUN 8 L Creatinine 0.5 L Calcium 8.2 L Magnesium Salicylates < 0.3 L Acetaminophen Phenytoin 0.8 L Plasma/Serum Alcohol Coronavirus (PCR) 03/14/21 03/14/21 03/14/21 22:43 22:43 22:43 WBC Hgb MCV MCH RDW [place] % (Auto) Lymph # (Auto) Sodium Potassium Chloride BUN Creatinine Calcium Magnesium 1.20 L Salicylates Acetaminophen 5.0 L Phenytoin Plasma/Serum Alcohol 0.19 H Coronavirus (PCR) 03/15/21 03/15/21 03/16/21 09:09 10:38 03:59 WBC 3.7 L Hgb MCV 108 H MCH 36 H RDW 20.4 H [place] % (Auto) Lymph # (Auto) Sodium 125 L Potassium Chloride 87.6 L BUN 7 L Creatinine 0.6 L Calcium Magnesium 1.20 L Salicylates Acetaminophen Phenytoin Plasma/Serum Alcohol Coronavirus (PCR) Positive A 03/16/21 03/17/21 03/17/21 03:59 03:24 10:31 WBC Hgb MCV MCH RDW [place] % (Auto) Lymph # (Auto) Sodium 133 L D 136 L Potassium 3.2 L 3.0 L Chloride 95.2 L 97.7 L BUN Creatinine 0.7 L 0.5 L Calcium Magnesium 1.30 L Salicylates Acetaminophen Phenytoin 6.9 L Plasma/Serum Alcohol Coronavirus (PCR)
--- NOTE | 2021-03-17 17:24 | Magnetic Resonance Report ---
NONENHANCED MR SCAN OF THE BRAIN: INDICATION / CLINICAL INFORMATION: Seizure disorder. TECHNIQUE: Multiplanar, multisequence MR images of the brain obtained before and after 18 mL of Clariscan COMPARISON: CT scan of the head obtained yesterday FINDINGS: BRAIN / INTRACRANIAL CONTENTS: No acute ischemia, acute hemorrhage, mass effect, midline shift, or hy drocephalus. No chronic infarct or atrophy. No significant white matter abnormality. No enhancing pa renchymal or meningeal lesions Given the history of seizures, no space occupying lesion in the temporal or in the frontal lobes; mod erate volume loss in the hippocampi; no MR findings to suggest focal cortical dysplasia or nodular he terotopia Confluent periventricular and scattered the deep hemispheric white matter lesions probably due to chr onic small vessel disease; No enhancing parenchymal or meningeal lesions CRANIOCERVICAL JUNCTION: No significant abnormality. VASCULAR FLOW-VOIDS: No significant abnormality. ORBITS: No significant abnormality of visualized orbits. SINUSES / MASTOIDS: Mucosal thickening in the mastoid air cells bilaterally more on the right side an d in the right middle ear cavity ADDITIONAL FINDINGS: None. IMPRESSION: 1. No acute focal parenchymal lesion in the brain Signer Name: Allen Sotelo MD Signed: 03/17/2021 5:20 PM Workstation Name: [id number]
--- NOTE | 2021-03-17 18:58 | Progress Note ---
Assessment and Plan Assessment and plan: 65-year-old male with known history of anxiety/psychosis, seizure disorder and alcohol dependence presents to the emergency room today with complaint of seizure. Patient is well-known to this facility and has been here on multiple occasions. He states he has been having nausea and vomiting with occasional cough over the past 2 to 3 days. He denies any fever or chills, no chest pain, no headache or dizziness and no diaphoresis. Patient also indicates that he has had suicidal ideation for a long time but denies harming himself at the moment. Patient states he is homeless and currently notes vaccinated against COVID-19. His last alcohol intake was about 24 hours ago. Work-up in the emergency room today, significant findings were that of hyponatremia of 120, hypokalemia of 3.4, hypomagnesemia 1.2. Dilantin level was 0.8 and alcohol level was 0.19. Patient is being admitted today for electrolyte abnormalities, suicidal ideations and is history of seizure. He is currently placed on 1013. 03/16 patient is alert and oriented and responds to questions appropriately. States he has gout and states he needs Percocet. Nephrology and neurology notes reviewed. Lab results reviewed 12 point review of systems is essentially unremarkable except for pain in the feet Patient denies any chest pain or shortness of breath. He does complain of anxiety and states he has schizophrenia Assessment and plan Acute hyponatremia Improving well serum sodium up Serum sodium improved to 133 this morning Monitor electrolytes Nephrology note reviewed History of seizure disorder Neurology note reviewed Continue Dilantin 100 mg 3 times daily EtOH dependence Continue [facility] protocol History of schizophrenia/anxiety Psychiatry nurse practitioner note reviewed Continue management per psych recommendations Hypokalemia Potassium supplements ordered Monitor electrolytes Hypomagnesemia Magnesium supplemented Recheck magnesium level in a.m. Chronic pain in feet No signs of cellulitis or inflammation suggestive of gout 03/17/2021: Patient reports that he he has been homeless for 5 years or more and was freezing when he was out there at a store and claims that then he suffered a seizure episode. Patient reports that he has been having seizures for years b ut not taking Dilantin since months. No seizure activity reported since admitted, Dilantin resumed. Sodium improved from 122 136. Potassium today 3.0 and magnesium 1.3. Being replenished. Vital signs stable with a heart rate around 100. His only complaint currently is pain in his feet from gout. Disposition: Patient will be discharged when electrolyte deficiencies corrected. Discussed with the rn case management regarding the chronic homelessness and discharge planning, possible discharge tomorrow. History Interval history: Patient reports that he he has been homeless for 5 years or more and was freezing when he was out there at a store and claims that then he suffered a seizure episode. Patient reports that he has been having seizures for years but not taking Dilantin since months. No seizure activity reported since admitted, Dilantin resumed. Sodium improved from 122 136. Potassium today 3.0 and magnesium 1.3. Being replenished. Vital signs stable with a heart rate around 100. His only complaint currently is pain in his feet from gout. Hospitalist Physical - Constitutional Vitals: Temp Pulse Resp BP Pulse Ox 98.9 F 111 H 18 127/85 96 03/16/21 17:02 03/16/21 17:02 03/16/21 17:02 03/16/21 17:02 03/16/21 17:02 General appearance: Present: no acute distress, well-nourished - EENT Eyes: Present: PERRL, EOM intact ENT: hearing intact - Neck Neck: Present: supple - Respiratory Respiratory effort: normal Respiratory: bilateral: CTA - Cardiovascular Rhythm: regular - Extremities Extremities: No edema (No erythema or inflammatory changes suggestive of acute gout attack in feet. Pedal pulses intact. No ulcers.) Peripheral Pulses: within normal limits - Abdominal General gastrointestinal: soft, non-tender - Integumentary Integumentary: Absent: rash - Psychiatric Psychiatric: appropriate mood/affect - Neurologic Neurologic: other (Nonfocal motor exam) Results - Labs CBC & Chem 7: 03/16/21 03:59 03/17/21 03:24 Labs: Laboratory Last Values WBC 3.7 K/mm3 (4.5-11.0) L 03/16/21 03:59 RBC 4.06 M/mm3 (3.65-5.03) 03/16/21 03:59 Hgb 14.8 gm/dl (11.8-15.2) 03/16/21 03:59 Hct 43.9 % (35.5-45.6) 03/16/21 03:59 MCV 108 fl (84-94) H 03/16/21 03:59 MCH 36 pg (28-32) H 03/16/21 03:59 MCHC 34 % (32-34) 03/16/21 03:59 RDW 20.4 % (13.2-15.2) H 03/16/21 03:59 Plt Count 177 K/mm3 (140-440) 03/16/21 03:59 Lymph % (Auto) 19.8 % (13.4-35.0) 03/14/21 22:43 [place] % (Auto) Video Coordinator 03/16/21 03:59 Eos % (Auto) Video Coordinator 03/16/21 03:59 Baso % (Auto) Video Coordinator 03/16/21 03:59 Lymph # (Auto) 1.1 K/mm3 (1.2-5.4) L 03/14/21 22:43 [place] # (Auto) Video Coordinator 03/16/21 03:59 Eos # (Auto) 0.1 K/mm3 (0.0-0.4) 03/14/21 22:43 Baso # (Auto) Video Coordinator 03/16/21 03:59 Total Counted Cancelled 03/16/21 03:59 Seg Neutrophils % Video Coordinator 03/16/21 03:59 Seg Neuts % (Manual) Cancelled 03/16/21 03:59 Band Neutrophils % Cancelled 03/16/21 03:59 Lymphocytes % (Manual) Cancelled 03/16/21 03:59 Reactive Lymphs % (Man) Cancelled 03/16/21 03:59 Monocytes % (Manual) Cancelled 03/16/21 03:59 Eosinophils % (Manual) Cancelled 03/16/21 03:59 Basophils % (Manual) Cancelled 03/16/21 03:59 Metamyelocytes % Cancelled 03/16/21 03:59 Myelocytes % Cancelled 03/16/21 03:59 Promyelocytes % Cancelled 03/16/21 03:59 Blast Cells % Cancelled 03/16/21 03:59 Nucleated RBC % Cancelled 03/16/21 03:59 Seg Neutrophils # Video Coordinator 03/16/21 03:59 Seg Neutrophils # Man Cancelled 03/16/21 03:59 Band Neutrophils # Cancelled 03/16/21 03:59 Lymphocytes # (Manual) Cancelled 03/16/21 03:59 Abs React Lymphs (Man) Cancelled 03/16/21 03:59 Monocytes # (Manual) Cancelled 03/16/21 03:59 Eosinophils # (Manual) Cancelled 03/16/21 03:59 Basophils # (Manual) Cancelled 03/16/21 03:59 Metamyelocytes # Cancelled 03/16/21 03:59 Myelocytes # Cancelled 03/16/21 03:59 Promyelocytes # Cancelled 03/16/21 03:59 Blast Cells # Cancelled 03/16/21 03:59 WBC Morphology Cancelled 03/16/21 03:59 Hypersegmented Neuts Cancelled 03/16/21 03:59 Hyposegmented Neuts Cancelled 03/16/21 03:59 Hypogranular Neuts Cancelled 03/16/21 03:59 Hypersegmented Polys Cancelled 03/16/21 03:59 Smudge Cells Cancelled 03/16/21 03:59 Toxic Granulation Cancelled 03/16/21 03:59 Toxic Vacuolation Cancelled 03/16/21 03:59 Dohle Bodies Cancelled 03/16/21 03:59 Pelger-Huet Anomaly Cancelled 03/16/21 03:59 Lana Rods Cancelled 03/16/21 03:59 Platelet Estimate Cancelled 03/16/21 03:59 Clumped Platelets Cancelled 03/16/21 03:59 Plt Clumps, EDTA Cancelled 03/16/21 03:59 Large Platelets Cancelled 03/16/21 03:59 Giant Platelets Cancelled 03/16/21 03:59 Platelet Satelliting Cancelled 03/16/21 03:59 Plt Morphology Comment Cancelled 03/16/21 03:59 RBC Morphology Cancelled 03/16/21 03:59 Dimorphic RBCs Cancelled 03/16/21 03:59 Polychromasia Cancelled 03/16/21 03:59 Hypochromasia Cancelled 03/16/21 03:59 Poikilocytosis Cancelled 03/16/21 03:59 Basophilic Stippling Cancelled 03/16/21 03:59 Anisocytosis Cancelled 03/16/21 03:59 Microcytosis Cancelled 03/16/21 03:59 Macrocytosis Cancelled 03/16/21 03:59 Spherocytes Cancelled 03/16/21 03:59 Pappenheimer Bodies Cancelled 03/16/21 03:59 Sickle Cells Cancelled 03/16/21 03:59 Target Cells Cancelled 03/16/21 03:59 Tear Drop Cells Cancelled 03/16/21 03:59 Ovalocytes Cancelled 03/16/21 03:59 Stomatocytes Cancelled 03/16/21 03:59 Helmet Cells Cancelled 03/16/21 03:59 Alfonso-[place] Bodies Cancelled 03/16/21 03:59 Carpenter Rings Cancelled 03/16/21 03:59 Osman Cells Cancelled 03/16/21 03:59 Bite Cells Cancelled 03/16/21 03:59 Crenated Cell Cancelled 03/16/21 03:59 Elliptocytes Cancelled 03/16/21 03:59 Acanthocytes (Spur) Cancelled 03/16/21 03:59 Rouleaux Cancelled 03/16/21 03:59 Hemoglobin C Crystals Cancelled 03/16/21 03:59 Schistocytes Cancelled 03/16/21 03:59 Malaria parasites Cancelled 03/16/21 03:59 Shahzad Bodies Cancelled 03/16/21 03:59 Hem Pathologist Commnt Cancelled 03/16/21 03:59 Sodium 136 mmol/L (137-145) L 03/17/21 03:24 Potassium 3.0 mmol/L (3.6-5.0) L 03/17/21 03:24 Chloride 97.7 mmol/L (98-107) L 03/17/21 03:24 Carbon Dioxide 24 mmol/L (22-30) 03/17/21 03:24 Anion Gap 17 mmol/L 03/17/21 03:24 BUN 10 mg/dL (9-20) 03/17/21 03:24 Creatinine 0.5 mg/dL (0.8-1.3) L 03/17/21 03:24 Estimated GFR > 60 ml/min 03/17/21 03:24 BUN/Creatinine Ratio 20 % 03/17/21 03:24 Glucose 81 mg/dL (75-100) 03/17/21 03:24 Osmolality 301 Mosm/kg 03/15/21 Unknown Uric Acid 4.5 mg/dL (3.5-7.6) 03/15/21 Unknown Calcium 8.4 mg/dL (8.4-10.2) 03/17/21 03:24 Magnesium 1.30 mg/dL (1.7-2.3) L 03/17/21 03:24 Free T4 1.32 ng/dL (0.76-1.46) 03/15/21 Unknown Urine Color Yellow (Yellow) 03/15/21 09:09 Urine Turbidity Clear (Clear) 03/15/21 09:09 Urine pH 6.0 (5.0-7.0) 03/15/21 09:09 Ur Specific [place] 1.003 (1.003-1.030) 03/15/21 09:09 Urine Protein <15 mg/dl mg/dL (Negative) 03/15/21 09:09 Urine Glucose (UA) Neg mg/dL (Negative) 03/15/21 09:09 Urine Ketones Neg mg/dL (Negative) 03/15/21 09:09 Urine Blood Sm (Negative) 03/15/21 09:09 Urine Nitrite Neg (Negative) 03/15/21 09:09 Urine Bilirubin Neg (Negative) 03/15/21 09:09 Urine Urobilinogen 2.0 mg/dL (<2.0) 03/15/21 09:09 Ur Leukocyte Esterase Neg (Negative) 03/15/21 09:09 Urine WBC (Auto) 2.0 /HPF (0.0-6.0) 03/15/21 09:09 Urine RBC (Auto) 2.0 /HPF (0.0-6.0) 03/15/21 09:09 Urine Bacteria (Auto) 1+ /HPF (Negative) 03/15/21 09:09 Urine Sodium 11 mmol/L 03/15/21 12:51 Salicylates < 0.3 mg/dL (2.8-20.0) L 03/14/21 22:43 Urine Opiates Screen Negative 03/15/21 09:09 Urine Methadone Screen Negative 03/15/21 09:09 Acetaminophen 5.0 ug/mL (10.0-30.0) L 03/14/21 22:43 Ur Barbiturates Screen Negative 03/15/21 09:09 Phenytoin 6.9 ug/mL (10.0-20.0) L 03/17/21 10:31 Ur Phencyclidine Scrn Negative 03/15/21 09:09 Ur Amphetamines Screen Negative 03/15/21 09:09 U Benzodiazepines Scrn Negative 03/15/21 09:09 Urine Cocaine Screen Negative 03/15/21 09:09 U Marijuana (THC) Screen Negative 03/15/21 09:09 Drugs of Abuse Note Disclamer 03/15/21 09:09 Plasma/Serum Alcohol 0.19 % (0-0.07) H 03/14/21 22:43 Coronavirus (PCR) Positive (Negative) A 03/15/21 09:09 Active Medications - Current Medications Current Medications: Generic Name Dose Route Start Last Admin Trade Name Freq PRN Reason Stop Dose Admin Acetaminophen 650 mg 03/15/21 00:46 Acetaminophen 325 Mg Tab PO Q4H PRN Pain MILD(1-3)/Fever >100.5/CAAL Aspirin 81 mg 03/15/21 10:00 03/17/21 11:37 Aspirin Ec 81 Mg Tab PO 81 mg QDAY DG Administration Carvedilol 6.25 mg 03/15/21 08:00 03/17/21 11:37 Carvedilol 6.25 Mg Tab PO 6.25 mg BID@0800,1700 DG Administration Hydroxyzine HCl 25 mg 03/15/21 12:08 Hydroxyzine Hcl 25 Mg Tab PO Q6HR PRN Anxiety Potassium Chloride/Sodium Chloride 20 meq in 1,000 mls @ 100 mls/hr 03/16/21 11:00 Ns/Kcl 20meq IV DIRECT DG Lorazepam 2 mg 03/15/21 00:46 03/16/21 07:57 Lorazepam 2 Mg/Ml Vial IV 2 mg Q1H PRN Administration CIWA-Ar 8-15 Lorazepam 4 mg 03/15/21 00:46 Lorazepam 2 Mg/Ml Vial IV Q1H PRN CIWA-Ar 16-25 Lorazepam 4 mg 03/15/21 00:46 Lorazepam 2 Mg/Ml Vial IV Q15MIN PRN CIWA-Ar >25 Losartan Potassium 25 mg 03/15/21 10:00 03/17/21 11:37 Losartan 25 Mg Tab PO 25 mg QDAY DG Administration Magnesium Hydroxide 30 ml 03/15/21 00:46 Magnesium Hydroxide (Mom) Oral Liqd Udc PO Q4H PRN Constipation Magnesium Oxide 200 mg 03/15/21 10:00 03/17/21 11:37 Magnesium Oxide 400 Mg Tab PO 200 mg DAILY DG Administration Ondansetron HCl 4 mg 03/15/21 00:46 Ondansetron 4 Mg/2 Ml Inj IV Q8H PRN Nausea And Vomiting Phenytoin 300 mg 03/17/21 10:00 03/17/21 11:37 Phenytoin 100 Mg Capsule.Er PO 300 mg DAILY DG Administration Sodium Chloride 10 ml 03/15/21 10:00 03/17/21 11:37 Sodium Chloride 0.9% 10 Ml Flush Syringe IV 10 ml BID DG Administration Sodium Chloride 10 ml 03/15/21 00:46 Sodium Chloride 0.9% 10 Ml Flush Syringe IV PRN PRN LINE FLUSH Thiamine HCl 100 mg 03/16/21 10:00 03/17/21 11:37 Thiamine 100 Mg Tab PO 100 mg QDAY DG Administration
[2021-03-18] MEDS: MORPHINE 2 MG/1 ML INJ IV PRN ×2 (00:06→06:55)
[2021-03-18 06:47] LABS: Alanine Aminotransferase 64 units/L (7-56); Blood Urea Nitrogen 13 mg/dL (9-20); Hemolysis Index 9
[2021-03-18 06:56] LABS: BUN/Creatinine Ratio 19
[2021-03-18] MEDS ORDERED: CALCIUM GLUCONATE 1,000 MG in SODIUM CHLORIDE 0.9% 100 ML IV ONE (08:11)
[2021-03-18] MEDS ORDERED: POTASSIUM CHLORIDE ER 20 MEQ TAB PO NR (08:30)
[2021-03-18] MEDS ORDERED: MAGNESIUM SULFATE 1 GM in SODIUM CHLORIDE 0.9% 50 ML IV ONE (09:00)
--- NOTE | 2021-03-18 10:07 | Progress Note ---
Subjective Date of service: 03/18/21 Principal diagnosis: hyponatremia, seizure,alcoholism,gout Interval history: Impression/Plan: Hyponatremia: Improving in the setting of hypokalemia add NS with KCL today Urine specific gravity was only 1.003, Will check urine sodium, osmolality, uric acid, #hypomagnesemia add mag sulfate and replete potassium rec 400mg bid mag oxide and 2 gram mag sulfate daily if mag less than 1.9 #Mild hypocalcemia underlying vitamin D deficiency. patient has been on Dilantin, check vitamin D level Empirically can replace with 5000 units daily for now #Suicidal ideations, seizure disorder, being followed by psychiatry Source of information: From the current chart will follow peripherally SUbjective: labs and chart reviewed events noted Physical examination Vitals: Reviewed General: No acute distress HEENT: Oral mucosa moist no pallor or icterus Neck: Supple without any JVD thyromegaly or nodular mass Chest: Clear to auscultation Heart: Regular rate and rhythm S1-S2 heard no S3-S4 Abdomen: Soft nontender, bowel sounds present no renal bruit no suprapubic masses no CVA tenderness noted Extremity: Minimal edema dry skin no peripheral cyanosis Endocrine: Thyroid not enlarged Psychiatric: No agitation and aggression noted Musculoskeletal: No joint effusion noted Objective - Vital Signs Vital signs: Vital Signs - 12hr 03/18/21 03/18/21 03/18/21 00:45 01:00 05:18 Temperature 98.4 F 97.5 F L Pulse Rate 89 88 Respiratory 18 18 Rate Blood Pressure 149/93 154/84 O2 Sat by Pulse 93 93 96 Oximetry - Lab 03/16/21 03:59 03/18/21 04:50 Most recent lab results Calcium 8.0 mg/dL (8.4-10.2) L 03/18/21 04:50 Magnesium 1.30 mg/dL (1.7-2.3) L 03/18/21 04:50 Urine Sodium 11 mmol/L 03/15/21 12:51 Medications & Allergies - Medications Allergies/Adverse Reactions: Allergies olanzapine [From Zyprexa] Allergy (Verified 03/12/21 19:20) Nausea Home Medications: Home Medications Medication Instructions Recorded Confirmed Last Taken Type Aspirin EC [Halfprin EC] 81 mg PO QDAY #30 tablet 12/18/20 03/18/21 Unknown Rx Furosemide [Lasix TAB] 20 mg PO QDAY #30 tablet 12/18/20 03/18/21 Unknown Rx Losartan [Cozaar] 25 mg PO QDAY #30 tablet 12/18/20 03/18/21 Unknown Rx Spironolactone [Aldactone] 25 mg PO QDAY #30 tablet 12/18/20 03/18/21 Unknown Rx carvediloL [Coreg] 6.25 mg PO BID #60 tablet 12/18/20 03/18/21 Unknown Rx Folic Acid [Folvite] 1 mg PO QDAY #30 tablet 02/13/21 03/18/21 Unknown Rx Magnesium 200 mg PO DAILY #7 tablet 02/13/21 03/18/21 Unknown Rx Multivitamin Tab [Multiple Vitamin 1 each PO DAILY #30 tablet 02/13/21 03/18/21 Unknown Rx TAB (Theragran)] Thiamine [Vitamin B-1] 100 mg PO QDAY #30 tablet 02/13/21 03/18/21 Unknown Rx Phenytoin [Dilantin] 100 mg PO Q8HR #90 capsule 03/10/21 03/18/21 Unknown Rx hydrOXYzine HCL [Atarax] 25 mg PO Q6HR PRN #10 tablet 03/12/21 03/18/21 Unknown Rx Quetiapine Fumarate [SEROquel] 50 mg PO QHS 30 Days #30 tab 03/17/21 Unknown Rx hydrOXYzine PAMOATE [Vistaril] 25 mg PO Q6HR PRN 30 Days #90 03/17/21 Unknown Rx capsule Active Medications: Generic Name Dose Route Start Last Admin Trade Name Freq PRN Reason Stop Dose Admin Acetaminophen 650 mg 03/15/21 00:46 Acetaminophen 325 Mg Tab PO Q4H PRN Pain MILD(1-3)/Fever >100.5/CAAL Aspirin 81 mg 03/15/21 10:00 03/17/21 11:37 Aspirin Ec 81 Mg Tab PO 81 mg QDAY [facility] Administration Calcium Carbonate/Glycine 1,250 mg 03/18/21 10:00 Calcium Carbonate 1250 Mg Tab PO BID DG Carvedilol 6.25 mg 03/15/21 08:00 03/17/21 11:37 Carvedilol 6.25 Mg Tab PO 6.25 mg BID@0800,1700 [facility] Administration Hydroxyzine HCl 25 mg 03/15/21 12:08 Hydroxyzine Hcl 25 Mg Tab PO Q6HR PRN Anxiety Potassium Chloride/Sodium Chloride 20 meq in 1,000 mls @ 100 mls/hr 03/16/21 11:00 Ns/Kcl 20meq IV DIRECT DG Lorazepam 2 mg 03/15/21 00:46 03/16/21 07:57 Lorazepam 2 Mg/Ml Vial IV 2 mg Q1H PRN Administration CIWA-Ar 8-15 Lorazepam 4 mg 03/15/21 00:46 Lorazepam 2 Mg/Ml Vial IV Q1H PRN CIWA-Ar 16-25 Lorazepam 4 mg 03/15/21 00:46 Lorazepam 2 Mg/Ml Vial IV Q15MIN PRN CIWA-Ar >25 Losartan Potassium 25 mg 03/15/21 10:00 03/17/21 11:37 Losartan 25 Mg Tab PO 25 mg QDAY DG Administration Magnesium Hydroxide 30 ml 03/15/21 00:46 Magnesium Hydroxide (Mom) Oral Liqd Udc PO Q4H PRN Constipation Magnesium Oxide 200 mg 03/15/21 10:00 03/17/21 11:37 Magnesium Oxide 400 Mg Tab PO 200 mg DAILY DG Administration Morphine Sulfate 2 mg 03/17/21 23:55 03/18/21 06:55 Morphine 2 Mg/1 Ml Inj IV 2 mg Q6H PRN Administration Pain , Severe (7-10) Ondansetron HCl 4 mg 03/15/21 00:46 Ondansetron 4 Mg/2 Ml Inj IV Q8H PRN Nausea And Vomiting Phenytoin 300 mg 03/17/21 10:00 03/17/21 11:37 Phenytoin 100 Mg Capsule.Er PO 300 mg DAILY DG Administration Potassium Chloride 40 meq 03/18/21 08:30 Potassium Chloride Er 20 Meq Tab PO 03/18/21 12:00 ONCE@0830 NR Sodium Chloride 10 ml 03/15/21 10:00 03/17/21 23:57 Sodium Chloride 0.9% 10 Ml Flush Syringe IV Not Given BID DG Sodium Chloride 10 ml 03/15/21 00:46 Sodium Chloride 0.9% 10 Ml Flush Syringe IV PRN PRN LINE FLUSH Thiamine HCl 100 mg 03/16/21 10:00 03/17/21 11:37 Thiamine 100 Mg Tab PO 100 mg QDAY DG Administration
[2021-03-18] MEDS: ASPIRIN EC 81 MG TAB PO SCH (10:20)
[2021-03-18] MEDS: THIAMINE 100 MG TAB PO SCH (10:22)
[2021-03-18] MEDS: LOSARTAN 25 MG TAB PO SCH (10:22)
[2021-03-18] MEDS: MAGNESIUM OXIDE 400 MG TAB PO SCH (10:22)
[2021-03-18] MEDS: carvediloL 6.25 MG TAB PO SCH ×3 (10:24→18:02)
[2021-03-18] MEDS: PHENYTOIN 100 MG CAPSULE.ER PO SCH (10:29)
[2021-03-18] MEDS: CALCIUM CARBONATE 1250 MG TAB PO SCH ×2 (10:30→21:46)
--- NOTE | 2021-03-18 10:40 | Event Note ---
Date: 03/18/21 Please discontinue 1013. The patient is clear from psych point of view.
--- NOTE | 2021-03-18 11:44 | Progress Note ---
Assessment and Plan Assessment and Plan - Patient Problems # Seizures, as per pt. he is not taking medication can not afford it -placed on phenytoin and thiamine IV -patient placed on Dilantin. can take X3 tablet 100 mg once a day -Will place on seizure precautions.{ No driving, avoid alcohol,} -EEG is pending -ativan prn for seizure - MRI brain with gd is unremarkable -UDS is unremarkable -phenytoin level is #6.9 # COVID positive # Alcohol dependence -Patient will be placed on the CIZephyr protoco # Gout -always complains of pain and wants morphine and ativan !!! # Acute hyponatremia-- improved #136 today -Patient placed on IV fluid normal saline. -Will monitor chemistry. # Hypomagnesemia,Hypokalemia -Possibly secondary to his alcohol dependence. -Magnesium will be repleted. Will monitor magnesium level. # DVT prophylaxis -Patient placed on subcutaneous heparin. # Full code status -Patient is full code. will follow as needed EEG if possible suggest taking phenytoin 300 mg once a day{ 3 tablets at night before sleep} seizure precaution , no driving follow up with psychiatry and rheumatology need pt therapy No alcohol will sign off Subjective Date of service: 03/18/21 Principal diagnosis: hyponatremia, seizure,alcoholism,gout Interval history: no seizure reported he is asking for morphin and ativan to help with his gout !!! NA#136 today EEG not done magnesium#1.3 MRI w gd is unremarkable phenytoin level is #6.9 still complaining of feet pain and tenderness Objective - Vital Sign Vital Signs - 12hr 03/18/21 03/18/21 03/18/21 00:45 01:00 05:18 Temperature 98.4 F 97.5 F L Pulse Rate 89 88 Respiratory 18 18 Rate Blood Pressure 149/93 154/84 Blood Pressure [Left] O2 Sat by Pulse 93 93 96 Oximetry 03/18/21 03/18/21 03/18/21 10:21 10:22 10:24 Temperature Pulse Rate Respiratory Rate Blood Pressure 143/80 143/80 Blood Pressure 143/80 [Left] O2 Sat by Pulse Oximetry - General Apperance Constitutional: comfortable - EENT EENT: PERRL, mucous membranes moist - Respiratory Respiratory: chest non-tender, lungs clear, rhonchi - Cardiovascular Cardiovascular: regular rate, normal S1, normal S2 Extremities: no peripheral edema bilat, no clubbing, cyanosis - Gastrointestinal Gastrointestinal: normoactive bowel sounds - Integumentary Integumentary: normal - Neurologic Cranial nerve examination: PERRL, EOMI, intact Speech examination: intact Detailed motor examination: grossly full strength in - Laboratory Findings CBC and BMP: 03/16/21 03:59 03/18/21 04:50 Abnormal Lab Findings: Abnormal Labs 03/14/21 03/14/21 03/14/21 22:43 22:43 22:43 WBC Hgb 15.3 H MCV 107 H MCH 36 H RDW 21.0 H [place] % (Auto) 15.5 H Lymph # (Auto) 1.1 L Sodium 120 L Potassium 3.4 L Chloride 83.4 L BUN 8 L Creatinine 0.5 L Calcium 8.2 L Magnesium AST ALT Total Protein Albumin Salicylates < 0.3 L Acetaminophen Phenytoin 0.8 L Plasma/Serum Alcohol Coronavirus (PCR) 03/14/21 03/14/21 03/14/21 22:43 22:43 22:43 WBC Hgb MCV MCH RDW [place] % (Auto) Lymph # (Auto) Sodium Potassium Chloride BUN Creatinine Calcium Magnesium 1.20 L AST ALT Total Protein Albumin Salicylates Acetaminophen 5.0 L Phenytoin Plasma/Serum Alcohol 0.19 H Coronavirus (PCR) 03/15/21 03/15/21 03/16/21 09:09 10:38 03:59 WBC 3.7 L Hgb MCV 108 H MCH 36 H RDW 20.4 H [place] % (Auto) Lymph # (Auto) Sodium 125 L Potassium Chloride 87.6 L BUN 7 L Creatinine 0.6 L Calcium Magnesium 1.20 L AST ALT Total Protein Albumin Salicylates Acetaminophen Phenytoin Plasma/Serum Alcohol Coronavirus (PCR) Positive A 03/16/21 03/17/21 03/17/21 03:59 03:24 10:31 WBC Hgb MCV MCH RDW [place] % (Auto) Lymph # (Auto) Sodium 133 L D 136 L Potassium 3.2 L 3.0 L Chloride 95.2 L 97.7 L BUN Creatinine 0.7 L 0.5 L Calcium Magnesium 1.30 L AST ALT Total Protein Albumin Salicylates Acetaminophen Phenytoin 6.9 L Plasma/Serum Alcohol Coronavirus (PCR) 03/18/21 04:50 WBC Hgb MCV MCH RDW [place] % (Auto) Lymph # (Auto) Sodium 136 L Potassium 3.5 L Chloride BUN Creatinine 0.7 L Calcium 8.0 L Magnesium 1.30 L AST 92 H ALT 64 H Total Protein 5.6 L Albumin 3.0 L Salicylates Acetaminophen Phenytoin Plasma/Serum Alcohol Coronavirus (PCR)
--- NOTE | 2021-03-18 13:12 | Discharge Summary ---
Providers - Providers Date of Admission: 03/16/21 14:00 Date of discharge: 03/18/21 Attending physician: ANIBAL DUNLAP MD 03/15/21 00:46 Consult to Physician [CONS] Routine Comment: Consulting Provider: VAN LOUISE Physician Instructions: Reason For Exam: hyponatremia 03/15/21 01:07 Consult to Physician [CONS] Routine Comment: Consulting Provider: GEN ANGUIANO Physician Instructions: Reason For Exam: Seizures, h/o alcohol dependence 03/15/21 09:32 Consult to Physician [CONS] Routine Comment: Consulting Provider: DOLLY FISCHER Physician Instructions: Reason For Exam: SUICIDAL IDEATION 03/15/21 12:14 Consult to Case Management [CONS] Routine Services Needed at Discharge: Physical Therapy [facility] Additional Physician Instructions: The patient is homeless Primary care physician: DIRECTOR OF MEDICARE Hospitalization Reason for admission: Hyponatremia Condition: Stable Pertinent studies: Reviewed. Procedures: None. Hospital course: 65-year-old male with known history of anxiety/psychosis, seizure disorder and alcohol dependence presents to the emergency room today with complaint of seizure. Patient is well-known to this facility and has been here on multiple occasions. He states he has been having nausea and vomiting with occasional cough over the past 2 to 3 days. The patient presented with acute hyponatremia that improved with oral intake. Nephrology was consulted for further recommendations. The patient also has a history of seizure disorder; however, the patient has not been adherent to his medication. Neurology was consulted, and they recommended continuation of Dilantin 100 mg 3 times daily and discontinuation of Keppra. The patient was evaluated with a CT head noncontrast that was found to be negative. The patient was monitored for alcohol withdrawal, and CIWA protocol was initiated. Psychiatry was consulted for management of the patient's schizophrenia and anxiety. The patient was counseled about the importance of alcohol cessation and medication compliance. The patient expresses understanding. The patient was found to be positive for COVID-19 on 03/15/2021. The patient did not require administration of steroids and remdesivir as he has been saturating well on room air. The patient will require further isolation/quarantine until 03/19/2021. The patient was counseled about isolation, and he expresses understanding. The patient is medically clear for discharge. Disposition: 01 HOME / SELF CARE / HOMELESS Final Discharge Diagnosis (Prints w/discharge instructions): Acute hyponatremia, seizure disorder, alcohol dependence, schizophrenia, anxiety, hypokalemia, hypomagnesemia, homelessness Time spent for discharge: 45 min Core Measure Documentation - Palliative Care Palliative Care/ Comfort Measures: Not Applicable - Core Measures Any of the following diagnoses?: none Exam - Constitutional Vitals: Temp Pulse Resp BP Pulse Ox 97.5 F L 88 18 143/80 96 03/18/21 05:18 03/18/21 05:18 03/18/21 05:18 03/18/21 10:24 03/18/21 05:18 General appearance: Present: no acute distress, disheveled - EENT Eyes: Present: PERRL (Patient is legally blind), EOM intact ENT: hearing intact, clear oral mucosa, poor dentition - Neck Neck: Present: supple, normal ROM - Respiratory Respiratory effort: normal Respiratory: bilateral: CTA - Cardiovascular Rhythm: regular Heart Sounds: Present: S1 & S2 - Extremities Extremities: no ischemia, pulses intact, pulses symmetrical, No edema, normal temperature, normal color Peripheral Pulses: within normal limits - Abdominal General gastrointestinal: Present: soft, non-tender, non-distended, normal bowel sounds Male genitourinary: Present: deferred - Rectal Rectal Exam: deferred - Integumentary Integumentary: Present: clear, warm, dry - Musculoskeletal Musculoskeletal: strength equal bilaterally - Psychiatric Psychiatric: appropriate mood/affect - Neurologic Neurologic: CNII-XII intact - Allied Health Allied health notes reviewed: nursing Plan Activity: advance as tolerated Diet: regular Additional Instructions: 65-year-old male with known history of anxiety/psychosis, seizure disorder and alcohol dependence presents to the emergency room today with complaint of seizure. Patient is well-known to this facility and has been here on multiple occasions. He states he has been having nausea and vomiting with occasional cough over the past 2 to 3 days. The patient presented with acute hyponatremia that improved with oral intake. Nephrology was consulted for further recommendations. The patient also has a history of seizure disorder; however, the patient has not been adherent to his medication. Neurology was consulted, and they recommended continuation of Dilantin 100 mg 3 times daily and discontinuation of Keppra. The patient was evaluated with a CT head noncontrast that was found to be negative. The patient was monitored for alcohol withdrawal, and CIWA protocol was initiated. Psychiatry was consulted for management of the patient's schizophrenia and anxiety. The patient was counseled about the importance of alcohol cessation and medication compliance. The patient expresses understanding. The patient was found to be positive for COVID-19 on 03/15/2021. The patient did not require administration of steroids and remdesivir as he has been saturating well on room air. The patient will require further isolation/quarantine until 03/19/2021. The patient was counseled about isolation, and he expresses understanding. The patient is medically clear for discharge. Care Plan Goals: Patient is medically cleared for discharge. Assessment: 65-year-old male with known history of anxiety/psychosis, seizure disorder and alcohol dependence presents to the emergency room today with complaint of seizure. Patient is well-known to this facility and has been here on multiple occasions. He states he has been having nausea and vomiting with occasional cough over the past 2 to 3 days. The patient presented with acute hyponatremia that improved with oral intake. Nephrology was consulted for further recommendations. The patient also has a history of seizure disorder; however, the patient has not been adherent to his medication. Neurology was consulted, and they recommended continuation of Dilantin 100 mg 3 times daily and discontinuation of Keppra. The patient was evaluated with a CT head noncontrast that was found to be negative. The patient was monitored for alcohol withdrawal, and CIWA protocol was initiated. Psychiatry was consulted for management of the patient's schizophrenia and anxiety. The patient was counseled about the importance of alcohol cessation and medication compliance. The patient expresses understanding. The patient was found to be positive for COVID-19 on 03/15/2021. The patient did not require administration of steroids and remdesivir as he has been saturating well on room air. The patient will require further isolation/quarantine until 03/19/2021. The patient was counseled about isolation, and he expresses understanding. The patient is medically clear for discharge. Follow up with: PRIMARY CARE, [Primary Care Provider] - 7 Days Prescriptions: Quetiapine Fumarate [SEROquel] 50 mg PO QHS 30 Days #30 tab Calcium Carbonate [Oscal 1250MG TAB] 1,250 mg PO BID #60 tablet hydrOXYzine PAMOATE [Vistaril] 25 mg PO Q6HR PRN 30 Days #90 capsule PRN Reason: Anxiety
[2021-03-18] MEDS: ACETAMINOPHEN 325 MG TAB PO PRN (17:56)
[2021-03-18] MEDS: hydrOXYzine HCL 25 MG TAB PO PRN (18:04)
[2021-03-19 06:34] LABS: Blood Urea Nitrogen 10 mg/dL (9-20); Calcium 8.4 mg/dL (8.4-10.2); Hemolysis Index 42
[2021-03-19 06:45] LABS: BUN/Creatinine Ratio 17
--- NOTE | 2021-03-19 09:37 | Progress Note ---
Subjective Date of service: 03/19/21 Principal diagnosis: hyponatremia, seizure,alcoholism,gout Interval history: Impression/Plan: Hyponatremia: Improving in the setting of hypokalemia added NS with KCL Urine specific gravity was only 1.003, #COvid PNA #hypomagnesemia added mag sulfate and replete potassium rec 400mg bid mag oxide and 2 gram mag sulfate daily if mag less than 1.9 #Mild hypocalcemia underlying vitamin D deficiency. patient has been on Dilantin, check vitamin D level Empirically can replace with 5000 units daily for now #Suicidal ideations, seizure disorder, being followed by psychiatry Source of information: From the current chart will follow peripherally SUbjective: labs and chart reviewed events noted Physical examination Vitals: Reviewed General: No acute distress HEENT: Oral mucosa moist no pallor or icterus Neck: Supple without any JVD thyromegaly or nodular mass Chest: Clear to auscultation Heart: Regular rate and rhythm S1-S2 heard no S3-S4 Abdomen: Soft nontender, bowel sounds present no renal bruit no suprapubic masses no CVA tenderness noted Extremity: Minimal edema dry skin no peripheral cyanosis Endocrine: Thyroid not enlarged Psychiatric: No agitation and aggression noted Musculoskeletal: No joint effusion noted Objective - Vital Signs Vital signs: Vital Signs - 12hr 03/18/21 03/19/21 03/19/21 22:25 02:00 04:47 Temperature 98.2 F 97.9 F Pulse Rate 77 79 Respiratory 18 18 Rate Blood Pressure 134/84 141/87 O2 Sat by Pulse 96 96 94 Oximetry 03/19/21 08:49 Temperature Pulse Rate Respiratory Rate Blood Pressure O2 Sat by Pulse 95 Oximetry - Lab 03/16/21 03:59 03/19/21 05:14 Most recent lab results Calcium 8.4 mg/dL (8.4-10.2) 03/19/21 05:14 Magnesium 1.30 mg/dL (1.7-2.3) L 03/18/21 04:50 Urine Sodium 11 mmol/L 03/15/21 12:51 Medications & Allergies - Medications Allergies/Adverse Reactions: Allergies olanzapine [From Zyprexa] Allergy (Verified 03/12/21 19:20) Nausea Home Medications: Home Medications Medication Instructions Recorded Confirmed Last Taken Type Aspirin EC [Halfprin EC] 81 mg PO QDAY #30 tablet 12/18/20 03/18/21 Unknown Rx Losartan [Cozaar] 25 mg PO QDAY #30 tablet 12/18/20 03/18/21 Unknown Rx carvediloL [Coreg] 6.25 mg PO BID #60 tablet 12/18/20 03/18/21 Unknown Rx Folic Acid [Folvite] 1 mg PO QDAY #30 tablet 02/13/21 03/18/21 Unknown Rx Magnesium 200 mg PO DAILY #7 tablet 02/13/21 03/18/21 Unknown Rx Multivitamin Tab [Multiple Vitamin 1 each PO DAILY #30 tablet 02/13/21 03/18/21 Unknown Rx TAB (Theragran)] Thiamine [Vitamin B-1] 100 mg PO QDAY #30 tablet 02/13/21 03/18/21 Unknown Rx hydrOXYzine HCL [Atarax] 25 mg PO Q6HR PRN #10 tablet 03/12/21 03/18/21 Unknown Rx Quetiapine Fumarate [SEROquel] 50 mg PO QHS 30 Days #30 tab 03/17/21 Unknown Rx hydrOXYzine PAMOATE [Vistaril] 25 mg PO Q6HR PRN 30 Days #90 03/17/21 Unknown Rx capsule Calcium Carbonate [Oscal 1250MG 1,250 mg PO BID #60 tablet 03/18/21 Unknown Rx TAB] Phenytoin [Dilantin] 100 mg PO Q8HR #90 capsule 03/18/21 Unknown Rx Active Medications: Generic Name Dose Route Start Last Admin Trade Name Freq PRN Reason Stop Dose Admin Acetaminophen 650 mg 03/15/21 00:46 03/18/21 17:56 Acetaminophen 325 Mg Tab PO 650 mg Q4H PRN Administration Pain MILD(1-3)/Fever >100.5/CAAL Aspirin 81 mg 03/15/21 10:00 03/18/21 10:20 Aspirin Ec 81 Mg Tab PO 81 mg QDAY DG Administration Calcium Carbonate/Glycine 1,250 mg 03/18/21 10:00 03/18/21 21:46 Calcium Carbonate 1250 Mg Tab PO 1,250 mg BID DG Administration Carvedilol 6.25 mg 03/15/21 08:00 03/18/21 18:02 Carvedilol 6.25 Mg Tab PO 6.25 mg BID@0800,1700 DG Administration Hydroxyzine HCl 25 mg 03/15/21 12:08 03/18/21 18:04 Hydroxyzine Hcl 25 Mg Tab PO 25 mg Q6HR PRN Administration Anxiety Potassium Chloride/Sodium Chloride 20 meq in 1,000 mls @ 100 mls/hr 03/16/21 11:00 Ns/Kcl 20meq IV DIRECT DG Lorazepam 2 mg 03/15/21 00:46 03/16/21 07:57 Lorazepam 2 Mg/Ml Vial IV 2 mg Q1H PRN Administration CIWA-Ar 8-15 Lorazepam 4 mg 03/15/21 00:46 Lorazepam 2 Mg/Ml Vial IV Q1H PRN CIWA-Ar 16-25 Lorazepam 4 mg 03/15/21 00:46 Lorazepam 2 Mg/Ml Vial IV Q15MIN PRN CIWA-Ar >25 Losartan Potassium 25 mg 03/15/21 10:00 03/18/21 10:22 Losartan 25 Mg Tab PO 25 mg QDAY DG Administration Magnesium Hydroxide 30 ml 03/15/21 00:46 Magnesium Hydroxide (Mom) Oral Liqd Udc PO Q4H PRN Constipation Magnesium Oxide 200 mg 03/15/21 10:00 03/18/21 10:22 Magnesium Oxide 400 Mg Tab PO 200 mg DAILY DG Administration Morphine Sulfate 2 mg 03/17/21 23:55 03/18/21 06:55 Morphine 2 Mg/1 Ml Inj IV 2 mg Q6H PRN Administration Pain , Severe (7-10) Ondansetron HCl 4 mg 03/15/21 00:46 Ondansetron 4 Mg/2 Ml Inj IV Q8H PRN Nausea And Vomiting Phenytoin 300 mg 03/17/21 10:00 03/18/21 10:29 Phenytoin 100 Mg Capsule.Er PO 300 mg DAILY DG Administration Sodium Chloride 10 ml 03/15/21 10:00 03/18/21 21:46 Sodium Chloride 0.9% 10 Ml Flush Syringe IV 10 ml BID DG Administration Sodium Chloride 10 ml 03/15/21 00:46 Sodium Chloride 0.9% 10 Ml Flush Syringe IV PRN PRN LINE FLUSH Thiamine HCl 100 mg 03/16/21 10:00 03/18/21 10:22 Thiamine 100 Mg Tab PO 100 mg QDAY DG Administration
[2021-03-19] MEDS: LOSARTAN 25 MG TAB PO SCH (09:43)
[2021-03-19] MEDS: ASPIRIN EC 81 MG TAB PO SCH (09:43)
[2021-03-19] MEDS: MAGNESIUM OXIDE 400 MG TAB PO SCH (09:44)
[2021-03-19] MEDS: ACETAMINOPHEN 325 MG TAB PO PRN ×2 (09:44→14:52)
[2021-03-19] MEDS: PHENYTOIN 100 MG CAPSULE.ER PO SCH (09:44)
[2021-03-19] MEDS: carvediloL 6.25 MG TAB PO SCH ×2 (09:45→18:30)
[2021-03-19] MEDS: CALCIUM CARBONATE 1250 MG TAB PO SCH (09:45)
[2021-03-19] MEDS: THIAMINE 100 MG TAB PO SCH (09:46)
[2021-03-19] MEDS: hydrOXYzine HCL 25 MG TAB PO PRN (14:52)
[2021-03-19 18:29] VITALS: BP 126/75
== END 2021-03-19 21:15 | disposition home or self-care (01) | DRG 100 ==
LOC: ED 19:49 → 4A 03-15 00:46 → OBSVTOIN 03-16 14:00 → 3A 03-17 19:40
PROVIDERS: ADMIT Internal Medicine Geriatric Medicine; ATTEND Student in an Organized Health Care Education/Training Program
DX: G40.909 Epilepsy, unspecified, not intractable, without status epilepticus (principal); U07.1 COVID-19; J12.82 Pneumonia due to coronavirus disease 2019; E87.1 Hypo-osmolality and hyponatremia; R45.851 Suicidal ideations; E87.6 Hypokalemia; E83.42 Hypomagnesemia; F41.9 Anxiety disorder, unspecified; J45.909 Unspecified asthma, uncomplicated; F20.9 Schizophrenia, unspecified; E83.51 Hypocalcemia; F10.20 Alcohol dependence, uncomplicated; Y90.9 Presence of alcohol in blood, level not specified; M10.9 Gout, unspecified; Z88.8 Allergy status to other drugs, medicaments and biological substances; Z79.82 Long term (current) use of aspirin; Z79.899 Other long term (current) drug therapy; H54.8 Legal blindness, as defined in USA
CPT/HCPCS: 36415; 70553; 71045; 80048; 80053; 80185; 80307; 80320; 81001; 82533; 83735; 83930; 84300; 84439; 84550; 85025; G0378; J3490; Q0162; Q0177; A9575; G0480; J2060; J2270; J3411; J3475; J7030; Q2009; U0003

== ENCOUNTER 2021-03-27 15:21 | Emergency (ER) | payer OTHER, SELFPAY ==
[2021-03-27] MEDS ORDERED: chlordiazePOXIDE 25 MG CAP PO PRN (15:46)
[2021-03-27] MEDS ORDERED: PHENYTOIN 1,000 MG in SODIUM CHLORIDE 0.9% 250ML 250 ML IV ONE ×2 (15:46→16:26)
[2021-03-27] MEDS ORDERED: THIAMINE 100 MG, FOLIC ACID 1 MG, MULTIPLE VITAMIN INJ, ADULT 10 ML in SODIUM CHLORIDE ... IV ONE (15:46)
[2021-03-27] MEDS ORDERED: diazePAM 10 MG/2 ML SYRINGE IV ONE ×2 (15:46→16:26)
[2021-03-27] MEDS ORDERED: LORazepam 2 MG/ML VIAL IV PRN ×3 (15:46)
--- NOTE | 2021-03-27 15:50 | Emergency Department Report ---
ED General Adult HPI - General Chief complaint: Seizure Stated complaint: SEIZURE PUI?: No Time Seen by Provider: 03/27/21 15:32 Source: patient, EMS (Verbal report received from emergency medical services. EMS documentation not available at time of chart dictation ), RN notes reviewed, old records reviewed (Discharge summary from earlier this month reviewed and appreciated) Mode of arrival: Stretcher Limitations: No Limitations - History of Present Illness Initial comments: The patient was evaluated in the emergency department for symptoms described in the history of present illness. He/she was evaluated in the context of the global COVID-19 pandemic, which necessitated consideration that the patient might be at risk for infection with the virus that causes COVID-19. Institutional protocols and algorithms that pertain to the evaluation of patients at risk for COVID-19 are in a state of rapid change based on infor mation released by regulatory bodies including the CDC and federal and state organizations. These policies and algorithms were followed during the patient's care in the emergency department. Please note that these policies, procedures and recommendations changed on a rapid basis. The patient is a 65-year-old gentleman, with a known history of anxiety, seizure disorder, alcohol dependence, recent diagnosis of COVID-19, who presents to the ER with EMS with a complaint of painless history of seizure. The patient denies physical pain. He is not homicidal or suicidal. He reports that he is anxious. He has not been taking his medications. He denies cough/different shortness of breath. He denies urinary symptoms. He denies extremity weakness and numbness. EMS reports that this patient is homeless, and they found him walking with a steady gait. Of note, this patient is visually impaired at baseline. -: Sudden Consistency: now resolved Improves with: none Worsens with: none - Related Data Previous Rx's Medication Instructions Recorded Last Taken Type Aspirin EC [Halfprin EC] 81 mg PO QDAY #30 tablet 12/18/20 Unknown Rx Losartan [Cozaar] 25 mg PO QDAY #30 tablet 12/18/20 Unknown Rx carvediloL [Coreg] 6.25 mg PO BID #60 tablet 12/18/20 Unknown Rx hydrOXYzine HCL [Atarax] 25 mg PO Q6HR PRN #10 tablet 03/12/21 Unknown Rx Quetiapine Fumarate [SEROquel] 50 mg PO QHS 30 Days #30 tab 03/17/21 Unknown Rx hydrOXYzine PAMOATE [Vistaril] 25 mg PO Q6HR PRN 30 Days #90 03/17/21 Unknown Rx capsule Calcium Carbonate [Oscal 1250MG 1,250 mg PO BID #60 tablet 03/18/21 Unknown Rx TAB] Folic Acid [Folvite] 1 mg PO QDAY #30 tablet 03/27/21 Unknown Rx Magnesium 200 mg PO DAILY #7 tablet 03/27/21 Unknown Rx Multivitamin Tab [Multiple Vitamin 1 each PO DAILY #30 tablet 03/27/21 Unknown Rx TAB (Theragran)] Phenytoin [Dilantin] 100 mg PO Q8HR #90 capsule 03/27/21 Unknown Rx Thiamine [Vitamin B-1] 100 mg PO QDAY #30 tablet 03/27/21 Unknown Rx Allergies Allergy/AdvReac Type Severity Reaction Status Date / Time olanzapine [From Zyprexa] Allergy Nausea Verified 03/12/21 19:20 ED Review of Systems ROS: Stated complaint: SEIZURE Other details as noted in HPI Constitutional: denies: fever Eyes: denies: eye discharge Respiratory: denies: wheezing Cardiovascular: denies: chest pain Gastrointestinal: denies: abdominal pain Genitourinary: denies: dysuria Musculoskeletal: myalgia Neurological: denies: headache Psychiatric: anxiety. denies: homicidal thoughts, suicidal thoughts ED Past Medical Hx - Past Medical History Hx Hypertension: Yes Hx Congestive Heart Failure: No Hx Diabetes: No Hx Seizures: Yes Hx Psychiatric Treatment: Yes (anxiety psychosis) Hx Asthma: Yes Hx COPD: No Additional medical history: Alcoholism. pancreatitis. legally blind - Surgical History Additional Surgical History: R knee surgery, left lung injury HIP SURGERY - Social History Smoking Status: Smoker, Current Status Unknown - Medications Home Medications: Home Medications Medication Instructions Recorded Confirmed Last Taken Type Aspirin EC [Halfprin EC] 81 mg PO QDAY #30 tablet 12/18/20 03/18/21 Unknown Rx Losartan [Cozaar] 25 mg PO QDAY #30 tablet 12/18/20 03/18/21 Unknown Rx carvediloL [Coreg] 6.25 mg PO BID #60 tablet 12/18/20 03/18/21 Unknown Rx hydrOXYzine HCL [Atarax] 25 mg PO Q6HR PRN #10 tablet 03/12/21 03/18/21 Unknown Rx Quetiapine Fumarate [SEROquel] 50 mg PO QHS 30 Days #30 tab 03/17/21 Unknown Rx hydrOXYzine PAMOATE [Vistaril] 25 mg PO Q6HR PRN 30 Days #90 03/17/21 Unknown Rx capsule Calcium Carbonate [Oscal 1250MG 1,250 mg PO BID #60 tablet 03/18/21 Unknown Rx TAB] Folic Acid [Folvite] 1 mg PO QDAY #30 tablet 03/27/21 Unknown Rx Magnesium 200 mg PO DAILY #7 tablet 03/27/21 Unknown Rx Multivitamin Tab [Multiple Vitamin 1 each PO DAILY #30 tablet 03/27/21 Unknown Rx TAB (Theragran)] Phenytoin [Dilantin] 100 mg PO Q8HR #90 capsule 03/27/21 Unknown Rx Thiamine [Vitamin B-1] 100 mg PO QDAY #30 tablet 03/27/21 Unknown Rx ED Physical Exam - General Limitations: No Limitations General appearance: alert, in no apparent distress - Head Head exam: Present: atraumatic, normocephalic - Eye Eye exam: Present: EOMI. Absent: normal appearance (Opacified cloudy corneas noted bilaterally), nystagmus - ENT ENT exam: Present: normal exam, normal orophraynx, mucous membranes moist, normal external ear exam - Neck Neck exam: Present: normal inspection, full ROM. Absent: tenderness, meningismus - Respiratory Respiratory exam: Present: normal lung sounds bilaterally. Absent: respiratory distress, wheezes, rales, rhonchi, stridor, decreased breath sounds - Cardiovascular Cardiovascular Exam: Present: regular rate, normal rhythm, normal heart sounds. Absent: bradycardia, tachycardia, irregular rhythm, systolic murmur, diastolic murmur, rubs, gallop - GI/Abdominal GI/Abdominal exam: Present: soft. Absent: distended, tenderness, guarding, rebound, rigid, pulsatile mass - Rectal Rectal exam: Present: normal inspection (Chaperoned by nurse Shalini Davalos) - exam: Present: normal inspection (Chaperoned by nurse Shalini Davalos) External exam: Present: normal external exam (Chaperoned by nurse Shalini Davalos) - Extremities Exam Extremities exam: Present: full ROM, pedal edema, other (2+ pulses noted in the bilateral upper and lower extremities. There is no palpable cord. negative Homans sign. Muscular compartments are soft. The pelvis is stable.). Absent: normal inspection (Chronic venous stasis changes noted in the bilateral lower extremities), calf tenderness - Back Exam Back exam: Present: normal inspection, full ROM. Absent: tenderness, CVA tenderness (R), CVA tenderness (L), paraspinal tenderness, vertebral tenderness - Neurological Exam Neurological exam: Present: alert (Minimal tongue fasciculations noted), oriented X3, other (No facial droop. Tongue midline. Extraocular movements intact bilaterally. Facial sensation intact to light touch in V1, V2, V3 distribution bilaterally. 5 and a 5 strength in 4 extremities. Sensation intact to light touch in 4 extremities.). Absent: motor sensory deficit - Psychiatric Psychiatric exam: Present: anxious. Absent: homicidal ideation, suicidal ideation - Skin Skin exam: Present: warm, dry, intact, normal color. Absent: rash ED Course Vital Signs 03/27/21 03/27/21 03/27/21 15:23 16:00 19:25 Temperature 98.2 F 98.6 F Pulse Rate 90 80 Respiratory 16 18 Rate Blood Pressure 148/88 125/86 [Right] O2 Sat by Pulse 99 100 100 Oximetry 03/28/21 00:00 Temperature Pulse Rate 80 Respiratory 18 Rate Blood Pressure 124/82 [Right] O2 Sat by Pulse 100 Oximetry - Reevaluation(s) Reevaluation #1: 03/27/21 16:40 Differential diagnosis, including but not limited to: Seizure, noncompliance, alcohol withdrawal, electrolyte derangement, dehydration, closed head injury Assessment and plan: 65-year-old gentleman, who was afebrile, with reassuring vital signs, minimal tongue fasciculations, who is awake, alert, oriented to name, place and location, who is not homicidal or suicidal, who does not meet criteria for [address] or [address] hold[address] Place patient on beauty culturist, obtain appropriate laboratory studies and EKG, as well as noncontrast CT scan of the brain. Start patient on appropriate medications, including Valium, phenytoin, and alcohol withdrawal protocol. Reassess after initial data points 03/27/21 19:56 CT scan of the brain and cervical spine negative for acute traumatic findings. Laboratory studies remarkable for mild hyperglycemia, mild hypomagnesemia, elevated blood alcohol level. Otherwise essentially at baseline. Patient will be observed in this ER pending clinical sobriety, and pending euglycemia. He is also found to have a subtherapeutic phenytoin level, he is loaded with phenytoin, and no further seizures have been noted. 03/27/21 20:06 Repeat Accu-Chek is 78. I have personally fed this patient a burger, as well as given him cranberry juice. Patient is clinically sober at this time. He may be discharged. 03/29/21 19:41 ED Medical Decision Making - Lab Data Result diagrams: 03/27/21 16:04 03/27/21 16:04 Vital Signs 03/27/21 03/27/21 15:23 16:00 Temperature 98.2 F Pulse Rate 90 Respiratory 16 Rate Blood Pressure 148/88 [Right] O2 Sat by Pulse 99 100 Oximetry Lab Results 03/27/21 03/27/21 03/27/21 Range/Units 16:04 16:04 16:04 WBC 5.2 (4.5-11.0) K/mm3 RBC 4.23 (3.65-5.03) M/mm3 Hgb 15.3 H (11.8-15.2) gm/dl Hct 45.1 (35.5-45.6) % MCV 107 H (84-94) fl MCH 36 H (28-32) pg MCHC 34 (32-34) % RDW 19.0 H (13.2-15.2) % Plt Count 300 (140-440) K/mm3 Lymph % (Auto) 20.5 (13.4-35.0) % [place] % (Auto) 10.1 H (0.0-7.3) % Eos % (Auto) 1.5 (0.0-4.3) % Baso % (Auto) Assistant Property Manager Lymph # (Auto) 1.1 L (1.2-5.4) K/mm3 [place] # (Auto) 0.5 (0.0-0.8) K/mm3 Eos # (Auto) 0.1 (0.0-0.4) K/mm3 Baso # (Auto) 0.1 (0.0-0.1) K/mm3 Seg Neutrophils % 66.5 (40.0-70.0) % Seg Neutrophils # 3.5 (1.8-7.7) K/mm3 Sodium 140 (137-145) mmol/L Potassium 3.5 L (3.6-5.0) mmol/L Chloride 101.7 (98-107) mmol/L Carbon Dioxide 23 (22-30) mmol/L Anion Gap 19 mmol/L BUN 6 L (9-20) mg/dL Creatinine 0.5 L (0.8-1.3) mg/dL Estimated GFR > 60 ml/min BUN/Creatinine Ratio 12 % Glucose 68 L (75-100) mg/dL Calcium 7.8 L (8.4-10.2) mg/dL Magnesium (1.7-2.3) mg/dL Phenytoin 0.9 L (10.0-20.0) ug/mL Plasma/Serum Alcohol (0-0.07) % 03/27/21 03/27/21 Range/Units 16:04 16:04 WBC (4.5-11.0) K/mm3 RBC (3.65-5.03) M/mm3 Hgb (11.8-15.2) gm/dl Hct (35.5-45.6) % MCV (84-94) fl MCH (28-32) pg MCHC (32-34) % RDW (13.2-15.2) % Plt Count (140-440) K/mm3 Lymph % (Auto) (13.4-35.0) % [place] % (Auto) (0.0-7.3) % Eos % (Auto) (0.0-4.3) % Baso % (Auto) Lymph # (Auto) (1.2-5.4) K/mm3 [place] # (Auto) (0.0-0.8) K/mm3 Eos # (Auto) (0.0-0.4) K/mm3 Baso # (Auto) (0.0-0.1) K/mm3 Seg Neutrophils % (40.0-70.0) % Seg Neutrophils # (1.8-7.7) K/mm3 Sodium (137-145) mmol/L Potassium (3.6-5.0) mmol/L Chloride (98-107) mmol/L Carbon Dioxide (22-30) mmol/L Anion Gap mmol/L BUN (9-20) mg/dL Creatinine (0.8-1.3) mg/dL Estimated GFR ml/min BUN/Creatinine Ratio % Glucose (75-100) mg/dL Calcium (8.4-10.2) mg/dL Magnesium 1.60 L (1.7-2.3) mg/dL Phenytoin (10.0-20.0) ug/mL Plasma/Serum Alcohol 0.21 H (0-0.07) % - EKG Data -: EKG Interpreted by [place] EKG shows normal: sinus rhythm - EKG Data 03/27/21 17:47 The EKG today is interpreted at 17: 41 The EKG today is compared to prior EKG from December 2020 Sinus rhythm, rate 77 bpm. Normal axis, QTC 4 7 2 ms. Motion artifact. PVC. Poor R wave progression. Abnormal EKG. Not a STEMI. This is not atrial flutter - Radiology Data Radiology results: report reviewed, image reviewed CT head/brain wo con INDICATION: Seizure. TECHNIQUE: Routine CT head. All CT scans at this location are performed using CT dose reduction for ALARA by means of automated exposure control. COMPARISON: 03/27/2021 FINDINGS: Intracranial: Contreras-white matter differentiation is maintained. No intracranial hemorrhage. No extra axial collection. No hydrocephalus. No herniation. Sinuses: Moderate right maxillary and mild left maxillary sinus mucosal thickening.. Orbits: Globes are intact. Calvarium: Remote right lamina papyracea fracture. No acute fracture. IMPRESSION: 1. No acute intracranial abnormality. Signer Name: Alexis Anderson MD Signed: 03/27/2021 4:08 PM Workstation Name: [id number] CT cervical spine wo con INDICATION / CLINICAL INFORMATION: 65 years Male; E.T.O.H. abuse, seizure, E.T.O.H. intoxication today. TECHNIQUE: Axial CT im ages of the cervical spine were obtained. Sagittal and coronal reformatted images were produced. All CT scans at this location are performed using CT dose reduction for ALARA by means of automated exposure control. COMPARISON: The study is compared to the most recent of numerous previous CT cervical spine of 02/13/2022. FINDINGS: POST-SURGICAL CHANGES: None. ALIGNMENT: There is no significant developing spondylolisthesis of the cervical spine. VERTEBRAE: There is continued significant disc space narrowing at C5-6 and C6-7 with endplate changes at. Anterior osteophytic formation is also noted at C3-4 and C4-5. There has been no significant interval change from the previous CT. Additionally, there is no clear CT evidence of acute fracture. INTRAVERTEBRAL DISCS: The right uncovertebral and facet joint hypertrophy at C3-4 results in moderate to marked right foraminal narrowing. There is mild to moderate right foraminal narrowing at C4-5. The spondylosis at C5-6 encroaches on the right lateral recess with marked right foraminal narrowing at. There is moderate right foraminal narrowing at C6-7. PARASPINAL SOFT TISSUES: No prevertebral soft tissue fluid collections are identified. ADDITIONAL FINDINGS: None. IMPRESSION: 1. There is no CT evidence of acute fracture involving the cervical spine. 2. There are continued multilevel degenerative the changes as detailed above. Signer Name: Adalberto Winkler MD Signed: 03/27/2021 6:45 PM Workstation Name: [id number] Critical care attestation.: If time is entered above; I have spent that time in minutes in the direct care of this critically ill patient, excluding procedure time. ED Disposition Clinical Impression: ETOH abuse, Hypomagnesemia, Closed head injury, Frequent falls, Alcohol dependence, Seizures, Dilantin level too low, Chronic alcohol use Disposition: 01 HOME / SELF CARE / HOMELESS Is pt being admited?: No Does the pt Need Aspirin: No Condition: Good Additional Instructions: Recommend that patient discontinue/minimize consumption of alcohol. Take the prescribed medications as needed and directed. Consume foods that are high in potassium and magnesium, such as avocado, banana, or potato. Make certain to take your seizure medication. Noncompliance with Dilantin/phenytoin/seizure medication may result in breakthrough seizure, which may lead to , disability, paralysis, and loss of quality of life. Continue current outpatient medications otherwise. Do not drive or operate motor vehicles for the next 6 months. Follow-up with a primary care doctor within the next 5 to 7 days for repeat checkup and evaluation. Please return to the emergency room right away with new pain, worsened pain, migration of pain, projectile vomiting, change in mental status, confusion, inability tolerate liquid feeds, new, worsened or different symptoms not present on the initial emergency room evaluation Prescriptions: Phenytoin [Dilantin] 100 mg PO Q8HR #90 capsule Folic Acid [Folvite] 1 mg PO QDAY #30 tablet Magnesium 200 mg PO DAILY #7 tablet Multivitamin Tab [Multiple Vitamin TAB (Theragran)] 1 each PO DAILY #30 tablet Thiamine [Vitamin B-1] 100 mg PO QDAY #30 tablet Referrals: [facility] [Provider Group] - 3-5 Days [facility] [Outside] - 3-5 Days [facility] [Outside] - 3-5 Days
[2021-03-27] MEDS ORDERED: PHENYTOIN 100 MG CAPSULE.ER PO ONE (16:06)
[2021-03-27] MEDS ORDERED: LORazepam 2 MG/ML VIAL IM STA (16:06)
[2021-03-27] MEDS ORDERED: diazePAM 10 MG/2 ML SYRINGE IM ONE (16:10)
[2021-03-27 16:33] LABS: Basophils # (Auto) 0.1 K/mm3 (0.0-0.1); Eosinophils # (Auto) 0.1 K/mm3 (0.0-0.4); Eosinophils % (Auto) 1.5 % (0.0-4.3); Hematocrit 45.1 % (35.5-45.6); Hemoglobin 15.3 gm/dl (11.8-15.2); Lymphocytes # (Auto) 1.1 K/mm3 (1.2-5.4); Lymphocytes % (Auto) 20.5 % (13.4-35.0); Mean Corpuscular HGB Conc 34 % (32-34); Mean Corpuscular Volume 107 fl (84-94); Monocytes # (Auto) 0.5 K/mm3 (0.0-0.8); Monocytes % (Auto) 10.1 % (0.0-7.3); Platelet Count 300 K/mm3 (140-440); Red Blood Count 4.23 M/mm3 (3.65-5.03)
[2021-03-27 16:57] LABS: Blood Urea Nitrogen 6 mg/dL (9-20); Calcium 7.8 mg/dL (8.4-10.2); Hemolysis Index 8
[2021-03-27 16:58] LABS: BUN/Creatinine Ratio 12
[2021-03-27] MEDS ORDERED: DEXTROSE 50% IN WATER (25GM) 50 ML VIAL IV ONE (16:59)
[2021-03-27] MEDS ORDERED: MAGNESIUM OXIDE 400 MG TAB PO STA (16:59)
[2021-03-27] MEDS ORDERED: DEXTROSE 50% IN WATER (25GM) 50 ML VIAL IV PRN (16:59)
[2021-03-27] MEDS ORDERED: DEXTROSE 10% *Hypoglycemia IV PRN (17:04)
--- NOTE | 2021-03-27 17:13 | Cat Scan Report ---
CT head/brain wo con INDICATION: Seizure. TECHNIQUE: Routine CT head. All CT scans at this location are performed using CT dose reduction for A LOPEZ by means of automated exposure control. COMPARISON: 03/27/2021 FINDINGS: Intracranial: Contreras-white matter differentiation is maintained. No intracranial hemorrhage. No extra a xial collection. No hydrocephalus. No herniation. Sinuses: Moderate right maxillary and mild left maxillary sinus mucosal thickening.. Orbits: Globes are intact. Calvarium: Remote right lamina papyracea fracture. No acute fracture. IMPRESSION: 1. No acute intracranial abnormality. Signer Name: Alexis Anderson MD Signed: 03/27/2021 5:08 PM Workstation Name: [id number]
--- NOTE | 2021-03-27 19:49 | Cat Scan Report ---
CT cervical spine wo con INDICATION / CLINICAL INFORMATION: 65 years Male; E.T.O.H. abuse, seizure, E.T.O.H. intoxication today. TECHNIQUE: Axial CT images of the cervical spine were obtained. Sagittal and coronal reformatted images were pr oduced. All CT scans at this location are performed using CT dose reduction for ALARA by means of aut omated exposure control. COMPARISON: The study is compared to the most recent of numerous previous CT cervical spine of 02/13/2022. FINDINGS: POST-SURGICAL CHANGES: None. ALIGNMENT: There is no significant developing spondylolisthesis of the cervical spine. VERTEBRAE: There is continued significant disc space narrowing at C5-6 and C6-7 with endplate changes at. Anterior osteophytic formation is also noted at C3-4 and C4-5. There has been no significant int erval change from the previous CT. Additionally, there is no clear CT evidence of acute fracture. INTRAVERTEBRAL DISCS: The right uncovertebral and facet joint hypertrophy at C3-4 results in moderate to marked right foraminal narrowing. There is mild to moderate right foraminal narrowing at C4-5. The spondylosis at C5-6 encroaches on the right lateral recess with marked right foraminal narrowing at. There is moderate right foraminal narrowing at C6-7. PARASPINAL SOFT TISSUES: No prevertebral soft tissue fluid collections are identified. ADDITIONAL FINDINGS: None. IMPRESSION: 1. There is no CT evidence of acute fracture involving the cervical spine. 2. There are continued multilevel degenerative the changes as detailed above. Signer Name: Adalberto Winkler MD Signed: 03/27/2021 7:45 PM Workstation Name: [id number]
[2021-03-28 00:56] VITALS: BP 124/82
--- NOTE | 2021-04-02 13:14 | Electrocardiograph Report ---
[facility] Test Date: 2021-03-27 Test Time: 17:41:07 Pat Name: ANDREW RASHID Department: Room: Gender: M Cardiac Cath Lab Manager: MARIEL : [id number] Requested By: NATALIA PIZARRO Order Number: [id number] Reading MD: Candace Arteaga Measurements Intervals [place] Rate: 77 P: PA: QRS: 71 QRSD: 109 T: 9 QT: 417 QTc: 472 Interpretive Statements Poor quality ECG Sinus rhythm Poor R wave progression Lateral ST depression, consider ischemia Compared to ECG 12/17/2020 09:51:40 Sinus rate has decreased PVCs are no longer evident Inferior lateral T wave inversions are less prominent Electronically Signed On 04-02-2021 13:14:07 EST by Candace Arteaga
== END 2021-03-28 00:15 | disposition home or self-care (01) ==
LOC: ED 15:21
DX: S09.90XA Unspecified injury of head, initial encounter (principal); F10.10 Alcohol abuse, uncomplicated; E83.42 Hypomagnesemia; G40.909 Epilepsy, unspecified, not intractable, without status epilepticus; R84.2 Abnormal level of other drugs, medicaments and biological substances in specimens from respiratory organs and thorax; R26.9 Unspecified abnormalities of gait and mobility; W19.XXXA Unspecified fall, initial encounter; Y93.89 Activity, other specified; Y92.89 Other specified places as the place of occurrence of the external cause; Y99.8 Other external cause status
CPT/HCPCS: 36415; 70450; 72125; 80048; 80185; 82550; 82962; 83735; 85025; 93005; 93010; 96365; 96366; 96368; 96375; 99284; J1165; J3360; J3411; J3490; J7030; J7050; 80320; Q0162; G0480

== ENCOUNTER 2021-04-07 19:51 | Inpatient (IN) | payer SELFPAY ==
[2021-04-07] MEDS ORDERED: COLCHICINE 0.6 MG TAB PO ONE (22:58)
[2021-04-07] MEDS ORDERED: levETIRAcetam 1000 MG/NS 0.75% 1,000 MG/100 ML BAG IV ONE (22:58)
[2021-04-07] MEDS ORDERED: KETOROLAC 30 MG/1 ML INJ IV ONE (22:58)
[2021-04-07 23:53] LABS: Basophils # (Auto) 0.1 K/mm3 (0.0-0.1); Basophils % (Auto) 1.6 % (0.0-1.8); Eosinophils # (Auto) 0.2 K/mm3 (0.0-0.4); Eosinophils % (Auto) 2.9 % (0.0-4.3); Hematocrit 43.2 % (35.5-45.6); Hemoglobin 14.9 gm/dl (11.8-15.2); Lymphocytes # (Auto) 1.4 K/mm3 (1.2-5.4); Lymphocytes % (Auto) 26.1 % (13.4-35.0); Mean Corpuscular HGB Conc 35 % (32-34); Mean Corpuscular Volume 105 fl (84-94); Monocytes # (Auto) 0.8 K/mm3 (0.0-0.8); Monocytes % (Auto) 14.6 % (0.0-7.3); Platelet Count 332 K/mm3 (140-440); Red Blood Count 4.11 M/mm3 (3.65-5.03); Red Cell Distribution Width 18.3 % (13.2-15.2)
--- NOTE | 2021-04-07 23:59 | XRay Report ---
CERVICAL SPINE, 3 VIEWS INDICATION / CLINICAL INFORMATION: fall/ pain after SZ. COMPARISON: CT cervical spine 03/27/2021 FINDINGS: Vertebral body heights are maintained. Alignment is normal. Diffuse spondylitic changes noted through out the cervical spine. IMPRESSION: No evidence for fracture or traumatic malalignment.. Moderate diffuse spondylytic change. Signer Name: Norma Orellana MD Signed: 04/07/2021 11:55 PM Workstation Name: [id number]
[2021-04-08 00:10] LABS: Blood Urea Nitrogen 4 mg/dL (9-20); Calcium 8.2 mg/dL (8.4-10.2); Hemolysis Index 9
[2021-04-08 00:15] LABS: BUN/Creatinine Ratio 7
[2021-04-08] MEDS ORDERED: SODIUM CHLORIDE 0.9% 1000 ML 1,000 ML IV ONE ×2 (01:35)
[2021-04-08] MEDS ORDERED: COLCHICINE 0.6 MG TAB PO ONE (01:35)
--- NOTE | 2021-04-08 01:59 | Emergency Department Report ---
ED General Adult HPI - General Chief complaint: Extremity Injury, Lower Stated complaint: GOUT FLARE UP Time Seen by Provider: 04/07/21 22:49 Source: EMS Mode of arrival: Stretcher Limitations: No Limitations - History of Present Illness Initial comments: Patient is a 65-year-old male with a past medical history of gout history of seizures who is also homeless who is presenting with right hand pain. Patient states he believes this is from his gout. Pain estimate is 7 out of 10 in severity. Patient also states he believes he had a seizure earlier today. Initially states he takes Dilantin but then states that he thinks he may have been switched to Keppra. Patient likely has been noncompliant with medications since he cannot tell me how often he takes his medications. Patient complaining of some neck discomfort since his seizure this morning. Patient has some generalized weakness and fatigue but is no longer postictal. Severity scale (0 -10): 7 - Related Data Previous Rx's Medication Instructions Recorded Last Taken Type Aspirin EC [Halfprin EC] 81 mg PO QDAY #30 tablet 12/18/20 Unknown Rx Losartan [Cozaar] 25 mg PO QDAY #30 tablet 12/18/20 Unknown Rx carvediloL [Coreg] 6.25 mg PO BID #60 tablet 12/18/20 Unknown Rx hydrOXYzine HCL [Atarax] 25 mg PO Q6HR PRN #10 tablet 03/12/21 Unknown Rx Quetiapine Fumarate [SEROquel] 50 mg PO QHS 30 Days #30 tab 03/17/21 Unknown Rx hydrOXYzine PAMOATE [Vistaril] 25 mg PO Q6HR PRN 30 Days #90 03/17/21 Unknown Rx capsule Calcium Carbonate [Oscal 1250MG 1,250 mg PO BID #60 tablet 03/18/21 Unknown Rx TAB] Folic Acid [Folvite] 1 mg PO QDAY #30 tablet 03/27/21 Unknown Rx Magnesium 200 mg PO DAILY #7 tablet 03/27/21 Unknown Rx Multivitamin Tab [Multiple Vitamin 1 each PO DAILY #30 tablet 03/27/21 Unknown Rx TAB (Theragran)] Phenytoin [Dilantin] 100 mg PO Q8HR #90 capsule 03/27/21 Unknown Rx Thiamine [Vitamin B-1] 100 mg PO QDAY #30 tablet 03/27/21 Unknown Rx Allergies Allergy/AdvReac Type Severity Reaction Status Date / Time olanzapine [From Zyprexa] Allergy Nausea Verified 03/12/21 19:20 ED Review of Systems ROS: Stated complaint: GOUT FLARE UP Other details as noted in HPI Comment: All other systems reviewed and negative ED Past Medical Hx - Past Medical History Hx Hypertension: Yes Hx Congestive Heart Failure: No Hx Diabetes: No Hx Seizures: Yes Hx Psychiatric Treatment: Yes (anxiety psychosis) Hx Asthma: Yes Hx COPD: No Additional medical history: Alcoholism. pancreatitis. legally blind - Surgical History Additional Surgical History: R knee surgery, left lung injury HIP SURGERY - Social History Smoking Status: Smoker, Current Status Unknown - Medications Home Medications: Home Medications Medication Instructions Recorded Confirmed Last Taken Type Aspirin EC [Halfprin EC] 81 mg PO QDAY #30 tablet 12/18/20 03/18/21 Unknown Rx Losartan [Cozaar] 25 mg PO QDAY #30 tablet 12/18/20 03/18/21 Unknown Rx carvediloL [Coreg] 6.25 mg PO BID #60 tablet 12/18/20 03/18/21 Unknown Rx hydrOXYzine HCL [Atarax] 25 mg PO Q6HR PRN #10 tablet 03/12/21 03/18/21 Unknown Rx Quetiapine Fumarate [SEROquel] 50 mg PO QHS 30 Days #30 tab 03/17/21 Unknown Rx hydrOXYzine PAMOATE [Vistaril] 25 mg PO Q6HR PRN 30 Days #90 03/17/21 Unknown Rx capsule Calcium Carbonate [Oscal 1250MG 1,250 mg PO BID #60 tablet 03/18/21 Unknown Rx TAB] Folic Acid [Folvite] 1 mg PO QDAY #30 tablet 03/27/21 Unknown Rx Magnesium 200 mg PO DAILY #7 tablet 03/27/21 Unknown Rx Multivitamin Tab [Multiple Vitamin 1 each PO DAILY #30 tablet 03/27/21 Unknown Rx TAB (Theragran)] Phenytoin [Dilantin] 100 mg PO Q8HR #90 capsule 03/27/21 Unknown Rx Thiamine [Vitamin B-1] 100 mg PO QDAY #30 tablet 03/27/21 Unknown Rx ED Physical Exam - General Limitations: No Limitations General appearance: alert, in no apparent distress - Head Head exam: Present: atraumatic, normocephalic - Eye Eye exam: Present: normal appearance - ENT ENT exam: Present: mucous membranes moist - Neck Neck exam: Present: normal inspection - Respiratory Respiratory exam: Present: normal lung sounds bilaterally. Absent: respiratory distress, wheezes, rales, rhonchi - Cardiovascular Cardiovascular Exam: Present: regular rate, normal rhythm, normal heart sounds. Absent: systolic murmur, diastolic murmur, rubs, gallop - GI/Abdominal GI/Abdominal exam: Present: soft, normal bowel sounds. Absent: distended, tenderness, guarding, rebound - Rectal Rectal exam: Present: deferred - Extremities Exam Extremities exam: Present: normal inspection - Expanded Upper Extremity Exam Right Hand Wrist exam: Present: full ROM, tenderness, swelling, other (Erythema. Swelling is consistent with gout exacerbation) - Back Exam Back exam: Present: normal inspection - Neurological Exam Neurological exam: Present: alert, oriented X3 - Psychiatric Psychiatric exam: Present: normal affect, normal mood - Skin Skin exam: Present: warm, dry, intact, normal color. Absent: rash ED Course Vital Signs 04/07/21 04/08/21 19:59 00:01 Temperature 98.7 F Pulse Rate 84 Respiratory 18 16 Rate Blood Pressure 144/80 [Right] O2 Sat by Pulse 98 Oximetry ED Medical Decision Making - Lab Data Result diagrams: 04/07/21 23:36 04/07/21 23:36 Lab Results 04/07/21 04/07/21 Range/Units 23:36 23:36 WBC 5.3 (4.5-11.0) K/mm3 RBC 4.11 (3.65-5.03) M/mm3 Hgb 14.9 (11.8-15.2) gm/dl Hct 43.2 (35.5-45.6) % MCV 105 H (84-94) fl MCH 36 H (28-32) pg MCHC 35 H (32-34) % RDW 18.3 H (13.2-15.2) % Plt Count 332 (140-440) K/mm3 Lymph % (Auto) 26.1 (13.4-35.0) % [place] % (Auto) 14.6 H (0.0-7.3) % Eos % (Auto) 2.9 (0.0-4.3) % Baso % (Auto) 1.6 (0.0-1.8) % Lymph # (Auto) 1.4 (1.2-5.4) K/mm3 [place] # (Auto) 0.8 (0.0-0.8) K/mm3 Eos # (Auto) 0.2 (0.0-0.4) K/mm3 Baso # (Auto) 0.1 (0.0-0.1) K/mm3 Seg Neutrophils % 54.8 (40.0-70.0) % Seg Neutrophils # 2.9 (1.8-7.7) K/mm3 Sodium 124 L (137-145) mmol/L Potassium 4.2 (3.6-5.0) mmol/L Chloride 88.9 L (98-107) mmol/L Carbon Dioxide 24 (22-30) mmol/L Anion Gap 15 mmol/L BUN 4 L (9-20) mg/dL Creatinine 0.6 L (0.8-1.3) mg/dL Estimated GFR > 60 ml/min BUN/Creatinine Ratio 7 % Glucose 91 (75-100) mg/dL Calcium 8.2 L (8.4-10.2) mg/dL - Medical Decision Making Patient placed in seizure precautions. Patient given treatment for acute gout to the arthritis flareup. Laboratory studies were performed since the patient states he had a seizure earlier today. I do show a low sodium of 124. Patient started on IV hydration. Patient loaded with Keppra. Patient to be admitted for further IV hydration Critical care attestation.: If time is entered above; I have spent that time in minutes in the direct care of this critically ill patient, excluding procedure time. ED Disposition Clinical Impression: Hyponatremia, Seizures, Gout attack, Cervical strain, acute Disposition: 01 HOME / SELF CARE / HOMELESS Is pt being admited?: Yes Does the pt Need Aspirin: No Condition: Stable Time of Disposition: 03:36
[2021-04-08] MEDS ORDERED: MORPHINE 2 MG/1 ML INJ IV ONE (03:34)
[2021-04-08] MEDS ORDERED: LORazepam 2 MG/ML VIAL IV ONE (03:34)
[2021-04-08] MEDS ORDERED: ONDANSETRON 4 MG/2 ML INJ IV PRN (04:24)
[2021-04-08] MEDS ORDERED: ACETAMINOPHEN 650 MG RECT SUPP PR PRN (04:24)
[2021-04-08] MEDS ORDERED: LORazepam 2 MG/ML VIAL IV PRN ×2 (04:24)
[2021-04-08] MEDS ORDERED: MAGNESIUM HYDROXIDE (MOM) ORAL LIQD UDC PO PRN (04:24)
[2021-04-08] MEDS ORDERED: MORPHINE 4 MG/1 ML INJ IV PRN (04:24)
[2021-04-08] MEDS ORDERED: SODIUM CHLORIDE 0.9% 1000 ML 1,000 ML IV SCH (04:30)
--- NOTE | 2021-04-08 04:35 | History and Physical Report ---
History of Present Illness Date of examination: 04/08/21 Date of admission: 04/08/2021 Chief complaint: Right hand pain History of present illness: 65-year-old male with known history of seizure disorder and gout who is currently homeless presents to the emergency room today complaining of right hand pain. Patient indicates that pain may be secondary to flareup of his gout. In a scale of 10 pain was about 7-8 over 10 in severity. He denies any recent trauma to the hand and denies any fall. Patient is on antiseizure medications were no quite sure when I was switched to Keppra from Dilantin. He has not been quite compliant with his seizure medications. He believes he had a seizure activity today. Patient denies any fever or chills, no chest pain or shortness of breath, no nausea vomiting and no abdominal pain. Upon arrival in the emergency room patient had generalized weakness. Work-up in the emergency room today, significant findings were that of h yponatremia 124. Patient was given colchicine, Toradol for his gout pain in the emergency room. He was subsequently also placed on IV Keppra. Past History Past Medical History: hypertension, seizures, other (Homelessness, gout,Alcoholism. pancreatitis. legally blind) Past Surgical History: Other (R knee surgery, left lung injury HIP SURGERY) Social history: smoking (Current daily smoker), alcohol abuse, other (Homeless) Family history: no significant family history Medications and Allergies Allergies Allergy/AdvReac Type Severity Reaction Status Date / Time olanzapine [From Zyprexa] Allergy Nausea Verified 03/12/21 19:20 Home Medications Medication Instructions Recorded Confirmed Last Taken Type Aspirin EC [Halfprin EC] 81 mg PO QDAY #30 tablet 12/18/20 03/18/21 Unknown Rx Losartan [Cozaar] 25 mg PO QDAY #30 tablet 12/18/20 03/18/21 Unknown Rx carvediloL [Coreg] 6.25 mg PO BID #60 tablet 12/18/20 03/18/21 Unknown Rx hydrOXYzine HCL [Atarax] 25 mg PO Q6HR PRN #10 tablet 03/12/21 03/18/21 Unknown Rx Quetiapine Fumarate [SEROquel] 50 mg PO QHS 30 Days #30 tab 03/17/21 Unknown Rx hydrOXYzine PAMOATE [Vistaril] 25 mg PO Q6HR PRN 30 Days #90 03/17/21 Unknown Rx capsule Calcium Carbonate [Oscal 1250MG 1,250 mg PO BID #60 tablet 03/18/21 Unknown Rx TAB] Folic Acid [Folvite] 1 mg PO QDAY #30 tablet 03/27/21 Unknown Rx Magnesium 200 mg PO DAILY #7 tablet 03/27/21 Unknown Rx Multivitamin Tab [Multiple Vitamin 1 each PO DAILY #30 tablet 03/27/21 Unknown Rx TAB (Theragran)] Phenytoin [Dilantin] 100 mg PO Q8HR #90 capsule 03/27/21 Unknown Rx Thiamine [Vitamin B-1] 100 mg PO QDAY #30 tablet 03/27/21 Unknown Rx Active Meds: Active Medications Acetaminophen (Acetaminophen 650 Mg Rect Supp) 650 mg [place] Q4H PRN PRN Reason: Pain MILD(1-3)/Fever >100.5/CAAL Sodium Chloride (Nacl 0.9% 1000 Ml) 1,000 mls @ 125 mls/hr IV DIRECT DG Lorazepam (Lorazepam 2 Mg/Ml Vial) 2 mg IV Q1H PRN PRN Reason: CIWA-Ar 8-15 Lorazepam (Lorazepam 2 Mg/Ml Vial) 4 mg IV Q1H PRN PRN Reason: CIWA-Ar 16-25 Lorazepam (Lorazepam 2 Mg/Ml Vial) 4 mg IV Q15MIN PRN PRN Reason: CIWA-Ar >25 Magnesium Hydroxide (Magnesium Hydroxide (Mom) Oral Liqd Udc) 30 ml PO Q4H PRN PRN Reason: Constipation Morphine Sulfate (Morphine 2 Mg/1 Ml Inj) 2 mg IV Q4H PRN PRN Reason: Pain, Moderate (4-6) Morphine Sulfate (Morphine 4 Mg/1 Ml Inj) 4 mg IV Q4H PRN PRN Reason: Pain , Severe (7-10) Ondansetron HCl (Ondansetron 4 Mg/2 Ml Inj) 4 mg IV Q8H PRN PRN Reason: Nausea And Vomiting Sodium Chloride (Sodium Chloride 0.9% 10 Ml Flush Syringe) 10 ml IV BID DG Sodium Chloride (Sodium Chloride 0.9% 10 Ml Flush Syringe) 10 ml IV PRN PRN PRN Reason: LINE FLUSH Review of Systems Constitutional: no fever, no chills Ears, nose, mouth and throat: no nasal congestion, no sore throat Cardiovascular: no chest pain, no palpitations Respiratory: no cough, no shortness of breath Gastrointestinal: no abdominal pain, no nausea, no vomiting, no diarrhea Genitourinary Male: no dysuria, no hematuria, no flank pain, no nocturia Musculoskeletal: no neck pain, no low back pain Integumentary: no rash, no pruritis Neurological: no headaches, no confusion Psychiatric: no anxiety, no depression Endocrine: no polyphagia, no polydipsia, no polyuria, no nocturia Exam - Constitutional Vitals: Temp Pulse Resp BP Pulse Ox 98.7 F 84 14 144/80 98 04/07/21 19:59 04/07/21 19:59 04/08/21 03:49 04/07/21 19:59 04/07/21 19:59 General appearance: Present: no acute distress, well-nourished - EENT Eyes: Present: PERRL, EOM intact. Absent: scleral icterus ENT: hearing intact, clear oral mucosa, dentition normal - Neck Neck: Present: supple, normal ROM - Respiratory Respiratory effort: normal Respiratory: bilateral: CTA - Cardiovascular Rhythm: regular Heart Sounds: Present: S1 & S2. Absent: gallop, systolic murmur, diastolic murmur, rub, click - Extremities Extremities: no ischemia, pulses intact, pulses symmetrical, No edema, normal temperature, normal color, Full ROM Extremity abnormal: tenderness (Mild swelling and tenderness seen right hand and both feet. Right foot feels mildly warm to touch) Peripheral Pulses: within normal limits - Abdominal General gastrointestinal: Present: soft, non-tender, non-distended, normal bowel sounds. Absent: mass - Integumentary Integumentary: Present: clear, warm, dry, normal turgor. Absent: rash - Musculoskeletal Musculoskeletal: strength equal bilaterally - Psychiatric Psychiatric: appropriate mood/affect, intact judgment & insight, memory intact, cooperative - Neurologic Neurologic: CNII-XII intact, no focal deficits, moves all extremities Results - Labs CBC & Chem 7: 04/07/21 23:36 04/07/21 23:36 Labs: Abnormal lab results 04/07/21 04/07/21 Range/Units 23:36 23:36 MCV 105 H (84-94) fl MCH 36 H (28-32) pg MCHC 35 H (32-34) % RDW 18.3 H (13.2-15.2) % [place] % (Auto) 14.6 H (0.0-7.3) % Sodium 124 L (137-145) mmol/L Chloride 88.9 L (98-107) mmol/L BUN 4 L (9-20) mg/dL Creatinine 0.6 L (0.8-1.3) mg/dL Calcium 8.2 L (8.4-10.2) mg/dL Assessment and Plan - Patient Problems (1) Gout attack Current Visit: Yes Status: Acute Plan to address problem: Patient placed on analgesic medication. We'll resume routine home medications. (2) Hyponatremia Current Visit: Yes Status: Acute Plan to address problem: Patient placed on IV fluid normal saline. Will monitor for chemistry. (3) Seizures Current Visit: Yes Status: Acute Plan to address problem: We'll place patient on seizure precautions. We'll continue on Keppra. Consult placed to neurology for evaluation. (4) Alcohol dependence Current Visit: No Status: Acute Plan to address problem: Place patient on CIWA protocol. (5) DVT prophylaxis Current Visit: No Status: Acute Plan to address problem: Patient placed on subcutaneous heparin. (6) Full code status Current Visit: No Status: Acute Plan to address problem: Patient is full code.
--- NOTE | 2021-04-08 08:51 | Consultation ---
History of Present Illness Consult date: 04/08/21 Reason for Consult: pain in hand and hx of seizure History of present illness: Right hand pain History of present illness: 65-year-old male with known history of seizure disorder and gout who is currently homeless presents to the emergency room today complaining of right hand pain. Patient indicates that pain may be secondary to flareup of his gout. In a scale of 10 pain was about 7-8 over 10 in severity. He denies any recent trauma to the hand and denies any fall. Patient is on antiseizure medications were no quite sure when I was switched to Keppra from Dilantin. He has not been quite compliant with his seizure medications. He believes he had a seizure activity today.? Patient denies any fever or chills, no chest pain or shortness of breath, no nausea vomiting and no abdominal pain. Upon arrival in the emergency room patient had generalized weakness. Work-up in the emergency room today, significant findings were that of hyponatremia 124. Patient was given colchicine, Toradol for his gout pain in the emergency room. He was subsequently also placed on IV Keppra. he is recently D/C from hospital last month for same complaint MRI Brain was unremarkable he denied alcohol intake , according to him he is taking his seizure medication Past History Past Medical History: hypertension, seizures, other (Homelessness, gout,Alcoholism. pancreatitis. legally blind) Past Surgical History: Other (R knee surgery, left lung injury HIP SURGERY) Social history: smoking (Current daily smoker), alcohol abuse, other (Homeless) Family history: no significant family history Medications and Allergies Allergies Allergy/AdvReac Type Severity Reaction Status Date / Time olanzapine [From Zyprexa] Allergy Nausea Verified 03/12/21 19:20 Home Medications Medication Instructions Recorded Confirmed Last Taken Type Aspirin EC [Halfprin EC] 81 mg PO QDAY #30 tablet 12/18/20 03/18/21 Unknown Rx Losartan [Cozaar] 25 mg PO QDAY #30 tablet 12/18/20 03/18/21 Unknown Rx carvediloL [Coreg] 6.25 mg PO BID #60 tablet 12/18/20 03/18/21 Unknown Rx hydrOXYzine HCL [Atarax] 25 mg PO Q6HR PRN #10 tablet 03/12/21 03/18/21 Unknown Rx Quetiapine Fumarate [SEROquel] 50 mg PO QHS 30 Days #30 tab 03/17/21 Unknown Rx hydrOXYzine PAMOATE [Vistaril] 25 mg PO Q6HR PRN 30 Days #90 03/17/21 Unknown Rx capsule Calcium Carbonate [Oscal 1250MG 1,250 mg PO BID #60 tablet 03/18/21 Unknown Rx TAB] Folic Acid [Folvite] 1 mg PO QDAY #30 tablet 03/27/21 Unknown Rx Magnesium 200 mg PO DAILY #7 tablet 03/27/21 Unknown Rx Multivitamin Tab [Multiple Vitamin 1 each PO DAILY #30 tablet 03/27/21 Unknown Rx TAB (Theragran)] Phenytoin [Dilantin] 100 mg PO Q8HR #90 capsule 03/27/21 Unknown Rx Thiamine [Vitamin B-1] 100 mg PO QDAY #30 tablet 03/27/21 Unknown Rx Active Meds: Active Medications Acetaminophen (Acetaminophen 650 Mg Rect Supp) 650 mg [place] Q4H PRN PRN Reason: Pain MILD(1-3)/Fever >100.5/CAAL Sodium Chloride (Nacl 0.9% 1000 Ml) 1,000 mls @ 125 mls/hr IV DIRECT DG Lorazepam (Lorazepam 2 Mg/Ml Vial) 2 mg IV Q1H PRN PRN Reason: CIWA-Ar 8-15 Lorazepam (Lorazepam 2 Mg/Ml Vial) 4 mg IV Q1H PRN PRN Reason: CIWA-Ar 16-25 Lorazepam (Lorazepam 2 Mg/Ml Vial) 4 mg IV Q15MIN PRN PRN Reason: CIWA-Ar >25 Magnesium Hydroxide (Magnesium Hydroxide (Mom) Oral Liqd Udc) 30 ml PO Q4H PRN PRN Reason: Constipation Morphine Sulfate (Morphine 2 Mg/1 Ml Inj) 2 mg IV Q4H PRN PRN Reason: Pain, Moderate (4-6) Morphine Sulfate (Morphine 4 Mg/1 Ml Inj) 4 mg IV Q4H PRN PRN Reason: Pain , Severe (7-10) Ondansetron HCl (Ondansetron 4 Mg/2 Ml Inj) 4 mg IV Q8H PRN PRN Reason: Nausea And Vomiting Sodium Chloride (Sodium Chloride 0.9% 10 Ml Flush Syringe) 10 ml IV BID DG Sodium Chloride (Sodium Chloride 0.9% 10 Ml Flush Syringe) 10 ml IV PRN PRN PRN Reason: LINE FLUSH Review of Systems Constitutional: no fever, no chills Ears, nose, mouth and throat: no nasal congestion, no sore throat Cardiovascular: no chest pain, no palpitations Respiratory: no cough, no shortness of breath Gastrointestinal: no abdominal pain, no nausea, no vomiting, no diarrhea Genitourinary Male: no dysuria, no hematuria, no flank pain, no nocturia Musculoskeletal: no neck pain, no low back pain Integumentary: no rash, no pruritis Neurological: no headaches, no confusion Psychiatric: no anxiety, no depression Endocrine: no polyphagia, no polydipsia, no polyuria, no nocturia Past History Past Medical History: hypertension, seizures, other (Homelessness, gout,Alcoholism. pancreatitis. legally blind) Past Surgical History: Other (R knee surgery, left lung injury HIP SURGERY) Social history: smoking (Current daily smoker), alcohol abuse, other (Homeless) Family history: no significant family history Medications and Allergies Allergies Allergy/AdvReac Type Severity Reaction Status Date / Time olanzapine [From Zyprexa] Allergy Nausea Verified 03/12/21 19:20 Home Medications Medication Instructions Recorded Confirmed Last Taken Type Aspirin EC [Halfprin EC] 81 mg PO QDAY #30 tablet 12/18/20 03/18/21 Unknown Rx Losartan [Cozaar] 25 mg PO QDAY #30 tablet 12/18/20 03/18/21 Unknown Rx carvediloL [Coreg] 6.25 mg PO BID #60 tablet 12/18/20 03/18/21 Unknown Rx hydrOXYzine HCL [Atarax] 25 mg PO Q6HR PRN #10 tablet 03/12/21 03/18/21 Unknown Rx Quetiapine Fumarate [SEROquel] 50 mg PO QHS 30 Days #30 tab 03/17/21 Unknown Rx hydrOXYzine PAMOATE [Vistaril] 25 mg PO Q6HR PRN 30 Days #90 03/17/21 Unknown Rx capsule Calcium Carbonate [Oscal 1250MG 1,250 mg PO BID #60 tablet 03/18/21 Unknown Rx TAB] Folic Acid [Folvite] 1 mg PO QDAY #30 tablet 03/27/21 Unknown Rx Magnesium 200 mg PO DAILY #7 tablet 03/27/21 Unknown Rx Multivitamin Tab [Multiple Vitamin 1 each PO DAILY #30 tablet 03/27/21 Unknown Rx TAB (Theragran)] Phenytoin [Dilantin] 100 mg PO Q8HR #90 capsule 03/27/21 Unknown Rx Thiamine [Vitamin B-1] 100 mg PO QDAY #30 tablet 03/27/21 Unknown Rx Active Meds: Active Medications Acetaminophen (Acetaminophen 650 Mg Rect Supp) 650 mg [place] Q4H PRN PRN Reason: Pain MILD(1-3)/Fever >100.5/CAAL Heparin Sodium (Porcine) (Heparin 5,000 Unit/1 Ml Vial) 5,000 unit SUB-Q Q8HR DG Sodium Chloride (Nacl 0.9% 1000 Ml) 1,000 mls @ 125 mls/hr IV DIRECT DG Levetiracetam 500 mg/ Dextrose 105 mls @ 400 mls/hr IV Q12HR DG Lorazepam (Lorazepam 2 Mg/Ml Vial) 2 mg IV Q1H PRN PRN Reason: CIWA-Ar 8-15 Lorazepam (Lorazepam 2 Mg/Ml Vial) 4 mg IV Q1H PRN PRN Reason: CIWA-Ar 16-25 Lorazepam (Lorazepam 2 Mg/Ml Vial) 4 mg IV Q15MIN PRN PRN Reason: CIWA-Ar >25 Magnesium Hydroxide (Magnesium Hydroxide (Mom) Oral Liqd Udc) 30 ml PO Q4H PRN PRN Reason: Constipation Morphine Sulfate (Morphine 2 Mg/1 Ml Inj) 2 mg IV Q4H PRN PRN Reason: Pain, Moderate (4-6) Morphine Sulfate (Morphine 4 Mg/1 Ml Inj) 4 mg IV Q4H PRN PRN Reason: Pain , Severe (7-10) Ondansetron HCl (Ondansetron 4 Mg/2 Ml Inj) 4 mg IV Q8H PRN PRN Reason: Nausea And Vomiting Sodium Chloride (Sodium Chloride 0.9% 10 Ml Flush Syringe) 10 ml IV BID DG Sodium Chloride (Sodium Chloride 0.9% 10 Ml Flush Syringe) 10 ml IV PRN PRN PRN Reason: LINE FLUSH Physical Examination - Vital Signs Vital Signs: Vital Signs Temp Pulse Resp BP Pulse Ox 98.7 F 84 18 144/80 98 04/07/21 19:59 04/07/21 19:59 04/07/21 19:59 04/07/21 19:59 04/07/21 19:59 - Constitutional General appearance: comfortable - EENT EENT: Present: PERRL, mucous membranes moist - Respiratory Respiratory: Present: lungs clear, rhonchi - Cardiovascular Cardiovascular: Present: regular rate, normal S1, normal S2 Extremities: Present: no peripheral edema bilatateraly, no clubbing, cyanosis - Gastrointestinal Gastrointestinal: Present: normoactive bowel sounds - Integumentary Integumentary: Present: normal - Neurologic Cranial nerve examination: PERRL, EOMI, intact Speech examination: intact Sensorimotor examination: intact Detailed motor examination: grossly full strength in - Musculoskeletal Musculoskeletal: Present: other (swelling and tender right hand no limited movment) Results - Laboratory Findings CBC and BMP: 04/07/21 23:36 04/08/21 09:57 Abnormal Lab Findings: Abnormal Labs 04/07/21 04/07/21 23:36 23:36 MCV 105 H MCH 36 H MCHC 35 H RDW 18.3 [place] % (Auto) 14.6 H Sodium 124 L Chloride 88.9 L BUN 4 L Creatinine 0.6 L Calcium 8.2 L Assessment and Plan Assessment and Plan 65-year-old male with known history of seizure disorder and gout who is currently homeless presents to the emergency room today complaining of right hand pain. Patient indicates that pain may be secondary to flareup of his gout. In a scale of 10 pain was about 7-8 over 10 in severity. He denies any recent trauma to the hand and denies any fall. Patient is on antiseizure medications were no quite sure when I was switched to Keppra from Dilantin. He has not been quite compliant with his seizure medications. He believes he had a seizure activity today. - Patient Problems # Seizures disorder -recurrnet seizure -not sure if had seizure yesterday -not sure if he is compling with medications -recent admission due to same -started on keppra 1000 mg bid -recent brain MRI is unremarkable 03/2021 -Seizure precaution -No alcohol -No driving -Neurology or PCP follow up # Alcohol dependence -Place patient on [facility] protocol. # Gout attack -Patient placed on analgesic medication. -We'll resume routine home medications. -Xry right hand -drug seeking behavior # Hyponatremia -Patient placed on IV fluid normal saline. Will monitor for chemistry. # DVT prophylaxis -Patient placed on subcutaneous heparin. #Full code status -Patient is full code.
[2021-04-08] MEDS: LORazepam 2 MG/ML VIAL IV PRN ×2 (09:44→14:51)
[2021-04-08] MEDS: MORPHINE 2 MG/1 ML INJ IV PRN ×3 (09:44→23:03)
[2021-04-08] MEDS ORDERED: levETIRAcetam 500 MG in DEXTROSE 5% IN WATER 100 ML IV SCH (10:00)
--- NOTE | 2021-04-08 10:59 | Cat Scan Report ---
CT head/brain wo con INDICATION / CLINICAL INFORMATION: 65 years Male; seizure. TECHNIQUE: Routine CT head without contrast. All CT scans at this location are performed using CT dos e reduction for ALARA by means of automated exposure control. COMPARISON: 03/27/2021 FINDINGS: BRAIN / INTRACRANIAL CONTENTS: No acute hemorrhage, mass effect, midline shift, hydrocephalus, or acu te, large territorial infarct. Mild, diffuse cerebral and cerebellar atrophy. Mild degree of hippocampal atrophy suggested bilateral ly. There are [id number] areas of decreased attenuation in the white matter of the cerebral hemisph eres, as well as the gangliocapsular regions. These are nonspecific findings and may be related to mi croangiopathy (hypertension, diabetes, atherosclerosis), given the patient's age. It might be difficu lt to evaluate for small areas of ischemia without diffusion imaging by MRI. CRANIOCERVICAL JUNCTION: No significant abnormality. ORBITS: No significant abnormality of visualized orbits. SINUSES / MASTOIDS: Mild to moderate mucosal thickening in the ethmoids. Similar findings seen in the right maxillary antrum. Mild to moderate mucosal thickening also seen in the right mastoid region. ADDITIONAL FINDINGS: Atherosclerotic disease is seen in the anterior and posterior circulation. IMPRESSION: 1. No focal mass, hemorrhage, hydrocephalus, or acute, large territorial infarct. Signer Name: Igor Fiore MD, III Signed: 04/08/2021 10:54 AM Workstation Name: [id number]
--- NOTE | 2021-04-08 11:49 | Event Note ---
Date: 04/08/21 Patient examined in the emergency department. Physical exam notable for significant swelling of the right hand and right ankle. Patient with history of gout. Will treat. Started CIWA protocol and home medications. Pending neurology consult.
[2021-04-08] MEDS ORDERED: carvediloL 6.25 MG TAB PO SCH (12:00)
--- NOTE | 2021-04-08 13:49 | XRay Report ---
RIGHT HAND 1 VIEW(S) INDICATION / CLINICAL INFORMATION: swelling right hand COMPARISON: None available. FINDINGS: BONES / JOINT(S): No acute fracture or dislocation is seen in the right hand on single view. There ar e scattered mild degenerative changes of the joints. No erosions are identified. There are degenerati ve changes in the wrist as well. SOFT TISSUES: No significant abnormality. ADDITIONAL FINDINGS: None. Signer Name: Rico Jain MD Signed: 04/08/2021 1:45 PM Workstation Name: [id number]
[2021-04-08] MEDS: FOLIC ACID 1 MG TAB PO SCH (14:45)
[2021-04-08] MEDS: THIAMINE 100 MG TAB PO SCH (14:46)
[2021-04-08] MEDS: predniSONE 20 MG TAB PO SCH (14:46)
[2021-04-08] MEDS: HEPARIN 5,000 UNIT/1 ML VIAL SUB-Q SCH ×2 (14:46→22:21)
[2021-04-08] MEDS: ASPIRIN EC 81 MG TAB PO SCH (14:46)
[2021-04-08] MEDS: LOSARTAN 25 MG TAB PO SCH (17:36)
[2021-04-08] MEDS: levETIRAcetam 500 MG TAB PO SCH (22:20)
[2021-04-08] MEDS: COLCHICINE 0.6 MG TAB PO SCH (22:47)
[2021-04-09] MEDS: HEPARIN 5,000 UNIT/1 ML VIAL SUB-Q SCH ×3 (06:17→21:49)
[2021-04-09] MEDS: LORazepam 2 MG/ML VIAL IV PRN (06:17)
[2021-04-09 06:25] LABS: Basophils % (Auto) 1.1 % (0.0-1.8); Eosinophils % (Auto) 0.1 % (0.0-4.3); Hematocrit 38.2 % (35.5-45.6); Hemoglobin 12.9 gm/dl (11.8-15.2); Lymphocytes # (Auto) 0.9 K/mm3 (1.2-5.4); Mean Corpuscular HGB Conc 34 % (32-34); Mean Corpuscular Volume 107 fl (84-94); Monocytes # (Auto) 0.6 K/mm3 (0.0-0.8); Monocytes % (Auto) 14.3 % (0.0-7.3); Platelet Count 239 K/mm3 (140-440); Red Blood Count 3.58 M/mm3 (3.65-5.03)
[2021-04-09] MEDS: MORPHINE 2 MG/1 ML INJ IV PRN ×2 (06:29→15:33)
[2021-04-09 06:50] LABS: Blood Urea Nitrogen 9 mg/dL (9-20); Calcium 8.5 mg/dL (8.4-10.2); Hemolysis Index 35
[2021-04-09 07:00] LABS: BUN/Creatinine Ratio 15
--- NOTE | 2021-04-09 08:34 | Discharge Summary ---
Providers - Providers Date of Admission: 04/08/21 11:54 Attending physician: WANDER GIBBONS MD 04/08/21 04:24 Consult to Physician [CONS] Routine Comment: Consulting Provider: GEN ANGUIANO Physician Instructions: Reason For Exam: Seizure disorder 04/08/21 08:24 Consult to Case Management [CONS] Routine Services Needed at Discharge: Judge Clerk Notified:: case fitter Comment:: Homelessness Primary care physician: WIRELESS WATCHER Hospitalization Condition: Stable Exam - Constitutional Vitals: Temp Pulse Resp BP Pulse Ox 98.3 F 92 H 18 125/78 96 04/09/21 03:00 04/09/21 03:00 04/09/21 03:00 04/09/21 03:00 04/09/21 03:00 Plan Care Plan Goals: Follow-up with your primary care doctor. If you do not have one, please use the resources given to you to establish care. Please follow-up with neurologist to monitor seizure activity. Do not drive or operate machinery until then. Please stop drinking alcohol (including beer). Drinking lowers seizure threshold and also increases risk of gout flare. Follow up with: PRIMARY CARE, [Primary Care Provider] - 3-5 Days Prescriptions: Colchicine [Colcrys] 0.6 mg PO BID 3 Days #6 tablet Losartan [Cozaar] 25 mg PO QDAY #30 tablet predniSONE [Deltasone] 40 mg PO QDAY 6 Days #9 tablet Folic Acid [Folvite] 1 mg PO QDAY #30 tablet Aspirin EC [Halfprin EC] 81 mg PO QDAY #30 tablet levETIRAcetam [Keppra TAB] 1,000 mg PO BID 30 Days #120 tablet Thiamine [Vitamin B-1] 100 mg PO QDAY #30 tablet
[2021-04-09] MEDS: predniSONE 20 MG TAB PO SCH (10:30)
[2021-04-09] MEDS: ASPIRIN EC 81 MG TAB PO SCH (10:30)
[2021-04-09] MEDS: LOSARTAN 25 MG TAB PO SCH (10:30)
[2021-04-09] MEDS: THIAMINE 100 MG TAB PO SCH (10:30)
[2021-04-09] MEDS: levETIRAcetam 500 MG TAB PO SCH ×2 (10:30→21:48)
[2021-04-09] MEDS: COLCHICINE 0.6 MG TAB PO SCH ×2 (10:36→21:49)
[2021-04-09] MEDS: FOLIC ACID 1 MG TAB PO SCH (10:38)
--- NOTE | 2021-04-09 12:56 | Progress Note ---
Assessment and Plan Assessment and Plan 65-year-old male with known history of seizure disorder and gout who is currently homeless presents to the emergency room today complaining of right hand pain. Patient indicates that pain may be secondary to flareup of his gout. In a scale of 10 pain was about 7-8 over 10 in severity. He denies any recent trauma to the hand and denies any fall. Patient is on antiseizure medications were no quite sure when I was switched to Keppra from Dilantin. He has not been quite compliant with his seizure medications. He believes he had a seizure activity today. - Patient Problems # Seizures disorder -recurrnet seizure -not sure if had seizure yesterday -not sure if he is complying with medications -recent admission due to same -started on keppra 1000 mg bid -recent brain MRI is unremarkable 03/2021 -Seizure precaution -No alcohol -No driving -Neurology or PCP follow up # Alcohol dependence -Place patient on CIWA protocol. # Gout attack -Patient placed on analgesic medication. -We'll resume routine home medications. -Xry right hand is noted -drug seeking behavior # Hyponatremia -Patient placed on IV fluid normal saline. Will monitor for chemistry. # DVT prophylaxis -Patient placed on subcutaneous heparin. #Full code status -Patient is full code. will sign off pt. instructed to take medications as instructed avoid alcohol seizure precaution Subjective Date of service: 04/09/21 Principal diagnosis: seizure,Gout,Alcoholism Interval history: stable today no seizure, he is legally blind right hand swelling improved Xry right hand is noted Objective - Vital Sign Vital Signs - 12hr 04/09/21 04/09/21 04/09/21 02:58 03:00 07:25 Temperature 98.3 F 98.3 F 97.9 F Pulse Rate 92 H 92 H 85 Respiratory 18 18 20 Rate Blood Pressure 125/78 149/92 Blood Pressure 125/78 [Right] O2 Sat by Pulse 96 96 98 Oximetry - General Apperance Constitutional: comfortable - EENT EENT: PERRL, mucous membranes moist - Respiratory Respiratory: lungs clear, rhonchi - Cardiovascular Cardiovascular: regular rate, normal S1, normal S2 Extremities: no peripheral edema bilat, no clubbing, cyanosis - Gastrointestinal Gastrointestinal: normoactive bowel sounds - Integumentary Integumentary: normal - Neurologic Cranial nerve examination: PERRL, EOMI, intact Speech examination: intact Detailed motor examination: grossly full strength in - Laboratory Findings CBC and BMP: 04/09/21 04:28 04/09/21 04:28 Abnormal Lab Findings: Abnormal Labs 04/07/21 04/07/21 04/08/21 23:36 23:36 09:57 WBC RBC MCV 105 H MCH 36 H MCHC 35 H RDW 18.3 H [place] % (Auto) 14.6 H Lymph # (Auto) Sodium 124 L 128 L Chloride 88.9 L BUN 4 L Creatinine 0.6 L Glucose Calcium 8.2 L 04/09/21 04/09/21 04:28 04:28 WBC 4.2 L RBC 3.58 L MCV 107 H MCH 36 H MCHC RDW 18.0 H [place] % (Auto) 14.3 H Lymph # (Auto) 0.9 L Sodium 136 L D Chloride BUN Creatinine 0.6 L Glucose 105 H Calcium
[2021-04-10 04:03] VITALS: BP 158/96
[2021-04-10] MEDS: HEPARIN 5,000 UNIT/1 ML VIAL SUB-Q SCH (05:03)
[2021-04-10] MEDS: LORazepam 2 MG/ML VIAL IV PRN (05:08)
[2021-04-10] MEDS: COLCHICINE 0.6 MG TAB PO SCH (09:09)
[2021-04-10] MEDS: FOLIC ACID 1 MG TAB PO SCH (09:10)
[2021-04-10] MEDS: LOSARTAN 25 MG TAB PO SCH (09:10)
[2021-04-10] MEDS: predniSONE 20 MG TAB PO SCH (09:10)
[2021-04-10] MEDS: ASPIRIN EC 81 MG TAB PO SCH (09:10)
[2021-04-10] MEDS: THIAMINE 100 MG TAB PO SCH (09:10)
[2021-04-10] MEDS: levETIRAcetam 500 MG TAB PO SCH (09:10)
[2021-04-10] MEDS ORDERED: oxyCODONE /ACETAMINOPHEN 5-325MG TAB PO PRN (11:07)
== END 2021-04-10 14:03 | disposition home or self-care (01) | DRG 554 ==
LOC: ED 19:51 → 4A 04-08 04:25 → OBSVTOIN 04-08 11:54 → 4A 04-08 19:30
PROVIDERS: ADMIT Internal Medicine Geriatric Medicine; ATTEND Student in an Organized Health Care Education/Training Program
DX: M10.9 Gout, unspecified (principal); E87.1 Hypo-osmolality and hyponatremia; I10 Essential (primary) hypertension; F41.9 Anxiety disorder, unspecified; F10.20 Alcohol dependence, uncomplicated; G40.909 Epilepsy, unspecified, not intractable, without status epilepticus
CPT/HCPCS: 36415; 70450; 72040; 80048; 84295; 85025; G0378; J7060; Q0162; J1644; J1885; J1953; J2060; J2270; J7030

== ENCOUNTER 2021-04-11 18:40 | Emergency (ER) | payer SELFPAY ==
--- NOTE | 2021-04-11 22:00 | Emergency Department Report ---
ED General Adult HPI - General Chief complaint: Pain General Stated complaint: PAIN PUI?: No Time Seen by Provider: 04/11/21 21:51 Source: patient, EMS Mode of arrival: Stretcher Limitations: No Limitations - History of Present Illness Initial comments: Chief complaint: "The shelters were full." HPI: This is a 65-year-old male with history of alcohol dependence, seizure disorder, pancreatitis, anxiety disorder, homelessness and gout who presents to the emergency department. According to triage note, police officers encouraged him to go to a skilled nursing. He stated that the shelters are full. He denies any new physical or medical concerns. According to electronic medical record patient was admitted for gout flareup. He was discharged 2 days ago. Case management did provide consultation. Severity scale (0 -10): 5 Consistency: other (Homelessness) Improves with: none Worsens with: none Associated Symptoms: denies other symptoms - Related Data Previous Rx's Medication Instructions Recorded Last Taken Type carvediloL [Coreg] 6.25 mg PO BID #60 tablet 12/18/20 Unknown Rx Quetiapine Fumarate [SEROquel] 50 mg PO QHS 30 Days #30 tab 03/17/21 Unknown Rx Calcium Carbonate [Oscal 1250MG 1,250 mg PO BID #60 tablet 03/18/21 Unknown Rx TAB] Magnesium 200 mg PO DAILY #7 tablet 03/27/21 Unknown Rx Multivitamin Tab [Multiple Vitamin 1 each PO DAILY #30 tablet 03/27/21 Unknown Rx TAB (Theragran)] Aspirin EC [Halfprin EC] 81 mg PO QDAY #30 tablet 04/09/21 Unknown Rx Colchicine [Colcrys] 0.6 mg PO BID 3 Days #6 tablet 04/09/21 Unknown Rx Folic Acid [Folvite] 1 mg PO QDAY #30 tablet 04/09/21 Unknown Rx Losartan [Cozaar] 25 mg PO QDAY #30 tablet 04/09/21 Unknown Rx Thiamine [Vitamin B-1] 100 mg PO QDAY #30 tablet 04/09/21 Unknown Rx levETIRAcetam [Keppra TAB] 1,000 mg PO BID 30 Days #120 tablet 04/09/21 Unknown Rx predniSONE [Deltasone] 40 mg PO QDAY 6 Days #9 tablet 04/09/21 Unknown Rx Allergies Allergy/AdvReac Type Severity Reaction Status Date / Time olanzapine [From Zyprexa] Allergy Nausea Verified 03/12/21 19:20 ED Review of Systems ROS: Stated complaint: PAIN Other details as noted in HPI Comment: All other systems reviewed and negative Constitutional: denies: chills, fever, malaise Respiratory: denies: cough, shortness of breath Cardiovascular: denies: chest pain Gastrointestinal: denies: abdominal pain, nausea, vomiting ED Past Medical Hx - Past Medical History Previous Medical History?: Yes Hx Hypertension: Yes Hx Congestive Heart Failure: No Hx Diabetes: No Hx Seizures: Yes Hx Psychiatric Treatment: Yes (anxiety psychosis) Hx Asthma: Yes Hx COPD: No Additional medical history: Alcoholism. pancreatitis. legally blind - Surgical History Past Surgical History?: Yes Additional Surgical History: R knee surgery, left lung injury HIP SURGERY - Social History Smoking Status: Former Smoker - Medications Home Medications: Home Medications Medication Instructions Recorded Confirmed Last Taken Type carvediloL [Coreg] 6.25 mg PO BID #60 tablet 12/18/20 03/18/21 Unknown Rx Quetiapine Fumarate [SEROquel] 50 mg PO QHS 30 Days #30 tab 03/17/21 Unknown Rx Calcium Carbonate [Oscal 1250MG 1,250 mg PO BID #60 tablet 03/18/21 Unknown Rx TAB] Magnesium 200 mg PO DAILY #7 tablet 03/27/21 Unknown Rx Multivitamin Tab [Multiple Vitamin 1 each PO DAILY #30 tablet 03/27/21 Unknown Rx TAB (Theragran)] Aspirin EC [Halfprin EC] 81 mg PO QDAY #30 tablet 04/09/21 Unknown Rx Colchicine [Colcrys] 0.6 mg PO BID 3 Days #6 tablet 04/09/21 Unknown Rx Folic Acid [Folvite] 1 mg PO QDAY #30 tablet 04/09/21 Unknown Rx Losartan [Cozaar] 25 mg PO QDAY #30 tablet 04/09/21 Unknown Rx Thiamine [Vitamin B-1] 100 mg PO QDAY #30 tablet 04/09/21 Unknown Rx levETIRAcetam [Keppra TAB] 1,000 mg PO BID 30 Days #120 tablet 04/09/21 Unknown Rx predniSONE [Deltasone] 40 mg PO QDAY 6 Days #9 tablet 04/09/21 Unknown Rx ED Physical Exam - General Limitations: No Limitations General appearance: alert, in no apparent distress, other (Disheveled, no acute distress) - Head Head exam: Present: atraumatic, normocephalic - Eye Eye exam: Present: normal appearance - ENT ENT exam: Present: mucous membranes moist - Neck Neck exam: Present: normal inspection, full ROM - Respiratory Respiratory exam: Present: normal lung sounds bilaterally. Absent: respiratory distress, wheezes, rales, rhonchi - Cardiovascular Cardiovascular Exam: Present: regular rate, normal rhythm. Absent: systolic murmur, diastolic murmur, rubs, gallop - GI/Abdominal GI/Abdominal exam: Present: soft, normal bowel sounds. Absent: distended, tenderness, guarding, rebound - Rectal Rectal exam: Present: deferred - Extremities Exam Extremities exam: Present: normal inspection - Back Exam Back exam: Present: normal inspection - Neurological Exam Neurological exam: Present: alert, oriented X3 - Psychiatric Psychiatric exam: Present: depressed, flat affect. Absent: suicidal ideation - Skin Skin exam: Present: warm, dry, intact, normal color. Absent: rash ED Course Vital Signs 04/11/21 18:46 Temperature 98.0 F Pulse Rate 107 H Respiratory 18 Rate Blood Pressure 104/97 [Left] O2 Sat by Pulse 97 Oximetry ED Medical Decision Making - Medical Decision Making Homelessness: Poor social situation. Will allow patient to sit in waiting room. It appears the case management provided resources 2 days ago when admitted to the hospital. Patient does not require acute emergent care at this time. No evidence of medical emergency or medical condition which needs treatment evaluation. Discharged to self-care. Critical care attestation.: If time is entered above; I have spent that time in minutes in the direct care of this critically ill patient, excluding procedure time. ED Disposition Clinical Impression: Unsheltered homelessness Disposition: 01 HOME / SELF CARE / HOMELESS Is pt being admited?: No Does the pt Need Aspirin: No Condition: Stable
[2021-04-11 22:46] VITALS: BP 108/60
== END 2021-04-11 22:30 | disposition home or self-care (01) ==
LOC: ED 18:40
DX: R52 Pain, unspecified (principal); Z59.02 Unsheltered homelessness; I10 Essential (primary) hypertension; R56.9 Unspecified convulsions; J45.909 Unspecified asthma, uncomplicated; F41.9 Anxiety disorder, unspecified; Z79.899 Other long term (current) drug therapy; Z98.890 Other specified postprocedural states; Z91.09 Other allergy status, other than to drugs and biological substances; Z87.891 Personal history of nicotine dependence
CPT/HCPCS: 99283

== ENCOUNTER 2021-04-24 21:12 | Emergency (ER) | payer SELFPAY ==
[2021-04-24] MEDS ORDERED: HYDROcodone/ACETAMINOPHEN 5-325 MG TAB PO ONE (23:01)
[2021-04-24 23:30] LABS: Hematocrit 48.8 % (35.5-45.6); Hemoglobin 16.1 gm/dl (11.8-15.2); Mean Corpuscular HGB Conc 33 % (32-34); Mean Corpuscular Volume 108 fl (84-94); Platelet Count 199 K/mm3 (140-440); Red Blood Count 4.54 M/mm3 (3.65-5.03); Red Cell Distribution Width 17.5 % (13.2-15.2)
--- NOTE | 2021-04-24 23:31 | XRay Report ---
Right ankle, 3 views HISTORY: Pain COMPARISON: None FINDINGS: There is a 7 mm ossific density along the lateral process of the talus. This may reflect fracture, th ough this appears somewhat corticated and may be remote. Ultimately, this is age-indeterminate. Other oseguera, no acute fracture. Ankle mortise is symmetric. Talar dome is intact. Mild soft tissue swelling of the lateral ankle. IMPRESSION: Small age-indeterminate fracture of the lateral process of the talus. Recommend correlati on with focal point tenderness. Otherwise, no acute process of the right ankle. Signer Name: Abhishek Flynn MD Signed: 04/24/2021 11:27 PM Workstation Name: [id number]
[2021-04-24 23:52] LABS: Alanine Aminotransferase 27 units/L (7-56); Albumin 3.8 g/dL (3.9-5); Blood Urea Nitrogen 9 mg/dL (9-20); Calcium 9.2 mg/dL (8.4-10.2); Hemolysis Index 9
--- NOTE | 2021-04-24 23:55 | Cat Scan Report ---
CT head/brain wo con, CT cervical spine wo con INDICATION: seizure. TECHNIQUE: CT head and cervical spine without contrast. All CT scans at this location are performed u sing CT dose reduction for ALARA by means of automated exposure control. COMPARISON: 04/08/2021 FINDINGS: HEAD: BRAIN PARENCHYMA: No acute intracranial hemorrhage. No evidence of recent infarct. No mass effect or midline shift. White matter chronic small vessel ischemic changes. VENTRICULAR SYSTEM/EXTRA-AXIAL SPACES: Age-related cerebral atrophy. No extra-axial fluid collection. ORBITS: Normal as visualized. SKELETAL SYSTEM/SOFT TISSUES: Normal bones and soft tissues. PARANASAL SINUSES/MASTOID AIR CELLS: No significant abnormality. CERVICAL: Alignment: Normal. No acute subluxation. Geographic Bone Lesion: None present. Fracture: No acute fracture. Degenerative Changes: Severe disc space narrowing again seen at C3-C4, C5-C6, and C6-C7. No significa nt interval change from prior study. No worrisome central canal compromise. Epidural Hematoma: Not present. Prevertebral / Paraspinal Soft Tissues: Unremarkable. IMPRESSION: 1. No acute intracranial abnormality. 2. No acute abnormality of the cervical spine. Signer Name: Abhishek Flynn MD Signed: 04/24/2021 11:51 PM Workstation Name: [id number]
[2021-04-25 00:02] LABS: BUN/Creatinine Ratio 15
--- NOTE | 2021-04-25 00:26 | Emergency Department Report ---
ED Head Trauma HPI - General Chief complaint: Weakness Stated complaint: WEAKNESS Time Seen by Provider: 04/24/21 22:48 Source: EMS Mode of arrival: Stretcher Limitations: No Limitations - History of Present Illness Initial comments: 65-year-old white male with a past medical history of hypertension, seizure disorder, pancreatitis, and legally blind presents to the emergency department for evaluation of headache after he states that he had a seizure earlier today and hit his head on the pavement. He states that he takes Keppra and Dilantin for seizures, but has not taken either of them in the last couple of days because his prescription is at the [facility] which is where he was on his way to when he had a seizure. He also complains of neck pain and right ankle pain. He states that he hurt his right ankle about 1.5 weeks ago and has been having pain to the area since then. MD Complaint: head injury, head pain, fall -: Sudden Arrival Conditions: Negative: C-spine immobilization present, spinal board immobilization present Mechanism of Injury: other (States that he had a seizure, fell, and hit his head.) Location: frontal Loss of Consciousness: yes Previous Trauma to this Area: No Place: outdoors Radiation: neck Severity: moderate Severity scale (0 -10): 6 Quality: aching Consistency: constant Other Injuries: other (Right ankle) - Related Data Previous Rx's Medication Instructions Recorded Last Taken Type carvediloL [Coreg] 6.25 mg PO BID #60 tablet 12/18/20 Unknown Rx Quetiapine Fumarate [SEROquel] 50 mg PO QHS 30 Days #30 tab 03/17/21 Unknown Rx Calcium Carbonate [Oscal 1250MG 1,250 mg PO BID #60 tablet 03/18/21 Unknown Rx TAB] Magnesium 200 mg PO DAILY #7 tablet 03/27/21 Unknown Rx Multivitamin Tab [Multiple Vitamin 1 each PO DAILY #30 tablet 03/27/21 Unknown Rx TAB (Theragran)] Aspirin EC [Halfprin EC] 81 mg PO QDAY #30 tablet 04/09/21 Unknown Rx Colchicine [Colcrys] 0.6 mg PO BID 3 Days #6 tablet 04/09/21 Unknown Rx Folic Acid [Folvite] 1 mg PO QDAY #30 tablet 04/09/21 Unknown Rx Losartan [Cozaar] 25 mg PO QDAY #30 tablet 04/09/21 Unknown Rx Thiamine [Vitamin B-1] 100 mg PO QDAY #30 tablet 04/09/21 Unknown Rx levETIRAcetam [Keppra TAB] 1,000 mg PO BID 30 Days #120 tablet 04/09/21 Unknown Rx predniSONE [Deltasone] 40 mg PO QDAY 6 Days #9 tablet 04/09/21 Unknown Rx Acetaminophen/Codeine [Tylenol 1 tab PO Q6H PRN #21 tab 04/25/21 Unknown Rx /Codeine # 3 tab] Allergies/Adverse reactions: Allergies Allergy/AdvReac Type Severity Reaction Status Date / Time olanzapine [From Zyprexa] Allergy Nausea Verified 03/12/21 19:20 ED Review of Systems ROS: Stated complaint: WEAKNESS Other details as noted in HPI Comment: All other systems reviewed and negative Constitutional: denies: chills, diaphoresis, fever, malaise, weakness ENT: denies: ear pain, throat pain Respiratory: denies: cough, orthopnea, shortness of breath, SOB with exertion, SOB at rest, wheezing Cardiovascular: denies: chest pain, palpitations, dyspnea on exertion, orthopnea, edema, syncope, paroxysmal nocturnal dyspnea Endocrine: no symptoms reported Gastrointestinal: denies: abdominal pain, nausea, vomiting, diarrhea, constipation, hematemesis, melena, hematochezia Genitourinary: denies: urgency, dysuria, frequency, hematuria, testicular pain Musculoskeletal: joint swelling, arthralgia. denies: back pain Skin: denies: rash, lesions, change in color, change in hair/nails Neurological: headache. denies: weakness, numbness, paresthesias, confusion, abnormal gait, vertigo Psychiatric: denies: anxiety, depression Hematological/Lymphatic: denies: easy bleeding, easy bruising ED Past Medical Hx - Past Medical History Hx Hypertension: Yes Hx Congestive Heart Failure: No Hx Diabetes: No Hx Seizures: Yes Hx Psychiatric Treatment: Yes (anxiety psychosis) Hx Asthma: Yes Hx COPD: No Additional medical history: Alcoholism. pancreatitis. legally blind - Surgical History Additional Surgical History: R knee surgery, left lung injury HIP SURGERY - Social History Smoking Status: Former Smoker - Medications Home Medications: Home Medications Medication Instructions Recorded Confirmed Last Taken Type carvediloL [Coreg] 6.25 mg PO BID #60 tablet 12/18/20 03/18/21 Unknown Rx Quetiapine Fumarate [SEROquel] 50 mg PO QHS 30 Days #30 tab 03/17/21 Unknown Rx Calcium Carbonate [Oscal 1250MG 1,250 mg PO BID #60 tablet 03/18/21 Unknown Rx TAB] Magnesium 200 mg PO DAILY #7 tablet 03/27/21 Unknown Rx Multivitamin Tab [Multiple Vitamin 1 each PO DAILY #30 tablet 03/27/21 Unknown Rx TAB (Theragran)] Aspirin EC [Halfprin EC] 81 mg PO QDAY #30 tablet 04/09/21 Unknown Rx Colchicine [Colcrys] 0.6 mg PO BID 3 Days #6 tablet 04/09/21 Unknown Rx Folic Acid [Folvite] 1 mg PO QDAY #30 tablet 04/09/21 Unknown Rx Losartan [Cozaar] 25 mg PO QDAY #30 tablet 04/09/21 Unknown Rx Thiamine [Vitamin B-1] 100 mg PO QDAY #30 tablet 04/09/21 Unknown Rx levETIRAcetam [Keppra TAB] 1,000 mg PO BID 30 Days #120 tablet 04/09/21 Unknown Rx predniSONE [Deltasone] 40 mg PO QDAY 6 Days #9 tablet 04/09/21 Unknown Rx Acetaminophen/Codeine [Tylenol 1 tab PO Q6H PRN #21 tab 04/25/21 Unknown Rx /Codeine # 3 tab] ED Physical Exam - General Limitations: No Limitations General appearance: alert, in no apparent distress - Head Head exam: Absent: atraumatic - Expanded Head Exam Expanded Head exam: Present: abrasion. Absent: hematoma, racoon eyes, phelps's sign, general tenderness, tenderness of temporal artery, CSF rhinorrhea, CSF otorrhea 1 - Small abrasion noted to the area - Eye Eye exam: Present: normal appearance. Absent: conjunctival injection - ENT ENT exam: Present: normal exam - Neck Neck exam: Present: normal inspection, tenderness (Spinous process tenderness), full ROM. Absent: lymphadenopathy - Respiratory Respiratory exam: Present: normal lung sounds bilaterally. Absent: respiratory distress, wheezes, rales, rhonchi, stridor, chest wall tenderness, accessory muscle use - Cardiovascular Cardiovascular Exam: Present: regular rate, normal heart sounds - GI/Abdominal GI/Abdominal exam: Present: soft, normal bowel sounds. Absent: distended, tenderness, guarding, rebound, rigid - Expanded Lower Extremity Exam Right Knee exam: Present: normal inspection Lower Leg exam: Present: normal inspection. Absent: full ROM, tenderness Ankle exam: Present: tenderness, swelling, abrasion. Absent: ecchymosis, deformity, dislocation, erythema Foot/Toe exam: Present: normal inspection Neuro vascular tendon exam: Absent: no vascular compromise, pulse deficit, abnormal cap refill, motor deficit, sensory deficit, tendon deficit, extremity cold to touch, pallor 1 - Mostly healed abrasion noted to the area - Back Exam Back exam: Present: normal inspection. Absent: CVA tenderness (L), paraspinal tenderness, vertebral tenderness - Neurological Exam Neurological exam: Present: alert, oriented X3 - Expanded Neurological Exam Expanded Patient oriented to: Present: person, place, time Speech: Present: fluid speech Cranial nerves: EOM's Intact: Normal Best Eye Response ([place]): (4) open spontaneously Best Motor Response ([place]): (6) obeys commands Best Verbal Response ([place]): (5) oriented [place] Total: 15 - Psychiatric Psychiatric exam: Present: normal affect, normal mood, depressed - Skin Skin exam: Present: warm, dry, intact ED Course Vital Signs 04/24/21 21:20 Temperature 97.5 F L Pulse Rate 98 H Respiratory 18 Rate Blood Pressure 135/105 [Left] O2 Sat by Pulse 98 Oximetry - Lab Data Result diagrams: 04/24/21 23:12 04/24/21 23:12 Lab Results 04/24/21 04/24/21 Range/Units 23:12 23:12 WBC 6.3 (4.5-11.0) K/mm3 RBC 4.54 (3.65-5.03) M/mm3 Hgb 16.1 H (11.8-15.2) gm/dl Hct 48.8 H (35.5-45.6) % MCV 108 H (84-94) fl MCH 36 H (28-32) pg MCHC 33 (32-34) % RDW 17.5 H (13.2-15.2) % Plt Count 199 (140-440) K/mm3 Sodium 141 (137-145) mmol/L Potassium 4.6 (3.6-5.0) mmol/L Chloride 102.8 (98-107) mmol/L Carbon Dioxide 28 (22-30) mmol/L Anion Gap 15 mmol/L BUN 9 (9-20) mg/dL Creatinine 0.6 L (0.8-1.3) mg/dL Estimated GFR > 60 ml/min BUN/Creatinine Ratio 15 % Glucose 105 H (75-100) mg/dL Calcium 9.2 (8.4-10.2) mg/dL Total Bilirubin 1.10 (0.1-1.2) mg/dL AST 40 (5-40) units/L ALT 27 (7-56) units/L Alkaline Phosphatase 138 H (35-129) units/L Total Protein 6.7 (6.3-8.2) g/dL Albumin 3.8 L (3.9-5) g/dL Albumin/Globulin Ratio 1.3 % - Radiology Data Radiology results: report reviewed CT head and cervical spine IMPRESSION: 1. No acute intracranial abnormality. 2. No acute abnormality of the cervical spine. Right ankle x-ray IMPRESSION: Small age-indeterminate fracture of the lateral process of the talus. Recommend correlation with focal point tenderness. Otherwise, no acute process of the right ankle. - Medical Decision Making 65-year-old white male with a past medical history of hypertension, seizure disorder, pancreatitis, and legally blind presents to the emergency department for evaluation of headache after he states that he had a seizure earlier today and hit his head on the pavement. He states that he takes Keppra and Dilantin for seizures, but has not taken either of them in the last couple of days because his prescription is at the [facility] which is where he was on his way to when he had a seizure. He also complains of neck pain and right ankle pain. He states that he hurt his right ankle about 1.5 weeks ago and has been having pain to the area since then. CT of the head and cervical spine within normal limits. X-ray of right ankle noted to have age-indeterminate possible fracture of talus. Patient will be placed in ankle stirrup splint and advised to follow-up with orthopedics. Patie nt complained of generalized weakness, so he had CMP and CBC drawn, and both were within normal limits. He was he was advised to start back taking his Keppra and Dilantin for seizures. He was advised to follow-up with a neurologist for management. He was advised to follow-up with orthopedics for management of talus fracture. He was advised to take medications as prescribed and follow-up as advised or in the emergency department for worsening symptoms or no improvement. Plan of care was discussed with patient he verbalized understanding of and agreement with. No acute distress noted headache resolved patient okayed to be discharged to follow-up with primary care providers. Critical care attestation.: If time is entered above; I have spent that time in minutes in the direct care of this critically ill patient, excluding procedure time. ED Disposition Clinical Impression: Weakness, Seizure Headache Qualifiers: Headache type: post-traumatic Headache chronicity pattern: acute headache Intractability: not intractable Qualified Code(s): G44.319 - Acute post- traumatic headache, not intractable Head injury Qualifiers: Encounter type: initial encounter Qualified Code(s): S09.90XA - Unspecified injury of head, initial encounter Right ankle pain Qualifiers: Chronicity: unspecified Qualified Code(s): M25.571 - Pain in right ankle and j oints of right foot Fracture, talus closed Qualifiers: Talus location: unspecified portion of talus Fracture alignment: nondisplaced Laterality: right Fracture healing: with routine healing Disposition: 01 HOME / SELF CARE / HOMELESS Is pt being admited?: No Does the pt Need Aspirin: No Condition: Stable Instructions: Head Injury, Adult, Epilepsy, [id number], Cast or Splint Care, Adult, [id number], Weakness, [id number], Ankle Fracture, General Headache Without Cause, [id number], Seizure, Adult, [id number] Additional Instructions: Take medications as prescribed. Follow-up with orthopedics. Follow-up with neurology. Return to the ER for worsening symptoms or no improvement. Prescriptions: Acetaminophen/Codeine [Tylenol /Codeine # 3 tab] 1 tab PO Q6H PRN #21 tab PRN Reason: Pain , Severe (7-10) Referrals: PRIMARY CARE, [Primary Care Provider] - 3-5 Days FELICITA BONE MD [Staff Physician] - 3-5 Days HUY ELIZALDE MD [Referring] - 3-5 Days Time of Disposition: 00:30
[2021-04-25 10:03] VITALS: BP 142/67
== END 2021-04-25 10:00 | disposition home or self-care (01) ==
LOC: ED 21:12
DX: S92.101A Unspecified fracture of right talus, initial encounter for closed fracture (principal); S09.90XA Unspecified injury of head, initial encounter; G40.909 Epilepsy, unspecified, not intractable, without status epilepticus; R51.9 Headache, unspecified; R53.1 Weakness; Z87.891 Personal history of nicotine dependence; I10 Essential (primary) hypertension; M25.571 Pain in right ankle and joints of right foot; X58.XXXA Exposure to other specified factors, initial encounter; Y93.89 Activity, other specified; Y92.89 Other specified places as the place of occurrence of the external cause; Y99.8 Other external cause status
CPT/HCPCS: 36415; 70450; 72125; 80053; 85027; 99284

== ENCOUNTER 2021-05-19 20:56 | Emergency (ER) | payer MEDICARE ==
[2021-05-19 21:00] VITALS: BP 147/87
[2021-05-20] MEDS ORDERED: ACETAMINOPHEN 325 MG TAB PO ONE (07:22)
--- NOTE | 2021-05-20 07:22 | Emergency Department Report ---
ED Fall HPI - General Chief Complaint: Weakness Stated Complaint: WEAKNESS Time Seen by Provider: 05/20/21 07:21 Source: patient, EMS Mode of arrival: Ambulatory - History of Present Illness Initial Comments: 65-year-old male with a past medical history of alcohol abuse, seizure disorder, psychiatric disorder who is currently homeless presents to the ER today with complaints of right ankle injury and posterior neck pain. Patient states that he is "legally blind". He reports a ground-level fall last night. He states that when he stepped down off a curb, he twisted his left ankle and fell. He states that he struck the back of his head. He reports no LOC. He states since then he has been having pain to his neck, and his right ankle. Patient states that he is concerned that he may have sprained his ankle but he did have a fracture to his ankle a few years ago wanted to make sure is not broken. Patient denies alcohol use last night. He reports no other symptoms at this time. MD Complaint: fall, other (Neck pain and right ankle pain ) -: Last night - Related Data Previous Rx's Medication Instructions Recorded Last Taken Type carvediloL [Coreg] 6.25 mg PO BID #60 tablet 12/18/20 Unknown Rx Quetiapine Fumarate [SEROquel] 50 mg PO QHS 30 Days #30 tab 03/17/21 Unknown Rx Calcium Carbonate [Oscal 1250MG 1,250 mg PO BID #60 tablet 03/18/21 Unknown Rx TAB] Magnesium 200 mg PO DAILY #7 tablet 03/27/21 Unknown Rx Multivitamin Tab [Multiple Vitamin 1 each PO DAILY #30 tablet 03/27/21 Unknown Rx TAB (Theragran)] Aspirin EC [Halfprin EC] 81 mg PO QDAY #30 tablet 04/09/21 Unknown Rx Colchicine [Colcrys] 0.6 mg PO BID 3 Days #6 tablet 04/09/21 Unknown Rx Folic Acid [Folvite] 1 mg PO QDAY #30 tablet 04/09/21 Unknown Rx Losartan [Cozaar] 25 mg PO QDAY #30 tablet 04/09/21 Unknown Rx Thiamine [Vitamin B-1] 100 mg PO QDAY #30 tablet 04/09/21 Unknown Rx levETIRAcetam [Keppra TAB] 1,000 mg PO BID 30 Days #120 tablet 04/09/21 Unknown Rx predniSONE [Deltasone] 40 mg PO QDAY 6 Days #9 tablet 04/09/21 Unknown Rx Acetaminophen/Codeine [Tylenol 1 tab PO Q6H PRN #21 tab 04/25/21 Unknown Rx /Codeine # 3 tab] Acetaminophen [Acetaminophen 8 650 mg PO Q8H #30 tab 05/20/21 Unknown Rx Hour] cephALEXin [Keflex] 500 mg PO Q8HR #21 cap 05/20/21 Unknown Rx Allergies Allergy/AdvReac Type Severity Reaction Status Date / Time olanzapine [From Zyprexa] Allergy Nausea Verified 03/12/21 19:20 ED Review of Systems ROS: Stated complaint: WEAKNESS Other details as noted in HPI Comment: All other systems reviewed and negative Constitutional: denies: chills, fever Eyes: denies: eye pain, eye discharge, vision change ENT: denies: ear pain, throat pain Respiratory: denies: cough, shortness of breath, SOB with exertion, SOB at rest, wheezing Cardiovascular: denies: chest pain, palpitations Gastrointestinal: denies: abdominal pain, nausea, vomiting, diarrhea, constipation, hematemesis, hematochezia Genitourinary: denies: urgency, dysuria, frequency, hematuria, discharge, testicular pain, testicular mass Musculoskeletal: arthralgia, other (Neck pain) Skin: denies: rash, lesions Neurological: abnormal gait. denies: headache, weakness, numbness, paresthesias, confusion Psychiatric: denies: anxiety, depression, auditory hallucinations, visual cordon ucinations, homicidal thoughts, suicidal thoughts Hematological/Lymphatic: denies: easy bleeding, easy bruising, swollen glands ED Past Medical Hx - Past Medical History Previous Medical History?: Yes Hx Hypertension: Yes Hx Congestive Heart Failure: No Hx Diabetes: No Hx Seizures: Yes Hx Psychiatric Treatment: Yes (anxiety psychosis) Hx Asthma: Yes Hx COPD: No Additional medical history: Alcoholism. pancreatitis. legally blind - Surgical History Past Surgical History?: Yes Additional Surgical History: R knee surgery, left lung injury HIP SURGERY - Social History Smoking Status: Former Smoker - Medications Home Medications: Home Medications Medication Instructions Recorded Confirmed Last Taken Type carvediloL [Coreg] 6.25 mg PO BID #60 tablet 12/18/20 03/18/21 Unknown Rx Quetiapine Fumarate [SEROquel] 50 mg PO QHS 30 Days #30 tab 03/17/21 Unknown Rx Calcium Carbonate [Oscal 1250MG 1,250 mg PO BID #60 tablet 03/18/21 Unknown Rx TAB] Magnesium 200 mg PO DAILY #7 tablet 03/27/21 Unknown Rx Multivitamin Tab [Multiple Vitamin 1 each PO DAILY #30 tablet 03/27/21 Unknown Rx TAB (Theragran)] Aspirin EC [Halfprin EC] 81 mg PO QDAY #30 tablet 04/09/21 Unknown Rx Colchicine [Colcrys] 0.6 mg PO BID 3 Days #6 tablet 04/09/21 Unknown Rx Folic Acid [Folvite] 1 mg PO QDAY #30 tablet 04/09/21 Unknown Rx Losartan [Cozaar] 25 mg PO QDAY #30 tablet 04/09/21 Unknown Rx Thiamine [Vitamin B-1] 100 mg PO QDAY #30 tablet 04/09/21 Unknown Rx levETIRAcetam [Keppra TAB] 1,000 mg PO BID 30 Days #120 tablet 04/09/21 Unknown Rx predniSONE [Deltasone] 40 mg PO QDAY 6 Days #9 tablet 04/09/21 Unknown Rx Acetaminophen/Codeine [Tylenol 1 tab PO Q6H PRN #21 tab 04/25/21 Unknown Rx /Codeine # 3 tab] Acetaminophen [Acetaminophen 8 650 mg PO Q8H #30 tab 05/20/21 Unknown Rx Hour] cephALEXin [Keflex] 500 mg PO Q8HR #21 cap 05/20/21 Unknown Rx ED Physical Exam - General Limitations: No Limitations General appearance: alert, appears intoxicated (Appears intoxicated but he is awake alert and oriented x3.) - Head Head exam: Present: atraumatic, normocephalic, normal inspection - Eye Eye exam: Present: normal appearance, PERRL, EOMI Pupils: Present: normal accommodation - Neck Neck exam: Present: normal inspection, tenderness (Diffusely paraspinal and midline posterior neck), full ROM (He has full range of motion of his neck but it is painful). Absent: meningismus, lymphadenopathy, thyromegaly - Respiratory Respiratory exam: Present: normal lung sounds bilaterally. Absent: respiratory distress, wheezes, rales, rhonchi, stridor - Cardiovascular Cardiovascular Exam: Present: regular rate, normal rhythm, normal heart sounds - Extremities Exam Extremities exam: Present: full ROM (Range of motion of the right ankle is painful but otherwise normal), joint swelling (Mild swelling mainly to the lateral aspect of the right ankle.), other (Moderate tenderness to palpation to the lateral aspect of the right ankle. Patient has an old wound with some scabbing noted to the lateral aspect of her ankles from a previous fall. No apparent signs of infection.) - Neurological Exam Neurological exam: Present: alert, oriented X3, CN II-XII intact, normal gait - Psychiatric Psychiatric exam: Present: normal affect, normal mood - Skin Skin exam: Present: intact ED Course Vital Signs 05/19/21 05/20/21 20:59 08:21 Temperature 98.1 F Pulse Rate 102 H Respiratory 18 16 Rate Blood Pressure 147/87 [Right] O2 Sat by Pulse 99 Oximetry ED Medical Decision Making - Radiology Data Radiology results: report reviewed Patient: ANDREW RASHID MR#: [id number] : 1955 Acct:[id number] Age/Sex: 65 / M ADM Date: 05/19/21 Loc: ED Attending Dr: Ordering Physician: RADHA ELIAS Date of Service: 05/20/21 Procedure(s): XR ankle 3+V RT Accession Number(s): [id number] cc: RADHA ELIAS Fluoro Time In Minutes: RIGHT ANKLE 3 VIEWS INDICATION: Fall/injury. COMPARISON: 04/24/2021 IMPRESSION: There is diffuse soft tissue swelling. Mild osteopenia is suspected. Previously described irregularity of the lateral process of the talus is again noted and unchanged. It is unclear if this is related to previous trauma or degenerative changes. No acute fracture is appreciated. No advanced joint pathology. Signer Name: Francisco Rivers Jr, MD Signed: 05/20/2021 8:25 AM Workstation Name: [id number] Transcribed By: TTR Dictated By: FRANCISCO RIVERS JR, MD Electronically Authenticated By: FRANCISCO RIVERS JR, MD Signed Date/Time: 05/20/21824 DD/ 2 TD/TT: Patient: ANDREW RASHID MR#: [id number] : 1955 Acct:[id number] Age/Sex: 65 / M ADM Date: 05/19/21 Loc: ED Attending Dr: Ordering Physician: RADHA ELIAS Date of Service: 05/20/21 Procedure(s): CT cervical spine wo con Accession Number(s): [id number] cc: RADHA ELIAS CT CERVICAL SPINE: 05/20/2021 INDICATION / CLINICAL INFORMATION: Fall/neck pain. COMPARISON: CT cervical spine 03/27/2021 FINDINGS: CT images of the cervical spine were obtained. Images are evaluated in the axial, coronal, and sagittal planes. There is no evidence of acute abnormality. Degenerative disc space narrowing is present throughout the cervical spine, unchanged when compared to the prior exam. This includes near complete fusion at the C5-6 and C6-7 l evels, with significant disc space narrowing also present at C3-4. Subtle right convex scoliosis is also unchanged. LEVEL BY LEVEL ANALYSIS: . CRANIOCERVICAL JUNCTION: Unremarkable. PARASPINAL STRUCTURES: Unremarkable IMPRESSION: No acute abnormality. No change when compared to 03/27/2021. All CT scans at this location are performed using dose reduction to ALARA by means of automated exposure control. Signer Name: Mark Stockton MD Signed: 05/20/2021 8:01 AM Workstation Name: [id number] Transcribed By: AO Dictated By: Mark Stockton MD Electronically Authenticated By: Mark Stockton MD Signed Date/Time: 05/20/21800 DD/ 0758 TD/TT: Patient: ANDREW RASHID MR#: [id number] : 1955 Acct:[id number] Age/Sex: 65 / M ADM Date: 05/19/21 Loc: ED Attending Dr: Ordering Physician: RADHA ELIAS Date of Service: 05/20/21 Procedure(s): CT head/brain wo con Accession Number(s): [id number] cc: RADHA ELIAS CT BRAIN: 05/20/2021 INDICATION / CLINICAL INFORMATION: Fall/head injury. COMPARISON: CT brain 04/24/2021 FINDINGS: BRAIN/INTRACRANIAL STRUCTURES: Unenhanced CT images of the brain demonstrate no evidence of acute abnormality. Ventricles and sulci are prominent in size, consistent with age-related atrophic change. There is no evidence of acute ischemic injury, hemorrhage, or mass. There are no abnormal extra- axial fluid collections. EXTRACRANIAL STRUCTURES: Unremarkable. IMPRESSION: No acute abnormality. No significant change when compared to 04/24/2021. All CT scans at this location are performed using dose reduction to ALARA by means of automated exposure control. Signer Name: Mark Stockton MD Signed: 05/20/2021 7:58 AM Workstation Name: [id number] Transcribed By: AO Dictated By: Mark Stockton MD Electronically Authenticated By: Mark Stockton MD Signed Date/Time: 05/20/21 0758 - Medical Decision Making Patient is currently awake alert and oriented x3 and currently mentally stable. CT head and neck showed no acute abnormality just chronic generative changes on CT cervical spine. X-ray of the right ankle shows soft tissue swelling but no dislocation or fracture. Patient does have a wound to the lateral aspect of his right ankle which is from a previous fall it has started to crust over, no obvious signs of infection but will start patient on oral antibiotics as a precaution. Imaging results discussed with patient. Wound care discussed with patient. He will be given medication for Tylenol for pain. Patient informed to follow-up with his primary care doctor. Patient expressed understanding and agree with plan. Patient stable at time of discharge. Critical care attestation.: If time is entered above; I have spent that time in minutes in the direct care of this critically ill patient, excluding procedure time. ED Disposition Clinical Impression: Ankle sprain, Head injury, closed, without LOC, Cervical strain, DDD (degenerative disc disease), cervical, Wound of ankle Disposition: 01 HOME / SELF CARE / HOMELESS Is pt being admited?: No Does the pt Need Aspirin: No Condition: Stable Instructions: Ankle Sprain, [id number], Wound Care, Adult, Cervical Sprain, Head Injury, Adult, [id number] Additional Instructions: Take the tylenol as prescribed for pain. Take the keflex which is antibiotic as prescribed for to cover for possible wound infection but main thing is keeping it clean daily and applying a thin layer of Neosporin. Elevate your leg and apply ice to help with swelling. It is very important that you try to avoid drinking alcohol. A list of substance abuse facilities will be provided to you on discharge instructions. Follow-up closely with your primary care doctor. Return to the ER if your symptoms changes or worsens in any way. Prescriptions: Acetaminophen [Acetaminophen 8 Hour] 650 mg PO Q8H #30 tab cephALEXin [Keflex] 500 mg PO Q8HR #21 cap Referrals: TANA DEL VALLE MD [Primary Care Provider] - 3-5 Days Time of Disposition: 08:43
--- NOTE | 2021-05-20 08:02 | Cat Scan Report ---
CT BRAIN: 05/20/2021 INDICATION / CLINICAL INFORMATION: Fall/head injury. COMPARISON: CT brain 04/24/2021 FINDINGS: BRAIN/INTRACRANIAL STRUCTURES: Unenhanced CT images of the brain demonstrate no evidence of acute abn ormality. Ventricles and sulci are prominent in size, consistent with age-related atrophic change. There is no evidence of acute ischemic injury, hemorrhage, or mass. There are no abnormal extra-axial fluid collections. EXTRACRANIAL STRUCTURES: Unremarkable. IMPRESSION: No acute abnormality. No significant change when compared to 04/24/2021. All CT scans at this location are performed using dose reduction to ALARA by means of automated expos ure control. Signer Name: Mark Stockton MD Signed: 05/20/2021 7:58 AM Workstation Name: [id number]
--- NOTE | 2021-05-20 08:06 | Cat Scan Report ---
CT CERVICAL SPINE: 05/20/2021 INDICATION / CLINICAL INFORMATION: Fall/neck pain. COMPARISON: CT cervical spine 03/27/2021 FINDINGS: CT images of the cervical spine were obtained. Images are evaluated in the axial, coronal, and sagitt al planes. There is no evidence of acute abnormality. Degenerative disc space narrowing is present throughout the cervical spine, unchanged when compared t o the prior exam. This includes near complete fusion at the C5-6 and C6-7 levels, with significant di sc space narrowing also present at C3-4. Subtle right convex scoliosis is also unchanged. LEVEL BY LEVEL ANALYSIS: . CRANIOCERVICAL JUNCTION: Unremarkable. PARASPINAL STRUCTURES: Unremarkable IMPRESSION: No acute abnormality. No change when compared to 03/27/2021. All CT scans at this location are performed using dose reduction to ALARA by means of automated expos ure control. Signer Name: Mark Stockton MD Signed: 05/20/2021 8:01 AM Workstation Name: [id number]
--- NOTE | 2021-05-20 08:29 | XRay Report ---
RIGHT ANKLE 3 VIEWS INDICATION: Fall/injury. COMPARISON: 04/24/2021 IMPRESSION: There is diffuse soft tissue swelling. Mild osteopenia is suspected. Previously describe d irregularity of the lateral process of the talus is again noted and unchanged. It is unclear if thi s is related to previous trauma or degenerative changes. No acute fracture is appreciated. No advanc ed joint pathology. Signer Name: Francisco Rivers Jr, MD Signed: 05/20/2021 8:25 AM Workstation Name: [id number]
[2021-05-20] MEDS ORDERED: NEOMY 3.5 MG/BACIT 400 UNITS/POLY B 5000 UNITS/GM OINT PACKET TP ONE (08:43)
== END 2021-05-20 09:00 | disposition home or self-care (01) ==
LOC: ED 20:56
DX: S93.401A Sprain of unspecified ligament of right ankle, initial encounter (principal); S13.4XXA Sprain of ligaments of cervical spine, initial encounter; S09.90XA Unspecified injury of head, initial encounter; M51.36 Other intervertebral disc degeneration, lumbar region; X58.XXXA Exposure to other specified factors, initial encounter; Y93.89 Activity, other specified; Y92.89 Other specified places as the place of occurrence of the external cause; Y99.8 Other external cause status
CPT/HCPCS: 70450; 72125; 99284

== ENCOUNTER 2021-06-10 18:15 | Emergency (ER) | payer MEDICARE ==
--- NOTE | 2021-06-11 03:53 | Emergency Department Report ---
HPI - General Chief Complaint: Medical Clearance Time Seen by Provider: 06/11/21 03:44 - HPI HPI: The patient is here because he fell the other day and had been having right anterior chest wall pain since then. He denies shortness of breath cough nausea vomiting fever chills diaphoresis or any other associated symptoms. He is homeless and has eyesight difficulties. Breathing makes the pain worse and movement as well. Nothing makes the pain better. He has taken no medication for this. ED Past Medical Hx - Past Medical History Previous Medical History?: Yes Hx Hypertension: Yes Hx Congestive Heart Failure: No Hx Diabetes: No Hx Seizures: Yes Hx Psychiatric Treatment: Yes (anxiety psychosis) Hx Asthma: Yes Hx COPD: No Additional medical history: Alcoholism. pancreatitis. legally blind - Surgical History Past Surgical History?: No Additional Surgical History: R knee surgery, left lung injury HIP SURGERY - Family History Family history: no significant - Social History Smoking Status: Current Every Day Smoker Substance Use Type: Alcohol - Medications Home Medications: Home Medications Medication Instructions Recorded Confirmed Last Taken Type carvediloL [Coreg] 6.25 mg PO BID #60 tablet 12/18/20 03/18/21 Unknown Rx Quetiapine Fumarate [SEROquel] 50 mg PO QHS 30 Days #30 tab 03/17/21 Unknown Rx Calcium Carbonate [Oscal 1250MG 1,250 mg PO BID #60 tablet 03/18/21 Unknown Rx TAB] Magnesium 200 mg PO DAILY #7 tablet 03/27/21 Unknown Rx Multivitamin Tab [Multiple Vitamin 1 each PO DAILY #30 tablet 03/27/21 Unknown Rx TAB (Theragran)] Aspirin EC [Halfprin EC] 81 mg PO QDAY #30 tablet 04/09/21 Unknown Rx Colchicine [Colcrys] 0.6 mg PO BID 3 Days #6 tablet 04/09/21 Unknown Rx Folic Acid [Folvite] 1 mg PO QDAY #30 tablet 04/09/21 Unknown Rx Losartan [Cozaar] 25 mg PO QDAY #30 tablet 04/09/21 Unknown Rx Thiamine [Vitamin B-1] 100 mg PO QDAY #30 tablet 04/09/21 Unknown Rx levETIRAcetam [Keppra TAB] 1,000 mg PO BID 30 Days #120 tablet 04/09/21 Unknown Rx predniSONE [Deltasone] 40 mg PO QDAY 6 Days #9 tablet 04/09/21 Unknown Rx Acetaminophen/Codeine [Tylenol 1 tab PO Q6H PRN #21 tab 04/25/21 Unknown Rx /Codeine # 3 tab] Acetaminophen [Acetaminophen 8 650 mg PO Q8H #30 tab 05/20/21 Unknown Rx Hour] cephALEXin [Keflex] 500 mg PO Q8HR #21 cap 05/20/21 Unknown Rx Ibuprofen [Motrin] 800 mg PO Q8HR PRN #30 tablet 06/11/21 Unknown Rx ED Review of Systems ROS: Stated complaint: ride Other details as noted in HPI Comment: All other systems reviewed and negative Physical Exam - Physical Exam Vital Signs: Vital Signs 06/10/21 18:17 Temperature 98.5 F Pulse Rate 88 Respiratory 14 Rate Blood Pressure 155/80 [Left] O2 Sat by Pulse 99 Oximetry Physical Exam: Physical Exam Constitutional: Extremely poor hygiene General: No acute distress. Appearance: No diaphoresis. HENT: Head: Normocephalic. Eyes: Pupils: Pupils are equal, round, and reactive to light. Neck: Musculoskeletal: Normal range of motion. Cardiovascular: Rate and Rhythm: Normal rate and regular rhythm. Pulses: Intact distal pulses. Heart sounds: Normal heart sounds. No murmur. Pulmonary: Effort: No respiratory distress. Breath sounds: No wheezing or rales. Chest: Chest wall: Mild tenderness to palpation on the right anterolateral rib cage with no crepitance nor subcutaneous emphysema. Abdominal: General: There is no distension. Palpations: There is no mass. Tenderness: There is no abdominal tenderness. There is no guarding or rebound. Musculoskeletal: Normal range of motion. Skin: General: Skin is warm and dry. Neurological: Mental Status: Alert and oriented to person, place, and time. Psychiatric: Mood and Affect: Mood and affect normal. Cognition and Memory: Memory normal. Judgment: Judgment normal. ED Course Vital Signs 06/10/21 18:17 Temperature 98.5 F Pulse Rate 88 Respiratory 14 Rate Blood Pressure 155/80 [Left] O2 Sat by Pulse 99 Oximetry - Reevaluation(s) Reevaluation #1: 06/11/21 04:45 X-rays of the right ribs did not show any acute fractures on the x-ray of the chest within normal limits. I will put the patient on nonsteroidal anti- inflammatory agent he will follow up with a physician up have provided. Critical care attestation.: If time is entered above; I have spent that time in minutes in the direct care of this critically ill patient, excluding procedure time. ED Disposition Clinical Impression: Chest wall contusion, Falls Disposition: 01 HOME / SELF CARE / HOMELESS Is pt being admited?: No Does the pt Need Aspirin: No Condition: Stable Instructions: Rib Contusion, Blunt Chest Trauma Prescriptions: Ibuprofen [Motrin] 800 mg PO Q8HR PRN #30 tablet PRN Reason: Pain , Severe (7-10) Referrals: TANA DEL VALLE MD [Primary Care Provider] - 3-5 Days Print Language: EAST TIMOR[place]
--- NOTE | 2021-06-11 04:30 | XRay Report ---
RIGHT RIBS 10 total VIEWS INDICATION / CLINICAL INFORMATION: Trauma. COMPARISON: None available. FINDINGS: RIBS: No acute, displaced fracture or other acute abnormality. LUNGS: No acute findings. No pneumothorax. Signer Name: Bharat Nickerson MD Signed: 06/11/2021 4:26 AM Workstation Name: [id number]
[2021-06-11] MEDS ORDERED: IBUPROFEN 800 MG TAB PO ONE (05:13)
[2021-06-11 05:29] VITALS: BP 146/78
== END 2021-06-11 05:28 | disposition home or self-care (01) ==
LOC: ED 18:15
DX: S20.219A Contusion of unspecified front wall of thorax, initial encounter (principal); I10 Essential (primary) hypertension; R56.9 Unspecified convulsions; J45.909 Unspecified asthma, uncomplicated; F41.9 Anxiety disorder, unspecified; Z98.890 Other specified postprocedural states; F17.200 Nicotine dependence, unspecified, uncomplicated; W19.XXXA Unspecified fall, initial encounter; Y93.89 Activity, other specified; Y92.89 Other specified places as the place of occurrence of the external cause; Y99.8 Other external cause status
CPT/HCPCS: 99283

== ENCOUNTER 2021-06-12 20:34 | Emergency (ER) | payer MEDICARE ==
[2021-06-13] MEDS ORDERED: KETOROLAC 10 MG TAB PO ONE (07:31)
[2021-06-13] MEDS ORDERED: levETIRAcetam 500 MG TAB PO ONE (07:32)
[2021-06-13] MEDS ORDERED: HYDROcodone/ACETAMINOPHEN 5-325 MG TAB PO ONE (07:32)
--- NOTE | 2021-06-13 07:37 | Emergency Department Report ---
ED Fall HPI - General Chief Complaint: Headache Stated Complaint: HEADACHE Time Seen by Provider: 06/13/21 07:29 Source: patient, EMS Mode of arrival: Stretcher - History of Present Illness Initial Comments: 66-year-old male with past medical history of seizures presents to the emergency department for evaluation of right rib pain. He states that he has not taken his seizure medicines in a few days, and he thinks that he had a seizure yesterday and fell landing on his right rib area. He presents with pain with movement and breathing to right rib area. MD Complaint: fall -: Sudden, days(s) (1) When Fall Occurred: # days [employer]IATE (1) Place Fall Occurred: street Loss of Consciousness: none Prolonged Down Time?: no Location: chest (Right rib area) Severity scale (0 -10): 9 Quality: aching Context: seizure Associated Symptoms: denies - Related Data Previous Rx's Medication Instructions Recorded Last Taken Type carvediloL [Coreg] 6.25 mg PO BID #60 tablet 12/18/20 Unknown Rx Quetiapine Fumarate [SEROquel] 50 mg PO QHS 30 Days #30 tab 03/17/21 Unknown Rx Calcium Carbonate [Oscal 1250MG 1,250 mg PO BID #60 tablet 03/18/21 Unknown Rx TAB] Magnesium 200 mg PO DAILY #7 tablet 03/27/21 Unknown Rx Multivitamin Tab [Multiple Vitamin 1 each PO DAILY #30 tablet 03/27/21 Unknown Rx TAB (Theragran)] Aspirin EC [Halfprin EC] 81 mg PO QDAY #30 tablet 04/09/21 Unknown Rx Colchicine [Colcrys] 0.6 mg PO BID 3 Days #6 tablet 04/09/21 Unknown Rx Folic Acid [Folvite] 1 mg PO QDAY #30 tablet 04/09/21 Unknown Rx Losartan [Cozaar] 25 mg PO QDAY #30 tablet 04/09/21 Unknown Rx Thiamine [Vitamin B-1] 100 mg PO QDAY #30 tablet 04/09/21 Unknown Rx levETIRAcetam [Keppra TAB] 1,000 mg PO BID 30 Days #120 tablet 04/09/21 Unknown Rx predniSONE [Deltasone] 40 mg PO QDAY 6 Days #9 tablet 04/09/21 Unknown Rx Acetaminophen/Codeine [Tylenol 1 tab PO Q6H PRN #21 tab 04/25/21 Unknown Rx /Codeine # 3 tab] Acetaminophen [Acetaminophen 8 650 mg PO Q8H #30 tab 05/20/21 Unknown Rx Hour] cephALEXin [Keflex] 500 mg PO Q8HR #21 cap 05/20/21 Unknown Rx Ibuprofen [Motrin] 800 mg PO Q8HR PRN #30 tablet 06/11/21 Unknown Rx Cyclobenzaprine [Flexeril] 10 mg PO TID PRN #21 tab 06/13/21 Unknown Rx Naproxen [Naprosyn] 500 mg PO BID #14 tab 06/13/21 Unknown Rx Allergies Allergy/AdvReac Type Severity Reaction Status Date / Time olanzapine [From Zyprexa] Allergy Nausea Verified 03/12/21 19:20 ED Review of Systems ROS: Stated complaint: HEADACHE Other details as noted in HPI Comment: All other systems reviewed and negative Constitutional: denies: chills, fever Respiratory: denies: cough, shortness of breath, SOB with exertion, SOB at rest Cardiovascular: denies: chest pain, palpitations, dyspnea on exertion, orthopnea, edema, syncope, paroxysmal nocturnal dyspnea Gastrointestinal: abdominal pain. denies: nausea, vomiting, diarrhea, hematemesis, melena, hematochezia Genitourinary: denies: urgency, dysuria Musculoskeletal: denies: back pain Skin: denies: rash, lesions Neurological: denies: headache, weakness, numbness, paresthesias, confusion, abnormal gait, vertigo ED Past Medical Hx - Past Medical History Previous Medical History?: Yes Hx Hypertension: Yes Hx Congestive Heart Failure: No Hx Diabetes: No Hx Seizures: Yes Hx Psychiatric Treatment: Yes (anxiety psychosis) Hx Asthma: Yes Hx COPD: No Additional medical history: Alcoholism. pancreatitis. legally blind - Surgical History Past Surgical History?: Yes Additional Surgical History: R knee surgery, left lung injury HIP SURGERY - Social History Smoking Status: Current Every Day Smoker Substance Use Type: Alcohol - Medications Home Medications: Home Medications Medication Instructions Recorded Confirmed Last Taken Type carvediloL [Coreg] 6.25 mg PO BID #60 tablet 12/18/20 03/18/21 Unknown Rx Quetiapine Fumarate [SEROquel] 50 mg PO QHS 30 Days #30 tab 03/17/21 Unknown Rx Calcium Carbonate [Oscal 1250MG 1,250 mg PO BID #60 tablet 03/18/21 Unknown Rx TAB] Magnesium 200 mg PO DAILY #7 tablet 03/27/21 Unknown Rx Multivitamin Tab [Multiple Vitamin 1 each PO DAILY #30 tablet 03/27/21 Unknown Rx TAB (Theragran)] Aspirin EC [Halfprin EC] 81 mg PO QDAY #30 tablet 04/09/21 Unknown Rx Colchicine [Colcrys] 0.6 mg PO BID 3 Days #6 tablet 04/09/21 Unknown Rx Folic Acid [Folvite] 1 mg PO QDAY #30 tablet 04/09/21 Unknown Rx Losartan [Cozaar] 25 mg PO QDAY #30 tablet 04/09/21 Unknown Rx Thiamine [Vitamin B-1] 100 mg PO QDAY #30 tablet 04/09/21 Unknown Rx levETIRAcetam [Keppra TAB] 1,000 mg PO BID 30 Days #120 tablet 04/09/21 Unknown Rx predniSONE [Deltasone] 40 mg PO QDAY 6 Days #9 tablet 04/09/21 Unknown Rx Acetaminophen/Codeine [Tylenol 1 tab PO Q6H PRN #21 tab 04/25/21 Unknown Rx /Codeine # 3 tab] Acetaminophen [Acetaminophen 8 650 mg PO Q8H #30 tab 05/20/21 Unknown Rx Hour] cephALEXin [Keflex] 500 mg PO Q8HR #21 cap 05/20/21 Unknown Rx Ibuprofen [Motrin] 800 mg PO Q8HR PRN #30 tablet 06/11/21 Unknown Rx Cyclobenzaprine [Flexeril] 10 mg PO TID PRN #21 tab 06/13/21 Unknown Rx Naproxen [Naprosyn] 500 mg PO BID #14 tab 06/13/21 Unknown Rx ED Physical Exam - General Limitations: No Limitations General appearance: alert, in no apparent distress - Head Head exam: Present: atraumatic, normocephalic - Eye Eye exam: Present: normal appearance. Absent: conjunctival injection - Neck Neck exam: Present: normal inspection, full ROM. Absent: tenderness, lymphadenopathy - Respiratory Respiratory exam: Present: normal lung sounds bilaterally, chest wall tenderness (Right rib area). Absent: respiratory distress, wheezes, rales, rhonchi, stridor - Cardiovascular Cardiovascular Exam: Present: regular rate, normal heart sounds - GI/Abdominal GI/Abdominal exam: Present: soft, normal bowel sounds. Absent: distended, tenderness, guarding, rebound, rigid - Extremities Exam Extremities exam: Absent: normal inspection (1+ edema to bilateral hand) - Back Exam Back exam: Present: normal inspection, full ROM. Absent: tenderness, paraspinal tenderness, vertebral tenderness - Neurological Exam Neurological exam: Present: alert, oriented X3, normal gait, reflexes normal. Absent: motor sensory deficit - Psychiatric Psychiatric exam: Present: normal affect, normal mood - Skin Skin exam: Present: warm, dry, intact ED Course Vital Signs 06/12/21 06/13/21 06/13/21 20:55 07:23 08:28 Temperature 98.7 F 97.6 F Pulse Rate 83 101 H 105 H Respiratory 18 20 20 Rate Blood Pressure 167/94 143/72 170/88 O2 Sat by Pulse 96 96 Oximetry ED Medical Decision Making - Radiology Data Radiology results: report reviewed, image reviewed Right rib x-ray with PA chest: FINDINGS: CHEST: Heart size is stable. Lungs are clear without pleural effusion or pneumothorax. RIBS: No acute displaced rib fracture identified. IMPRESSION: No acute abnormality identified. Stable exam from 06/11/2021. - Medical Decision Making 66-year-old male with past medical history of seizures presents to the emergency department for evaluation of right rib pain. He states that he has not taken his seizure medicines in a few days, and he thinks that he had a seizure yesterday and fell landing on his right rib area. He presents with pain with movement and breathing to right rib area. Patient noted to be sleeping comfortably on reassessment, and no acute distress noted. States that pain is improved and did not ever complain of headache when interviewed by provider. Right rib x-ray without any acute abnormalities noted. Patient was given one-time dose of Keppra, and encouraged to restart seizure medication as previously ordered. He was advised to take medications as prescribed and follow-up with primary care provider if no improvement or worsening symptoms. Critical care attestation.: If time is entered above; I have spent that time in minutes in the direct care of this critically ill patient, excluding procedure time. ED Disposition Clinical Impression: Rib pain on right side Fall Qualifiers: Encounter type: initial encounter Qualified Code(s): W19.XXXA - Unspecified fall, initial encounter Disposition: HOME / SELF CARE / HOMELESS Is pt being admited?: No Does the pt Need Aspirin: No Condition: Stable Instructions: Nonspecific Chest Pain, Adult, Rib Contusion Additional Instructions: Take medications as prescribed. Restart seizure medication as previously prescribed. Follow-up with primary care provider if no improvement or worsening symptoms. Prescriptions: Cyclobenzaprine [Flexeril] 10 mg PO TID PRN #21 tab PRN Reason: Muscle Spasm Naproxen [Naprosyn] 500 mg PO BID #14 tab Referrals: TANA DEL VALLE MD [Primary Care Provider] - 3-5 Days Time of Disposition: 08:17
--- NOTE | 2021-06-13 08:10 | XRay Report ---
X-RAY RIGHT RIBS UNILATERAL WITH PA CHEST INDICATION: Fall, right rib pain COMPARISON: Radiographs dated 06/11/2021 FINDINGS: CHEST: Heart size is stable. Lungs are clear without pleural effusion or pneumothorax. RIBS: No acute displaced rib fracture identified. IMPRESSION: No acute abnormality identified. Stable exam from 06/11/2021. Signer Name: Rico Jain MD Signed: 06/13/2021 8:06 AM Workstation Name: [id number]
[2021-06-13 08:37] VITALS: BP 170/88
== END 2021-06-13 08:37 | disposition home or self-care (01) ==
LOC: ED 20:34
DX: R07.81 Pleurodynia (principal); I10 Essential (primary) hypertension; F41.9 Anxiety disorder, unspecified; F17.200 Nicotine dependence, unspecified, uncomplicated; Z88.8 Allergy status to other drugs, medicaments and biological substances; Z79.899 Other long term (current) drug therapy; W18.39XA Other fall on same level, initial encounter; Y93.89 Activity, other specified; Y92.89 Other specified places as the place of occurrence of the external cause; Y99.8 Other external cause status
CPT/HCPCS: 99283

== ENCOUNTER 2021-09-14 20:53 | Emergency (ER) | payer MEDICARE ==
[2021-09-15] MEDS ORDERED: IBUPROFEN 600 MG TAB PO ONE (08:09)
[2021-09-15] MEDS ORDERED: HYDROcodone/ACETAMINOPHEN 5-325 MG TAB PO ONE (08:09)
--- NOTE | 2021-09-15 08:36 | Emergency Department Report ---
ED General Adult HPI - General Chief complaint: Extremity Injury, Lower Stated complaint: BILATERAL KNEE PAIN Time Seen by Provider: 09/15/21 07:22 Source: patient Mode of arrival: Stretcher Limitations: No Limitations - History of Present Illness Initial comments: 66-year-old male with a past medical history of hypertension, seizures, asthma, psychiatric concerns reports to the ER with bilateral knee pain due to falling about 2 weeks ago. Patient also reports bilateral neck pain denies head injury but just reports neck pain. Denies numbness and tingling in the lower extremities and upper extremities. No other acute symptoms reported. Patient is disheveled in appearance and reports that he is homeless and is seeking food. No acute concerns for any acute distress at this time. Patient likely malingering in ER for skilled nursing. - Related Data Previous Rx's Medication Instructions Recorded Last Taken Type carvediloL [Coreg] 6.25 mg PO BID #60 tablet 12/18/20 Unknown Rx Quetiapine Fumarate [SEROquel] 50 mg PO QHS 30 Days #30 tab 03/17/21 Unknown Rx Calcium Carbonate [Oscal 1250MG 1,250 mg PO BID #60 tablet 03/18/21 Unknown Rx TAB] Magnesium 200 mg PO DAILY #7 tablet 03/27/21 Unknown Rx Multivitamin Tab [Multiple Vitamin 1 each PO DAILY #30 tablet 03/27/21 Unknown Rx TAB (Theragran)] Aspirin EC [Halfprin EC] 81 mg PO QDAY #30 tablet 04/09/21 Unknown Rx Colchicine [Colcrys] 0.6 mg PO BID 3 Days #6 tablet 04/09/21 Unknown Rx Folic Acid [Folvite] 1 mg PO QDAY #30 tablet 04/09/21 Unknown Rx Losartan [Cozaar] 25 mg PO QDAY #30 tablet 04/09/21 Unknown Rx Thiamine [Vitamin B-1] 100 mg PO QDAY #30 tablet 04/09/21 Unknown Rx levETIRAcetam [Keppra TAB] 1,000 mg PO BID 30 Days #120 tablet 04/09/21 Unknown Rx predniSONE [Deltasone] 40 mg PO QDAY 6 Days #9 tablet 04/09/21 Unknown Rx Acetaminophen/Codeine [Tylenol 1 tab PO Q6H PRN #21 tab 04/25/21 Unknown Rx /Codeine # 3 tab] Acetaminophen [Acetaminophen 8 650 mg PO Q8H #30 tab 05/20/21 Unknown Rx Hour] cephALEXin [Keflex] 500 mg PO Q8HR #21 cap 05/20/21 Unknown Rx Ibuprofen [Motrin] 800 mg PO Q8HR PRN #30 tablet 06/11/21 Unknown Rx Cyclobenzaprine [Flexeril] 10 mg PO TID PRN #21 tab 06/13/21 Unknown Rx Naproxen [Naprosyn] 500 mg PO BID #14 tab 06/13/21 Unknown Rx Naproxen 375 mg PO BID 7 Days #14 tab 09/15/21 Unknown Rx Phenytoin [Dilantin] 100 mg PO Q8HR 30 Days #90 capsule 09/15/21 Unknown Rx Allergies Allergy/AdvReac Type Severity Reaction Status Date / Time olanzapine [From Zyprexa] Allergy Nausea Verified 09/15/21 09:05 ED Review of Systems ROS: Stated complaint: BILATERAL KNEE PAIN Other details as noted in HPI Comment: All other systems reviewed and negative Musculoskeletal: other (Bilateral knee pain, bilateral neck pain.) ED Past Medical Hx - Past Medical History Previous Medical History?: Yes Hx Hypertension: Yes Hx Congestive Heart Failure: No Hx Diabetes: No Hx Seizures: Yes Hx Psychiatric Treatment: Yes (anxiety psychosis) Hx Asthma: Yes Hx COPD: No Additional medical history: Alcoholism. pancreatitis. legally blind - Surgical History Additional Surgical History: R knee surgery, left lung injury HIP SURGERY - Social History Smoking Status: Current Every Day Smoker Substance Use Type: Alcohol - Medications Home Medications: Home Medications Medication Instructions Recorded Confirmed Last Taken Type carvediloL [Coreg] 6.25 mg PO BID #60 tablet 12/18/20 03/18/21 Unknown Rx Quetiapine Fumarate [SEROquel] 50 mg PO QHS 30 Days #30 tab 03/17/21 Unknown Rx Calcium Carbonate [Oscal 1250MG 1,250 mg PO BID #60 tablet 03/18/21 Unknown Rx TAB] Magnesium 200 mg PO DAILY #7 tablet 03/27/21 Unknown Rx Multivitamin Tab [Multiple Vitamin 1 each PO DAILY #30 tablet 03/27/21 Unknown Rx TAB (Theragran)] Aspirin EC [Halfprin EC] 81 mg PO QDAY #30 tablet 04/09/21 Unknown Rx Colchicine [Colcrys] 0.6 mg PO BID 3 Days #6 tablet 04/09/21 Unknown Rx Folic Acid [Folvite] 1 mg PO QDAY #30 tablet 04/09/21 Unknown Rx Losartan [Cozaar] 25 mg PO QDAY #30 tablet 04/09/21 Unknown Rx Thiamine [Vitamin B-1] 100 mg PO QDAY #30 tablet 04/09/21 Unknown Rx levETIRAcetam [Keppra TAB] 1,000 mg PO BID 30 Days #120 tablet 04/09/21 Unknown Rx predniSONE [Deltasone] 40 mg PO QDAY 6 Days #9 tablet 04/09/21 Unknown Rx Acetaminophen/Codeine [Tylenol 1 tab PO Q6H PRN #21 tab 04/25/21 Unknown Rx /Codeine # 3 tab] Acetaminophen [Acetaminophen 8 650 mg PO Q8H #30 tab 05/20/21 Unknown Rx Hour] cephALEXin [Keflex] 500 mg PO Q8HR #21 cap 05/20/21 Unknown Rx Ibuprofen [Motrin] 800 mg PO Q8HR PRN #30 tablet 06/11/21 Unknown Rx Cyclobenzaprine [Flexeril] 10 mg PO TID PRN #21 tab 06/13/21 Unknown Rx Naproxen [Naprosyn] 500 mg PO BID #14 tab 06/13/21 Unknown Rx Naproxen 375 mg PO BID 7 Days #14 tab 09/15/21 Unknown Rx Phenytoin [Dilantin] 100 mg PO Q8HR 30 Days #90 capsule 09/15/21 Unknown Rx ED Physical Exam - General Limitations: No Limitations General appearance: alert, in no apparent distress - Head Head exam: Present: atraumatic, normocephalic - Eye Eye exam: Present: normal appearance - ENT ENT exam: Present: mucous membranes moist - Neck Neck exam: Present: normal inspection, tenderness (Muscle tenderness noted, no spinal process tenderness, no step-offs, no deformity noted. Full range of neck intact.), full ROM - Respiratory Respiratory exam: Present: normal lung sounds bilaterally. Absent: respiratory distress - Cardiovascular Cardiovascular Exam: Present: regular rate, normal rhythm. Absent: systolic murmur, diastolic murmur, rubs, gallop - GI/Abdominal GI/Abdominal exam: Present: soft, normal bowel sounds - Rectal Rectal exam: Present: deferred - Extremities Exam Extremities exam: Present: normal inspection - Expanded Lower Extremity Exam Left Knee exam: Present: full ROM, tenderness. Absent: swelling, abrasion, laceration, deformity Right Knee exam: Present: normal inspection, full ROM, tenderness. Absent: swelling, abrasion, deformity - Back Exam Back exam: Present: normal inspection - Neurological Exam Neurological exam: Present: alert, oriented X3 - Psychiatric Psychiatric exam: Present: normal affect, normal mood - Skin Skin exam: Present: warm, dry, intact, normal color. Absent: rash ED Course Vital Signs 09/14/21 09/15/21 21:10 09:00 Temperature 97.2 F L 97.7 F Pulse Rate 120 H 98 H Respiratory 16 18 Rate Blood Pressure 150/75 Blood Pressure 168/78 150/75 [Right] O2 Sat by Pulse 99 100 Oximetry ED Medical Decision Making - Radiology Data neck xray IMPRESSION: 1. No acute findings. 2. Mild/moderate cervical spondylosis. knee xray IMPRESSION: 1. No acute findings. 2. Severe right and moderate left osteoarthritis. - Medical Decision Making 66-year-old male with a past medical history of hypertension, seizures, asthma, psychiatric concerns reports to the ER with bilateral knee pain due to falling about 2 weeks ago. Patient also reports bilateral neck pain denies head injury but just reports neck pain. Denies numbness and tingling in the lower extremities and upper extremities. No other acute symptoms reported. Patient is disheveled in appearance and reports that he is homeless and is seeking food. No acute concerns for any acute distress at this time. Patient likely malingering in ER for skilled nursing. Bilateral knee tenderness is noted with full range of motion patient is ambulatory. Bilateral neck pain noted with muscular tenderness. No spinal tenderness noted full range of motion of neck noted. Patient is insistent on having x-ray of neck. Patient does not meet CT criteria for neck scan. No numbness no tingling noted in lower extremities. X-ray of neck x-ray of knees ordered. Order for pain medicine ordered. On reassessment at 9:59 AM. Patient reports a decrease in neck pain and knee pain after receiving oral medication for pain. No acute process noted on neck x-ray as well as knee bilateral knee x-ray. See x-ray report for more detailed explanation. Knee x-ray does show arthritis in both knees. Patient requesting medication refill for his Dilantin unsure of doses, review of prior chart shows that patient takes Dilantin 100 mg every 8 hours for seizures. Patient is stable for discharge. We will refill medication patient reports he will follow his primary care provider. Patient verbalized understanding agrees with plan of care. Vital Signs 09/14/21 09/15/21 21:10 09:00 Temperature 97.2 F L 97.7 F Pulse Rate 120 H 98 H Respiratory 16 18 Rate Blood Pressure 150/75 Blood Pressure 168/78 150/75 [Right] O2 Sat by Pulse 99 100 Oximetry Critical care attestation.: If time is entered above; I have spent that time in minutes in the direct care of this critically ill patient, excluding procedure time. ED Disposition Clinical Impression: Neck pain, bilateral, Medication refill Knee pain, bilateral Qualifiers: Chronicity: acute Qualified Code(s): M25.561 - Pain in right knee; M25.562 - Pain in left knee Disposition: 01 HOME / SELF CARE / HOMELESS Is pt being admited?: No Condition: Stable Instructions: Acute Knee Pain, Adult, Radicular Pain, Musculoskeletal Pain Prescriptions: Phenytoin [Dilantin] 100 mg PO Q8HR 30 Days #90 capsule Naproxen 375 mg PO BID 7 Days #14 tab
--- NOTE | 2021-09-15 09:09 | XRay Report ---
BILATERAL KNEES 6 VIEWS INDICATION / CLINICAL INFORMATION: Bilateral knee pain after fall. COMPARISON: Right knee series from 03/25/2017. FINDINGS: BONES and JOINT(S): No acute fracture or subluxation. Severe right and moderate left tricompartmental osteoarthritis is noted. SOFT TISSUES: Nonspecific calcification is seen along the right popliteal fossa. No acute findings. ADDITIONAL FINDINGS: None. IMPRESSION: 1. No acute findings. 2. Severe right and moderate left osteoarthritis. Signer Name: Jun Jenkins MD Signed: 09/15/2021 9:05 AM Workstation Name: [id number]
--- NOTE | 2021-09-15 09:14 | XRay Report ---
CERVICAL SPINE 3 VIEWS INDICATION: Neck pain. COMPARISON: No relevant prior imaging study available. FINDINGS: VERTEBRAE: No acute fracture. Normal alignment. DISC SPACES: Multilevel mild/moderate discogenic degenerative changes are seen that are most notable at C5-C6 and C6-C7. FACET JOINTS: There is multilevel bilateral facet arthropathy. SOFT TISSUES: Mild left common carotid atherosclerosis is noted. No other significant abnormality. ADDITIONAL FINDINGS: No additional significant findings. IMPRESSION: 1. No acute findings. 2. Mild/moderate cervical spondylosis. Signer Name: Jun Jenkins MD Signed: 09/15/2021 9:09 AM Workstation Name: [id number]
[2021-09-15] MEDS ORDERED: PHENYTOIN 100 MG CAPSULE.ER PO ONE (09:57)
[2021-09-15 10:48] VITALS: BP 169/87
== END 2021-09-15 10:48 | disposition home or self-care (01) ==
LOC: ED 20:53
DX: M54.2 Cervicalgia (principal); M25.562 Pain in left knee; M25.561 Pain in right knee; Z76.0 Encounter for issue of repeat prescription; I10 Essential (primary) hypertension; R56.9 Unspecified convulsions; F41.9 Anxiety disorder, unspecified; J45.909 Unspecified asthma, uncomplicated; F17.200 Nicotine dependence, unspecified, uncomplicated; Z91.09 Other allergy status, other than to drugs and biological substances; Z79.899 Other long term (current) drug therapy
CPT/HCPCS: 72040; 99284

== ENCOUNTER 2021-09-16 16:22 | Inpatient (IN) | payer MEDICARE ==
[2021-09-16] MEDS ORDERED: ADENOSINE 6 MG/2 ML INJ ONE (16:32)
[2021-09-16] MEDS ORDERED: dilTIAZem 25 MG/5 ML INJ ONE ×2 (16:38→16:39)
[2021-09-16] MEDS ORDERED: AMIODARONE 150 MG in DEXTROSE 5% IN WATER 100 ML IV ONE (16:44)
[2021-09-16] MEDS ORDERED: AMIODARONE 150 MG/100 ML-ED 150 MG/100 ML BAG IV ONE (16:55)
[2021-09-16] MEDS ORDERED: dilTIAZem 25 MG/5 ML INJ IV ONE ×2 (17:07→17:08)
[2021-09-16] MEDS ORDERED: ADENOSINE 6 MG/2 ML INJ IV ONE (17:08)
[2021-09-16] MEDS ORDERED: ACETAMINOPHEN 325 MG RECT SUPP PR ONE (17:22)
[2021-09-16] MEDS ORDERED: LORazepam 2 MG/ML VIAL IV ONE ×2 (17:23→19:30)
[2021-09-16] MEDS ORDERED: ROCURONIUM 50 MG/5 ML INJ IV ONE (17:23)
[2021-09-16] MEDS ORDERED: ETOMIDATE 20 MG/10 ML INJ IV ONE (17:23)
[2021-09-16] MEDS ORDERED: ACETAMINOPHEN 650 MG RECT SUPP PR ONE (17:24)
[2021-09-16] MEDS ORDERED: LORazepam 2 MG/ML VIAL IV PRN (17:24)
[2021-09-16 17:39] LABS: Bilirubin,Urine NEG (Negative); Blood,Urine SM (Negative); Color,Urine Amber (Yellow); Urobilinogen,Urine < 2.0 mg/dL (<2.0)
[2021-09-16 17:39] LABS: Amphetamine Screen,Urine PRESUMPTIVE POSITIVE; Benzodiazepines Screen,Urine PRESUMPTIVE NEGATIVE; Cannabinoid Screen,Urine PRESUMPTIVE NEGATIVE; Cocaine Screen,Urine PRESUMPTIVE NEGATIVE; Methadone Screen,Urine PRESUMPTIVE NEGATIVE; Opiate Screen,Urine PRESUMPTIVE NEGATIVE
[2021-09-16 17:54] LABS: Bacteria,Urine 2+ /HPF (Negative); Hyaline Casts,Urine 152 /LPF; Mucus,Urine 3+ /HPF
[2021-09-16 17:58] LABS: Basophils # (Auto) 0.1 K/mm3 (0.0-0.1); Basophils % (Auto) 0.8 % (0.0-1.8); Eosinophils % (Auto) 0.5 % (0.0-4.3); Hemoglobin 14.7 gm/dl (11.8-15.2); Lymphocytes # (Auto) 2.8 K/mm3 (1.2-5.4); Lymphocytes % (Auto) 33.1 % (13.4-35.0); Mean Corpuscular HGB Conc 34 % (32-34); Mean Corpuscular Volume 96 fl (84-94); Monocytes # (Auto) 0.7 K/mm3 (0.0-0.8); Monocytes % (Auto) 7.9 % (0.0-7.3); Platelet Count 238 K/mm3 (140-440); Red Blood Count 4.47 M/mm3 (3.65-5.03); Red Cell Distribution Width 13.3 % (13.2-15.2)
[2021-09-16] MEDS ORDERED: LORazepam 100 MG in SODIUM CHLORIDE 0.9% 50 ML, EMPTY BAG 0 ML IV SCH (18:00)
[2021-09-16] MEDS ORDERED: SODIUM CHLORIDE 0.9% 100 ML IVPB IV SCH (18:00)
[2021-09-16] MEDS ORDERED: OCTREOTIDE 50 MCG/1 ML INJ IV ONE (18:05)
[2021-09-16] MEDS ORDERED: PANTOPRAZOLE 40 MG INJ IV ONE (18:05)
[2021-09-16 18:17] LABS: Alanine Aminotransferase 10 units/L (7-56); Albumin 4.2 g/dL (3.9-5); BUN/Creatinine Ratio 14; Blood Urea Nitrogen 15 mg/dL (9-20); Calcium 9.4 mg/dL (8.4-10.2); Hemolysis Index 272
--- NOTE | 2021-09-16 18:23 | Emergency Department Report ---
ED General Adult HPI - General Chief complaint: Altered Mental Status Stated complaint: SVT Time Seen by Provider: 09/16/21 16:44 Source: EMS Mode of arrival: Stretcher Limitations: Altered Mental Status - History of Present Illness Initial comments: This is a 66-year-old homeless male brought in by EMS with concerns of altered mental status and also "very warm to touch." According to the EMS when they arrived on the scene patient had a fall with winter jacket on. When patient arrived in the ER patient was nonrebreather mask and appears to be tremulous and also confused and not responding. According to EMS they had given 6 mg of adenosine and then 12 mg adenosine with no effect. Immediate EKG revealed narrow regular supraventricular tachycardia with heart rate in the 175-180. Given that patient was confused/altered, decision was to give additional 12mg adenosine x1 (no change), then synchronized cardioversion at 100J x1 which did not convert as well. Cardiazem 20mg x1 and then 25mg x1; which - Related Data Previous Rx's Medication Instructions Recorded Last Taken Type carvediloL [Coreg] 6.25 mg PO BID #60 tablet 12/18/20 Unknown Rx Quetiapine Fumarate [SEROquel] 50 mg PO QHS 30 Days #30 tab 03/17/21 Unknown Rx Calcium Carbonate [Oscal 1250MG 1,250 mg PO BID #60 tablet 03/18/21 Unknown Rx TAB] Magnesium 200 mg PO DAILY #7 tablet 03/27/21 Unknown Rx Multivitamin Tab [Multiple Vitamin 1 each PO DAILY #30 tablet 03/27/21 Unknown Rx TAB (Theragran)] Aspirin EC [Halfprin EC] 81 mg PO QDAY #30 tablet 04/09/21 Unknown Rx Colchicine [Colcrys] 0.6 mg PO BID 3 Days #6 tablet 04/09/21 Unknown Rx Folic Acid [Folvite] 1 mg PO QDAY #30 tablet 04/09/21 Unknown Rx Losartan [Cozaar] 25 mg PO QDAY #30 tablet 04/09/21 Unknown Rx Thiamine [Vitamin B-1] 100 mg PO QDAY #30 tablet 04/09/21 Unknown Rx levETIRAcetam [Keppra TAB] 1,000 mg PO BID 30 Days #120 tablet 04/09/21 Unknown Rx predniSONE [Deltasone] 40 mg PO QDAY 6 Days #9 tablet 04/09/21 Unknown Rx Acetaminophen/Codeine [Tylenol 1 tab PO Q6H PRN #21 tab 04/25/21 Unknown Rx /Codeine # 3 tab] Acetaminophen [Acetaminophen 8 650 mg PO Q8H #30 tab 05/20/21 Unknown Rx Hour] cephALEXin [Keflex] 500 mg PO Q8HR #21 cap 05/20/21 Unknown Rx Ibuprofen [Motrin] 800 mg PO Q8HR PRN #30 tablet 06/11/21 Unknown Rx Cyclobenzaprine [Flexeril] 10 mg PO TID PRN #21 tab 06/13/21 Unknown Rx Naproxen [Naprosyn] 500 mg PO BID #14 tab 06/13/21 Unknown Rx Naproxen 375 mg PO BID 7 Days #14 tab 09/15/21 Unknown Rx Phenytoin [Dilantin] 100 mg PO Q8HR 30 Days #90 capsule 09/15/21 Unknown Rx Allergies Allergy/AdvReac Type Severity Reaction Status Date / Time olanzapine [From Zyprexa] Allergy Nausea Verified 09/15/21 09:05 ED Review of Systems ROS: Stated complaint: SVT Other details as noted in HPI ED Past Medical Hx - Past Medical History Hx Hypertension: Yes Hx Congestive Heart Failure: No Hx Diabetes: No Hx Seizures: Yes Hx Psychiatric Treatment: Yes (anxiety psychosis) Hx Asthma: Yes Hx COPD: No Additional medical history: Alcoholism. pancreatitis. legally blind - Surgical History Additional Surgical History: R knee surgery, left lung injury HIP SURGERY - Social History Smoking Status: Current Every Day Smoker Substance Use Type: Alcohol - Medications Home Medications: Home Medications Medication Instructions Recorded Confirmed Last Taken Type carvediloL [Coreg] 6.25 mg PO BID #60 tablet 12/18/20 03/18/21 Unknown Rx Quetiapine Fumarate [SEROquel] 50 mg PO QHS 30 Days #30 tab 03/17/21 Unknown Rx Calcium Carbonate [Oscal 1250MG 1,250 mg PO BID #60 tablet 03/18/21 Unknown Rx TAB] Magnesium 200 mg PO DAILY #7 tablet 03/27/21 Unknown Rx Multivitamin Tab [Multiple Vitamin 1 each PO DAILY #30 tablet 03/27/21 Unknown Rx TAB (Theragran)] Aspirin EC [Halfprin EC] 81 mg PO QDAY #30 tablet 04/09/21 Unknown Rx Colchicine [Colcrys] 0.6 mg PO BID 3 Days #6 tablet 04/09/21 Unknown Rx Folic Acid [Folvite] 1 mg PO QDAY #30 tablet 04/09/21 Unknown Rx Losartan [Cozaar] 25 mg PO QDAY #30 tablet 04/09/21 Unknown Rx Thiamine [Vitamin B-1] 100 mg PO QDAY #30 tablet 04/09/21 Unknown Rx levETIRAcetam [Keppra TAB] 1,000 mg PO BID 30 Days #120 tablet 04/09/21 Unknown Rx predniSONE [Deltasone] 40 mg PO QDAY 6 Days #9 tablet 04/09/21 Unknown Rx Acetaminophen/Codeine [Tylenol 1 tab PO Q6H PRN #21 tab 04/25/21 Unknown Rx /Codeine # 3 tab] Acetaminophen [Acetaminophen 8 650 mg PO Q8H #30 tab 05/20/21 Unknown Rx Hour] cephALEXin [Keflex] 500 mg PO Q8HR #21 cap 05/20/21 Unknown Rx Ibuprofen [Motrin] 800 mg PO Q8HR PRN #30 tablet 06/11/21 Unknown Rx Cyclobenzaprine [Flexeril] 10 mg PO TID PRN #21 tab 06/13/21 Unknown Rx Naproxen [Naprosyn] 500 mg PO BID #14 tab 06/13/21 Unknown Rx Naproxen 375 mg PO BID 7 Days #14 tab 09/15/21 Unknown Rx Phenytoin [Dilantin] 100 mg PO Q8HR 30 Days #90 capsule 09/15/21 Unknown Rx ED Physical Exam - General Limitations: Altered Mental Status ED Course Vital Signs 09/16/21 09/16/21 09/16/21 16:47 17:07 17:09 Temperature 107.3 F H 105.3 F H Pulse Rate 155 H 162 H Respiratory 46 H 48 H Rate Blood Pressure Blood Pressure 115/42 [Left] O2 Sat by Pulse 100 99 Oximetry 09/16/21 09/16/21 09/16/21 17:39 17:45 17:46 Temperature 103.7 F H Pulse Rate 130 H Respiratory 42 H 27 H Rate Blood Pressure 145/60 Blood Pressure [Left] O2 Sat by Pulse 100 99 Oximetry 09/16/21 09/16/21 09/16/21 18:00 18:16 18:30 Temperature Pulse Rate 125 H 132 H 124 H Respiratory 39 H 25 H 20 Rate Blood Pressure 145/60 140/68 146/79 Blood Pressure [Left] O2 Sat by Pulse 75 L 95 Oximetry 09/16/21 09/16/21 09/16/21 18:42 18:46 19:00 Temperature Pulse Rate 117 H 116 H Respiratory 22 25 H Rate Blood Pressure 146/79 131/79 Blood Pressure [Left] O2 Sat by Pulse 100 100 100 Oximetry 09/16/21 09/16/21 09/16/21 19:16 19:30 19:45 Temperature Pulse Rate 115 H 111 H 106 H Respiratory 18 22 26 H Rate Blood Pressure 124/78 124/78 131/79 Blood Pressure [Left] O2 Sat by Pulse 100 100 100 Oximetry 09/16/21 09/16/21 09/16/21 20:00 20:28 20:30 Temperature 97.3 F L Pulse Rate 92 H Respiratory 22 Rate Blood Pressure 131/79 115/71 Blood Pressure [Left] O2 Sat by Pulse 100 Oximetry - Reevaluation(s) Reevaluation #1: 09/16/21 21:[address]. samuel, would like patient to be admitted here; have patient on keppra and speak with teleneurologist and have patient admitted to icu here. will page teleneurologist. and intervsive care physician. 09/16/21 22:00 spoke to teleneurologist and also dr. emmanuel and also dr. wall. accepted. will admit here. - Consultations Consultation #1: 09/16/21 20:[address] CARLOS AND DR. DANIEL AT [facility] IN [place] WHO KINDLY ACCEPTED THE PATIENT. - Central Line Placement Right IJ Consent Obtained: emergent situation Time Out Performed: Yes Patient Placed on Monitor/Pulse Ox: Yes Prep: mask, gown, gloves Central Line Prep: Povidone-Iodine 1%, Chlorhexidine scrub, sterile drapes applied Local Anesthesia Used: Lidocaine 1% Amount of Anesthesia Used (mls): 5 Ultrasound Used for Placement: Yes Central Line Lumen Inserted: triple Reason for Insertion: High Alert Medication Bloods Obtained for Lab: No Central Line Position: good blood return, all ports aspirated, flus, sutured in place with nyl Dressing Applied: Tegaderm, sterile gauze/tape Post Procedure X-Ray: tip of catheter in good p Patient Tolerated Procedure: well, no complications Complications: none ED Medical Decision Making - Lab Data Result diagrams: 09/16/21 17:14 09/16/21 17:14 Critical Care Time: Yes Critical care time in (mins) excluding proc time.: 134 Critical care attestation.: If time is entered above; I have spent that time in minutes in the direct care of this critically ill patient, excluding procedure time. Critical Care Time: 132 MINUTES CRITICAL TIME ED Disposition Clinical Impression: Malignant hyperthermia, Heat stroke, Seizure, UTI (urinary tract infection), Hypomagnesemia, Fever, Fever 106 degrees F or over Disposition: 02 SHORT TERM HOSPITAL Is pt being admited?: Yes Does the pt Need Aspirin: No Condition: Stable Referrals: PRIMARY CARE, [Primary Care Provider] - 3-5 Days Time of Disposition: 20:38
[2021-09-16] MEDS ORDERED: OCTREOTIDE 500 MCG in SODIUM CHLORIDE 0.9% 100 ML IV SCH (19:00)
[2021-09-16] MEDS ORDERED: cefTRIAXone/NS 1 GM/50 ML 1 GM/50 ML BAG IV ONE (19:04)
--- NOTE | 2021-09-16 19:05 | XRay Report ---
Chest single view INDICATION: Chest pain IMPRESSION: There is prominent right mainstem intubation. Slight early subsegmental atelectasis of th e left lung is noted. No pleural effusion. CRITICAL RESULT: Right mainstem bronchus intubation Time of Discovery: 5:58 PM Time of Communication: 6:01 PM Licensed Practitioner Receiving Report: Dr. RODRIGUEZ Read Back Performed: Yes. Signer Name: Yaakov Oakes MD Signed: 09/16/2021 7:01 PM Workstation Name: [email or web address]
[2021-09-16] MEDS ORDERED: MIDAZOLAM 2 MG/2 ML INJ IV PRN (19:30)
[2021-09-16] MEDS ORDERED: MIDAZOLAM/NS Drip 100mg/100ml 100 MG/100 ML BAG IV SCH (20:00)
[2021-09-16 20:12] LABS: INR 1.16 (0.87-1.13)
[2021-09-16 20:12] LABS: ABG Base Excess -3.5 mmol/L (-2.0-3.0); ABG HCO3 22.2 mmol/L (20.0-26.0); ABG Methemoglobin 0.8 % (0.0-1.5); ABG Oxygen Saturation 99.6 % (95.0-99.0); ABG PCO2 42.8 mm Hg; ABG PH 7.333 pH Units (7.350-7.450)
[2021-09-16 20:13] LABS: Partial Thromboplastin Time 25.8 Sec. (24.2-36.6)
[2021-09-16 20:24] LABS: ABG PO2 433.9 mm Hg (80.0-90.0)
--- NOTE | 2021-09-16 20:57 | Cat Scan Report ---
CT HEAD WITHOUT CONTRAST INDICATION / CLINICAL INFORMATION: R/O BLEED. TECHNIQUE: All CT scans at this location are performed using CT dose reduction for ALARA by means of automated e xposure control. COMPARISON: None available. FINDINGS: HEMORRHAGE: No evidence of intracranial hemorrhage or extra-axial fluid collection. EXTRA-AXIAL SPACES: Cortical sulci, sylvian fissures and basilar cisterns have an unremarkable appear ance. VENTRICULAR SYSTEM: The third and lateral ventricles are mildly enlarged reflecting central greater t barriga cortical parenchymal volume loss. CEREBRAL PARENCHYMA: Decreased brain parenchymal attenuation in a periventricular and deep white alicia er distribution likely reflects microvascular ischemic change. No acute intracranial abnormality is i dentified. MIDLINE SHIFT OR HERNIATION: There is no mass effect. CEREBELLUM / BRAINSTEM: Brainstem and cerebellum have an unremarkable appearance. MIDLINE STRUCTURES:No abnormalities of the pituitary gland or pineal region are identified. INTRACRANIAL VESSELS:No abnormalities are identified on this noncontrast head CT. ORBITS: visualized portions of the orbits have an unremarkable appearance. SOFT TISSUES of HEAD: No significant abnormality. CALVARIUM: Evaluation of bone windows reveals no abnormalities. PARANASAL SINUSES / MASTOID AIR CELLS: Visualized portions of the paranasal sinuses are free from inf lammatory mucosal disease. Mastoid air cells are normally pneumatized. ADDITIONAL FINDINGS: Nasoenteric tube is coiled in the nasopharynx. The tip of the tube is not identi fied on this study. IMPRESSION: 1. No acute intracranial abnormality. 2. Nasoenteric tube is coiled in the nasopharynx. CRITICAL RESULT: Time of Discovery (TRANSACTIONAL ATTORNEY/CDT): 194 Time of Communication (TRANSACTIONAL ATTORNEY/CDT): 1949 Licensed Practitioner Receiving Report: Dr. Crawford Read-Back Performed: Not applicable. Signer Name: Dewayne Alvares MD Signed: 09/16/2021 8:52 PM Workstation Name: [id number]
--- NOTE | 2021-09-16 21:24 | XRay Report ---
Chest single view INDICATION: Chest pain IMPRESSION: The esophagogastric tube is not identified. Endotracheal tube terminates 3 cm above the c shashi. The lungs demonstrate patchy opacities. Signer Name: Yaakov Oakes MD Signed: 09/16/2021 9:19 PM Workstation Name: [employer]
--- NOTE | 2021-09-16 21:58 | Consultation ---
History of Present Illness History of present illness: [facility] Consult Note # Demographics Consult Type: General Neurology Patient Location: Emergency Room First Name: Mayank Last Name: Day Date of : 1955 Age: 66 Gender: Male Time of Initial Page ([facility] [place]): 09/17/2021, 01:48 Time of Return Call ([facility] [place]): 09/17/2021, 01:49 Phone Only Consult: 66M presented with AMS, witnessed seizures on arrival to ED. Febrile to 107.6F, noted to be amphetamine positive as well. Intubated. Still having seizures despite on lorazepam drip at 5mg/hr. Likely provoked seizures from combination of amphetamine intoxication and severe hyperthermia, the latter of which is now controlled. Recommend switching to midazolam. Given 0.1 mg/kg bolus and start infusion at 0.1 mg/kg/hr. If seizures persist, bolus again 0.1 mg/kg and increase continuous infusion by 0.1 mg/kg/hr. Would benefit from video EEG monitoring. # [employer] Telemedicine: phone only Medications and Allergies Allergies Allergy/AdvReac Type Severity Reaction Status Date / Time olanzapine [From Zyprexa] Allergy Nausea Verified 09/15/21 09:05 Home Medications Medication Instructions Recorded Confirmed Last Taken Type carvediloL [Coreg] 6.25 mg PO BID #60 tablet 12/18/20 03/18/21 Unknown Rx Quetiapine Fumarate [SEROquel] 50 mg PO QHS 30 Days #30 tab 03/17/21 Unknown Rx Calcium Carbonate [Oscal 1250MG 1,250 mg PO BID #60 tablet 03/18/21 Unknown Rx TAB] Magnesium 200 mg PO DAILY #7 tablet 03/27/21 Unknown Rx Multivitamin Tab [Multiple Vitamin 1 each PO DAILY #30 tablet 03/27/21 Unknown Rx TAB (Theragran)] Aspirin EC [Halfprin EC] 81 mg PO QDAY #30 tablet 04/09/21 Unknown Rx Colchicine [Colcrys] 0.6 mg PO BID 3 Days #6 tablet 04/09/21 Unknown Rx Folic Acid [Folvite] 1 mg PO QDAY #30 tablet 04/09/21 Unknown Rx Losartan [Cozaar] 25 mg PO QDAY #30 tablet 04/09/21 Unknown Rx Thiamine [Vitamin B-1] 100 mg PO QDAY #30 tablet 04/09/21 Unknown Rx levETIRAcetam [Keppra TAB] 1,000 mg PO BID 30 Days #120 tablet 04/09/21 Unknown Rx predniSONE [Deltasone] 40 mg PO QDAY 6 Days #9 tablet 04/09/21 Unknown Rx Acetaminophen/Codeine [Tylenol 1 tab PO Q6H PRN #21 tab 04/25/21 Unknown Rx /Codeine # 3 tab] Acetaminophen [Acetaminophen 8 650 mg PO Q8H #30 tab 05/20/21 Unknown Rx Hour] cephALEXin [Keflex] 500 mg PO Q8HR #21 cap 05/20/21 Unknown Rx Ibuprofen [Motrin] 800 mg PO Q8HR PRN #30 tablet 06/11/21 Unknown Rx Cyclobenzaprine [Flexeril] 10 mg PO TID PRN #21 tab 06/13/21 Unknown Rx Naproxen [Naprosyn] 500 mg PO BID #14 tab 06/13/21 Unknown Rx Naproxen 375 mg PO BID 7 Days #14 tab 09/15/21 Unknown Rx Phenytoin [Dilantin] 100 mg PO Q8HR 30 Days #90 capsule 09/15/21 Unknown Rx Active Meds: Active Medications Lorazepam 100 mg/ Sodium Chloride/ Miscellaneous Information 100 mls @ 5 mls/hr IV TITR DG; Protocol Last Admin: 09/16/21 18:24 Dose: 5 mg/hr, 5 mls/hr Octreotide Acetate 500 mcg/ (Sodium Chloride) 101 mls @ 5.05 mls/hr IV TITR DG; Protocol Pantoprazole Sodium 80 mg/ (Sodium Chloride) 100 mls @ 10 mls/hr IV DIRECT DG MIDAZOLAM/NS Drip 100mg/100ml (Midazolam/Ns Drip 100mg/100ml) 100 mg in 100 mls @ 1 mls/hr IV TITR DG; Protocol Last Admin: 09/16/21 20:02 Dose: 1 mg/hr, 1 mls/hr Levetiracetam 1,500 mg/ (Dextrose) 115 mls @ 400 mls/hr IV Q12HR DG Lorazepam (Lorazepam 2 Mg/Ml Vial) 2 mg IV Q10MIN PRN PRN Reason: Agitation Last Admin: 09/16/21 19:35 Dose: 2 mg Midazolam HCl (Midazolam 2 Mg/2 Ml Inj) 2 mg IV Q10MIN PRN PRN Reason: Sedation Sodium Chloride (Sodium Chloride 0.9% 100 Ml Ivpb) 3,000 ml IV DIRECT DG Physical Examination - Vital Signs Vital Signs: Vital Signs Temp Pulse Resp BP Pulse Ox 107.3 F H 155 H 46 H 115/42 100 09/16/21 16:47 09/16/21 16:47 09/16/21 16:47 09/16/21 16:47 09/16/21 16:47 Results - Laboratory Findings CBC and BMP: 09/16/21 17:14 09/16/21 17:14 Abnormal Lab Findings: Abnormal Labs 09/16/21 09/16/21 09/16/21 16:59 17:10 17:14 MCV 96 H MCH 33 H [place] % (Auto) 7.9 H PT INR ABG pH ABG pO2 ABG O2 Saturation ABG Base Excess ABG Hemoglobin Sodium Potassium Carbon Dioxide Glucose POC Glucose 144 H Lactic Acid Magnesium Urine WBC (Auto) 59.0 H 09/16/21 09/16/21 09/16/21 17:14 17:14 19:53 MCV MCH [place] % (Auto) PT 16.1 H INR 1.16 H ABG pH ABG pO2 ABG O2 Saturation ABG Base Excess ABG Hemoglobin Sodium 135 L Potassium 5.2 H Carbon Dioxide 16 L Glucose 130 H POC Glucose Lactic Acid 3.20 H* Magnesium 1.40 L Urine WBC (Auto) 09/16/21 20:00 MCV MCH [place] % (Auto) PT INR ABG pH 7.333 L ABG pO2 433.9 H ABG O2 Saturation 99.6 H ABG Base Excess -3.5 L ABG Hemoglobin 13.1 L Sodium Potassium Carbon Dioxide Glucose POC Glucose Lactic Acid Magnesium Urine WBC (Auto)
--- NOTE | 2021-09-16 22:07 | XRay Report ---
CHEST 1 VIEW 09/16/2021 9:49 PM INDICATION / CLINICAL INFORMATION: Status post central line placement. COMPARISON: One view of the chest from earlier today.. FINDINGS: SUPPORT DEVICES: Unchanged ET tube. A right internal jugular CVL has been placed and terminates over the distal SVC. HEART / MEDIASTINUM: No significant abnormality. LUNGS / PLEURA: Previously seen bilateral pulmonary opacities have slightly improved. No new acute pu lmonary abnormality. No significant pleural effusion. No pneumothorax. ADDITIONAL FINDINGS: No significant additional findings. IMPRESSION: 1. Satisfactory positioning of the right internal jugular CVL. 2. Improved aeration of the lungs. Signer Name: Jun Jenkins MD Signed: 09/16/2021 10:03 PM Workstation Name: [id number]
[2021-09-16] MEDS: levETIRAcetam 1,500 MG in DEXTROSE 5% IN WATER 100 ML IV SCH (22:43)
[2021-09-16] MEDS: PANTOPRAZOLE 80 MG in SODIUM CHLORIDE 0.9% 100 ML IV SCH (22:51)
[2021-09-16] MEDS ORDERED: ALBUTEROL 2.5 MG/3 ML NEBU IH PRN (23:25)
[2021-09-16] MEDS ORDERED: ONDANSETRON 4 MG/2 ML INJ IV PRN (23:25)
[2021-09-16] MEDS ORDERED: MORPHINE 4 MG/1 ML INJ IV PRN (23:25)
[2021-09-16] MEDS ORDERED: MORPHINE 2 MG/1 ML INJ IV PRN (23:25)
--- NOTE | 2021-09-16 23:39 | History and Physical Report ---
History of Present Illness Date of examination: 09/16/21 Date of admission: 09/16/21 Chief complaint: Altered mental status Hyperthermia Seizure History of present illness: 66-year-old homeless male with past medical history of asthma, alcoholism, pancreatitis, legally blind seizure was brought to the emergency room by EMS with concerns of altered mental status and also "very warm to touch." Patient temperature is 107.3 Fahrenheit When EMS arrived on the scene patient had a fall with winter jacket on. When patient arrived in the ER patient was nonrebreather mask and appears to be tremulous and also confused and not responding. According to EMS they had given 6 mg of adenosine and then 12 mg adenosine with no effect. Immediate EKG revealed narrow regular supraventricular tachycardia with heart rate in the 175- 180. Given that patient was confused/altered, decision was to give additional 12mg adenosine x1 (no change), then synchronized cardioversion at 100J x1 which did not convert as well. Cardiazem 20mg x1 and then 25mg x1; which. Patient was intubated in the emergency room. Initial CT scan of the head shows no acute intracranial abnormality We will going to admit the patient we will put the patient on ICU. We also consult neurology critical care and cardiology for evaluation Past History Past Medical History: seizures (Alcoholism. pancreatitis. legally blind, anxiety psychosis) Past Surgical History: Other (R knee surgery, left lung injury HIP SURGERY) Social history: smoking, alcohol abuse Family history: hypertension Medications and Allergies Allergies Allergy/AdvReac Type Severity Reaction Status Date / Time olanzapine [From Zyprexa] Allergy Nausea Verified 09/15/21 09:05 Home Medications Medication Instructions Recorded Confirmed Last Taken Type carvediloL [Coreg] 6.25 mg PO BID #60 tablet 12/18/20 03/18/21 Unknown Rx Quetiapine Fumarate [SEROquel] 50 mg PO QHS 30 Days #30 tab 03/17/21 Unknown Rx Calcium Carbonate [Oscal 1250MG 1,250 mg PO BID #60 tablet 03/18/21 Unknown Rx TAB] Magnesium 200 mg PO DAILY #7 tablet 03/27/21 Unknown Rx Multivitamin Tab [Multiple Vitamin 1 each PO DAILY #30 tablet 03/27/21 Unknown Rx TAB (Theragran)] Aspirin EC [Halfprin EC] 81 mg PO QDAY #30 tablet 04/09/21 Unknown Rx Colchicine [Colcrys] 0.6 mg PO BID 3 Days #6 tablet 04/09/21 Unknown Rx Folic Acid [Folvite] 1 mg PO QDAY #30 tablet 04/09/21 Unknown Rx Losartan [Cozaar] 25 mg PO QDAY #30 tablet 04/09/21 Unknown Rx Thiamine [Vitamin B-1] 100 mg PO QDAY #30 tablet 04/09/21 Unknown Rx levETIRAcetam [Keppra TAB] 1,000 mg PO BID 30 Days #120 tablet 04/09/21 Unknown Rx predniSONE [Deltasone] 40 mg PO QDAY 6 Days #9 tablet 04/09/21 Unknown Rx Acetaminophen/Codeine [Tylenol 1 tab PO Q6H PRN #21 tab 04/25/21 Unknown Rx /Codeine # 3 tab] Acetaminophen [Acetaminophen 8 650 mg PO Q8H #30 tab 05/20/21 Unknown Rx Hour] cephALEXin [Keflex] 500 mg PO Q8HR #21 cap 05/20/21 Unknown Rx Ibuprofen [Motrin] 800 mg PO Q8HR PRN #30 tablet 06/11/21 Unknown Rx Cyclobenzaprine [Flexeril] 10 mg PO TID PRN #21 tab 06/13/21 Unknown Rx Naproxen [Naprosyn] 500 mg PO BID #14 tab 06/13/21 Unknown Rx Naproxen 375 mg PO BID 7 Days #14 tab 09/15/21 Unknown Rx Phenytoin [Dilantin] 100 mg PO Q8HR 30 Days #90 capsule 09/15/21 Unknown Rx Active Meds: Active Medications Acetaminophen (Acetaminophen 325 Mg Tab) 650 mg PO Q4H PRN PRN Reason: Pain MILD(1-3)/Fever >100.5/CAAL Albuterol (Albuterol 2.5 Mg/3 Ml Nebu) 2.5 mg IH Q3HRT PRN PRN Reason: Shortness Of Breath Albuterol/Ipratropium (Ipratropium/Albuterol Sulfate 3 Ml Ampul.Neb) 1 ampul IH Q6HRT DG Aspirin (Aspirin Ec 81 Mg Tab) 81 mg PO QDAY DG Calcium Carbonate/Glycine (Calcium Carbonate 1250 Mg Tab) 1,250 mg PO BID DG Carvedilol (Carvedilol 6.25 Mg Tab) 6.25 mg PO BID DG Famotidine (Famotidine 20 Mg/2 Ml Inj) 20 mg IV BID DG Folic Acid (Folic Acid 1 Mg Tab) 1 mg PO QDAY DG Lorazepam 100 mg/ Sodium Chloride/ Miscellaneous Information 100 mls @ 5 mls/hr IV TITR DG; Protocol Last Admin: 09/16/21 18:24 Dose: 5 mg/hr, 5 mls/hr Octreotide Acetate 500 mcg/ (Sodium Chloride) 101 mls @ 5.05 mls/hr IV TITR DG; Protocol Pantoprazole Sodium 80 mg/ (Sodium Chloride) 100 mls @ 10 mls/hr IV DIRECT DG Last Admin: 09/16/21 22:51 Dose: 8 mg/hr, 10 mls/hr MIDAZOLAM/NS Drip 100mg/100ml (Midazolam/Ns Drip 100mg/100ml) 100 mg in 100 mls @ 1 mls/hr IV TITR DG; Protocol Last Admin: 09/16/21 20:02 Dose: 1 mg/hr, 1 mls/hr Levetiracetam 1,500 mg/ (Dextrose) 115 mls @ 400 mls/hr IV Q12HR DG Last Admin: 09/16/21 22:43 Dose: 400 mls/hr Dextrose/Sodium Chloride (D5ns) 1,000 mls @ 100 mls/hr IV DIRECT DG Lorazepam (Lorazepam 2 Mg/Ml Vial) 2 mg IV Q10MIN PRN PRN Reason: Agitation Last Admin: 09/16/21 19:35 Dose: 2 mg Losartan Potassium (Losartan 25 Mg Tab) 25 mg PO QDAY [facility] Midazolam HCl (Midazolam 2 Mg/2 Ml Inj) 2 mg IV Q10MIN PRN PRN Reason: Sedation Miscellaneous Medication (Magnesium [Magnesium]) 200 mg PO DAILY [facility] Morphine Sulfate (Morphine 2 Mg/1 Ml Inj) 2 mg IV Q4H PRN PRN Reason: Pain, Moderate (4-6) Morphine Sulfate (Morphine 4 Mg/1 Ml Inj) 4 mg IV Q4H PRN PRN Reason: Pain , Severe (7-10) Multivitamins (Multivitamins ,Therapeutic Tab) 1 each PO DAILY [facility] Ondansetron HCl (Ondansetron 4 Mg/2 Ml Inj) 4 mg IV Q8H PRN PRN Reason: Nausea And Vomiting Phenytoin (Phenytoin 100 Mg Capsule.Er) 100 mg PO Q8HR DG Sodium Chloride (Sodium Chloride 0.9% 100 Ml Ivpb) 3,000 ml IV DIRECT DG Sodium Chloride (Sodium Chloride 0.9% 10 Ml Flush Syringe) 10 ml IV BID DG Sodium Chloride (Sodium Chloride 0.9% 10 Ml Flush Syringe) 10 ml IV PRN PRN PRN Reason: LINE FLUSH Thiamine HCl (Thiamine 100 Mg Tab) 100 mg PO QDAY DG Review of Systems All systems: negative Constitutional: fatigue, weakness, malaise, lethargy, other (Altered mental status) Exam - Constitutional Vitals: Temp Pulse Resp BP Pulse Ox 97.3 F L 89 19 89/58 100 09/16/21 20:00 09/16/21 22:00 09/16/21 22:00 09/16/21 22:00 09/16/21 22:00 General appearance: Present: severe distress - EENT Eyes: Present: PERRL ENT: hearing intact, clear oral mucosa - Neck Neck: Present: supple, normal ROM - Respiratory Respiratory effort: normal Respiratory: bilateral: diminished - Cardiovascular Heart Sounds: Present: S1 & S2. Absent: rub, click - Extremities Extremities: pulses symmetrical, No edema Peripheral Pulses: within normal limits - Abdominal General gastrointestinal: Present: soft, non-tender, non-distended, normal bowel sounds Male genitourinary: Present: normal - Integumentary Integumentary: Present: clear, warm, dry - Musculoskeletal Musculoskeletal: gait normal, strength equal bilaterally - Neurologic Neurologic: CNII-XII intact, moves all extremities HEART Score - HEART Score Troponin: Troponin T < 0.010 ng/mL (0.00-0.029) 09/16/21 17:14 Results - Labs CBC & Chem 7: 09/16/21 17:14 09/16/21 17:14 Labs: Laboratory Last Values WBC 8.4 K/mm3 (4.5-11.0) 09/16/21 17:14 RBC 4.47 M/mm3 (3.65-5.03) 09/16/21 17:14 Hgb 14.7 gm/dl (11.8-15.2) 09/16/21 17:14 Hct 43.0 % (35.5-45.6) 09/16/21 17:14 MCV 96 fl (84-94) H 09/16/21 17:14 MCH 33 pg (28-32) H 09/16/21 17:14 MCHC 34 % (32-34) 09/16/21 17:14 RDW 13.3 % (13.2-15.2) 09/16/21 17:14 Plt Count 238 K/mm3 (140-440) 09/16/21 17:14 Lymph % (Auto) 33.1 % (13.4-35.0) 09/16/21 17:14 [place] % (Auto) 7.9 % (0.0-7.3) H 09/16/21 17:14 Eos % (Auto) 0.5 % (0.0-4.3) 09/16/21 17:14 Baso % (Auto) 0.8 % (0.0-1.8) 09/16/21 17:14 Lymph # (Auto) 2.8 K/mm3 (1.2-5.4) 09/16/21 17:14 [place] # (Auto) 0.7 K/mm3 (0.0-0.8) 09/16/21 17:14 Eos # (Auto) 0.0 K/mm3 (0.0-0.4) 09/16/21 17:14 Baso # (Auto) 0.1 K/mm3 (0.0-0.1) 09/16/21 17:14 Seg Neutrophils % 57.7 % (40.0-70.0) 09/16/21 17:14 Seg Neutrophils # 4.9 K/mm3 (1.8-7.7) 09/16/21 17:14 PT 16.1 Sec. (12.2-14.9) H 09/16/21 19:53 INR 1.16 (0.87-1.13) H 09/16/21 19:53 APTT 25.8 Sec. (24.2-36.6) 09/16/21 19:53 ABG pH 7.333 pH Units (7.350-7.450) L 09/16/21 20:00 ABG pCO2 42.8 mm Hg 09/16/21 20:00 ABG pO2 433.9 mm Hg (80.0-90.0) H 09/16/21 20:00 ABG HCO3 22.2 mmol/L (20.0-26.0) 09/16/21 20:00 ABG O2 Saturation 99.6 % (95.0-99.0) H 09/16/21 20:00 ABG O2 Content 19.2 (0.0-44) 09/16/21 20:00 ABG Base Excess -3.5 mmol/L (-2.0-3.0) L 09/16/21 20:00 ABG Hemoglobin 13.1 gm/dl (14.0-18.0) L 09/16/21 20:00 ABG Carboxyhemoglobin 1.1 % (0.0-5.0) 09/16/21 20:00 ABG Methemoglobin 0.8 % (0.0-1.5) 09/16/21 20:00 Oxyhemoglobin 97.7 % (95.0-99.0) 09/16/21 20:00 FiO2 100 % 09/16/21 20:00 Sodium 135 mmol/L (137-145) L 09/16/21 17:14 Potassium 5.2 mmol/L (3.6-5.0) H 09/16/21 17:14 Chloride 98.8 mmol/L (98-107) 09/16/21 17:14 Carbon Dioxide 16 mmol/L (22-30) L 09/16/21 17:14 Anion Gap 25 mmol/L 09/16/21 17:14 BUN 15 mg/dL (9-20) 09/16/21 17:14 Creatinine 1.1 mg/dL (0.8-1.3) 09/16/21 17:14 Estimated GFR > 60 ml/min 09/16/21 17:14 BUN/Creatinine Ratio 14 % 09/16/21 17:14 Glucose 130 mg/dL (75-100) H 09/16/21 17:14 POC Glucose 144 mg/dL (70-105) H 09/16/21 16:59 Lactic Acid 3.20 mmol/L (0.7-2.0) H* 09/16/21 17:14 Calcium 9.4 mg/dL (8.4-10.2) 09/16/21 17:14 Magnesium 1.40 mg/dL (1.7-2.3) L 09/16/21 17:14 Total Bilirubin 1.00 mg/dL (0.1-1.2) 09/16/21 17:14 AST 37 units/L (5-40) 09/16/21 17:14 ALT 10 units/L (7-56) 09/16/21 17:14 Alkaline Phosphatase 77 units/L (35-129) 09/16/21 17:14 Total Creatine Kinase 142 units/L (55-170) 09/16/21 17:14 Troponin T < 0.010 ng/mL (0.00-0.029) 09/16/21 17:14 NT-Pro-B Natriuret Pep 342.9 pg/mL (0-900) 09/16/21 17:14 Total Protein 7.0 g/dL (6.3-8.2) 09/16/21 17:14 Albumin 4.2 g/dL (3.9-5) 09/16/21 17:14 Albumin/Globulin Ratio 1.5 % 09/16/21 17:14 Urine Color (Yellow) 09/16/21 17:10 Urine Turbidity Cloudy (Clear) 09/16/21 17:10 Urine pH 5.0 (5.0-7.0) 09/16/21 17:10 Ur Specific [place] 1.023 (1.003-1.030) 09/16/21 17:10 Urine Protein 100 mg/dl mg/dL (Negative) 09/16/21 17:10 Urine Glucose (UA) Neg mg/dL (Negative) 09/16/21 17:10 Urine Ketones 80 mg/dL (Negative) 09/16/21 17:10 Urine Blood Sm (Negative) 09/16/21 17:10 Urine Nitrite Neg (Negative) 09/16/21 17:10 Urine Bilirubin Neg (Negative) 09/16/21 17:10 Urine Urobilinogen < 2.0 mg/dL (<2.0) 09/16/21 17:10 Ur Leukocyte Esterase Mod (Negative) 09/16/21 17:10 Urine WBC (Auto) 59.0 /HPF (0.0-6.0) H 09/16/21 17:10 Urine RBC (Auto) 8.0 /HPF (0.0-6.0) 09/16/21 17:10 U Epithel Cells (Auto) 1.0 /HPF (0-13.0) 09/16/21 17:10 Urine Bacteria (Auto) 2+ /HPF (Negative) 09/16/21 17:10 Hyaline Casts 152 /LPF 09/16/21 17:10 Urine Mucus 3+ /HPF 09/16/21 17:10 Urine Yeast (Budding) Not Reportable 09/16/21 17:10 Urine Opiates Screen Presumptive negative 09/16/21 17:13 Urine Methadone Screen Presumptive negative 09/16/21 17:13 Ur Barbiturates Screen Presumptive negative 09/16/21 17:13 Ur Phencyclidine Scrn Presumptive negative 09/16/21 17:13 Ur Amphetamines Screen Presumptive positive 09/16/21 17:13 U Benzodiazepines Scrn Presumptive negative 09/16/21 17:13 Urine Cocaine Screen Presumptive negative 09/16/21 17:13 U Marijuana (THC) Screen Presumptive negative 09/16/21 17:13 Drugs of Abuse Note Disclamer 09/16/21 17:13 Plasma/Serum Alcohol < 0.01 % (0-0.07) 09/16/21 18:17 Blood Type A POSITIVE 09/16/21 21:00 Antibody Screen Negative 09/16/21 21:00 Microbiology: Microbiology 09/16/21 17:14 Peripheral/Venous Blood Culture - Preliminary Culture in Progress 09/16/21 17:14 Peripheral/Venous Blood Culture - Preliminary Culture in Progress 09/16/21 19:26 Stool Stool Occult Blood (SEE) - Final - Imaging and Cardiology Chest x-ray: report reviewed CT Scan - head: report reviewed Assessment and Plan VTE prophylaxis?: Mechanical Plan of care discussed with patient/family: Yes - Patient Problems (1) Acute respiratory failure Current Visit: Yes Status: Acute Plan to address problem: Admit the patient to the critical care unit. NPO. D5 normal saline at the rate of 100 cc/h. DuoNeb by nebulizer every 4 hours. Albuterol via nebulizer every 4 hours as needed. Reconsult critical care evaluation. (2) Heat stroke Current Visit: Yes Status: Acute Plan to address problem: We will put the patient on cooling blanket. We will monitor the temperature closely. Tylenol 650 mg p.o. every 6 hours as needed. D5 normal saline at the rate of 100 cc/h (3) Malignant hyperthermia Current Visit: Yes Status: Acute Plan to address problem: We will put the patient on cooling blanket. We will monitor the temperature closely. Tylenol 650 mg p.o. every 6 hours as needed. D5 normal saline at the rate of 100 cc/h (4) Seizures Current Visit: Yes Status: Acute Plan to address problem: Patient is on Ativan and Versed drip. We order EEG and MRI of the brain with and without contrast. Neurology evaluation. Monitor the patient closely (5) Urinary tract infection Current Visit: Yes Status: Acute Plan to address problem: Rocephin 2 g IV daily. We will do the blood culture urine culture. (6) Alcohol dependence Current Visit: No Status: Acute Plan to address problem: We counseled the patient regarding quit drinking. We will put the patient on thiamine folic acid and banana bag daily. (7) SVT (supraventricular tachycardia) Current Visit: Yes Status: Acute Plan to address problem: According to EMS they had given 6 mg of adenosine and then 12 mg adenosine with no effect. Immediate EKG revealed narrow regular supraventricular tachycardia with heart rate in the 175-180. Given that patient was confused/altered, decision was to give additional 12mg adenosine x1 (no change), then synchronized cardioversion at 100J x1 which did not convert as well. Cardiazem 20mg x1 and then 25mg x1; which Echocardiogram. Will consult cardiology for evaluation. (8) Hypomagnesemia Current Visit: Yes Status: Acute Plan to address problem: Magnesium 2 g IV x1 dose. We will recheck the magnesium level in the morning (9) Lactic acidosis Current Visit: Yes Status: Acute Plan to address problem: D5 normal saline at the rate of 100 cc/h. Rocephin 2 g IV daily. We will repeat the lactic acid in 4 hours (10) DVT prophylaxis Current Visit: No Status: Acute Plan to address problem: SCD for DVT prophylaxis. Pepcid 20 mg IV every 12 hours for GI prophylaxis. Patient is a full code
[2021-09-16] MEDS ORDERED: D5W/0.9% NACL 1,000 ML IV SCH (23:45)
[2021-09-17] MEDS ORDERED: THIAMINE 100 MG, FOLIC ACID 1 MG, MULTIPLE VITAMIN INJ, ADULT 10 ML in SODIUM CHLORIDE ... IV ONE (00:12)
[2021-09-17] MEDS ORDERED: MAGNESIUM SULFATE 2 GM/50 ML BAG IV ONE (00:15)
[2021-09-17] MEDS: IPRATROPIUM/ALBUTEROL SULFATE 3 ML AMPUL.NEB IH SCH ×2 (01:42→08:26)
--- NOTE | 2021-09-17 03:52 | XRay Report ---
ABDOMEN 1 VIEW(S) INDICATION / CLINICAL INFORMATION: ng tube placement. COMPARISON: None available. FINDINGS: TUBES / LINES: NG tube in satisfactory position. BOWEL GAS PATTERN: Moderate small bowel distention. ADDITIONAL FINDINGS: No significant additional findings. Signer Name: Manuel Hamilton MD Signed: 09/17/2021 3:47 AM Workstation Name: [id number]
[2021-09-17] MEDS ORDERED: OCTREOTIDE 500 MCG in SODIUM CHLORIDE 0.9% 100 ML IV SCH (05:00)
[2021-09-17 05:36] LABS: ABG Base Excess -4.3 mmol/L (-2.0-3.0); ABG HCO3 20.7 mmol/L (20.0-26.0); ABG Methemoglobin 0.4 % (0.0-1.5); ABG Oxygen Saturation 98.2 % (95.0-99.0); ABG PCO2 37.4 mm Hg; ABG PH 7.36 pH Units (7.350-7.450); ABG PO2 120.3 mm Hg (80.0-90.0)
[2021-09-17 05:57] LABS: Basophils % (Auto) 0.1 % (0.0-1.8); Eosinophils % (Auto) 0.1 % (0.0-4.3); Hemoglobin 12.3 gm/dl (11.8-15.2); Lymphocytes # (Auto) 0.7 K/mm3 (1.2-5.4); Lymphocytes % (Auto) 13.1 % (13.4-35.0); Mean Corpuscular HGB Conc 35 % (32-34); Mean Corpuscular Volume 95 fl (84-94); Monocytes # (Auto) 0.6 K/mm3 (0.0-0.8); Monocytes % (Auto) 11.8 % (0.0-7.3); Red Cell Distribution Width 13.3 % (13.2-15.2)
[2021-09-17] MEDS ORDERED: PHENYTOIN 100 MG CAPSULE.ER PO SCH (06:00)
[2021-09-17 06:08] LABS: Platelet Count 87 K/mm3 (140-440)
[2021-09-17 06:12] LABS: Alanine Aminotransferase 9 units/L (7-56); Albumin 3.1 g/dL (3.9-5); BUN/Creatinine Ratio 19; Blood Urea Nitrogen 15 mg/dL (9-20); Calcium 7.7 mg/dL (8.4-10.2); Hemolysis Index 10
[2021-09-17] MEDS: POTASSIUM CHLORIDE 20 MEQ 20 MEQ/100 ML BAG IV SCH ×2 (07:29→08:31)
[2021-09-17] MEDS ORDERED: carvediloL 6.25 MG TAB PO SCH (08:00)
[2021-09-17] MEDS: PANTOPRAZOLE 80 MG in SODIUM CHLORIDE 0.9% 100 ML IV SCH (08:52)
[2021-09-17] MEDS ORDERED: carvediloL 6.25 MG TAB FEEDTUBE SCH (09:00)
--- NOTE | 2021-09-17 09:18 | Electrocardiograph Report ---
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
[2021-09-17] MEDS ORDERED: MAGNESIUM OXIDE 400 MG TAB PO SCH (10:00)
[2021-09-17] MEDS ORDERED: cefTRIAXone/NS 2 GM/100 ML 2 GM/100 ML BAG IV SCH (10:00)
[2021-09-17] MEDS ORDERED: FAMOTIDINE 20 MG/2 ML INJ IV SCH (10:00)
[2021-09-17] MEDS: FOLIC ACID 1 MG TAB FEEDTUBE SCH (11:50)
[2021-09-17] MEDS: ASPIRIN 81 MG TAB CHEW FEEDTUBE SCH (11:50)
[2021-09-17] MEDS: LOSARTAN 25 MG TAB FEEDTUBE SCH (11:50)
[2021-09-17] MEDS: THIAMINE 100 MG TAB FEEDTUBE SCH (11:50)
[2021-09-17] MEDS: MULTIVITAMIN / MINERAL ORAL LIQUID 15 ML FEEDTUBE SCH (11:50)
[2021-09-17] MEDS: levETIRAcetam 1,500 MG in DEXTROSE 5% IN WATER 100 ML IV SCH ×2 (11:50→22:03)
--- NOTE | 2021-09-17 12:32 | Consultation ---
History of Present Illness Consult date: 09/17/21 History of present illness: 66 y/o male, presumed homeless, admitted with Altered Mental sTate, Hyperthermia, SVT unresponsive to initial therapy, and seizure requiring i ntubation for airway protection. Seizures have halted and temperature is better however patient is still minimally responsive. Currently intubated, not on sedation. Remainder of the history and review is from the chart. Past History Past Medical History: seizures (Alcoholism. pancreatitis. legally blind, anxiety psychosis) Past Surgical History: Other (R knee surgery, left lung injury HIP SURGERY) Social history: smoking, alcohol abuse Family history: hypertension Medications and Allergies Allergies Allergy/AdvReac Type Severity Reaction Status Date / Time olanzapine [From Zyprexa] Allergy Nausea Verified 09/15/21 09:05 Home Medications Medication Instructions Recorded Confirmed Last Taken Type carvediloL [Coreg] 6.25 mg PO BID #60 tablet 12/18/20 03/18/21 Unknown Rx Quetiapine Fumarate [SEROquel] 50 mg PO QHS 30 Days #30 tab 03/17/21 Unknown Rx Calcium Carbonate [Oscal 1250MG 1,250 mg PO BID #60 tablet 03/18/21 Unknown Rx TAB] Magnesium 200 mg PO DAILY #7 tablet 03/27/21 Unknown Rx Multivitamin Tab [Multiple Vitamin 1 each PO DAILY #30 tablet 03/27/21 Unknown Rx TAB (Theragran)] Aspirin EC [Halfprin EC] 81 mg PO QDAY #30 tablet 04/09/21 Unknown Rx Colchicine [Colcrys] 0.6 mg PO BID 3 Days #6 tablet 04/09/21 Unknown Rx Folic Acid [Folvite] 1 mg PO QDAY #30 tablet 04/09/21 Unknown Rx Losartan [Cozaar] 25 mg PO QDAY #30 tablet 04/09/21 Unknown Rx Thiamine [Vitamin B-1] 100 mg PO QDAY #30 tablet 04/09/21 Unknown Rx levETIRAcetam [Keppra TAB] 1,000 mg PO BID 30 Days #120 tablet 04/09/21 Unknown Rx predniSONE [Deltasone] 40 mg PO QDAY 6 Days #9 tablet 04/09/21 Unknown Rx Acetaminophen/Codeine [Tylenol 1 tab PO Q6H PRN #21 tab 04/25/21 Unknown Rx /Codeine # 3 tab] Acetaminophen [Acetaminophen 8 650 mg PO Q8H #30 tab 05/20/21 Unknown Rx Hour] cephALEXin [Keflex] 500 mg PO Q8HR #21 cap 05/20/21 Unknown Rx Ibuprofen [Motrin] 800 mg PO Q8HR PRN #30 tablet 06/11/21 Unknown Rx Cyclobenzaprine [Flexeril] 10 mg PO TID PRN #21 tab 06/13/21 Unknown Rx Naproxen [Naprosyn] 500 mg PO BID #14 tab 06/13/21 Unknown Rx Naproxen 375 mg PO BID 7 Days #14 tab 09/15/21 Unknown Rx Phenytoin [Dilantin] 100 mg PO Q8HR 30 Days #90 capsule 09/15/21 Unknown Rx Active Meds: Active Medications Acetaminophen (Acetaminophen 325 Mg Tab) 650 mg PO Q4H PRN PRN Reason: Pain MILD(1-3)/Fever >100.5/CAAL Albuterol (Albuterol 2.5 Mg/3 Ml Nebu) 2.5 mg IH Q3HRT PRN PRN Reason: Shortness Of Breath Aspirin (Aspirin 81 Mg Tab Chew) 81 mg FEEDTUBE QDAY [facility] Last Admin: 09/17/21 11:50 Dose: 81 mg Calcium Carbonate/Glycine (Calcium Carbonate 1250 Mg Tab) 1,250 mg PO BID DG Famotidine (Famotidine 20 Mg Tab) 20 mg FEEDTUBE BID [facility] Folic Acid (Folic Acid 1 Mg Tab) 1 mg FEEDTUBE QDAY [facility] Last Admin: 09/17/21 11:50 Dose: 1 mg Hydralazine HCl (Hydralazine 20 Mg/1 Ml Inj) 10 mg IV Q6H PRN PRN Reason: Blood Pressure Levetiracetam 1,500 mg/ (Dextrose) 115 mls @ 400 mls/hr IV Q12HR [facility] Last Admin: 09/17/21 11:50 Dose: 400 mls/hr Dextrose/Sodium Chloride (D5ns) 1,000 mls @ 100 mls/hr IV DIRECT [facility] Last Admin: 09/17/21 04:01 Dose: 100 mls/hr Propofol (Diprivan 10 Mg/Ml) 1,000 mg in 100 mls @ 1.869 mls/hr IV TITR DG; Protocol Losartan Potassium (Losartan 25 Mg Tab) 25 mg FEEDTUBE QDAY [facility] Last Admin: 09/17/21 11:50 Dose: Not Given Morphine Sulfate (Morphine 2 Mg/1 Ml Inj) 2 mg IV Q4H PRN PRN Reason: Pain, Moderate (4-6) Morphine Sulfate (Morphine 4 Mg/1 Ml Inj) 4 mg IV Q4H PRN PRN Reason: Pain , Severe (7-10) Ondansetron HCl (Ondansetron 4 Mg/2 Ml Inj) 4 mg IV Q8H PRN PRN Reason: Nausea And Vomiting Phenytoin (Phenytoin 100 Mg/4 Ml Oral.Liqd) 100 mg FEEDTUBE Q8HR [facility] Sodium Chloride (Sodium Chloride 0.9% 10 Ml Flush Syringe) 10 ml IV BID [facility] Last Admin: 09/17/21 11:51 Dose: 10 ml Sodium Chloride (Sodium Chloride 0.9% 10 Ml Flush Syringe) 10 ml IV PRN PRN PRN Reason: LINE FLUSH Thiamine HCl (Thiamine 100 Mg Tab) 100 mg FEEDTUBE QDAY [facility] Last Admin: 09/17/21 11:50 Dose: 100 mg Review of Systems ROS unobtainable: due to endotracheal tube, due to mental status Physical Examination Vital signs: Vital Signs Temp Pulse Resp BP Pulse Ox 107.3 F H 155 H 46 H 115/42 100 09/16/21 16:47 09/16/21 16:47 09/16/21 16:47 09/16/21 16:47 09/16/21 16:47 Results - Laboratory Findings CBC and BMP: 09/17/21 05:16 09/17/21 05:16 ABG ABG pH 7.360 pH Units (7.350-7.450) 09/17/21 05:10 ABG pCO2 37.4 mm Hg 09/17/21 05:10 ABG pO2 120.3 mm Hg (80.0-90.0) H 09/17/21 05:10 ABG O2 Saturation 98.2 % (95.0-99.0) 09/17/21 05:10 PT/INR, D-dimer PT 16.1 Sec. (12.2-14.9) H 09/16/21 19:53 INR 1.16 (0.87-1.13) H 09/16/21 19:53 Abnormal lab findings: Abnormal Labs 07/13/22 07/13/22 07/13/22 16:59 17:10 17:14 Hct MCV 96 H MCH 33 H MCHC Plt Count Lymph % (Auto) [place] % (Auto) 7.9 H Lymph # (Auto) Seg Neutrophils % PT INR ABG pH ABG pO2 ABG O2 Saturation ABG Base Excess ABG Hemoglobin Sodium Potassium Carbon Dioxide Glucose POC Glucose 144 H Lactic Acid Calcium Magnesium Total Protein Albumin Urine WBC (Auto) 59.0 H 09/16/21 09/16/21 09/16/21 17:14 17:14 19:53 Hct MCV MCH MCHC Plt Count Lymph % (Auto) [place] % (Auto) Lymph # (Auto) Seg Neutrophils % PT 16.1 H INR 1.16 H ABG pH ABG pO2 ABG O2 Saturation ABG Base Excess ABG Hemoglobin Sodium 135 L Potassium 5.2 H Carbon Dioxide 16 L Glucose 130 H POC Glucose Lactic Acid 3.20 H* Calcium Magnesium 1.40 L Total Protein Albumin Urine WBC (Auto) 09/16/21 09/17/21 09/17/21 20:00 05:10 05:16 Hct 35.0 L D MCV 95 H MCH 33 H MCHC 35 H Plt Count 87 L Lymph % (Auto) 13.1 L [place] % (Auto) 11.8 H Lymph # (Auto) 0.7 L Seg Neutrophils % 74.9 H PT INR ABG pH 7.333 L ABG pO2 433.9 H 120.3 H ABG O2 Saturation 99.6 H ABG Base Excess -3.5 L -4.3 L ABG Hemoglobin 13.1 L 12.1 L Sodium Potassium Carbon Dioxide Glucose POC Glucose Lactic Acid Calcium Magnesium Total Protein Albumin Urine WBC (Auto) 09/17/21 05:16 Hct MCV MCH MCHC Plt Count Lymph % (Auto) [place] % (Auto) Lymph # (Auto) Seg Neutrophils % PT INR ABG pH ABG pO2 ABG O2 Saturation ABG Base Excess ABG Hemoglobin Sodium Potassium 2.9 L* D Carbon Dioxide 21 L Glucose 108 H POC Glucose Lactic Acid Calcium 7.7 L D Magnesium Total Protein 5.4 L D Albumin 3.1 L Urine WBC (Auto) - Diagnostic Findings Chest x-ray: image reviewed Assessment and Plan 66 y/o male with acute respiratory failure secondary to seizures, likely prompted by hyperthermia (multifactorial including drugs). 1. Continue to monitor off sedation 2. There was question of GI bleed but no active bleeding seen and stable H/H, will stop PPI and octreotide 3. Does not appear to infectious causes for encephalopathy and or fever, will stop abx therapy 4. Agree with EEG for seizures, especially given lack of improvement in mental state. Tele neuro seeing patient 5. Feed patient 6. Cards consulted. Prior echo shows and EF of 30%, repeating today. cct 31 minutes
--- NOTE | 2021-09-17 14:14 | Consultation ---
History of Present Illness Consult date: 09/17/21 Requesting physician: GARRISON BERMEO Consult reason: other (SVT) History of present illness: Patient is a 66-year-old homeless male with past medical history of of asthma, alcoholism, pancreatitis, legally blind, and seizures who was brought to the ED due to altered mental status yesterday. History is taken from documentation due to patient being intubated at time of interview. EMS was notified about eddi cabrera's mental status and patient transferred to ED where he was put on nonrebreather, confused and not responding. Patient was found to be in SVT, having seizures, and also found to have temperature of 107.3 F. Patient was intubated for airway protection. Patient's temperature has improved and patient converted to sinus rhythm. Patient remains intubated and unresponsive. Patient is previously unknown to our practice. Cardiology is consulted for SVT Past History Past Medical History: seizures (Alcoholism. pancreatitis. legally blind, anxiety psychosis) Past Surgical History: Other (R knee surgery, left lung injury HIP SURGERY) Social history: smoking, alcohol abuse Family history: hypertension Medications and Allergies Allergies Allergy/AdvReac Type Severity Reaction Status Date / Time olanzapine [From Zyprexa] Allergy Nausea Verified 09/15/21 09:05 Home Medications Medication Instructions Recorded Confirmed Last Taken Type carvediloL [Coreg] 6.25 mg PO BID #60 tablet 12/18/20 03/18/21 Unknown Rx Quetiapine Fumarate [SEROquel] 50 mg PO QHS 30 Days #30 tab 03/17/21 Unknown Rx Calcium Carbonate [Oscal 1250MG 1,250 mg PO BID #60 tablet 03/18/21 Unknown Rx TAB] Magnesium 200 mg PO DAILY #7 tablet 03/27/21 Unknown Rx Multivitamin Tab [Multiple Vitamin 1 each PO DAILY #30 tablet 03/27/21 Unknown Rx TAB (Theragran)] Aspirin EC [Halfprin EC] 81 mg PO QDAY #30 tablet 04/09/21 Unknown Rx Colchicine [Colcrys] 0.6 mg PO BID 3 Days #6 tablet 04/09/21 Unknown Rx Folic Acid [Folvite] 1 mg PO QDAY #30 tablet 04/09/21 Unknown Rx Losartan [Cozaar] 25 mg PO QDAY #30 tablet 04/09/21 Unknown Rx Thiamine [Vitamin B-1] 100 mg PO QDAY #30 tablet 04/09/21 Unknown Rx levETIRAcetam [Keppra TAB] 1,000 mg PO BID 30 Days #120 tablet 04/09/21 Unknown Rx predniSONE [Deltasone] 40 mg PO QDAY 6 Days #9 tablet 04/09/21 Unknown Rx Acetaminophen/Codeine [Tylenol 1 tab PO Q6H PRN #21 tab 04/25/21 Unknown Rx /Codeine # 3 tab] Acetaminophen [Acetaminophen 8 650 mg PO Q8H #30 tab 05/20/21 Unknown Rx Hour] cephALEXin [Keflex] 500 mg PO Q8HR #21 cap 05/20/21 Unknown Rx Ibuprofen [Motrin] 800 mg PO Q8HR PRN #30 tablet 06/11/21 Unknown Rx Cyclobenzaprine [Flexeril] 10 mg PO TID PRN #21 tab 06/13/21 Unknown Rx Naproxen [Naprosyn] 500 mg PO BID #14 tab 06/13/21 Unknown Rx Naproxen 375 mg PO BID 7 Days #14 tab 09/15/21 Unknown Rx Phenytoin [Dilantin] 100 mg PO Q8HR 30 Days #90 capsule 09/15/21 Unknown Rx Active Meds: Active Medications Acetaminophen (Acetaminophen 325 Mg Tab) 650 mg PO Q4H PRN PRN Reason: Pain MILD(1-3)/Fever >100.5/CAAL Albuterol (Albuterol 2.5 Mg/3 Ml Nebu) 2.5 mg IH Q3HRT PRN PRN Reason: Shortness Of Breath Aspirin (Aspirin 81 Mg Tab Chew) 81 mg FEEDTUBE QDAY [facility] Last Admin: 09/17/21 11:50 Dose: 81 mg Calcium Carbonate/Glycine (Calcium Carbonate 1250 Mg Tab) 1,250 mg PO BID [facility] Famotidine (Famotidine 20 Mg Tab) 20 mg FEEDTUBE BID [facility] Folic Acid (Folic Acid 1 Mg Tab) 1 mg FEEDTUBE QDAY [facility] Last Admin: 09/17/21 11:50 Dose: 1 mg Hydralazine HCl (Hydralazine 20 Mg/1 Ml Inj) 10 mg IV Q6H PRN PRN Reason: Blood Pressure Levetiracetam 1,500 mg/ (Dextrose) 115 mls @ 400 mls/hr IV Q12HR [facility] Last Admin: 09/17/21 11:50 Dose: 400 mls/hr Dextrose/Sodium Chloride (D5ns) 1,000 mls @ 100 mls/hr IV DIRECT DG Last Infusion: 09/17/21 13:17 Dose: 0 mls/hr Propofol (Diprivan 10 Mg/Ml) 1,000 mg in 100 mls @ 1.869 mls/hr IV TITR DG; Protocol Losartan Potassium (Losartan 25 Mg Tab) 25 mg FEEDTUBE QDAY [facility] Last Admin: 09/17/21 11:50 Dose: Not Given Morphine Sulfate (Morphine 2 Mg/1 Ml Inj) 2 mg IV Q4H PRN PRN Reason: Pain, Moderate (4-6) Morphine Sulfate (Morphine 4 Mg/1 Ml Inj) 4 mg IV Q4H PRN PRN Reason: Pain , Severe (7-10) Ondansetron HCl (Ondansetron 4 Mg/2 Ml Inj) 4 mg IV Q8H PRN PRN Reason: Nausea And Vomiting Phenytoin (Phenytoin 100 Mg/4 Ml Oral.Liqd) 100 mg FEEDTUBE Q8HR [facility] Sodium Chloride (Sodium Chloride 0.9% 10 Ml Flush Syringe) 10 ml IV BID [facility] Last Admin: 09/17/21 11:51 Dose: 10 ml Sodium Chloride (Sodium Chloride 0.9% 10 Ml Flush Syringe) 10 ml IV PRN PRN PRN Reason: LINE FLUSH Thiamine HCl (Thiamine 100 Mg Tab) 100 mg FEEDTUBE QDAY [facility] Last Admin: 09/17/21 11:50 Dose: 100 mg Review of Systems ROS unobtainable: due to endotracheal tube, due to mental status Physical Examination Vital Signs Temp Pulse Resp BP Pulse Ox 107.3 F H 155 H 46 H 115/42 100 09/16/21 16:47 09/16/21 16:47 09/16/21 16:47 09/16/21 16:47 09/16/21 16:47 General appearance: other (Intubated) HEENT: Positive: Mucus Membranes Dry Neck: Positive: trachea midline Cardiac: Positive: Reg Rate and Rhythm Lungs: Positive: Ventilated Respirations Neuro: Positive: Other (Unable to assess) Abdomen: Positive: Soft Skin: Negative: Rash, Suspicious Lesions, Ulceration Extremities: Present: upper extr. pulses. Absent: edema Results 09/17/21 05:16 09/17/21 05:16 Cardiac Enzymes 09/16/21 09/16/21 09/16/21 Range/Units 16:59 17:10 17:13 WBC (4.5-11.0) K/mm3 RBC (3.65-5.03) M/mm3 Hgb (11.8-15.2) gm/dl Hct (35.5-45.6) % MCV (84-94) fl MCH (28-32) pg MCHC (32-34) % RDW (13.2-15.2) % Plt Count (140-440) K/mm3 Lymph % (Auto) (13.4-35.0) % Alcorn % (Auto) (0.0-7.3) % Eos % (Auto) (0.0-4.3) % Baso % (Auto) (0.0-1.8) % Lymph # (Auto) (1.2-5.4) K/mm3 Alcorn # (Auto) (0.0-0.8) K/mm3 Eos # (Auto) (0.0-0.4) K/mm3 Baso # (Auto) (0.0-0.1) K/mm3 Seg Neutrophils % (40.0-70.0) % Seg Neutrophils # (1.8-7.7) K/mm3 PT (12.2-14.9) Sec. INR (0.87-1.13) APTT (24.2-36.6) Sec. ABG pH (7.350-7.450) pH Units ABG pCO2 mm Hg ABG pO2 (80.0-90.0) mm Hg ABG HCO3 (20.0-26.0) mmol/L ABG O2 Saturation (95.0-99.0) % ABG O2 Content (0.0-44) ABG Base Excess (-2.0-3.0) mmol/L ABG Hemoglobin (14.0-18.0) gm/dl ABG Carboxyhemoglobin (0.0-5.0) % ABG Methemoglobin (0.0-1.5) % Oxyhemoglobin (95.0-99.0) % FiO2 % Sodium (137-145) mmol/L Potassium (3.6-5.0) mmol/L Chloride (98-107) mmol/L Carbon Dioxide (22-30) mmol/L Anion Gap mmol/L BUN (9-20) mg/dL Creatinine (0.8-1.3) mg/dL Estimated GFR ml/min BUN/Creatinine Ratio % Glucose (75-100) mg/dL POC Glucose 144 H (70-105) mg/dL Lactic Acid (0.7-2.0) mmol/L Calcium (8.4-10.2) mg/dL Magnesium (1.7-2.3) mg/dL Total Bilirubin (0.1-1.2) mg/dL AST (5-40) units/L ALT (7-56) units/L Alkaline Phosphatase (35-129) units/L Total Creatine Kinase (55-170) units/L Troponin T (0.00-0.029) ng/mL NT-Pro-B Natriuret Pep (0-900) pg/mL Total Protein (6.3-8.2) g/dL Albumin (3.9-5) g/dL Albumin/Globulin Ratio % Urine Color (Yellow) Urine Turbidity Cloudy (Clear) Urine pH 5.0 (5.0-7.0) Ur Specific Mullins 1.023 (1.003-1.030) Urine Protein 100 mg/dl (Negative) mg/dL Urine Glucose (UA) Neg (Negative) mg/dL Urine Ketones 80 (Negative) mg/dL Urine Blood Sm (Negative) Urine Nitrite Neg (Negative) Urine Bilirubin Neg (Negative) Urine Urobilinogen < 2.0 (<2.0) mg/dL Ur Leukocyte Esterase Mod (Negative) Urine WBC (Auto) 59.0 H (0.0-6.0) /HPF Urine RBC (Auto) 8.0 (0.0-6.0) /HPF U Epithel Cells (Auto) 1.0 (0-13.0) /HPF Urine Bacteria (Auto) 2+ (Negative) /HPF Hyaline Casts 152 /LPF Urine Mucus 3+ /HPF Urine Yeast (Budding) Not Reportable Urine Opiates Screen Presumptive negative Urine Methadone Screen Presumptive negative Ur Barbiturates Screen Presumptive negative Ur Phencyclidine Scrn Presumptive negative Ur Amphetamines Screen Presumptive positive U Benzodiazepines Scrn Presumptive negative Urine Cocaine Screen Presumptive negative U Marijuana (THC) Screen Presumptive negative Drugs of Abuse Note Disclamer Plasma/Serum Alcohol (0-0.07) % 09/16/21 09/16/21 09/16/21 Range/Units 17:14 17:14 17:14 WBC 8.4 (4.5-11.0) K/mm3 RBC 4.47 (3.65-5.03) M/mm3 Hgb 14.7 (11.8-15.2) gm/dl Hct 43.0 (35.5-45.6) % MCV 96 H (84-94) fl MCH 33 H (28-32) pg MCHC 34 (32-34) % RDW 13.3 (13.2-15.2) % Plt Count 238 (140-440) K/mm3 Lymph % (Auto) 33.1 (13.4-35.0) % Alcorn % (Auto) 7.9 H (0.0-7.3) % Eos % (Auto) 0.5 (0.0-4.3) % Baso % (Auto) 0.8 (0.0-1.8) % Lymph # (Auto) 2.8 (1.2-5.4) K/mm3 Alcorn # (Auto) 0.7 (0.0-0.8) K/mm3 Eos # (Auto) 0.0 (0.0-0.4) K/mm3 Baso # (Auto) 0.1 (0.0-0.1) K/mm3 Seg Neutrophils % 57.7 (40.0-70.0) % Seg Neutrophils # 4.9 (1.8-7.7) K/mm3 PT (12.2-14.9) Sec. INR (0.87-1.13) APTT (24.2-36.6) Sec. ABG pH (7.350-7.450) pH Units ABG pCO2 mm Hg ABG pO2 (80.0-90.0) mm Hg ABG HCO3 (20.0-26.0) mmol/L ABG O2 Saturation (95.0-99.0) % ABG O2 Content (0.0-44) ABG Base Excess (-2.0-3.0) mmol/L ABG Hemoglobin (14.0-18.0) gm/dl ABG Carboxyhemoglobin (0.0-5.0) % ABG Methemoglobin (0.0-1.5) % Oxyhemoglobin (95.0-99.0) % FiO2 % Sodium 135 L (137-145) mmol/L Potassium 5.2 H (3.6-5.0) mmol/L Chloride 98.8 (98-107) mmol/L Carbon Dioxide 16 L (22-30) mmol/L Anion Gap 25 mmol/L BUN 15 (9-20) mg/dL Creatinine 1.1 (0.8-1.3) mg/dL Estimated GFR > 60 ml/min BUN/Creatinine Ratio 14 % Glucose 130 H (75-100) mg/dL POC Glucose (70-105) mg/dL Lactic Acid 3.20 H* (0.7-2.0) mmol/L Calcium 9.4 (8.4-10.2) mg/dL Magnesium 1.40 L (1.7-2.3) mg/dL Total Bilirubin 1.00 (0.1-1.2) mg/dL AST 37 (5-40) units/L ALT 10 (7-56) units/L Alkaline Phosphatase 77 (35-129) units/L Total Creatine Kinase 142 (55-170) units/L Troponin T < 0.010 (0.00-0.029) ng/mL NT-Pro-B Natriuret Pep 342.9 (0-900) pg/mL Total Protein 7.0 (6.3-8.2) g/dL Albumin 4.2 (3.9-5) g/dL Albumin/Globulin Ratio 1.5 % Urine Color (Yellow) Urine Turbidity (Clear) Urine pH (5.0-7.0) Ur Specific Mullins (1.003-1.030) Urine Protein (Negative) mg/dL Urine Glucose (UA) (Negative) mg/dL Urine Ketones (Negative) mg/dL Urine Blood (Negative) Urine Nitrite (Negative) Urine Bilirubin (Negative) Urine Urobilinogen (<2.0) mg/dL Ur Leukocyte Esterase (Negative) Urine WBC (Auto) (0.0-6.0) /HPF Urine RBC (Auto) (0.0-6.0) /HPF U Epithel Cells (Auto) (0-13.0) /HPF Urine Bacteria (Auto) (Negative) /HPF Hyaline Casts /LPF Urine Mucus /HPF Urine Yeast (Budding) Urine Opiates Screen Urine Methadone Screen Ur Barbiturates Screen Ur Phencyclidine Scrn Ur Amphetamines Screen U Benzodiazepines Scrn Urine Cocaine Screen U Marijuana (THC) Screen Drugs of Abuse Note Plasma/Serum Alcohol (0-0.07) % 09/16/21 09/16/21 09/16/21 Range/Units 18:17 19:53 20:00 WBC (4.5-11.0) K/mm3 RBC (3.65-5.03) M/mm3 Hgb (11.8-15.2) gm/dl Hct (35.5-45.6) % MCV (84-94) fl MCH (28-32) pg MCHC (32-34) % RDW (13.2-15.2) % Plt Count (140-440) K/mm3 Lymph % (Auto) (13.4-35.0) % Alcorn % (Auto) (0.0-7.3) % Eos % (Auto) (0.0-4.3) % Baso % (Auto) (0.0-1.8) % Lymph # (Auto) (1.2-5.4) K/mm3 Alcorn # (Auto) (0.0-0.8) K/mm3 Eos # (Auto) (0.0-0.4) K/mm3 Baso # (Auto) (0.0-0.1) K/mm3 Seg Neutrophils % (40.0-70.0) % Seg Neutrophils # (1.8-7.7) K/mm3 PT 16.1 H (12.2-14.9) Sec. INR 1.16 H (0.87-1.13) APTT 25.8 (24.2-36.6) Sec. ABG pH 7.333 L (7.350-7.450) pH Units ABG pCO2 42.8 mm Hg ABG pO2 433.9 H (80.0-90.0) mm Hg ABG HCO3 22.2 (20.0-26.0) mmol/L ABG O2 Saturation 99.6 H (95.0-99.0) % ABG O2 Content 19.2 (0.0-44) ABG Base Excess -3.5 L (-2.0-3.0) mmol/L ABG Hemoglobin 13.1 L (14.0-18.0) gm/dl ABG Carboxyhemoglobin 1.1 (0.0-5.0) % ABG Methemoglobin 0.8 (0.0-1.5) % Oxyhemoglobin 97.7 (95.0-99.0) % FiO2 100 % Sodium (137-145) mmol/L Potassium (3.6-5.0) mmol/L Chloride (98-107) mmol/L Carbon Dioxide (22-30) mmol/L Anion Gap mmol/L BUN (9-20) mg/dL Creatinine (0.8-1.3) mg/dL Estimated GFR ml/min BUN/Creatinine Ratio % Glucose (75-100) mg/dL POC Glucose (70-105) mg/dL Lactic Acid (0.7-2.0) mmol/L Calcium (8.4-10.2) mg/dL Magnesium (1.7-2.3) mg/dL Total Bilirubin (0.1-1.2) mg/dL AST (5-40) units/L ALT (7-56) units/L Alkaline Phosphatase (35-129) units/L Total Creatine Kinase (55-170) units/L Troponin T (0.00-0.029) ng/mL NT-Pro-B Natriuret Pep (0-900) pg/mL Total Protein (6.3-8.2) g/dL Albumin (3.9-5) g/dL Albumin/Globulin Ratio % Urine Color (Yellow) Urine Turbidity (Clear) Urine pH (5.0-7.0) Ur Specific Mullins (1.003-1.030) Urine Protein (Negative) mg/dL Urine Glucose (UA) (Negative) mg/dL Urine Ketones (Negative) mg/dL Urine Blood (Negative) Urine Nitrite (Negative) Urine Bilirubin (Negative) Urine Urobilinogen (<2.0) mg/dL Ur Leukocyte Esterase (Negative) Urine WBC (Auto) (0.0-6.0) /HPF Urine RBC (Auto) (0.0-6.0) /HPF U Epithel Cells (Auto) (0-13.0) /HPF Urine Bacteria (Auto) (Negative) /HPF Hyaline Casts /LPF Urine Mucus /HPF Urine Yeast (Budding) Urine Opiates Screen Urine Methadone Screen Ur Barbiturates Screen Ur Phencyclidine Scrn Ur Amphetamines Screen U Benzodiazepines Scrn Urine Cocaine Screen U Marijuana (THC) Screen Drugs of Abuse Note Plasma/Serum Alcohol < 0.01 (0-0.07) % 09/16/21 09/17/21 09/17/21 Range/Units 22:50 03:55 05:10 WBC (4.5-11.0) K/mm3 RBC (3.65-5.03) M/mm3 Hgb (11.8-15.2) gm/dl Hct (35.5-45.6) % MCV (84-94) fl MCH (28-32) pg MCHC (32-34) % RDW (13.2-15.2) % Plt Count (140-440) K/mm3 Lymph % (Auto) (13.4-35.0) % Alcorn % (Auto) (0.0-7.3) % Eos % (Auto) (0.0-4.3) % Baso % (Auto) (0.0-1.8) % Lymph # (Auto) (1.2-5.4) K/mm3 Alcorn # (Auto) (0.0-0.8) K/mm3 Eos # (Auto) (0.0-0.4) K/mm3 Baso # (Auto) (0.0-0.1) K/mm3 Seg Neutrophils % (40.0-70.0) % Seg Neutrophils # (1.8-7.7) K/mm3 PT (12.2-14.9) Sec. INR (0.87-1.13) APTT (24.2-36.6) Sec. ABG pH 7.360 (7.350-7.450) pH Units ABG pCO2 37.4 mm Hg ABG pO2 120.3 H (80.0-90.0) mm Hg ABG HCO3 20.7 (20.0-26.0) mmol/L ABG O2 Saturation 98.2 (95.0-99.0) % ABG O2 Content 16.5 (0.0-44) ABG Base Excess -4.3 L (-2.0-3.0) mmol/L ABG Hemoglobin 12.1 L (14.0-18.0) gm/dl ABG Carboxyhemoglobin 1.6 (0.0-5.0) % ABG Methemoglobin 0.4 (0.0-1.5) % Oxyhemoglobin 96.2 (95.0-99.0) % FiO2 30 % Sodium (137-145) mmol/L Potassium (3.6-5.0) mmol/L Chloride (98-107) mmol/L Carbon Dioxide (22-30) mmol/L Anion Gap mmol/L BUN (9-20) mg/dL Creatinine (0.8-1.3) mg/dL Estimated GFR ml/min BUN/Creatinine Ratio % Glucose (75-100) mg/dL POC Glucose 87 (70-105) mg/dL Lactic Acid 0.80 (0.7-2.0) mmol/L Calcium (8.4-10.2) mg/dL Magnesium (1.7-2.3) mg/dL Total Bilirubin (0.1-1.2) mg/dL AST (5-40) units/L ALT (7-56) units/L Alkaline Phosphatase (35-129) units/L Total Creatine Kinase (55-170) units/L Troponin T (0.00-0.029) ng/mL NT-Pro-B Natriuret Pep (0-900) pg/mL Total Protein (6.3-8.2) g/dL Albumin (3.9-5) g/dL Albumin/Globulin Ratio % Urine Color (Yellow) Urine Turbidity (Clear) Urine pH (5.0-7.0) Ur Specific Mullins (1.003-1.030) Urine Protein (Negative) mg/dL Urine Glucose (UA) (Negative) mg/dL Urine Ketones (Negative) mg/dL Urine Blood (Negative) Urine Nitrite (Negative) Urine Bilirubin (Negative) Urine Urobilinogen (<2.0) mg/dL Ur Leukocyte Esterase (Negative) Urine WBC (Auto) (0.0-6.0) /HPF Urine RBC (Auto) (0.0-6.0) /HPF U Epithel Cells (Auto) (0-13.0) /HPF Urine Bacteria (Auto) (Negative) /HPF Hyaline Casts /LPF Urine Mucus /HPF Urine Yeast (Budding) Urine Opiates Screen Urine Methadone Screen Ur Barbiturates Screen Ur Phencyclidine Scrn Ur Amphetamines Screen U Benzodiazepines Scrn Urine Cocaine Screen U Marijuana (THC) Screen Drugs of Abuse Note Plasma/Serum Alcohol (0-0.07) % 09/17/21 09/17/21 09/17/21 Range/Units 05:16 05:16 05:16 WBC 5.1 (4.5-11.0) K/mm3 RBC 3.70 (3.65-5.03) M/mm3 Hgb 12.3 (11.8-15.2) gm/dl Hct 35.0 L D (35.5-45.6) % MCV 95 H (84-94) fl MCH 33 H (28-32) pg MCHC 35 H (32-34) % RDW 13.3 (13.2-15.2) % Plt Count 87 L (140-440) K/mm3 Lymph % (Auto) 13.1 L (13.4-35.0) % Alcorn % (Auto) 11.8 H (0.0-7.3) % Eos % (Auto) 0.1 (0.0-4.3) % Baso % (Auto) 0.1 (0.0-1.8) % Lymph # (Auto) 0.7 L (1.2-5.4) K/mm3 Alcorn # (Auto) 0.6 (0.0-0.8) K/mm3 Eos # (Auto) 0.0 (0.0-0.4) K/mm3 Baso # (Auto) 0.0 (0.0-0.1) K/mm3 Seg Neutrophils % 74.9 H (40.0-70.0) % Seg Neutrophils # 3.8 (1.8-7.7) K/mm3 PT (12.2-14.9) Sec. INR (0.87-1.13) APTT (24.2-36.6) Sec. ABG pH (7.350-7.450) pH Units ABG pCO2 mm Hg ABG pO2 (80.0-90.0) mm Hg ABG HCO3 (20.0-26.0) mmol/L ABG O2 Saturation (95.0-99.0) % ABG O2 Content (0.0-44) ABG Base Excess (-2.0-3.0) mmol/L ABG Hemoglobin (14.0-18.0) gm/dl ABG Carboxyhemoglobin (0.0-5.0) % ABG Methemoglobin (0.0-1.5) % Oxyhemoglobin (95.0-99.0) % FiO2 % Sodium 137 (137-145) mmol/L Potassium 2.9 L* D (3.6-5.0) mmol/L Chloride 106.2 (98-107) mmol/L Carbon Dioxide 21 L (22-30) mmol/L Anion Gap 13 mmol/L BUN 15 (9-20) mg/dL Creatinine 0.8 (0.8-1.3) mg/dL Estimated GFR > 60 ml/min BUN/Creatinine Ratio 19 % Glucose 108 H (75-100) mg/dL POC Glucose (70-105) mg/dL Lactic Acid (0.7-2.0) mmol/L Calcium 7.7 L D (8.4-10.2) mg/dL Magnesium 1.90 (1.7-2.3) mg/dL Total Bilirubin 0.70 (0.1-1.2) mg/dL AST 21 (5-40) units/L ALT 9 (7-56) units/L Alkaline Phosphatase 62 (35-129) units/L Total Creatine Kinase (55-170) units/L Troponin T (0.00-0.029) ng/mL NT-Pro-B Natriuret Pep (0-900) pg/mL Total Protein 5.4 L D (6.3-8.2) g/dL Albumin 3.1 L (3.9-5) g/dL Albumin/Globulin Ratio 1.3 % Urine Color (Yellow) Urine Turbidity (Clear) Urine pH (5.0-7.0) Ur Specific Mullins (1.003-1.030) Urine Protein (Negative) mg/dL Urine Glucose (UA) (Negative) mg/dL Urine Ketones (Negative) mg/dL Urine Blood (Negative) Urine Nitrite (Negative) Urine Bilirubin (Negative) Urine Urobilinogen (<2.0) mg/dL Ur Leukocyte Esterase (Negative) Urine WBC (Auto) (0.0-6.0) /HPF Urine RBC (Auto) (0.0-6.0) /HPF U Epithel Cells (Auto) (0-13.0) /HPF Urine Bacteria (Auto) (Negative) /HPF Hyaline Casts /LPF Urine Mucus /HPF Urine Yeast (Budding) Urine Opiates Screen Urine Methadone Screen Ur Barbiturates Screen Ur Phencyclidine Scrn Ur Amphetamines Screen U Benzodiazepines Scrn Urine Cocaine Screen U Marijuana (THC) Screen Drugs of Abuse Note Plasma/Serum Alcohol (0-0.07) % Coagulation 09/16/21 Range/Units 19:53 PT 16.1 H (12.2-14.9) Sec. INR 1.16 H (0.87-1.13) APTT 25.8 (24.2-36.6) Sec. CBC 09/16/21 09/17/21 Range/Units 17:14 05:16 WBC 8.4 5.1 (4.5-11.0) K/mm3 RBC 4.47 3.70 (3.65-5.03) M/mm3 Hgb 14.7 12.3 (11.8-15.2) gm/dl Hct 43.0 35.0 L D (35.5-45.6) % Plt Count 238 87 L (140-440) K/mm3 Lymph # (Auto) 2.8 0.7 L (1.2-5.4) K/mm3 Alcorn # (Auto) 0.7 0.6 (0.0-0.8) K/mm3 Eos # (Auto) 0.0 0.0 (0.0-0.4) K/mm3 Baso # (Auto) 0.1 0.0 (0.0-0.1) K/mm3 Comprehensive Metabolic Panel 09/16/21 09/17/21 Range/Units 17:14 05:16 Sodium 135 L 137 (137-145) mmol/L Potassium 5.2 H 2.9 L* D (3.6-5.0) mmol/L Chloride 98.8 106.2 (98-107) mmol/L Carbon Dioxide 16 L 21 L (22-30) mmol/L BUN 15 15 (9-20) mg/dL Creatinine 1.1 0.8 (0.8-1.3) mg/dL Glucose 130 H 108 H (75-100) mg/dL Calcium 9.4 7.7 L D (8.4-10.2) mg/dL AST 37 21 (5-40) units/L ALT 10 9 (7-56) units/L Alkaline Phosphatase 77 62 (35-129) units/L Total Protein 7.0 5.4 L D (6.3-8.2) g/dL Albumin 4.2 3.1 L (3.9-5) g/dL - Imaging and Cardiology Echo: pending, report reviewed EKG: pending, report reviewed EKG interpretations - Telemetry EKG Rhythm: Sinus Rhythm - EKG Sinus rhythms and dysrhythmias: sinus rhythm Assessment and Plan Patient is a 66-year-old homeless male with past medical history of of asthma, alcoholism, pancreatitis, legally blind, and seizures who was brought to the ED due to altered mental status yesterday AMS-neurology follow Acute respiratory failure-pulmonology following SVT versus a flutter Seizures Malignant hyperthermia History of alcoholism History of asthma Cardiomyopathy Positive for amphetamines Echo 12/15/2020-EF 30 to 35%. Left ventricle is mildly dilated. Severe hypokinesis is noted on the whole apex with a relative hyperdynamic base for suggestive of stress cardiomyopathy. Left atrium is mildly dilated. Right ventricular systolic function is normal. Ascending aorta mildly dilated Plan: Poor EKG SVT versus a flutter rate 175. Borderline ST depression in the anterior leads Repeat EKG. Troponins negative Telemetry reviewed patient currently in sinus rhythm BNP negative exam patient appears euvolemic on exam Suspect SVT as a result of amphetamines and malignant hyperthermia Telemetry reviewed patient currently in sinus rhythm Due to amphetamine use no beta-blockers at this time Will hold on calcium channel blockers for due to patient having soft blood pressure Echo pending Creatinine kinase pending Patient seen in conjunction with Dr. Potter who agrees with plan of care - Patient Problems (1) ETOH abuse Current Visit: No Status: Acute (2) Hyponatremia Current Visit: No Status: Acute (3) Seizures Current Visit: Yes Status: Acute (4) Alcohol abuse Current Visit: No Status: Chronic (5) Malignant hyperthermia Current Visit: Yes Status: Acute (6) Acute respiratory failure Current Visit: Yes Status: Acute (7) SVT (supraventricular tachycardia) Current Visit: Yes Status: Acute (8) Hypokalemia Current Visit: No Status: Acute (9) Lactic acidosis Current Visit: Yes Status: Acute
--- NOTE | 2021-09-17 14:36 | Consultation ---
History of Present Illness Consult date: 09/17/21 Reason for Consult: Seizures Chief complaint: Seizures History of present illness: 66 yo male seizure d/o, substance abuse, who presents with hyperthermia (107F) with seizure activity. Patient was seen by teleneurology in the ED who recommended midazolam. Initiated on ativan and versed. Fever is controlled. Past History Past Medical History: seizures (Alcoholism. pancreatitis. legally blind, anxiety psychosis) Past Surgical History: Other (R knee surgery, left lung injury HIP SURGERY) Social history: smoking, alcohol abuse Family history: hypertension Medications and Allergies Allergies Allergy/AdvReac Type Severity Reaction Status Date / Time olanzapine [From Zyprexa] Allergy Nausea Verified 09/15/21 09:05 Home Medications Medication Instructions Recorded Confirmed Last Taken Type carvediloL [Coreg] 6.25 mg PO BID #60 tablet 12/18/20 03/18/21 Unknown Rx Quetiapine Fumarate [SEROquel] 50 mg PO QHS 30 Days #30 tab 03/17/21 Unknown Rx Calcium Carbonate [Oscal 1250MG 1,250 mg PO BID #60 tablet 03/18/21 Unknown Rx TAB] Magnesium 200 mg PO DAILY #7 tablet 03/27/21 Unknown Rx Multivitamin Tab [Multiple Vitamin 1 each PO DAILY #30 tablet 03/27/21 Unknown Rx TAB (Theragran)] Aspirin EC [Halfprin EC] 81 mg PO QDAY #30 tablet 04/09/21 Unknown Rx Colchicine [Colcrys] 0.6 mg PO BID 3 Days #6 tablet 04/09/21 Unknown Rx Folic Acid [Folvite] 1 mg PO QDAY #30 tablet 04/09/21 Unknown Rx Losartan [Cozaar] 25 mg PO QDAY #30 tablet 04/09/21 Unknown Rx Thiamine [Vitamin B-1] 100 mg PO QDAY #30 tablet 04/09/21 Unknown Rx levETIRAcetam [Keppra TAB] 1,000 mg PO BID 30 Days #120 tablet 04/09/21 Unknown Rx predniSONE [Deltasone] 40 mg PO QDAY 6 Days #9 tablet 04/09/21 Unknown Rx Acetaminophen/Codeine [Tylenol 1 tab PO Q6H PRN #21 tab 04/25/21 Unknown Rx /Codeine # 3 tab] Acetaminophen [Acetaminophen 8 650 mg PO Q8H #30 tab 05/20/21 Unknown Rx Hour] cephALEXin [Keflex] 500 mg PO Q8HR #21 cap 05/20/21 Unknown Rx Ibuprofen [Motrin] 800 mg PO Q8HR PRN #30 tablet 06/11/21 Unknown Rx Cyclobenzaprine [Flexeril] 10 mg PO TID PRN #21 tab 06/13/21 Unknown Rx Naproxen [Naprosyn] 500 mg PO BID #14 tab 06/13/21 Unknown Rx Naproxen 375 mg PO BID 7 Days #14 tab 09/15/21 Unknown Rx Phenytoin [Dilantin] 100 mg PO Q8HR 30 Days #90 capsule 09/15/21 Unknown Rx Active Meds: Active Medications Acetaminophen (Acetaminophen 325 Mg Tab) 650 mg PO Q4H PRN PRN Reason: Pain MILD(1-3)/Fever >100.5/CAAL Albuterol (Albuterol 2.5 Mg/3 Ml Nebu) 2.5 mg IH Q3HRT PRN PRN Reason: Shortness Of Breath Aspirin (Aspirin 81 Mg Tab Chew) 81 mg FEEDTUBE QDAY [facility] Last Admin: 09/17/21 11:50 Dose: 81 mg Calcium Carbonate/Glycine (Calcium Carbonate 1250 Mg Tab) 1,250 mg PO BID DG Famotidine (Famotidine 20 Mg Tab) 20 mg FEEDTUBE BID [facility] Folic Acid (Folic Acid 1 Mg Tab) 1 mg FEEDTUBE QDAY [facility] Last Admin: 09/17/21 11:50 Dose: 1 mg Hydralazine HCl (Hydralazine 20 Mg/1 Ml Inj) 10 mg IV Q6H PRN PRN Reason: Blood Pressure Levetiracetam 1,500 mg/ (Dextrose) 115 mls @ 400 mls/hr IV Q12HR [facility] Last Admin: 09/17/21 11:50 Dose: 400 mls/hr Dextrose/Sodium Chloride (D5ns) 1,000 mls @ 100 mls/hr IV DIRECT [facility] Last Infusion: 09/17/21 13:17 Dose: 0 mls/hr Propofol (Diprivan 10 Mg/Ml) 1,000 mg in 100 mls @ 1.869 mls/hr IV TITR DG; Protocol Losartan Potassium (Losartan 25 Mg Tab) 25 mg FEEDTUBE QDAY [facility] Last Admin: 09/17/21 11:50 Dose: Not Given Morphine Sulfate (Morphine 2 Mg/1 Ml Inj) 2 mg IV Q4H PRN PRN Reason: Pain, Moderate (4-6) Morphine Sulfate (Morphine 4 Mg/1 Ml Inj) 4 mg IV Q4H PRN PRN Reason: Pain , Severe (7-10) Ondansetron HCl (Ondansetron 4 Mg/2 Ml Inj) 4 mg IV Q8H PRN PRN Reason: Nausea And Vomiting Phenytoin (Phenytoin 100 Mg/4 Ml Oral.Liqd) 100 mg FEEDTUBE Q8HR DG Sodium Chloride (Sodium Chloride 0.9% 10 Ml Flush Syringe) 10 ml IV BID [facility] Last Admin: 09/17/21 11:51 Dose: 10 ml Sodium Chloride (Sodium Chloride 0.9% 10 Ml Flush Syringe) 10 ml IV PRN PRN PRN Reason: LINE FLUSH Thiamine HCl (Thiamine 100 Mg Tab) 100 mg FEEDTUBE QDAY [facility] Last Admin: 09/17/21 11:50 Dose: 100 mg Review of Systems ROS unobtainable: due to mental status Physical Examination - Vital Signs Vital Signs: Vital Signs Temp Pulse Resp BP Pulse Ox 107.3 F H 155 H 46 H 115/42 100 09/16/21 16:47 09/16/21 16:47 09/16/21 16:47 09/16/21 16:47 09/16/21 16:47 - Physical Exam Narrative exam: Gen: nad, intubated; Head: normocephalic; Eyes: no gaze deviation; no ptosis appreciated; ENT: +ETT; CVS: warm and well-perfused; Pulm: no respiratory distress; GI: appears non-distended; Ext: no cyanosis appreciated at distal extremities; Skin: no acute rash or hives appreciated at distal extremities; Heme: no pathologic ecchymosis appreciated at distal extremities; Neuro: stuporous, follow command to squeeze hands bilaterally, intubated, CN 2 - non-reactive pupils, CN 3, 4, 6 - oculocephalic intact, CN 5/7 - only left corneal reflex intact, CN 9/10 - spontaneous swallowing noted, CN 11/12 - pt cannot cooperate secondary to LOC; Motor/Sensory - at least 3-/5 at all exts to tactile stimuli; Cerebellar/Gait - pt cannot cooperate secondary to LOC; Results - Laboratory Findings CBC and BMP: 09/17/21 05:16 09/17/21 09:18 Abnormal Lab Findings: Abnormal Labs 09/16/21 09/16/21 09/16/21 16:59 17:10 17:14 Hct MCV 96 H MCH 33 H MCHC Plt Count Lymph % (Auto) Oliver % (Auto) 7.9 H Lymph # (Auto) Seg Neutrophils % PT INR ABG pH ABG pO2 ABG O2 Saturation ABG Base Excess ABG Hemoglobin Sodium Potassium Carbon Dioxide Glucose POC Glucose 144 H Lactic Acid Calcium Magnesium Total Protein Albumin Urine WBC (Auto) 59.0 H 09/16/21 09/16/21 09/16/21 17:14 17:14 19:53 Hct MCV MCH MCHC Plt Count Lymph % (Auto) Oliver % (Auto) Lymph # (Auto) Seg Neutrophils % PT 16.1 H INR 1.16 H ABG pH ABG pO2 ABG O2 Saturation ABG Base Excess ABG Hemoglobin Sodium 135 L Potassium 5.2 H Carbon Dioxide 16 L Glucose 130 H POC Glucose Lactic Acid 3.20 H* Calcium Magnesium 1.40 L Total Protein Albumin Urine WBC (Auto) 09/16/21 09/17/21 09/17/21 20:00 05:10 05:16 Hct 35.0 L D MCV 95 H MCH 33 H MCHC 35 H Plt Count 87 L Lymph % (Auto) 13.1 L Oliver % (Auto) 11.8 H Lymph # (Auto) 0.7 L Seg Neutrophils % 74.9 H PT INR ABG pH 7.333 L ABG pO2 433.9 H 120.3 H ABG O2 Saturation 99.6 H ABG Base Excess -3.5 L -4.3 L ABG Hemoglobin 13.1 L 12.1 L Sodium Potassium Carbon Dioxide Glucose POC Glucose Lactic Acid Calcium Magnesium Total Protein Albumin Urine WBC (Auto) 09/17/21 09/17/21 05:16 09:18 Hct MCV MCH MCHC Plt Count Lymph % (Auto) Oliver % (Auto) Lymph # (Auto) Seg Neutrophils % PT INR ABG pH ABG pO2 ABG O2 Saturation ABG Base Excess ABG Hemoglobin Sodium Potassium 2.9 L* D 3.4 L Carbon Dioxide 21 L Glucose 108 H POC Glucose Lactic Acid Calcium 7.7 L D Magnesium Total Protein 5.4 L D Albumin 3.1 L Urine WBC (Auto) Assessment and Plan 66 yo male seizure d/o, substance abuse, who presents with hyperthermia (107F) with seizure activity. Patient was seen by teleneurology in the ED. 1. Seizure d/o - pt is not in status epilepticus as he is able to follow commands at all extremities; continue Keppra 500 mg iv/po bid; Dilantin 100 mg po/ngt tid; workup for underlying metabolic, toxic, infectious etiologies/triggers per primary team; seizure precautions / restrictions. 2. Substance Abuse - amphetamines can trigger seizures; likely culprit. 3. Alcohol Abuse / Withdrawal - may also trigger seizures; per primary team. 4. Followup with Neurology in 2 weeks with seizure restrictions in place until cleared by a neurologist. Anthony Germain MD Neurology [id number]
[2021-09-17] MEDS ORDERED: POTASSIUM CHLORIDE 20 MEQ PACKET FEEDTUBE ONE (14:53)
[2021-09-17] MEDS: PHENYTOIN 100 MG/4 ML ORAL.LIQD FEEDTUBE SCH ×2 (14:57→22:02)
[2021-09-17] MEDS ORDERED: VANCOMYCIN 1,000 MG in SODIUM CHLORIDE 0.9% 500 ML 500 ML IV ONE (17:29)
[2021-09-17] MEDS: POTASSIUM CHLORIDE 20 MEQ PACKET FEEDTUBE SCH ×2 (17:41→22:03)
[2021-09-17] MEDS: CALCIUM CARBONATE 1250 MG TAB PO SCH ×2 (17:44→22:03)
[2021-09-17] MEDS ORDERED: VANCOMYCIN/NS 1 GM/250 ML 1 GM/250 ML BAG IV ONE (18:00)
--- NOTE | 2021-09-17 18:27 | Progress Note ---
Assessment and Plan Assessment and plan: This is a 66-year-old male with asthma, EtOH abuse, pancreatitis, legally blind, seizure disorder, HFrEF admitted with seizures, malignant hyperthermia, SVT, hypokalemia and hypomagnesemia Neuro: Amphetamine use, malignant hyperthermia, seizures, h/o EtOH use, legally blind, seizure disorder -Presented with temperature of 107.3 F -Neurology consulted, patient recommendations -Sedated with Ativan, Versed -DC Ativan/Versed gtt -Propofol on MAY if needed -RASS goal 0 to -1 -Reorientation as needed -Maintain sleep-wake cycle -Seizure precautions -As needed analgesia -CT head with no acute intracranial abnormality -MRI brain pending -Neurology recommends to continue Keppra 500 mg twice daily, Dilantin 100 mg 3 times daily -UDS positive for amphetamines -Neurology recommends follow-up with neurology within 2 weeks with seizure restrictions and placed into care of a neurologist -Bilateral wrist restraints in place for safety -EEG pending -Thiamine, folic acid Cardiac: SVT, h/o cardiomyopathy, heart failure with reduced EF -Cardiology consulted, appreciate recommendations -S/p adenosine x3, Cardizem x2 and cardioversion, amiodarone x1 -Per cardiology due to amphetamine use no beta-kalpana at this time -Hold CCB due to low blood pressure -Resume home losartan, aspirin -Blood pressure monitoring per protocol -Echocardiogram pending -On chart review patient had an echocardiogram on 12/2020 which showed a EF of 30 to 35%, severe hypokinesis of the apex and values with hyperdynamic base suggesting stress cardiomyopathy Respiratory: Acute hypoxic respiratory failure -CCM consulted, appreciate recommendations -Intubated on 09/16 with 7.50 ETT at 24 the lips for airway protection in the ED -A.m. vent settings: Assist-control rate 22, tidal volume 450, PEEP 6, FiO2 30% -Immediately failed PSV trial in the a.m. -See RT notes for titration -A.m. ABG and CXR noted -VAP bundle -SPO2 monitoring GI: Moderate protein calorie malnutrition -S/p Protonix and octreotide drip -PPI -NTR consulted for tube feedings -BR: Senna/Colace : Hypokalemia, metabolic acidosis, hyperkalemia (resolved), hypomagnesemia (resolved) -Potassium repleted with IV 40 mEq -Repeat potassium 3.4 -Repleted with 80 mEq p.o. potassium -Monitor intake and output -Renally dose medications -Avoid nephrotoxic medications -Trend BMP ID: Lactic acidosis (resolved), gram-positive cocci in clusters -Antibiotic therapy with ceftriaxone (discontinued today) -UA with moderate LE -S/p vancomycin x1 -f/u blood culture -Monitor WBC and temperature curve Endo: NAD -Avoid hypoglycemia -Accu-Cheks q. 6 Heme: NAD -Positive coag but no signs of overt bleeding -Trend CBC -Transfuse hemoglobin less than 7 -SCDs to BLE while in bed The high probability of a clinically significant, sudden or life threatening deterioration of the [multi] system(s) required my full and direct attention, intervention and personal management. The aggregate critical care time was [60] minutes. This time is in addition to time spent performing reported procedures but includes the following: [x] Data Review and interpretation [x] Patient assessment and monitoring of vital signs [x] Documentation [x] Medication orders and management Disposition Plan: icu Total Time Spent with Patient (Minutes): 60 History Interval history: This is a 66-year-old male with asthma, EtOH abuse, pancreatitis, legally blind, seizure disorder, gout, heart failure with reduced EF and COVID-19 infection 03/2021) who presented to emergency department via EMS after being found with altered mental status and being "very warm to touch" after being found with a fall and winter jacket on. On arrival to the emergency department patient was on a nonrebreather and appeared to be tremulous and confused and not responding. Per EMS in route patient had SVT which was treated with 6 and 12 mg of adenosine with no effect. Upon arrival to the emergency department patient had ECG which revealed narrow regular supraventricular tachycardia with heart rate in the 1 70-1 80 and given the patient was confused and altered patient was given additional 12 mg of adenosine with no change and then synchronized cardioverted at 100 J which did not convert as well. After this patient was given Cardizem 20 mg x 1 and 25 mg x 1 which converted patient to sinus rhyth m/ST. On arrival to the emergency department patient was also hypothermic at 107.3 F per documentation patient also had recurrent seizures in the ED and was intubated for airway protection and started on a Ativan drip. Patient also had a positive occult and was started on octreotide and Protonix drip. Patient's UDS was also positive for amphetamines and per teleneurology patient was recommended to be switched to midazolam if seizure activity persistent with lorazepam. Patient was admitted to the hospitalist service with acute hypoxic respiratory failure, malignant hyperthermia, seizures, hypomagnesemia, lactic acidosis and SVT with consults to [facility], cardiology and neurology. Hospital course to date: 09/17: Octreotide/Protonix drip discontinued, potassium replaced with IV KCl and repeat potassium 3.4 repleted with p.o. potassium. Antibiotics discontinued ho wever this evening patient blood culture resulted with gram-positive cocci and he was given one-time dose of vancomycin. IV fluids discontinued, tube feeding started. MRI brain pending however unable to complete checklist due to altered mental status and no family in chart. Rate decreased on ventilator to 18 and repeat echocardiogram pending. Hospitalist Physical - Constitutional Vitals: Temp Pulse Resp BP Pulse Ox 97.6 F 74 19 149/89 100 09/17/21 15:56 09/17/21 17:00 09/17/21 17:00 09/17/21 17:00 09/17/21 17:00 General appearance: Present: no acute distress, other (Intubated) - EENT Eyes: Present: PERRL, EOM intact ENT: poor dentition - Neck Neck: Present: normal ROM - Respiratory Respiratory effort: normal Respiratory: bilateral: CTA - Cardiovascular Rhythm: regular Heart Sounds: Present: S1 & S2. Absent: systolic murmur, diastolic murmur - Extremities Extremities: no ischemia, pulses intact, pulses symmetrical, No edema, normal temperature, normal color Peripheral Pulses: within normal limits - Abdominal General gastrointestinal: soft, non-tender, non-distended, normal bowel sounds - Integumentary Integumentary: Present: warm, dry - Psychiatric Psychiatric: cooperative - Neurologic Neurologic: no focal deficits, moves all extremities, other (intermittantly follows commands) - Allied Health Allied health notes reviewed: nursing, RT, social work HEART Score - HEART Score Troponin: Troponin T < 0.010 ng/mL (0.00-0.029) 09/16/21 17:14 Results - Labs CBC & Chem 7: 09/17/21 05:16 09/17/21 09:18 Labs: Laboratory Last Values WBC 5.1 K/mm3 (4.5-11.0) 09/17/21 05:16 RBC 3.70 M/mm3 (3.65-5.03) 09/17/21 05:16 Hgb 12.3 gm/dl (11.8-15.2) 09/17/21 05:16 Hct 35.0 % (35.5-45.6) L D 09/17/21 05:16 MCV 95 fl (84-94) H 09/17/21 05:16 MCH 33 pg (28-32) H 09/17/21 05:16 MCHC 35 % (32-34) H 09/17/21 05:16 RDW 13.3 % (13.2-15.2) 09/17/21 05:16 Plt Count 87 K/mm3 (140-440) L 09/17/21 05:16 Lymph % (Auto) 13.1 % (13.4-35.0) L 09/17/21 05:16 [place] % (Auto) 11.8 % (0.0-7.3) H 09/17/21 05:16 Eos % (Auto) 0.1 % (0.0-4.3) 09/17/21 05:16 Baso % (Auto) 0.1 % (0.0-1.8) 09/17/21 05:16 Lymph # (Auto) 0.7 K/mm3 (1.2-5.4) L 09/17/21 05:16 [place] # (Auto) 0.6 K/mm3 (0.0-0.8) 09/17/21 05:16 Eos # (Auto) 0.0 K/mm3 (0.0-0.4) 09/17/21 05:16 Baso # (Auto) 0.0 K/mm3 (0.0-0.1) 09/17/21 05:16 Seg Neutrophils % 74.9 % (40.0-70.0) H 09/17/21 05:16 Seg Neutrophils # 3.8 K/mm3 (1.8-7.7) 09/17/21 05:16 PT 16.1 Sec. (12.2-14.9) H 09/16/21 19:53 INR 1.16 (0.87-1.13) H 09/16/21 19:53 APTT 25.8 Sec. (24.2-36.6) 09/16/21 19:53 ABG pH 7.360 pH Units (7.350-7.450) 09/17/21 05:10 ABG pCO2 37.4 mm Hg 09/17/21 05:10 ABG pO2 120.3 mm Hg (80.0-90.0) H 09/17/21 05:10 ABG HCO3 20.7 mmol/L (20.0-26.0) 09/17/21 05:10 ABG O2 Saturation 98.2 % (95.0-99.0) 09/17/21 05:10 ABG O2 Content 16.5 (0.0-44) 09/17/21 05:10 ABG Base Excess -4.3 mmol/L (-2.0-3.0) L 09/17/21 05:10 ABG Hemoglobin 12.1 gm/dl (14.0-18.0) L 09/17/21 05:10 ABG Carboxyhemoglobin 1.6 % (0.0-5.0) 09/17/21 05:10 ABG Methemoglobin 0.4 % (0.0-1.5) 09/17/21 05:10 Oxyhemoglobin 96.2 % (95.0-99.0) 09/17/21 05:10 FiO2 30 % 09/17/21 05:10 Sodium 137 mmol/L (137-145) 09/17/21 05:16 Potassium 3.4 mmol/L (3.6-5.0) L 09/17/21 09:18 Chloride 106.2 mmol/L (98-107) 09/17/21 05:16 Carbon Dioxide 21 mmol/L (22-30) L 09/17/21 05:16 Anion Gap 13 mmol/L 09/17/21 05:16 BUN 15 mg/dL (9-20) 09/17/21 05:16 Creatinine 0.8 mg/dL (0.8-1.3) 09/17/21 05:16 Estimated GFR > 60 ml/min 09/17/21 05:16 BUN/Creatinine Ratio 19 % 09/17/21 05:16 Glucose 108 mg/dL (75-100) H 09/17/21 05:16 POC Glucose 87 mg/dL (70-105) 09/17/21 03:55 Lactic Acid 0.80 mmol/L (0.7-2.0) 09/16/21 22:50 Calcium 7.7 mg/dL (8.4-10.2) L D 09/17/21 05:16 Magnesium 1.90 mg/dL (1.7-2.3) 09/17/21 05:16 Total Bilirubin 0.70 mg/dL (0.1-1.2) 09/17/21 05:16 AST 21 units/L (5-40) 09/17/21 05:16 ALT 9 units/L (7-56) 09/17/21 05:16 Alkaline Phosphatase 62 units/L (35-129) 09/17/21 05:16 Total Creatine Kinase 95 units/L (55-170) 09/17/21 09:18 Troponin T < 0.010 ng/mL (0.00-0.029) 09/16/21 17:14 NT-Pro-B Natriuret Pep 342.9 pg/mL (0-900) 09/16/21 17:14 Total Protein 5.4 g/dL (6.3-8.2) L D 09/17/21 05:16 Albumin 3.1 g/dL (3.9-5) L 09/17/21 05:16 Albumin/Globulin Ratio 1.3 % 09/17/21 05:16 Urine Color (Yellow) 09/16/21 17:10 Urine Turbidity Cloudy (Clear) 09/16/21 17:10 Urine pH 5.0 (5.0-7.0) 09/16/21 17:10 Ur Specific Era 1.023 (1.003-1.030) 09/16/21 17:10 Urine Protein 100 mg/dl mg/dL (Negative) 09/16/21 17:10 Urine Glucose (UA) Neg mg/dL (Negative) 09/16/21 17:10 Urine Ketones 80 mg/dL (Negative) 09/16/21 17:10 Urine Blood Sm (Negative) 09/16/21 17:10 Urine Nitrite Neg (Negative) 09/16/21 17:10 Urine Bilirubin Neg (Negative) 09/16/21 17:10 Urine Urobilinogen < 2.0 mg/dL (<2.0) 09/16/21 17:10 Ur Leukocyte Esterase Mod (Negative) 09/16/21 17:10 Urine WBC (Auto) 59.0 /HPF (0.0-6.0) H 09/16/21 17:10 Urine RBC (Auto) 8.0 /HPF (0.0-6.0) 09/16/21 17:10 U Epithel Cells (Auto) 1.0 /HPF (0-13.0) 09/16/21 17:10 Urine Bacteria (Auto) 2+ /HPF (Negative) 09/16/21 17:10 Hyaline Casts 152 /LPF 09/16/21 17:10 Urine Mucus 3+ /HPF 09/16/21 17:10 Urine Yeast (Budding) Not Reportable 09/16/21 17:10 Urine Opiates Screen Presumptive negative 09/16/21 17:13 Urine Methadone Screen Presumptive negative 09/16/21 17:13 Ur Barbiturates Screen Presumptive negative 09/16/21 17:13 Ur Phencyclidine Scrn Presumptive negative 09/16/21 17:13 Ur Amphetamines Screen Presumptive positive 09/16/21 17:13 U Benzodiazepines Scrn Presumptive negative 09/16/21 17:13 Urine Cocaine Screen Presumptive negative 09/16/21 17:13 U Marijuana (THC) Screen Presumptive negative 09/16/21 17:13 Drugs of Abuse Note Disclamer 09/16/21 17:13 Plasma/Serum Alcohol < 0.01 % (0-0.07) 09/16/21 18:17 Blood Type A POSITIVE 09/16/21 21:00 Antibody Screen Negative 09/16/21 21:00 Microbiology: Microbiology 09/17/21 01:50 Tracheal Aspirate Sputum Culture - Preliminary Gram Negative Geoffrey 09/16/21 17:14 Peripheral/Venous Blood Culture - Preliminary 09/16/21 17:14 Peripheral/Venous Blood Culture - Preliminary Culture in Progress 09/16/21 19:26 Stool Stool Occult Blood (SEE) - Final [place]/IV: Voiding Method Indwelling Catheter Active Medications - Current Medications Current Medications: Generic Name Dose Route Start Last Admin Trade Name Freq PRN Reason Stop Dose Admin Acetaminophen 650 mg 09/16/21 23:25 Acetaminophen 325 Mg Tab PO Q4H PRN Pain MILD(1-3)/Fever >100.5/CAAL Albuterol 2.5 mg 09/16/21 23:25 Albuterol 2.5 Mg/3 Ml Nebu IH Q3HRT PRN Shortness Of Breath Aspirin 81 mg 09/17/21 10:00 09/17/21 11:50 Aspirin 81 Mg Tab Chew FEEDTUBE 81 mg QDAY DG Administration Calcium Carbonate/Glycine 1,250 mg 09/17/21 10:00 09/17/21 17:44 Calcium Carbonate 1250 Mg Tab PO Not Given BID DG Famotidine 20 mg 09/17/21 22:00 Famotidine 20 Mg Tab FEEDTUBE BID DG Folic Acid 1 mg 09/17/21 10:00 09/17/21 11:50 Folic Acid 1 Mg Tab FEEDTUBE 1 mg QDAY DG Administration Hydralazine HCl 10 mg 09/16/21 23:42 Hydralazine 20 Mg/1 Ml Inj IV Q6H PRN Blood Pressure Levetiracetam 1,500 mg/ 115 mls @ 400 mls/hr 09/16/21 22:00 09/17/21 12:08 Dextrose IV Infused Q12HR DG Infusion Propofol 1,000 mg in 100 mls @ 1.869 mls/hr 09/17/21 12:00 Diprivan 10 Mg/Ml IV TITR DG Protocol 5 MCG/KG/MIN Losartan Potassium 25 mg 09/17/21 10:00 09/17/21 11:50 Losartan 25 Mg Tab FEEDTUBE Not Given QDAY DG Morphine Sulfate 2 mg 09/16/21 23:25 Morphine 2 Mg/1 Ml Inj IV Q4H PRN Pain, Moderate (4-6) Morphine Sulfate 4 mg 09/16/21 23:25 Morphine 4 Mg/1 Ml Inj IV Q4H PRN Pain , Severe (7-10) Ondansetron HCl 4 mg 09/16/21 23:25 Ondansetron 4 Mg/2 Ml Inj IV Q8H PRN Nausea And Vomiting Phenytoin 100 mg 09/17/21 14:00 09/17/21 14:57 Phenytoin 100 Mg/4 Ml Oral.Liqd FEEDTUBE 100 mg Q8HR DG Administration Potassium Chloride 40 meq 09/17/21 18:00 09/17/21 17:41 Potassium Chloride 20 Meq Packet FEEDTUBE 09/17/21 22:01 40 meq Q4HR DG Administration Senna/Docusate Sodium 1 tab 09/17/21 22:00 Sennosides/Docusate Sodium 8.6/50 Mg Tab FEEDTUBE QHS DG Sodium Chloride 10 ml 09/17/21 10:00 09/17/21 11:51 Sodium Chloride 0.9% 10 Ml Flush Syringe IV 10 ml BID DG Administration Sodium Chloride 10 ml 09/16/21 23:25 Sodium Chloride 0.9% 10 Ml Flush Syringe IV PRN PRN LINE FLUSH Thiamine HCl 100 mg 09/17/21 10:00 09/17/21 11:50 Thiamine 100 Mg Tab FEEDTUBE 100 mg QDAY DG Administration Nutrition/Malnutrition Assess - Dietary Evaluation Nutrition/Malnutrition Findings: Nutrition Notes Start: 09/17/21 11:59 Freq: Status: Active Protocol: Document 09/17/21 11:59 MACIEJ (Rec: 09/17/21 12:47 MACIEJ [id number]) Nutrition Notes Need for Assessment generated from: MD Order,tick sewer,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 Labs/Tests 09/17: K 2.9, CO2 21, Glu 108, Ca 7.7. Pertinent Medications 09/17: D5ns @ 100 ml/hr, Folic acid, Thiamine, KCl 20mEq, Propofol @ 1.869 ml/hr (49 Kcal), others nutritionally unremarkable. Height 6 ft 2 in Weight 62.3 kg [place] Body Weight (kg) 86.36 BMI 17.6 Intake Prior to Admission Good Weight change and time frame Pt states being unsure if loss body weight [employer]. Weight Status Underweight Subjective/Other Information RD consult for skin risk, risk of malnutrition, and Low BMI assessments, and write/manage TF. Pt currently NPO. I will prescribe TF to provide Pt for energy/protein needs during LOS. Pt is on Mechanical Ventilation, O2 saturation @ 100%, according to Physical Assessment History notes. Pt presents unspecified rash and redness as signs of concern for skin risk at this time, according to Physical Assessment History notes. Pt presents underweight and EtOH dependence/pancreatitis as signs of concern for risk of malnutrition at this time, according to Physical Assessment History and History & Physical notes. Pt is homeless and legally blind, according to History & Physical notes. Pt's Low BMI seems to correspond to a natural body composition, probably not related to a sudden loss of body weight, but exacerbated by chronic malnutrition induced by EtOH dependence, since those signs of concern were mentioned in the Physical Assessment History and the History & Physical notes. Percent of energy/protein needs met: Pt currently NPO. Prescribed TF-Vital AF 1.2 Anton @ 60 ml/hr provides for energy/protein needs (1,715 Kcal/107 g) during LOS, 76% Kcal; 115% AA. Burn Absent Trauma Absent GI Symptoms None Food Allergy No Skin Integrity/Comment Unspecified rash and redness. Current % PO Other Fluid Accumulation N/A Reduced Measurement Superintendent Strength N/A (non-severe) Protein-Calorie Malnutrition N\\A #2 Nutrition Diagnosis Underweight Etiology Possibly secondary to EtOH dependence. As Evidenced by Signs and Symptoms BMI 17.6 Kg/m2. #1 Nutrition Diagnosis Inadequate oral intake Etiology Pt in mechanical ventilation. As Evidenced by Signs and Symptoms Pt currently oin NPO. Is patient on ventilator? Yes Is Patient Ambulatory and/or Out of Bed No REE-([facility]-confined to bed) 1778.796 Kcal/Kg value to use for calculation 36 Approximate Energy Requirements Using 2243 kcal/Kg Calculation Used for Recommendations Kcal/kg Additional Notes Protein: 1.2-1.5 g/Kg ABW; 74- 93 g/day. Fluids: 1 ml/Kcal, or as per MD. Nutrition Intervention Nutrition Support: Start TF-Vital AF 1.2 Anton @ 60 ml/hr. Flush: 180 ml water Q 4 hr, or asper MD. Kcal 1,715 Protein (gm) 107 Carbohydrates (gm) 158 Fat (gm) 77 Fluid (mL) 1,159 Fiber (gm) 7 % RDI: 76% Kcal; 115% AA. Goal #1 Provide at least 75% of energy /protein needs through Enteral Feeding during LOS. Follow-Up By: 09/21/21 Additional Comments Start monitoring TF tolerance and BM.
[2021-09-17] MEDS: FAMOTIDINE 20 MG TAB FEEDTUBE SCH (22:03)
[2021-09-17] MEDS: SENNOSIDES/DOCUSATE SODIUM 8.6/50 MG TAB FEEDTUBE SCH (22:03)
[2021-09-18 04:53] LABS: Blood Urea Nitrogen 9 mg/dL (9-20); Calcium 8.2 mg/dL (8.4-10.2); Hemolysis Index 6
[2021-09-18 05:04] LABS: ABG Base Excess -1.7 mmol/L (-2.0-3.0); ABG HCO3 22.2 mmol/L (20.0-26.0); ABG Methemoglobin 0.8 % (0.0-1.5); ABG PCO2 35.1 mm Hg; ABG PH 7.419 pH Units (7.350-7.450); ABG PO2 107.9 mm Hg (80.0-90.0)
[2021-09-18 05:04] LABS: BUN/Creatinine Ratio 15
[2021-09-18 05:06] LABS: Hemoglobin 13.1 gm/dl (11.8-15.2); Mean Corpuscular HGB Conc 34 % (32-34); Mean Corpuscular Volume 95 fl (84-94); Platelet Count 89 K/mm3 (140-440); Red Blood Count 4.09 M/mm3 (3.65-5.03); Red Cell Distribution Width 13.2 % (13.2-15.2)
[2021-09-18] MEDS: PHENYTOIN 100 MG/4 ML ORAL.LIQD FEEDTUBE SCH ×3 (06:10→22:59)
[2021-09-18] MEDS: FAMOTIDINE 20 MG TAB FEEDTUBE SCH ×2 (09:06→22:58)
[2021-09-18] MEDS: FOLIC ACID 1 MG TAB FEEDTUBE SCH (09:06)
[2021-09-18] MEDS: ASPIRIN 81 MG TAB CHEW FEEDTUBE SCH (09:07)
[2021-09-18] MEDS: THIAMINE 100 MG TAB FEEDTUBE SCH (09:07)
[2021-09-18] MEDS: MULTIVITAMIN / MINERAL ORAL LIQUID 15 ML FEEDTUBE SCH (09:07)
[2021-09-18] MEDS: LOSARTAN 25 MG TAB FEEDTUBE SCH (09:08)
[2021-09-18] MEDS: levETIRAcetam 1,500 MG in DEXTROSE 5% IN WATER 100 ML IV SCH (09:59)
[2021-09-18] MEDS ORDERED: MAGNESIUM SULFATE 4 GM/100 ML BAG IV SCH (10:00)
[2021-09-18] MEDS ORDERED: SODIUM CHLORIDE 0.9% 1000 ML 1,000 ML ONE (10:14)
[2021-09-18] MEDS ORDERED: POTASSIUM PHOSPHATE 30 MMOL in SODIUM CHLORIDE 0.9% 500 ML 500 ML IV SCH (10:30)
[2021-09-18] MEDS ORDERED: CEFEPIME/NS 1 GM/100 ML 1 GM/100 ML BAG IV SCH (11:00)
[2021-09-18] MEDS: carvediloL 6.25 MG TAB FEEDTUBE SCH ×2 (11:11→22:58)
--- NOTE | 2021-09-18 12:03 | Progress Note ---
Assessment and Plan 66 y/o male with acute respiratory failure secondary to seizures, likely prompted by hyperthermia (multifactorial including drugs). 09/18/21: No sedation. Follow up EEG results. Echo results are stable with depressed EF. Continue PSV trials as tolerated. 1. Continue to monitor off sedation 2. There was question of GI bleed but no active bleeding seen and stable H/H, will stop PPI and octreotide 3. Does not appear to infectious causes for encephalopathy and or fever, will stop abx therapy 4. Agree with EEG for seizures, especially given lack of improvement in mental state. Tele neuro seeing patient 5. Feed patient 6. Cards consulted. Prior echo shows and EF of 30%, repeating today. cct 31 minutes Subjective Date of service: 09/18/21 Interval history: No acute events. Tolerating PSV. Responds when call his name. Objective Vital Signs - 12hr 09/18/21 09/18/21 09/18/21 00:00 00:30 00:44 Temperature 100.2 F H Pulse Rate 94 H 94 H 95 H Pulse Rate [ 62 From Monitor] Respiratory 23 23 Rate Blood Pressure 160/96 160/96 160/96 O2 Sat by Pulse 98 98 98 Oximetry 09/18/21 09/18/21 09/18/21 01:00 02:00 03:00 Temperature Pulse Rate 98 H 104 H 109 H Pulse Rate [ From Monitor] Respiratory 20 24 19 Rate Blood Pressure 158/89 144/93 161/79 O2 Sat by Pulse 97 97 97 Oximetry 09/18/21 09/18/21 09/18/21 04:00 04:39 05:00 Temperature 98.7 F Pulse Rate 99 H 104 H 98 H Pulse Rate [ 62 From Monitor] Respiratory 19 20 Rate Blood Pressure 150/88 150/88 163/85 O2 Sat by Pulse 99 100 99 Oximetry 09/18/21 09/18/21 09/18/21 06:00 07:00 07:13 Temperature 99.2 F Pulse Rate 96 H 100 H Pulse Rate [ From Monitor] Respiratory 18 23 Rate Blood Pressure 156/89 148/93 O2 Sat by Pulse 100 100 Oximetry 09/18/21 09/18/21 09/18/21 07:21 08:00 08:55 Temperature Pulse Rate 103 H 93 H Pulse Rate [ 106 H From Monitor] Respiratory 25 H 22 Rate Blood Pressure 153/93 153/93 O2 Sat by Pulse 100 99 98 Oximetry 07/15/22 07/15/22 07/15/22 09:02 09:08 09:20 Temperature Pulse Rate 90 94 H Pulse Rate [ From Monitor] Respiratory 16 15 Rate Blood Pressure 135/81 O2 Sat by Pulse 100 98 Oximetry 09/18/21 09/18/21 09/18/21 10:00 10:55 11:00 Temperature Pulse Rate 93 H 94 H 90 Pulse Rate [ From Monitor] Respiratory 20 18 Rate Blood Pressure 128/78 129/74 O2 Sat by Pulse 98 98 Oximetry 09/18/21 09/18/21 09/18/21 11:11 11:41 11:53 Temperature 98.3 F Pulse Rate 92 H 91 H Pulse Rate [ 92 H From Monitor] Respiratory 16 13 Rate Blood Pressure 129/74 129/74 O2 Sat by Pulse 100 99 Oximetry CBC and BMP: 09/18/21 Unknown 09/18/21 Unknown ABG, PT/INR, D-dimer: ABG ABG pH 7.419 pH Units (7.350-7.450) 09/18/21 04:45 ABG pCO2 35.1 mm Hg 09/18/21 04:45 ABG pO2 107.9 mm Hg (80.0-90.0) H 09/18/21 04:45 ABG O2 Saturation 98.0 % (95.0-99.0) 09/18/21 04:45 PT/INR, D-dimer PT 16.1 Sec. (12.2-14.9) H 09/16/21 19:53 INR 1.16 (0.87-1.13) H 09/16/21 19:53 Abnormal lab findings: Abnormal Labs 09/16/21 09/16/21 09/16/21 16:59 17:10 17:14 Hct MCV 96 H MCH 33 H MCHC Plt Count Lymph % (Auto) [place] % (Auto) 7.9 H Lymph # (Auto) Seg Neutrophils % PT INR ABG pH ABG pO2 ABG O2 Saturation ABG Base Excess ABG Hemoglobin Sodium Potassium Carbon Dioxide Creatinine Glucose POC Glucose 144 H Lactic Acid Calcium Phosphorus Magnesium Total Protein Albumin Urine WBC (Auto) 59.0 H 09/16/21 09/16/21 09/16/21 17:14 17:14 19:53 Hct MCV MCH MCHC Plt Count Lymph % (Auto) [place] % (Auto) Lymph # (Auto) Seg Neutrophils % PT 16.1 H INR 1.16 H ABG pH ABG pO2 ABG O2 Saturation ABG Base Excess ABG Hemoglobin Sodium 135 L Potassium 5.2 H Carbon Dioxide 16 L Creatinine Glucose 130 H POC Glucose Lactic Acid 3.20 H* Calcium Phosphorus Magnesium 1.40 L Total Protein Albumin Urine WBC (Auto) 09/16/21 09/17/21 09/17/21 20:00 05:10 05:16 Hct 35.0 L D MCV 95 H MCH 33 H MCHC 35 H Plt Count 87 L Lymph % (Auto) 13.1 L [place] % (Auto) 11.8 H Lymph # (Auto) 0.7 L Seg Neutrophils % 74.9 H PT INR ABG pH 7.333 L ABG pO2 433.9 H 120.3 H ABG O2 Saturation 99.6 H ABG Base Excess -3.5 L -4.3 L ABG Hemoglobin 13.1 L 12.1 L Sodium Potassium Carbon Dioxide Creatinine Glucose POC Glucose Lactic Acid Calcium Phosphorus Magnesium Total Protein Albumin Urine WBC (Auto) 09/17/21 09/17/21 09/18/21 05:16 09:18 00:10 Hct MCV MCH MCHC Plt Count Lymph % (Auto) [place] % (Auto) Lymph # (Auto) Seg Neutrophils % PT INR ABG pH ABG pO2 ABG O2 Saturation ABG Base Excess ABG Hemoglobin Sodium Potassium 2.9 L* D 3.4 L Carbon Dioxide 21 L Creatinine Glucose 108 H POC Glucose 116 H Lactic Acid Calcium 7.7 L D Phosphorus Magnesium Total Protein 5.4 L D Albumin 3.1 L Urine WBC (Auto) 09/18/21 09/18/21 09/18/21 04:45 05:17 Unknown Hct MCV 95 H MCH MCHC Plt Count 89 L Lymph % (Auto) [place] % (Auto) Lymph # (Auto) Seg Neutrophils % PT INR ABG pH ABG pO2 107.9 H ABG O2 Saturation ABG Base Excess ABG Hemoglobin 13.3 L Sodium Potassium Carbon Dioxide Creatinine Glucose POC Glucose 133 H Lactic Acid Calcium Phosphorus Magnesium Total Protein Albumin Urine WBC (Auto) 09/18/21 09/18/21 Unknown Unknown Hct MCV MCH MCHC Plt Count Lymph % (Auto) [place] % (Auto) Lymph # (Auto) Seg Neutrophils % PT INR ABG pH ABG pO2 ABG O2 Saturation ABG Base Excess ABG Hemoglobin Sodium 136 L Potassium Carbon Dioxide Creatinine 0.6 L Glucose 134 H POC Glucose Lactic Acid 0.60 L Calcium 8.2 L Phosphorus 1.60 L Magnesium 1.40 L Total Protein Albumin Urine WBC (Auto)
--- NOTE | 2021-09-18 12:35 | Progress Note ---
Assessment and Plan Patient is a 66-year-old homeless male with past medical history of of asthma, alcoholism, pancreatitis, legally blind, and seizures who was brought to the ED due to altered mental status yesterday AMS-neurology follow Acute respiratory failure-pulmonology following SVT versus a flutter Seizures Malignant hyperthermia History of alcoholism History of asthma Cardiomyopathy Positive for amphetamines Echo 12/15/2020-EF 30 to 35%. Left ventricle is mildly dilated. Severe hypokinesis is noted on the whole apex with a relative hyperdynamic base for suggestive of stress cardiomyopathy. Left atrium is mildly dilated. Right ventricular systolic function is normal. Ascending aorta mildly dilated Echo 09/16/2021-EF 35 to 40%. Right ventricle systolic function is normal. Right ventricle is mildly dilated. Aortic valve is normal in structure no aortic regurgitation. Trace mitral regurgitation. Trace tricuspid regurgitation Plan: Poor EKG SVT versus a flutter rate 175. Borderline ST depression in the anterior leads Repeat EKG pending. Troponins negative Telemetry reviewed patient currently in sinus rhythm Suspect SVT as a result of amphetamines and malignant hyperthermia Telemetry reviewed patient currently in sinus rhythm Will inititiate carvedilol 6.25 mg p.o. twice daily Continue aspirin and losartan 25 mg p.o. daily Patient seen in conjunction with Dr. Potter who agrees with plan of care - Patient Problems (1) ETOH abuse Current Visit: No Status: Acute (2) Hyponatremia Current Visit: No Status: Acute (3) Seizures Current Visit: Yes Status: Acute (4) Alcohol abuse Current Visit: No Status: Chronic (5) Malignant hyperthermia Current Visit: Yes Status: Acute (6) Acute respiratory failure Current Visit: Yes Status: Acute (7) SVT (supraventricular tachycardia) Current Visit: Yes Status: Acute (8) Hypokalemia Current Visit: No Status: Acute (9) Lactic acidosis Current Visit: Yes Status: Acute Subjective Date of service: 09/18/21 Principal diagnosis: AMS, Malignant Hyperthermia, SVT, Overdose? Interval history: Patient remains intubated with altered mental status Sinus 90s on monitor with no events Objective Vital Signs Temp Pulse Pulse Resp BP Pulse Ox 09/18/21 11:53 91 H 13 129/74 99 09/18/21 11:41 98.3 F 92 H 16 100 09/18/21 11:11 92 H 129/74 09/18/21 11:00 90 18 129/74 98 09/18/21 10:55 94 H 09/18/21 10:00 93 H 20 128/78 98 09/18/21 09:20 15 98 09/18/21 09:08 94 H 135/81 09/18/21 09:02 90 16 100 09/18/21 08:55 93 H 153/93 98 09/18/21 08:00 103 H 22 153/93 99 09/18/21 07:21 106 H 25 H 100 09/18/21 07:13 99.2 F 09/18/21 07:00 100 H 23 148/93 100 09/18/21 06:00 96 H 18 156/89 100 09/18/21 05:00 98 H 20 163/85 99 09/18/21 04:39 104 H 150/88 100 09/18/21 04:00 98.7 F 99 H 62 19 150/88 99 09/18/21 03:00 109 H 19 161/79 97 09/18/21 02:00 104 H 24 144/93 97 09/18/21 01:00 98 H 20 158/89 97 09/18/21 00:44 95 H 160/96 98 09/18/21 00:30 94 H 23 160/96 98 09/18/21 00:00 100.2 F H 94 H 62 23 160/96 98 09/17/21 23:30 97 H 25 H 146/95 99 09/17/21 23:00 90 22 146/95 98 09/17/21 22:30 96 H 24 156/94 99 09/17/21 22:00 99 H 22 156/94 98 09/17/21 21:54 93 H 20 155/114 99 09/17/21 21:30 90 20 155/114 99 09/17/21 21:00 87 19 158/114 100 09/17/21 20:30 88 14 160/103 100 09/17/21 20:06 83 164/95 100 09/17/21 20:00 98.2 F 86 62 22 164/95 100 09/17/21 19:30 86 18 156/96 100 09/17/21 19:00 82 14 160/101 100 09/17/21 18:30 77 20 152/88 100 09/17/21 18:00 76 16 157/93 100 07/14/22 17:30 75 15 152/90 100 09/17/21 17:00 74 19 149/89 100 09/17/21 16:30 68 17 150/93 100 09/17/21 16:00 75 17 127/90 100 09/17/21 15:56 97.6 F 09/17/21 15:50 97.6 F 09/17/21 15:30 77 13 142/92 100 09/17/21 15:00 71 16 134/83 09/17/21 14:30 67 18 141/85 09/17/21 14:00 66 18 133/89 100 09/17/21 13:30 60 19 111/74 100 09/17/21 13:15 97.6 F 09/17/21 13:07 62 121/76 100 09/17/21 13:00 64 18 121/76 100 - Physical Examination General: Other (Intubated) HEENT: Positive: Mucus Membranes Dry Neck: Positive: trachea midline Cardiac: Positive: Reg Rate and Rhythm Lungs: Positive: Ventilated Respirations Neuro: Positive: Other (Unable to assess) Abdomen: Positive: Soft Skin: Negative: Rash, Suspicious Lesions, Ulceration Extremities: Present: upper extr. pulses. Absent: edema - Labs and Meds CBC 09/18/21 Range/Units Unknown WBC 7.9 (4.5-11.0) K/mm3 RBC 4.09 (3.65-5.03) M/mm3 Hgb 13.1 (11.8-15.2) gm/dl Hct 39.0 (35.5-45.6) % Plt Count 89 L (140-440) K/mm3 Comprehensive Metabolic Panel 09/17/21 09/18/21 Range/Units 09:18 Unknown Sodium 136 L (137-145) mmol/L Potassium 3.4 L 3.7 (3.6-5.0) mmol/L Chloride 106.0 (98-107) mmol/L Carbon Dioxide 22 (22-30) mmol/L BUN 9 (9-20) mg/dL Creatinine 0.6 L (0.8-1.3) mg/dL Glucose 134 H (75-100) mg/dL Calcium 8.2 L (8.4-10.2) mg/dL - Imaging and Cardiology EKG: pending, report reviewed Echo: report reviewed - EKG Sinus rhythms and dysrhythmias: sinus rhythm
--- NOTE | 2021-09-18 13:02 | Progress Note ---
Assessment and Plan Assessment and plan: This is a 66-year-old male with asthma, EtOH abuse, pancreatitis, legally blind, seizure disorder, HFrEF admitted with seizures, malignant hyperthermia, SVT, hypokalemia and hypomagnesemia Neuro: Amphetamine use, malignant hyperthermia, seizures, h/o EtOH use, legally blind, seizure disorder -Presented with temperature of 107.3 F -Neurology consulted, appreciate recommendations -Propofol on MAR if needed -RASS goal 0 to -1 -Reorientation as needed -Maintain sleep-wake cycle -Seizure precautions -As needed analgesia -CT head with no acute intracranial abnormality -MRI brain pending -Neurology recommends to continue Keppra 500 mg twice daily, Dilantin 100 mg 3 times daily -UDS positive for amphetamines -Neurology recommends follow-up with neurology within 2 weeks with seizure restrictions and placed into care of a neurologist -Bilateral wrist restraints in place for safety -EEG completed, pending read -Thiamine, folic acid Cardiac: SVT (resolved), h/o cardiomyopathy, HFrEF -Cardiology consulted, appreciate recommendations -S/p adenosine x3, Cardizem x2 and cardioversion, amiodarone x1 -Resume home losartan, aspirin, BB -Blood pressure monitoring per protocol -Echocardiogram pending -On chart review patient had an echocardiogram on 12/2020 which showed a EF of 30 to 35%, severe hypokinesis of the apex and values with hyperdynamic base suggesting stress cardiomyopathy -Echo 09/16/2021 shows EF 35 to 40%. Respiratory: Acute hypoxic respiratory failure -CCM consulted, appreciate recommendations -Intubated on 09/16 with 7.50 ETT at 24 the lips for airway protection in the ED -A.m. vent settings: Assist-control rate 22, tidal volume 450, PEEP 6, FiO2 30% -PSV as tolerated -See RT notes for titration -A.m. ABG and CXR noted -VAP bundle -SPO2 monitoring GI: Moderate protein calorie malnutrition -S/p Protonix and octreotide drip -PPI -NTR consulted for tube feedings -BR: Senna/Colace : Hypophsosphatemia, hypomagnesemia -Replete phosphate and magnesium -Monitor intake and output -Renally dose medications -Avoid nephrotoxic medications -Trend BMP ID: Lactic acidosis (resolved), gram-positive cocci in clusters (1/4 bottle - likely contaminate but given 1x dose of vanco), GNR in tracheal aspirate -Will wihthold abx d/t no fevers, leukocytes -UA with moderate LE -S/p vancomycin x1 -f/u blood culture -Monitor WBC and temperature curve Endo: NAD -Avoid hypoglycemia -Accu-Cheks q. 6 Heme: NAD -Positive guaiac but no signs of overt bleeding -Trend CBC -Transfuse hemoglobin less than 7 -SCDs to BLE while in bed The high probability of a clinically significant, sudden or life threatening deterioration of the [multi] system(s) required my full and direct attention, intervention and personal management. The aggregate critical care time was [60] minutes. This time is in addition to time spent performing reported procedures but includes the following: [x] Data Review and interpretation [x] Patient assessment and monitoring of vital signs [x] Documentation [x] Medication orders and management Disposition Plan: icu Total Time Spent with Patient (Minutes): 60 History Interval history: This is a 66-year-old male with asthma, EtOH abuse, pancreatitis, legally blind, seizure disorder, gout, heart failure with reduced EF and COVID-19 infection 03/2021) who presented to emergency department via EMS after being found with altered mental status and being "very warm to touch" after being found with a fall and winter jacket on. On arrival to the emergency department patient was on a nonrebreather and appeared to be tremulous and confused and not responding. Per EMS in route patient had SVT which was treated with 6 and 12 mg of adenosine with no effect. Upon arrival to the emergency department patient had ECG which revealed narrow regular supraventricular tachycardia with heart rate in the 1 70-1 80 and given the patient was confused and altered patient was given additional 12 mg of adenosine with no change and then synchronized cardioverted at 100 J which did not convert as well. After this patient was given Cardizem 20 mg x 1 and 25 mg x 1 which converted patient to sinus rhythm/ST. On arrival to the emergency department patient was also hypothermic at 107.3 F per documentation patient also had recurrent seizures in the ED and was intubated for airway protection and started on a Ativan drip. Patient also had a positive occult and was started on octreotide and Protonix drip. Patient's UDS was also positive for amphetamines and per teleneurology patient was recommended to be switched to midazolam if seizure activity persistent with lorazepam. Patient was admitted to the hospitalist service with acute hypoxic respiratory failure, malignant hyperthermia, seizures, hypomagnesemia, lactic acidosis and SVT with consults to [facility], cardiology and neurology. Hospital course to date: 09/17: Octreotide/Protonix drip discontinued, potassium replaced with IV KCl and repeat potassium 3.4 repleted with p.o. potassium. Antibiotics discontinued however this evening patient blood culture resulted with gram-positive cocci and he was given one-time dose of vancomycin. IV fluids discontinued, tube feeding started. MRI brain pending however unable to complete checklist due to altered mental status and no family in chart. Rate decreased on ventilator to 18 and repeat echocardiogram pending. 09/18: CPAP trials starting today. Resume home coreg. No acute events overnight. Hospitalist Physical - Constitutional Vitals: Temp Pulse Resp BP Pulse Ox 98.3 F 91 H 13 129/74 99 09/18/21 11:41 09/18/21 11:53 09/18/21 11:53 09/18/21 11:53 09/18/21 11:53 General appearance: Present: no acute distress, other (Intubated) - EENT Eyes: Present: PERRL, EOM intact ENT: poor dentition - Neck Neck: Present: normal ROM - Respiratory Respiratory effort: normal Respiratory: bilateral: CTA, diminished - Cardiovascular Rhythm: regular Heart Sounds: Present: S1 & S2. Absent: systolic murmur, diastolic murmur - Extremities Extremities: no ischemia, pulses intact, pulses symmetrical, No edema, normal temperature, normal color Peripheral Pulses: within normal limits - Abdominal General gastrointestinal: soft, non-tender, normal bowel sounds - Integumentary Integumentary: Present: warm, dry - Psychiatric Psychiatric: cooperative - Neurologic Neurologic: moves all extremities - Allied Health Allied health notes reviewed: nursing, RT, social work HEART Score - HEART Score Troponin: Troponin T < 0.010 ng/mL (0.00-0.029) 09/16/21 17:14 Results - Labs CBC & Chem 7: 09/18/21 Unknown 09/18/21 Unknown Labs: Laboratory Last Values WBC 7.9 K/mm3 (4.5-11.0) 09/18/21 Unknown RBC 4.09 M/mm3 (3.65-5.03) 09/18/21 Unknown Hgb 13.1 gm/dl (11.8-15.2) 09/18/21 Unknown Hct 39.0 % (35.5-45.6) 09/18/21 Unknown MCV 95 fl (84-94) H 09/18/21 Unknown MCH 32 pg (28-32) 09/18/21 Unknown MCHC 34 % (32-34) 09/18/21 Unknown RDW 13.2 % (13.2-15.2) 09/18/21 Unknown Plt Count 89 K/mm3 (140-440) L 09/18/21 Unknown Lymph % (Auto) 13.1 % (13.4-35.0) L 09/17/21 05:16 [place] % (Auto) 11.8 % (0.0-7.3) H 09/17/21 05:16 Eos % (Auto) 0.1 % (0.0-4.3) 09/17/21 05:16 Baso % (Auto) 0.1 % (0.0-1.8) 09/17/21 05:16 Lymph # (Auto) 0.7 K/mm3 (1.2-5.4) L 09/17/21 05:16 [place] # (Auto) 0.6 K/mm3 (0.0-0.8) 09/17/21 05:16 Eos # (Auto) 0.0 K/mm3 (0.0-0.4) 09/17/21 05:16 Baso # (Auto) 0.0 K/mm3 (0.0-0.1) 09/17/21 05:16 Seg Neutrophils % 74.9 % (40.0-70.0) H 09/17/21 05:16 Seg Neutrophils # 3.8 K/mm3 (1.8-7.7) 09/17/21 05:16 PT 16.1 Sec. (12.2-14.9) H 09/16/21 19:53 INR 1.16 (0.87-1.13) H 09/16/21 19:53 APTT 25.8 Sec. (24.2-36.6) 09/16/21 19:53 ABG pH 7.419 pH Units (7.350-7.450) 09/18/21 04:45 ABG pCO2 35.1 mm Hg 09/18/21 04:45 ABG pO2 107.9 mm Hg (80.0-90.0) H 09/18/21 04:45 ABG HCO3 22.2 mmol/L (20.0-26.0) 09/18/21 04:45 ABG O2 Saturation 98.0 % (95.0-99.0) 09/18/21 04:45 ABG O2 Content 18.1 (0.0-44) 09/18/21 04:45 ABG Base Excess -1.7 mmol/L (-2.0-3.0) 09/18/21 04:45 ABG Hemoglobin 13.3 gm/dl (14.0-18.0) L 09/18/21 04:45 ABG Carboxyhemoglobin 1.4 % (0.0-5.0) 09/18/21 04:45 ABG Methemoglobin 0.8 % (0.0-1.5) 09/18/21 04:45 Oxyhemoglobin 95.9 % (95.0-99.0) 09/18/21 04:45 FiO2 30 % 09/18/21 04:45 Sodium 136 mmol/L (137-145) L 09/18/21 Unknown Potassium 3.7 mmol/L (3.6-5.0) 09/18/21 Unknown Chloride 106.0 mmol/L (98-107) 09/18/21 Unknown Carbon Dioxide 22 mmol/L (22-30) 09/18/21 Unknown Anion Gap 12 mmol/L 09/18/21 Unknown BUN 9 mg/dL (9-20) 09/18/21 Unknown Creatinine 0.6 mg/dL (0.8-1.3) L 09/18/21 Unknown Estimated GFR > 60 ml/min 09/18/21 Unknown BUN/Creatinine Ratio 15 % 09/18/21 Unknown Glucose 134 mg/dL (75-100) H 09/18/21 Unknown POC Glucose 133 mg/dL (70-105) H 09/18/21 05:17 Lactic Acid 0.60 mmol/L (0.7-2.0) L 09/18/21 Unknown Calcium 8.2 mg/dL (8.4-10.2) L 09/18/21 Unknown Phosphorus 1.60 mg/dL (2.5-4.5) L 09/18/21 Unknown Magnesium 1.40 mg/dL (1.7-2.3) L 09/18/21 Unknown Total Bilirubin 0.70 mg/dL (0.1-1.2) 09/17/21 05:16 AST 21 units/L (5-40) 09/17/21 05:16 ALT 9 units/L (7-56) 09/17/21 05:16 Alkaline Phosphatase 62 units/L (35-129) 09/17/21 05:16 Total Creatine Kinase 95 units/L (55-170) 09/17/21 09:18 Troponin T < 0.010 ng/mL (0.00-0.029) 09/16/21 17:14 NT-Pro-B Natriuret Pep 342.9 pg/mL (0-900) 09/16/21 17:14 Total Protein 5.4 g/dL (6.3-8.2) L D 09/17/21 05:16 Albumin 3.1 g/dL (3.9-5) L 09/17/21 05:16 Albumin/Globulin Ratio 1.3 % 09/17/21 05:16 Urine Color (Yellow) 09/16/21 17:10 Urine Turbidity Cloudy (Clear) 09/16/21 17:10 Urine pH 5.0 (5.0-7.0) 09/16/21 17:10 Ur Specific [place] 1.023 (1.003-1.030) 09/16/21 17:10 Urine Protein 100 mg/dl mg/dL (Negative) 09/16/21 17:10 Urine Glucose (UA) Neg mg/dL (Negative) 09/16/21 17:10 Urine Ketones 80 mg/dL (Negative) 09/16/21 17:10 Urine Blood Sm (Negative) 09/16/21 17:10 Urine Nitrite Neg (Negative) 09/16/21 17:10 Urine Bilirubin Neg (Negative) 09/16/21 17:10 Urine Urobilinogen < 2.0 mg/dL (<2.0) 09/16/21 17:10 Ur Leukocyte Esterase Mod (Negative) 09/16/21 17:10 Urine WBC (Auto) 59.0 /HPF (0.0-6.0) H 09/16/21 17:10 Urine RBC (Auto) 8.0 /HPF (0.0-6.0) 09/16/21 17:10 U Epithel Cells (Auto) 1.0 /HPF (0-13.0) 09/16/21 17:10 Urine Bacteria (Auto) 2+ /HPF (Negative) 09/16/21 17:10 Hyaline Casts 152 /LPF 09/16/21 17:10 Urine Mucus 3+ /HPF 09/16/21 17:10 Urine Yeast (Budding) Not Reportable 09/16/21 17:10 Urine Opiates Screen Presumptive negative 09/16/21 17:13 Urine Methadone Screen Presumptive negative 09/16/21 17:13 Ur Barbiturates Screen Presumptive negative 09/16/21 17:13 Ur Phencyclidine Scrn Presumptive negative 09/16/21 17:13 Ur Amphetamines Screen Presumptive positive 09/16/21 17:13 U Benzodiazepines Scrn Presumptive negative 09/16/21 17:13 Urine Cocaine Screen Presumptive negative 09/16/21 17:13 U Marijuana (THC) Screen Presumptive negative 09/16/21 17:13 Drugs of Abuse Note Disclamer 09/16/21 17:13 Plasma/Serum Alcohol < 0.01 % (0-0.07) 09/16/21 18:17 Blood Type A POSITIVE 09/16/21 21:00 Antibody Screen Negative 09/16/21 21:00 Microbiology: Microbiology 09/17/21 01:50 Tracheal Aspirate Sputum Culture - Preliminary Gram Negative Geoffrey 09/16/21 17:10 Urine,Clean Catch Urine Culture - Preliminary NO GROWTH AFTER 24 HOURS 09/16/21 17:14 Peripheral/Venous Blood Culture - Preliminary NO GROWTH AFTER 24 HOURS 09/16/21 17:14 Peripheral/Venous Blood Culture - Preliminary [place]/IV: Voiding Method Indwelling Catheter Active Medications - Current Medications Current Medications: Generic Name Dose Route Start Last Admin Trade Name Freq PRN Reason Stop Dose Admin Acetaminophen 650 mg 09/16/21 23:25 Acetaminophen 325 Mg Tab PO Q4H PRN Pain MILD(1-3)/Fever >100.5/CAAL Albuterol 2.5 mg 09/16/21 23:25 Albuterol 2.5 Mg/3 Ml Nebu IH Q3HRT PRN Shortness Of Breath Aspirin 81 mg 09/17/21 10:00 09/18/21 09:07 Aspirin 81 Mg Tab Chew FEEDTUBE 81 mg QDAY DG Administration Carvedilol 6.25 mg 09/18/21 11:00 09/18/21 11:11 Carvedilol 6.25 Mg Tab FEEDTUBE 6.25 mg BID DG Administration Famotidine 20 mg 09/17/21 22:00 09/18/21 09:06 Famotidine 20 Mg Tab FEEDTUBE 20 mg BID DG Administration Folic Acid 1 mg 09/17/21 10:00 09/18/21 09:06 Folic Acid 1 Mg Tab FEEDTUBE 1 mg QDAY DG Administration Hydralazine HCl 10 mg 09/16/21 23:42 Hydralazine 20 Mg/1 Ml Inj IV Q6H PRN Blood Pressure Propofol 1,000 mg in 100 mls @ 1.869 mls/hr 09/17/21 12:00 Diprivan 10 Mg/Ml IV TITR DG Protocol 5 MCG/KG/MIN Magnesium Sulfate 4 gm in 100 mls @ 25 mls/hr 09/18/21 10:00 09/18/21 11:02 Magnesium Sulfate 4gm/100ml IV 09/18/21 14:00 25 mls/hr ONCE@1000 DG Administration Potassium Phosphate 30 mmol/ 510 mls @ 85 mls/hr 09/18/21 10:30 09/18/21 11:02 Sodium Chloride IV 09/18/21 16:30 85 mls/hr ONCE@1030 DG Administration Levetiracetam 1,500 mg 09/18/21 22:00 Levetiracetam 500 Mg/5 Ml Oral Liqd FEEDTUBE BID DG Losartan Potassium 25 mg 09/17/21 10:00 09/18/21 09:08 Losartan 25 Mg Tab FEEDTUBE 25 mg QDAY DG Administration Morphine Sulfate 2 mg 09/16/21 23:25 Morphine 2 Mg/1 Ml Inj IV Q4H PRN Pain, Moderate (4-6) Morphine Sulfate 4 mg 09/16/21 23:25 Morphine 4 Mg/1 Ml Inj IV Q4H PRN Pain , Severe (7-10) Ondansetron HCl 4 mg 09/16/21 23:25 Ondansetron 4 Mg/2 Ml Inj IV Q8H PRN Nausea And Vomiting Phenytoin 100 mg 09/17/21 14:00 09/18/21 06:10 Phenytoin 100 Mg/4 Ml Oral.Liqd FEEDTUBE 100 mg Q8HR DG Administration Senna/Docusate Sodium 1 tab 09/17/21 22:00 09/17/21 22:03 Sennosides/Docusate Sodium 8.6/50 Mg Tab FEEDTUBE 1 tab QHS DG Administration Sodium Chloride 10 ml 09/17/21 10:00 09/18/21 09:07 Sodium Chloride 0.9% 10 Ml Flush Syringe IV 10 ml BID DG Administration Sodium Chloride 10 ml 09/16/21 23:25 Sodium Chloride 0.9% 10 Ml Flush Syringe IV PRN PRN LINE FLUSH Thiamine HCl 100 mg 09/17/21 10:00 09/18/21 09:07 Thiamine 100 Mg Tab FEEDTUBE 100 mg QDAY DG Administration Nutrition/Malnutrition Assess - Dietary Evaluation Nutrition/Malnutrition Findings: Nutrition Notes Start: 09/17/21 11:59 Freq: Status: Active Protocol: Document 09/17/21 11:59 MACIEJ (Rec: 09/17/21 12:47 MACIEJ [email or web address]) Nutrition Notes Need for Assessment generated from: MD Order,hourly sign language interpreter,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 Labs/Tests 09/17: K 2.9, CO2 21, Glu 108, Ca 7.7. Pertinent Medications 09/17: D5ns @ 100 ml/hr, Folic acid, Thiamine, KCl 20mEq, Propofol @ 1.869 ml/hr (49 Kcal), others nutritionally unremarkable. 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 Weight Status Underweight Subjective/Other Information RD consult for skin risk, risk of malnutrition, and Low BMI assessments, and write/manage TF. Pt currently NPO. I will prescribe TF to provide Pt for energy/protein needs during LOS. Pt is on Mechanical Ventilation, O2 saturation @ 100%, according to Physical Assessment History notes. Pt presents unspecified rash and redness as signs of concern for skin risk at this time, according to Physical Assessment History notes. Pt presents underweight and EtOH dependence/pancreatitis as signs of concern for risk of malnutrition at this time, according to Physical Assessment History and History & Physical notes. Pt is homeless and legally blind, according to History & Physical notes. Pt's Low BMI seems to correspond to a natural body composition, probably not related to a sudden loss of body weight, but exacerbated by chronic malnutrition induced by EtOH dependence, since those signs of concern were mentioned in the Physical Assessment History and the History & Physical notes. Percent of energy/protein needs met: Pt currently NPO. Prescribed TF-Vital AF 1.2 Anton @ 60 ml/hr provides for energy/protein needs (1,715 Kcal/107 g) during LOS, 76% Kcal; 115% AA. Burn Absent Trauma Absent GI Symptoms None Food Allergy No Skin Integrity/Comment Unspecified rash and redness. 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 As Evidenced by Signs and Symptoms BMI 17.6 Kg/m2. #1 Nutrition Diagnosis Inadequate oral intake Etiology Pt in mechanical ventilation. As Evidenced by Signs and Symptoms Pt currently oin NPO. Is patient on ventilator? Yes Is Patient Ambulatory and/or Out of Bed No REE-([facility]-confined to bed) 1778.796 Kcal/Kg value to use for calculation 36 Approximate Energy Requirements Using 2243 kcal/Kg Calculation Used for Recommendations Kcal/kg Additional Notes Protein: 1.2-1.5 g/Kg ABW; 74- 93 g/day. Fluids: 1 ml/Kcal, or as per MD. Nutrition Intervention Nutrition Support: Start TF-Vital AF 1.2 Anton @ 60 ml/hr. Flush: 180 ml water Q 4 hr, or asper MD. Kcal 1,715 Protein (gm) 107 Carbohydrates (gm) 158 Fat (gm) 77 Fluid (mL) 1,159 Fiber (gm) 7 % RDI: 76% Kcal; 115% AA. Goal #1 Provide at least 75% of energy /protein needs through Enteral Feeding during LOS. Follow-Up By: 09/21/21 Additional Comments Start monitoring TF tolerance and BM.
[2021-09-18] MEDS ORDERED: levoFLOXacin 500 MG TAB FEEDTUBE SCH (14:00)
[2021-09-18] MEDS: SENNOSIDES/DOCUSATE SODIUM 8.6/50 MG TAB FEEDTUBE SCH (22:59)
[2021-09-18] MEDS: levETIRAcetam 500 MG/5 ML ORAL LIQD FEEDTUBE SCH (22:59)
[2021-09-19 05:12] LABS: ABG Base Excess 1.1 mmol/L (-2.0-3.0); ABG HCO3 25.5 mmol/L (20.0-26.0); ABG Methemoglobin 0.6 % (0.0-1.5); ABG Oxygen Saturation 98.1 % (95.0-99.0); ABG PCO2 39.6 mm Hg; ABG PH 7.427 pH Units (7.350-7.450); ABG PO2 110.7 mm Hg (80.0-90.0)
[2021-09-19] MEDS: PHENYTOIN 100 MG/4 ML ORAL.LIQD FEEDTUBE SCH ×3 (06:23→21:23)
[2021-09-19 06:25] LABS: Hematocrit 37.3 % (35.5-45.6); Hemoglobin 13.1 gm/dl (11.8-15.2); Mean Corpuscular HGB Conc 35 % (32-34); Mean Corpuscular Volume 95 fl (84-94); Red Blood Count 3.94 M/mm3 (3.65-5.03); Red Cell Distribution Width 13.4 % (13.2-15.2)
[2021-09-19 06:43] LABS: Platelet Count 88 K/mm3 (140-440)
[2021-09-19 06:45] LABS: Blood Urea Nitrogen 7 mg/dL (9-20); Calcium 8.2 mg/dL (8.4-10.2); Hemolysis Index 8
[2021-09-19 07:04] LABS: BUN/Creatinine Ratio 14
[2021-09-19] MEDS: MULTIVITAMIN / MINERAL ORAL LIQUID 15 ML FEEDTUBE SCH (09:10)
[2021-09-19] MEDS: FOLIC ACID 1 MG TAB FEEDTUBE SCH (09:10)
[2021-09-19] MEDS: THIAMINE 100 MG TAB FEEDTUBE SCH (09:10)
[2021-09-19] MEDS: carvediloL 6.25 MG TAB FEEDTUBE SCH ×2 (09:10→21:23)
[2021-09-19] MEDS: levETIRAcetam 500 MG/5 ML ORAL LIQD FEEDTUBE SCH ×2 (09:10→21:23)
[2021-09-19] MEDS: FAMOTIDINE 20 MG TAB FEEDTUBE SCH ×2 (09:10→21:23)
[2021-09-19] MEDS: LOSARTAN 25 MG TAB FEEDTUBE SCH (09:10)
[2021-09-19] MEDS: ASPIRIN 81 MG TAB CHEW FEEDTUBE SCH (09:10)
--- NOTE | 2021-09-19 11:38 | Progress Note ---
Assessment and Plan 66 y/o male with acute respiratory failure secondary to seizures, likely prompted by hyperthermia (multifactorial including drugs). 09/19/21: No sedation. EEG still not available. Monitor fluid balance. PSV as tolerated. 09/18/21: No sedation. Follow up EEG results. Echo results are stable with depressed EF. Continue PSV trials as tolerated. 1. Continue to monitor off sedation 2. There was question of GI bleed but no active bleeding seen and stable H/H, will stop PPI and octreotide 3. Does not appear to infectious causes for encephalopathy and or fever, will stop abx therapy 4. Agree with EEG for seizures, especially given lack of improvement in mental state. Tele neuro seeing patient 5. Feed patient 6. Cards consulted. Prior echo shows and EF of 30%, repeating today. cct 31 minutes Subjective Date of service: 09/19/21 Principal diagnosis: AMS, Malignant Hyperthermia, SVT, Overdose? Interval history: Still not awake enough. Had to be placed back on rate secondary to continuous vent alarms for apnea Objective Vital Signs - 12hr 09/18/21 09/19/21 09/19/21 23:43 00:00 01:00 Temperature 98.5 F Pulse Rate 82 78 72 Pulse Rate [ 86 From Monitor] Respiratory 18 19 Rate Blood Pressure 168/99 139/77 131/80 O2 Sat by Pulse 100 99 100 Oximetry 09/19/21 09/19/21 09/19/21 02:00 03:00 03:25 Temperature Pulse Rate 72 75 80 Pulse Rate [ From Monitor] Respiratory 18 18 Rate Blood Pressure 142/77 123/71 123/71 O2 Sat by Pulse 100 99 100 Oximetry 09/19/21 09/19/21 09/19/21 04:00 05:00 06:00 Temperature 98.3 F Pulse Rate 74 91 H 74 Pulse Rate [ 86 From Monitor] Respiratory 18 25 H 18 Rate Blood Pressure 141/85 141/85 155/88 O2 Sat by Pulse 99 99 100 Oximetry 09/19/21 09/19/21 09/19/21 07:00 08:00 08:01 Temperature 99.1 F Pulse Rate 74 72 69 Pulse Rate [ 86 From Monitor] Respiratory 18 20 Rate Blood Pressure 139/76 142/85 142/85 O2 Sat by Pulse 100 100 100 Oximetry 09/19/21 09/19/21 09/19/21 08:08 09:00 09:10 Temperature Pulse Rate 68 69 71 Pulse Rate [ From Monitor] Respiratory 15 Rate Blood Pressure 142/85 148/83 148/83 O2 Sat by Pulse 102 H 100 Oximetry 09/19/21 10:00 Temperature Pulse Rate 80 Pulse Rate [ From Monitor] Respiratory 17 Rate Blood Pressure 148/83 O2 Sat by Pulse 100 Oximetry CBC and BMP: 09/19/21 05:59 09/19/21 05:59 ABG, PT/INR, D-dimer: ABG ABG pH 7.427 pH Units (7.350-7.450) 09/19/21 03:35 ABG pCO2 39.6 mm Hg 09/19/21 03:35 ABG pO2 110.7 mm Hg (80.0-90.0) H 09/19/21 03:35 ABG O2 Saturation 98.1 % (95.0-99.0) 09/19/21 03:35 PT/INR, D-dimer PT 16.1 Sec. (12.2-14.9) H 09/16/21 19:53 INR 1.16 (0.87-1.13) H 09/16/21 19:53 Abnormal lab findings: Abnormal Labs 09/16/21 09/16/21 09/16/21 16:59 17:10 17:14 Hct MCV 96 H MCH 33 H MCHC Plt Count Lymph % (Auto) Pender % (Auto) 7.9 H Lymph # (Auto) Seg Neutrophils % PT INR ABG pH ABG pO2 ABG O2 Saturation ABG Base Excess ABG Hemoglobin Sodium Potassium Carbon Dioxide BUN Creatinine Glucose POC Glucose 144 H Lactic Acid Calcium Phosphorus Magnesium Total Protein Albumin Urine WBC (Auto) 59.0 H 09/16/21 09/16/21 09/16/21 17:14 17:14 19:53 Hct MCV MCH MCHC Plt Count Lymph % (Auto) Pender % (Auto) Lymph # (Auto) Seg Neutrophils % PT 16.1 H INR 1.16 H ABG pH ABG pO2 ABG O2 Saturation ABG Base Excess ABG Hemoglobin Sodium 135 L Potassium 5.2 H Carbon Dioxide 16 L BUN Creatinine Glucose 130 H POC Glucose Lactic Acid 3.20 H* Calcium Phosphorus Magnesium 1.40 L Total Protein Albumin Urine WBC (Auto) 09/16/21 09/17/21 09/17/21 20:00 05:10 05:16 Hct 35.0 L D MCV 95 H MCH 33 H MCHC 35 H Plt Count 87 L Lymph % (Auto) 13.1 L Pender % (Auto) 11.8 H Lymph # (Auto) 0.7 L Seg Neutrophils % 74.9 H PT INR ABG pH 7.333 L ABG pO2 433.9 H 120.3 H ABG O2 Saturation 99.6 H ABG Base Excess -3.5 L -4.3 L ABG Hemoglobin 13.1 L 12.1 L Sodium Potassium Carbon Dioxide BUN Creatinine Glucose POC Glucose Lactic Acid Calcium Phosphorus Magnesium Total Protein Albumin Urine WBC (Auto) 09/17/21 09/17/21 09/18/21 05:16 09:18 00:10 Hct MCV MCH MCHC Plt Count Lymph % (Auto) Pender % (Auto) Lymph # (Auto) Seg Neutrophils % PT INR ABG pH ABG pO2 ABG O2 Saturation ABG Base Excess ABG Hemoglobin Sodium Potassium 2.9 L* D 3.4 L Carbon Dioxide 21 L BUN Creatinine Glucose 108 H POC Glucose 116 H Lactic Acid Calcium 7.7 L D Phosphorus Magnesium Total Protein 5.4 L D Albumin 3.1 L Urine WBC (Auto) 09/18/21 09/18/21 09/18/21 04:45 05:17 Unknown Hct MCV 95 H MCH MCHC Plt Count 89 L Lymph % (Auto) Pender % (Auto) Lymph # (Auto) Seg Neutrophils % PT INR ABG pH ABG pO2 107.9 H ABG O2 Saturation ABG Base Excess ABG Hemoglobin 13.3 L Sodium Potassium Carbon Dioxide BUN Creatinine Glucose POC Glucose 133 H Lactic Acid Calcium Phosphorus Magnesium Total Protein Albumin Urine WBC (Auto) 09/18/21 09/18/21 09/19/21 Unknown Unknown 00:27 Hct MCV MCH MCHC Plt Count Lymph % (Auto) Pender % (Auto) Lymph # (Auto) Seg Neutrophils % PT INR ABG pH ABG pO2 ABG O2 Saturation ABG Base Excess ABG Hemoglobin Sodium 136 L Potassium Carbon Dioxide BUN Creatinine 0.6 L Glucose 134 H POC Glucose 107 H Lactic Acid 0.60 L Calcium 8.2 L Phosphorus 1.60 L Magnesium 1.40 L Total Protein Albumin Urine WBC (Auto) 09/19/21 09/19/21 09/19/21 03:35 05:59 05:59 Hct MCV 95 H MCH 33 H MCHC 35 H Plt Count 88 L Lymph % (Auto) Pender % (Auto) Lymph # (Auto) Seg Neutrophils % PT INR ABG pH ABG pO2 110.7 H ABG O2 Saturation ABG Base Excess ABG Hemoglobin 10.8 L Sodium 133 L Potassium 3.4 L Carbon Dioxide BUN 7 L Creatinine 0.5 L Glucose 116 H POC Glucose Lactic Acid Calcium 8.2 L Phosphorus 2.10 L D Magnesium 1.40 L Total Protein Albumin Urine WBC (Auto)
[2021-09-19] MEDS ORDERED: MAGNESIUM SULFATE 4 GM/100 ML BAG IV ONE (13:30)
--- NOTE | 2021-09-19 13:51 | Progress Note ---
Assessment and Plan Assessment: AMS Seizures Acute Respiratory Failure Malignant Hyperthermia +Amphetamine UDS Paroxysmal SVT CMP (EF 30-35% on echo 12/2020, 35-40% on echo this admission) Asthma H/o EtOH Abuse H/o Pancreatitis Echo 12/15/2020: EF 30 to 35%. Left ventricle is mildly dilated. Severe hypokinesis is noted on the whole apex with a relative hyperdynamic base for suggestive of stress cardiomyopathy. Left atrium is mildly dilated. Right ventricular systolic function is normal. Ascending aorta mildly dilated. Echo 09/16/2021: EF 35 to 40%. Right ventricle systolic function is normal. Right ventricle is mildly dilated. Aortic valve is normal in structure no aortic regurgitation. Trace mitral regurgitation. Trace tricuspid regurgitation. Plan: Previous tachyarrhythmia secondary to amphetamine use +/- hyperthermia +/- electrolyte abnormalities. Maintaining SR on tele with occasional PACs. Continue Coreg 6.25mg BID and Losartan 25mg daily. PRN correction of electrolytes per Primary. Pt seen in conjunction with Dr. Vu, who agrees with the assessment and plan of care. - Patient Problems (1) SVT (supraventricular tachycardia) Current Visit: Yes Status: Acute (2) Seizures Current Visit: Yes Status: Acute (3) Cardiomyopathy Current Visit: Yes Status: Chronic Subjective Date of service: 09/19/21 Principal diagnosis: ?SVT Interval history: Remains intubated. No acute events overnight. SR 70s on tele this AM. Objective Vital Signs Temp Pulse Pulse Resp BP Pulse Ox 09/19/21 12:00 99 F 72 86 20 140/80 100 09/19/21 11:39 75 141/86 100 09/19/21 11:00 77 16 141/86 100 09/19/21 10:00 80 17 148/83 100 09/19/21 09:10 71 148/83 09/19/21 09:00 69 15 148/83 100 09/19/21 08:08 68 142/85 100 09/19/21 08:01 69 142/85 100 09/19/21 08:00 99.1 F 72 86 20 142/85 100 09/19/21 07:00 74 18 139/76 100 09/19/21 06:00 74 18 155/88 100 09/19/21 05:00 91 H 25 H 141/85 99 09/19/21 04:00 98.3 F 74 86 18 141/85 99 09/19/21 03:25 80 123/71 100 09/19/21 03:00 75 18 123/71 99 09/19/21 02:00 72 18 142/77 100 09/19/21 01:00 72 19 131/80 100 09/19/21 00:00 98.5 F 78 86 18 139/77 99 09/18/21 23:43 82 168/99 100 09/18/21 23:00 91 H 17 168/99 100 09/18/21 22:58 87 163/94 09/18/21 22:00 98 H 26 H 163/94 98 09/18/21 21:16 91 H 145/83 100 09/18/21 21:10 84 21 145/83 99 09/18/21 21:00 88 20 145/83 98 09/18/21 20:00 99.2 F 85 86 20 149/85 100 09/18/21 19:00 91 H 30 H 154/79 99 09/18/21 18:00 90 18 117/69 99 09/18/21 17:00 76 22 117/69 100 09/18/21 16:11 86 20 100 09/18/21 16:06 99.9 F H 09/18/21 16:05 83 14 105/60 100 09/18/21 16:00 83 22 123/66 100 09/18/21 15:00 81 10 L 105/60 99 09/18/21 14:00 83 19 99/58 98 - Physical Examination General: Other (Intubated) HEENT: Positive: Normocephaly Neck: Negative: JVD/HJR Cardiac: Positive: Reg Rate and Rhythm Lungs: Positive: Ventilated Respirations Neuro: Positive: Other Abdomen: Positive: Soft Skin: Negative: Rash Extremities: Present: upper extr. pulses. Absent: edema - Labs and Meds CBC 09/19/21 Range/Units 05:59 WBC 7.6 (4.5-11.0) K/mm3 RBC 3.94 (3.65-5.03) M/mm3 Hgb 13.1 (11.8-15.2) gm/dl Hct 37.3 (35.5-45.6) % Plt Count 88 L (140-440) K/mm3 Comprehensive Metabolic Panel 09/19/21 Range/Units 05:59 Sodium 133 L (137-145) mmol/L Potassium 3.4 L (3.6-5.0) mmol/L Chloride 100.1 (98-107) mmol/L Carbon Dioxide 25 (22-30) mmol/L BUN 7 L (9-20) mg/dL Creatinine 0.5 L (0.8-1.3) mg/dL Glucose 116 H (75-100) mg/dL Calcium 8.2 L (8.4-10.2) mg/dL - Imaging and Cardiology EKG: report reviewed, image reviewed Echo: report reviewed - Telemetry EKG Rhythm: Sinus Rhythm - Allied health notes Allied health notes reviewed: nursing
[2021-09-19] MEDS ORDERED: POTASSIUM PHOSPHATE 30 MMOL in SODIUM CHLORIDE 0.9% 500 ML 500 ML IV ONE (14:00)
--- NOTE | 2021-09-19 16:19 | Progress Note ---
<SHANEJasonADDISONMaria M - Last Filed: 09/19/21 16:15> Assessment and Plan Assessment and plan: This is a 66-year-old male with asthma, EtOH abuse, pancreatitis, legally blind, seizure disorder, HFrEF admitted with seizures, malignant hyperthermia, SVT, hypokalemia and hypomagnesemia Neuro: Amphetamine use, malignant hyperthermia, seizures, h/o EtOH use, legally blind, seizure disorder -Presented with temperature of 107.3 F -Neurology consulted, appreciate recommendations -Propofol on MAY if needed -RASS goal 0 to -1 -Reorientation as needed -Maintain sleep-wake cycle -Seizure precautions -As needed analgesia -CT head with no acute intracranial abnormality -MRI brain pending -Neurology recommends to continue Keppra 500 mg twice daily, Dilantin 100 mg 3 times daily -UDS positive for amphetamines -Neurology recommends follow-up with neurology within 2 weeks with seizure restrictions and placed into care of a neurologist -Bilateral wrist restraints in place for safety -EEG completed, pending read -Thiamine, folic acid Cardiac: SVT (resolved), h/o cardiomyopathy, HFrEF -Cardiology consulted, appreciate recommendations -S/p adenosine x3, Cardizem x2 and cardioversion, amiodarone x1 -Resume home losartan, aspirin, BB -Blood pressure monitoring per protocol -On chart review patient had an echocardiogram on 12/2020 which showed a EF of 30 to 35%, severe hypokinesis of the apex and values with hyperdynamic base suggesting stress cardiomyopathy -Echo 09/16/2021 shows EF 35 to 40%. Respiratory: Acute hypoxic respiratory failure -CCM consulted, appreciate recommendations -Intubated on 09/16 with 7.50 ETT at 24 the lips for airway protection in the ED -A.m. vent settings: Assist-control rate 22, tidal volume 450, PEEP 6, FiO2 30% -PSV as tolerated -See RT notes for titration -A.m. ABG and CXR noted -VAP bundle -SPO2 monitoring GI: Moderate protein calorie malnutrition, h/o pancreatitis -S/p Protonix and octreotide drip -PPI -NTR consulted for tube feedings -BR: Senna/Colace : Hypophsosphatemia, hypomagnesemia -Replete phosphate and magnesium -Monitor intake and output -Renally dose medications -Avoid nephrotoxic medications -Trend BMP ID: Gram-positive cocci in clusters (03/10 bottle -likely contaminate but given 1x dose of vanco), Ecoli in tracheal aspirate -Will wihthold abx d/t no fevers, leukocytes -UA with moderate LE -S/p vancomycin x1 -abx: levofloxacin -f/u blood culture -Monitor WBC and temperature curve Endo: NAD -Avoid hypoglycemia -Accu-Cheks q. 6 Heme: NAD -Positive guaiac but no signs of overt bleeding -Trend CBC -Transfuse hemoglobin less than 7 -SCDs to BLE while in bed The high probability of a clinically significant, sudden or life threatening deterioration of the [multi] system(s) required my full and direct attention, intervention and personal management. The aggregate critical care time was [60] minutes. This time is in addition to time spent performing reported procedures but includes the following: [x] Data Review and interpretation [x] Patient assessment and monitoring of vital signs [x] Documentation [x] Medication orders and management Disposition Plan: icu Total Time Spent with Patient (Minutes): 60 History Interval history: This is a 66-year-old male with asthma, EtOH abuse, pancreatitis, legally blind, seizure disorder, gout, heart failure with reduced EF and COVID-19 infection 03/2021) who presented to emergency department via EMS after being found with altered mental status and being "very warm to touch" after being found with a fall and winter jacket on. On arrival to the emergency department patient was on a nonrebreather and appeared to be tremulous and confused and not responding. Per EMS in route patient had SVT which was treated with 6 and 12 mg of adenosine with no effect. Upon arrival to the emergency department patient had ECG which revealed narrow regular supraventricular tachycardia with heart rate in the 1 70-1 80 and given the patient was confused and altered patient was given additional 12 mg of adenosine with no change and then synchronized cardioverted at 100 J which did not convert as well. After this patient was given Cardizem 20 mg x 1 and 25 mg x 1 which converted patient to sinus rhyt hm/ST. On arrival to the emergency department patient was also hypothermic at 107.3 F per documentation patient also had recurrent seizures in the ED and was intubated for airway protection and started on a Ativan drip. Patient also had a positive occult and was started on octreotide and Protonix drip. Patient's UDS was also positive for amphetamines and per teleneurology patient was recommended to be switched to midazolam if seizure activity persistent with lorazepam. Patient was admitted to the hospitalist service with acute hypoxic respiratory failure, malignant hyperthermia, seizures, hypomagnesemia, lactic acidosis and SVT with consults to [facility], cardiology and neurology. Hospital course to date: 09/17: Octreotide/Protonix drip discontinued, potassium replaced with IV KCl and repeat potassium 3.4 repleted with p.o. potassium. Antibiotics discontinued h owever this evening patient blood culture resulted with gram-positive cocci and he was given one-time dose of vancomycin. IV fluids discontinued, tube feeding started. MRI brain pending however unable to complete checklist due to altered mental status and no family in chart. Rate decreased on ventilator to 18 and repeat echocardiogram pending. 09/18: CPAP trials starting today. Resume home coreg. No acute events overnight. 09/19: Patient on CPAP trial today however was switched back to assist control. Intermittently following commands. No acute events reported overnight. Hypokalemia, hypophosphatemia and hypomagnesemia repleted. Hospitalist Physical - Constitutional Vitals: Temp Pulse Resp BP Pulse Ox 99 F 77 16 154/84 100 09/19/21 12:00 09/19/21 15:53 09/19/21 14:00 09/19/21 15:53 09/19/21 15:53 General appearance: Present: no acute distress, other (Intubated) - EENT Eyes: Present: PERRL, EOM intact ENT: hearing intact, poor dentition - Neck Neck: Present: normal ROM - Respiratory Respiratory effort: normal Respiratory: bilateral: CTA - Cardiovascular Rhythm: regular Heart Sounds: Present: S1 & S2. Absent: systolic murmur, diastolic murmur - Extremities Extremities: no ischemia, pulses intact, pulses symmetrical, No edema, normal temperature, normal color Peripheral Pulses: within normal limits - Abdominal General gastrointestinal: soft, non-tender, non-distended, normal bowel sounds - Integumentary Integumentary: Present: warm, dry - Psychiatric Psychiatric: cooperative - Neurologic Neurologic: moves all extremities - Allied Health Allied health notes reviewed: nursing, RT HEART Score - HEART Score Troponin: Troponin T < 0.010 ng/mL (0.00-0.029) 09/16/21 17:14 Results - Labs CBC & Chem 7: 09/19/21 05:59 09/19/21 05:59 Labs: Laboratory Last Values WBC 7.6 K/mm3 (4.5-11.0) 09/19/21 05:59 RBC 3.94 M/mm3 (3.65-5.03) 09/19/21 05:59 Hgb 13.1 gm/dl (11.8-15.2) 09/19/21 05:59 Hct 37.3 % (35.5-45.6) 09/19/21 05:59 MCV 95 fl (84-94) H 09/19/21 05:59 MCH 33 pg (28-32) H 09/19/21 05:59 MCHC 35 % (32-34) H 09/19/21 05:59 RDW 13.4 % (13.2-15.2) 09/19/21 05:59 Plt Count 88 K/mm3 (140-440) L 09/19/21 05:59 Lymph % (Auto) 13.1 % (13.4-35.0) L 09/17/21 05:16 Anderson % (Auto) 11.8 % (0.0-7.3) H 09/17/21 05:16 Eos % (Auto) 0.1 % (0.0-4.3) 09/17/21 05:16 Baso % (Auto) 0.1 % (0.0-1.8) 09/17/21 05:16 Lymph # (Auto) 0.7 K/mm3 (1.2-5.4) L 09/17/21 05:16 Anderson # (Auto) 0.6 K/mm3 (0.0-0.8) 09/17/21 05:16 Eos # (Auto) 0.0 K/mm3 (0.0-0.4) 09/17/21 05:16 Baso # (Auto) 0.0 K/mm3 (0.0-0.1) 09/17/21 05:16 Seg Neutrophils % 74.9 % (40.0-70.0) H 09/17/21 05:16 Seg Neutrophils # 3.8 K/mm3 (1.8-7.7) 09/17/21 05:16 PT 16.1 Sec. (12.2-14.9) H 09/16/21 19:53 INR 1.16 (0.87-1.13) H 09/16/21 19:53 APTT 25.8 Sec. (24.2-36.6) 09/16/21 19:53 ABG pH 7.427 pH Units (7.350-7.450) 09/19/21 03:35 ABG pCO2 39.6 mm Hg 09/19/21 03:35 ABG pO2 110.7 mm Hg (80.0-90.0) H 09/19/21 03:35 ABG HCO3 25.5 mmol/L (20.0-26.0) 09/19/21 03:35 ABG O2 Saturation 98.1 % (95.0-99.0) 09/19/21 03:35 ABG O2 Content 14.8 (0.0-44) 09/19/21 03:35 ABG Base Excess 1.1 mmol/L (-2.0-3.0) 09/19/21 03:35 ABG Hemoglobin 10.8 gm/dl (14.0-18.0) L 09/19/21 03:35 ABG Carboxyhemoglobin 1.5 % (0.0-5.0) 09/19/21 03:35 ABG Methemoglobin 0.6 % (0.0-1.5) 09/19/21 03:35 Oxyhemoglobin 96.0 % (95.0-99.0) 09/19/21 03:35 FiO2 30 % 09/19/21 03:35 Sodium 133 mmol/L (137-145) L 09/19/21 05:59 Potassium 3.4 mmol/L (3.6-5.0) L 09/19/21 05:59 Chloride 100.1 mmol/L (98-107) 09/19/21 05:59 Carbon Dioxide 25 mmol/L (22-30) 09/19/21 05:59 Anion Gap 11 mmol/L 09/19/21 05:59 BUN 7 mg/dL (9-20) L 09/19/21 05:59 Creatinine 0.5 mg/dL (0.8-1.3) L 09/19/21 05:59 Estimated GFR > 60 ml/min 09/19/21 05:59 BUN/Creatinine Ratio 14 % 09/19/21 05:59 Glucose 116 mg/dL (75-100) H 09/19/21 05:59 POC Glucose 107 mg/dL (70-105) H 09/19/21 00:27 Lactic Acid 0.60 mmol/L (0.7-2.0) L 09/18/21 Unknown Calcium 8.2 mg/dL (8.4-10.2) L 09/19/21 05:59 Phosphorus 2.10 mg/dL (2.5-4.5) L D 09/19/21 05:59 Magnesium 1.40 mg/dL (1.7-2.3) L 09/19/21 05:59 Total Bilirubin 0.70 mg/dL (0.1-1.2) 09/17/21 05:16 AST 21 units/L (5-40) 09/17/21 05:16 ALT 9 units/L (7-56) 09/17/21 05:16 Alkaline Phosphatase 62 units/L (35-129) 09/17/21 05:16 Total Creatine Kinase 95 units/L (55-170) 09/17/21 09:18 Troponin T < 0.010 ng/mL (0.00-0.029) 09/16/21 17:14 NT-Pro-B Natriuret Pep 342.9 pg/mL (0-900) 09/16/21 17:14 Total Protein 5.4 g/dL (6.3-8.2) L D 09/17/21 05:16 Albumin 3.1 g/dL (3.9-5) L 09/17/21 05:16 Albumin/Globulin Ratio 1.3 % 09/17/21 05:16 Urine Color (Yellow) 09/16/21 17:10 Urine Turbidity Cloudy (Clear) 09/16/21 17:10 Urine pH 5.0 (5.0-7.0) 09/16/21 17:10 Ur Specific [place] 1.023 (1.003-1.030) 09/16/21 17:10 Urine Protein 100 mg/dl mg/dL (Negative) 09/16/21 17:10 Urine Glucose (UA) Neg mg/dL (Negative) 09/16/21 17:10 Urine Ketones 80 mg/dL (Negative) 09/16/21 17:10 Urine Blood Sm (Negative) 09/16/21 17:10 Urine Nitrite Neg (Negative) 09/16/21 17:10 Urine Bilirubin Neg (Negative) 09/16/21 17:10 Urine Urobilinogen < 2.0 mg/dL (<2.0) 09/16/21 17:10 Ur Leukocyte Esterase Mod (Negative) 09/16/21 17:10 Urine WBC (Auto) 59.0 /HPF (0.0-6.0) H 09/16/21 17:10 Urine RBC (Auto) 8.0 /HPF (0.0-6.0) 09/16/21 17:10 U Epithel Cells (Auto) 1.0 /HPF (0-13.0) 09/16/21 17:10 Urine Bacteria (Auto) 2+ /HPF (Negative) 09/16/21 17:10 Hyaline Casts 152 /LPF 09/16/21 17:10 Urine Mucus 3+ /HPF 09/16/21 17:10 Urine Yeast (Budding) Not Reportable 09/16/21 17:10 Urine Opiates Screen Presumptive negative 09/16/21 17:13 Urine Methadone Screen Presumptive negative 09/16/21 17:13 Ur Barbiturates Screen Presumptive negative 09/16/21 17:13 Ur Phencyclidine Scrn Presumptive negative 09/16/21 17:13 Ur Amphetamines Screen Presumptive positive 09/16/21 17:13 U Benzodiazepines Scrn Presumptive negative 09/16/21 17:13 Urine Cocaine Screen Presumptive negative 09/16/21 17:13 U Marijuana (THC) Screen Presumptive negative 09/16/21 17:13 Drugs of Abuse Note Disclamer 09/16/21 17:13 Plasma/Serum Alcohol < 0.01 % (0-0.07) 09/16/21 18:17 Blood Type A POSITIVE 09/16/21 21:00 Antibody Screen Negative 09/16/21 21:00 Microbiology: Microbiology 09/16/21 17:10 Urine,Clean Catch Urine Culture - Final NO GROWTH AFTER 48 HOURS 09/16/21 17:14 Peripheral/Venous Blood Culture - Preliminary NO GROWTH AFTER 48 HOURS 09/16/21 17:14 Peripheral/Venous Blood Culture - Preliminary Coag Negative Staphylococcus 09/17/21 01:50 Tracheal Aspirate Sputum Culture - Final Escherichia Coli Bahena/IV: Voiding Method Condom Catheter Active Medications - Current Medications Current Medications: Generic Name Dose Route Start Last Admin Trade Name Freq PRN Reason Stop Dose Admin Acetaminophen 650 mg 09/16/21 23:25 Acetaminophen 325 Mg Tab PO Q4H PRN Pain MILD(1-3)/Fever >100.5/CAAL Albuterol 2.5 mg 09/16/21 23:25 Albuterol 2.5 Mg/3 Ml Nebu IH Q3HRT PRN Shortness Of Breath Aspirin 81 mg 09/17/21 10:00 09/19/21 09:10 Aspirin 81 Mg Tab Chew FEEDTUBE 81 mg QDAY DG Administration Carvedilol 6.25 mg 09/18/21 11:00 09/19/21 09:10 Carvedilol 6.25 Mg Tab FEEDTUBE 6.25 mg BID DG Administration Famotidine 20 mg 09/17/21 22:00 09/19/21 09:10 Famotidine 20 Mg Tab FEEDTUBE 20 mg BID DG Administration Folic Acid 1 mg 09/17/21 10:00 09/19/21 09:10 Folic Acid 1 Mg Tab FEEDTUBE 1 mg QDAY DG Administration Hydralazine HCl 10 mg 09/16/21 23:42 Hydralazine 20 Mg/1 Ml Inj IV Q6H PRN Blood Pressure Propofol 1,000 mg in 100 mls @ 1.869 mls/hr 09/17/21 12:00 Diprivan 10 Mg/Ml IV TITR DG Protocol 5 MCG/KG/MIN Levofloxacin/Dextrose 750 mg in 150 mls @ 100 mls/hr 09/18/21 15:00 09/18/21 14:39 Levaquin 750mg/150ml IV 09/23/21 14:59 100 mls/hr Q24H DG Administration Protocol Magnesium Sulfate 4 gm in 100 mls @ 25 mls/hr 09/19/21 13:30 09/19/21 13:31 Magnesium Sulfate 4gm/100ml IV 09/19/21 17:29 25 mls/hr ONCE ONE Administration Potassium Phosphate 30 mmol/ 510 mls @ 83 mls/hr 09/19/21 14:00 09/19/21 14:45 Sodium Chloride IV 09/19/21 20:08 83 mls/hr ONCE ONE Administration Levetiracetam 1,500 mg 09/18/21 22:00 09/19/21 09:10 Levetiracetam 500 Mg/5 Ml Oral Liqd FEEDTUBE 1,500 mg BID DG Administration Losartan Potassium 25 mg 09/17/21 10:00 09/19/21 09:10 Losartan 25 Mg Tab FEEDTUBE 25 mg QDAY DG Administration Morphine Sulfate 2 mg 09/16/21 23:25 Morphine 2 Mg/1 Ml Inj IV Q4H PRN Pain, Moderate (4-6) Morphine Sulfate 4 mg 09/16/21 23:25 Morphine 4 Mg/1 Ml Inj IV Q4H PRN Pain , Severe (7-10) Ondansetron HCl 4 mg 09/16/21 23:25 Ondansetron 4 Mg/2 Ml Inj IV Q8H PRN Nausea And Vomiting Phenytoin 100 mg 09/17/21 14:00 09/19/21 13:31 Phenytoin 100 Mg/4 Ml Oral.Liqd FEEDTUBE 100 mg Q8HR DG Administration Senna/Docusate Sodium 1 tab 09/17/21 22:00 09/18/21 22:59 Sennosides/Docusate Sodium 8.6/50 Mg Tab FEEDTUBE Not Given QHS DG Sodium Chloride 10 ml 09/17/21 10:00 09/19/21 09:11 Sodium Chloride 0.9% 10 Ml Flush Syringe IV 10 ml BID DG Administration Sodium Chloride 10 ml 09/16/21 23:25 Sodium Chloride 0.9% 10 Ml Flush Syringe IV PRN PRN LINE FLUSH Thiamine HCl 100 mg 09/17/21 10:00 09/19/21 09:10 Thiamine 100 Mg Tab FEEDTUBE 100 mg QDAY DG Administration Nutrition/Malnutrition Assess - Dietary Evaluation Nutrition/Malnutrition Findings: Nutrition Notes Start: 09/17/21 11:59 Freq: Status: Active Protocol: Document 09/17/21 11:59 MACIEJ (Rec: 09/17/21 12:47 MACIEJ [id number]) Nutrition Notes Need for Assessment 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 Labs/Tests 09/17: K 2.9, CO2 21, Glu 108, Ca 7.7. Pertinent Medications 09/17: D5ns @ 100 ml/hr, Folic acid, Thiamine, KCl 20mEq, Propofol @ 1.869 ml/hr (49 Kcal), others nutritionally unremarkable. 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 Pt currently NPO. I will prescribe TF to provide Pt for energy/protein needs during LOS. Pt is on Mechanical Ventilation, O2 saturation @ 100%, according to Physical Assessment History notes. Pt presents unspecified rash and redness as signs of concern for skin risk at this time, according to Physical Assessment History notes. Pt presents underweight and EtOH dependence/pancreatitis as signs of concern for risk of malnutrition at this time, according to Physical Assessment History and History & Physical notes. Pt is homeless and legally blind, according to History & Physical notes. Pt's Low BMI seems to correspond to a natural body composition, probably not related to a sudden loss of body weight, but exacerbated by chronic malnutrition induced by EtOH dependence, since those signs of concern were mentioned in the Physical Assessment History and the History & Physical notes. Percent of energy/protein needs met: Pt currently NPO. Prescribed TF-Vital AF 1.2 Anton @ 60 ml/hr provides for energy/protein needs (1,715 Kcal/107 g) during LOS, 76% Kcal; 115% AA. Burn Absent Trauma Absent GI Symptoms None Food Allergy No Skin Integrity/Comment Unspecified rash and redness. Current % PO Other Fluid Accumulation N/A Reduced Coal Passer Strength N/A (non-severe) Protein-Calorie Malnutrition N\\A #2 Nutrition Diagnosis Underweight Etiology Possibly secondary to EtOH dependence. As Evidenced by Signs and Symptoms BMI 17.6 Kg/m2. #1 Nutrition Diagnosis Inadequate oral intake Etiology Pt in mechanical ventilation. As Evidenced by Signs and Symptoms Pt currently oin NPO. Is patient on ventilator? Yes Is Patient Ambulatory and/or Out of Bed No REE-([facility]-confined to bed) 1778.796 Kcal/Kg value to use for calculation 36 Approximate Energy Requirements Using 2243 kcal/Kg Calculation Used for Recommendations Kcal/kg Additional Notes Protein: 1.2-1.5 g/Kg ABW; 74- 93 g/day. Fluids: 1 ml/Kcal, or as per MD. Nutrition Intervention Nutrition Support: Start TF-Vital AF 1.2 Anton @ 60 ml/hr. Flush: 180 ml water Q 4 hr, or asper MD. Kcal 1,715 Protein (gm) 107 Carbohydrates (gm) 158 Fat (gm) 77 Fluid (mL) 1,159 Fiber (gm) 7 % RDI: 76% Kcal; 115% AA. Goal #1 Provide at least 75% of energy /protein needs through Enteral Feeding during LOS. Follow-Up By: 09/21/21 Additional Comments Start monitoring TF tolerance and BM. <PRO STACK - Last Filed: 09/22/21 13:27> History Interval history: I saw and evaluated the patient. Discussed with the nurse practitioner and agree with their findings and plan as documented in this note. Hospitalist Physical - Constitutional Vitals: Temp Pulse Resp BP Pulse Ox 98.6 F 94 H 26 H 155/74 96 09/22/21 08:00 09/22/21 10:35 09/22/21 08:00 09/22/21 10:35 09/22/21 08:58 HEART Score - HEART Score Troponin: Troponin T < 0.010 ng/mL (0.00-0.029) 09/16/21 17:14 Results - Labs CBC & Chem 7: 09/21/21 04:00 09/22/21 00:49 Labs: Laboratory Last Values WBC 10.7 K/mm3 (4.5-11.0) 09/21/21 04:00 RBC 4.09 M/mm3 (3.65-5.03) 09/21/21 04:00 Hgb 13.6 gm/dl (11.8-15.2) 09/21/21 04:00 Hct 39.2 % (35.5-45.6) 09/21/21 04:00 MCV 96 fl (84-94) H 09/21/21 04:00 MCH 33 pg (28-32) H 09/21/21 04:00 MCHC 35 % (32-34) H 09/21/21 04:00 RDW 13.2 % (13.2-15.2) 09/21/21 04:00 Plt Count 140 K/mm3 (140-440) 09/21/21 04:00 Lymph % (Auto) 13.1 % (13.4-35.0) L 09/17/21 05:16 Anderson % (Auto) 11.8 % (0.0-7.3) H 09/17/21 05:16 Eos % (Auto) 0.1 % (0.0-4.3) 09/17/21 05:16 Baso % (Auto) 0.1 % (0.0-1.8) 09/17/21 05:16 Lymph # (Auto) 0.7 K/mm3 (1.2-5.4) L 09/17/21 05:16 Anderson # (Auto) 0.6 K/mm3 (0.0-0.8) 09/17/21 05:16 Eos # (Auto) 0.0 K/mm3 (0.0-0.4) 09/17/21 05:16 Baso # (Auto) 0.0 K/mm3 (0.0-0.1) 09/17/21 05:16 Seg Neutrophils % 74.9 % (40.0-70.0) H 09/17/21 05:16 Seg Neutrophils # 3.8 K/mm3 (1.8-7.7) 09/17/21 05:16 PT 16.1 Sec. (12.2-14.9) H 09/16/21 19:53 INR 1.16 (0.87-1.13) H 09/16/21 19:53 APTT 25.8 Sec. (24.2-36.6) 09/16/21 19:53 ABG pH 7.432 pH Units (7.350-7.450) 09/20/21 05:18 ABG pCO2 43.4 mm Hg 09/20/21 05:18 ABG pO2 88.4 mm Hg (80.0-90.0) 09/20/21 05:18 ABG HCO3 28.3 mmol/L (20.0-26.0) H 09/20/21 05:18 ABG O2 Saturation 97.2 % (95.0-99.0) 09/20/21 05:18 ABG O2 Content 13.5 (0.0-44) 09/20/21 05:18 ABG Base Excess 3.6 mmol/L (-2.0-3.0) H 09/20/21 05:18 ABG Hemoglobin 10.0 gm/dl (14.0-18.0) L 09/20/21 05:18 ABG Carboxyhemoglobin 1.7 % (0.0-5.0) 09/20/21 05:18 ABG Methemoglobin 0.5 % (0.0-1.5) 09/20/21 05:18 Oxyhemoglobin 95.1 % (95.0-99.0) 09/20/21 05:18 FiO2 30 % 09/20/21 05:18 Sodium 138 mmol/L (137-145) 09/22/21 00:49 Potassium 4.1 mmol/L (3.6-5.0) 09/22/21 00:49 Chloride 99.8 mmol/L (98-107) 09/22/21 00:49 Carbon Dioxide 24 mmol/L (22-30) 09/22/21 00:49 Anion Gap 18 mmol/L 09/22/21 00:49 BUN 9 mg/dL (9-20) 09/22/21 00:49 Creatinine 0.6 mg/dL (0.8-1.3) L 09/22/21 00:49 Estimated GFR > 60 ml/min 09/22/21 00:49 BUN/Creatinine Ratio 15 % 09/22/21 00:49 Glucose 112 mg/dL (75-100) H 09/22/21 00:49 POC Glucose 112 mg/dL (70-105) H 09/21/21 21:21 Lactic Acid 0.60 mmol/L (0.7-2.0) L 09/18/21 Unknown Calcium 8.7 mg/dL (8.4-10.2) 09/22/21 00:49 Phosphorus 3.30 mg/dL (2.5-4.5) D 09/19/21 21:33 Magnesium 1.70 mg/dL (1.7-2.3) 09/20/21 04:00 Total Bilirubin 0.80 mg/dL (0.1-1.2) 09/19/21 21:33 Direct Bilirubin 0.3 mg/dL (0-0.2) H 09/19/21 21:33 Indirect Bilirubin 0.5 mg/dL 09/19/21 21:33 AST 11 units/L (5-40) 09/19/21 21:33 ALT 10 units/L (7-56) 09/19/21 21:33 Alkaline Phosphatase 68 units/L (35-129) 09/19/21 21:33 Total Creatine Kinase 95 units/L (55-170) 09/17/21 09:18 Troponin T < 0.010 ng/mL (0.00-0.029) 09/16/21 17:14 NT-Pro-B Natriuret Pep 342.9 pg/mL (0-900) 09/16/21 17:14 Total Protein 5.9 g/dL (6.3-8.2) L 09/19/21 21:33 Albumin 3.0 g/dL (3.9-5) L 09/19/21 21:33 Albumin/Globulin Ratio 1.0 % 09/19/21 21:33 Urine Color (Yellow) 09/16/21 17:10 Urine Turbidity Cloudy (Clear) 09/16/21 17:10 Urine pH 5.0 (5.0-7.0) 09/16/21 17:10 Ur Specific [place] 1.023 (1.003-1.030) 09/16/21 17:10 Urine Protein 100 mg/dl mg/dL (Negative) 09/16/21 17:10 Urine Glucose (UA) Neg mg/dL (Negative) 09/16/21 17:10 Urine Ketones 80 mg/dL (Negative) 09/16/21 17:10 Urine Blood Sm (Negative) 09/16/21 17:10 Urine Nitrite Neg (Negative) 09/16/21 17:10 Urine Bilirubin Neg (Negative) 09/16/21 17:10 Urine Urobilinogen < 2.0 mg/dL (<2.0) 09/16/21 17:10 Ur Leukocyte Esterase Mod (Negative) 09/16/21 17:10 Urine WBC (Auto) 59.0 /HPF (0.0-6.0) H 09/16/21 17:10 Urine RBC (Auto) 8.0 /HPF (0.0-6.0) 09/16/21 17:10 U Epithel Cells (Auto) 1.0 /HPF (0-13.0) 09/16/21 17:10 Urine Bacteria (Auto) 2+ /HPF (Negative) 09/16/21 17:10 Hyaline Casts 152 /LPF 09/16/21 17:10 Urine Mucus 3+ /HPF 09/16/21 17:10 Urine Yeast (Budding) Not Reportable 09/16/21 17:10 Urine Opiates Screen Presumptive negative 09/16/21 17:13 Urine Methadone Screen Presumptive negative 09/16/21 17:13 Ur Barbiturates Screen Presumptive negative 09/16/21 17:13 Ur Phencyclidine Scrn Presumptive negative 09/16/21 17:13 Ur Amphetamines Screen Presumptive positive 09/16/21 17:13 U Benzodiazepines Scrn Presumptive negative 09/16/21 17:13 Urine Cocaine Screen Presumptive negative 09/16/21 17:13 U Marijuana (THC) Screen Presumptive negative 09/16/21 17:13 Drugs of Abuse Note Disclamer 09/16/21 17:13 Plasma/Serum Alcohol < 0.01 % (0-0.07) 09/16/21 18:17 Blood Type A POSITIVE 09/16/21 21:00 Antibody Screen Negative 09/16/21 21:00 Microbiology: Microbiology 09/16/21 17:14 Peripheral/Venous Blood Culture - Final NO GROWTH AFTER 5 DAYS Bahena/IV: Voiding Method Condom Catheter Active Medications - Current Medications Current Medications: Generic Name Dose Route Start Last Admin Trade Name Freq PRN Reason Stop Dose Admin Acetaminophen 650 mg 09/16/21 23:25 09/21/21 20:24 Acetaminophen 325 Mg Tab PO 650 mg Q4H PRN Administration Pain MILD(1-3)/Fever >100.5/CAAL Albuterol 2.5 mg 09/16/21 23:25 Albuterol 2.5 Mg/3 Ml Nebu IH Q3HRT PRN Shortness Of Breath Aspirin 81 mg 09/22/21 10:00 09/22/21 10:13 Aspirin 81 Mg Tab Chew PO 81 mg QDAY DG Administration Carvedilol 12.5 mg 09/22/21 11:00 09/22/21 10:17 Carvedilol 12.5 Mg Tab PO 12.5 mg BID DG Administration Dextrose 50 ml 09/20/21 13:14 Dextrose 50% In Water (25gm) 50 Ml Syringe IV Q30MIN PRN Hypoglycemia Protocol Famotidine 20 mg 09/22/21 10:00 09/22/21 10:10 Famotidine 20 Mg Tab PO 20 mg BID DG Administration Folic Acid 1 mg 09/22/21 10:00 09/22/21 10:15 Folic Acid 1 Mg Tab PO 1 mg QDAY DG Administration Hydralazine HCl 10 mg 09/16/21 23:42 09/20/21 17:37 Hydralazine 20 Mg/1 Ml Inj IV 10 mg Q6H PRN Administration Blood Pressure Levofloxacin/Dextrose 750 mg in 150 mls @ 100 mls/hr 09/18/21 15:00 09/21/21 15:55 Levaquin 750mg/150ml IV 09/22/21 16:29 100 mls/hr Q24H DG Administration Protocol Dexmedetomidine HCl 400 mcg/ 104 mls @ 3.24 mls/hr 09/19/21 23:45 09/21/21 09:45 Sodium Chloride IV 0 mcg/kg/hr TITRATE DG 0 mls/hr Titration Protocol 0.2 MCG/KG/HR Levetiracetam 1,500 mg 09/22/21 10:00 09/22/21 10:13 Levetiracetam 500 Mg/5 Ml Oral Liqd PO 1,500 mg BID DG Administration Lorazepam 2 mg 09/19/21 20:28 09/21/21 22:40 Lorazepam 2 Mg/Ml Vial IV 2 mg Q1H PRN Administration CIWA-Ar 8-15 Lorazepam 4 mg 09/19/21 20:28 09/21/21 14:33 Lorazepam 2 Mg/Ml Vial IV 4 mg Q1H PRN Administration CIWA-Ar 16-25 Lorazepam 4 mg 09/19/21 20:28 09/19/21 20:56 Lorazepam 2 Mg/Ml Vial IV 4 mg Q15MIN PRN Administration CIWA-Ar >25 Losartan Potassium 25 mg 09/22/21 10:00 09/22/21 10:09 Losartan 25 Mg Tab PO 25 mg QDAY DG Administration Ondansetron HCl 4 mg 09/16/21 23:25 Ondansetron 4 Mg/2 Ml Inj IV Q8H PRN Nausea And Vomiting Phenytoin 100 mg 09/22/21 14:00 Phenytoin 100 Mg/4 Ml Oral.Liqd PO Q8HR DG Quetiapine Fumarate 50 mg 09/21/21 10:00 09/22/21 10:08 Quetiapine 25 Mg Tab PO 50 mg BID DG Administration Senna/Docusate Sodium 1 tab 09/22/21 22:00 Sennosides/Docusate Sodium 8.6/50 Mg Tab PO QHS DG Sodium Chloride 10 ml 09/17/21 10:00 09/22/21 10:10 Sodium Chloride 0.9% 10 Ml Flush Syringe IV 10 ml BID DG Administration Sodium Chloride 10 ml 09/16/21 23:25 Sodium Chloride 0.9% 10 Ml Flush Syringe IV PRN PRN LINE FLUSH Thiamine HCl 100 mg 09/22/21 10:00 09/22/21 10:14 Thiamine 100 Mg Tab PO 100 mg QDAY DG Administration Nutrition/Malnutrition Assess - Dietary Evaluation Nutrition/Malnutrition Findings: Nutrition Notes Start: 09/17/21 11:59 Freq: Status: Active Protocol: Document 09/21/21 14:37 AKNALINI (Rec: 09/21/21 14:47 [facility] [id number]) Nutrition Notes Initial or Follow up Reassessment Other Pertinent Diagnosis Seizure D/O, Hyperthermia, EtOH dependence, legally blind Current Diet TF - Vital AF 1.2 at 60ml/hr Labs/Tests Na 132 Pertinent Medications Dilantin q8h Height 6 ft 2 in Weight 62.3 kg [place] Body Weight (kg) 86.36 BMI 17.6 Weight Status Underweight Subjective/Other Information Pt extubated yesterday; passed bedside swallow evaluation. [employer] evaluation ordered this am . No TF infusing at time of visit today. Burn Absent Trauma Absent #2 Nutrition Diagnosis Underweight Diagnosis Progress(for reassessment Continues documentation) #1 Nutrition Diagnosis Inadequate oral intake Diagnosis Progress(for reassessment Continues documentation) Is patient on ventilator? No Is Patient Ambulatory and/or Out of Bed No REE-([facility]-confined to bed) 1778.796 Kcal/Kg value to use for calculation 35 Approximate Energy Requirements Using 2181 kcal/Kg Calculation Used for Recommendations Kcal/kg Additional Notes Pro needs 1.2-2g/k-125g/ day Fluid needs 1ml/kcal Nutrition Intervention Nutrition Support: Continue Vital AF 1.2 if unable to advance diet. Adjust rate for dilantin administration if dilantin administered via PEG tube. Goal #1 Resume EN support if unable to advance diet Follow-Up By: 09/23/21 Additional Comments F/U: [employer] evaluation, diet advancement vs TF restart ( adjust rate for dilantin administration)
[2021-09-19] MEDS: hydrALAZINE 20 MG/1 ML INJ IV PRN (20:06)
[2021-09-19] MEDS ORDERED: LORazepam 2 MG/ML VIAL IV PRN (20:28)
[2021-09-19] MEDS: LORazepam 2 MG/ML VIAL IV PRN ×4 (20:33→23:59)
[2021-09-19] MEDS: SENNOSIDES/DOCUSATE SODIUM 8.6/50 MG TAB FEEDTUBE SCH (21:23)
[2021-09-19 22:21] LABS: Alanine Aminotransferase 10 units/L (7-56); Bilirubin,Direct 0.3 mg/dL (0-0.2); Blood Urea Nitrogen 6 mg/dL (9-20); Calcium 8.5 mg/dL (8.4-10.2); Hemolysis Index 12
[2021-09-19 22:38] LABS: BUN/Creatinine Ratio 12
--- NOTE | 2021-09-20 02:33 | XRay Report ---
XR abdomen 1V ap INDICATION / CLINICAL INFORMATION: OGT confirmation. COMPARISON: None available. TECHNIQUE: One view supine AP abdomen. FINDINGS: TUBES / LINES: Esophagogastric tube terminates beneath the left hemidiaphragm within the cardia of th e stomach. BOWEL GAS PATTERN: No significant abnormality. FREE AIR / EXTRALUMINAL GAS: None seen. ADDITIONAL FINDINGS: No significant additional findings. IMPRESSION: 1. Esophagogastric tube in expected position. Signer Name: Lev Bowers II, MD Signed: 09/20/2021 2:28 AM Workstation Name: [id number]
[2021-09-20 04:45] LABS: Hematocrit 40.4 % (35.5-45.6); Hemoglobin 13.7 gm/dl (11.8-15.2); Mean Corpuscular HGB Conc 34 % (32-34); Mean Corpuscular Volume 95 fl (84-94); Platelet Count 105 K/mm3 (140-440); Red Blood Count 4.24 M/mm3 (3.65-5.03); Red Cell Distribution Width 13.2 % (13.2-15.2)
[2021-09-20 05:36] LABS: Blood Urea Nitrogen 8 mg/dL (9-20); Calcium 8.8 mg/dL (8.4-10.2); Hemolysis Index 19
[2021-09-20] MEDS: PHENYTOIN 100 MG/4 ML ORAL.LIQD FEEDTUBE SCH ×3 (05:50→21:59)
[2021-09-20 05:53] LABS: ABG Base Excess 3.6 mmol/L (-2.0-3.0); ABG HCO3 28.3 mmol/L (20.0-26.0); ABG Methemoglobin 0.5 % (0.0-1.5); ABG Oxygen Saturation 97.2 % (95.0-99.0); ABG PCO2 43.4 mm Hg; ABG PH 7.432 pH Units (7.350-7.450); ABG PO2 88.4 mm Hg (80.0-90.0)
[2021-09-20 05:55] LABS: BUN/Creatinine Ratio 16
[2021-09-20] MEDS: MULTIVITAMIN / MINERAL ORAL LIQUID 15 ML FEEDTUBE SCH (09:15)
[2021-09-20] MEDS: levETIRAcetam 500 MG/5 ML ORAL LIQD FEEDTUBE SCH ×2 (09:15→21:59)
[2021-09-20] MEDS: THIAMINE 100 MG TAB FEEDTUBE SCH (09:16)
[2021-09-20] MEDS: ASPIRIN 81 MG TAB CHEW FEEDTUBE SCH (09:16)
[2021-09-20] MEDS: FOLIC ACID 1 MG TAB FEEDTUBE SCH (09:16)
[2021-09-20] MEDS: carvediloL 6.25 MG TAB FEEDTUBE SCH ×2 (09:16→21:59)
[2021-09-20] MEDS: LOSARTAN 25 MG TAB FEEDTUBE SCH (09:16)
[2021-09-20] MEDS: FAMOTIDINE 20 MG TAB FEEDTUBE SCH ×2 (09:16→21:59)
--- NOTE | 2021-09-20 11:26 | Progress Note ---
Assessment and Plan Assessment: AMS Seizures Acute Respiratory Failure Malignant Hyperthermia +Amphetamine UDS Paroxysmal SVT CMP (EF 30-35% on echo 12/2020, 35-40% on echo this admission) Asthma H/o EtOH Abuse H/o Pancreatitis Echo 12/15/2020: EF 30 to 35%. Left ventricle is mildly dilated. Severe hypokinesis is noted on the whole apex with a relative hyperdynamic base for suggestive of stress cardiomyopathy. Left atrium is mildly dilated. Right ventricular systolic function is normal. Ascending aorta mildly dilated. Echo 09/16/2021: EF 35 to 40%. Right ventricle systolic function is normal. Right ventricle is mildly dilated. Aortic valve is normal in structure no aortic regurgitation. Trace mitral regurgitation. Trace tricuspid regurgitation. Plan: CIWA protocol initiated per Primary. Previous tachyarrhythmia secondary to amphetamine use +/- hyperthermia +/- electrolyte abnormalities. Maintaining SR on tele with occasional PACs. Continue Coreg 6.25mg BID and Losartan 25mg daily. PRN correction of electrolytes per Primary. Plan for ischemic eval as an outpatient. Cardiac status is otherwise stable. Will see on an as-needed basis. Please call if any questions regarding cardiac mgmt ([phone]). Pt seen in conjunction with Dr. Vu, who agrees with the assessment and plan of care. - Patient Problems (1) SVT (supraventricular tachycardia) Current Visit: Yes Status: Acute (2) Seizures Current Visit: Yes Status: Acute (3) Cardiomyopathy Current Visit: Yes Status: Chronic Subjective Date of service: 09/20/21 Principal diagnosis: pSVT Interval history: Remains intubated. CIWA protocol. Tele reviewed - SR 70s with PACs, no events overnight or this AM. Objective Vital Signs Temp Pulse Pulse Resp BP Pulse Ox 09/20/21 11:00 69 16 102/60 98 09/20/21 10:31 73 15 116/66 98 09/20/21 10:00 78 20 145/74 100 09/20/21 09:30 77 16 140/91 100 09/20/21 09:16 70 131/80 09/20/21 09:00 71 18 131/80 100 09/20/21 08:30 73 18 121/70 100 09/20/21 08:00 76 106 H 18 125/75 100 09/20/21 07:54 75 135/81 98 09/20/21 07:48 98.2 F 09/20/21 07:30 79 20 135/81 100 09/20/21 07:00 83 18 140/85 100 09/20/21 06:30 84 19 128/89 97 09/20/21 06:01 88 19 150/84 99 09/20/21 05:30 80 19 115/68 100 09/20/21 05:00 87 18 115/69 100 09/20/21 04:31 91 H 23 143/86 100 09/20/21 04:01 97 H 26 H 150/85 94 09/20/21 04:00 98.3 F 90 21 100 09/20/21 03:50 89 144/86 100 09/20/21 03:30 89 19 144/86 99 09/20/21 03:00 85 18 119/67 99 09/20/21 02:31 89 22 75/41 97 09/20/21 02:01 89 19 108/61 97 09/20/21 01:30 90 18 133/78 98 09/20/21 01:00 88 18 106/64 97 09/20/21 00:31 102 H 22 137/76 97 09/20/21 00:00 106 H 106 H 25 H 165/100 97 09/19/21 23:32 106 H 181/110 98 09/19/21 23:30 111 H 30 H 181/110 96 09/19/21 23:26 98.6 F 09/19/21 23:07 105 H 24 186/103 100 09/19/21 23:01 103 H 29 H 186/103 92 09/19/21 22:54 105 H 34 H 152/92 99 09/19/21 22:45 96 H 32 H 152/92 99 09/19/21 22:31 98 H 29 H 152/92 99 09/19/21 22:15 99 H 23 152/92 98 09/19/21 22:01 98 H 26 H 152/92 98 09/19/21 21:54 106 H 09/19/21 21:45 101 H 25 H 161/87 98 09/19/21 21:31 105 H 24 161/87 97 09/19/21 21:23 101 H 161/87 09/19/21 21:15 100 H 30 H 190/91 98 09/19/21 21:00 101 H 28 H 190/91 95 09/19/21 20:45 96 H 25 H 179/95 99 09/19/21 20:39 96 H 179/95 98 09/19/21 20:31 97 H 23 179/95 100 09/19/21 20:15 93 H 20 179/95 100 09/19/21 20:06 91 H 179/95 09/19/21 20:00 88 21 179/95 100 09/19/21 19:45 85 18 156/91 100 09/19/21 19:32 86 18 100 09/19/21 19:31 87 19 156/91 100 09/19/21 19:28 98.6 F 09/19/21 19:01 91 H 25 H 156/91 09/19/21 18:00 81 19 149/83 98 09/19/21 17:01 83 20 157/102 99 09/19/21 16:01 78 18 140/86 100 09/19/21 16:00 99 F 86 20 100 09/19/21 15:53 77 154/84 100 09/19/21 15:00 75 19 154/84 100 09/19/21 14:00 79 16 160/88 100 09/19/21 13:00 80 17 157/94 100 09/19/21 12:00 99 F 72 86 20 140/80 100 09/19/21 11:39 75 141/86 100 - Physical Examination General: Other (Intubated) HEENT: Positive: Normocephaly Neck: Negative: JVD/HJR Cardiac: Positive: Reg Rate and Rhythm Lungs: Positive: Ventilated Respirations Neuro: Positive: Other Abdomen: Positive: Soft Skin: Negative: Rash Extremities: Present: upper extr. pulses. Absent: edema - Labs and Meds Cardiac Enzymes 09/19/21 Range/Units 21:33 AST 11 (5-40) units/L CBC 09/20/21 Range/Units 04:00 WBC 7.8 (4.5-11.0) K/mm3 RBC 4.24 (3.65-5.03) M/mm3 Hgb 13.7 (11.8-15.2) gm/dl Hct 40.4 (35.5-45.6) % Plt Count 105 L (140-440) K/mm3 Comprehensive Metabolic Panel 07/16/22 07/17/22 Range/Units 21:33 04:00 Sodium 134 L 134 L (137-145) mmol/L Potassium 3.8 3.8 (3.6-5.0) mmol/L Chloride 98.2 97.0 L (98-107) mmol/L Carbon Dioxide 26 27 (22-30) mmol/L BUN 6 L 8 L (9-20) mg/dL Creatinine 0.5 L 0.5 L (0.8-1.3) mg/dL Glucose 158 H 113 H (75-100) mg/dL Calcium 8.5 8.8 (8.4-10.2) mg/dL Direct Bilirubin 0.3 H (0-0.2) mg/dL Indirect Bilirubin 0.5 mg/dL AST 11 (5-40) units/L ALT 10 (7-56) units/L Alkaline Phosphatase 68 (35-129) units/L Total Protein 5.9 L (6.3-8.2) g/dL Albumin 3.0 L (3.9-5) g/dL - Imaging and Cardiology EKG: report reviewed, image reviewed Echo: report reviewed - Telemetry EKG Rhythm: Sinus Rhythm - EKG Sinus rhythms and dysrhythmias: sinus rhythm - Allied health notes Allied health notes reviewed: nursing
--- NOTE | 2021-09-20 11:33 | Progress Note ---
<ADDISON BARROW - Last Filed: 09/20/21 11:28> Assessment and Plan Assessment and plan: This is a 66-year-old male with asthma, EtOH abuse, pancreatitis, legally blind, seizure disorder, HFrEF admitted with seizures, malignant hyperthermia, SVT, hypokalemia and hypomagnesemia Neuro: Amphetamine use, malignant hyperthermia, seizures, h/o EtOH use, legally blind, seizure disorder -Presented with temperature of 107.3 F -Neurology consulted, appreciate recommendations -CIWA -Precedex gtt -Reorientation as needed -Maintain sleep-wake cycle -Seizure precautions -As needed analgesia -CT head with no acute intracranial abnormality -MRI brain pending -Neurology recommends to continue Keppra 500 mg twice daily, Dilantin 100 mg 3 times daily -UDS positive for amphetamines -Neurology recommends follow-up with neurology within 2 weeks with seizure restrictions and placed into care of a neurologist -Bilateral wrist restraints in place for safety -EEG completed, pending read -Thiamine, folic acid Cardiac: SVT (resolved), h/o cardiomyopathy, HFrEF -Cardiology consulted, appreciate recommendations -S/p adenosine x3, Cardizem x2 and cardioversion, amiodarone x1 -Resume home losartan, aspirin, BB -Blood pressure monitoring per protocol -On chart review patient had an echocardiogram on 12/2020 which showed a EF of 30 to 35%, severe hypokinesis of the apex and values with hyperdynamic base suggesting stress cardiomyopathy -Echo 09/16/2021 shows EF 35 to 40%. Respiratory: Acute hypoxic respiratory failure -CCM consulted, appreciate recommendations -Intubated on 09/16 with 7.50 ETT at 24 the lips for airway protection in the ED -A.m. vent settings: Assist-control rate 22, tidal volume 450, PEEP 6, FiO2 30% -PSV as tolerated -See RT notes for titration -A.m. ABG and CXR noted -VAP bundle -SPO2 monitoring GI: Moderate protein calorie malnutrition, h/o pancreatitis -24 hours 3079 ml -S/p Protonix and octreotide drip -PPI -NTR consulted for tube feedings -BR: Senna/Colace : NAD -Monitor intake and output -Renally dose medications -Avoid nephrotoxic medications -Trend BMP ID: Gram-positive cocci in clusters (1/4 bottle -likely contaminate but given 1x dose of vanco), Ecoli in tracheal aspirate -UA with moderate LE -S/p vancomycin x1 -abx: levofloxacin -f/u blood culture -Monitor WBC and temperature curve Endo: NAD -Avoid hypoglycemia -Accu-Cheks q. 6 Heme: NAD -Positive guaiac but no signs of overt bleeding -Trend CBC -Transfuse hemoglobin less than 7 -SCDs to BLE while in bed The high probability of a clinically significant, sudden or life threatening deterioration of the [multi] system(s) required my full and direct attention, intervention and personal management. The aggregate critical care time was [60] minutes. This time is in addition to time spent performing reported procedures but includes the following: [x] Data Review and interpretation [x] Patient assessment and monitoring of vital signs [x] Documentation [x] Medication orders and management Disposition Plan: icu Total Time Spent with Patient (Minutes): 60 History Interval history: This is a 66-year-old male with asthma, EtOH abuse, pancreatitis, legally blind, seizure disorder, gout, heart failure with reduced EF and COVID-19 infection 03/2021) who presented to emergency department via EMS after being found with altered mental status and being "very warm to touch" after being found with a fall and winter jacket on. On arrival to the emergency department patient was on a nonrebreather and appeared to be tremulous and confused and not responding. Per EMS in route patient had SVT which was treated with 6 and 12 mg of adenosine with no effect. Upon arrival to the emergency department patient had ECG which revealed narrow regular supraventricular tachycardia with heart rate in the 1 70-1 80 and given the patient was confused and altered patient was given additional 12 mg of adenosine with no change and then synchronized cardioverted at 100 J which did not convert as well. After this patient was given Cardizem 20 mg x 1 and 25 mg x 1 which converted patient to sinus rhythm/ST. On arrival to the emergency department patient was also hypothermic at 107.3 F per documentation patient also had recurrent seizures in the ED and was intubated for airway protection and started on a Ativan drip. Patient also had a positive occult and was started on octreotide and Protonix drip. Patient's UDS was also positive for amphetamines and per teleneurology patient was recommended to be switched to midazolam if seizure activity persistent with lorazepam. Patient was admitted to the hospitalist service with acute hypoxic respiratory failure, malignant hyperthermia, seizures, hypomagnesemia, lactic acidosis and SVT with consults to [facility], cardiology and neurology. Hospital course to date: 09/17: Octreotide/Protonix drip discontinued, potassium replaced with IV KCl and repeat potassium 3.4 repleted with p.o. potassium. Antibiotics discontinued however this evening patient blood culture resulted with gram-positive cocci and he was given one-time dose of vancomycin. IV fluids discontinued, tube feeding started. MRI brain pending however unable to complete checklist due to altered mental status and no family in chart. Rate decreased on ventilator to 18 and repeat echocardiogram pending. 09/18: CPAP trials starting today. Resume home coreg. No acute events overnight. 09/19: Patient on CPAP trial today however was switched back to assist control. Intermittently following commands. No acute events reported overnight. Hypokalemia, hypophosphatemia and hypomagnesemia repleted. 09/20: Placed on CPAP, overnight he was started on precedex gtt which is c urrently on 0.1. Hospitalist Physical - Constitutional Vitals: Temp Pulse Resp BP Pulse Ox 98.2 F 69 16 102/60 98 09/20/21 07:48 09/20/21 11:00 09/20/21 11:00 09/20/21 11:00 09/20/21 11:00 General appearance: Present: no acute distress, other (Intubated) - EENT Eyes: Present: PERRL, EOM intact ENT: poor dentition - Neck Neck: Present: normal ROM - Respiratory Respiratory effort: normal Respiratory: bilateral: CTA - Cardiovascular Rhythm: regular Heart Sounds: Present: S1 & S2. Absent: systolic murmur, diastolic murmur - Extremities Extremities: no ischemia, pulses intact, pulses symmetrical, No edema, normal temperature, normal color Peripheral Pulses: within normal limits - Abdominal General gastrointestinal: soft, non-tender, non-distended, normal bowel sounds - Integumentary Integumentary: Present: warm, dry - Psychiatric Psychiatric: cooperative - Neurologic Neurologic: CNII-XII intact, no focal deficits, moves all extremities - Allied Health Allied health notes reviewed: nursing, RT HEART Score - HEART Score Troponin: Troponin T < 0.010 ng/mL (0.00-0.029) 09/16/21 17:14 Results - Labs CBC & Chem 7: 09/20/21 04:00 09/20/21 04:00 Labs: Laboratory Last Values WBC 7.8 K/mm3 (4.5-11.0) 09/20/21 04:00 RBC 4.24 M/mm3 (3.65-5.03) 09/20/21 04:00 Hgb 13.7 gm/dl (11.8-15.2) 09/20/21 04:00 Hct 40.4 % (35.5-45.6) 09/20/21 04:00 MCV 95 fl (84-94) H 09/20/21 04:00 MCH 32 pg (28-32) 09/20/21 04:00 MCHC 34 % (32-34) 09/20/21 04:00 RDW 13.2 % (13.2-15.2) 09/20/21 04:00 Plt Count 105 K/mm3 (140-440) L 09/20/21 04:00 Lymph % (Auto) 13.1 % (13.4-35.0) L 09/17/21 05:16 [place] % (Auto) 11.8 % (0.0-7.3) H 09/17/21 05:16 Eos % (Auto) 0.1 % (0.0-4.3) 09/17/21 05:16 Baso % (Auto) 0.1 % (0.0-1.8) 09/17/21 05:16 Lymph # (Auto) 0.7 K/mm3 (1.2-5.4) L 09/17/21 05:16 [place] # (Auto) 0.6 K/mm3 (0.0-0.8) 09/17/21 05:16 Eos # (Auto) 0.0 K/mm3 (0.0-0.4) 09/17/21 05:16 Baso # (Auto) 0.0 K/mm3 (0.0-0.1) 09/17/21 05:16 Seg Neutrophils % 74.9 % (40.0-70.0) H 09/17/21 05:16 Seg Neutrophils # 3.8 K/mm3 (1.8-7.7) 09/17/21 05:16 PT 16.1 Sec. (12.2-14.9) H 09/16/21 19:53 INR 1.16 (0.87-1.13) H 09/16/21 19:53 APTT 25.8 Sec. (24.2-36.6) 09/16/21 19:53 ABG pH 7.432 pH Units (7.350-7.450) 09/20/21 05:18 ABG pCO2 43.4 mm Hg 09/20/21 05:18 ABG pO2 88.4 mm Hg (80.0-90.0) 09/20/21 05:18 ABG HCO3 28.3 mmol/L (20.0-26.0) H 09/20/21 05:18 ABG O2 Saturation 97.2 % (95.0-99.0) 09/20/21 05:18 ABG O2 Content 13.5 (0.0-44) 09/20/21 05:18 ABG Base Excess 3.6 mmol/L (-2.0-3.0) H 09/20/21 05:18 ABG Hemoglobin 10.0 gm/dl (14.0-18.0) L 09/20/21 05:18 ABG Carboxyhemoglobin 1.7 % (0.0-5.0) 09/20/21 05:18 ABG Methemoglobin 0.5 % (0.0-1.5) 09/20/21 05:18 Oxyhemoglobin 95.1 % (95.0-99.0) 09/20/21 05:18 FiO2 30 % 09/20/21 05:18 Sodium 134 mmol/L (137-145) L 09/20/21 04:00 Potassium 3.8 mmol/L (3.6-5.0) 09/20/21 04:00 Chloride 97.0 mmol/L (98-107) L 09/20/21 04:00 Carbon Dioxide 27 mmol/L (22-30) 09/20/21 04:00 Anion Gap 14 mmol/L 09/20/21 04:00 BUN 8 mg/dL (9-20) L 09/20/21 04:00 Creatinine 0.5 mg/dL (0.8-1.3) L 09/20/21 04:00 Estimated GFR > 60 ml/min 09/20/21 04:00 BUN/Creatinine Ratio 16 % 09/20/21 04:00 Glucose 113 mg/dL (75-100) H 09/20/21 04:00 POC Glucose 107 mg/dL (70-105) H 09/19/21 00:27 Lactic Acid 0.60 mmol/L (0.7-2.0) L 09/18/21 Unknown Calcium 8.8 mg/dL (8.4-10.2) 09/20/21 04:00 Phosphorus 3.30 mg/dL (2.5-4.5) D 09/19/21 21:33 Magnesium 1.70 mg/dL (1.7-2.3) 09/20/21 04:00 Total Bilirubin 0.80 mg/dL (0.1-1.2) 09/19/21 21:33 Direct Bilirubin 0.3 mg/dL (0-0.2) H 09/19/21 21:33 Indirect Bilirubin 0.5 mg/dL 09/19/21 21:33 AST 11 units/L (5-40) 09/19/21 21:33 ALT 10 units/L (7-56) 09/19/21 21:33 Alkaline Phosphatase 68 units/L (35-129) 09/19/21 21:33 Total Creatine Kinase 95 units/L (55-170) 09/17/21 09:18 Troponin T < 0.010 ng/mL (0.00-0.029) 09/16/21 17:14 NT-Pro-B Natriuret Pep 342.9 pg/mL (0-900) 09/16/21 17:14 Total Protein 5.9 g/dL (6.3-8.2) L 09/19/21 21:33 Albumin 3.0 g/dL (3.9-5) L 09/19/21 21:33 Albumin/Globulin Ratio 1.0 % 09/19/21 21:33 Urine Color (Yellow) 09/16/21 17:10 Urine Turbidity Cloudy (Clear) 09/16/21 17:10 Urine pH 5.0 (5.0-7.0) 09/16/21 17:10 Ur Specific [place] 1.023 (1.003-1.030) 09/16/21 17:10 Urine Protein 100 mg/dl mg/dL (Negative) 09/16/21 17:10 Urine Glucose (UA) Neg mg/dL (Negative) 09/16/21 17:10 Urine Ketones 80 mg/dL (Negative) 09/16/21 17:10 Urine Blood Sm (Negative) 09/16/21 17:10 Urine Nitrite Neg (Negative) 09/16/21 17:10 Urine Bilirubin Neg (Negative) 09/16/21 17:10 Urine Urobilinogen < 2.0 mg/dL (<2.0) 09/16/21 17:10 Ur Leukocyte Esterase Mod (Negative) 09/16/21 17:10 Urine WBC (Auto) 59.0 /HPF (0.0-6.0) H 09/16/21 17:10 Urine RBC (Auto) 8.0 /HPF (0.0-6.0) 09/16/21 17:10 U Epithel Cells (Auto) 1.0 /HPF (0-13.0) 09/16/21 17:10 Urine Bacteria (Auto) 2+ /HPF (Negative) 09/16/21 17:10 Hyaline Casts 152 /LPF 09/16/21 17:10 Urine Mucus 3+ /HPF 09/16/21 17:10 Urine Yeast (Budding) Not Reportable 09/16/21 17:10 Urine Opiates Screen Presumptive negative 09/16/21 17:13 Urine Methadone Screen Presumptive negative 09/16/21 17:13 Ur Barbiturates Screen Presumptive negative 09/16/21 17:13 Ur Phencyclidine Scrn Presumptive negative 09/16/21 17:13 Ur Amphetamines Screen Presumptive positive 09/16/21 17:13 U Benzodiazepines Scrn Presumptive negative 09/16/21 17:13 Urine Cocaine Screen Presumptive negative 09/16/21 17:13 U Marijuana (THC) Screen Presumptive negative 09/16/21 17:13 Drugs of Abuse Note Disclamer 09/16/21 17:13 Plasma/Serum Alcohol < 0.01 % (0-0.07) 09/16/21 18:17 Blood Type A POSITIVE 09/16/21 21:00 Antibody Screen Negative 09/16/21 21:00 Microbiology: Microbiology 09/16/21 17:14 Peripheral/Venous Blood Culture - Preliminary NO GROWTH AFTER 72 HOURS 09/16/21 17:10 Urine,Clean Catch Urine Culture - Final NO GROWTH AFTER 48 HOURS Bahena/IV: Voiding Method Condom Catheter Active Medications - Current Medications Current Medications: Generic Name Dose Route Start Last Admin Trade Name Freq PRN Reason Stop Dose Admin Acetaminophen 650 mg 09/16/21 23:25 Acetaminophen 325 Mg Tab PO Q4H PRN Pain MILD(1-3)/Fever >100.5/CAAL Albuterol 2.5 mg 09/16/21 23:25 Albuterol 2.5 Mg/3 Ml Nebu IH Q3HRT PRN Shortness Of Breath Aspirin 81 mg 09/17/21 10:00 09/20/21 09:16 Aspirin 81 Mg Tab Chew FEEDTUBE 81 mg QDAY DG Administration Carvedilol 6.25 mg 09/18/21 11:00 09/20/21 09:16 Carvedilol 6.25 Mg Tab FEEDTUBE 6.25 mg BID DG Administration Famotidine 20 mg 09/17/21 22:00 09/20/21 09:16 Famotidine 20 Mg Tab FEEDTUBE 20 mg BID DG Administration Folic Acid 1 mg 09/17/21 10:00 09/20/21 09:16 Folic Acid 1 Mg Tab FEEDTUBE 1 mg QDAY DG Administration Hydralazine HCl 10 mg 09/16/21 23:42 09/19/21 20:06 Hydralazine 20 Mg/1 Ml Inj IV 10 mg Q6H PRN Administration Blood Pressure Propofol 1,000 mg in 100 mls @ 1.869 mls/hr 09/17/21 12:00 Diprivan 10 Mg/Ml IV TITR DG Protocol 5 MCG/KG/MIN Levofloxacin/Dextrose 750 mg in 150 mls @ 100 mls/hr 09/18/21 15:00 09/19/21 15:30 Levaquin 750mg/150ml IV 09/23/21 14:59 100 mls/hr Q24H DG Administration Protocol Dexmedetomidine HCl 400 mcg/ 104 mls @ 3.24 mls/hr 09/19/21 23:45 09/20/21 07:00 Sodium Chloride IV 0.1 mcg/kg/hr TITRATE DG 1.62 mls/hr Titration Protocol 0.2 MCG/KG/HR Levetiracetam 1,500 mg 09/18/21 22:00 09/20/21 09:15 Levetiracetam 500 Mg/5 Ml Oral Liqd FEEDTUBE 1,500 mg BID DG Administration Lorazepam 2 mg 09/19/21 20:28 09/19/21 23:59 Lorazepam 2 Mg/Ml Vial IV 2 mg Q1H PRN Administration CIWA-Ar 8-15 Lorazepam 4 mg 09/19/21 20:28 09/19/21 20:33 Lorazepam 2 Mg/Ml Vial IV 4 mg Q1H PRN Administration CIWA-Ar 16-25 Lorazepam 4 mg 09/19/21 20:28 09/19/21 20:56 Lorazepam 2 Mg/Ml Vial IV 4 mg Q15MIN PRN Administration CIWA-Ar >25 Losartan Potassium 25 mg 09/17/21 10:00 09/20/21 09:16 Losartan 25 Mg Tab FEEDTUBE 25 mg QDAY DG Administration Morphine Sulfate 2 mg 09/16/21 23:25 09/19/21 19:05 Morphine 2 Mg/1 Ml Inj IV 2 mg Q4H PRN Administration Pain, Moderate (4-6) Morphine Sulfate 4 mg 09/16/21 23:25 Morphine 4 Mg/1 Ml Inj IV Q4H PRN Pain , Severe (7-10) Ondansetron HCl 4 mg 09/16/21 23:25 Ondansetron 4 Mg/2 Ml Inj IV Q8H PRN Nausea And Vomiting Phenytoin 100 mg 09/17/21 14:00 09/20/21 05:50 Phenytoin 100 Mg/4 Ml Oral.Liqd FEEDTUBE 100 mg Q8HR DG Administration Senna/Docusate Sodium 1 tab 09/17/21 22:00 09/19/21 21:23 Sennosides/Docusate Sodium 8.6/50 Mg Tab FEEDTUBE Not Given QHS DG Sodium Chloride 10 ml 09/17/21 10:00 09/19/21 21:23 Sodium Chloride 0.9% 10 Ml Flush Syringe IV 10 ml BID DG Administration Sodium Chloride 10 ml 09/16/21 23:25 Sodium Chloride 0.9% 10 Ml Flush Syringe IV PRN PRN LINE FLUSH Thiamine HCl 100 mg 09/17/21 10:00 09/20/21 09:16 Thiamine 100 Mg Tab FEEDTUBE 100 mg QDAY DG Administration Nutrition/Malnutrition Assess - Dietary Evaluation Nutrition/Malnutrition Findings: Nutrition Notes Start: 09/17/21 11:59 Freq: Status: Active Protocol: Document 09/17/21 11:59 MACIEJ (Rec: 09/17/21 12:47 MACIEJ [id number]) Nutrition Notes Need for Assessment generated from: MD Order,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 Labs/Tests 09/17: K 2.9, CO2 21, Glu 108, Ca 7.7. Pertinent Medications 09/17: D5ns @ 100 ml/hr, Folic acid, Thiamine, KCl 20mEq, Propofol @ 1.869 ml/hr (49 Kcal), others nutritionally unremarkable. Height 6 ft 2 in Weight 62.3 kg [place] Body Weight (kg) 86.36 BMI 17.6 Intake Prior to Admission Good Weight change and time frame Pt states being unsure if loss body weight [employer]. Weight Status Underweight Subjective/Other Information RD consult for skin risk, risk of malnutrition, and Low BMI assessments, and write/manage TF. Pt currently NPO. I will prescribe TF to provide Pt for energy/protein needs during LOS. Pt is on Mechanical Ventilation, O2 saturation @ 100%, according to Physical Assessment History notes. Pt presents unspecified rash and redness as signs of concern for skin risk at this time, according to Physical Assessment History notes. Pt presents underweight and EtOH dependence/pancreatitis as signs of concern for risk of malnutrition at this time, according to Physical Assessment History and History & Physical notes. Pt is homeless and legally blind, according to History & Physical notes. Pt's Low BMI seems to correspond to a natural body composition, probably not related to a sudden loss of body weight, but exacerbated by chronic malnutrition induced by EtOH dependence, since those signs of concern were mentioned in the Physical Assessment History and the History & Physical notes. Percent of energy/protein needs met: Pt currently NPO. Prescribed TF-Vital AF 1.2 Anton @ 60 ml/hr provides for energy/protein needs (1,715 Kcal/107 g) during LOS, 76% Kcal; 115% AA. Burn Absent Trauma Absent GI Symptoms None Food Allergy No Skin Integrity/Comment Unspecified rash and redness. 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 As Evidenced by Signs and Symptoms BMI 17.6 Kg/m2. #1 Nutrition Diagnosis Inadequate oral intake Etiology Pt in mechanical ventilation. As Evidenced by Signs and Symptoms Pt currently oin NPO. Is patient on ventilator? Yes Is Patient Ambulatory and/or Out of Bed No REE-([facility]-confined to bed) 1778.796 Kcal/Kg value to use for calculation 36 Approximate Energy Requirements Using 2243 kcal/Kg Calculation Used for Recommendations Kcal/kg Additional Notes Protein: 1.2-1.5 g/Kg ABW; 74- 93 g/day. Fluids: 1 ml/Kcal, or as per MD. Nutrition Intervention Nutrition Support: Start TF-Vital AF 1.2 Anton @ 60 ml/hr. Flush: 180 ml water Q 4 hr, or asper MD. Kcal 1,715 Protein (gm) 107 Carbohydrates (gm) 158 Fat (gm) 77 Fluid (mL) 1,159 Fiber (gm) 7 % RDI: 76% Kcal; 115% AA. Goal #1 Provide at least 75% of energy /protein needs through Enteral Feeding during LOS. Follow-Up By: 09/21/21 Additional Comments Start monitoring TF tolerance and BM. <PRO STACK - Last Filed: 09/22/21 13:16> History Interval history: I saw and evaluated the patient. Discussed with the nurse practitioner and agree with their findings and plan as documented in this note. Hospitalist Physical - Constitutional Vitals: Temp Pulse Resp BP Pulse Ox 98.6 F 94 H 26 H 155/74 96 09/22/21 08:00 09/22/21 10:35 09/22/21 08:00 09/22/21 10:35 09/22/21 08:58 HEART Score - HEART Score Troponin: Troponin T < 0.010 ng/mL (0.00-0.029) 09/16/21 17:14 Results - Labs CBC & Chem 7: 09/21/21 04:00 09/22/21 00:49 Labs: Laboratory Last Values WBC 10.7 K/mm3 (4.5-11.0) 09/21/21 04:00 RBC 4.09 M/mm3 (3.65-5.03) 09/21/21 04:00 Hgb 13.6 gm/dl (11.8-15.2) 09/21/21 04:00 Hct 39.2 % (35.5-45.6) 09/21/21 04:00 MCV 96 fl (84-94) H 09/21/21 04:00 MCH 33 pg (28-32) H 09/21/21 04:00 MCHC 35 % (32-34) H 09/21/21 04:00 RDW 13.2 % (13.2-15.2) 09/21/21 04:00 Plt Count 140 K/mm3 (140-440) 09/21/21 04:00 Lymph % (Auto) 13.1 % (13.4-35.0) L 09/17/21 05:16 [place] % (Auto) 11.8 % (0.0-7.3) H 09/17/21 05:16 Eos % (Auto) 0.1 % (0.0-4.3) 09/17/21 05:16 Baso % (Auto) 0.1 % (0.0-1.8) 09/17/21 05:16 Lymph # (Auto) 0.7 K/mm3 (1.2-5.4) L 09/17/21 05:16 [place] # (Auto) 0.6 K/mm3 (0.0-0.8) 09/17/21 05:16 Eos # (Auto) 0.0 K/mm3 (0.0-0.4) 09/17/21 05:16 Baso # (Auto) 0.0 K/mm3 (0.0-0.1) 09/17/21 05:16 Seg Neutrophils % 74.9 % (40.0-70.0) H 09/17/21 05:16 Seg Neutrophils # 3.8 K/mm3 (1.8-7.7) 09/17/21 05:16 PT 16.1 Sec. (12.2-14.9) H 09/16/21 19:53 INR 1.16 (0.87-1.13) H 09/16/21 19:53 APTT 25.8 Sec. (24.2-36.6) 09/16/21 19:53 ABG pH 7.432 pH Units (7.350-7.450) 09/20/21 05:18 ABG pCO2 43.4 mm Hg 09/20/21 05:18 ABG pO2 88.4 mm Hg (80.0-90.0) 09/20/21 05:18 ABG HCO3 28.3 mmol/L (20.0-26.0) H 09/20/21 05:18 ABG O2 Saturation 97.2 % (95.0-99.0) 09/20/21 05:18 ABG O2 Content 13.5 (0.0-44) 09/20/21 05:18 ABG Base Excess 3.6 mmol/L (-2.0-3.0) H 09/20/21 05:18 ABG Hemoglobin 10.0 gm/dl (14.0-18.0) L 09/20/21 05:18 ABG Carboxyhemoglobin 1.7 % (0.0-5.0) 09/20/21 05:18 ABG Methemoglobin 0.5 % (0.0-1.5) 09/20/21 05:18 Oxyhemoglobin 95.1 % (95.0-99.0) 09/20/21 05:18 FiO2 30 % 09/20/21 05:18 Sodium 138 mmol/L (137-145) 09/22/21 00:49 Potassium 4.1 mmol/L (3.6-5.0) 09/22/21 00:49 Chloride 99.8 mmol/L (98-107) 09/22/21 00:49 Carbon Dioxide 24 mmol/L (22-30) 09/22/21 00:49 Anion Gap 18 mmol/L 09/22/21 00:49 BUN 9 mg/dL (9-20) 09/22/21 00:49 Creatinine 0.6 mg/dL (0.8-1.3) L 09/22/21 00:49 Estimated GFR > 60 ml/min 09/22/21 00:49 BUN/Creatinine Ratio 15 % 09/22/21 00:49 Glucose 112 mg/dL (75-100) H 09/22/21 00:49 POC Glucose 112 mg/dL (70-105) H 09/21/21 21:21 Lactic Acid 0.60 mmol/L (0.7-2.0) L 09/18/21 Unknown Calcium 8.7 mg/dL (8.4-10.2) 09/22/21 00:49 Phosphorus 3.30 mg/dL (2.5-4.5) D 09/19/21 21:33 Magnesium 1.70 mg/dL (1.7-2.3) 09/20/21 04:00 Total Bilirubin 0.80 mg/dL (0.1-1.2) 09/19/21 21:33 Direct Bilirubin 0.3 mg/dL (0-0.2) H 09/19/21 21:33 Indirect Bilirubin 0.5 mg/dL 09/19/21 21:33 AST 11 units/L (5-40) 09/19/21 21:33 ALT 10 units/L (7-56) 09/19/21 21:33 Alkaline Phosphatase 68 units/L (35-129) 09/19/21 21:33 Total Creatine Kinase 95 units/L (55-170) 09/17/21 09:18 Troponin T < 0.010 ng/mL (0.00-0.029) 09/16/21 17:14 NT-Pro-B Natriuret Pep 342.9 pg/mL (0-900) 09/16/21 17:14 Total Protein 5.9 g/dL (6.3-8.2) L 09/19/21 21:33 Albumin 3.0 g/dL (3.9-5) L 09/19/21 21:33 Albumin/Globulin Ratio 1.0 % 09/19/21 21:33 Urine Color (Yellow) 09/16/21 17:10 Urine Turbidity Cloudy (Clear) 09/16/21 17:10 Urine pH 5.0 (5.0-7.0) 09/16/21 17:10 Ur Specific [place] 1.023 (1.003-1.030) 09/16/21 17:10 Urine Protein 100 mg/dl mg/dL (Negative) 09/16/21 17:10 Urine Glucose (UA) Neg mg/dL (Negative) 09/16/21 17:10 Urine Ketones 80 mg/dL (Negative) 09/16/21 17:10 Urine Blood Sm (Negative) 09/16/21 17:10 Urine Nitrite Neg (Negative) 09/16/21 17:10 Urine Bilirubin Neg (Negative) 09/16/21 17:10 Urine Urobilinogen < 2.0 mg/dL (<2.0) 09/16/21 17:10 Ur Leukocyte Esterase Mod (Negative) 09/16/21 17:10 Urine WBC (Auto) 59.0 /HPF (0.0-6.0) H 09/16/21 17:10 Urine RBC (Auto) 8.0 /HPF (0.0-6.0) 09/16/21 17:10 U Epithel Cells (Auto) 1.0 /HPF (0-13.0) 09/16/21 17:10 Urine Bacteria (Auto) 2+ /HPF (Negative) 09/16/21 17:10 Hyaline Casts 152 /LPF 09/16/21 17:10 Urine Mucus 3+ /HPF 09/16/21 17:10 Urine Yeast (Budding) Not Reportable 09/16/21 17:10 Urine Opiates Screen Presumptive negative 09/16/21 17:13 Urine Methadone Screen Presumptive negative 09/16/21 17:13 Ur Barbiturates Screen Presumptive negative 09/16/21 17:13 Ur Phencyclidine Scrn Presumptive negative 09/16/21 17:13 Ur Amphetamines Screen Presumptive positive 09/16/21 17:13 U Benzodiazepines Scrn Presumptive negative 09/16/21 17:13 Urine Cocaine Screen Presumptive negative 09/16/21 17:13 U Marijuana (THC) Screen Presumptive negative 09/16/21 17:13 Drugs of Abuse Note Disclamer 09/16/21 17:13 Plasma/Serum Alcohol < 0.01 % (0-0.07) 09/16/21 18:17 Blood Type A POSITIVE 09/16/21 21:00 Antibody Screen Negative 09/16/21 21:00 Microbiology: Microbiology 09/16/21 17:14 Peripheral/Venous Blood Culture - Final NO GROWTH AFTER 5 DAYS [place]/IV: Voiding Method Condom Catheter Active Medications - Current Medications Current Medications: Generic Name Dose Route Start Last Admin Trade Name Freq PRN Reason Stop Dose Admin Acetaminophen 650 mg 09/16/21 23:25 09/21/21 20:24 Acetaminophen 325 Mg Tab PO 650 mg Q4H PRN Administration Pain MILD(1-3)/Fever >100.5/CAAL Albuterol 2.5 mg 09/16/21 23:25 Albuterol 2.5 Mg/3 Ml Nebu IH Q3HRT PRN Shortness Of Breath Aspirin 81 mg 09/22/21 10:00 09/22/21 10:13 Aspirin 81 Mg Tab Chew PO 81 mg QDAY DG Administration Carvedilol 12.5 mg 09/22/21 11:00 09/22/21 10:17 Carvedilol 12.5 Mg Tab PO 12.5 mg BID DG Administration Dextrose 50 ml 09/20/21 13:14 Dextrose 50% In Water (25gm) 50 Ml Syringe IV Q30MIN PRN Hypoglycemia Protocol Famotidine 20 mg 09/22/21 10:00 09/22/21 10:10 Famotidine 20 Mg Tab PO 20 mg BID DG Administration Folic Acid 1 mg 09/22/21 10:00 09/22/21 10:15 Folic Acid 1 Mg Tab PO 1 mg QDAY DG Administration Hydralazine HCl 10 mg 09/16/21 23:42 09/20/21 17:37 Hydralazine 20 Mg/1 Ml Inj IV 10 mg Q6H PRN Administration Blood Pressure Levofloxacin/Dextrose 750 mg in 150 mls @ 100 mls/hr 09/18/21 15:00 09/21/21 15:55 Levaquin 750mg/150ml IV 09/22/21 16:29 100 mls/hr Q24H DG Administration Protocol Dexmedetomidine HCl 400 mcg/ 104 mls @ 3.24 mls/hr 09/19/21 23:45 09/21/21 09:45 Sodium Chloride IV 0 mcg/kg/hr TITRATE DG 0 mls/hr Titration Protocol 0.2 MCG/KG/HR Levetiracetam 1,500 mg 09/22/21 10:00 09/22/21 10:13 Levetiracetam 500 Mg/5 Ml Oral Liqd PO 1,500 mg BID DG Administration Lorazepam 2 mg 09/19/21 20:28 09/21/21 22:40 Lorazepam 2 Mg/Ml Vial IV 2 mg Q1H PRN Administration CIWA-Ar 8-15 Lorazepam 4 mg 09/19/21 20:28 09/21/21 14:33 Lorazepam 2 Mg/Ml Vial IV 4 mg Q1H PRN Administration CIWA-Ar 16-25 Lorazepam 4 mg 09/19/21 20:28 09/19/21 20:56 Lorazepam 2 Mg/Ml Vial IV 4 mg Q15MIN PRN Administration CIWA-Ar >25 Losartan Potassium 25 mg 09/22/21 10:00 09/22/21 10:09 Losartan 25 Mg Tab PO 25 mg QDAY DG Administration Ondansetron HCl 4 mg 09/16/21 23:25 Ondansetron 4 Mg/2 Ml Inj IV Q8H PRN Nausea And Vomiting Phenytoin 100 mg 09/22/21 14:00 Phenytoin 100 Mg/4 Ml Oral.Liqd PO Q8HR DG Quetiapine Fumarate 50 mg 09/21/21 10:00 09/22/21 10:08 Quetiapine 25 Mg Tab PO 50 mg BID DG Administration Senna/Docusate Sodium 1 tab 09/22/21 22:00 Sennosides/Docusate Sodium 8.6/50 Mg Tab PO QHS DG Sodium Chloride 10 ml 09/17/21 10:00 09/22/21 10:10 Sodium Chloride 0.9% 10 Ml Flush Syringe IV 10 ml BID DG Administration Sodium Chloride 10 ml 09/16/21 23:25 Sodium Chloride 0.9% 10 Ml Flush Syringe IV PRN PRN LINE FLUSH Thiamine HCl 100 mg 09/22/21 10:00 09/22/21 10:14 Thiamine 100 Mg Tab PO 100 mg QDAY DG Administration Nutrition/Malnutrition Assess - Dietary Evaluation Nutrition/Malnutrition Findings: Nutrition Notes Start: 09/17/21 11:59 Freq: Status: Active Protocol: Document 09/21/21 14:37 SHERLEY (Rec: 09/21/21 14:47 [facility] [id number]) Nutrition Notes Initial or Follow up Reassessment Other Pertinent Diagnosis Seizure D/O, Hyperthermia, EtOH dependence, legally blind Current Diet TF - Vital AF 1.2 at 60ml/hr Labs/Tests Na 132 Pertinent Medications Dilantin q8h Height 6 ft 2 in Weight 62.3 kg [place] Body Weight (kg) 86.36 BMI 17.6 Weight Status Underweight Subjective/Other Information Pt extubated yesterday; passed bedside swallow evaluation. PLANNING INTERN evaluation ordered this am . No TF infusing at time of visit today. Burn Absent Trauma Absent #2 Nutrition Diagnosis Underweight Diagnosis Progress(for reassessment Continues documentation) #1 Nutrition Diagnosis Inadequate oral intake Diagnosis Progress(for reassessment Continues documentation) Is patient on ventilator? No Is Patient Ambulatory and/or Out of Bed No REE-([facility]-confined to bed) [phone] Kcal/Kg value to use for calculation 35 Approximate Energy Requirements Using 2181 kcal/Kg Calculation Used for Recommendations Kcal/kg Additional Notes Pro needs 1.2-2g/k-125g/ day Fluid needs 1ml/kcal Nutrition Intervention Nutrition Support: Continue Vital AF 1.2 if unable to advance diet. Adjust rate for dilantin administration if dilantin administered via PEG tube. Goal #1 Resume EN support if unable to advance diet Follow-Up By: 09/23/21 Additional Comments F/U: PLANNING INTERN evaluation, diet advancement vs TF restart ( adjust rate for dilantin administration)
--- NOTE | 2021-09-20 12:27 | Progress Note ---
Assessment and Plan 66 y/o male with acute respiratory failure secondary to seizures, likely prompted by hyperthermia (multifactorial including drugs). 09/20/21: Will attempt extubation today. There has been no further seizure like activity. Continue to monitor for withdrawal symptoms 09/19/21: No sedation. EEG still not available. Monitor fluid balance. PSV as tolerated. 09/18/21: No sedation. Follow up EEG results. Echo results are stable with depressed EF. Continue PSV trials as tolerated. 1. Continue to monitor off sedation 2. There was question of GI bleed but no active bleeding seen and stable H/H, will stop PPI and octreotide 3. Does not appear to infectious causes for encephalopathy and or fever, will stop abx therapy 4. Agree with EEG for seizures, especially given lack of improvement in mental state. Tele neuro seeing patient 5. Feed patient 6. Cards consulted. Prior echo shows and EF of 30%, repeating today. cct 31 minutes Subjective Date of service: 09/20/21 Principal diagnosis: pSVT Interval history: More awake today. Objective Vital Signs - 12hr 09/20/21 09/20/21 09/20/21 00:31 01:00 01:30 Temperature Pulse Rate 102 H 88 90 Pulse Rate [ From Monitor] Respiratory 22 18 18 Rate Blood Pressure 137/76 106/64 133/78 O2 Sat by Pulse 97 97 98 Oximetry 09/20/21 09/20/21 09/20/21 02:01 02:31 03:00 Temperature Pulse Rate 89 89 85 Pulse Rate [ From Monitor] Respiratory 19 22 18 Rate Blood Pressure 108/61 75/41 119/67 O2 Sat by Pulse 97 97 99 Oximetry 09/20/21 09/20/21 09/20/21 03:30 03:50 04:00 Temperature 98.3 F Pulse Rate 89 89 Pulse Rate [ 90 From Monitor] Respiratory 19 21 Rate Blood Pressure 144/86 144/86 O2 Sat by Pulse 99 100 100 Oximetry 09/20/21 09/20/21 09/20/21 04:01 04:31 05:00 Temperature Pulse Rate 97 H 91 H 87 Pulse Rate [ From Monitor] Respiratory 26 H 23 18 Rate Blood Pressure 150/85 143/86 115/69 O2 Sat by Pulse 94 100 100 Oximetry 09/20/21 09/20/21 09/20/21 05:30 06:01 06:30 Temperature Pulse Rate 80 88 84 Pulse Rate [ From Monitor] Respiratory 19 19 19 Rate Blood Pressure 115/68 150/84 128/89 O2 Sat by Pulse 100 99 97 Oximetry 09/20/21 09/20/21 09/20/21 07:00 07:30 07:48 Temperature 98.2 F Pulse Rate 83 79 Pulse Rate [ From Monitor] Respiratory 18 20 Rate Blood Pressure 140/85 135/81 O2 Sat by Pulse 100 100 Oximetry 09/20/21 09/20/21 09/20/21 07:54 08:00 08:30 Temperature Pulse Rate 75 76 73 Pulse Rate [ 106 H From Monitor] Respiratory 18 18 Rate Blood Pressure 135/81 125/75 121/70 O2 Sat by Pulse 98 100 100 Oximetry 09/20/21 09/20/21 09/20/21 09:00 09:16 09:30 Temperature Pulse Rate 71 70 77 Pulse Rate [ From Monitor] Respiratory 18 16 Rate Blood Pressure 131/80 131/80 140/91 O2 Sat by Pulse 100 100 Oximetry 09/20/21 09/20/21 09/20/21 10:00 10:31 11:00 Temperature Pulse Rate 78 73 69 Pulse Rate [ From Monitor] Respiratory 20 15 16 Rate Blood Pressure 145/74 116/66 102/60 O2 Sat by Pulse 100 98 98 Oximetry 09/20/21 09/20/21 09/20/21 11:30 11:52 12:00 Temperature 98.7 F Pulse Rate 69 Pulse Rate [ 106 H From Monitor] Respiratory 16 23 Rate Blood Pressure 113/70 O2 Sat by Pulse 100 98 Oximetry 09/20/21 12:01 Temperature Pulse Rate 71 Pulse Rate [ From Monitor] Respiratory 18 Rate Blood Pressure 137/79 O2 Sat by Pulse 99 Oximetry CBC and BMP: 09/20/21 04:00 09/20/21 04:00 ABG, PT/INR, D-dimer: ABG ABG pH 7.432 pH Units (7.350-7.450) 09/20/21 05:18 ABG pCO2 43.4 mm Hg 09/20/21 05:18 ABG pO2 88.4 mm Hg (80.0-90.0) 09/20/21 05:18 ABG O2 Saturation 97.2 % (95.0-99.0) 09/20/21 05:18 PT/INR, D-dimer PT 16.1 Sec. (12.2-14.9) H 09/16/21 19:53 INR 1.16 (0.87-1.13) H 09/16/21 19:53 Abnormal lab findings: Abnormal Labs 09/16/21 09/16/21 09/16/21 16:59 17:10 17:14 Hct MCV 96 H MCH 33 H MCHC Plt Count Lymph % (Auto) [place]abella % (Auto) 7.9 H Lymph # (Auto) Seg Neutrophils % PT INR ABG pH ABG pO2 ABG HCO3 ABG O2 Saturation ABG Base Excess ABG Hemoglobin Sodium Potassium Chloride Carbon Dioxide BUN Creatinine Glucose POC Glucose 144 H Lactic Acid Calcium Phosphorus Magnesium Direct Bilirubin Total Protein Albumin Urine WBC (Auto) 59.0 H 09/16/21 09/16/21 09/16/21 17:14 17:14 19:53 Hct MCV MCH MCHC Plt Count Lymph % (Auto) [place] % (Auto) Lymph # (Auto) Seg Neutrophils % PT 16.1 H INR 1.16 H ABG pH ABG pO2 ABG HCO3 ABG O2 Saturation ABG Base Excess ABG Hemoglobin Sodium 135 L Potassium 5.2 H Chloride Carbon Dioxide 16 L BUN Creatinine Glucose 130 H POC Glucose Lactic Acid 3.20 H* Calcium Phosphorus Magnesium 1.40 L Direct Bilirubin Total Protein Albumin Urine WBC (Auto) 09/16/21 09/17/21 09/17/21 20:00 05:10 05:16 Hct 35.0 L D MCV 95 H MCH 33 H MCHC 35 H Plt Count 87 L Lymph % (Auto) 13.1 L [place]abella % (Auto) 11.8 H Lymph # (Auto) 0.7 L Seg Neutrophils % 74.9 H PT INR ABG pH 7.333 L ABG pO2 433.9 H 120.3 H ABG HCO3 ABG O2 Saturation 99.6 H ABG Base Excess -3.5 L -4.3 L ABG Hemoglobin 13.1 L 12.1 L Sodium Potassium Chloride Carbon Dioxide BUN Creatinine Glucose POC Glucose Lactic Acid Calcium Phosphorus Magnesium Direct Bilirubin Total Protein Albumin Urine WBC (Auto) 09/17/21 09/17/21 09/18/21 05:16 09:18 00:10 Hct MCV MCH MCHC Plt Count Lymph % (Auto) [place] % (Auto) Lymph # (Auto) Seg Neutrophils % PT INR ABG pH ABG pO2 ABG HCO3 ABG O2 Saturation ABG Base Excess ABG Hemoglobin Sodium Potassium 2.9 L* D 3.4 L Chloride Carbon Dioxide 21 L BUN Creatinine Glucose 108 H POC Glucose 116 H Lactic Acid Calcium 7.7 L D Phosphorus Magnesium Direct Bilirubin Total Protein 5.4 L D Albumin 3.1 L Urine WBC (Auto) 09/18/21 09/18/21 09/18/21 04:45 05:17 Unknown Hct MCV 95 H MCH MCHC Plt Count 89 L Lymph % (Auto) [place] % (Auto) Lymph # (Auto) Seg Neutrophils % PT INR ABG pH ABG pO2 107.9 H ABG HCO3 ABG O2 Saturation ABG Base Excess ABG Hemoglobin 13.3 L Sodium Potassium Chloride Carbon Dioxide BUN Creatinine Glucose POC Glucose 133 H Lactic Acid Calcium Phosphorus Magnesium Direct Bilirubin Total Protein Albumin Urine WBC (Auto) 09/18/21 09/18/21 09/19/21 Unknown Unknown 00:27 Hct MCV MCH MCHC Plt Count Lymph % (Auto) [place] % (Auto) Lymph # (Auto) Seg Neutrophils % PT INR ABG pH ABG pO2 ABG HCO3 ABG O2 Saturation ABG Base Excess ABG Hemoglobin Sodium 136 L Potassium Chloride Carbon Dioxide BUN Creatinine 0.6 L Glucose 134 H POC Glucose 107 H Lactic Acid 0.60 L Calcium 8.2 L Phosphorus 1.60 L Magnesium 1.40 L Direct Bilirubin Total Protein Albumin Urine WBC (Auto) 09/19/21 09/19/21 09/19/21 03:35 05:59 05:59 Hct MCV 95 H MCH 33 H MCHC 35 H Plt Count 88 L Lymph % (Auto) [place] % (Auto) Lymph # (Auto) Seg Neutrophils % PT INR ABG pH ABG pO2 110.7 H ABG HCO3 ABG O2 Saturation ABG Base Excess ABG Hemoglobin 10.8 L Sodium 133 L Potassium 3.4 L Chloride Carbon Dioxide BUN 7 L Creatinine 0.5 L Glucose 116 H POC Glucose Lactic Acid Calcium 8.2 L Phosphorus 2.10 L D Magnesium 1.40 L Direct Bilirubin Total Protein Albumin Urine WBC (Auto) 09/19/21 09/20/21 09/20/21 21:33 04:00 04:00 Hct MCV 95 H MCH MCHC Plt Count 105 L Lymph % (Auto) [place] % (Auto) Lymph # (Auto) Seg Neutrophils % PT INR ABG pH ABG pO2 ABG HCO3 ABG O2 Saturation ABG Base Excess ABG Hemoglobin Sodium 134 L 134 L Potassium Chloride 97.0 L Carbon Dioxide BUN 6 L 8 L Creatinine 0.5 L 0.5 L Glucose 158 H 113 H POC Glucose Lactic Acid Calcium Phosphorus Magnesium Direct Bilirubin 0.3 H Total Protein 5.9 L Albumin 3.0 L Urine WBC (Auto) 09/20/21 05:18 Hct MCV MCH MCHC Plt Count Lymph % (Auto) [place] % (Auto) Lymph # (Auto) Seg Neutrophils % PT INR ABG pH ABG pO2 ABG HCO3 28.3 H ABG O2 Saturation ABG Base Excess 3.6 H ABG Hemoglobin 10.0 L Sodium Potassium Chloride Carbon Dioxide BUN Creatinine Glucose POC Glucose Lactic Acid Calcium Phosphorus Magnesium Direct Bilirubin Total Protein Albumin Urine WBC (Auto) Allied health notes reviewed: nursing
[2021-09-20] MEDS ORDERED: DEXTROSE 50% IN WATER (25GM) 50 ML SYRINGE IV PRN (13:14)
--- NOTE | 2021-09-20 15:10 | Electrocardiograph Report ---
[facility] Test Date: 2021-09-18 Test Time: 07:20:18 Pat Name: ANDREW RASHID Department: Room: A261 1 Gender: M [employer]: AIMEE : [id number] Requested By: NATALIA SMITH Order Number: [id number] Reading MD: Bertha Vu Measurements Intervals [place] Rate: 106 P: 69 GA: 156 QRS: 69 QRSD: 107 T: 69 QT: 356 QTc: 473 Interpretive Statements Sinus tachycardia Compared to ECG 09/16/2021 16:36:59 ST (T wave) deviation no longer present Electronically Signed On 09-20-2021 15:10:00 EDT by Bertha Vu
[2021-09-20] MEDS: LORazepam 2 MG/ML VIAL IV PRN ×6 (16:40→22:18)
[2021-09-20] MEDS: hydrALAZINE 20 MG/1 ML INJ IV PRN (17:37)
[2021-09-20] MEDS: SENNOSIDES/DOCUSATE SODIUM 8.6/50 MG TAB FEEDTUBE SCH (21:59)
[2021-09-20] MEDS: ACETAMINOPHEN 325 MG TAB PO PRN (23:20)
[2021-09-21] MEDS: LORazepam 2 MG/ML VIAL IV PRN ×3 (03:43→22:40)
[2021-09-21 05:03] LABS: Blood Urea Nitrogen 9 mg/dL (9-20); Calcium 8.8 mg/dL (8.4-10.2); Hemolysis Index 9
[2021-09-21 05:11] LABS: BUN/Creatinine Ratio 15
[2021-09-21 05:21] LABS: Hematocrit 39.2 % (35.5-45.6); Hemoglobin 13.6 gm/dl (11.8-15.2); Mean Corpuscular Volume 96 fl (84-94); Red Blood Count 4.09 M/mm3 (3.65-5.03)
[2021-09-21 05:22] LABS: Mean Corpuscular HGB Conc 35 % (32-34); Platelet Count 140 K/mm3 (140-440); Red Cell Distribution Width 13.2 % (13.2-15.2)
[2021-09-21] MEDS: PHENYTOIN 100 MG/4 ML ORAL.LIQD FEEDTUBE SCH ×3 (06:01→21:02)
--- NOTE | 2021-09-21 08:12 | Progress Note ---
Assessment and Plan 66 y/o male with acute respiratory failure secondary to seizures, likely prompted by hyperthermia (multifactorial including drugs). 09/21/21: Offered patient tramadol if he wants something for pain stronger than tylenol. Will not give IV pain meds. Swallow evaluation. Will start BID seroquel and if tolerates being off precedex, transfer to floor, tele given his admission history. 09/20/21: Will attempt extubation today. There has been no further seizure like activity. Continue to monitor for withdrawal symptoms 09/19/21: No sedation. EEG still not available. Monitor fluid balance. PSV as tolerated. 09/18/21: No sedation. Follow up EEG results. Echo results are stable with depressed EF. Continue PSV trials as tolerated. 1. Continue to monitor off sedation 2. There was question of GI bleed but no active bleeding seen and stable H/H, will stop PPI and octreotide 3. Does not appear to infectious causes for encephalopathy and or fever, will stop abx therapy 4. Agree with EEG for seizures, especially given lack of improvement in mental state. Tele neuro seeing patient 5. Feed patient 6. Cards consulted. Prior echo shows and EF of 30%, repeating today. cct 31 minutes Subjective Date of service: 09/21/21 Principal diagnosis: pSVT Interval history: No acute events. Much more awake. Requested Demerol, then Dilaudid then morphine. Objective Vital Signs - 12hr 09/20/21 09/20/21 09/20/21 20:30 21:00 21:30 Temperature Pulse Rate 117 H 118 H 121 H Pulse Rate [ From Monitor] Respiratory 31 H 32 H 35 H Rate Blood Pressure 163/91 159/91 151/100 O2 Sat by Pulse 98 98 97 Oximetry 09/20/21 09/20/21 09/20/21 21:59 22:00 22:30 Temperature Pulse Rate 120 H 119 H 111 H Pulse Rate [ From Monitor] Respiratory 26 H 28 H Rate Blood Pressure 151/100 158/87 137/81 O2 Sat by Pulse 98 96 Oximetry 09/20/21 09/20/21 09/20/21 23:01 23:18 23:23 Temperature 101.1 F H Pulse Rate 103 H Pulse Rate [ From Monitor] Respiratory 22 Rate Blood Pressure 116/67 O2 Sat by Pulse 97 96 Oximetry 09/20/21 09/20/21 09/21/21 23:30 23:51 00:00 Temperature Pulse Rate 98 H 93 H 101 H Pulse Rate [ 78 From Monitor] Respiratory 25 H 25 H 35 H Rate Blood Pressure 125/77 125/77 125/77 O2 Sat by Pulse 99 97 97 Oximetry 09/21/21 09/21/21 09/21/21 00:30 01:01 01:30 Temperature Pulse Rate 87 89 93 H Pulse Rate [ From Monitor] Respiratory 24 24 28 H Rate Blood Pressure 73/40 102/59 113/75 O2 Sat by Pulse 95 97 99 Oximetry 09/21/21 09/21/21 09/21/21 02:00 02:30 03:01 Temperature Pulse Rate 86 87 86 Pulse Rate [ From Monitor] Respiratory 22 22 27 H Rate Blood Pressure 121/68 132/86 143/83 O2 Sat by Pulse 100 100 100 Oximetry 09/21/21 09/21/21 09/21/21 03:31 03:58 04:00 Temperature 98.2 F Pulse Rate 89 91 H Pulse Rate [ 91 H From Monitor] Respiratory 17 29 H Rate Blood Pressure 147/84 144/92 O2 Sat by Pulse 100 99 Oximetry 09/21/21 09/21/21 09/21/21 04:30 05:00 05:30 Temperature Pulse Rate 89 85 91 H Pulse Rate [ From Monitor] Respiratory 28 H 25 H 24 Rate Blood Pressure 135/73 126/73 141/82 O2 Sat by Pulse 100 100 100 Oximetry 09/21/21 06:00 Temperature Pulse Rate 86 Pulse Rate [ From Monitor] Respiratory 20 Rate Blood Pressure 128/80 O2 Sat by Pulse 100 Oximetry CBC and BMP: 09/21/21 04:00 09/21/21 04:00 ABG, PT/INR, D-dimer: ABG ABG pH 7.432 pH Units (7.350-7.450) 09/20/21 05:18 ABG pCO2 43.4 mm Hg 09/20/21 05:18 ABG pO2 88.4 mm Hg (80.0-90.0) 09/20/21 05:18 ABG O2 Saturation 97.2 % (95.0-99.0) 09/20/21 05:18 PT/INR, D-dimer PT 16.1 Sec. (12.2-14.9) H 09/16/21 19:53 INR 1.16 (0.87-1.13) H 09/16/21 19:53 Abnormal lab findings: Abnormal Labs 09/16/21 09/16/21 09/16/21 16:59 17:10 17:14 Hct MCV 96 H MCH 33 H MCHC Plt Count Lymph % (Auto) [place] % (Auto) 7.9 H Lymph # (Auto) Seg Neutrophils % PT INR ABG pH ABG pO2 ABG HCO3 ABG O2 Saturation ABG Base Excess ABG Hemoglobin Sodium Potassium Chloride Carbon Dioxide BUN Creatinine Glucose POC Glucose 144 H Lactic Acid Calcium Phosphorus Magnesium Direct Bilirubin Total Protein Albumin Urine WBC (Auto) 59.0 H 09/16/21 09/16/21 09/16/21 17:14 17:14 19:53 Hct MCV MCH MCHC Plt Count Lymph % (Auto) [place] % (Auto) Lymph # (Auto) Seg Neutrophils % PT 16.1 H INR 1.16 H ABG pH ABG pO2 ABG HCO3 ABG O2 Saturation ABG Base Excess ABG Hemoglobin Sodium 135 L Potassium 5.2 H Chloride Carbon Dioxide 16 L BUN Creatinine Glucose 130 H POC Glucose Lactic Acid 3.20 H* Calcium Phosphorus Magnesium 1.40 L Direct Bilirubin Total Protein Albumin Urine WBC (Auto) 09/16/21 09/17/21 09/17/21 20:00 05:10 05:16 Hct 35.0 L D MCV 95 H MCH 33 H MCHC 35 H Plt Count 87 L Lymph % (Auto) 13.1 L [place] % (Auto) 11.8 H Lymph # (Auto) 0.7 L Seg Neutrophils % 74.9 H PT INR ABG pH 7.333 L ABG pO2 433.9 H 120.3 H ABG HCO3 ABG O2 Saturation 99.6 H ABG Base Excess -3.5 L -4.3 L ABG Hemoglobin 13.1 L 12.1 L Sodium Potassium Chloride Carbon Dioxide BUN Creatinine Glucose POC Glucose Lactic Acid Calcium Phosphorus Magnesium Direct Bilirubin Total Protein Albumin Urine WBC (Auto) 09/17/21 09/17/21 09/18/21 05:16 09:18 00:10 Hct MCV MCH MCHC Plt Count Lymph % (Auto) [place] % (Auto) Lymph # (Auto) Seg Neutrophils % PT INR ABG pH ABG pO2 ABG HCO3 ABG O2 Saturation ABG Base Excess ABG Hemoglobin Sodium Potassium 2.9 L* D 3.4 L Chloride Carbon Dioxide 21 L BUN Creatinine Glucose 108 H POC Glucose 116 H Lactic Acid Calcium 7.7 L D Phosphorus Magnesium Direct Bilirubin Total Protein 5.4 L D Albumin 3.1 L Urine WBC (Auto) 09/18/21 09/18/21 09/18/21 04:45 05:17 Unknown Hct MCV 95 H MCH MCHC Plt Count 89 L Lymph % (Auto) [place] % (Auto) Lymph # (Auto) Seg Neutrophils % PT INR ABG pH ABG pO2 107.9 H ABG HCO3 ABG O2 Saturation ABG Base Excess ABG Hemoglobin 13.3 L Sodium Potassium Chloride Carbon Dioxide BUN Creatinine Glucose POC Glucose 133 H Lactic Acid Calcium Phosphorus Magnesium Direct Bilirubin Total Protein Albumin Urine WBC (Auto) 09/18/21 09/18/21 09/19/21 Unknown Unknown 00:27 Hct MCV MCH MCHC Plt Count Lymph % (Auto) [place] % (Auto) Lymph # (Auto) Seg Neutrophils % PT INR ABG pH ABG pO2 ABG HCO3 ABG O2 Saturation ABG Base Excess ABG Hemoglobin Sodium 136 L Potassium Chloride Carbon Dioxide BUN Creatinine 0.6 L Glucose 134 H POC Glucose 107 H Lactic Acid 0.60 L Calcium 8.2 L Phosphorus 1.60 L Magnesium 1.40 L Direct Bilirubin Total Protein Albumin Urine WBC (Auto) 09/19/21 09/19/21 09/19/21 03:35 05:59 05:59 Hct MCV 95 H MCH 33 H MCHC 35 H Plt Count 88 L Lymph % (Auto) [place] % (Auto) Lymph # (Auto) Seg Neutrophils % PT INR ABG pH ABG pO2 110.7 H ABG HCO3 ABG O2 Saturation ABG Base Excess ABG Hemoglobin 10.8 L Sodium 133 L Potassium 3.4 L Chloride Carbon Dioxide BUN 7 L Creatinine 0.5 L Glucose 116 H POC Glucose Lactic Acid Calcium 8.2 L Phosphorus 2.10 L D Magnesium 1.40 L Direct Bilirubin Total Protein Albumin Urine WBC (Auto) 09/19/21 09/20/21 09/20/21 21:33 04:00 04:00 Hct MCV 95 H MCH MCHC Plt Count 105 L Lymph % (Auto) [place] % (Auto) Lymph # (Auto) Seg Neutrophils % PT INR ABG pH ABG pO2 ABG HCO3 ABG O2 Saturation ABG Base Excess ABG Hemoglobin Sodium 134 L 134 L Potassium Chloride 97.0 L Carbon Dioxide BUN 6 L 8 L Creatinine 0.5 L 0.5 L Glucose 158 H 113 H POC Glucose Lactic Acid Calcium Phosphorus Magnesium Direct Bilirubin 0.3 H Total Protein 5.9 L Albumin 3.0 L Urine WBC (Auto) 09/20/21 09/21/21 09/21/21 05:18 04:00 04:00 Hct MCV 96 H MCH 33 H MCHC 35 H Plt Count Lymph % (Auto) [place] % (Auto) Lymph # (Auto) Seg Neutrophils % PT INR ABG pH ABG pO2 ABG HCO3 28.3 H ABG O2 Saturation ABG Base Excess 3.6 H ABG Hemoglobin 10.0 L Sodium 132 L Potassium Chloride 95.8 L Carbon Dioxide BUN Creatinine 0.6 L Glucose 107 H POC Glucose Lactic Acid Calcium Phosphorus Magnesium Direct Bilirubin Total Protein Albumin Urine WBC (Auto) 09/21/21 06:21 Hct MCV MCH MCHC Plt Count Lymph % (Auto) [place] % (Auto) Lymph # (Auto) Seg Neutrophils % PT INR ABG pH ABG pO2 ABG HCO3 ABG O2 Saturation ABG Base Excess ABG Hemoglobin Sodium Potassium Chloride Carbon Dioxide BUN Creatinine Glucose POC Glucose 109 H Lactic Acid Calcium Phosphorus Magnesium Direct Bilirubin Total Protein Albumin Urine WBC (Auto) Allied health notes reviewed: nursing
--- NOTE | 2021-09-21 08:17 | Progress Note ---
<JORY BE - Last Filed: 09/21/21 15:06> Assessment and Plan - Patient Problems (1) Acute respiratory failure Current Visit: Yes Status: Acute Plan to address problem: Has resolved-patient on room air at the time of assessment. -Intubated on 09/16 with 7.50 ETT at 24 the lips for airway protection in the ED Continue to monitor 02 sat. (2) Acute hyponatremia Current Visit: No Status: Acute Plan to address problem: likely 2/2 to dehydration/alcohol use Monitor sodium level Monitor kidney function Avoid nephrotoxic drugs (3) Alcohol dependence Current Visit: No Status: Acute Plan to address problem: Will discussed alcohol use cessation when patient is mentally stable Safety and fall precaution Continue CIWA protocol (4) Seizures Current Visit: Yes Status: Acute Plan to address problem: Amphetamine use, malignant hyperthermia, seizures, h/o EtOH use, legally blind, seizure disorder Presented with temperature of 107.3 F Neurology consulted, appreciate recommendations CIWA-continue Precedex gtt Seizure precautions CT head with no acute intracranial abnormality MRI brain pending Neurology recommends to continue Keppra 500 mg twice daily, Dilantin 100 mg 3 times daily UDS positive for amphetamines Neurology recommends follow-up with neurology within 2 weeks with seizure restrictions and placed into care of a neurologist Bilateral wrist restraints in place for safety EEG completed, pending read Continue Thiamine, folic acid (5) Full code status Current Visit: Yes Status: Acute Plan to address problem: Patient is full code History Interval history: patient seen at bedside. he has bilateral arm restraint. came with seizure disorder likely 2/2 alcohol abuse. i reviewed lab, mar, and v/s. i discussed plan of care with dr hassan-only tramadol for pain-seraquel is ordered. patient mildly lethargic, opens eyes and responds to questions appropriately. Patient still agitated-continue sedation with Precedex. Will transfer patient to the floor when stable. The high probability of a clinically significant, sudden or life threatening deterioration of the [multi] system(s) required my full and direct attention, intervention and personal management. The aggregate critical care time was [60] minutes. This time is in addition to time spent performing reported procedures but includes the following: [x] Data Review and interpretation [x] Patient assessment and monitoring of vital signs [x] Documentation [x] Medication orders and management Disposition Plan: icu Total Time Spent with Patient (Minutes): 60 Hospitalist Physical - Constitutional Vitals: Temp Pulse Resp BP Pulse Ox 98.2 F 86 20 128/80 100 09/21/21 03:58 09/21/21 06:00 09/21/21 06:00 09/21/21 06:00 09/21/21 06:00 General appearance: Present: no acute distress, other (bilateral arm restraint for safety) - EENT ENT: hearing intact - Respiratory Respiratory: bilateral: diminished - Integumentary Integumentary: Present: warm, dry - Psychiatric Psychiatric: agitated, other (responds to questions appropriately) - Neurologic Neurologic: moves all extremities - Allied Health Allied health notes reviewed: nursing, PT HEART Score - HEART Score Troponin: Troponin T < 0.010 ng/mL (0.00-0.029) 09/16/21 17:14 Results - Labs CBC & Chem 7: 09/21/21 04:00 09/21/21 04:00 Labs: Laboratory Last Values WBC 10.7 K/mm3 (4.5-11.0) 09/21/21 04:00 RBC 4.09 M/mm3 (3.65-5.03) 09/21/21 04:00 Hgb 13.6 gm/dl (11.8-15.2) 09/21/21 04:00 Hct 39.2 % (35.5-45.6) 09/21/21 04:00 MCV 96 fl (84-94) H 09/21/21 04:00 MCH 33 pg (28-32) H 09/21/21 04:00 MCHC 35 % (32-34) H 09/21/21 04:00 RDW 13.2 % (13.2-15.2) 09/21/21 04:00 Plt Count 140 K/mm3 (140-440) 09/21/21 04:00 Lymph % (Auto) 13.1 % (13.4-35.0) L 09/17/21 05:16 [place] % (Auto) 11.8 % (0.0-7.3) H 09/17/21 05:16 Eos % (Auto) 0.1 % (0.0-4.3) 09/17/21 05:16 Baso % (Auto) 0.1 % (0.0-1.8) 09/17/21 05:16 Lymph # (Auto) 0.7 K/mm3 (1.2-5.4) L 09/17/21 05:16 [place] # (Auto) 0.6 K/mm3 (0.0-0.8) 09/17/21 05:16 Eos # (Auto) 0.0 K/mm3 (0.0-0.4) 09/17/21 05:16 Baso # (Auto) 0.0 K/mm3 (0.0-0.1) 09/17/21 05:16 Seg Neutrophils % 74.9 % (40.0-70.0) H 09/17/21 05:16 Seg Neutrophils # 3.8 K/mm3 (1.8-7.7) 09/17/21 05:16 PT 16.1 Sec. (12.2-14.9) H 09/16/21 19:53 INR 1.16 (0.87-1.13) H 09/16/21 19:53 APTT 25.8 Sec. (24.2-36.6) 09/16/21 19:53 ABG pH 7.432 pH Units (7.350-7.450) 09/20/21 05:18 ABG pCO2 43.4 mm Hg 09/20/21 05:18 ABG pO2 88.4 mm Hg (80.0-90.0) 09/20/21 05:18 ABG HCO3 28.3 mmol/L (20.0-26.0) H 09/20/21 05:18 ABG O2 Saturation 97.2 % (95.0-99.0) 09/20/21 05:18 ABG O2 Content 13.5 (0.0-44) 09/20/21 05:18 ABG Base Excess 3.6 mmol/L (-2.0-3.0) H 09/20/21 05:18 ABG Hemoglobin 10.0 gm/dl (14.0-18.0) L 09/20/21 05:18 ABG Carboxyhemoglobin 1.7 % (0.0-5.0) 09/20/21 05:18 ABG Methemoglobin 0.5 % (0.0-1.5) 09/20/21 05:18 Oxyhemoglobin 95.1 % (95.0-99.0) 09/20/21 05:18 FiO2 30 % 09/20/21 05:18 Sodium 132 mmol/L (137-145) L 09/21/21 04:00 Potassium 3.9 mmol/L (3.6-5.0) 09/21/21 04:00 Chloride 95.8 mmol/L (98-107) L 09/21/21 04:00 Carbon Dioxide 28 mmol/L (22-30) 09/21/21 04:00 Anion Gap 12 mmol/L 09/21/21 04:00 BUN 9 mg/dL (9-20) 09/21/21 04:00 Creatinine 0.6 mg/dL (0.8-1.3) L 09/21/21 04:00 Estimated GFR > 60 ml/min 09/21/21 04:00 BUN/Creatinine Ratio 15 % 09/21/21 04:00 Glucose 107 mg/dL (75-100) H 09/21/21 04:00 POC Glucose 109 mg/dL (70-105) H 09/21/21 06:21 Lactic Acid 0.60 mmol/L (0.7-2.0) L 09/18/21 Unknown Calcium 8.8 mg/dL (8.4-10.2) 09/21/21 04:00 Phosphorus 3.30 mg/dL (2.5-4.5) D 09/19/21 21:33 Magnesium 1.70 mg/dL (1.7-2.3) 09/20/21 04:00 Total Bilirubin 0.80 mg/dL (0.1-1.2) 09/19/21 21:33 Direct Bilirubin 0.3 mg/dL (0-0.2) H 09/19/21 21:33 Indirect Bilirubin 0.5 mg/dL 09/19/21 21:33 AST 11 units/L (5-40) 09/19/21 21:33 ALT 10 units/L (7-56) 09/19/21 21:33 Alkaline Phosphatase 68 units/L (35-129) 09/19/21 21:33 Total Creatine Kinase 95 units/L (55-170) 09/17/21 09:18 Troponin T < 0.010 ng/mL (0.00-0.029) 09/16/21 17:14 NT-Pro-B Natriuret Pep 342.9 pg/mL (0-900) 09/16/21 17:14 Total Protein 5.9 g/dL (6.3-8.2) L 09/19/21 21:33 Albumin 3.0 g/dL (3.9-5) L 09/19/21 21:33 Albumin/Globulin Ratio 1.0 % 09/19/21 21:33 Urine Color (Yellow) 09/16/21 17:10 Urine Turbidity Cloudy (Clear) 09/16/21 17:10 Urine pH 5.0 (5.0-7.0) 09/16/21 17:10 Ur Specific [place] 1.023 (1.003-1.030) 09/16/21 17:10 Urine Protein 100 mg/dl mg/dL (Negative) 09/16/21 17:10 Urine Glucose (UA) Neg mg/dL (Negative) 09/16/21 17:10 Urine Ketones 80 mg/dL (Negative) 09/16/21 17:10 Urine Blood Sm (Negative) 09/16/21 17:10 Urine Nitrite Neg (Negative) 09/16/21 17:10 Urine Bilirubin Neg (Negative) 09/16/21 17:10 Urine Urobilinogen < 2.0 mg/dL (<2.0) 09/16/21 17:10 Ur Leukocyte Esterase Mod (Negative) 09/16/21 17:10 Urine WBC (Auto) 59.0 /HPF (0.0-6.0) H 09/16/21 17:10 Urine RBC (Auto) 8.0 /HPF (0.0-6.0) 09/16/21 17:10 U Epithel Cells (Auto) 1.0 /HPF (0-13.0) 09/16/21 17:10 Urine Bacteria (Auto) 2+ /HPF (Negative) 09/16/21 17:10 Hyaline Casts 152 /LPF 09/16/21 17:10 Urine Mucus 3+ /HPF 09/16/21 17:10 Urine Yeast (Budding) Not Reportable 09/16/21 17:10 Urine Opiates Screen Presumptive negative 09/16/21 17:13 Urine Methadone Screen Presumptive negative 09/16/21 17:13 Ur Barbiturates Screen Presumptive negative 09/16/21 17:13 Ur Phencyclidine Scrn Presumptive negative 09/16/21 17:13 Ur Amphetamines Screen Presumptive positive 09/16/21 17:13 U Benzodiazepines Scrn Presumptive negative 09/16/21 17:13 Urine Cocaine Screen Presumptive negative 09/16/21 17:13 U Marijuana (THC) Screen Presumptive negative 09/16/21 17:13 Drugs of Abuse Note Disclamer 09/16/21 17:13 Plasma/Serum Alcohol < 0.01 % (0-0.07) 09/16/21 18:17 Blood Type A POSITIVE 09/16/21 21:00 Antibody Screen Negative 09/16/21 21:00 Microbiology: Microbiology 09/16/21 17:14 Peripheral/Venous Blood Culture - Preliminary NO GROWTH AFTER 4 DAYS [place]/IV: Voiding Method Condom Catheter Active Medications - Current Medications Current Medications: Generic Name Dose Route Start Last Admin Trade Name Freq PRN Reason Stop Dose Admin Acetaminophen 650 mg 09/16/21 23:25 09/20/21 23:20 Acetaminophen 325 Mg Tab PO 650 mg Q4H PRN Administration Pain MILD(1-3)/Fever >100.5/CAAL Albuterol 2.5 mg 09/16/21 23:25 Albuterol 2.5 Mg/3 Ml Nebu IH Q3HRT PRN Shortness Of Breath Aspirin 81 mg 09/17/21 10:00 09/20/21 09:16 Aspirin 81 Mg Tab Chew FEEDTUBE 81 mg QDAY DG Administration Carvedilol 6.25 mg 09/18/21 11:00 09/20/21 21:59 Carvedilol 6.25 Mg Tab FEEDTUBE 6.25 mg BID DG Administration Dextrose 50 ml 09/20/21 13:14 Dextrose 50% In Water (25gm) 50 Ml Syringe IV Q30MIN PRN Hypoglycemia Protocol Famotidine 20 mg 09/17/21 22:00 09/20/21 21:59 Famotidine 20 Mg Tab FEEDTUBE 20 mg BID DG Administration Folic Acid 1 mg 09/17/21 10:00 09/20/21 09:16 Folic Acid 1 Mg Tab FEEDTUBE 1 mg QDAY DG Administration Hydralazine HCl 10 mg 09/16/21 23:42 09/20/21 17:37 Hydralazine 20 Mg/1 Ml Inj IV 10 mg Q6H PRN Administration Blood Pressure Levofloxacin/Dextrose 750 mg in 150 mls @ 100 mls/hr 09/18/21 15:00 09/20/21 14:51 Levaquin 750mg/150ml IV 09/23/21 14:59 100 mls/hr Q24H DG Administration Protocol Dexmedetomidine HCl 400 mcg/ 104 mls @ 3.24 mls/hr 09/19/21 23:45 09/21/21 06:22 Sodium Chloride IV 0.1 mcg/kg/hr TITRATE DG 1.62 mls/hr Titration Protocol 0.2 MCG/KG/HR Levetiracetam 1,500 mg 09/18/21 22:00 09/20/21 21:59 Levetiracetam 500 Mg/5 Ml Oral Liqd FEEDTUBE 1,500 mg BID DG Administration Lorazepam 2 mg 09/19/21 20:28 09/20/21 20:22 Lorazepam 2 Mg/Ml Vial IV 2 mg Q1H PRN Administration CIWA-Ar 8-15 Lorazepam 4 mg 09/19/21 20:28 09/21/21 03:43 Lorazepam 2 Mg/Ml Vial IV 4 mg Q1H PRN Administration CIWA-Ar 16-25 Lorazepam 4 mg 09/19/21 20:28 09/19/21 20:56 Lorazepam 2 Mg/Ml Vial IV 4 mg Q15MIN PRN Administration CIWA-Ar >25 Losartan Potassium 25 mg 09/17/21 10:00 09/20/21 09:16 Losartan 25 Mg Tab FEEDTUBE 25 mg QDAY DG Administration Ondansetron HCl 4 mg 09/16/21 23:25 Ondansetron 4 Mg/2 Ml Inj IV Q8H PRN Nausea And Vomiting Phenytoin 100 mg 09/17/21 14:00 09/21/21 06:01 Phenytoin 100 Mg/4 Ml Oral.Liqd FEEDTUBE 100 mg Q8HR DG Administration Quetiapine Fumarate 50 mg 09/21/21 10:00 Quetiapine 25 Mg Tab PO BID DG Senna/Docusate Sodium 1 tab 09/17/21 22:00 09/20/21 21:59 Sennosides/Docusate Sodium 8.6/50 Mg Tab FEEDTUBE 1 tab QHS DG Administration Sodium Chloride 10 ml 09/17/21 10:00 09/20/21 22:00 Sodium Chloride 0.9% 10 Ml Flush Syringe IV 10 ml BID DG Administration Sodium Chloride 10 ml 09/16/21 23:25 Sodium Chloride 0.9% 10 Ml Flush Syringe IV PRN PRN LINE FLUSH Thiamine HCl 100 mg 09/17/21 10:00 09/20/21 09:16 Thiamine 100 Mg Tab FEEDTUBE 100 mg QDAY DG Administration Nutrition/Malnutrition Assess - Dietary Evaluation Nutrition/Malnutrition Findings: Nutrition Notes Start: 09/17/21 11:59 Freq: Status: Active Protocol: Document 09/17/21 11:59 MACIEJ (Rec: 09/17/21 12:47 MACIEJ [id number]) Nutrition Notes Need for Assessment generated 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 Labs/Tests 09/17: K 2.9, CO2 21, Glu 108, Ca 7.7. Pertinent Medications 09/17: D5ns @ 100 ml/hr, Folic acid, Thiamine, KCl 20mEq, Propofol @ 1.869 ml/hr (49 Kcal), others nutritionally unremarkable. 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 Weight Status Underweight Subjective/Other Information RD consult for skin risk, risk of malnutrition, and Low BMI assessments, and write/manage TF. Pt currently NPO. I will prescribe TF to provide Pt for energy/protein needs during LOS. Pt is on Mechanical Ventilation, O2 saturation @ 100%, according to Physical Assessment History notes. Pt presents unspecified rash and redness as signs of concern for skin risk at this time, according to Physical Assessment History notes. Pt presents underweight and EtOH dependence/pancreatitis as signs of concern for risk of malnutrition at this time, according to Physical Assessment History and History & Physical notes. Pt is homeless and legally blind, according to History & Physical notes. Pt's Low BMI seems to correspond to a natural body composition, probably not related to a sudden loss of body weight, but exacerbated by chronic malnutrition induced by EtOH dependence, since those signs of concern were mentioned in the Physical Assessment History and the History & Physical notes. Percent of energy/protein needs met: Pt currently NPO. Prescribed TF-Vital AF 1.2 Anton @ 60 ml/hr provides for energy/protein needs (1,715 Kcal/107 g) during LOS, 76% Kcal; 115% AA. Burn Absent Trauma Absent GI Symptoms None Food Allergy No Skin Integrity/Comment Unspecified rash and redness. Current % PO Other Fluid Accumulation N/A Reduced Lead Miner Strength N/A (non-severe) Protein-Calorie Malnutrition N\A #2 Nutrition Diagnosis Underweight Etiology Possibly secondary to EtOH dependence. As Evidenced by Signs and Symptoms BMI 17.6 Kg/m2. #1 Nutrition Diagnosis Inadequate oral intake Etiology Pt in mechanical ventilation. As Evidenced by Signs and Symptoms Pt currently oin NPO. Is patient on ventilator? Yes Is Patient Ambulatory and/or Out of Bed No [facility] 1778.796 Kcal/Kg value to use for calculation 36 Approximate Energy Requirements Using 2243 kcal/Kg Calculation Used for Recommendations Kcal/kg Additional Notes Protein: 1.2-1.5 g/Kg ABW; 74- 93 g/day. Fluids: 1 ml/Kcal, or as per MD. Nutrition Intervention Nutrition Support: Start TF-Vital AF 1.2 Anton @ 60 ml/hr. Flush: 180 ml water Q 4 hr, or asper MD. Kcal 1,715 Protein (gm) 107 Carbohydrates (gm) 158 Fat (gm) 77 Fluid (mL) 1,159 Fiber (gm) 7 % RDI: 76% Kcal; 115% AA. Goal #1 Provide at least 75% of energy /protein needs through Enteral Feeding during LOS. Follow-Up By: 09/21/21 Additional Comments Start monitoring TF tolerance and BM. <PRO STACK - Last Filed: 09/22/21 13:01> History Interval history: I saw and evaluated the patient. Discussed with the nurse practitioner and agree with their findings and plan as documented in this note. Hospitalist Physical - Constitutional Vitals: Temp Pulse Resp BP Pulse Ox 98.6 F 94 H 26 H 155/74 96 09/22/21 08:00 09/22/21 10:35 09/22/21 08:00 09/22/21 10:35 09/22/21 08:58 HEART Score - HEART Score Troponin: Troponin T < 0.010 ng/mL (0.00-0.029) 09/16/21 17:14 Results - Labs CBC & Chem 7: 09/21/21 04:00 09/22/21 00:49 Labs: Laboratory Last Values WBC 10.7 K/mm3 (4.5-11.0) 09/21/21 04:00 RBC 4.09 M/mm3 (3.65-5.03) 09/21/21 04:00 Hgb 13.6 gm/dl (11.8-15.2) 09/21/21 04:00 Hct 39.2 % (35.5-45.6) 09/21/21 04:00 MCV 96 fl (84-94) H 09/21/21 04:00 MCH 33 pg (28-32) H 09/21/21 04:00 MCHC 35 % (32-34) H 09/21/21 04:00 RDW 13.2 % (13.2-15.2) 09/21/21 04:00 Plt Count 140 K/mm3 (140-440) 09/21/21 04:00 Lymph % (Auto) 13.1 % (13.4-35.0) L 09/17/21 05:16 [place] % (Auto) 11.8 % (0.0-7.3) H 09/17/21 05:16 Eos % (Auto) 0.1 % (0.0-4.3) 09/17/21 05:16 Baso % (Auto) 0.1 % (0.0-1.8) 09/17/21 05:16 Lymph # (Auto) 0.7 K/mm3 (1.2-5.4) L 09/17/21 05:16 [place] # (Auto) 0.6 K/mm3 (0.0-0.8) 09/17/21 05:16 Eos # (Auto) 0.0 K/mm3 (0.0-0.4) 09/17/21 05:16 Baso # (Auto) 0.0 K/mm3 (0.0-0.1) 09/17/21 05:16 Seg Neutrophils % 74.9 % (40.0-70.0) H 09/17/21 05:16 Seg Neutrophils # 3.8 K/mm3 (1.8-7.7) 09/17/21 05:16 PT 16.1 Sec. (12.2-14.9) H 09/16/21 19:53 INR 1.16 (0.87-1.13) H 09/16/21 19:53 APTT 25.8 Sec. (24.2-36.6) 09/16/21 19:53 ABG pH 7.432 pH Units (7.350-7.450) 09/20/21 05:18 ABG pCO2 43.4 mm Hg 09/20/21 05:18 ABG pO2 88.4 mm Hg (80.0-90.0) 09/20/21 05:18 ABG HCO3 28.3 mmol/L (20.0-26.0) H 09/20/21 05:18 ABG O2 Saturation 97.2 % (95.0-99.0) 09/20/21 05:18 ABG O2 Content 13.5 (0.0-44) 09/20/21 05:18 ABG Base Excess 3.6 mmol/L (-2.0-3.0) H 09/20/21 05:18 ABG Hemoglobin 10.0 gm/dl (14.0-18.0) L 09/20/21 05:18 ABG Carboxyhemoglobin 1.7 % (0.0-5.0) 09/20/21 05:18 ABG Methemoglobin 0.5 % (0.0-1.5) 09/20/21 05:18 Oxyhemoglobin 95.1 % (95.0-99.0) 09/20/21 05:18 FiO2 30 % 09/20/21 05:18 Sodium 138 mmol/L (137-145) 09/22/21 00:49 Potassium 4.1 mmol/L (3.6-5.0) 09/22/21 00:49 Chloride 99.8 mmol/L (98-107) 09/22/21 00:49 Carbon Dioxide 24 mmol/L (22-30) 09/22/21 00:49 Anion Gap 18 mmol/L 09/22/21 00:49 BUN 9 mg/dL (9-20) 09/22/21 00:49 Creatinine 0.6 mg/dL (0.8-1.3) L 09/22/21 00:49 Estimated GFR > 60 ml/min 09/22/21 00:49 BUN/Creatinine Ratio 15 % 09/22/21 00:49 Glucose 112 mg/dL (75-100) H 09/22/21 00:49 POC Glucose 112 mg/dL (70-105) H 09/21/21 21:21 Lactic Acid 0.60 mmol/L (0.7-2.0) L 09/18/21 Unknown Calcium 8.7 mg/dL (8.4-10.2) 09/22/21 00:49 Phosphorus 3.30 mg/dL (2.5-4.5) D 09/19/21 21:33 Magnesium 1.70 mg/dL (1.7-2.3) 09/20/21 04:00 Total Bilirubin 0.80 mg/dL (0.1-1.2) 09/19/21 21:33 Direct Bilirubin 0.3 mg/dL (0-0.2) H 09/19/21 21:33 Indirect Bilirubin 0.5 mg/dL 09/19/21 21:33 AST 11 units/L (5-40) 09/19/21 21:33 ALT 10 units/L (7-56) 09/19/21 21:33 Alkaline Phosphatase 68 units/L (35-129) 09/19/21 21:33 Total Creatine Kinase 95 units/L (55-170) 09/17/21 09:18 Troponin T < 0.010 ng/mL (0.00-0.029) 09/16/21 17:14 NT-Pro-B Natriuret Pep 342.9 pg/mL (0-900) 09/16/21 17:14 Total Protein 5.9 g/dL (6.3-8.2) L 09/19/21 21:33 Albumin 3.0 g/dL (3.9-5) L 09/19/21 21:33 Albumin/Globulin Ratio 1.0 % 09/19/21 21:33 Urine Color (Yellow) 09/16/21 17:10 Urine Turbidity Cloudy (Clear) 09/16/21 17:10 Urine pH 5.0 (5.0-7.0) 09/16/21 17:10 Ur Specific [place] 1.023 (1.003-1.030) 09/16/21 17:10 Urine Protein 100 mg/dl mg/dL (Negative) 09/16/21 17:10 Urine Glucose (UA) Neg mg/dL (Negative) 09/16/21 17:10 Urine Ketones 80 mg/dL (Negative) 09/16/21 17:10 Urine Blood Sm (Negative) 09/16/21 17:10 Urine Nitrite Neg (Negative) 09/16/21 17:10 Urine Bilirubin Neg (Negative) 09/16/21 17:10 Urine Urobilinogen < 2.0 mg/dL (<2.0) 09/16/21 17:10 Ur Leukocyte Esterase Mod (Negative) 09/16/21 17:10 Urine WBC (Auto) 59.0 /HPF (0.0-6.0) H 09/16/21 17:10 Urine RBC (Auto) 8.0 /HPF (0.0-6.0) 09/16/21 17:10 U Epithel Cells (Auto) 1.0 /HPF (0-13.0) 09/16/21 17:10 Urine Bacteria (Auto) 2+ /HPF (Negative) 09/16/21 17:10 Hyaline Casts 152 /LPF 09/16/21 17:10 Urine Mucus 3+ /HPF 09/16/21 17:10 Urine Yeast (Budding) Not Reportable 09/16/21 17:10 Urine Opiates Screen Presumptive negative 09/16/21 17:13 Urine Methadone Screen Presumptive negative 09/16/21 17:13 Ur Barbiturates Screen Presumptive negative 09/16/21 17:13 Ur Phencyclidine Scrn Presumptive negative 09/16/21 17:13 Ur Amphetamines Screen Presumptive positive 09/16/21 17:13 U Benzodiazepines Scrn Presumptive negative 09/16/21 17:13 Urine Cocaine Screen Presumptive negative 09/16/21 17:13 U Marijuana (THC) Screen Presumptive negative 09/16/21 17:13 Drugs of Abuse Note Disclamer 09/16/21 17:13 Plasma/Serum Alcohol < 0.01 % (0-0.07) 09/16/21 18:17 Blood Type A POSITIVE 09/16/21 21:00 Antibody Screen Negative 09/16/21 21:00 Microbiology: Microbiology 09/16/21 17:14 Peripheral/Venous Blood Culture - Final NO GROWTH AFTER 5 DAYS [place]/IV: Voiding Method Condom Catheter Active Medications - Current Medications Current Medications: Generic Name Dose Route Start Last Admin Trade Name Freq PRN Reason Stop Dose Admin Acetaminophen 650 mg 09/16/21 23:25 09/21/21 20:24 Acetaminophen 325 Mg Tab PO 650 mg Q4H PRN Administration Pain MILD(1-3)/Fever >100.5/CAAL Albuterol 2.5 mg 09/16/21 23:25 Albuterol 2.5 Mg/3 Ml Nebu IH Q3HRT PRN Shortness Of Breath Aspirin 81 mg 09/22/21 10:00 09/22/21 10:13 Aspirin 81 Mg Tab Chew PO 81 mg QDAY DG Administration Carvedilol 12.5 mg 09/22/21 11:00 09/22/21 10:17 Carvedilol 12.5 Mg Tab PO 12.5 mg BID DG Administration Dextrose 50 ml 09/20/21 13:14 Dextrose 50% In Water (25gm) 50 Ml Syringe IV Q30MIN PRN Hypoglycemia Protocol Famotidine 20 mg 09/22/21 10:00 09/22/21 10:10 Famotidine 20 Mg Tab PO 20 mg BID DG Administration Folic Acid 1 mg 09/22/21 10:00 09/22/21 10:15 Folic Acid 1 Mg Tab PO 1 mg QDAY DG Administration Hydralazine HCl 10 mg 09/16/21 23:42 09/20/21 17:37 Hydralazine 20 Mg/1 Ml Inj IV 10 mg Q6H PRN Administration Blood Pressure Levofloxacin/Dextrose 750 mg in 150 mls @ 100 mls/hr 09/18/21 15:00 09/21/21 15:55 Levaquin 750mg/150ml IV 09/22/21 16:29 100 mls/hr Q24H DG Administration Protocol Dexmedetomidine HCl 400 mcg/ 104 mls @ 3.24 mls/hr 09/19/21 23:45 09/21/21 09:45 Sodium Chloride IV 0 mcg/kg/hr TITRATE DG 0 mls/hr Titration Protocol 0.2 MCG/KG/HR Levetiracetam 1,500 mg 09/22/21 10:00 09/22/21 10:13 Levetiracetam 500 Mg/5 Ml Oral Liqd PO 1,500 mg BID DG Administration Lorazepam 2 mg 09/19/21 20:28 09/21/21 22:40 Lorazepam 2 Mg/Ml Vial IV 2 mg Q1H PRN Administration CIWA-Ar 8-15 Lorazepam 4 mg 09/19/21 20:28 09/21/21 14:33 Lorazepam 2 Mg/Ml Vial IV 4 mg Q1H PRN Administration CIWA-Ar 16-25 Lorazepam 4 mg 09/19/21 20:28 09/19/21 20:56 Lorazepam 2 Mg/Ml Vial IV 4 mg Q15MIN PRN Administration CIWA-Ar >25 Losartan Potassium 25 mg 09/22/21 10:00 09/22/21 10:09 Losartan 25 Mg Tab PO 25 mg QDAY DG Administration Ondansetron HCl 4 mg 09/16/21 23:25 Ondansetron 4 Mg/2 Ml Inj IV Q8H PRN Nausea And Vomiting Phenytoin 100 mg 09/22/21 14:00 Phenytoin 100 Mg/4 Ml Oral.Liqd PO Q8HR DG Quetiapine Fumarate 50 mg 09/21/21 10:00 09/22/21 10:08 Quetiapine 25 Mg Tab PO 50 mg BID DG Administration Senna/Docusate Sodium 1 tab 09/22/21 22:00 Sennosides/Docusate Sodium 8.6/50 Mg Tab PO QHS DG Sodium Chloride 10 ml 09/17/21 10:00 09/22/21 10:10 Sodium Chloride 0.9% 10 Ml Flush Syringe IV 10 ml BID DG Administration Sodium Chloride 10 ml 09/16/21 23:25 Sodium Chloride 0.9% 10 Ml Flush Syringe IV PRN PRN LINE FLUSH Thiamine HCl 100 mg 09/22/21 10:00 09/22/21 10:14 Thiamine 100 Mg Tab PO 100 mg QDAY DG Administration Nutrition/Malnutrition Assess - Dietary Evaluation Nutrition/Malnutrition Findings: Nutrition Notes Start: 09/17/21 11:59 Freq: Status: Active Protocol: Document 09/21/21 14:37 SHERLEY (Rec: 09/21/21 14:47 SEHRLEY [id number]) Nutrition Notes Initial or Follow up Reassessment Other Pertinent Diagnosis Seizure D/O, Hyperthermia, EtOH dependence, legally blind Current Diet TF - Vital AF 1.2 at 60ml/hr Labs/Tests Na 132 Pertinent Medications Dilantin q8h Height 6 ft 2 in Weight 62.3 kg Reynolds Body Weight (kg) 86.36 BMI 17.6 Weight Status Underweight Subjective/Other Information Pt extubated yesterday; passed bedside swallow evaluation. [employer] evaluation ordered this am . No TF infusing at time of visit today. Burn Absent Trauma Absent #2 Nutrition Diagnosis Underweight Diagnosis Progress(for reassessment Continues documentation) #1 Nutrition Diagnosis Inadequate oral intake Diagnosis Progress(for reassessment Continues documentation) Is patient on ventilator? No Is Patient Ambulatory and/or Out of Bed No REE-([facility]-confined to bed) [phone] Kcal/Kg value to use for calculation 35 Approximate Energy Requirements Using 2181 kcal/Kg Calculation Used for Recommendations Kcal/kg Additional Notes Pro needs 1.2-2g/k-125g/ day Fluid needs 1ml/kcal Nutrition Intervention Nutrition Support: Continue Vital AF 1.2 if unable to advance diet. Adjust rate for dilantin administration if dilantin administered via PEG tube. Goal #1 Resume EN support if unable to advance diet Follow-Up By: 09/23/21 Additional Comments F/U: [employer] evaluation, diet advancement vs TF restart ( adjust rate for dilantin administration)
[2021-09-21] MEDS: THIAMINE 100 MG TAB FEEDTUBE SCH (09:35)
[2021-09-21] MEDS: ASPIRIN 81 MG TAB CHEW FEEDTUBE SCH (09:35)
[2021-09-21] MEDS: MULTIVITAMIN / MINERAL ORAL LIQUID 15 ML FEEDTUBE SCH (09:35)
[2021-09-21] MEDS: levETIRAcetam 500 MG/5 ML ORAL LIQD FEEDTUBE SCH ×2 (09:35→21:02)
[2021-09-21] MEDS: FOLIC ACID 1 MG TAB FEEDTUBE SCH (09:36)
[2021-09-21] MEDS: LOSARTAN 25 MG TAB FEEDTUBE SCH (09:36)
[2021-09-21] MEDS: FAMOTIDINE 20 MG TAB FEEDTUBE SCH ×2 (09:36→21:02)
[2021-09-21] MEDS: carvediloL 6.25 MG TAB FEEDTUBE SCH ×2 (09:36→21:02)
[2021-09-21] MEDS: QUEtiapine 25 MG TAB PO SCH ×2 (09:36→21:01)
--- NOTE | 2021-09-21 10:16 | Progress Note ---
Assessment and Plan Patient is a 66-year-old homeless male with past medical history of of asthma, alcoholism, pancreatitis, legally blind, and seizures who was brought to the ED due to altered mental status yesterday AMS-neurology follow Acute respiratory failure-pulmonology following SVT versus a flutter Seizures Malignant hyperthermia History of alcoholism History of asthma Cardiomyopathy Positive for amphetamines Echo 12/15/2020-EF 30 to 35%. Left ventricle is mildly dilated. Severe hypokinesis is noted on the whole apex with a relative hyperdynamic base for suggestive of stress cardiomyopathy. Left atrium is mildly dilated. Right ventricular systolic function is normal. Ascending aorta mildly dilated Echo 09/16/2021-EF 35 to 40%. Right ventricle systolic function is normal. Right ventricle is mildly dilated. Aortic valve is normal in structure no aortic regurgitation. Trace mitral regurgitation. Trace tricuspid regurgitation Plan: Telemetry reviewed patient currently in sinus rhythm Suspect SVT as a result of amphetamines, electrolyte abnormality, and malignant hyperthermia Telemetry reviewed patient currently in sinus rhythm Continue carvedilol 6.25 mg p.o. twice daily, aspirin ,and losartan 25 mg p.o. daily We will plan for outpatient ischemic eval due to patient's current mental status Patient currently on CIWA protocol. Management per primary Cardiac status appears otherwise stable Patient seen in conjunction with Dr. Potter who agrees with plan of care - Patient Problems (1) ETOH abuse Current Visit: No Status: Acute (2) Hyponatremia Current Visit: No Status: Acute (3) Seizures Current Visit: Yes Status: Acute (4) Alcohol abuse Current Visit: No Status: Chronic (5) Malignant hyperthermia Current Visit: Yes Status: Acute (6) Acute respiratory failure Current Visit: Yes Status: Acute (7) SVT (supraventricular tachycardia) Current Visit: Yes Status: Acute (8) Hypokalemia Current Visit: No Status: Acute (9) Lactic acidosis Current Visit: Yes Status: Acute Subjective Date of service: 09/21/21 Principal diagnosis: pSVT Interval history: Patientresting in bed in no acute distress with altered mental status Sinus 90s on monitor with no events Objective Vital Signs Temp Pulse Pulse Resp BP Pulse Ox 09/21/21 09:01 91 H 31 H 140/78 09/21/21 08:30 82 25 H 140/78 09/21/21 08:00 97.6 F 78 77 20 138/73 100 09/21/21 07:30 82 20 135/87 100 09/21/21 07:00 79 22 112/62 99 09/21/21 06:30 81 20 113/71 100 09/21/21 06:00 86 20 128/80 100 09/21/21 05:30 91 H 24 141/82 100 09/21/21 05:00 85 25 H 126/73 100 09/21/21 04:30 89 28 H 135/73 100 09/21/21 04:00 91 H 91 H 29 H 144/92 99 09/21/21 03:58 98.2 F 09/21/21 03:31 89 17 147/84 100 09/21/21 03:01 86 27 H 143/83 100 09/21/21 02:30 87 22 132/86 100 09/21/21 02:00 86 22 121/68 100 09/21/21 01:30 93 H 28 H 113/75 99 09/21/21 01:01 89 24 102/59 97 09/21/21 00:30 87 24 73/40 95 09/21/21 00:00 101 H 78 35 H 125/77 97 09/20/21 23:51 93 H 25 H 125/77 97 09/20/21 23:30 98 H 25 H 125/77 99 09/20/21 23:23 96 09/20/21 23:18 101.1 F H 09/20/21 23:01 103 H 22 116/67 97 09/20/21 22:30 111 H 28 H 137/81 96 09/20/21 22:00 119 H 26 H 158/87 98 09/20/21 21:59 120 H 151/100 09/20/21 21:30 121 H 35 H 151/100 97 09/20/21 21:00 118 H 32 H 159/91 98 09/20/21 20:30 117 H 31 H 163/91 98 09/20/21 20:01 118 H 28 H 164/80 98 09/20/21 20:00 98.4 F 117 H 31 H 98 09/20/21 19:30 115 H 29 H 163/97 98 09/20/21 19:00 114 H 33 H 165/106 98 09/20/21 18:30 107 H 27 H 149/84 98 09/20/21 18:00 100 H 22 152/88 99 09/20/21 17:30 90 24 175/91 99 09/20/21 17:01 95 H 24 164/96 100 09/20/21 16:31 83 27 H 147/78 98 09/20/21 16:00 98.8 F 77 106 H 21 148/82 100 09/20/21 15:31 79 21 160/88 09/20/21 15:00 79 20 153/89 99 09/20/21 14:30 80 23 155/82 100 09/20/21 14:00 79 22 154/85 100 09/20/21 13:31 78 18 140/77 94 09/20/21 13:01 81 23 137/79 100 09/20/21 12:30 73 20 139/76 100 09/20/21 12:15 99 09/20/21 12:01 71 18 137/79 99 09/20/21 12:00 106 H 23 99 09/20/21 11:52 98.7 F 09/20/21 11:30 69 16 113/70 100 09/20/21 11:00 69 16 102/60 98 09/20/21 10:31 73 15 116/66 98 - Physical Examination General: No Apparent Distress, Other (Altered mental status) HEENT: Positive: Normocephaly Neck: Positive: trachea midline. Negative: JVD/HJR Cardiac: Positive: Reg Rate and Rhythm Lungs: Positive: Decreased Breath Sounds Neuro: Positive: Other Abdomen: Positive: Soft Skin: Negative: Rash Extremities: Present: upper extr. pulses. Absent: edema - Labs and Meds CBC 09/21/21 Range/Units 04:00 WBC 10.7 (4.5-11.0) K/mm3 RBC 4.09 (3.65-5.03) M/mm3 Hgb 13.6 (11.8-15.2) gm/dl Hct 39.2 (35.5-45.6) % Plt Count 140 (140-440) K/mm3 Comprehensive Metabolic Panel 09/21/21 Range/Units 04:00 Sodium 132 L (137-145) mmol/L Potassium 3.9 (3.6-5.0) mmol/L Chloride 95.8 L (98-107) mmol/L Carbon Dioxide 28 (22-30) mmol/L BUN 9 (9-20) mg/dL Creatinine 0.6 L (0.8-1.3) mg/dL Glucose 107 H (75-100) mg/dL Calcium 8.8 (8.4-10.2) mg/dL - Imaging and Cardiology EKG: report reviewed, image reviewed Echo: report reviewed - Telemetry EKG Rhythm: Sinus Rhythm - EKG Sinus rhythms and dysrhythmias: sinus rhythm - Allied health notes Allied health notes reviewed: nursing
[2021-09-21] MEDS: ACETAMINOPHEN 325 MG TAB PO PRN (20:24)
[2021-09-21] MEDS: SENNOSIDES/DOCUSATE SODIUM 8.6/50 MG TAB FEEDTUBE SCH (21:01)
[2021-09-22 02:20] LABS: Blood Urea Nitrogen 9 mg/dL (9-20); Calcium 8.7 mg/dL (8.4-10.2); Hemolysis Index 32
[2021-09-22 02:24] LABS: BUN/Creatinine Ratio 15
[2021-09-22] MEDS: PHENYTOIN 100 MG/4 ML ORAL.LIQD FEEDTUBE SCH (05:27)
--- NOTE | 2021-09-22 08:41 | Progress Note ---
<JORY BE - Last Filed: 09/22/21 16:16> Assessment and Plan - Patient Problems (1) Acute respiratory failure Current Visit: Yes Status: Acute Plan to address problem: Has resolved-patient on room air at the time of assessment. -Intubated on 09/16 with 7.50 ETT at 24 the lips for airway protection in the ED Continue to monitor 02 sat. (2) Acute hyponatremia Current Visit: No Status: Acute Plan to address problem: likely 2/2 to dehydration/alcohol use Monitor sodium level Monitor kidney function Avoid nephrotoxic drugs (3) Alcohol dependence Current Visit: No Status: Acute Plan to address problem: Will discuss alcohol use cessation when patient is mentally stable Safety and fall precaution Continue CIWA protocol (4) Seizures Current Visit: Yes Status: Acute Plan to address problem: Amphetamine use, malignant hyperthermia, seizures, h/o EtOH use, legally blind, seizure disorder Presented with temperature of 107.3 F on admission. Neurology consulted, appreciate recommendations [facility]-continue Precedex gtt Seizure precautions CT head with no acute intracranial abnormality MRI brain pending Neurology recommends to continue Keppra 500 mg twice daily, Dilantin 100 mg 3 times daily UDS positive for amphetamines Neurology recommends follow-up with neurology within 2 weeks with seizure restrictions and placed into care of a neurologist Bilateral wrist restraints in place for safety EEG completed, pending read Continue Thiamine, folic acid (5) Full code status Current Visit: Yes Status: Acute Plan to address problem: Patient is full code History Interval history: patient seen at bedside. he has bilateral arm restraint. came with seizure disorder likely 2/2 alcohol abuse. i reviewed lab, mar, and v/s. i discussed plan of care with dr hassan-only tramadol for pain-seraquel is ordered. patient mildly lethargic, opens eyes and responds to questions appropriately. Patient still agitated-continue sedation with Precedex. Will transfer patient to the floor when stable. 09/22/21-patient condition is stable. Precedex has been discontinued. Seroquel started. Patient is stable for transfer to the floor. Transfer patient to the floor when room is available. The high probability of a clinically significant, sudden or life threatening deterioration of the [multi] system(s) required my full and direct attention, intervention and personal management. The aggregate critical care time was [60] minutes. This time is in addition to time spent performing reported procedures but includes the following: [x] Data Review and interpretation [x] Patient assessment and monitoring of vital signs [x] Documentation [x] Medication orders and management Disposition Plan: icu Total Time Spent with Patient (Minutes): 60 Hospitalist Physical - Constitutional Vitals: Temp Pulse Resp BP Pulse Ox 98.6 F 96 H 26 H 125/84 96 09/22/21 08:00 09/22/21 08:00 09/22/21 08:00 09/22/21 08:00 09/22/21 08:00 General appearance: Present: no acute distress, other (bilateral arm restraint for safety) HEART Score - HEART Score Troponin: Troponin T < 0.010 ng/mL (0.00-0.029) 09/16/21 17:14 Results - Labs CBC & Chem 7: 09/21/21 04:00 09/22/21 00:49 Labs: Laboratory Last Values WBC 10.7 K/mm3 (4.5-11.0) 09/21/21 04:00 RBC 4.09 M/mm3 (3.65-5.03) 09/21/21 04:00 Hgb 13.6 gm/dl (11.8-15.2) 09/21/21 04:00 Hct 39.2 % (35.5-45.6) 09/21/21 04:00 MCV 96 fl (84-94) H 09/21/21 04:00 MCH 33 pg (28-32) H 09/21/21 04:00 MCHC 35 % (32-34) H 09/21/21 04:00 RDW 13.2 % (13.2-15.2) 09/21/21 04:00 Plt Count 140 K/mm3 (140-440) 09/21/21 04:00 Lymph % (Auto) 13.1 % (13.4-35.0) L 09/17/21 05:16 Motley % (Auto) 11.8 % (0.0-7.3) H 09/17/21 05:16 Eos % (Auto) 0.1 % (0.0-4.3) 09/17/21 05:16 Baso % (Auto) 0.1 % (0.0-1.8) 09/17/21 05:16 Lymph # (Auto) 0.7 K/mm3 (1.2-5.4) L 09/17/21 05:16 Motley # (Auto) 0.6 K/mm3 (0.0-0.8) 09/17/21 05:16 Eos # (Auto) 0.0 K/mm3 (0.0-0.4) 09/17/21 05:16 Baso # (Auto) 0.0 K/mm3 (0.0-0.1) 09/17/21 05:16 Seg Neutrophils % 74.9 % (40.0-70.0) H 09/17/21 05:16 Seg Neutrophils # 3.8 K/mm3 (1.8-7.7) 09/17/21 05:16 PT 16.1 Sec. (12.2-14.9) H 09/16/21 19:53 INR 1.16 (0.87-1.13) H 09/16/21 19:53 APTT 25.8 Sec. (24.2-36.6) 09/16/21 19:53 ABG pH 7.432 pH Units (7.350-7.450) 09/20/21 05:18 ABG pCO2 43.4 mm Hg 09/20/21 05:18 ABG pO2 88.4 mm Hg (80.0-90.0) 09/20/21 05:18 ABG HCO3 28.3 mmol/L (20.0-26.0) H 09/20/21 05:18 ABG O2 Saturation 97.2 % (95.0-99.0) 09/20/21 05:18 ABG O2 Content 13.5 (0.0-44) 09/20/21 05:18 ABG Base Excess 3.6 mmol/L (-2.0-3.0) H 09/20/21 05:18 ABG Hemoglobin 10.0 gm/dl (14.0-18.0) L 09/20/21 05:18 ABG Carboxyhemoglobin 1.7 % (0.0-5.0) 09/20/21 05:18 ABG Methemoglobin 0.5 % (0.0-1.5) 09/20/21 05:18 Oxyhemoglobin 95.1 % (95.0-99.0) 09/20/21 05:18 FiO2 30 % 09/20/21 05:18 Sodium 138 mmol/L (137-145) 09/22/21 00:49 Potassium 4.1 mmol/L (3.6-5.0) 09/22/21 00:49 Chloride 99.8 mmol/L (98-107) 09/22/21 00:49 Carbon Dioxide 24 mmol/L (22-30) 09/22/21 00:49 Anion Gap 18 mmol/L 09/22/21 00:49 BUN 9 mg/dL (9-20) 09/22/21 00:49 Creatinine 0.6 mg/dL (0.8-1.3) L 09/22/21 00:49 Estimated GFR > 60 ml/min 09/22/21 00:49 BUN/Creatinine Ratio 15 % 09/22/21 00:49 Glucose 112 mg/dL (75-100) H 09/22/21 00:49 POC Glucose 112 mg/dL (70-105) H 09/21/21 21:21 Lactic Acid 0.60 mmol/L (0.7-2.0) L 09/18/21 Unknown Calcium 8.7 mg/dL (8.4-10.2) 09/22/21 00:49 Phosphorus 3.30 mg/dL (2.5-4.5) D 09/19/21 21:33 Magnesium 1.70 mg/dL (1.7-2.3) 09/20/21 04:00 Total Bilirubin 0.80 mg/dL (0.1-1.2) 09/19/21 21:33 Direct Bilirubin 0.3 mg/dL (0-0.2) H 09/19/21 21:33 Indirect Bilirubin 0.5 mg/dL 09/19/21 21:33 AST 11 units/L (5-40) 09/19/21 21:33 ALT 10 units/L (7-56) 09/19/21 21:33 Alkaline Phosphatase 68 units/L (35-129) 09/19/21 21:33 Total Creatine Kinase 95 units/L (55-170) 09/17/21 09:18 Troponin T < 0.010 ng/mL (0.00-0.029) 09/16/21 17:14 NT-Pro-B Natriuret Pep 342.9 pg/mL (0-900) 09/16/21 17:14 Total Protein 5.9 g/dL (6.3-8.2) L 09/19/21 21:33 Albumin 3.0 g/dL (3.9-5) L 09/19/21 21:33 Albumin/Globulin Ratio 1.0 % 09/19/21 21:33 Urine Color (Yellow) 09/16/21 17:10 Urine Turbidity Cloudy (Clear) 09/16/21 17:10 Urine pH 5.0 (5.0-7.0) 09/16/21 17:10 Ur Specific Triplett 1.023 (1.003-1.030) 09/16/21 17:10 Urine Protein 100 mg/dl mg/dL (Negative) 09/16/21 17:10 Urine Glucose (UA) Neg mg/dL (Negative) 09/16/21 17:10 Urine Ketones 80 mg/dL (Negative) 09/16/21 17:10 Urine Blood Sm (Negative) 09/16/21 17:10 Urine Nitrite Neg (Negative) 09/16/21 17:10 Urine Bilirubin Neg (Negative) 09/16/21 17:10 Urine Urobilinogen < 2.0 mg/dL (<2.0) 09/16/21 17:10 Ur Leukocyte Esterase Mod (Negative) 09/16/21 17:10 Urine WBC (Auto) 59.0 /HPF (0.0-6.0) H 09/16/21 17:10 Urine RBC (Auto) 8.0 /HPF (0.0-6.0) 09/16/21 17:10 U Epithel Cells (Auto) 1.0 /HPF (0-13.0) 09/16/21 17:10 Urine Bacteria (Auto) 2+ /HPF (Negative) 09/16/21 17:10 Hyaline Casts 152 /LPF 09/16/21 17:10 Urine Mucus 3+ /HPF 09/16/21 17:10 Urine Yeast (Budding) Not Reportable 09/16/21 17:10 Urine Opiates Screen Presumptive negative 09/16/21 17:13 Urine Methadone Screen Presumptive negative 09/16/21 17:13 Ur Barbiturates Screen Presumptive negative 09/16/21 17:13 Ur Phencyclidine Scrn Presumptive negative 09/16/21 17:13 Ur Amphetamines Screen Presumptive positive 09/16/21 17:13 U Benzodiazepines Scrn Presumptive negative 09/16/21 17:13 Urine Cocaine Screen Presumptive negative 09/16/21 17:13 U Marijuana (THC) Screen Presumptive negative 09/16/21 17:13 Drugs of Abuse Note Disclamer 09/16/21 17:13 Plasma/Serum Alcohol < 0.01 % (0-0.07) 09/16/21 18:17 Blood Type A POSITIVE 09/16/21 21:00 Antibody Screen Negative 09/16/21 21:00 Microbiology: Microbiology 09/16/21 17:14 Peripheral/Venous Blood Culture - Final NO GROWTH AFTER 5 DAYS Bahena/IV: Voiding Method Condom Catheter Active Medications - Current Medications Current Medications: Generic Name Dose Route Start Last Admin Trade Name Freq PRN Reason Stop Dose Admin Acetaminophen 650 mg 09/16/21 23:25 09/21/21 20:24 Acetaminophen 325 Mg Tab PO 650 mg Q4H PRN Administration Pain MILD(1-3)/Fever >100.5/CAAL Albuterol 2.5 mg 09/16/21 23:25 Albuterol 2.5 Mg/3 Ml Nebu IH Q3HRT PRN Shortness Of Breath Aspirin 81 mg 09/22/21 10:00 Aspirin 81 Mg Tab Chew PO QDAY DG Carvedilol 6.25 mg 09/22/21 10:00 Carvedilol 6.25 Mg Tab PO BID DG Dextrose 50 ml 09/20/21 13:14 Dextrose 50% In Water (25gm) 50 Ml Syringe IV Q30MIN PRN Hypoglycemia Protocol Famotidine 20 mg 09/22/21 10:00 Famotidine 20 Mg Tab PO BID DG Folic Acid 1 mg 09/22/21 10:00 Folic Acid 1 Mg Tab PO QDAY DG Hydralazine HCl 10 mg 09/16/21 23:42 09/20/21 17:37 Hydralazine 20 Mg/1 Ml Inj IV 10 mg Q6H PRN Administration Blood Pressure Levofloxacin/Dextrose 750 mg in 150 mls @ 100 mls/hr 09/18/21 15:00 09/21/21 15:55 Levaquin 750mg/150ml IV 09/22/21 16:29 100 mls/hr Q24H DG Administration Protocol Dexmedetomidine HCl 400 mcg/ 104 mls @ 3.24 mls/hr 09/19/21 23:45 09/21/21 09:45 Sodium Chloride IV 0 mcg/kg/hr TITRATE DG 0 mls/hr Titration Protocol 0.2 MCG/KG/HR Levetiracetam 1,500 mg 09/22/21 10:00 Levetiracetam 500 Mg/5 Ml Oral Liqd PO BID DG Lorazepam 2 mg 09/19/21 20:28 09/21/21 22:40 Lorazepam 2 Mg/Ml Vial IV 2 mg Q1H PRN Administration CIWA-Ar 8-15 Lorazepam 4 mg 09/19/21 20:28 09/21/21 14:33 Lorazepam 2 Mg/Ml Vial IV 4 mg Q1H PRN Administration CIWA-Ar 16-25 Lorazepam 4 mg 09/19/21 20:28 09/19/21 20:56 Lorazepam 2 Mg/Ml Vial IV 4 mg Q15MIN PRN Administration CIWA-Ar >25 Losartan Potassium 25 mg 09/22/21 10:00 Losartan 25 Mg Tab PO QDAY DG Ondansetron HCl 4 mg 09/16/21 23:25 Ondansetron 4 Mg/2 Ml Inj IV Q8H PRN Nausea And Vomiting Phenytoin 100 mg 09/22/21 14:00 Phenytoin 100 Mg/4 Ml Oral.Liqd PO Q8HR DG Quetiapine Fumarate 50 mg 09/21/21 10:00 09/21/21 21:01 Quetiapine 25 Mg Tab PO 50 mg BID DG Administration Senna/Docusate Sodium 1 tab 09/22/21 22:00 Sennosides/Docusate Sodium 8.6/50 Mg Tab PO QHS DG Sodium Chloride 10 ml 09/17/21 10:00 09/21/21 21:03 Sodium Chloride 0.9% 10 Ml Flush Syringe IV 10 ml BID DG Administration Sodium Chloride 10 ml 09/16/21 23:25 Sodium Chloride 0.9% 10 Ml Flush Syringe IV PRN PRN LINE FLUSH Thiamine HCl 100 mg 09/22/21 10:00 Thiamine 100 Mg Tab PO QDAY DG Nutrition/Malnutrition Assess - Dietary Evaluation Nutrition/Malnutrition Findings: Nutrition Notes Start: 09/17/21 11:59 Freq: Status: Active Protocol: Document 09/21/21 14:37 NHALL (Rec: 09/21/21 14:47 NHALL [id number]) Nutrition Notes Initial or Follow up Reassessment Other Pertinent Diagnosis Seizure D/O, Hyperthermia, EtOH dependence, legally blind Current Diet TF - Vital AF 1.2 at 60ml/hr Labs/Tests Na 132 Pertinent Medications Dilantin q8h Height 6 ft 2 in Weight 62.3 kg Leona Body Weight (kg) 86.36 BMI 17.6 Weight Status Underweight Subjective/Other Information Pt extubated yesterday; passed bedside swallow evaluation. MOLECULAR MODELER evaluation ordered this am . No TF infusing at time of visit today. Burn Absent Trauma Absent #2 Nutrition Diagnosis Underweight Diagnosis Progress(for reassessment Continues documentation) #1 Nutrition Diagnosis Inadequate oral intake Diagnosis Progress(for reassessment Continues documentation) Is patient on ventilator? No Is Patient Ambulatory and/or Out of Bed No REE-([facility]-confined to bed) 1778.796 Kcal/Kg value to use for calculation 35 Approximate Energy Requirements Using 2181 kcal/Kg Calculation Used for Recommendations Kcal/kg Additional Notes Pro needs 1.2-2g/k-125g/ day Fluid needs 1ml/kcal Nutrition Intervention Nutrition Support: Continue Vital AF 1.2 if unable to advance diet. Adjust rate for dilantin administration if dilantin administered via PEG tube. Goal #1 Resume EN support if unable to advance diet Follow-Up By: 09/23/21 Additional Comments F/U: MOLECULAR MODELER evaluation, diet advancement vs TF restart ( adjust rate for dilantin administration) <LUIS BAEZ - Last Filed: 09/23/21 07:27> Assessment and Plan Assessment and plan: I saw and evaluated the patient. I agree with the findings and the plan of care as documented in the Nurse Practitioner's~note, with the following corrections a nd additions. Hospitalist Physical - Constitutional Vitals: Temp Pulse Resp BP Pulse Ox 98.2 F 81 20 158/83 100 09/22/21 23:16 09/23/21 04:45 09/22/21 23:16 09/22/21 23:16 09/23/21 00:00 HEART Score - HEART Score Troponin: Troponin T < 0.010 ng/mL (0.00-0.029) 09/16/21 17:14 Results - Labs CBC & Chem 7: 09/23/21 00:18 09/23/21 00:18 Labs: Laboratory Last Values WBC 5.3 K/mm3 (4.5-11.0) 09/23/21 00:18 RBC 4.05 M/mm3 (3.65-5.03) 09/23/21 00:18 Hgb 13.6 gm/dl (11.8-15.2) 09/23/21 00:18 Hct 38.6 % (35.5-45.6) 09/23/21 00:18 MCV 95 fl (84-94) H 09/23/21 00:18 MCH 34 pg (28-32) H 09/23/21 00:18 MCHC 35 % (32-34) H 09/23/21 00:18 RDW 13.5 % (13.2-15.2) 09/23/21 00:18 Plt Count 214 K/mm3 (140-440) 09/23/21 00:18 Lymph % (Auto) 20.7 % (13.4-35.0) 09/23/21 00:18 Motley % (Auto) 15.6 % (0.0-7.3) H 09/23/21 00:18 Eos % (Auto) 2.0 % (0.0-4.3) 09/23/21 00:18 Baso % (Auto) 1.3 % (0.0-1.8) 09/23/21 00:18 Lymph # (Auto) 1.1 K/mm3 (1.2-5.4) L 09/23/21 00:18 Motley # (Auto) 0.8 K/mm3 (0.0-0.8) 09/23/21 00:18 Eos # (Auto) 0.1 K/mm3 (0.0-0.4) 09/23/21 00:18 Baso # (Auto) 0.1 K/mm3 (0.0-0.1) 09/23/21 00:18 Seg Neutrophils % 60.4 % (40.0-70.0) 09/23/21 00:18 Seg Neutrophils # 3.2 K/mm3 (1.8-7.7) 09/23/21 00:18 PT 16.1 Sec. (12.2-14.9) H 09/16/21 19:53 INR 1.16 (0.87-1.13) H 09/16/21 19:53 APTT 25.8 Sec. (24.2-36.6) 09/16/21 19:53 ABG pH 7.432 pH Units (7.350-7.450) 09/20/21 05:18 ABG pCO2 43.4 mm Hg 09/20/21 05:18 ABG pO2 88.4 mm Hg (80.0-90.0) 09/20/21 05:18 ABG HCO3 28.3 mmol/L (20.0-26.0) H 09/20/21 05:18 ABG O2 Saturation 97.2 % (95.0-99.0) 09/20/21 05:18 ABG O2 Content 13.5 (0.0-44) 09/20/21 05:18 ABG Base Excess 3.6 mmol/L (-2.0-3.0) H 09/20/21 05:18 ABG Hemoglobin 10.0 gm/dl (14.0-18.0) L 09/20/21 05:18 ABG Carboxyhemoglobin 1.7 % (0.0-5.0) 09/20/21 05:18 ABG Methemoglobin 0.5 % (0.0-1.5) 09/20/21 05:18 Oxyhemoglobin 95.1 % (95.0-99.0) 09/20/21 05:18 FiO2 30 % 09/20/21 05:18 Sodium 139 mmol/L (137-145) 09/23/21 00:18 Potassium 4.2 mmol/L (3.6-5.0) 09/23/21 00:18 Chloride 101.7 mmol/L (98-107) 09/23/21 00:18 Carbon Dioxide 28 mmol/L (22-30) 09/23/21 00:18 Anion Gap 14 mmol/L 09/23/21 00:18 BUN 7 mg/dL (9-20) L 09/23/21 00:18 Creatinine 0.8 mg/dL (0.8-1.3) 09/23/21 00:18 Estimated GFR > 60 ml/min 09/23/21 00:18 BUN/Creatinine Ratio 9 % 09/23/21 00:18 Glucose 112 mg/dL (75-100) H 09/23/21 00:18 POC Glucose 112 mg/dL (70-105) H 09/21/21 21:21 Lactic Acid 0.60 mmol/L (0.7-2.0) L 09/18/21 Unknown Calcium 9.2 mg/dL (8.4-10.2) 09/23/21 00:18 Phosphorus 3.30 mg/dL (2.5-4.5) D 09/19/21 21:33 Magnesium 1.70 mg/dL (1.7-2.3) 09/20/21 04:00 Total Bilirubin 0.80 mg/dL (0.1-1.2) 09/19/21 21:33 Direct Bilirubin 0.3 mg/dL (0-0.2) H 09/19/21 21:33 Indirect Bilirubin 0.5 mg/dL 09/19/21 21:33 AST 11 units/L (5-40) 09/19/21 21:33 ALT 10 units/L (7-56) 09/19/21 21:33 Alkaline Phosphatase 68 units/L (35-129) 09/19/21 21:33 Total Creatine Kinase 95 units/L (55-170) 09/17/21 09:18 Troponin T < 0.010 ng/mL (0.00-0.029) 09/16/21 17:14 NT-Pro-B Natriuret Pep 342.9 pg/mL (0-900) 09/16/21 17:14 Total Protein 5.9 g/dL (6.3-8.2) L 09/19/21 21:33 Albumin 3.0 g/dL (3.9-5) L 09/19/21 21:33 Albumin/Globulin Ratio 1.0 % 09/19/21 21:33 Urine Color (Yellow) 09/16/21 17:10 Urine Turbidity Cloudy (Clear) 09/16/21 17:10 Urine pH 5.0 (5.0-7.0) 09/16/21 17:10 Ur Specific Triplett 1.023 (1.003-1.030) 09/16/21 17:10 Urine Protein 100 mg/dl mg/dL (Negative) 09/16/21 17:10 Urine Glucose (UA) Neg mg/dL (Negative) 09/16/21 17:10 Urine Ketones 80 mg/dL (Negative) 09/16/21 17:10 Urine Blood Sm (Negative) 09/16/21 17:10 Urine Nitrite Neg (Negative) 09/16/21 17:10 Urine Bilirubin Neg (Negative) 09/16/21 17:10 Urine Urobilinogen < 2.0 mg/dL (<2.0) 09/16/21 17:10 Ur Leukocyte Esterase Mod (Negative) 09/16/21 17:10 Urine WBC (Auto) 59.0 /HPF (0.0-6.0) H 09/16/21 17:10 Urine RBC (Auto) 8.0 /HPF (0.0-6.0) 09/16/21 17:10 U Epithel Cells (Auto) 1.0 /HPF (0-13.0) 09/16/21 17:10 Urine Bacteria (Auto) 2+ /HPF (Negative) 09/16/21 17:10 Hyaline Casts 152 /LPF 09/16/21 17:10 Urine Mucus 3+ /HPF 09/16/21 17:10 Urine Yeast (Budding) Not Reportable 09/16/21 17:10 Urine Opiates Screen Presumptive negative 09/16/21 17:13 Urine Methadone Screen Presumptive negative 09/16/21 17:13 Ur Barbiturates Screen Presumptive negative 09/16/21 17:13 Ur Phencyclidine Scrn Presumptive negative 09/16/21 17:13 Ur Amphetamines Screen Presumptive positive 09/16/21 17:13 U Benzodiazepines Scrn Presumptive negative 09/16/21 17:13 Urine Cocaine Screen Presumptive negative 09/16/21 17:13 U Marijuana (THC) Screen Presumptive negative 09/16/21 17:13 Drugs of Abuse Note Disclamer 09/16/21 17:13 Plasma/Serum Alcohol < 0.01 % (0-0.07) 09/16/21 18:17 Blood Type A POSITIVE 09/16/21 21:00 Antibody Screen Negative 09/16/21 21:00 Bahena/IV: Voiding Method Condom Catheter Active Medications - Current Medications Current Medications: Generic Name Dose Route Start Last Admin Trade Name Freq PRN Reason Stop Dose Admin Acetaminophen 650 mg 09/16/21 23:25 09/22/21 19:04 Acetaminophen 325 Mg Tab PO 650 mg Q4H PRN Administration Pain MILD(1-3)/Fever >100.5/CAAL Aspirin 81 mg 09/22/21 10:00 09/22/21 10:13 Aspirin 81 Mg Tab Chew PO 81 mg QDAY DG Administration Carvedilol 12.5 mg 09/22/21 11:00 09/22/21 21:33 Carvedilol 12.5 Mg Tab PO 12.5 mg BID DG Administration Dextrose 50 ml 09/20/21 13:14 Dextrose 50% In Water (25gm) 50 Ml Syringe IV Q30MIN PRN Hypoglycemia Protocol Famotidine 20 mg 09/22/21 10:00 09/22/21 21:33 Famotidine 20 Mg Tab PO 20 mg BID DG Administration Folic Acid 1 mg 09/22/21 10:00 09/22/21 10:15 Folic Acid 1 Mg Tab PO 1 mg QDAY DG Administration Hydralazine HCl 10 mg 09/16/21 23:42 09/20/21 17:37 Hydralazine 20 Mg/1 Ml Inj IV 10 mg Q6H PRN Administration Blood Pressure Levetiracetam 1,500 mg 09/22/21 10:00 09/22/21 21:32 Levetiracetam 500 Mg/5 Ml Oral Liqd PO 1,500 mg BID DG Administration Lorazepam 2 mg 09/19/21 20:28 09/22/21 15:40 Lorazepam 2 Mg/Ml Vial IV 2 mg Q1H PRN Administration CIWA-Ar 8-15 Lorazepam 4 mg 09/19/21 20:28 09/21/21 14:33 Lorazepam 2 Mg/Ml Vial IV 4 mg Q1H PRN Administration CIWA-Ar 16-25 Lorazepam 4 mg 09/19/21 20:28 09/19/21 20:56 Lorazepam 2 Mg/Ml Vial IV 4 mg Q15MIN PRN Administration CIWA-Ar >25 Losartan Potassium 25 mg 09/22/21 10:00 09/22/21 10:09 Losartan 25 Mg Tab PO 25 mg QDAY DG Administration Ondansetron HCl 4 mg 09/16/21 23:25 Ondansetron 4 Mg/2 Ml Inj IV Q8H PRN Nausea And Vomiting Phenytoin 100 mg 09/22/21 14:00 09/22/21 21:33 Phenytoin 100 Mg/4 Ml Oral.Liqd PO 100 mg Q8HR DG Administration Quetiapine Fumarate 50 mg 09/21/21 10:00 09/22/21 21:33 Quetiapine 25 Mg Tab PO 50 mg BID DG Administration Senna/Docusate Sodium 1 tab 09/22/21 22:00 09/22/21 21:33 Sennosides/Docusate Sodium 8.6/50 Mg Tab PO 1 tab QHS DG Administration Sodium Chloride 10 ml 09/17/21 10:00 09/22/21 21:12 Sodium Chloride 0.9% 10 Ml Flush Syringe IV 10 ml BID DG Administration Sodium Chloride 10 ml 09/16/21 23:25 Sodium Chloride 0.9% 10 Ml Flush Syringe IV PRN PRN LINE FLUSH Thiamine HCl 100 mg 09/22/21 10:00 09/22/21 10:14 Thiamine 100 Mg Tab PO 100 mg QDAY DG Administration Nutrition/Malnutrition Assess - Dietary Evaluation Nutrition/Malnutrition Findings: Nutrition Notes Start: 09/17/21 11:59 Freq: Status: Active Protocol: Document 09/21/21 14:37 DCNALINI (Rec: 09/21/21 14:47 [facility] [id number]) Nutrition Notes Initial or Follow up Reassessment Other Pertinent Diagnosis Seizure D/O, Hyperthermia, EtOH dependence, legally blind Current Diet TF - Vital AF 1.2 at 60ml/hr Labs/Tests Na 132 Pertinent Medications Dilantin q8h Height 6 ft 2 in Weight 62.3 kg Leona Body Weight (kg) 86.36 BMI 17.6 Weight Status Underweight Subjective/Other Information Pt extubated yesterday; passed bedside swallow evaluation. MOLECULAR MODELER evaluation ordered this am . No TF infusing at time of visit today. Burn Absent Trauma Absent #2 Nutrition Diagnosis Underweight Diagnosis Progress(for reassessment Continues documentation) #1 Nutrition Diagnosis Inadequate oral intake Diagnosis Progress(for reassessment Continues documentation) Is patient on ventilator? No Is Patient Ambulatory and/or Out of Bed No REE-([facility]-confined to bed) 1778.796 Kcal/Kg value to use for calculation 35 Approximate Energy Requirements Using 2181 kcal/Kg Calculation Used for Recommendations Kcal/kg Additional Notes Pro needs 1.2-2g/k-125g/ day Fluid needs 1ml/kcal Nutrition Intervention Nutrition Support: Continue Vital AF 1.2 if unable to advance diet. Adjust rate for dilantin administration if dilantin administered via PEG tube. Goal #1 Resume EN support if unable to advance diet Follow-Up By: 09/23/21 Additional Comments F/U: MOLECULAR MODELER evaluation, diet advancement vs TF restart ( adjust rate for dilantin administration)
[2021-09-22] MEDS ORDERED: carvediloL 6.25 MG TAB PO SCH (10:00)
[2021-09-22] MEDS: MULTIVITAMIN / MINERAL ORAL LIQUID 15 ML FEEDTUBE SCH (10:07)
[2021-09-22] MEDS: carvediloL 6.25 MG TAB FEEDTUBE SCH (10:08)
[2021-09-22] MEDS: QUEtiapine 25 MG TAB PO SCH ×2 (10:08→21:33)
[2021-09-22] MEDS: FOLIC ACID 1 MG TAB FEEDTUBE SCH (10:08)
[2021-09-22] MEDS: ASPIRIN 81 MG TAB CHEW FEEDTUBE SCH (10:08)
[2021-09-22] MEDS: THIAMINE 100 MG TAB FEEDTUBE SCH (10:08)
[2021-09-22] MEDS: levETIRAcetam 500 MG/5 ML ORAL LIQD FEEDTUBE SCH (10:08)
[2021-09-22] MEDS: LOSARTAN 25 MG TAB PO SCH (10:09)
[2021-09-22] MEDS: FAMOTIDINE 20 MG TAB PO SCH ×2 (10:10→21:33)
[2021-09-22] MEDS: ASPIRIN 81 MG TAB CHEW PO SCH (10:13)
[2021-09-22] MEDS: levETIRAcetam 500 MG/5 ML ORAL LIQD PO SCH ×2 (10:13→21:32)
[2021-09-22] MEDS: MULTIVITAMIN / MINERAL ORAL LIQUID 15 ML PO SCH (10:13)
[2021-09-22] MEDS: THIAMINE 100 MG TAB PO SCH (10:14)
[2021-09-22] MEDS: FOLIC ACID 1 MG TAB PO SCH (10:15)
[2021-09-22] MEDS: carvediloL 12.5 MG TAB PO SCH ×2 (10:17→21:33)
--- NOTE | 2021-09-22 10:21 | Progress Note ---
Assessment and Plan 66 y/o male with acute respiratory failure secondary to seizures, likely prompted by hyperthermia (multifactorial including drugs). 09/22/21: Weaned to room air. Will transfer to floor. 09/21/21: Offered patient tramadol if he wants something for pain stronger than tylenol. Will not give IV pain meds. Swallow evaluation. Will start BID seroquel and if tolerates being off precedex, transfer to floor, tele given his admission history. 09/20/21: Will attempt extubation today. There has been no further seizure like activity. Continue to monitor for withdrawal symptoms 09/19/21: No sedation. EEG still not available. Monitor fluid balance. PSV as tolerated. 09/18/21: No sedation. Follow up EEG results. Echo results are stable with depressed EF. Continue PSV trials as tolerated. 1. Continue to monitor off sedation 2. There was question of GI bleed but no active bleeding seen and stable H/H, will stop PPI and octreotide 3. Does not appear to infectious causes for encephalopathy and or fever, will stop abx therapy 4. Agree with EEG for seizures, especially given lack of improvement in mental state. Tele neuro seeing patient 5. Feed patient 6. Cards consulted. Prior echo shows and EF of 30%, repeating today. cct 31 minutes Subjective Date of service: 09/22/21 Principal diagnosis: pSVT Interval history: No acute events. stable on room air. Sitting up drinking juice. Objective Vital Signs - 12hr 09/21/21 09/21/21 09/21/21 22:30 23:00 23:29 Temperature 98.8 F Pulse Rate 101 H 92 H Pulse Rate [ Bilateral Radial] Pulse Rate [ From Monitor] Respiratory 19 24 Rate Blood Pressure 99/52 94/54 O2 Sat by Pulse 99 100 Oximetry 09/21/21 09/21/21 09/22/21 23:31 23:49 00:01 Temperature Pulse Rate 86 92 H 89 Pulse Rate [ Bilateral Radial] Pulse Rate [ 86 From Monitor] Respiratory 22 24 24 Rate Blood Pressure 110/63 110/63 119/59 O2 Sat by Pulse 98 96 97 Oximetry 09/22/21 09/22/21 09/22/21 00:30 01:00 01:30 Temperature Pulse Rate 92 H 92 H 92 H Pulse Rate [ Bilateral Radial] Pulse Rate [ From Monitor] Respiratory 22 22 25 H Rate Blood Pressure 115/59 132/73 119/66 O2 Sat by Pulse 98 99 94 Oximetry 09/22/21 09/22/21 09/22/21 02:00 02:31 03:00 Temperature Pulse Rate 92 H 91 H 92 H Pulse Rate [ Bilateral Radial] Pulse Rate [ From Monitor] Respiratory 23 24 26 H Rate Blood Pressure 124/71 106/61 106/61 O2 Sat by Pulse 100 100 97 Oximetry 09/22/21 09/22/21 09/22/21 03:30 04:00 04:30 Temperature 97.8 F Pulse Rate 92 H 90 95 H Pulse Rate [ Bilateral Radial] Pulse Rate [ 83 From Monitor] Respiratory 21 26 H 23 Rate Blood Pressure 133/71 132/69 127/71 O2 Sat by Pulse 100 100 96 Oximetry 09/22/21 09/22/21 09/22/21 05:01 05:30 06:01 Temperature Pulse Rate 92 H 97 H 92 H Pulse Rate [ Bilateral Radial] Pulse Rate [ From Monitor] Respiratory 25 H 18 23 Rate Blood Pressure 138/72 140/74 160/87 O2 Sat by Pulse 98 96 98 Oximetry 09/22/21 09/22/21 09/22/21 06:30 07:00 07:30 Temperature Pulse Rate 94 H 98 H 92 H Pulse Rate [ Bilateral Radial] Pulse Rate [ From Monitor] Respiratory 25 H 22 25 H Rate Blood Pressure 144/79 136/80 138/72 O2 Sat by Pulse 97 95 Oximetry 09/22/21 09/22/21 09/22/21 08:00 08:58 10:08 Temperature 98.6 F Pulse Rate 97 H 94 H Pulse Rate [ 96 H Bilateral Radial] Pulse Rate [ 97 H From Monitor] Respiratory 26 H Rate Blood Pressure 125/84 155/74 O2 Sat by Pulse 96 96 Oximetry 09/22/21 09/22/21 10:09 10:17 Temperature Pulse Rate 94 H 98 H Pulse Rate [ Bilateral Radial] Pulse Rate [ From Monitor] Respiratory Rate Blood Pressure 155/74 155/74 O2 Sat by Pulse Oximetry CBC and BMP: 09/21/21 04:00 09/22/21 00:49 ABG, PT/INR, D-dimer: ABG ABG pH 7.432 pH Units (7.350-7.450) 09/20/21 05:18 ABG pCO2 43.4 mm Hg 09/20/21 05:18 ABG pO2 88.4 mm Hg (80.0-90.0) 09/20/21 05:18 ABG O2 Saturation 97.2 % (95.0-99.0) 09/20/21 05:18 PT/INR, D-dimer PT 16.1 Sec. (12.2-14.9) H 09/16/21 19:53 INR 1.16 (0.87-1.13) H 09/16/21 19:53 Abnormal lab findings: Abnormal Labs 09/16/21 09/16/21 09/16/21 16:59 17:10 17:14 Hct MCV 96 H MCH 33 H MCHC Plt Count Lymph % (Auto) Terrell % (Auto) 7.9 H Lymph # (Auto) Seg Neutrophils % PT INR ABG pH ABG pO2 ABG HCO3 ABG O2 Saturation ABG Base Excess ABG Hemoglobin Sodium Potassium Chloride Carbon Dioxide BUN Creatinine Glucose POC Glucose 144 H Lactic Acid Calcium Phosphorus Magnesium Direct Bilirubin Total Protein Albumin Urine WBC (Auto) 59.0 H 09/16/21 09/16/21 09/16/21 17:14 17:14 19:53 Hct MCV MCH MCHC Plt Count Lymph % (Auto) Terrell % (Auto) Lymph # (Auto) Seg Neutrophils % PT 16.1 H INR 1.16 H ABG pH ABG pO2 ABG HCO3 ABG O2 Saturation ABG Base Excess ABG Hemoglobin Sodium 135 L Potassium 5.2 H Chloride Carbon Dioxide 16 L BUN Creatinine Glucose 130 H POC Glucose Lactic Acid 3.20 H* Calcium Phosphorus Magnesium 1.40 L Direct Bilirubin Total Protein Albumin Urine WBC (Auto) 09/16/21 09/17/21 09/17/21 20:00 05:10 05:16 Hct 35.0 L D MCV 95 H MCH 33 H MCHC 35 H Plt Count 87 L Lymph % (Auto) 13.1 L Terrell % (Auto) 11.8 H Lymph # (Auto) 0.7 L Seg Neutrophils % 74.9 H PT INR ABG pH 7.333 L ABG pO2 433.9 H 120.3 H ABG HCO3 ABG O2 Saturation 99.6 H ABG Base Excess -3.5 L -4.3 L ABG Hemoglobin 13.1 L 12.1 L Sodium Potassium Chloride Carbon Dioxide BUN Creatinine Glucose POC Glucose Lactic Acid Calcium Phosphorus Magnesium Direct Bilirubin Total Protein Albumin Urine WBC (Auto) 09/17/21 09/17/21 09/18/21 05:16 09:18 00:10 Hct MCV MCH MCHC Plt Count Lymph % (Auto) Terrell % (Auto) Lymph # (Auto) Seg Neutrophils % PT INR ABG pH ABG pO2 ABG HCO3 ABG O2 Saturation ABG Base Excess ABG Hemoglobin Sodium Potassium 2.9 L* D 3.4 L Chloride Carbon Dioxide 21 L BUN Creatinine Glucose 108 H POC Glucose 116 H Lactic Acid Calcium 7.7 L D Phosphorus Magnesium Direct Bilirubin Total Protein 5.4 L D Albumin 3.1 L Urine WBC (Auto) 09/18/21 09/18/21 09/18/21 04:45 05:17 Unknown Hct MCV 95 H MCH MCHC Plt Count 89 L Lymph % (Auto) Terrell % (Auto) Lymph # (Auto) Seg Neutrophils % PT INR ABG pH ABG pO2 107.9 H ABG HCO3 ABG O2 Saturation ABG Base Excess ABG Hemoglobin 13.3 L Sodium Potassium Chloride Carbon Dioxide BUN Creatinine Glucose POC Glucose 133 H Lactic Acid Calcium Phosphorus Magnesium Direct Bilirubin Total Protein Albumin Urine WBC (Auto) 09/18/21 09/18/21 09/19/21 Unknown Unknown 00:27 Hct MCV MCH MCHC Plt Count Lymph % (Auto) Terrell % (Auto) Lymph # (Auto) Seg Neutrophils % PT INR ABG pH ABG pO2 ABG HCO3 ABG O2 Saturation ABG Base Excess ABG Hemoglobin Sodium 136 L Potassium Chloride Carbon Dioxide BUN Creatinine 0.6 L Glucose 134 H POC Glucose 107 H Lactic Acid 0.60 L Calcium 8.2 L Phosphorus 1.60 L Magnesium 1.40 L Direct Bilirubin Total Protein Albumin Urine WBC (Auto) 09/19/21 09/19/21 09/19/21 03:35 05:59 05:59 Hct MCV 95 H MCH 33 H MCHC 35 H Plt Count 88 L Lymph % (Auto) Terrell % (Auto) Lymph # (Auto) Seg Neutrophils % PT INR ABG pH ABG pO2 110.7 H ABG HCO3 ABG O2 Saturation ABG Base Excess ABG Hemoglobin 10.8 L Sodium 133 L Potassium 3.4 L Chloride Carbon Dioxide BUN 7 L Creatinine 0.5 L Glucose 116 H POC Glucose Lactic Acid Calcium 8.2 L Phosphorus 2.10 L D Magnesium 1.40 L Direct Bilirubin Total Protein Albumin Urine WBC (Auto) 09/19/21 09/20/2109/20/22 21:33 04:00 04:00 Hct MCV 95 H MCH MCHC Plt Count 105 L Lymph % (Auto) Terrell % (Auto) Lymph # (Auto) Seg Neutrophils % PT INR ABG pH ABG pO2 ABG HCO3 ABG O2 Saturation ABG Base Excess ABG Hemoglobin Sodium 134 L 134 L Potassium Chloride 97.0 L Carbon Dioxide BUN 6 L 8 L Creatinine 0.5 L 0.5 L Glucose 158 H 113 H POC Glucose Lactic Acid Calcium Phosphorus Magnesium Direct Bilirubin 0.3 H Total Protein 5.9 L Albumin 3.0 L Urine WBC (Auto) 09/20/21 09/21/21 09/21/21 05:18 04:00 04:00 Hct MCV 96 H MCH 33 H MCHC 35 H Plt Count Lymph % (Auto) Terrell % (Auto) Lymph # (Auto) Seg Neutrophils % PT INR ABG pH ABG pO2 ABG HCO3 28.3 H ABG O2 Saturation ABG Base Excess 3.6 H ABG Hemoglobin 10.0 L Sodium 132 L Potassium Chloride 95.8 L Carbon Dioxide BUN Creatinine 0.6 L Glucose 107 H POC Glucose Lactic Acid Calcium Phosphorus Magnesium Direct Bilirubin Total Protein Albumin Urine WBC (Auto) 09/21/21 09/21/21 09/22/21 06:21 21:21 00:49 Hct MCV MCH MCHC Plt Count Lymph % (Auto) Terrell % (Auto) Lymph # (Auto) Seg Neutrophils % PT INR ABG pH ABG pO2 ABG HCO3 ABG O2 Saturation ABG Base Excess ABG Hemoglobin Sodium Potassium Chloride Carbon Dioxide BUN Creatinine 0.6 L Glucose 112 H POC Glucose 109 H 112 H Lactic Acid Calcium Phosphorus Magnesium Direct Bilirubin Total Protein Albumin Urine WBC (Auto) Allied health notes reviewed: nursing
--- NOTE | 2021-09-22 11:08 | Progress Note ---
Assessment and Plan Patient is a 66-year-old homeless male with past medical history of of asthma, alcoholism, pancreatitis, legally blind, and seizures who was brought to the ED due to altered mental status yesterday AMS-neurology follow Acute respiratory failure-pulmonology following SVT versus a flutter Seizures Malignant hyperthermia History of alcoholism History of asthma Cardiomyopathy Positive for amphetamines Echo 12/15/2020-EF 30 to 35%. Left ventricle is mildly dilated. Severe hypokinesis is noted on the whole apex with a relative hyperdynamic base for suggestive of stress cardiomyopathy. Left atrium is mildly dilated. Right ventricular systolic function is normal. Ascending aorta mildly dilated Echo 09/16/2021-EF 35 to 40%. Right ventricle systolic function is normal. Right ventricle is mildly dilated. Aortic valve is normal in structure no aortic regurgitation. Trace mitral regurgitation. Trace tricuspid regurgitation Plan: Telemetry reviewed patient currently in sinus rhythm Suspect SVT as a result of amphetamines, electrolyte abnormality, and malignant hyperthermia Telemetry reviewed patient currently in sinus rhythm Telemetry reviewed patient heart rate sinus 90s and patient hypertensive will increase to carvedilol 12.5 mg p.o. twice daily for further rate and BP control Continue aspirin ,and losartan 25 mg p.o. daily We will plan for outpatient ischemic eval due to patient's current mental status Patient currently on CIWA protocol. Management per primary Cardiac status appears otherwise stable Patient seen in conjunction with Dr. Potter who agrees with plan of care - Patient Problems (1) ETOH abuse Current Visit: No Status: Acute (2) Hyponatremia Current Visit: No Status: Acute (3) Seizures Current Visit: Yes Status: Acute (4) Alcohol abuse Current Visit: No Status: Chronic (5) Malignant hyperthermia Current Visit: Yes Status: Acute (6) Acute respiratory failure Current Visit: Yes Status: Acute (7) SVT (supraventricular tachycardia) Current Visit: Yes Status: Acute (8) Hypokalemia Current Visit: No Status: Acute (9) Lactic acidosis Current Visit: Yes Status: Acute Subjective Date of service: 09/22/21 Principal diagnosis: pSVT Interval history: Patient resting in bed in no acute distress with improved mental status Sinus 90s on monitor with no events Objective Vital Signs Temp Pulse Pulse Pulse Resp BP Pulse Ox 09/22/21 10:35 94 H 155/74 09/22/21 10:17 98 H 155/74 09/22/21 10:09 94 H 155/74 09/22/21 10:08 94 H 155/74 09/22/21 08:58 96 09/22/21 08:00 98.6 F 97 H 96 H 97 H 26 H 125/84 96 09/22/21 07:30 92 H 25 H 138/72 09/22/21 07:00 98 H 22 136/80 95 09/22/21 06:30 94 H 25 H 144/79 97 09/22/21 06:01 92 H 23 160/87 98 09/22/21 05:30 97 H 18 140/74 96 09/22/21 05:01 92 H 25 H 138/72 98 09/22/21 04:30 95 H 23 127/71 96 09/22/21 04:00 97.8 F 90 83 26 H 132/69 100 09/22/21 03:30 92 H 21 133/71 100 09/22/21 03:00 92 H 26 H 106/61 97 09/22/21 02:31 91 H 24 106/61 100 09/22/21 02:00 92 H 23 124/71 100 09/22/21 01:30 92 H 25 H 119/66 94 09/22/21 01:00 92 H 22 132/73 99 09/22/21 00:30 92 H 22 115/59 98 09/22/21 00:01 89 24 119/59 97 09/21/21 23:49 92 H 86 24 110/63 96 09/21/21 23:31 86 22 110/63 98 09/21/21 23:29 98.8 F 09/21/21 23:00 92 H 24 94/54 100 09/21/21 22:30 101 H 19 99/52 99 09/21/21 22:00 105 H 25 H 121/49 97 09/21/21 21:30 105 H 12 140/81 100 09/21/21 21:06 100 09/21/21 21:02 102 H 135/77 09/21/21 21:00 98 H 21 135/77 97 09/21/21 20:30 90 23 175/93 100 09/21/21 20:01 99 H 24 168/91 100 09/21/21 20:00 99.8 F H 09/21/21 19:56 101 H 22 100 09/21/21 19:30 98 H 24 137/89 98 09/21/21 19:00 98 H 24 140/81 99 09/21/21 18:30 103 H 23 146/86 100 09/21/21 18:00 95 H 27 H 138/81 99 09/21/21 17:30 95 H 26 H 153/88 99 09/21/21 17:00 96 H 25 H 143/87 98 09/21/21 16:30 91 H 22 149/79 98 09/21/21 16:00 98.2 F 94 H 99 H 24 158/90 100 09/21/21 15:30 93 H 24 155/86 98 09/21/21 15:00 91 H 23 150/90 99 09/21/21 14:31 96 H 22 147/91 99 09/21/21 14:00 90 26 H 150/84 98 09/21/21 13:30 94 H 24 159/83 09/21/21 13:01 99 H 19 118/90 09/21/21 12:31 102 H 15 118/90 09/21/21 12:00 97.8 F 90 90 21 129/63 95 09/21/21 11:30 94 H 23 143/79 98 - Physical Examination General: No Apparent Distress, Other (Altered mental status) HEENT: Positive: Normocephaly Neck: Positive: trachea midline. Negative: JVD/HJR Cardiac: Positive: Reg Rate and Rhythm Lungs: Positive: Normal Breath Sounds Neuro: Positive: Other Abdomen: Positive: Soft Skin: Negative: Rash Extremities: Present: upper extr. pulses. Absent: edema - Labs and Meds Comprehensive Metabolic Panel 09/22/21 Range/Units 00:49 Sodium 138 (137-145) mmol/L Potassium 4.1 (3.6-5.0) mmol/L Chloride 99.8 (98-107) mmol/L Carbon Dioxide 24 (22-30) mmol/L BUN 9 (9-20) mg/dL Creatinine 0.6 L (0.8-1.3) mg/dL Glucose 112 H (75-100) mg/dL Calcium 8.7 (8.4-10.2) mg/dL - Imaging and Cardiology EKG: report reviewed, image reviewed Echo: report reviewed - Telemetry EKG Rhythm: Sinus Rhythm - EKG Sinus rhythms and dysrhythmias: sinus rhythm - Allied health notes Allied health notes reviewed: nursing
[2021-09-22] MEDS: PHENYTOIN 100 MG/4 ML ORAL.LIQD PO SCH ×2 (15:00→21:33)
[2021-09-22] MEDS: LORazepam 2 MG/ML VIAL IV PRN (15:40)
[2021-09-22] MEDS: ACETAMINOPHEN 325 MG TAB PO PRN (19:04)
[2021-09-22] MEDS: SENNOSIDES/DOCUSATE SODIUM 8.6/50 MG TAB PO SCH (21:33)
[2021-09-23 01:28] LABS: BUN/Creatinine Ratio 9; Blood Urea Nitrogen 7 mg/dL (9-20); Calcium 9.2 mg/dL (8.4-10.2); Hemolysis Index 10
[2021-09-23 01:36] LABS: Basophils # (Auto) 0.1 K/mm3 (0.0-0.1); Basophils % (Auto) 1.3 % (0.0-1.8); Eosinophils # (Auto) 0.1 K/mm3 (0.0-0.4); Hematocrit 38.6 % (35.5-45.6); Hemoglobin 13.6 gm/dl (11.8-15.2); Lymphocytes # (Auto) 1.1 K/mm3 (1.2-5.4); Lymphocytes % (Auto) 20.7 % (13.4-35.0); Mean Corpuscular HGB Conc 35 % (32-34); Mean Corpuscular Volume 95 fl (84-94); Monocytes # (Auto) 0.8 K/mm3 (0.0-0.8); Monocytes % (Auto) 15.6 % (0.0-7.3); Platelet Count 214 K/mm3 (140-440); Red Blood Count 4.05 M/mm3 (3.65-5.03); Red Cell Distribution Width 13.5 % (13.2-15.2)
[2021-09-23] MEDS: PHENYTOIN 100 MG/4 ML ORAL.LIQD PO SCH ×3 (07:26→21:05)
--- NOTE | 2021-09-23 08:54 | Discharge Summary ---
Providers - Providers Date of Admission: 09/16/21 23:25 Attending physician: LUIS BAEZ MD 09/16/21 23:32 Consult to Physician [CONS] Routine Comment: Consulting Provider: NAEL MONSIVAIS Physician Instructions: Reason For Exam: svt Consult to Physician [CONS] Routine Comment: Consulting Provider: BLANCA SEVILLA Physician Instructions: Reason For Exam: seizure 09/17/21 11:42 Consult to Dietitian/Nutrition [CONS] Routine Physician Instructions: Reason For Exam: Reason for Consult: Write/Manage Tube Feeding 09/21/21 08:48 Physical Therapy Evaluation and Treat [CONS] Routine Comment: Reason For Exam: debility, eval/tx Speech Therapy Evaluation and Treat [CONS] Routine Reason For Exam: eval and tx Primary care physician: PHARMACEUTICAL ENGINEER Hospitalization Reason for admission: ams Condition: Stable Hospital course: This is a 66-year-old male with asthma, EtOH abuse, pancreatitis, legally blind, seizure disorder, gout, heart failure with reduced EF and COVID-19 infection 03/2021) who presented to emergency department via EMS after being found with altered mental status and being "very warm to touch" after being found with a fall and winter jacket on. On arrival to the emergency department patient was on a nonrebreather and appeared to be tremulous and confused and not responding. Per EMS in route patient had SVT which was treated with 6 and 12 mg of adenosine with no effect. Upon arrival to the emergency department patient had ECG which revealed narrow regular supraventricular tachycardia with heart rate in the 1 70-1 80 and given the patient was confused and altered patient was given additional 12 mg of adenosine with no change and then synchronized cardioverted at 100 J which did not convert as well. After this patient was given Cardizem 20 mg x 1 and 25 mg x 1 which converted patient to sinus rhythm/ST. On arrival to the emergency department patient was also hypothermic at 107.3 F per documentation patient also had recurrent seizures in the ED and was intubated for airway protection and started on a Ativan drip. Patient also had a positive occult and was started on octreotide and Protonix drip. Patient's UDS was also positive for amphetamines and per teleneurology patient was recommended to be switched to midazolam if seizure activity persistent with lorazepam. Patient was admitted to the hospitalist service with acute hypoxic respiratory failure, malignant hyperthermia, seizures, hypomagnesemia, lactic acidosis and SVT with [place] [facility] [place] and [place]y. Hospital course to date: 09/17: Octreotide/Protonix drip discontinued, potassium replaced with IV KCl and repeat potassium 3.4 repleted with p.o. potassium. Antibiotics discontinued however this evening patient blood culture resulted with gram-positive cocci and he was given one-time dose of vancomycin. IV fluids discontinued, tube feeding started. MRI brain pending however unable to complete checklist due to altered mental status and no family in chart. Rate decreased on ventilator to 18 and repeat echocardiogram pending. 09/18: CPAP trials starting today. Resume home coreg. No acute events overnight. 09/19: Patient on CPAP trial today however was switched back to assist control. Intermittently following commands. No acute events reported overnight. Hypokalemia, hypophosphatemia and hypomagnesemia repleted. 09/20: Placed on CPAP, overnight he was started on precedex gtt which is currently on 0.1. patient seen at bedside. he has bilateral arm restraint. came with seizure disorder likely 2/2 alcohol abuse. i reviewed lab, mar, and v/s. i discussed plan of care with dr hassan-only tramadol for pain-seraquel is ordered. patient mildly lethargic, opens eyes and responds to questions appropriately. Patient still agitated-continue sedation with Precedex. Will transfer patient to the floor when stable. 09/22/21-patient condition is stable. Precedex has been discontinued. Seroquel started. Patient is stable for transfer to the floor. Transfer patient to the floor when room is available. 09/23: Patient this morning are stable no acute distress able to carry a conversation understands that he needs to quit alcohol counseling presented and discussed for 25 minutes. He reports that he does have a place to go but I am not sure how accurate this is and will await input from case management. Otherwise is clinically stable for discharge. Will recommend an outpatient follow-up with neurology and cardiology. We will also recommend AA if he is unable to quit alcohol on his own accord. I did discuss amphetamine use he says someone may have put it in his medic in his food. He remarkably appears to know what it is but states that he does not use it Echo 12/15/2020-EF 30 to 35%. Left ventricle is mildly dilated. Severe hypokinesis is noted on the whole apex with a relative hyperdynamic base for suggestive of stress cardiomyopathy. Left atrium is mildly dilated. Right ventricular systolic function is normal. Ascending aorta mildly dilated Echo 09/16/2021-EF 35 to 40%. Right ventricle systolic function is normal. Right ventricle is mildly dilated. Aortic valve is normal in structure no aortic regurgitation. Trace mitral regurgitation. Trace tricuspid regurgitation Treatment and assessment assess outlined below. Neuro: Amphetamine use, malignant hyperthermia, seizures, h/o EtOH use, legally blind, seizure disorder -Presented with temperature of 107.3 F -Neurology consulted, appreciate recommendations -CIWA -Precedex gtt -Reorientation as needed -Maintain sleep-wake cycle -Seizure precautions -As needed analgesia -CT head with no acute intracranial abnormality -MRI brain pending -Neurology recommends to continue Keppra 500 mg twice daily, Dilantin 100 mg 3 times daily -UDS positive for amphetamines -Neurology recommends follow-up with neurology within 2 weeks with seizure restrictions and placed into care of a neurologist -Bilateral wrist restraints in place for safety -EEG completed, pending read -Thiamine, folic acid Cardiac: SVT (resolved), h/o cardiomyopathy, HFrEF -Cardiology consulted, appreciate recommendations -S/p adenosine x3, Cardizem x2 and cardioversion, amiodarone x1 -Resume home losartan, aspirin, BB -Blood pressure monitoring per protocol -On chart review patient had an echocardiogram on 12/2020 which showed a EF of 30 to 35%, severe hypokinesis of the apex and values with hyperdynamic base suggesting stress cardiomyopathy -Echo 09/16/2021 shows EF 35 to 40%. Respiratory: Acute hypoxic respiratory failure -CCM consulted, appreciate recommendations -Intubated on 09/16 with 7.50 ETT at 24 the lips for airway protection in the ED -A.m. vent settings: Assist-control rate 22, tidal volume 450, PEEP 6, FiO2 30% -PSV as tolerated -See RT notes for titration -A.m. ABG and CXR noted -VAP bundle -SPO2 monitoring GI: Moderate protein calorie malnutrition, h/o pancreatitis -24 hours 3079 ml -S/p Protonix and octreotide drip -PPI -NTR consulted for tube feedings -BR: Senna/Colace : NAD -Monitor intake and output -Renally dose medications -Avoid nephrotoxic medications -Trend BMP ID: Gram-positive cocci in clusters (1/4 bottle -likely contaminate but given 1x dose of vanco), Ecoli in tracheal aspirate systemic inflammatory response of acidosis/ -UA with moderate LE -S/p vancomycin x1 -abx: levofloxacin -f/u blood culture -Monitor WBC and temperature curve Endo: NAD/hyponatremia -Avoid hypoglycemia -Accu-Cheks q. 6 Heme: NAD -Positive guaiac but no signs of overt bleeding -Trend CBC -Transfuse hemoglobin less than 7 -SCDs to BLE while in bed Disposition: 03 [facility] Final Discharge Diagnosis (Prints w/discharge instructions): Acute metabolic encephalopathy with acute respiratory failure secondary to amphetamine use and malignant hyperthermia. Time spent for discharge: 35 mins Core Measure Documentation - Palliative Care Palliative Care/ Comfort Measures: Not Applicable - Core Measures Any of the following diagnoses?: none Exam - Physical Exam Narrative exam: General appearance: Present: no acute distress, - EENT Eyes: Present: PERRL, EOM intact ENT: poor dentition - Neck Neck: Present: normal ROM - Respiratory Respiratory effort: normal Respiratory: bilateral: CTA - Cardiovascular Rhythm: regular Heart Sounds: Present: S1 & S2. Absent: systolic murmur, diastolic murmur - Extremities Extremities: no ischemia, pulses intact, pulses symmetrical, No edema, normal temperature, normal color Peripheral Pulses: within normal limits - Abdominal General gastrointestinal: soft, non-tender, non-distended, normal bowel sounds - Integumentary Integumentary: Present: warm, dry - Psychiatric Psychiatric: cooperative - Neurologic Neurologic: CNII-XII intact, no focal deficits, moves all extremities, AAO x3 - Allied Health Allied health notes reviewed: nursing, RT - Constitutional Vitals: Temp Pulse Resp BP Pulse Ox 98.4 F 85 18 163/80 94 09/23/21 08:09 09/23/21 08:09 09/23/21 08:09 09/23/21 08:09 09/23/21 08:09 Plan Activity: advance as tolerated, fall precautions Diet: low fat Special Instructions: record daily weights, record daily BP diary, smoking cessation, physical therapy, occupational therapy Durable Medical Equipment Needed Upon Discharge: Walker-Rolling Care Plan Goals: Enroll in AA if needed for alcohol rehabilitation Follow up with: PRIMARY CARE, [Primary Care Provider] - 3-5 Days MANDADI,NAEL R, MD [Staff Physician] - 7 Days LEE COLMENARES MD [Staff Physician] - 7 Days Prescriptions: Quetiapine Fumarate [SEROquel] 50 mg PO QHS 30 Days #30 tab Colchicine [Colcrys] 0.6 mg PO BID 3 Days #6 tablet carvediloL [Coreg] 12.5 mg PO BID #60 tablet Losartan [Cozaar] 25 mg PO QDAY #30 tablet predniSONE [Deltasone] 40 mg PO QDAY 6 Days #9 tablet Phenytoin [Dilantin] 100 mg PO Q8HR 30 Days #90 capsule Folic Acid [Folvite] 1 mg PO QDAY #30 tablet Aspirin EC [Halfprin EC] 81 mg PO QDAY #30 tablet levETIRAcetam [Keppra TAB] 1,000 mg PO BID #120 tablet Multivitamin Tab [Multiple Vitamin TAB (Theragran)] 1 each PO DAILY #30 tablet Naproxen 375 mg PO BID 7 Days #14 tab Calcium Carbonate [Oscal 1250MG TAB] 1,250 mg PO BID #60 tablet Famotidine [Pepcid] 20 mg PO BID #60 tablet Thiamine [Vitamin B-1] 100 mg PO QDAY #30 tablet
[2021-09-23] MEDS: ASPIRIN 81 MG TAB CHEW PO SCH (09:22)
[2021-09-23] MEDS: levETIRAcetam 500 MG/5 ML ORAL LIQD PO SCH ×2 (09:22→21:05)
[2021-09-23] MEDS: FAMOTIDINE 20 MG TAB PO SCH ×2 (09:22→21:05)
[2021-09-23] MEDS: carvediloL 12.5 MG TAB PO SCH ×2 (09:22→21:05)
[2021-09-23] MEDS: FOLIC ACID 1 MG TAB PO SCH (09:22)
[2021-09-23] MEDS: QUEtiapine 25 MG TAB PO SCH ×2 (09:22→21:05)
[2021-09-23] MEDS: THIAMINE 100 MG TAB PO SCH (09:23)
[2021-09-23] MEDS: LOSARTAN 25 MG TAB PO SCH (09:23)
[2021-09-23] MEDS: MULTIVITAMIN / MINERAL ORAL LIQUID 15 ML PO SCH (11:15)
[2021-09-23] MEDS: ACETAMINOPHEN 325 MG TAB PO PRN (20:15)
[2021-09-23] MEDS: SENNOSIDES/DOCUSATE SODIUM 8.6/50 MG TAB PO SCH (21:05)
[2021-09-24] MEDS: PHENYTOIN 100 MG/4 ML ORAL.LIQD PO SCH ×3 (06:08→21:30)
[2021-09-24] MEDS: levETIRAcetam 500 MG/5 ML ORAL LIQD PO SCH ×2 (09:49→21:27)
[2021-09-24] MEDS: carvediloL 12.5 MG TAB PO SCH ×2 (09:50→21:28)
[2021-09-24] MEDS: FAMOTIDINE 20 MG TAB PO SCH ×2 (09:50→21:28)
[2021-09-24] MEDS: MULTIVITAMIN / MINERAL ORAL LIQUID 15 ML PO SCH (09:50)
[2021-09-24] MEDS: FOLIC ACID 1 MG TAB PO SCH (09:50)
[2021-09-24] MEDS: ASPIRIN 81 MG TAB CHEW PO SCH (09:50)
[2021-09-24] MEDS: LOSARTAN 25 MG TAB PO SCH (09:50)
[2021-09-24] MEDS: QUEtiapine 25 MG TAB PO SCH ×2 (09:50→21:28)
[2021-09-24] MEDS: ACETAMINOPHEN 325 MG TAB PO PRN (09:54)
[2021-09-24] MEDS: THIAMINE 100 MG TAB PO SCH (09:54)
--- NOTE | 2021-09-24 11:42 | Progress Note ---
Assessment and Plan Assessment and plan: This is a 66-year-old male with asthma, EtOH abuse, pancreatitis, legally blind, seizure disorder, gout, heart failure with reduced EF and COVID-19 infection 03/2021) who presented to emergency department via EMS after being found with altered mental status and being "very warm to touch" after being found with a fall and winter jacket on. On arrival to the emergency department patient was on a nonrebreather and appeared to be tremulous and confused and not responding. Per EMS in route patient had SVT which was treated with 6 and 12 mg of adenosine with no effect. Upon arrival to the emergency department patient had ECG which revealed narrow regular supraventricular tachycardia with heart rate i n the 1 70-1 80 and given the patient was confused and altered patient was given additional 12 mg of adenosine with no change and then synchronized cardioverted at 100 J which did not convert as well. After this patient was given Cardizem 20 mg x 1 and 25 mg x 1 which converted patient to sinus rhythm/ST. On arrival to the emergency department patient was also hypothermic at 107.3 F per veto calix patient also had recurrent seizures in the ED and was intubated for airway protection and started on a Ativan drip. Patient also had a positive occult and was started on octreotide and Protonix drip. Patient's UDS was also positive for amphetamines and per teleneurology patient was recommended to be switched to midazolam if seizure activity persistent with lorazepam. Patient was admitted to the hospitalist service with acute hypoxic respiratory failure, malignant hyperthermia, seizures, hypomagnesemia, lactic acidosis and SVT with consults to [facility], cardiology and neurology. Hospital course to date: 09/17: Octreotide/Protonix drip discontinued, potassium replaced with IV KCl and repeat potassium 3.4 repleted with p.o. potassium. Antibiotics discontinued however this evening patient blood culture resulted with gram-positive cocci and he was given one-time dose of vancomycin. IV fluids discontinued, tube feeding started. MRI brain pending however unable to complete checklist due to altered mental status and no family in chart. Rate decreased on ventilator to 18 and repeat echocardiogram pending. 09/18: CPAP trials starting today. Resume home coreg. No acute events overnight. 09/19: Patient on CPAP trial today however was switched back to assist control. Intermittently following commands. No acute events reported overnight. Hypokalemia, hypophosphatemia and hypomagnesemia repleted. 09/20: Placed on CPAP, overnight he was started on precedex gtt which is currently on 0.1. patient seen at bedside. he has bilateral arm restraint. came with seizure disorder likely 2/2 alcohol abuse. i reviewed lab, mar, and v/s. i discussed plan of care with dr hassan-only tramadol for pain-seraquel is ordered. patient mildly lethargic, opens eyes and responds to questions appropriately. Patient still agitated-continue sedation with Precedex. Will transfer patient to the floor when stable. 09/22/21-patient condition is stable. Precedex has been discontinued. Seroquel started. Patient is stable for transfer to the floor. Transfer patient to the floor when room is available. 09/23: Patient this morning are stable no acute distress able to carry a conversation understands that he needs to quit alcohol counseling presented and discussed for 25 minutes. He reports that he does have a place to go but I am not sure how accurate this is and will await input from case management. Otherwise is clinically stable for discharge. Will recommend an outpatient follow-up with neurology and cardiology. We will also recommend AA if he is unable to quit alcohol on his own accord. I did discuss amphetamine use he says someone may have put it in his medic in his food. He remarkably appears to know what it is but states that he does not use it 09/24: Patient remains clinically stable awaiting safe discharge. He is awake oriented x3. He needs a walker to ambulate. He understands the importance of substance cessation and verbalized understanding. Echo 12/15/2020-EF 30 to 35%. Left ventricle is mildly dilated. Severe hypokinesis is noted on the whole apex with a relative hyperdynamic base for suggestive of stress cardiomyopathy. Left atrium is mildly dilated. Right ventricular systolic function is normal. Ascending aorta mildly dilated Echo 09/16/2021-EF 35 to 40%. Right ventricle systolic function is normal. Right ventricle is mildly dilated. Aortic valve is normal in structure no aortic regurgitation. Trace mitral regurgitation. Trace tricuspid regurgitation Treatment and assessment assess outlined below. Neuro: Amphetamine use, malignant hyperthermia, seizures, h/o EtOH use, legally blind, seizure disorder -Presented with temperature of 107.3 F -Neurology consulted, appreciate recommendations -CIWA -Precedex gtt -Reorientation as needed -Maintain sleep-wake cycle -Seizure precautions -As needed analgesia -CT head with no acute intracranial abnormality -MRI brain pending -Neurology recommends to continue Keppra 500 mg twice daily, Dilantin 100 mg 3 times daily -UDS positive for amphetamines -Neurology recommends follow-up with neurology within 2 weeks with seizure restrictions and placed into care of a neurologist -Bilateral wrist restraints in place for safety -EEG completed, pending read -Thiamine, folic acid Cardiac: SVT (resolved), h/o cardiomyopathy, HFrEF -Cardiology consulted, appreciate recommendations -S/p adenosine x3, Cardizem x2 and cardioversion, amiodarone x1 -Resume home losartan, aspirin, BB -Blood pressure monitoring per protocol -On chart review patient had an echocardiogram on 12/2020 which showed a EF of 30 to 35%, severe hypokinesis of the apex and values with hyperdynamic base suggesting stress cardiomyopathy -Echo 09/16/2021 shows EF 35 to 40%. Respiratory: Acute hypoxic respiratory failure -CCM consulted, appreciate recommendations -Intubated on 09/16 with 7.50 ETT at 24 the lips for airway protection in the ED -A.m. vent settings: Assist-control rate 22, tidal volume 450, PEEP 6, FiO2 30% -PSV as tolerated -See RT notes for titration -A.m. ABG and CXR noted -VAP bundle -SPO2 monitoring GI: Moderate protein calorie malnutrition, h/o pancreatitis -24 hours 3079 ml -S/p Protonix and octreotide drip -PPI -NTR consulted for tube feedings -BR: Senna/Colace : NAD -Monitor intake and output -Renally dose medications -Avoid nephrotoxic medications -Trend BMP ID: Gram-positive cocci in clusters (1/4 bottle -likely contaminate but given 1x dose of vanco), Ecoli in tracheal aspirate systemic inflammatory response of acidosis/ -UA with moderate LE -S/p vancomycin x1 -abx: levofloxacin -f/u blood culture -Monitor WBC and temperature curve Endo: NAD/hyponatremia -Avoid hypoglycemia -Accu-Cheks q. 6 Heme: NAD -Positive guaiac but no signs of overt bleeding -Trend CBC -Transfuse hemoglobin less than 7 -SCDs to BLE while in bed History Interval history: Patient seen and examined in no acute distress alert awake oriented x3 Hospitalist Physical - Physical exam Narrative exam: General appearance: Present: no acute distress, - EENT Eyes: Present: PERRL, EOM intact ENT: poor dentition - Neck Neck: Present: normal ROM - Respiratory Respiratory effort: normal Respiratory: bilateral: CTA - Cardiovascular Rhythm: regular Heart Sounds: Present: S1 & S2. Absent: systolic murmur, diastolic murmur - Extremities Extremities: no ischemia, pulses intact, pulses symmetrical, No edema, normal te mperature, normal color Peripheral Pulses: within normal limits - Abdominal General gastrointestinal: soft, non-tender, non-distended, normal bowel sounds - Integumentary Integumentary: Present: warm, dry - Psychiatric Psychiatric: cooperative - Neurologic Neurologic: CNII-XII intact, no focal deficits, moves all extremities, AAO x3 - Allied Health Allied health notes reviewed: nursing, RT - Constitutional Vitals: Temp Pulse Resp BP Pulse Ox 97.9 F 96 H 18 140/72 95 09/24/21 11:13 09/24/21 11:13 09/24/21 11:13 09/24/21 11:13 09/24/21 11:13 General appearance: Present: no acute distress, other (bilateral arm restraint for safety) HEART Score - HEART Score Troponin: Troponin T < 0.010 ng/mL (0.00-0.029) 09/16/21 17:14 Results - Labs CBC & Chem 7: 09/23/21 00:18 09/23/21 00:18 Labs: Laboratory Last Values WBC 5.3 K/mm3 (4.5-11.0) 09/23/21 00:18 RBC 4.05 M/mm3 (3.65-5.03) 09/23/21 00:18 Hgb 13.6 gm/dl (11.8-15.2) 09/23/21 00:18 Hct 38.6 % (35.5-45.6) 09/23/21 00:18 MCV 95 fl (84-94) H 09/23/21 00:18 MCH 34 pg (28-32) H 09/23/21 00:18 MCHC 35 % (32-34) H 09/23/21 00:18 RDW 13.5 % (13.2-15.2) 09/23/21 00:18 Plt Count 214 K/mm3 (140-440) 09/23/21 00:18 Lymph % (Auto) 20.7 % (13.4-35.0) 09/23/21 00:18 [place] % (Auto) 15.6 % (0.0-7.3) H 09/23/21 00:18 Eos % (Auto) 2.0 % (0.0-4.3) 09/23/21 00:18 Baso % (Auto) 1.3 % (0.0-1.8) 09/23/21 00:18 Lymph # (Auto) 1.1 K/mm3 (1.2-5.4) L 09/23/21 00:18 [place] # (Auto) 0.8 K/mm3 (0.0-0.8) 09/23/21 00:18 Eos # (Auto) 0.1 K/mm3 (0.0-0.4) 09/23/21 00:18 Baso # (Auto) 0.1 K/mm3 (0.0-0.1) 09/23/21 00:18 Seg Neutrophils % 60.4 % (40.0-70.0) 09/23/21 00:18 Seg Neutrophils # 3.2 K/mm3 (1.8-7.7) 09/23/21 00:18 PT 16.1 Sec. (12.2-14.9) H 09/16/21 19:53 INR 1.16 (0.87-1.13) H 09/16/21 19:53 APTT 25.8 Sec. (24.2-36.6) 09/16/21 19:53 ABG pH 7.432 pH Units (7.350-7.450) 09/20/21 05:18 ABG pCO2 43.4 mm Hg 09/20/21 05:18 ABG pO2 88.4 mm Hg (80.0-90.0) 09/20/21 05:18 ABG HCO3 28.3 mmol/L (20.0-26.0) H 09/20/21 05:18 ABG O2 Saturation 97.2 % (95.0-99.0) 09/20/21 05:18 ABG O2 Content 13.5 (0.0-44) 09/20/21 05:18 ABG Base Excess 3.6 mmol/L (-2.0-3.0) H 09/20/21 05:18 ABG Hemoglobin 10.0 gm/dl (14.0-18.0) L 09/20/21 05:18 ABG Carboxyhemoglobin 1.7 % (0.0-5.0) 09/20/21 05:18 ABG Methemoglobin 0.5 % (0.0-1.5) 09/20/21 05:18 Oxyhemoglobin 95.1 % (95.0-99.0) 09/20/21 05:18 FiO2 30 % 09/20/21 05:18 Sodium 139 mmol/L (137-145) 09/23/21 00:18 Potassium 4.2 mmol/L (3.6-5.0) 09/23/21 00:18 Chloride 101.7 mmol/L (98-107) 09/23/21 00:18 Carbon Dioxide 28 mmol/L (22-30) 09/23/21 00:18 Anion Gap 14 mmol/L 09/23/21 00:18 BUN 7 mg/dL (9-20) L 09/23/21 00:18 Creatinine 0.8 mg/dL (0.8-1.3) 09/23/21 00:18 Estimated GFR > 60 ml/min 09/23/21 00:18 BUN/Creatinine Ratio 9 % 09/23/21 00:18 Glucose 112 mg/dL (75-100) H 09/23/21 00:18 POC Glucose 112 mg/dL (70-105) H 09/21/21 21:21 Lactic Acid 0.60 mmol/L (0.7-2.0) L 09/18/21 Unknown Calcium 9.2 mg/dL (8.4-10.2) 09/23/21 00:18 Phosphorus 3.30 mg/dL (2.5-4.5) D 09/19/21 21:33 Magnesium 1.70 mg/dL (1.7-2.3) 09/20/21 04:00 Total Bilirubin 0.80 mg/dL (0.1-1.2) 09/19/21 21:33 Direct Bilirubin 0.3 mg/dL (0-0.2) H 09/19/21 21:33 Indirect Bilirubin 0.5 mg/dL 09/19/21 21:33 AST 11 units/L (5-40) 09/19/21 21:33 ALT 10 units/L (7-56) 09/19/21 21:33 Alkaline Phosphatase 68 units/L (35-129) 09/19/21 21:33 Total Creatine Kinase 95 units/L (55-170) 09/17/21 09:18 Troponin T < 0.010 ng/mL (0.00-0.029) 09/16/21 17:14 NT-Pro-B Natriuret Pep 342.9 pg/mL (0-900) 09/16/21 17:14 Total Protein 5.9 g/dL (6.3-8.2) L 09/19/21 21:33 Albumin 3.0 g/dL (3.9-5) L 09/19/21 21:33 Albumin/Globulin Ratio 1.0 % 09/19/21 21:33 Urine Color (Yellow) 09/16/21 17:10 Urine Turbidity Cloudy (Clear) 09/16/21 17:10 Urine pH 5.0 (5.0-7.0) 09/16/21 17:10 Ur Specific [place] 1.023 (1.003-1.030) 09/16/21 17:10 Urine Protein 100 mg/dl mg/dL (Negative) 09/16/21 17:10 Urine Glucose (UA) Neg mg/dL (Negative) 09/16/21 17:10 Urine Ketones 80 mg/dL (Negative) 09/16/21 17:10 Urine Blood Sm (Negative) 09/16/21 17:10 Urine Nitrite Neg (Negative) 09/16/21 17:10 Urine Bilirubin Neg (Negative) 09/16/21 17:10 Urine Urobilinogen < 2.0 mg/dL (<2.0) 09/16/21 17:10 Ur Leukocyte Esterase Mod (Negative) 09/16/21 17:10 Urine WBC (Auto) 59.0 /HPF (0.0-6.0) H 09/16/21 17:10 Urine RBC (Auto) 8.0 /HPF (0.0-6.0) 09/16/21 17:10 U Epithel Cells (Auto) 1.0 /HPF (0-13.0) 09/16/21 17:10 Urine Bacteria (Auto) 2+ /HPF (Negative) 09/16/21 17:10 Hyaline Casts 152 /LPF 09/16/21 17:10 Urine Mucus 3+ /HPF 09/16/21 17:10 Urine Yeast (Budding) Not Reportable 09/16/21 17:10 Urine Opiates Screen Presumptive negative 09/16/21 17:13 Urine Methadone Screen Presumptive negative 09/16/21 17:13 Ur Barbiturates Screen Presumptive negative 09/16/21 17:13 Ur Phencyclidine Scrn Presumptive negative 09/16/21 17:13 Ur Amphetamines Screen Presumptive positive 09/16/21 17:13 U Benzodiazepines Scrn Presumptive negative 09/16/21 17:13 Urine Cocaine Screen Presumptive negative 09/16/21 17:13 U Marijuana (THC) Screen Presumptive negative 09/16/21 17:13 Drugs of Abuse Note Disclamer 09/16/21 17:13 Plasma/Serum Alcohol < 0.01 % (0-0.07) 09/16/21 18:17 Blood Type A POSITIVE 09/16/21 21:00 Antibody Screen Negative 09/16/21 21:00 [place]/IV: Voiding Method Urinal Active Medications - Current Medications Current Medications: Generic Name Dose Route Start Last Admin Trade Name Freq PRN Reason Stop Dose Admin Acetaminophen 650 mg 09/16/21 23:25 09/24/21 09:54 Acetaminophen 325 Mg Tab PO 650 mg Q4H PRN Administration Pain MILD(1-3)/Fever >100.5/CAAL Aspirin 81 mg 09/22/21 10:00 09/24/21 09:50 Aspirin 81 Mg Tab Chew PO 81 mg QDAY DG Administration Carvedilol 12.5 mg 09/22/21 11:00 09/24/21 09:50 Carvedilol 12.5 Mg Tab PO 12.5 mg BID DG Administration Dextrose 50 ml 09/20/21 13:14 Dextrose 50% In Water (25gm) 50 Ml Syringe IV Q30MIN PRN Hypoglycemia Protocol Famotidine 20 mg 09/22/21 10:00 09/24/21 09:50 Famotidine 20 Mg Tab PO 20 mg BID DG Administration Folic Acid 1 mg 09/22/21 10:00 09/24/21 09:50 Folic Acid 1 Mg Tab PO 1 mg QDAY DG Administration Hydralazine HCl 10 mg 09/16/21 23:42 09/20/21 17:37 Hydralazine 20 Mg/1 Ml Inj IV 10 mg Q6H PRN Administration Blood Pressure Levetiracetam 1,500 mg 09/22/21 10:00 09/24/21 09:49 Levetiracetam 500 Mg/5 Ml Oral Liqd PO 1,500 mg BID DG Administration Lorazepam 2 mg 09/19/21 20:28 09/22/21 15:40 Lorazepam 2 Mg/Ml Vial IV 2 mg Q1H PRN Administration CIWA-Ar 8-15 Lorazepam 4 mg 09/19/21 20:28 09/21/21 14:33 Lorazepam 2 Mg/Ml Vial IV 4 mg Q1H PRN Administration CIWA-Ar 16-25 Lorazepam 4 mg 09/19/21 20:28 09/19/21 20:56 Lorazepam 2 Mg/Ml Vial IV 4 mg Q15MIN PRN Administration CIWA-Ar >25 Losartan Potassium 25 mg 09/22/21 10:00 09/24/21 09:50 Losartan 25 Mg Tab PO 25 mg QDAY DG Administration Ondansetron HCl 4 mg 09/16/21 23:25 Ondansetron 4 Mg/2 Ml Inj IV Q8H PRN Nausea And Vomiting Phenytoin 100 mg 09/22/21 14:00 09/24/21 06:08 Phenytoin 100 Mg/4 Ml Oral.Liqd PO 100 mg Q8HR DG Administration Quetiapine Fumarate 50 mg 09/21/21 10:00 09/24/21 09:50 Quetiapine 25 Mg Tab PO 50 mg BID DG Administration Senna/Docusate Sodium 1 tab 09/22/21 22:00 09/23/21 21:05 Sennosides/Docusate Sodium 8.6/50 Mg Tab PO 1 tab QHS DG Administration Sodium Chloride 10 ml 09/17/21 10:00 09/24/21 09:51 Sodium Chloride 0.9% 10 Ml Flush Syringe IV 10 ml BID DG Administration Sodium Chloride 10 ml 09/16/21 23:25 Sodium Chloride 0.9% 10 Ml Flush Syringe IV PRN PRN LINE FLUSH Thiamine HCl 100 mg 09/22/21 10:00 09/24/21 09:54 Thiamine 100 Mg Tab PO 100 mg QDAY DG Administration Nutrition/Malnutrition Assess - Dietary Evaluation Nutrition/Malnutrition Findings: Nutrition Notes Start: 09/17/21 11:59 Freq: Status: Active Protocol: Document 09/23/21 12:14 MACIEJ (Rec: 09/23/21 12:40 MACIEJ [id number]) Nutrition Notes Initial or Follow up Brief Note Current Diagnosis Malnutrition Other Pertinent Diagnosis s/p Hyperthermia, Metabolic Encephalopathy, Pancreatitis, Cardiomyopathy... Current Diet Mechanical Soft Diet (since B 09/22). Height 6 ft 2 in Weight 62.3 kg [place] Body Weight (kg) 86.36 BMI 17.6 Weight change and time frame No body weight change reported in 1 week. Weight Status Underweight Subjective/Other Information RD consult for routine F/U on dietary advancement. Diet advanced to PO, Pt's PO intake of meals has been Good (100%) and well tolerated, according to ADL notes. Pt is on Room Air, O2 saturation @ 100%, according to Phjysical Assessment History notes. Pt cleared clinically for discharge, awaiting for place confirmation. Percent of energy/protein needs met: Prescribed Mechanical Soft Diet provides for energy/ protein needs (2,048 Kcal/97 g ) during LOS. #2 Nutrition Diagnosis Underweight Diagnosis Progress(for reassessment Continues documentation) #1 Nutrition Diagnosis Inadequate energy intake Comments: Diet advanced to PO, Pt's PO intake of meals has been Good (100%) and well tolerated, according to ADL notes. Diagnosis Progress(for reassessment Resolved documentation) Is patient on ventilator? No Is Patient Ambulatory and/or Out of Bed No REE-([facility]-confined to bed) 1778.796 Kcal/Kg value to use for calculation 35 Approximate Energy Requirements Using 2181 kcal/Kg Calculation Used for Recommendations Kcal/kg Additional Notes Protein: 1.2-2 g/Kg ABW; 75- 125 g/day. Fluids: 1 ml/Kcal, or as per MD. Nutrition Intervention Change Diet Order: Continue Mechanical Soft Diet as tolerated. Nutrition Support: Discontinued. Goal #1 Adjust the dietary intervention to better serve Pt's needs and clinical conditions during LOS. Follow-Up By: 09/30/21 Additional Comments Continue monitoring food tolerance, %PO intake of meals , and BM.
[2021-09-24] MEDS: SENNOSIDES/DOCUSATE SODIUM 8.6/50 MG TAB PO SCH (21:28)
[2021-09-25] MEDS: PHENYTOIN 100 MG/4 ML ORAL.LIQD PO SCH ×2 (05:03→13:04)
[2021-09-25] MEDS: FOLIC ACID 1 MG TAB PO SCH (09:06)
[2021-09-25] MEDS: levETIRAcetam 500 MG/5 ML ORAL LIQD PO SCH (09:06)
[2021-09-25] MEDS: carvediloL 12.5 MG TAB PO SCH (09:06)
[2021-09-25] MEDS: FAMOTIDINE 20 MG TAB PO SCH (09:06)
[2021-09-25] MEDS: QUEtiapine 25 MG TAB PO SCH (09:06)
[2021-09-25] MEDS: THIAMINE 100 MG TAB PO SCH (09:06)
[2021-09-25] MEDS: ACETAMINOPHEN 325 MG TAB PO PRN (09:07)
[2021-09-25] MEDS: LOSARTAN 25 MG TAB PO SCH (09:07)
[2021-09-25] MEDS: ASPIRIN 81 MG TAB CHEW PO SCH (09:07)
--- NOTE | 2021-09-25 09:28 | Discharge Summary ---
Providers - Providers Date of Admission: 09/16/21 23:25 Attending physician: LUIS BAEZ MD 09/16/21 23:32 Consult to Physician [CONS] Routine Comment: Consulting Provider: NAEL MONSIVAIS Physician Instructions: Reason For Exam: svt Consult to Physician [CONS] Routine Comment: Consulting Provider: BLANCA SEVILLA Physician Instructions: Reason For Exam: seizure 09/17/21 11:42 Consult to Dietitian/Nutrition [CONS] Routine Physician Instructions: Reason For Exam: Reason for Consult: Write/Manage Tube Feeding 09/21/21 08:48 Physical Therapy Evaluation and Treat [CONS] Routine Comment: Reason For Exam: debility, eval/tx Speech Therapy Evaluation and Treat [CONS] Routine Reason For Exam: eval and tx Primary care physician: DIRECTOR OF [facility] Hospitalization Reason for admission: AMS Condition: Stable Hospital course: This is a 66-year-old male with asthma, EtOH abuse, pancreatitis, legally blind, seizure disorder, gout, heart failure with reduced EF and COVID-19 infection 03/2021) who presented to emergency department via EMS after being found with altered mental status and being "very warm to touch" after being found with a fall and winter jacket on. On arrival to the emergency department patient was on a nonrebreather and appeared to be tremulous and confused and not responding. Per EMS in route patient had SVT which was treated with 6 and 12 mg of adenosine with no effect. Upon arrival to the emergency department patient had ECG which revealed narrow regular supraventricular tachycardia with heart rate in the 1 70-1 80 and given the patient was confused and altered patient was given additional 12 mg of adenosine with no change and then synchronized cardioverted at 100 J which did not convert as well. After this patient was given Cardizem 20 mg x 1 and 25 mg x 1 which converted patient to sinus rhythm/ST. On arrival to the emergency department patient was also hypothermic at 107.3 F per documentation patient also had recurrent seizures in the ED and was intubated for airway protection and started on a Ativan drip. Patient also had a positive occult and was started on octreotide and Protonix drip. Patient's UDS was also positive for amphetamines and per teleneurology patient was recommended to be switched to midazolam if seizure activity persistent with lorazepam. Patient was admitted to the hospitalist service with acute hypoxic respiratory failure, malignant hyperthermia, seizures, hypomagnesemia, lactic acidosis and SVT with consults to [facility], cardiology and neurology. Hospital course to date: 09/17: Octreotide/Protonix drip discontinued, potassium replaced with IV KCl and repeat potassium 3.4 repleted with p.o. potassium. Antibiotics discontinued however this evening patient blood culture resulted with gram-positive cocci and he was given one-time dose of vancomycin. IV fluids discontinued, tube feeding started. MRI brain pending however unable to complete checklist due to altered mental status and no family in chart. Rate decreased on ventilator to 18 and repeat echocardiogram pending. 09/18: CPAP trials starting today. Resume home coreg. No acute events overnight. 09/19: Patient on CPAP trial today however was switched back to assist control. Intermittently following commands. No acute events reported overnight. Hypokalemia, hypophosphatemia and hypomagnesemia repleted. 09/20: Placed on CPAP, overnight he was started on precedex gtt which is currently on 0.1. patient seen at bedside. he has bilateral arm restraint. came with seizure disorder likely 2/2 alcohol abuse. i reviewed lab, mar, and v/s. i discussed plan of care with dr hassan-only tramadol for pain-seraquel is ordered. patient mildly lethargic, opens eyes and responds to questions appropriately. Patient still agitated-continue sedation with Precedex. Will transfer patient to the floor when stable. 09/22/21-patient condition is stable. Precedex has been discontinued. Seroquel started. Patient is stable for transfer to the floor. Transfer patient to the floor when room is available. 09/23: Patient this morning are stable no acute distress able to carry a conversation understands that he needs to quit alcohol counseling presented and discussed for 25 minutes. He reports that he does have a place to go but I am not sure how accurate this is and will await input from case management. Otherwise is clinically stable for discharge. Will recommend an outpatient follow-up with neurology and cardiology. We will also recommend AA if he is unable to quit alcohol on his own accord. I did discuss amphetamine use he says someone may have put it in his medic in his food. He remarkably appears to know what it is but states that he does not use it 09/24: Patient remains clinically stable awaiting safe discharge. He is awake oriented x3. He needs a walker to ambulate. He understands the importance of substance cessation and verbalized understanding. 09/25: Patient seen and examined, tolerating diet, no new complaints, anticipate discharge today once prior authorization from facility is recieved and covid test for placement purposes results. Echo 12/15/2020-EF 30 to 35%. Left ventricle is mildly dilated. Severe hypokinesis is noted on the whole apex with a relative hyperdynamic base for suggestive of stress cardiomyopathy. Left atrium is mildly dilated. Right ventricular systolic function is normal. Ascending aorta mildly dilated Echo 09/16/2021-EF 35 to 40%. Right ventricle systolic function is normal. Right ventricle is mildly dilated. Aortic valve is normal in structure no aortic regurgitation. Trace mitral regurgitation. Trace tricuspid regurgitation Treatment and assessment assess outlined below. Neuro: Amphetamine use, malignant hyperthermia, seizures, h/o EtOH use, legally blind, seizure disorder -Presented with temperature of 107.3 F -Neurology consulted, appreciate recommendations -CIWA -Precedex gtt -Reorientation as needed -Maintain sleep-wake cycle -Seizure precautions -As needed analgesia -CT head with no acute intracranial abnormality -MRI brain pending -Neurology recommends to continue Keppra 500 mg twice daily, Dilantin 100 mg 3 times daily -UDS positive for amphetamines -Neurology recommends follow-up with neurology within 2 weeks with seizure restrictions and placed into care of a neurologist -Bilateral wrist restraints in place for safety -EEG completed, pending read -Thiamine, folic acid Cardiac: SVT (resolved), h/o cardiomyopathy, HFrEF -Cardiology consulted, appreciate recommendations -S/p adenosine x3, Cardizem x2 and cardioversion, amiodarone x1 -Resume home losartan, aspirin, BB -Blood pressure monitoring per protocol -On chart review patient had an echocardiogram on 12/2020 which showed a EF of 30 to 35%, severe hypokinesis of the apex and values with hyperdynamic base suggesting stress cardiomyopathy -Echo 09/16/2021 shows EF 35 to 40%. Respiratory: Acute hypoxic respiratory failure -CCM consulted, appreciate recommendations -Intubated on 09/16 with 7.50 ETT at 24 the lips for airway protection in the ED -A.m. vent settings: Assist-control rate 22, tidal volume 450, PEEP 6, FiO2 30% -PSV as tolerated -See RT notes for titration -A.m. ABG and CXR noted -VAP bundle -SPO2 monitoring GI: Moderate protein calorie malnutrition, h/o pancreatitis -24 hours 3079 ml -S/p Protonix and octreotide drip -PPI -NTR consulted for tube feedings -BR: Senna/Colace : NAD -Monitor intake and output -Renally dose medications -Avoid nephrotoxic medications -Trend BMP ID: Gram-positive cocci in clusters (1/4 bottle -likely contaminate but given 1x dose of vanco), Ecoli in tracheal aspirate systemic inflammatory response of acidosis/ -UA with moderate LE -S/p vancomycin x1 -abx: levofloxacin -f/u blood culture -Monitor WBC and temperature curve Endo: NAD/hyponatremia -Avoid hypoglycemia -Accu-Cheks q. 6 Heme: NAD -Positive guaiac but no signs of overt bleeding -Trend CBC -Transfuse hemoglobin less than 7 -SCDs to BLE while in bed Disposition: [facility] Final Discharge Diagnosis (Prints w/discharge instructions): Acute metabolic encephalopathy with acute respiratory failure secondary to amphetamine use and malignant hyperthermia. Time spent for discharge: 35 mins Core Measure Documentation - Palliative Care Palliative Care/ Comfort Measures: Not Applicable - Core Measures Any of the following diagnoses?: none Exam - Physical Exam Narrative exam: General appearance: Present: no acute distress, Sitting up - EENT Eyes: Present: PERRL, EOM intact ENT: poor dentition - Neck Neck: Present: normal ROM - Respiratory Respiratory effort: normal Respiratory: bilateral: CTA - Cardiovascular Rhythm: regular Heart Sounds: Present: S1 & S2. Absent: systolic murmur, diastolic murmur - Extremities Extremities: no ischemia, pulses intact, pulses symmetrical, No edema, normal temperature, normal color Peripheral Pulses: within normal limits - Abdominal General gastrointestinal: soft, non-tender, non-distended, normal bowel sounds - Integumentary Integumentary: Present: warm, dry - Psychiatric Psychiatric: cooperative - Neurologic Neurologic: CNII-XII intact, no focal deficits, moves all extremities, AAO x3 - Allied Health Allied health notes reviewed: nursing, RT - Constitutional Vitals: Temp Pulse Resp BP Pulse Ox 98.3 F 84 18 120/78 94 09/24/21 20:44 09/25/21 03:53 09/25/21 03:53 09/25/21 03:53 09/25/21 03:53 Plan Activity: advance as tolerated, fall precautions Diet: low fat Special Instructions: record daily weights, record daily BP diary Care Plan Goals: Enroll in AA if needed for alcohol rehabilitation Follow up with: PRIMARY CARE, [Primary Care Provider] - 3-5 Days NAEL MONSIVAIS MD [Staff Physician] - 7 Days LEE COLMENARES MD [Staff Physician] - 7 Days Prescriptions: Quetiapine Fumarate [SEROquel] 50 mg PO QHS 30 Days #30 tab Colchicine [Colcrys] 0.6 mg PO BID 3 Days #6 tablet carvediloL [Coreg] 12.5 mg PO BID #60 tablet Losartan [Cozaar] 25 mg PO QDAY #30 tablet predniSONE [Deltasone] 40 mg PO QDAY 6 Days #9 tablet Phenytoin [Dilantin] 100 mg PO Q8HR 30 Days #90 capsule Folic Acid [Folvite] 1 mg PO QDAY #30 tablet Aspirin EC [Halfprin EC] 81 mg PO QDAY #30 tablet levETIRAcetam [Keppra TAB] 1,000 mg PO BID #120 tablet Multivitamin Tab [Multiple Vitamin TAB (Theragran)] 1 each PO DAILY #30 tablet Naproxen 375 mg PO BID 7 Days #14 tab Calcium Carbonate [Oscal 1250MG TAB] 1,250 mg PO BID #60 tablet Famotidine [Pepcid] 20 mg PO BID #60 tablet Thiamine [Vitamin B-1] 100 mg PO QDAY #30 tablet
[2021-09-25] MEDS: MULTIVITAMIN / MINERAL ORAL LIQUID 15 ML PO SCH (11:47)
[2021-09-25 13:47] VITALS: BP 120/78
== END 2021-09-25 16:52 | DRG 208 ==
LOC: ED 16:22 → CC1 23:25 → 4A 09-22 23:44
PROVIDERS: ADMIT Hospitalist; ATTEND Internal Medicine
PROC: 5A1945Z Respiratory Ventilation, 24-96 Consecutive Hours (ICD-10-PCS; principal; 2021-09-16)
PROC: 0BH17EZ Insertion of Endotracheal Airway into Trachea, Via Natural or Artificial Opening (ICD-10-PCS; 2021-09-16)
PROC: 05HM33Z Insertion of Infusion Device into Right Internal Jugular Vein, Percutaneous Approach (ICD-10-PCS; 2021-09-16)
PROC: B543ZZA Ultrasonography of Right Jugular Veins, Guidance (ICD-10-PCS; 2021-09-16)
PROC: 4A033R1 Measurement of Arterial Saturation, Peripheral, Percutaneous Approach (ICD-10-PCS; 2021-09-17)
DX: J96.01 Acute respiratory failure with hypoxia (principal); G93.41 Metabolic encephalopathy; I47.1 Supraventricular tachycardia; N39.0 Urinary tract infection, site not specified; E87.2 Acidosis; E44.0 Moderate protein-calorie malnutrition; Z68.1 Body mass index [BMI] 19.9 or less, adult; E87.1 Hypo-osmolality and hyponatremia; T88.3XXA Malignant hyperthermia due to anesthesia, initial encounter; I42.9 Cardiomyopathy, unspecified; I50.20 Unspecified systolic (congestive) heart failure; G40.909 Epilepsy, unspecified, not intractable, without status epilepticus; F15.922 Other stimulant use, unspecified with intoxication with perceptual disturbance; F41.9 Anxiety disorder, unspecified; E83.42 Hypomagnesemia; F10.20 Alcohol dependence, uncomplicated; E87.6 Hypokalemia; E83.39 Other disorders of phosphorus metabolism; I11.0 Hypertensive heart disease with heart failure; Z82.49 Family history of ischemic heart disease and other diseases of the circulatory system; Y92.89 Other specified places as the place of occurrence of the external cause
CPT/HCPCS: 36415; 36600; 70450; 71045; 74018; 80048; 80053; 80076; 80307; 80320; 81001; 82140; 82270; 82550; 82803; 82962; 83735; 83880; 84100; 84132; 84484; 85025; 85027; 85610; 85730; 86850; 86900; 86901; 87040; 87070; 87076; 87086; 87186; 87205; 93005; 93306; 94002; 94003; 94640; 94760; 99292; G0378; J2501; J3490; J7060; J7121; J7510; C8929; C9113; G0480; J0153; J0282; J0360; J1953; J1956; J2060; J2250; J2270; J2354; J3370; J3411; J3475; J3480; J7030; J7040; J7042; U0003